=== PATIENT | female | born 1935 | race Caucasian/White ===

== ENCOUNTER 2017-05-15 11:55 | Observation (INO) | payer MEDICARE, SELFPAY ==
[2017-05-15] VITALS (20 sets, daily range): BP systolic 103–181; BP diastolic 56–102; PULSE 63–181; RESP 12–28; TEMP 36.7–36.9; O2SAT 94–100; BMI 20.4; BMI 19.5
--- NOTE | 2017-05-15 12:05 | EKG12_ITS ---
Test Reason : CP Blood Pressure : / mmHG Vent. Rate : 154 BPM Atrial Rate : 156 BPM P-R Int : 000 ms QRS Dur : 086 ms QT Int : 292 ms P-R-T Axes : 000 045 175 degrees QTc Int : 467 ms Atrial fibrillation Marked ST abnormality, possible inferolateral subendocardial injury Abnormal ECG Confirmed by ZACK BOYCE, MAURO ([id number]), general expeditor EM LANDA ([id number] on 05/19/2017 3:51:19 PM Referred By: JOSE Confirmed By:MAURO DIXON MD
--- NOTE | 2017-05-15 12:05 | RAD_ITS ---
STUDY: X-RAY CHEST REASON FOR EXAM: Female, 81 years old. Chest pressure. TECHNIQUE: Single AP portable view of the chest. COMPARISON: Comparison is made with prior study dated March 28, 2015. FINDINGS: EKG electrodes are seen. Hyperinflation. Mild increased markings at the left lung base suggests left pleural linear scarring. There is no demonstrated pleural abnormality. Sternal cerclage wires and vascular clips are present from a prior sternotomy and coronary artery bypass graft procedure (CABG). Normal mediastinum and alexus. Normal visualized pulmonary arteries. There is atherosclerotic calcification of the aortic arch with tortuosity. Normal visualized thoracic spine. Right shoulder replacement. There is no demonstrated abnormality of the visualized soft tissue structures of the upper abdomen. RAD/Chest 1 View (Portable) IMPRESSION: Hyperinflation. Mild increased markings at the left lung base suggestive of scarring. Electronically Signed: Mariusz Alarcon MD at 12:33 EST Tel [phone], Service support ,
--- NOTE | 2017-05-15 12:07 | ED.VISSUMM ---
- ER Visit Summary Date of Service: 05/15/17 Chief Complaint: [] Rapid heart rate chest pain History of Present Illness: The patient is a 81 F [] patient reports that today she noticed rapid heart rate and chest pain she stated for a few days she is generally not felt well but nothing specific the chest pain and rapid heart rate began today. She has had no fever no cough no flu symptoms normal bowel bladder habits. She is a very uncertain historian she has a history of what appears to be a CABG and/or cardiac valve surgery, one cardiac stent and a history of intermittent A. fib, she denies a history of DE PE DVT she is not on any blood thinners or aspirin therapy she has had normal bowel bladder habits Physical Examination: [] She is noted to have A. fib 1 50- 160 on the monitor her blood pressure is 180/80 she is awake and alert feeling better now on oxygen given. And says her HEENT exam is unremarkable the heart tones are regular the lungs are diminished the abdomen soft nontender upper lower extremities unremarkable neurologically she is awake alert moving all 4 she does appear to have a CABG type healed old incision to her chest Test Results: [] Emergency Department Course and Treatment: [] She will receive aggressive therapy for the A. fib rate control fluids evaluation, additional 5 mg metoprolol given and now Heart rate now is about 120-130, additional dose of Cardizem 10 mg has been ordered, her labs chest x-ray are unremarkable she is feeling better She apparently has a history of some unspecified cardiac valvular heart disorder there is no clear documentation of cardiac valve surgery, she has a history of intermittent recurring A. fib, she is not sure of her meds Rapid A. fib RVR and the chest pain of asked the hospital see her for further management admission Treatment Plan: [] Disposition: [] Stable admit Impression: [] Chest pain, A. fib RVR, history of CAD and CABG, history of unspecified cardiac valvular heart disorder This note was generated with [employer] dictation software. It may contain incorrect words, spelling, and punctuation that were not noted in review of the chart prior to signing ED Disposition - Plan for ED Patient: Chief Complaint: Chest Pain Referrals: Rachel Bernabe DO [Primary Care Provider] -
[2017-05-15] MEDS: Ondansetron 4 MG/2 ML Vial IV (12:18)
[2017-05-15] MEDS: Metoprolol Tartrate 5 MG/5 ML Vial IV (12:19)
[2017-05-15 12:29] LABS: Absolute Lymphocyte Count 4.22 X10^3/ul (0.83-4.51); Basophil# 0.01 X10^3/uL; Basophil% 0.1 % (0-1); Eosinophil# 0.19 X10^3/uL; Eosinophils% 2.2 % (0-5); Hematocrit 39.1 % (37-47); Hemoglobin 12.8 g/dl (12.0-15.0); Lymphocyte # 4.22 X10^3/ul (4.0); Mean Corp Hgb Conc 32.7 g/gl (32-36); Mean Corpuscular Hgb 30.7 pg (27.0-32.0); Mean Corpuscular Volume 93.8 fL (81-99); Mean Platelet Vol. 9.5 fl (6.2-12.0); Monocyte# 1.18 X10^3/uL; Monocyte% 13.7 % (0-10); Neutrophil % 34.9 % (47-70); Platelet Count 275 K/mm3 (150-450); RBC Distribution Width CV 14.1 % (11.6-14.6); RBC Distribution Width SD 47.8 fl (35.1-43.9); Red Blood Count 4.17 M/mm3 (4.2-5.4); White Blood Count 8.6 K/mm3 (4.4-11.0)
[2017-05-15 12:33] LABS: POSITIVE COUNT NO; POSITIVE DIFFERENTIAL NO; POSITIVE MORPHOLOGY NO
[2017-05-15] MEDS: 0.9% Normal Saline 1,000 ML 150 ML IV (12:33)
[2017-05-15] MEDS: Aspirin 81 MG TAB.CHEW 324 MG PO (12:37)
[2017-05-15 12:41] LABS: BUN 20 mg/dL (7-18); Creatinine, Serum 0.99 mg/dL (0.55-1.02); Glucose 131 mg/dL (70-110)
[2017-05-15 12:42] LABS: Anion Gap 11 (5-15); BUN/Creat Ratio 20.2 RATIO (10-20); Calcium,Total 9.1 mg/dL (8.5-10.1); Chloride 99 mmol/L (98-107); EST Glomerular Filtration Rate 57 mL/min (>60); Est Glom Filt Rate - Afr Amer 69 mL/min (>60); Estimated Creatinine Clearance 34.65 ml/min; Potassium 3.3 mmol/L (3.5-5.1); Sodium Level 135 mmol/L (136-145)
--- NOTE | 2017-05-15 12:44 | ED.RN ---
PER PT REQUEST, DAUGHTER CONTACTED
[2017-05-15 12:57] LABS: BNP,B-Type NATRIURETIC PEPTIDE 227.8 pg/mL (0-100)
[2017-05-15] MEDS: dilTIAZem 25 MG/5 ML Vial 10 MG IV BOLUS ×2 (13:51→15:50)
--- NOTE | 2017-05-15 14:07 | PCM.HP.STD ---
Problem List (1) Atrial fibrillation with RVR Status: Acute (2) History of aortic valve disorder Status: Chronic (3) Benign essential hypertension Status: Chronic (4) Coronary atherosclerosis of [place] coronary artery Status: Chronic Comment: status post CABG and stent. (5) Hx of CABG Status: Chronic (6) HLD (hyperlipidemia) Status: Chronic (7) Osteoarthritis Status: Chronic (8) Chest pain Status: Acute (9) Flatulence/gas pain/belching Status: Acute (10) Coronary artery disease Status: Chronic (11) Mild mitral regurgitation by prior echocardiogram Status: Chronic (12) Biatrial enlargement Status: Chronic (13) Atrial fibrillation Status: Acute (14) S/P CABG x 3 Status: Chronic (15) S/P PTCA (percutaneous transluminal coronary angioplasty) Status: Chronic (16) PVD (peripheral vascular disease) Status: Chronic (17) Mitral valve regurgitation Status: Chronic (18) Aortic valve disorder Status: Chronic (19) HTN (hypertension) Status: Chronic (20) Paroxysmal atrial flutter Status: Acute (21) Acute congestive heart failure Status: Acute (22) Anemia Status: Acute (23) History of coronary artery disease Status: Chronic (24) Atypical chest pain Status: Acute History of Present Illness Date of Admission: 05/15/17 Chief Complaint: Chest pain/palpitation The patient is a 81 year old F with extensive cardiac history including coronary artery disease status post three-vessel CABG in 02/23 status post stent after [address] or [address] [facility] came to ER with left-sided chest pain. She felt like palpitation/flutter waves today in the morning when she came home from driving. She also feels very dehydrated with first. She denies associated shortness of breath, dizziness, lightheadedness or syncope. She has history of A. fib but it is paroxysmal not on anticoagulation since CABG. In ED, EKG shows A. fib with RVR at 1 54 bpm. Chest x-ray shows hyperinflation with mild increased markings at left lung base but no features suggestive of pulmonary edema/congestion. She was admitted last time in March 2015 for CHF exacerbation and at that time 2D echo shows EF 55% with no regional wall motion abnormalities. Normal LV size and systolic function. LA mildly enlarged. Normal right atrium. Normal RV size and systolic function. Mild diffuse mitral valve thickening consistent with redundant mitral valve chordae tendineae. 2+ eccentric MR. Mild AR. Trivial TR. He also had pharmacological nuclear stress test at that time which did not show any tyndfk-[id number]-ioowgfr ischemia. [] Past Medical History Past Medical History (Chronic Problems): Chronic Problems History of aortic valve disorder (Chronic) Benign essential hypertension (Chronic) Coronary atherosclerosis of [place] coronary artery (Chronic) status post CABG and stent. Hx of CABG (Chronic) HLD (hyperlipidemia) (Chronic) Osteoarthritis (Chronic) Coronary artery disease (Chronic) Mild mitral regurgitation by prior echocardiogram (Chronic) Biatrial enlargement (Chronic) S/P CABG x 3 (Chronic) S/P PTCA (percutaneous transluminal coronary angioplasty) (Chronic) PVD (peripheral vascular disease) (Chronic) Mitral valve regurgitation (Chronic) Aortic valve disorder (Chronic) HTN (hypertension) (Chronic) History of coronary artery disease (Chronic) Allergies alendronate sodium [From Fosamax] Allergy (Verified 05/15/17 12:44) Unknown atorvastatin calcium [From Lipitor] Allergy (Verified 05/15/17 12:44) Unknown colestipol HCl [From Colestid] Allergy (Verified 05/15/17 12:44) Unknown cortisone acetate [From Cortone] Allergy (Verified 05/15/17 12:44) Unknown ezetimibe [From Zetia] Allergy (Verified 05/15/17 12:44) Unknown gabapentin Allergy (Verified 05/15/17 12:44) Unknown goserelin acetate [From Zoladex] Allergy (Verified 05/15/17 12:44) Unknown nabumetone Allergy (Verified 05/15/17 12:44) Other paroxetine HCl [From Paxil] Allergy (Verified 05/15/17 12:44) Unknown rosuvastatin calcium [From Crestor] Allergy (Verified 05/15/17 12:44) Unknown sertraline HCl [From Zoloft] Allergy (Verified 05/15/17 12:44) Unknown venlafaxine HCl [From Effexor] Allergy (Verified 05/15/17 12:44) Unknown acetaminophen [From Vicodin] Adverse Reaction (Verified 05/15/17 12:44) KEEPS ME AWAKE carvedilol Adverse Reaction (Verified 05/15/17 12:44) Unknown hydrocodone bitartrate [From Vicodin] Adverse Reaction (Verified 05/15/17 12:44) KEEPS ME AWAKE Home Medications: Ambulatory Orders Medication Instructions Recorded Aspirin [Aspirin, Baby] 81 mg PO DAILY@0800 03/28/15 Calcium Carbonate [Calcium] 600 mg PO DAILY 03/28/15 Isosorbide Mononitrate [Imdur] 60 mg PO DAILY 03/28/15 Lorazepam [Ativan] 0.5 mg PO DAILY PRN 03/28/15 Nitroglycerin [Nitrostat] 0.4 mg SUBLINGUAL Q5M PRN 03/28/15 [place]-3 Fatty Acids [Fish Oil] 1,000 mg PO DAILY 03/28/15 Ramipril [Altace] 10 mg PO BID #60 capsule 03/29/15 Omeprazole [Prilosec] 40 mg PO DAILY 05/16/16 Metoprolol(XL)Succ [Toprol Xl 25 mg PO DAILY 05/15/17 (Beta Jt)] Potassium (Otc) [Potassium Otc] 99 mg PO DAILY 05/15/17 Surgical History: angioplasty, coronary bypass surgery - Coronary artery bypass grafting was done in 2011. She also had a coronary stent the following year., total knee arthroplasty - the, - Smoking Status: Never smoker - *Family History Maternal History Items: Heart Disease Paternal History Items: Heart Disease Review of Systems Constitutional: Denies: Chills, Fever, Weight Change HEENT: Denies: Head Aches, Sinus Congestion, Sinus Drainage Cardiovascular: Reports: Chest Pain, Palpitations Respiratory: Denies: Cough, Shortness of breath at rest, Sputum production Gastrointestinal: Denies: Abdominal Pain, Nausea, Vomiting Genitourinary: Denies: Dysuria Musculoskeletal: Reports: Joint Pain. Denies: Joint Tenderness Skin: Denies: Rash, Wounds Neurological: Denies: Numbness, Tingling, Focal weakness Psychiatric: Denies: Anxiety, Depression, Homicidal Ideations, Suicidal Ideations Hematologic/ Lymphatic: Denies: Easy Bruising, Easy Bleeding VTE Information - Inpt Only VTE Present on Admission: No VTE Mechan Device Prophylaxis: SCD's VTE Pharm Prophylaxis ordered?: Yes Patient Problems: Active and Suspected Problems Atrial fibrillation with RVR (Acute) Atypical chest pain (Acute) - Physical Exam General: Alert, Oriented x3, Cooperative HEENT: Atraumatic, PERRLA, EOMI, Normocephalic Neck: Supple, No JVD, Negative Carotid Bruits Lungs: Clear to auscultation, No rhonchi, No rales, Diminished Cardiovascular: Normal S1, Normal S2, Irregular Rate, Murmur, Tachycardic Abdomen: Bowel Sounds Present, Soft, Non Tender, Non-Distended Extremities: No edema, Capillary Refill Less than 3 Seconds Skin: No rashes, No breakdown Musculoskeletal: No Tenderness to Palpation of Joints or Extremities, Arthritic Changes Neurological: Cranial nerves II-XII grossly intact Psych/Mental Status: Normal Affect, Appropriate Vital Signs Temp Pulse Resp BP Pulse Ox 98.0 F 125 H 17 123/72 H 100 05/15/17 11:56 05/15/17 13:54 05/15/17 13:54 05/15/17 13:54 05/15/17 13:54 Oxygen Flow Rate 2 Oxygen Delivery Method Nasal Cannula Assessment/Plan Active and Suspected Problems Atrial fibrillation with RVR (Acute) Atypical chest pain (Acute) The patient is a 81 year old F with extensive cardiac history including coronary artery disease status post three-vessel CABG in 02/23 status post stent after [address] [facility] came to ER with left-sided chest pain. She felt like palpitation/flutter waves today in the morning when she came home from driving. She also feels very dehydrated with first. She denies associated shortness of breath, dizziness, lightheadedness or syncope. She has history of A. fib but it is paroxysmal not on anticoagulation since CABG. In ED, EKG shows A. fib with RVR at 1 54 bpm. Chest x-ray shows hyperinflation with mild increased markings at left lung base but no features suggestive of pulmonary edema/congestion. She was admitted last time in March 2015 for CHF exacerbation and at that time 2D echo shows EF 55% with no regional wall motion abnormalities. Normal LV size and systolic function. LA mildly enlarged. Normal right atrium. Normal RV size and systolic function. Mild diffuse mitral valve thickening consistent with redundant mitral valve chordae tendineae. 2+ eccentric MR. Mild AR. Trivial TR. He also had pharmacological nuclear stress test at that time which did not show any wnsmqx-zptkpzb-jeiokof ischemia. 1. Atypical chest pain most probably due to A. fib with RVR: Patient is being admitted on the PCU. Started on IV Cardizem drip after Cardizem 10 mg IV ?2 bolus. Serial cardiac enzymes. BNP is elevated but patient does not have features of CHF exacerbation. 2D echo is ordered. Consulted Dr. Wilkinson. Patient is on aspirin, metoprolol, nitro sublingual, ramipril. Patient on Lovenox 1 mg/kg body weight. 2. Paroxysmal A. fib with RVR: As mentioned above. 3. Coronary artery status post CABG status post stent: Continue home cardiac medications as mentioned above. 4. Chronic diastolic heart failure: As per the 2D echo reported above patient has impaired relaxation of left ventricle. Clinical and radiological features not suggestive of acute CHF. 5. Valvular heart disease: As mentioned in 2D echo above, patient has eccentric mild to moderate MR, diffuse mitral valve thickening with redundant mitral valve chordae tendineae. Mild AR and trivial TR. Other chronic comorbidities include hypertension, dyslipidemia, chest pain, GERD, and anemia of chronic disease: Home medication reconciliation done. Advanced directive: Patient has living will. She does not want life-sustaining treatment including CPR and artificial or machine support including intubation if she is in terminal condition. Patient is DNR CC arrest. About 16 minutes is spent in discussion with the advanced directive. DVT prophylaxis: Already on Lovenox 1 mg/kg body weight. Clinical Impression(s) from Imaging Studies Chest X-Ray 05/15/17 12:05 IMPRESSION: Hyperinflation. Mild increased markings at the left lung base suggestive of scarring. Electronically Signed: Mariusz Alarcon MD at 12:33 EST Tel [phone], Service support , Code Visit Inpatient E&M: 87306 Init Hosp L3 Procedures: 23187 Advncd Care Plan 30 Min
--- NOTE | 2017-05-15 14:23 | HP.PCM_ITS ---
Problem List (1) Atrial fibrillation with RVR Status: Acute (2) History of aortic valve disorder Status: Chronic (3) Benign essential hypertension Status: Chronic (4) Coronary atherosclerosis of [place] coronary artery Status: Chronic Comment: status post CABG and stent. (5) Hx of CABG Status: Chronic (6) HLD (hyperlipidemia) Status: Chronic (7) Osteoarthritis Status: Chronic (8) Chest pain Status: Acute (9) Flatulence/gas pain/belching Status: Acute (10) Coronary artery disease Status: Chronic (11) Mild mitral regurgitation by prior echocardiogram Status: Chronic (12) Biatrial enlargement Status: Chronic (13) Atrial fibrillation Status: Acute (14) S/P CABG x 3 Status: Chronic (15) S/P PTCA (percutaneous transluminal coronary angioplasty) Status: Chronic (16) PVD (peripheral vascular disease) Status: Chronic (17) Mitral valve regurgitation Status: Chronic (18) Aortic valve disorder Status: Chronic (19) HTN (hypertension) Status: Chronic (20) Paroxysmal atrial flutter Status: Acute (21) Acute congestive heart failure Status: Acute (22) Anemia Status: Acute (23) History of coronary artery disease Status: Chronic (24) Atypical chest pain Status: Acute History of Present Illness Date of Admission: 05/15/17 Chief Complaint: Chest pain/palpitation The patient is a 81 year old F with extensive cardiac history including coronary artery disease status post three-vessel CABG in 02/23 status post stent after 1 or 2 years in [facility] came to ER with left-sided chest pain. She felt like palpitation/flutter waves today in the morning when she came home from driving. She also feels very dehydrated with first. She denies associated shortness of breath, dizziness, lightheadedness or syncope. She has history of A. fib but it is paroxysmal not on anticoagulation since CABG. In ED, EKG shows A. fib with RVR at 1 54 bpm. Chest x-ray shows hyperinflation with mild increased markings at left lung base but no features suggestive of pulmonary edema/congestion. She was admitted last time in March 2015 for CHF exacerbation and at that time 2D echo shows EF 55% with no regional wall motion abnormalities. Normal LV size and systolic function. LA mildly enlarged. Normal right atrium. Normal RV size and systolic function. Mild diffuse mitral valve thickening consistent with redundant mitral valve chordae tendineae. 2+ eccentric MR. Mild AR. Trivial TR. He also had pharmacological nuclear stress test at that time which did not show any lhmgsy-erxuyae-gwlmixl ischemia. [] Past Medical History Past Medical History (Chronic Problems): Chronic Problems History of aortic valve disorder (Chronic) Benign essential hypertension (Chronic) Coronary atherosclerosis of [place] coronary artery (Chronic) status post CABG and stent. Hx of CABG (Chronic) HLD (hyperlipidemia) (Chronic) Osteoarthritis (Chronic) Coronary artery disease (Chronic) Mild mitral regurgitation by prior echocardiogram (Chronic) Biatrial enlargement (Chronic) S/P CABG x 3 (Chronic) S/P PTCA (percutaneous transluminal coronary angioplasty) (Chronic) PVD (peripheral vascular disease) (Chronic) Mitral valve regurgitation (Chronic) Aortic valve disorder (Chronic) HTN (hypertension) (Chronic) History of coronary artery disease (Chronic) Allergies alendronate sodium [From Fosamax] Allergy (Verified 05/15/17 12:44) Unknown atorvastatin calcium [From Lipitor] Allergy (Verified 05/15/17 12:44) Unknown colestipol HCl [From Colestid] Allergy (Verified 05/15/17 12:44) Unknown cortisone acetate [From Cortone] Allergy (Verified 05/15/17 12:44) Unknown ezetimibe [From Zetia] Allergy (Verified 05/15/17 12:44) Unknown gabapentin Allergy (Verified 05/15/17 12:44) Unknown goserelin acetate [From Zoladex] Allergy (Verified 05/15/17 12:44) Unknown nabumetone Allergy (Verified 05/15/17 12:44) Other paroxetine HCl [From Paxil] Allergy (Verified 05/15/17 12:44) Unknown rosuvastatin calcium [From Crestor] Allergy (Verified 05/15/17 12:44) Unknown sertraline HCl [From Zoloft] Allergy (Verified 05/15/17 12:44) Unknown venlafaxine HCl [From Effexor] Allergy (Verified 05/15/17 12:44) Unknown acetaminophen [From Vicodin] Adverse Reaction (Verified 05/15/17 12:44) KEEPS ME AWAKE carvedilol Adverse Reaction (Verified 05/15/17 12:44) Unknown hydrocodone bitartrate [From Vicodin] Adverse Reaction (Verified 05/15/17 12:44) KEEPS ME AWAKE Home Medications: Ambulatory Orders Medication Instructions Recorded Aspirin [Aspirin, Baby] 81 mg PO DAILY@0800 03/28/15 Calcium Carbonate [Calcium] 600 mg PO DAILY 03/28/15 Isosorbide Mononitrate [Imdur] 60 mg PO DAILY 03/28/15 Lorazepam [Ativan] 0.5 mg PO DAILY PRN 03/28/15 Nitroglycerin [Nitrostat] 0.4 mg SUBLINGUAL Q5M PRN 03/28/15 Holiday-3 Fatty Acids [Fish Oil] 1,000 mg PO DAILY 03/28/15 Ramipril [Altace] 10 mg PO BID #60 capsule 03/29/15 Omeprazole [Prilosec] 40 mg PO DAILY 05/16/16 Metoprolol(XL)Succ [Toprol Xl 25 mg PO DAILY 05/15/17 (Beta Jt)] Potassium (Otc) [Potassium Otc] 99 mg PO DAILY 05/15/17 Surgical History: angioplasty, coronary bypass surgery - Coronary artery bypass grafting was done in 2011. She also had a coronary stent the following year., total knee arthroplasty - the, - Smoking Status: Never smoker - *Family History Maternal History Items: Heart Disease Paternal History Items: Heart Disease Review of Systems Constitutional: Denies: Chills, Fever, Weight Change HEENT: Denies: Head Aches, Sinus Congestion, Sinus Drainage Cardiovascular: Reports: Chest Pain, Palpitations Respiratory: Denies: Cough, Shortness of breath at rest, Sputum production Gastrointestinal: Denies: Abdominal Pain, Nausea, Vomiting Genitourinary: Denies: Dysuria Musculoskeletal: Reports: Joint Pain. Denies: Joint Tenderness Skin: Denies: Rash, Wounds Neurological: Denies: Numbness, Tingling, Focal weakness Psychiatric: Denies: Anxiety, Depression, Homicidal Ideations, Suicidal Ideations Hematologic/ Lymphatic: Denies: Easy Bruising, Easy Bleeding VTE Information - Inpt Only VTE Present on Admission: No VTE Mechan Device Prophylaxis: SCD's VTE Pharm Prophylaxis ordered?: Yes Patient Problems: Active and Suspected Problems Atrial fibrillation with RVR (Acute) Atypical chest pain (Acute) - Physical Exam General: Alert, Oriented x3, Cooperative HEENT: Atraumatic, PERRLA, EOMI, Normocephalic Neck: Supple, No JVD, Negative Carotid Bruits Lungs: Clear to auscultation, No rhonchi, No rales, Diminished Cardiovascular: Normal S1, Normal S2, Irregular Rate, Murmur, Tachycardic Abdomen: Bowel Sounds Present, Soft, Non Tender, Non-Distended Extremities: No edema, Capillary Refill Less than 3 Seconds Skin: No rashes, No breakdown Musculoskeletal: No Tenderness to Palpation of Joints or Extremities, Arthritic Changes Neurological: Cranial nerves II-XII grossly intact Psych/Mental Status: Normal Affect, Appropriate Vital Signs Temp Pulse Resp BP Pulse Ox 98.0 F 125 H 17 123/72 H 100 05/15/17 11:56 05/15/17 13:54 05/15/17 13:54 05/15/17 13:54 05/15/17 13:54 Oxygen Flow Rate 2 Oxygen Delivery Method Nasal Cannula Assessment/Plan Active and Suspected Problems Atrial fibrillation with RVR (Acute) Atypical chest pain (Acute) The patient is a 81 year old F with extensive cardiac history including coronary artery disease status post three-vessel CABG in 02/23 status post stent after 1 or 2 years in [facility] came to ER with left-sided chest pain. She felt like palpitation/flutter waves today in the morning when she came home from driving. She also feels very dehydrated with first. She denies associated shortness of breath, dizziness, lightheadedness or syncope. She has history of A. fib but it is paroxysmal not on anticoagulation since CABG. In ED, EKG shows A. fib with RVR at 1 54 bpm. Chest x-ray shows hyperinflation with mild increased markings at left lung base but no features suggestive of pulmonary edema/congestion. She was admitted last time in March 2015 for CHF exacerbation and at that time 2D echo shows EF 55% with no regional wall motion abnormalities. Normal LV size and systolic function. LA mildly enlarged. Normal right atrium. Normal RV size and systolic function. Mild diffuse mitral valve thickening consistent with redundant mitral valve chordae tendineae. 2+ eccentric MR. Mild AR. Trivial TR. He also had pharmacological nuclear stress test at that time which did not show any etwthe-catmwjs-kioncfw ischemia. 1. Atypical chest pain most probably due to A. fib with RVR: Patient is being admitted on the PCU. Started on IV Cardizem drip after Cardizem 10 mg IV ?2 bolus. Serial cardiac enzymes. BNP is elevated but patient does not have features of CHF exacerbation. 2D echo is ordered. Consulted Dr. Wilkinson. Patient is on aspirin, metoprolol, nitro sublingual, ramipril. Patient on Lovenox 1 mg/kg body weight. 2. Paroxysmal A. fib with RVR: As mentioned above. 3. Coronary artery status post CABG status post stent: Continue home cardiac medications as mentioned above. 4. Chronic diastolic heart failure: As per the 2D echo reported above patient has impaired relaxation of left ventricle. Clinical and radiological features not suggestive of acute CHF. 5. Valvular heart disease: As mentioned in 2D echo above, patient has eccentric mild to moderate MR, diffuse mitral valve thickening with redundant mitral valve chordae tendineae. Mild AR and trivial TR. Other chronic comorbidities include hypertension, dyslipidemia, chest pain, GERD , and anemia of chronic disease: Home medication reconciliation done. Advanced directive: Patient has living will. She does not want life-sustaining treatment including CPR and artificial or machine support including intubation if she is in terminal condition. Patient is DNR CC arrest. About 16 minutes is spent in discussion with the advanced directive. DVT prophylaxis: Already on Lovenox 1 mg/kg body weight. Clinical Impression(s) from Imaging Studies Chest X-Ray 05/15/17 12:05 IMPRESSION: Hyperinflation. Mild increased markings at the left lung base suggestive of scarring. Electronically Signed: Mariusz Alarcon MD at 12:33 EST Tel [phone], Service support , Code Visit Inpatient E&M: 01052 Init Hosp L3 Procedures: 60269 Advncd Care Plan 30 Min
--- NOTE | 2017-05-15 14:29 | ECHOD_ITS ---
Reason For Study: AFib/Heart Failure Procedure This was a 2D Doppler, Color Flow transthoracic echocardiogram. The study was technically difficult. Exam performed portable in patient room. Left Ventricle Normal LV size. Left ventricular systolic function is normal. The estimated ejection fraction is 65 %. Transmitral diastolic flow velocities suggest severe (stage 3) diastolic dysfunction. No regional wall motion abnormalities noted. Right Ventricle Normal RV size. Normal systolic function. Atria Normal left atrium. Normal right atrium. Mitral Valve Mild focal mitral valve calcification of the anterior leaflet. Mild (1+) eccentric mitral valve insufficiency. Tricuspid Valve Normal tricuspid valve. Mild (1+) tricuspid valve insufficiency. Pulmonary artery systolic pressure is 29 mmHg. Aortic Valve Trisinus/trileaflet aortic valve. Mild focal aortic valve calcification. Pulmonic Valve Normal pulmonic valve. Trivial pulmonic valve insufficiency. Great Vessels Normal aortic root. The pulmonary artery is normal size. Normal inferior vena cava. Pericardium/Pleural No pericardial effusion. MMode/2D Measurements & Calculations LVIDd: 3.5 cm IVSd: 1.1 cm LVOT diam: 2.0 cm LVIDs: 2.2 cm LVPWd: 1.0 cm LVOT area: 3.2 cm2 FS: 38.1 % Ao root diam: 2.8 cm LAV(MOD-sp4): 47.4 ml LA A4 area: 17.6 cm2 LA dimension: 3.5 cm RA A4 area: 14.4 cm2 Time Measurements MV dec time: 0.19 sec Doppler Measurements & Calculations MV E max clementina: 79.3 cm/sec MV V2 max: 123.1 cm/sec MV P1/2t max clementina: 93.1 cm/sec MV A max clementina: 27.8 cm/sec MV max P.1 mmHg MV P1/2t: 35.7 msec MV E/A: 2.9 MV V2 mean: 65.5 cm/sec MV dec slope: 764.1 cm/sec2 MV mean P.1 mmHg MVA(P1/2t): 6.2 cm2 MV V2 VTI: 18.5 cm MVA(VTI): 3.1 cm2 Ao V2 max: 117.8 cm/sec AI max clementina: 414.8 cm/sec LV V1 max: 98.1 cm/sec Ao max P.5 mmHg AI max P.8 mmHg LV V1 max P.9 mmHg Ao V2 mean: 85.0 cm/sec AI dec slope: 226.6 cm/sec2 LV V1 mean P.7 mmHg Ao mean P.2 mmHg AI P1/2t: 536.0 msec LV V1 mean: 59.6 cm/sec Ao V2 VTI: 20.4 cm LV V1 VTI: 17.8 cm MATT(I,D): 2.8 cm2 MATT(V,D): 2.7 cm2 SV(LVOT): 57.5 ml PA V2 max: 72.5 cm/sec TR max clementina: 244.2 cm/sec TR max P.8 mmHg Interpretation Summary Normal LV size. Left ventricular systolic function is normal. The estimated ejection fraction is 65 %. Transmitral diastolic flow velocities suggest severe (stage 3) diastolic dysfunction Mild (1+) tricuspid valve insufficiency. Ordering Physician: Rajesh Sun Referring Physician: Rachel Bernabe Performed By: Sathish Myles RCS
[2017-05-15 14:52] LABS: AST(SGOT) 21 U/L (15-37); Alanine Aminotransfer ALT/SGPT 20 U/L (13-56); Albumin, Serum 3.8 g/dL (3.2-5.0); Alkaline Phosphatase 71 U/L (45-117); Bilirubin, Direct 0.17 mg/dL (0.00-0.30); Globulin 3.4 g/dL (2.2-4.2); Protein, Total 7.2 g/dL (6.4-8.2)
[2017-05-15] MEDS: 0.9% Normal Saline 1,000 ML 100 ML IV (15:50)
[2017-05-15] MEDS: Metoprolol(XL)Succ 25 MG Tablet PO (16:16)
[2017-05-15] MEDS: Enoxaparin 60 MG/0.6 ML Syringe 50 MG SC (16:16)
--- NOTE | 2017-05-15 20:25 | PCM.CONS.C ---
Problem List (1) Atrial fibrillation Status: Acute Qualifiers: Atrial fibrillation type: paroxysmal Qualified Code(s): I48.0 - Paroxysmal atrial fibrillation (2) Coronary atherosclerosis of [place] coronary artery Status: Chronic Qualifiers: [place] vs. transplanted heart: [place] heart Comment: status post CABG and stent. (3) Hx of CABG Status: Chronic (4) S/P PTCA (percutaneous transluminal coronary angioplasty) Status: Chronic (5) Mitral valve regurgitation Status: Chronic Qualifiers: Cardiac valve disease etiology: nonrheumatic Qualified Code(s): I34.0 - Nonrheumatic mitral (valve) insufficiency (6) History of aortic valve disorder Status: Chronic (7) Diastolic CHF, chronic Status: Chronic (8) Thoracic aortic aneurysm Status: Chronic (9) HLD (hyperlipidemia) Status: Chronic Qualifiers: Hyperlipidemia type: unspecified Qualified Code(s): E78.5 - Hyperlipidemia, unspecified (10) HTN (hypertension) Status: Chronic Qualifiers: Hypertension type: essential hypertension Qualified Code(s): I10 - Essential (primary) hypertension Reason for Consult Date of Consultation: 05/15/17 History of Present Illness: The patient is a 81 year old white female with a past cardiovascular history which has included underlying CAD, status post PCI, status post CABG, congestive heart failure, paroxysmal atrial fibrillation, MR, aortic valve disorder, ascending aortic aneurysm, hyperlipidemia, and hypertension who presents for evaluation of atrial fibrillation with rapid ventricular response. She states she has not been feeling well for the last couple of days . She believes her heart rate has changed on and off. Today she noted her heart rate going faster. She also noted associated chest and neck discomfort. She felt somewhat more short of breath and dyspneic. She had nausea but no emesis. There was diaphoresis. She had no near syncope or syncope. She was brought to the hospital for further evaluation. In the emergency department she had a cardiac enzyme level performed which was negative. She had an ECG performed and demonstrated atrial fibrillation with rapid ventricular response with nonspecific ST and segment abnormality potentially compatible with inferior-lateral myocardial ischemia/subendocardial injury. A chest x-ray demonstrated no acute changes. She subsequently had a transthoracic echocardiogram performed. The left ventricle was normal with an LVEF of 65%, mild MR, mild TR, mild focal aortic valve calcification, trivial PI, and an estimated RV systolic pressure 29 mmHg. There was decreased diastolic compliance. She was treated medically with IV diltiazem. She had subsequent slowing of her heart rate and subsequent return to sinus rhythm. She has had follow-up troponin I levels. They have been negative thus far. She has denied any recent orthopnea or PND or peripheral pitting edema. She states she has had leg cramping sensation. [] Past Medical History Allergies/Adverse Reactions: Allergies alendronate sodium [From Fosamax] Allergy (Verified 05/15/17 12:44) Unknown atorvastatin calcium [From Lipitor] Allergy (Verified 05/15/17 12:44) Unknown colestipol HCl [From Colestid] Allergy (Verified 05/15/17 12:44) Unknown cortisone acetate [From Cortone] Allergy (Verified 05/15/17 12:44) Unknown ezetimibe [From Zetia] Allergy (Verified 05/15/17 12:44) Unknown gabapentin Allergy (Verified 05/15/17 12:44) Unknown goserelin acetate [From Zoladex] Allergy (Verified 05/15/17 12:44) Unknown nabumetone Allergy (Verified 05/15/17 12:44) Other paroxetine HCl [From Paxil] Allergy (Verified 05/15/17 12:44) Unknown rosuvastatin calcium [From Crestor] Allergy (Verified 05/15/17 12:44) Unknown sertraline HCl [From Zoloft] Allergy (Verified 05/15/17 12:44) Unknown venlafaxine HCl [From Effexor] Allergy (Verified 05/15/17 12:44) Unknown acetaminophen [From Vicodin] Adverse Reaction (Verified 05/15/17 12:44) KEEPS ME AWAKE carvedilol Adverse Reaction (Verified 05/15/17 12:44) Unknown hydrocodone bitartrate [From Vicodin] Adverse Reaction (Verified 05/15/17 12:44) KEEPS ME AWAKE Home Medications: Ambulatory Orders Medication Instructions Recorded Aspirin [Aspirin, Baby] 81 mg PO DAILY@0800 03/28/15 Calcium Carbonate [Calcium] 600 mg PO DAILY 03/28/15 Isosorbide Mononitrate [Imdur] 60 mg PO DAILY 03/28/15 Lorazepam [Ativan] 0.5 mg PO DAILY PRN 03/28/15 Nitroglycerin [Nitrostat] 0.4 mg SUBLINGUAL Q5M PRN 03/28/15 [place]-3 Fatty Acids [Fish Oil] 1,000 mg PO DAILY 03/28/15 Ramipril [Altace] 10 mg PO BID #60 capsule 03/29/15 Omeprazole [Prilosec] 40 mg PO DAILY 05/16/16 Metoprolol(XL)Succ [Toprol Xl 25 mg PO DAILY 05/15/17 (Beta Jt)] Potassium (Otc) [Potassium Otc] 99 mg PO DAILY 05/15/17 Past Medical History (Chronic Problems): Chronic Problems History of aortic valve disorder (Chronic) Benign essential hypertension (Chronic) Coronary atherosclerosis of [place] coronary artery (Chronic) status post CABG and stent. Hx of CABG (Chronic) HLD (hyperlipidemia) (Chronic) Osteoarthritis (Chronic) Coronary artery disease (Chronic) Mild mitral regurgitation by prior echocardiogram (Chronic) Biatrial enlargement (Chronic) S/P CABG x 3 (Chronic) S/P PTCA (percutaneous transluminal coronary angioplasty) (Chronic) PVD (peripheral vascular disease) (Chronic) Mitral valve regurgitation (Chronic) Aortic valve disorder (Chronic) HTN (hypertension) (Chronic) History of coronary artery disease (Chronic) Diastolic CHF, chronic (Chronic) Thoracic aortic aneurysm (Chronic) Surgical History: angioplasty, coronary bypass surgery - Coronary artery bypass grafting was done in 2011. She also had a coronary stent the following year., total knee arthroplasty - the, - - *Family History Maternal History Items: Heart Disease Paternal History Items: Heart Disease Smoking Status: Never smoker Alcohol: None Drugs: None Review of Systems - Review of Systems General: Denies: Fever, Night Sweats, Fatigue Cardiovascular: Reports: Chest Discomfort, Chest Discomfort at Rest, Shortness of Breath, Shortness of Breath at Rest. Denies: Orthopnea, PND, Peripheral Edema, Palpitations, Lightheadedness, Dizziness, Near Syncope, Syncope Respiratory: Denies: Cough, Sputum Production, Hemoptysis Gastrointestinal: Denies: Hematemesis, Hematochezia, Melena Genitourinary: Denies: Dysuria, Hematuria Skin: Denies: Rash Subjectve: Is an 81-year-old somewhat frail appearing white female who appears to be resting comfortably at the moment in no acute distress. Objective: Vital Signs Temp Pulse Resp BP Pulse Ox 98.1 F 82 16 127/59 H 97 05/15/17 16:35 05/15/17 18:53 05/15/17 16:35 05/15/17 16:35 05/15/17 16:35 Oxygen Flow Rate 2 Oxygen Delivery Method Room Air Weight: 107 lb 2.314 oz Body Mass Index (BMI) 19.5 Intake and Output for Last 24 Hours 05/13/17 05/14/17 05/15/17 23:59 23:59 23:59 Intake Total 700 / 700 Output Total 400 / 400 Balance 300 / 300 General: Awake, Alert, Oriented x 3, Cooperative, No Acute Distress Neck: No JVD Lungs: Clear to auscultation Cardiovascular: Regular Rhythm, Premature Ectopic Beats, Normal S1, Normal S2 Murmur Murmur: Grade 2/6, Harsh, Mid Systolic, LLSB, LVOT, Sternal Notch Vascular: No Carotid Bruits Abdomen: Bowel Sounds Present, Soft, Non Tender Extremities: No Cyanosis, No Clubbing, No edema 05/15/17 16:17: Troponin I 0.03 Rhythm: Sinus rhythm EKG: As noted above ECHO: As noted above Stress Test: 06/07/2014: Pharmacologic ECG with associated 0.[address] segment depression in leads II, III, aVF, and V5 through V6 as well as subsequent cardiac rhythm issues with PACs and atrial fibrillation with rapid ventricular response with associated diffuse ST segment depression; pharmacologic stress nuclear imaging study: Findings compatible with shifting soft tissue attenuation/artifact with no myocardial perfusion changes consider diagnostic for stress-induced myocardial ischemia or previous myocardial injury/infarction Cardiac Cath: 06/07/2014: Elevated left ventricular end-diastolic pressure compatible decreased diastolic compliance; left ventricle normal with an LVEF of 65%; left main coronary artery with minimal luminal irregularities; LAD with proximal diffuse irregular 85% stenosis and subsequent subtotally occluded the remainder the vessel filling predominantly from PRO graft flow; third diagonal branch with proximal diffuse irregular 95% stenosis; LCx with mid diffuse irregular 50% stenosis; OM1 occluded and filling from the SVG graft; RCA large dominant vessel diffusely diseased with proximal to distal 50-75% stenosis and distal 95% stenosis; right PDA with mid 50-75% stenosis; PRO to the LAD patent-small vessel-with minimal luminal irregularities; SVG to the OM system patent with a mid stented segment patent; SVG to RCA patent; mitral valve with mild to moderate MR; aortic root with possible dilatation CT Surgery: 10/20/2009: [facility]: PRO to the LAD, SVG to the OM, and SVG to the right PDA CXR: As noted above Assessment/Plan 1. Atrial fibrillation with rapid ventricular response The patient has had recurrent atrial fibrillation with rapid ventricular response. She has been on antiplatelet therapy and limiting therapy. She has been placed on anticoagulant therapy with anoxic parent/Lovenox. At the present time she is now back in sinus rhythm. Her rate and rhythm will be followed. Consideration will be given to the need for additional medical therapy such as anti-arrhythmic therapy as well as anticoagulant therapy. There have been concerns in the past with respect anticoagulant therapy with her age, somewhat frail status, and multiple medical conditions. 2. CAD status post CABG status post PCI Her initial cardiac enzymes are negative. Her ECG did demonstrate associated ST segment changes as noted above. It is unclear as to whether her symptoms and her associated changes are related to her underlying atrial fibrillation with rapid ventricular response versus her coronary artery disease process being the initiator of her atrial fibrillation rapid ventricular response. At the moment she will continue to be monitored. Her cardiac enzymes and ECG will be followed. It would not be unreasonable to consider a follow-up pharmacologic stress nuclear imaging study to reassess her coronary physiology and ischemic burden. Depending upon her findings she may or may not need repeat diagnostic cardiac catheterization. In the interim she will continue medical management. This will include her antiplatelet therapy, nitrates, beta-blockers, PEACE inhibitors, anticoagulants as deemed appropriate, etc. She has had multiple intolerances to multiple lipid-lowering agents such as statins. 3. Mitral valve disorder She has had a history of an underlying mitral valve disorder with MR. She is undergone recent evaluation as noted above. She will continue to be followed. 4. Aortic valve disorder He does have an underlying aortic valve disorder. This may be contributing to her cardiac murmur. Again she has been reassessed noninvasively. This will continue to be followed. 5. CHF: Chronic diastolic mediated She does have a history of CHF which is thought to be chronic diastolic mediated secondary to her overall preserved LV systolic function. At the moment she is without acute symptoms of CHF. She will continue her combined medical management and follow-up. Her LV systolic function has been reassessed. It has remained preserved. 6. Thoracic aortic aneurysm She does have a history of an underlying dilatation of her thoracic aorta. She was assessed approximately 1 year ago with a chest CT scan. At that time her thoracic aorta, with respect to the ascending portion, appeared to be mildly dilated. This will be followed over time as deemed appropriate. 7. Hyperlipidemia She does have a history of hyperlipidemia. She has been intolerant to statin therapy. 8. Hypertension She will have her blood pressure monitored. She will continue antihypertensive therapy. Comment: The above was discussed and reviewed with the patient, her family members present, and Dr. Sun. This note was generated with [employer] Dict[employer] software. Every effort was made to ensure accuracy, however, computerized plunger machine operator mistakes may persist.
--- NOTE | 2017-05-15 20:36 | CON.PCM_ITS ---
Problem List (1) Atrial fibrillation Status: Acute Qualifiers: Atrial fibrillation type: paroxysmal Qualified Code(s): I48.0 - Paroxysmal atrial fibrillation (2) Coronary atherosclerosis of [place] coronary artery Status: Chronic Qualifiers: [place] vs. transplanted heart: [place] heart Comment: status post CABG and stent. (3) Hx of CABG Status: Chronic (4) S/P PTCA (percutaneous transluminal coronary angioplasty) Status: Chronic (5) Mitral valve regurgitation Status: Chronic Qualifiers: Cardiac valve disease etiology: nonrheumatic Qualified Code(s): I34.0 - Nonrheumatic mitral (valve) insufficiency (6) History of aortic valve disorder Status: Chronic (7) Diastolic CHF, chronic Status: Chronic (8) Thoracic aortic aneurysm Status: Chronic (9) HLD (hyperlipidemia) Status: Chronic Qualifiers: Hyperlipidemia type: unspecified Qualified Code(s): E78.5 - Hyperlipidemia , unspecified (10) HTN (hypertension) Status: Chronic Qualifiers: Hypertension type: essential hypertension Qualified Code(s): I10 - Essential (primary) hypertension Reason for Consult Date of Consultation: 05/15/17 History of Present Illness: The patient is a 81 year old white female with a past cardiovascular history which has included underlying CAD, status post PCI, status post CABG, congestive heart failure, paroxysmal atrial fibrillation, MR, aortic valve disorder, ascending aortic aneurysm, hyperlipidemia, and hypertension who presents for evaluation of atrial fibrillation with rapid ventricular response. She states she has not been feeling well for the last couple of days . She believes her heart rate has changed on and off. Today she noted her heart rate going faster. She also noted associated chest and neck discomfort. She felt somewhat more short of breath and dyspneic. She had nausea but no emesis. There was diaphoresis. She had no near syncope or syncope. She was brought to the hospital for further evaluation. In the emergency department she had a cardiac enzyme level performed which was negative. She had an ECG performed and demonstrated atrial fibrillation with rapid ventricular response with nonspecific ST and segment abnormality potentially compatible with inferior-lateral myocardial ischemia/subendocardial injury. A chest x-ray demonstrated no acute changes. She subsequently had a transthoracic echocardiogram performed. The left ventricle was normal with an LVEF of 65%, mild MR, mild TR, mild focal aortic valve calcification, trivial PI , and an estimated RV systolic pressure 29 mmHg. There was decreased diastolic compliance. She was treated medically with IV diltiazem. She had subsequent slowing of her heart rate and subsequent return to sinus rhythm. She has had follow-up troponin I levels. They have been negative thus far. She has denied any recent orthopnea or PND or peripheral pitting edema. She states she has had leg cramping sensation. [] Past Medical History Allergies/Adverse Reactions: Allergies alendronate sodium [From Fosamax] Allergy (Verified 05/15/17 12:44) Unknown atorvastatin calcium [From Lipitor] Allergy (Verified 05/15/17 12:44) Unknown colestipol HCl [From Colestid] Allergy (Verified 05/15/17 12:44) Unknown cortisone acetate [From Cortone] Allergy (Verified 05/15/17 12:44) Unknown ezetimibe [From Zetia] Allergy (Verified 05/15/17 12:44) Unknown gabapentin Allergy (Verified 05/15/17 12:44) Unknown goserelin acetate [From Zoladex] Allergy (Verified 05/15/17 12:44) Unknown nabumetone Allergy (Verified 05/15/17 12:44) Other paroxetine HCl [From Paxil] Allergy (Verified 05/15/17 12:44) Unknown rosuvastatin calcium [From Crestor] Allergy (Verified 05/15/17 12:44) Unknown sertraline HCl [From Zoloft] Allergy (Verified 05/15/17 12:44) Unknown venlafaxine HCl [From Effexor] Allergy (Verified 05/15/17 12:44) Unknown acetaminophen [From Vicodin] Adverse Reaction (Verified 05/15/17 12:44) KEEPS ME AWAKE carvedilol Adverse Reaction (Verified 05/15/17 12:44) Unknown hydrocodone bitartrate [From Vicodin] Adverse Reaction (Verified 05/15/17 12:44) KEEPS ME AWAKE Home Medications: Ambulatory Orders Medication Instructions Recorded Aspirin [Aspirin, Baby] 81 mg PO DAILY@0800 03/28/15 Calcium Carbonate [Calcium] 600 mg PO DAILY 03/28/15 Isosorbide Mononitrate [Imdur] 60 mg PO DAILY 03/28/15 Lorazepam [Ativan] 0.5 mg PO DAILY PRN 03/28/15 Nitroglycerin [Nitrostat] 0.4 mg SUBLINGUAL Q5M PRN 03/28/15 [place]-3 Fatty Acids [Fish Oil] 1,000 mg PO DAILY 03/28/15 Ramipril [Altace] 10 mg PO BID #60 capsule 03/29/15 Omeprazole [Prilosec] 40 mg PO DAILY 05/16/16 Metoprolol(XL)Succ [Toprol Xl 25 mg PO DAILY 05/15/17 (Beta Jt)] Potassium (Otc) [Potassium Otc] 99 mg PO DAILY 05/15/17 Past Medical History (Chronic Problems): Chronic Problems History of aortic valve disorder (Chronic) Benign essential hypertension (Chronic) Coronary atherosclerosis of [place] coronary artery (Chronic) status post CABG and stent. Hx of CABG (Chronic) HLD (hyperlipidemia) (Chronic) Osteoarthritis (Chronic) Coronary artery disease (Chronic) Mild mitral regurgitation by prior echocardiogram (Chronic) Biatrial enlargement (Chronic) S/P CABG x 3 (Chronic) S/P PTCA (percutaneous transluminal coronary angioplasty) (Chronic) PVD (peripheral vascular disease) (Chronic) Mitral valve regurgitation (Chronic) Aortic valve disorder (Chronic) HTN (hypertension) (Chronic) History of coronary artery disease (Chronic) Diastolic CHF, chronic (Chronic) Thoracic aortic aneurysm (Chronic) Surgical History: angioplasty, coronary bypass surgery - Coronary artery bypass grafting was done in 2011. She also had a coronary stent the following year., total knee arthroplasty - the, - - *Family History Maternal History Items: Heart Disease Paternal History Items: Heart Disease Smoking Status: Never smoker Alcohol: None Drugs: None Review of Systems - Review of Systems General: Denies: Fever, Night Sweats, Fatigue Cardiovascular: Reports: Chest Discomfort, Chest Discomfort at Rest, Shortness of Breath, Shortness of Breath at Rest. Denies: Orthopnea, PND, Peripheral Edema, Palpitations, Lightheadedness, Dizziness, Near Syncope, Syncope Respiratory: Denies: Cough, Sputum Production, Hemoptysis Gastrointestinal: Denies: Hematemesis, Hematochezia, Melena Genitourinary: Denies: Dysuria, Hematuria Skin: Denies: Rash Subjectve: Is an 81-year-old somewhat frail appearing white female who appears to be resting comfortably at the moment in no acute distress. Objective: Vital Signs Temp Pulse Resp BP Pulse Ox 98.1 F 82 16 127/59 H 97 05/15/17 16:35 05/15/17 18:53 05/15/17 16:35 05/15/17 16:35 05/15/17 16:35 Oxygen Flow Rate 2 Oxygen Delivery Method Room Air Weight: 107 lb 2.314 oz Body Mass Index (BMI) 19.5 Intake and Output for Last 24 Hours 05/13/17 05/14/17 05/15/17 23:59 23:59 23:59 Intake Total 700 / 700 Output Total 400 / 400 Balance 300 / 300 General: Awake, Alert, Oriented x 3, Cooperative, No Acute Distress Neck: No JVD Lungs: Clear to auscultation Cardiovascular: Regular Rhythm, Premature Ectopic Beats, Normal S1, Normal S2 Murmur Murmur: Grade 2/6, Harsh, Mid Systolic, LLSB, LVOT, Sternal Notch Vascular: No Carotid Bruits Abdomen: Bowel Sounds Present, Soft, Non Tender Extremities: No Cyanosis, No Clubbing, No edema 05/15/17 16:17: Troponin I 0.03 Rhythm: Sinus rhythm EKG: As noted above ECHO: As noted above Stress Test: 06/07/2014: Pharmacologic ECG with associated 0.[address] segment depression in leads II, III, aVF, and V5 through V6 as well as subsequent cardiac rhythm issues with PACs and atrial fibrillation with rapid ventricular response with associated diffuse ST segment depression; pharmacologic stress nuclear imaging study: Findings compatible with shifting soft tissue attenuation/artifact with no myocardial perfusion changes consider diagnostic for stress-induced myocardial ischemia or previous myocardial injury/ infarction Cardiac Cath: 06/07/2014: Elevated left ventricular end-diastolic pressure compatible decreased diastolic compliance; left ventricle normal with an LVEF of 65%; left main coronary artery with minimal luminal irregularities; LAD with proximal diffuse irregular 85% stenosis and subsequent subtotally occluded the remainder the vessel filling predominantly from PRO graft flow; third diagonal branch with proximal diffuse irregular 95% stenosis; LCx with mid diffuse irregular 50% stenosis; OM1 occluded and filling from the SVG graft; RCA large dominant vessel diffusely diseased with proximal to distal 50-75% stenosis and distal 95% stenosis; right PDA with mid 50-75% stenosis; PRO to the LAD patent- small vessel-with minimal luminal irregularities; SVG to the OM system patent with a mid stented segment patent; SVG to RCA patent; mitral valve with mild to moderate MR; aortic root with possible dilatation CT Surgery: 10/20/2009: [facility]: PRO to the LAD, SVG to the OM, and SVG to the right PDA CXR: As noted above Assessment/Plan 1. Atrial fibrillation with rapid ventricular response The patient has had recurrent atrial fibrillation with rapid ventricular response. She has been on antiplatelet therapy and limiting therapy. She has been placed on anticoagulant therapy with anoxic parent/Lovenox. At the present time she is now back in sinus rhythm. Her rate and rhythm will be followed. Consideration will be given to the need for additional medical therapy such as anti-arrhythmic therapy as well as anticoagulant therapy. There have been concerns in the past with respect anticoagulant therapy with her age, somewhat frail status, and multiple medical conditions. 2. CAD status post CABG status post PCI Her initial cardiac enzymes are negative. Her ECG did demonstrate associated ST segment changes as noted above. It is unclear as to whether her symptoms and her associated changes are related to her underlying atrial fibrillation with rapid ventricular response versus her coronary artery disease process being the initiator of her atrial fibrillation rapid ventricular response. At the moment she will continue to be monitored. Her cardiac enzymes and ECG will be followed. It would not be unreasonable to consider a follow-up pharmacologic stress nuclear imaging study to reassess her coronary physiology and ischemic burden. Depending upon her findings she may or may not need repeat diagnostic cardiac catheterization. In the interim she will continue medical management. This will include her antiplatelet therapy, nitrates, beta-blockers, PEACE inhibitors, anticoagulants as deemed appropriate, etc. She has had multiple intolerances to multiple lipid -lowering agents such as statins. 3. Mitral valve disorder She has had a history of an underlying mitral valve disorder with MR. She is undergone recent evaluation as noted above. She will continue to be followed. 4. Aortic valve disorder He does have an underlying aortic valve disorder. This may be contributing to her cardiac murmur. Again she has been reassessed noninvasively. This will continue to be followed. 5. CHF: Chronic diastolic mediated She does have a history of CHF which is thought to be chronic diastolic mediated secondary to her overall preserved LV systolic function. At the moment she is without acute symptoms of CHF. She will continue her combined medical management and follow-up. Her LV systolic function has been reassessed. It has remained preserved. 6. Thoracic aortic aneurysm She does have a history of an underlying dilatation of her thoracic aorta. She was assessed approximately 1 year ago with a chest CT scan. At that time her thoracic aorta, with respect to the ascending portion, appeared to be mildly dilated. This will be followed over time as deemed appropriate. 7. Hyperlipidemia She does have a history of hyperlipidemia. She has been intolerant to statin therapy. 8. Hypertension She will have her blood pressure monitored. She will continue antihypertensive therapy. Comment: The above was discussed and reviewed with the patient, her family members present, and Dr. Sun. This note was generated with [employer] Dictation software. Every effort was made to ensure accuracy, however, computerized director security risk management mistakes may persist.
[2017-05-15] MEDS: Ramipril 10 MG Capsule PO (21:26)
[2017-05-16] VITALS (8 sets, daily range): BP systolic 105–139; BP diastolic 50–77; PULSE 64–82; RESP 16–18; TEMP 36.6–36.9; O2SAT 96–100
[2017-05-16] MEDS: 0.9% Normal Saline 1,000 ML 100 ML IV (01:06)
--- NOTE | 2017-05-16 05:55 | EKG12_ITS ---
Test Reason : AM EKG Blood Pressure : / mmHG Vent. Rate : 070 BPM Atrial Rate : 070 BPM P-R Int : 142 ms QRS Dur : 072 ms QT Int : 408 ms P-R-T Axes : 051 011 034 degrees QTc Int : 440 ms Normal sinus rhythm Normal ECG Confirmed by ABIOLA BOYCE, SAFIA ([id number]), commissioning editor EM LANDA ([id number] on 05/21/2017 3:06:07 PM Referred By: PENELOPE Confirmed By:SAFIA CULVER MD
[2017-05-16] MEDS: Aspirin 81 MG TAB.CHEW PO (06:00)
[2017-05-16] MEDS: Ramipril 10 MG Capsule PO (06:00)
[2017-05-16 06:08] LABS: Absolute Lymphocyte Count 1.77 X10^3/ul (0.83-4.51); Absolute Neutrophil Count 2.1 X10^3/uL (2.0-7.7); Basophil# 0.02 X10^3/uL; Basophil% 0.4 % (0-1); Eosinophil# 0.14 X10^3/uL; Hematocrit 35.4 % (37-47); Hemoglobin 11.5 g/dl (12.0-15.0); Lymphocyte # 1.77 X10^3/ul (4.0); Lymphocyte % 38.5 % (19-41); Mean Corp Hgb Conc 32.5 g/gl (32-36); Mean Corpuscular Hgb 30.8 pg (27.0-32.0); Mean Corpuscular Volume 94.9 fL (81-99); Mean Platelet Vol. 9.6 fl (6.2-12.0); Monocyte# 0.52 X10^3/uL; Monocyte% 11.3 % (0-10); Neutrophil # 2.14 X10^3/uL (2.7-7.7); Neutrophil % 46.6 % (47-70); Platelet Count 210 K/mm3 (150-450); RBC Distribution Width CV 14.4 % (11.6-14.6); RBC Distribution Width SD 49.2 fl (35.1-43.9); Red Blood Count 3.73 M/mm3 (4.2-5.4); White Blood Count 4.6 K/mm3 (4.4-11.0)
[2017-05-16 06:10] LABS: POSITIVE COUNT NO; POSITIVE DIFFERENTIAL NO; POSITIVE MORPHOLOGY NO
[2017-05-16 06:13] LABS: International Normalized Ratio 1.2; Prothrombin Time (Protime)PT. 14.5 SECONDS (11.7-14.9)
[2017-05-16 06:41] LABS: Anion Gap 8 (5-15); BUN 18 mg/dL (7-18); BUN/Creat Ratio 24.1 RATIO (10-20); Calcium,Total 8.4 mg/dL (8.5-10.1); Chloride 110 mmol/L (98-107); Cholesterol 165 mg/dL (200); Creatinine, Serum 0.75 mg/dL (0.55-1.02); EST Glomerular Filtration Rate 79 mL/min (>60); Est Glom Filt Rate - Afr Amer 95 mL/min (>60); Estimated Creatinine Clearance 33.28 ml/min; Glucose 87 mg/dL (70-110); High Density Lipoprotein 49 mg/dL; Potassium 5.2 mmol/L (3.5-5.1); Sodium Level 140 mmol/L (136-145); Thyroid Stim Hormone (TSH) 1.99 uIU/mL (0.358-3.74); Triglycerides 96 mg/dL; Very Low Density Lipoprotein 19 mg/dL (5-40)
[2017-05-16] MEDS: Pantoprazole Sodium 40 MG Tablet PO (09:21)
[2017-05-16] MEDS: Isosorbide Mononitrate 60 MG Tablet PO (09:22)
[2017-05-16] MEDS: Metoprolol(XL)Succ 50 MG Tablet PO (09:24)
--- NOTE | 2017-05-16 13:07 | CASEMGMT ---
Face to Face with patient for initial transition planning/care coordination assessment. FAMILIA TINSLEY introduced self and role at [facility], pt voices understanding and consents to assessment at this time. Pt sitting up in bed in no distress at this time. Pt A/O x4 at this time and answers all questions appropriately at this time. Care providers, pharmacy, and demographics verified. See attached link. Pt voices no further concerns/needs at this time. Advised pt to ask for CM if any further questions/concerns/needs arise, voices understanding. PLAN: [place] FAMILIA TINSLEY
--- NOTE | 2017-05-16 14:49 | PCM.DC ---
- Discharge Diagnoses Current Active Problems: Current Active and Chronic Problems Atrial fibrillation with RVR (Acute) Atypical chest pain (Acute) Atrial fibrillation (Acute) Diastolic CHF, chronic (Chronic) Thoracic aortic aneurysm (Chronic) You will use the following diet at home:: Cardiac Discharge Activity: Return to Normal Activity Call your doctor if you observe: Fever of 101 or Higher, Shortness of breath, Dizziness, Fainting spells, Chest pain, Increased palpitations (irregular heartbeat) Allergies/Adverse Reactions: Allergies alendronate sodium [From Fosamax] Allergy (Verified 05/15/17 12:44) Unknown atorvastatin calcium [From Lipitor] Allergy (Verified 05/15/17 12:44) Unknown colestipol HCl [From Colestid] Allergy (Verified 05/15/17 12:44) Unknown cortisone acetate [From Cortone] Allergy (Verified 05/15/17 12:44) Unknown ezetimibe [From Zetia] Allergy (Verified 05/15/17 12:44) Unknown gabapentin Allergy (Verified 05/15/17 12:44) Unknown goserelin acetate [From Zoladex] Allergy (Verified 05/15/17 12:44) Unknown nabumetone Allergy (Verified 05/15/17 12:44) Other paroxetine HCl [From Paxil] Allergy (Verified 05/15/17 12:44) Unknown rosuvastatin calcium [From Crestor] Allergy (Verified 05/15/17 12:44) Unknown sertraline HCl [From Zoloft] Allergy (Verified 05/15/17 12:44) Unknown venlafaxine HCl [From Effexor] Allergy (Verified 05/15/17 12:44) Unknown acetaminophen [From Vicodin] Adverse Reaction (Verified 05/15/17 12:44) KEEPS ME AWAKE carvedilol Adverse Reaction (Verified 05/15/17 12:44) Unknown hydrocodone bitartrate [From Vicodin] Adverse Reaction (Verified 05/15/17 12:44) KEEPS ME AWAKE Medications to take at Discharge Aspirin [Aspirin, Baby] 81 mg PO DAILY@0800 03/28/15 Calcium Carbonate [Calcium] 600 mg PO DAILY 03/28/15 Isosorbide Mononitrate [Imdur] 60 mg PO DAILY 03/28/15 Lorazepam [Ativan] 0.5 mg PO DAILY PRN 03/28/15 Nitroglycerin [Nitrostat] 0.4 mg SUBLINGUAL Q5M PRN 03/28/15 [place]-3 Fatty Acids [Fish Oil] 1,000 mg PO DAILY 03/28/15 Ramipril [Altace] 10 mg PO BID #60 capsule 03/29/15 Omeprazole [Prilosec] 40 mg PO DAILY 05/16/16 Amiodarone HCl 200 mg PO DAILY #30 tab 05/16/17 Apixaban [Eliquis] 2.5 mg PO BID #60 tab 05/16/17 Metoprolol(XL)Succ [Toprol Xl (Beta Jt)] 50 mg PO DAILY tablet 05/16/17 The following prescriptions were given: Amiodarone HCl 200 mg PO DAILY #30 tab Apixaban [Eliquis] 2.5 mg PO BID #60 tab Primary Care Physician: Rachel Bernabe DO [Primary Care Provider] - Please follow up with your Primary Care Physician in: 1-2 Weeks Please Follow Up With: Shawn Wilkinson MD When: As scheduled, 05/26/17 Proposed Discharge Date: 05/16/17
--- NOTE | 2017-05-16 14:52 | PCM.DC.SUM ---
<Valerie Hsu - Last Filed: 05/16/17 15:07> Discharge Date and Diagnosis Date of Admission: 05/15/17 Date of Discharge: 05/16/17 - Primary Discharge Diagnosis Active and Suspected Problems Atrial fibrillation with RVR (Acute) Atypical chest pain- ACS ruled out - Secondary Discharge Diagnosis Chronic Problems History of aortic valve disorder (Chronic) Benign essential hypertension (Chronic) Coronary atherosclerosis of [place] coronary artery (Chronic) status post CABG and stent. Hx of CABG (Chronic) HLD (hyperlipidemia) (Chronic) Osteoarthritis (Chronic) Coronary artery disease (Chronic) Mild mitral regurgitation by prior echocardiogram (Chronic) Biatrial enlargement (Chronic) S/P CABG x 3 (Chronic) S/P PTCA (percutaneous transluminal coronary angioplasty) (Chronic) PVD (peripheral vascular disease) (Chronic) Mitral valve regurgitation (Chronic) Aortic valve disorder (Chronic) HTN (hypertension) (Chronic) History of coronary artery disease (Chronic) Diastolic CHF, chronic (Chronic) Thoracic aortic aneurysm (Chronic) Hospital Course and Treatment Imaging Results: Diagnostic Data Chest X-Ray 05/15/17 12:05 IMPRESSION: Hyperinflation. Mild increased markings at the left lung base suggestive of scarring. Electronically Signed: Mariusz Alarcon MD at 12:33 EST Tel [phone], Service support , Dr. Wilkinson- Cardiology Operations: None Procedures: 2-D Echocardiogram, Stress test Summary of Care Provided: The patient is a 81 year old F admitted 05/15/17 due to chest pain and palpitations. She has a past medical history of coronary artery disease status post three-vessel CABG and PTCA, hypertension, chronic diastolic CHF, paroxysmal atrial fibrillation, PVD, osteoarthritis, aortic valve disorder, mitral regurgitation, hyperlipidemia. Acute coronary syndrome ruled out. Troponin negative ?4. Nuclear stress test negative for ischemia. Echocardiogram shows an estimated ejection fraction of 65%, stage III diastolic dysfunction, mild tricuspid valve insufficiency. Patient was noted to be in atrial fibrillation with RVR and converted to sinus rhythm with Cardizem drip. She will be discharged on amiodarone 200 mg daily. She is reported to have been on amiodarone in the past and did not tolerate well. Patient states she is unsure of symptoms she had. She is willing to try a amiodarone again. She has a follow-up with Dr. Wilkinson the near future on 05/26/2017. She will also be discharged on anticoagulation therapy with Eliquis 2.5 mg twice daily. She will continue aspirin, beta-jt, nitrate, PEACE inhibitor. She has a reported intolerance to statins. Patient is in sinus rhythm at discharge. She denies further chest pain, palpitations. Denies dizziness, shortness of breath. Chest x-ray shows hyperinflation, mild increased markings at the left lung base suggestive of scarring. Vitals stable. Patient seen and examined prior to discharge. Heart rate regular rate and rhythm. Lungs clear. Abdomen soft, nontender. Neuro grossly intact. Patient is stable for discharge home with further follow-up with primary care physician and cardiology. This patient was seen by SONU Vera under the supervision of Dr. Breaux. Discharge Diet: Low fat/ Low Cholesterol Discharge Activity: Return to Normal Activity Call your doctor if you observe: Fever of 101 or Higher, Shortness of breath, Dizziness, Fainting spells, Chest pain, Increased palpitations (irregular heartbeat) Home Medications: Medications to take at Discharge Aspirin [Aspirin, Baby] 81 mg PO DAILY@0800 03/28/15 Calcium Carbonate [Calcium] 600 mg PO DAILY 03/28/15 Isosorbide Mononitrate [Imdur] 60 mg PO DAILY 03/28/15 Lorazepam [Ativan] 0.5 mg PO DAILY PRN 03/28/15 Nitroglycerin [Nitrostat] 0.4 mg SUBLINGUAL Q5M PRN 03/28/15 [place]-3 Fatty Acids [Fish Oil] 1,000 mg PO DAILY 03/28/15 Ramipril [Altace] 10 mg PO BID #60 capsule 03/29/15 Omeprazole [Prilosec] 40 mg PO DAILY 05/16/16 Amiodarone HCl 200 mg PO DAILY #30 tab 05/16/17 Apixaban [Eliquis] 2.5 mg PO BID #60 tab 05/16/17 Metoprolol(XL)Succ [Toprol Xl (Beta Jt)] 50 mg PO DAILY tablet 05/16/17 Following Prescrptions Were Given to Patient: Amiodarone HCl 200 mg PO DAILY #30 tab Apixaban [Eliquis] 2.5 mg PO BID #60 tab Primary Care Physician: Rachel Bernabe DO [Primary Care Provider] - Please follow up with your Primary Care Physician in: 1-2 Weeks Please Follow Up With: Shawn Wilkinson MD When: As scheduled, 05/26/17 Disposition: Home Minutes spent on discharge:: 35 Patient Condition:: Stable Meaningful Use Info Meaningful Use Diagnoses (Choose all that apply): None applicable <[email or web address] - Last Filed: 05/16/17 16:26> Discharge Date and Diagnosis - Secondary Discharge Diagnosis Chronic Problems History of aortic valve disorder (Chronic) Benign essential hypertension (Chronic) Coronary atherosclerosis of [place] coronary artery (Chronic) status post CABG and stent. Hx of CABG (Chronic) HLD (hyperlipidemia) (Chronic) Osteoarthritis (Chronic) Coronary artery disease (Chronic) Mild mitral regurgitation by prior echocardiogram (Chronic) Biatrial enlargement (Chronic) S/P CABG x 3 (Chronic) S/P PTCA (percutaneous transluminal coronary angioplasty) (Chronic) PVD (peripheral vascular disease) (Chronic) Mitral valve regurgitation (Chronic) Aortic valve disorder (Chronic) HTN (hypertension) (Chronic) History of coronary artery disease (Chronic) Diastolic CHF, chronic (Chronic) Thoracic aortic aneurysm (Chronic) Hospital Course and Treatment Summary of Care Provided: The patient is a 81 year old F full cardiac comorbidities who presented with chest pain and palpitations. Patient was noted to be in A. fib with RVR converted to sinus rhythm while is on Cardizem drip. She also had serial cardiac markers ordered all of which came back negative for PA. Subsequently underwent a nuclear stress test which is negative for stress-induced ischemia discharge to after her negative workup. Patient was also seen in consultation by Dr. Wilkinson with cardiology Hospital course as elicited above by Valerie CHOWDARY Total time spent on discharge :35 minutes Code Visit OBSV E&M: [id number] Observation care discharge
--- NOTE | 2017-05-16 14:55 | STRESSREP ---
Stress Test Report Pharmacologic myocardial perfusion stress test 81-year-old lady with a history of chest pain. Stress protocol: Resting EKG demonstrates normal sinus rhythm with rate of 73 bpm. Normal intervals are noted. Resting blood pressure is 174/82 mmHg. 0.4 mg regadenoson was infused per usual protocol followed by Intravenous saline flush injection. Continuous EKG monitoring was performed. The maximum heart rate attained was 104 bpm which was 74% of the maximum predicted heart rate. The maximum workload attained was 1 metabolic equivalent. At rest and at peak infusion there were no ST or T-wave changes noted to suggest abnormal flow reserve. No clinical angina was noted. The resting blood pressure is 174/82 with a final blood pressure of 140/70 mmHg. Myocardial perfusion protocol: 11.1 mCi of technetium 99m sestamibi was injected at rest. 0.4 mg of regadenoson was infused per usual protocol. At peak infusion 32.9 mCi of technetium 99m sestamibi was injected. Stress images were obtained. Stress and rest images were reconstructed and compared in the short axis vertical long and horizontal long axis. Gated images were also obtained. Perfusion SPECT analysis: Review of the stress images demonstrate normal uptake of tracer noted in all areas of the myocardium the resting images similarly demonstrated normal uptake of tracer noted in all areas of the myocardium. No areas of reversibility were noted suggest ischemia no previous infarct was noted. Gated SPECT analysis: Ejection fraction is noted to be 82%. Conclusion: Normal pharmacologic myocardial perfusion stress test. Preserved ejection fraction.
--- NOTE | 2017-05-16 15:07 | DS.PCM_ITS ---
<Valerie Hsu - Last Filed: 05/16/17 15:07> Discharge Date and Diagnosis Date of Admission: 05/15/17 Date of Discharge: 05/16/17 - Primary Discharge Diagnosis Active and Suspected Problems Atrial fibrillation with RVR (Acute) Atypical chest pain- ACS ruled out - Secondary Discharge Diagnosis Chronic Problems History of aortic valve disorder (Chronic) Benign essential hypertension (Chronic) Coronary atherosclerosis of [place] coronary artery (Chronic) status post CABG and stent. Hx of CABG (Chronic) HLD (hyperlipidemia) (Chronic) Osteoarthritis (Chronic) Coronary artery disease (Chronic) Mild mitral regurgitation by prior echocardiogram (Chronic) Biatrial enlargement (Chronic) S/P CABG x 3 (Chronic) S/P PTCA (percutaneous transluminal coronary angioplasty) (Chronic) PVD (peripheral vascular disease) (Chronic) Mitral valve regurgitation (Chronic) Aortic valve disorder (Chronic) HTN (hypertension) (Chronic) History of coronary artery disease (Chronic) Diastolic CHF, chronic (Chronic) Thoracic aortic aneurysm (Chronic) Hospital Course and Treatment Imaging Results: Diagnostic Data Chest X-Ray 05/15/17 12:05 IMPRESSION: Hyperinflation. Mild increased markings at the left lung base suggestive of scarring. Electronically Signed: Mariusz Alarcon MD at 12:33 EST Tel [phone], Service support , Dr. Wilkinson- Cardiology Operations: None Procedures: 2-D Echocardiogram, Stress test Summary of Care Provided: The patient is a 81 year old F admitted 05/15/17 due to chest pain and palpitations. She has a past medical history of coronary artery disease status post three-vessel CABG and PTCA, hypertension, chronic diastolic CHF, paroxysmal atrial fibrillation, PVD, osteoarthritis, aortic valve disorder, mitral regurgitation, hyperlipidemia. Acute coronary syndrome ruled out. Troponin negative ?4. Nuclear stress test negative for ischemia. Echocardiogram shows an estimated ejection fraction of 65%, stage III diastolic dysfunction, mild tricuspid valve insufficiency. Patient was noted to be in atrial fibrillation with RVR and converted to sinus rhythm with Cardizem drip. She will be discharged on amiodarone 200 mg daily. She is reported to have been on amiodarone in the past and did not tolerate well. Patient states she is unsure of symptoms she had. She is willing to try a amiodarone again. She has a follow-up with Dr. Wilkinson the near future on . She will also be discharged on anticoagulation therapy with Eliquis 2.5 mg twice daily. She will continue aspirin, beta-jt, nitrate, PEACE inhibitor. She has a reported intolerance to statins. Patient is in sinus rhythm at discharge. She denies further chest pain, palpitations. Denies dizziness, shortness of breath. Chest x-ray shows hyperinflation, mild increased markings at the left lung base suggestive of scarring. Vitals stable. Patient seen and examined prior to discharge. Heart rate regular rate and rhythm. Lungs clear. Abdomen soft, nontender. Neuro grossly intact. Patient is stable for discharge home with further follow-up with primary care physician and cardiology. This patient was seen by SONU Vera under the supervision of Dr. Breaux. Discharge Diet: Low fat/ Low Cholesterol Discharge Activity: Return to Normal Activity Call your doctor if you observe: Fever of 101 or Higher, Shortness of breath, Dizziness, Fainting spells, Chest pain, Increased palpitations (irregular heartbeat) Home Medications: Medications to take at Discharge Aspirin [Aspirin, Baby] 81 mg PO DAILY@0800 03/28/15 Calcium Carbonate [Calcium] 600 mg PO DAILY 03/28/15 Isosorbide Mononitrate [Imdur] 60 mg PO DAILY 03/28/15 Lorazepam [Ativan] 0.5 mg PO DAILY PRN 03/28/15 Nitroglycerin [Nitrostat] 0.4 mg SUBLINGUAL Q5M PRN 03/28/15 [place]-3 Fatty Acids [Fish Oil] 1,000 mg PO DAILY 03/28/15 Ramipril [Altace] 10 mg PO BID #60 capsule 03/29/15 Omeprazole [Prilosec] 40 mg PO DAILY 05/16/16 Amiodarone HCl 200 mg PO DAILY #30 tab 05/16/17 Apixaban [Eliquis] 2.5 mg PO BID #60 tab 05/16/17 Metoprolol(XL)Succ [Toprol Xl (Beta Jt)] 50 mg PO DAILY tablet 05/16/17 Following Prescrptions Were Given to Patient: Amiodarone HCl 200 mg PO DAILY #30 tab Apixaban [Eliquis] 2.5 mg PO BID #60 tab Primary Care Physician: Rachel Bernabe DO [Primary Care Provider] - Please follow up with your Primary Care Physician in: 1-2 Weeks Please Follow Up With: Shawn Wilkinson MD When: As scheduled, 05/26/17 Disposition: Home Minutes spent on discharge:: 35 Patient Condition:: Stable Meaningful Use Info Meaningful Use Diagnoses (Choose all that apply): None applicable <KennedichachaChristian - Last Filed: 05/16/17 16:26> Discharge Date and Diagnosis - Secondary Discharge Diagnosis Chronic Problems History of aortic valve disorder (Chronic) Benign essential hypertension (Chronic) Coronary atherosclerosis of [place] coronary artery (Chronic) status post CABG and stent. Hx of CABG (Chronic) HLD (hyperlipidemia) (Chronic) Osteoarthritis (Chronic) Coronary artery disease (Chronic) Mild mitral regurgitation by prior echocardiogram (Chronic) Biatrial enlargement (Chronic) S/P CABG x 3 (Chronic) S/P PTCA (percutaneous transluminal coronary angioplasty) (Chronic) PVD (peripheral vascular disease) (Chronic) Mitral valve regurgitation (Chronic) Aortic valve disorder (Chronic) HTN (hypertension) (Chronic) History of coronary artery disease (Chronic) Diastolic CHF, chronic (Chronic) Thoracic aortic aneurysm (Chronic) Hospital Course and Treatment Summary of Care Provided: The patient is a 81 year old F full cardiac comorbidities who presented with chest pain and palpitations. Patient was noted to be in A. fib with RVR converted to sinus rhythm while is on Cardizem drip. She also had serial cardiac markers ordered all of which came back negative for MD. Subsequently underwent a nuclear stress test which is negative for stress-induced ischemia discharge to after her negative workup. Patient was also seen in consultation by Dr. Wilkinson with cardiology Hospital course as elicited above by Valerie CHOWDARY Total time spent on discharge :35 minutes Code Visit OBSV E&M: [id number] Observation care discharge
--- NOTE | 2017-05-16 15:36 | CASEMGMT ---
Per Rehana SUPPLIER QUALITY ENGINEER, pt to be discharge on Eliquis. Script e-scribed to [facility] at this time. Call placed to [facility] and per Nick, pt's co-pay is $25.00. Pt updated at this time and voices understanding. Kali BARBOSA CM
== END 2017-05-16 14:49 | disposition home or self-care (01) ==
LOC: ED 12:51 → PCU 16:23
PROVIDERS: Internal Medicine Cardiovascular Disease; Admitting Provider Internal Medicine; Emergency Provider Emergency Medicine; Family Provider Family Medicine; PCP Family Medicine; Visit Provider Internal Medicine
DX: I48.0 Paroxysmal atrial fibrillation (principal); R07.89 Other chest pain; I11.0 Hypertensive heart disease with heart failure; I50.33 Acute on chronic diastolic (congestive) heart failure; I25.10 Atherosclerotic heart disease of native coronary artery without angina pectoris; I08.3 Combined rheumatic disorders of mitral, aortic and tricuspid valves; E78.5 Hyperlipidemia, unspecified; M19.90 Unspecified osteoarthritis, unspecified site; I73.9 Peripheral vascular disease, unspecified; I48.92 Unspecified atrial flutter; K21.9 Gastro-esophageal reflux disease without esophagitis; D63.8 Anemia in other chronic diseases classified elsewhere; Z95.1 Presence of aortocoronary bypass graft; Z79.899 Other long term (current) drug therapy; Z79.82 Long term (current) use of aspirin; Z66 Do not resuscitate
CPT/HCPCS: 36415; 71045; 78452; 80048; 80061; 80076; 83880; 84443; 84484; 85025; 85610; 93005; 93017; 93306; 96361; 96365; 96372; 96375; 96376; 99218; 99285; A9500; J7030; J7050; A4216; G0378; J2405; J2785

== ENCOUNTER 2017-05-20 12:05 | Observation (INO) | payer MEDICARE, SELFPAY ==
[2017-05-15 14:37] VITALS: BMI 19.5
[2017-05-16 11:27] VITALS: BP 119/50
[2017-05-20] VITALS (10 sets, daily range): BP systolic 144–196; BP diastolic 68–85; PULSE 61–77; RESP 12–16; TEMP 36.6–36.8; O2SAT 95–100; BMI 20.8; BMI 20.1
--- NOTE | 2017-05-20 12:19 | CT_ITS ---
STUDY: CT BRAIN WITHOUT CONTRAST REASON FOR EXAM: Female, 81 years old. Dizziness. Hypertension. RADIATION DOSAGE (If Supplied By Facility): CTDIvol = ( 44.99 ) mGy, DLP = ( 711.75 ) mGycm TECHNIQUE: Transaxial CT imaging of the brain was performed without administration of intravenous contrast material. Individualized dose optimization techniques were used for this CT. COMPARISON: None. FINDINGS: Normal soft tissue structures. Normal calvarium. There is mild cerebral atrophy with widening of the extra-axial spaces and ventricular dilatation. There are areas of decreased attenuation within the white matter tracts of the supratentorial brain, consistent with microvascular disease changes. Focal encephalomalacia in the right parietal lobe suggestive of old ischemic change. Normal basal ganglia and thalami. Normal brainstem. Normal cerebellum. There is no intracranial hemorrhage. There are no findings of an acute ischemic infarction. Atherosclerotic calcification of the cavernous portions of the internal carotid arteries and vertebral arteries. Normal visualized paranasal sinuses. CT/Brain/Head without Contrast IMPRESSION: Chronic involutional changes of the brain. Electronically Signed: Mariusz Alarcon MD at 13:24 EST Tel [phone], Service support ,
--- NOTE | 2017-05-20 12:19 | EKG12_ITS ---
Test Reason : CP Blood Pressure : / mmHG Vent. Rate : 070 BPM Atrial Rate : 070 BPM P-R Int : 146 ms QRS Dur : 078 ms QT Int : 436 ms P-R-T Axes : 040 017 036 degrees QTc Int : 470 ms Normal sinus rhythm Consider LVH Nonspecific ST abnormality Poor R wave progression Abnormal ECG Confirmed by ABIOLA BOYCE, SAFIA ([id number]), editor publications EM LANDA ([id number]) on 05/23/2017 1:38:07 PM Referred By: HIEN Confirmed By:SAFIA CULVER MD
--- NOTE | 2017-05-20 12:19 | RAD_ITS ---
STUDY: X-RAY CHEST REASON FOR EXAM: Female, 81 years old. Palpitations. Dyspnea. TECHNIQUE: Single AP portable view of the chest. COMPARISON: Comparison is made with prior study dated May 15, 2017. FINDINGS: EKG electrodes are seen. The lungs are clear and expanded. There is no demonstrated pleural abnormality. Sternal cerclage wires and vascular clips are present from a prior sternotomy and coronary artery bypass graft procedure (CABG). Borderline cardiomegaly. Normal mediastinum and alexus. Normal visualized pulmonary arteries. There is atherosclerotic calcification of the aortic arch with tortuosity. Normal visualized thoracic spine. The patient is status post right reverse shoulder replacement. Osteoarthritis of the left shoulder joint. There is no demonstrated abnormality of the visualized soft tissue structures of the upper abdomen. RAD/Chest 1 View (Portable) IMPRESSION: No acute abnormality is seen. Electronically Signed: Mariusz Alarcon MD at 13:22 EST Tel [phone], Service support ,
[2017-05-20 12:36] LABS: Absolute Lymphocyte Count 1.65 X10^3/ul (0.83-4.51); Basophil# 0.01 X10^3/uL; Basophil% 0.2 % (0-1); Eosinophil# 0.12 X10^3/uL; Eosinophils% 2.2 % (0-5); Hematocrit 35.7 % (37-47); Hemoglobin 11.8 g/dl (12.0-15.0); Lymphocyte # 1.65 X10^3/ul (4.0); Lymphocyte % 30.7 % (19-41); Mean Corp Hgb Conc 33.1 g/gl (32-36); Mean Corpuscular Hgb 30.4 pg (27.0-32.0); Mean Platelet Vol. 8.9 fl (6.2-12.0); Monocyte# 0.57 X10^3/uL; Monocyte% 10.6 % (0-10); Neutrophil # 3.01 X10^3/uL (2.7-7.7); Neutrophil % 56.1 % (47-70); Platelet Count 235 K/mm3 (150-450); Red Blood Count 3.88 M/mm3 (4.2-5.4); White Blood Count 5.4 K/mm3 (4.4-11.0)
[2017-05-20 12:37] LABS: POSITIVE COUNT NO; POSITIVE DIFFERENTIAL NO; POSITIVE MORPHOLOGY NO
[2017-05-20] MEDS: 0.9% Normal Saline 1,000 ML 150 ML IV (12:50)
[2017-05-20 13:00] LABS: Anion Gap 7 (5-15); BUN 15 mg/dL (7-18); BUN/Creat Ratio 18.6 RATIO (10-20); Chloride 101 mmol/L (98-107); Creatinine, Serum 0.81 mg/dL (0.55-1.02); EST Glomerular Filtration Rate 72 mL/min (>60); Est Glom Filt Rate - Afr Amer 87 mL/min (>60); Estimated Creatinine Clearance 42.35 ml/min; Glucose 105 mg/dL (74-106); Potassium 3.9 mmol/L (3.5-5.1); Sodium Level 135 mmol/L (136-145)
[2017-05-20 13:35] LABS: Bacteria 0 SEEN /hpf (None Seen); Color, Urine Yellow (Yellow); Glucose, Dipstick Normal (Normal); Ketone-Dipstick Negative (Negative); Leukocyte Esterase-Dipstick 25 /ul (Negative); Mucous, Urine 0 SEEN /hpf (<or=2+); Nitrite-Dipstick Negative (Negative); Occult Blood-Urine 50 /ul (Negative); Protein-Dipstick Negative (Negative); Urine Bilirubin Dipstick Negative (Negative); Urine Clarity Clear (Clear); Urine Urobilinogen Normal (Normal); White Blood Cells 0 SEEN /hpf (0-5)
[2017-05-20 13:41] LABS: Red Blood Cells-Urine 0-5 SEEN /hpf (0-5); Squamous Epithelial Cells - UA 0-5 SEEN /hpf (5-10)
--- NOTE | 2017-05-20 15:06 | ED.DCSUM_ITS ---
- ER Visit Summary Date of Service: 05/20/17 Chief Complaint: [Chest pain and high blood pressure] History of Present Illness: The patient is a 81 F [presents the emergency department with above complaints that started this morning. Patient states that she was just started on a couple new medicines 4 days ago after being admitted to this hospital for atrial fibrillation with rapid ventricular response. Patient states that she had a stress test and echocardiogram while she was in here. Patient this morning felt like her heart was racing and skipping beats. Patient states that her blood pressure was elevated with systolic in the 190s. Patient denies any recent illness. She describes the discomfort in her chest as a tightness.] Physical Examination: [HEENT-PERRLA, EOMI. Cranial nerves II through XII grossly intact. TMs clear. Mucous membranes moist. No adenopathy. Cardiovascular-regular rate and rhythm without murmur or ectopy Lungs-clear to auscultation, chest wall stable without crepitus or subcu emphysema Abdomen-normoactive bowel sounds, soft, nontender, no rebound or rigidity, no peritoneal signs. Extremities-intact ?4, normal range of motion, normal pulses, atraumatic] Test Results: [EKG obtained showed a sinus rhythm with a ventricular rate of 70 bpm with some nonspecific ST changes. When compared with prior EKG no new changes noted. CBC with differential obtained showed white blood cell count of 5.4, hemoglobin 11.8, hematocrit 36, platelets 235. Chemistries were normal. Urinalysis was normal. Troponin is less than 0.02. Chest x-ray showed nothing acute. CT scan of the brain without contrast showed chronic changes.] Emergency Department Course and Treatment: [] Treatment Plan: [Patient case was discussed with Dr. Shawn Wilkinson who asked that we admit patient and discontinue her Eliquis and then plan will be to perform heart catheterization within next 3 days given her ongoing chest pain and recent stress testing.] Disposition: Admit [] Impression: [Chest pain Hypertension] This note was generated with [employer] dictation software. It may contain incorrect words, spelling, and punctuation that were not noted in review of the chart prior to signing ED Disposition - Plan for ED Patient: Chief Complaint: Hypertension Referrals: Rachel Bernabe DO [Primary Care Provider] -
--- NOTE | 2017-05-20 16:09 | PCM.HP.STD ---
Problem List (1) Atherosclerosis of coronary artery bypass graft without angina pectoris Status: Chronic Comment: PRO to LAD< SVG to distal L CFX, SVG to RCA 2009 (2) History of percutaneous transluminal coronary angioplasty Status: Chronic Comment: PTCA/stent to SVG of OM2 11/13/2011, 03/25/12 (3) Aortic insufficiency Status: Chronic Comment: Mild (4) Ascending aortic aneurysm Status: Chronic Comment: Aortic Root (5) Family history of premature coronary heart disease Status: Chronic Comment: Male < 55 (6) Chronic insomnia Status: Chronic (7) Carotid bruit Status: Chronic Comment: Left (8) Benign essential hypertension Status: Chronic (9) Coronary atherosclerosis of [place] coronary artery Status: Chronic Comment: status post CABG and stent. (10) HLD (hyperlipidemia) Status: Chronic Qualifiers: (11) Osteoarthritis Status: Chronic (12) Biatrial enlargement Status: Chronic (13) Atrial fibrillation Status: Chronic Qualifiers: Atrial fibrillation type: paroxysmal Qualified Code(s): I48.0 - Paroxysmal atrial fibrillation (14) S/P CABG x 3 Status: Chronic Comment: PRO to LAD, SVG to distal L CFX, SVG to RCA 2009 (15) S/P PTCA (percutaneous transluminal coronary angioplasty) Status: Chronic (16) PVD (peripheral vascular disease) Status: Chronic (17) Mitral valve regurgitation Status: Chronic Qualifiers: (18) Aortic valve disorder Status: Chronic (19) Anemia Status: Chronic (20) Diastolic CHF, chronic Status: Chronic (21) Thoracic aortic aneurysm Status: Chronic History of Present Illness Date of Admission: 05/20/17 Chief Complaint: Chest pain, palpitations. The patient is a 81 year old F who presents to the emergency room with chest pain and palpitations. She was recently discharged from PCU 05/16/17 for similar presenting symptoms. Patient underwent nuclear stress test during admission which was negative for ischemia. Her cardiac enzymes were negative. She had an echocardiogram which showed an estimated ejection fraction of 65%, stage III diastolic dysfunction, mild tricuspid valve insufficiency. Patient was also noted to be in atrial fibrillation with RVR during recent admission in which she was converted to sinus rhythm with a Cardizem drip. She was discharged on amiodarone 200 mg daily and Eliquis. She was to follow-up in the near future with Dr. Wilkinson. Patient states this morning she began to have chest pain again which is a fairly constant pressure and occurs even while at rest. Patient states she did not have any nitro at home and did not take any medication to try to relieve the pain. Patient states she took her blood pressure at home during episode of chest pain and blood pressure was over 200 systolically. She complained of associated pain down her left arm and left shoulder. Describes associated dizziness. Patient states since she began taking amiodarone that she has felt slightly unsteady on her feet. She also describes associated heart fluttering. She states when she checked her blood pressure, her heart rate was normal per her machine. Patient states she is concerned she has a blockage in her heart. She states she had previous symptoms when she had CABG in the past. Her other past medical history includes coronary artery disease status post three-vessel CABG and PTCA, hypertension, chronic diastolic CHF, paroxysmal atrial fibrillation, PVD, osteoarthritis, aortic valve disorder, mitral regurgitation, hyperlipidemia. Past Medical History Past Medical History (Chronic Problems): Chronic Problems (Last Updated 05/20/17 @ 08:38 by Emperatriz Cazares) Atherosclerosis of coronary artery bypass graft without angina pectoris (Chronic) PRO to LAD< SVG to distal L CFX, SVG to RCA 2009 History of percutaneous transluminal coronary angioplasty (Chronic) PTCA/stent to SVG of OM2 11/13/2011, 03/25/12 Aortic insufficiency (Chronic) Mild Ascending aortic aneurysm (Chronic) Aortic Root Family history of premature coronary heart disease (Chronic) Male < 55 Chronic insomnia (Chronic) Carotid bruit (Chronic) Left Benign essential hypertension (Chronic) Coronary atherosclerosis of [place] coronary artery (Chronic) status post CABG and stent. HLD (hyperlipidemia) (Chronic) Osteoarthritis (Chronic) Biatrial enlargement (Chronic) Atrial fibrillation (Chronic) S/P CABG x 3 (Chronic) PRO to LAD, SVG to distal L CFX, SVG to RCA 2009 S/P PTCA (percutaneous transluminal coronary angioplasty) (Chronic) PVD (peripheral vascular disease) (Chronic) Mitral valve regurgitation (Chronic) Aortic valve disorder (Chronic) Anemia (Chronic) Diastolic CHF, chronic (Chronic) Thoracic aortic aneurysm (Chronic) Allergies alendronate sodium [From Fosamax] Allergy (Verified 05/15/17 12:44) Unknown atorvastatin calcium [From Lipitor] Allergy (Verified 05/15/17 12:44) Unknown colestipol HCl [From Colestid] Allergy (Verified 05/15/17 12:44) Unknown cortisone acetate [From Cortone] Allergy (Verified 05/15/17 12:44) Unknown ezetimibe [From Zetia] Allergy (Verified 05/15/17 12:44) Unknown gabapentin Allergy (Verified 05/15/17 12:44) Unknown goserelin acetate [From Zoladex] Allergy (Verified 05/15/17 12:44) Unknown nabumetone Allergy (Verified 05/15/17 12:44) Other paroxetine HCl [From Paxil] Allergy (Verified 05/15/17 12:44) Unknown rosuvastatin calcium [From Crestor] Allergy (Verified 05/15/17 12:44) Unknown sertraline HCl [From Zoloft] Allergy (Verified 05/15/17 12:44) Unknown venlafaxine HCl [From Effexor] Allergy (Verified 05/15/17 12:44) Unknown acetaminophen [From Vicodin] Adverse Reaction (Verified 05/15/17 12:44) KEEPS ME AWAKE carvedilol Adverse Reaction (Verified 05/15/17 12:44) Unknown hydrocodone bitartrate [From Vicodin] Adverse Reaction (Verified 05/15/17 12:44) KEEPS ME AWAKE Home Medications: Ambulatory Orders Medication Instructions Recorded Aspirin [Aspirin, Baby] 81 mg PO DAILY@0800 03/28/15 Calcium Carbonate [Calcium] 600 mg PO DAILY 03/28/15 Isosorbide Mononitrate [Imdur] 60 mg PO DAILY 03/28/15 Lorazepam [Ativan] 0.5 mg PO DAILY PRN 03/28/15 Nitroglycerin [Nitrostat] 0.4 mg SUBLINGUAL Q5M PRN 03/28/15 [place]-3 Fatty Acids [Fish Oil] 1,000 mg PO DAILY 03/28/15 Ramipril [Altace] 10 mg PO BID #60 cap 03/29/15 Omeprazole [Prilosec] 40 mg PO DAILY 05/16/16 Amiodarone HCl 200 mg PO DAILY 05/20/17 Apixaban [Eliquis] 2.5 mg PO BID 05/20/17 Metoprolol(XL)Succ [Toprol Xl 50 mg PO DAILY 05/20/17 (Beta Danica)] Surgical History: angioplasty, coronary bypass surgery - Coronary artery bypass grafting was done in 2011. She also had a coronary stent the following year., total knee arthroplasty - the, - Psychiatric History: No pertinent psych hx CHIP FRIER History: No pertinent CHIP FRIER history Lives: Alone Smoking Status: Never smoker Alcohol: None Drugs: None - *Family History Maternal History Items: Heart Disease Paternal History Items: Heart Disease Review of Systems Constitutional: Denies: Chills, Fever, Weight Change HEENT: Denies: Head Aches, Sinus Congestion, Sinus Drainage Cardiovascular: Reports: Chest Pain, Chest Pressure, Light Headedness, Palpitations. Denies: Edema, Syncope Respiratory: Denies: Cough, Shortness of breath at rest, Sputum production Gastrointestinal: Denies: Abdominal Pain, Nausea, Vomiting Genitourinary: Denies: Dysuria Musculoskeletal: Denies: Joint Pain, Joint Tenderness Skin: Denies: Rash, Wounds Neurological: Denies: Numbness, Tingling, Focal weakness Psychiatric: Denies: Anxiety, Depression, Homicidal Ideations, Suicidal Ideations Hematologic/ Lymphatic: Denies: Easy Bruising, Easy Bleeding VTE Information - Inpt Only VTE Present on Admission: No VTE Mechan Device Prophylaxis: None VTE Pharm Prophylaxis ordered?: Yes - Physical Exam General: Alert, Oriented x3, Cooperative, No apparent distress HEENT: Atraumatic, PERRLA, EOMI, Normocephalic Neck: Supple, No JVD, Negative Carotid Bruits Lungs: Clear to auscultation, Normal air movement Cardiovascular: Regular rate, Regular Rhythm, Normal S1, Normal S2, Murmur Abdomen: Bowel Sounds Present, Soft, Non Tender, Non-Distended Extremities: No clubbing, No cyanosis, No edema, Capillary Refill Less than 3 Seconds Skin: No rashes, No breakdown Musculoskeletal: No Tenderness to Palpation of Joints or Extremities Neurological: Cranial nerves II-XII grossly intact, Neuro grossly intact Psych/Mental Status: Normal Affect, Appropriate Vital Signs Temp Pulse Resp BP Pulse Ox 97.8 F 70 16 157/81 H 99 05/20/17 12:14 05/20/17 15:51 05/20/17 15:42 05/20/17 15:51 05/20/17 15:42 Oxygen Delivery Method Room Air Assessment/Plan She has a past medical history of coronary artery disease status post three-vessel CABG and PTCA, hypertension, chronic diastolic CHF, paroxysmal atrial fibrillation, PVD, osteoarthritis, aortic valve disorder, mitral regurgitation, hyperlipidemia. 1. Acute chest pain-patient has history of CABG/PTCA. She recently had stress test which was negative for ischemia on 05/16/17. Dr. Wilkinson consulted who patient follows with as outpatient. Hold Eliquis. Cycle enzymes. Plan for cardiac catheterization later this week. Repeat EKG with new onset chest pain. Nitro as needed for chest pain. Monitor telemetry. EKG in ER shows sinus rhythm with nonspecific ST changes which were not changed from prior EKG. Chest x-ray negative. CT of the brain unremarkable. Troponin negative ?1. 2. CAD status post three-vessel CABG and PTCA-follows with Dr. Wilkinson. Continue aspirin, beta-danica, Imdur. Patient has a reported intolerance to statins. 3. Chronic diastolic CHF-echocardiogram 05/15/17 showed an estimated ejection fraction of 65%, stage III diastolic dysfunction, mild tricuspid valve insufficiency. No signs of acute CHF. 4. Paroxysmal atrial fibrillation-currently in sinus rhythm. Continue beta-danica and amiodarone. Eliquis on hold given plans for cardiac catheterization. 5. Peripheral vascular disease-continue aspirin. 6. Hypertension-elevated on admission which has since improved without medication. Continue metoprolol, Imdur, ramipril. 7. Hyperlipidemia-patient has a reported intolerance to statin. Recent lipid panel WNL. 8. Anxiety-continue home Ativan regimen. 9. GERD-continue omeprazole. DVT prophylaxis-Lovenox subcu. This patient was seen by SONU Vera under the supervision of Dr. Mairn.
--- NOTE | 2017-05-20 16:26 | HP.PCM_ITS ---
Problem List (1) Atherosclerosis of coronary artery bypass graft without angina pectoris Status: Chronic Comment: PRO to LAD< SVG to distal L CFX, SVG to RCA 2009 (2) History of percutaneous transluminal coronary angioplasty Status: Chronic Comment: PTCA/stent to SVG of OM2 11/13/2011, 03/25/12 (3) Aortic insufficiency Status: Chronic Comment: Mild (4) Ascending aortic aneurysm Status: Chronic Comment: Aortic Root (5) Family history of premature coronary heart disease Status: Chronic Comment: Male < 55 (6) Chronic insomnia Status: Chronic (7) Carotid bruit Status: Chronic Comment: Left (8) Benign essential hypertension Status: Chronic (9) Coronary atherosclerosis of [place] coronary artery Status: Chronic Comment: status post CABG and stent. (10) HLD (hyperlipidemia) Status: Chronic Qualifiers: (11) Osteoarthritis Status: Chronic (12) Biatrial enlargement Status: Chronic (13) Atrial fibrillation Status: Chronic Qualifiers: Atrial fibrillation type: paroxysmal Qualified Code(s): I48.0 - Paroxysmal atrial fibrillation (14) S/P CABG x 3 Status: Chronic Comment: PRO to LAD, SVG to distal L CFX, SVG to RCA 2009 (15) S/P PTCA (percutaneous transluminal coronary angioplasty) Status: Chronic (16) PVD (peripheral vascular disease) Status: Chronic (17) Mitral valve regurgitation Status: Chronic Qualifiers: (18) Aortic valve disorder Status: Chronic (19) Anemia Status: Chronic (20) Diastolic CHF, chronic Status: Chronic (21) Thoracic aortic aneurysm Status: Chronic History of Present Illness Date of Admission: 05/20/17 Chief Complaint: Chest pain, palpitations. The patient is a 81 year old F who presents to the emergency room with chest pain and palpitations. She was recently discharged from PCU 05/16/17 for similar presenting symptoms. Patient underwent nuclear stress test during admission which was negative for ischemia. Her cardiac enzymes were negative. She had an echocardiogram which showed an estimated ejection fraction of 65%, stage III diastolic dysfunction, mild tricuspid valve insufficiency. Patient was also noted to be in atrial fibrillation with RVR during recent admission in which she was converted to sinus rhythm with a Cardizem drip. She was discharged on amiodarone 200 mg daily and Eliquis. She was to follow-up in the near future with Dr. Wilkinson. Patient states this morning she began to have chest pain again which is a fairly constant pressure and occurs even while at rest. Patient states she did not have any nitro at home and did not take any medication to try to relieve the pain. Patient states she took her blood pressure at home during episode of chest pain and blood pressure was over 200 systolically. She complained of associated pain down her left arm and left shoulder. Describes associated dizziness. Patient states since she began taking amiodarone that she has felt slightly unsteady on her feet. She also describes associated heart fluttering. She states when she checked her blood pressure, her heart rate was normal per her machine. Patient states she is concerned she has a blockage in her heart. She states she had previous symptoms when she had CABG in the past. Her other past medical history includes coronary artery disease status post three-vessel CABG and PTCA, hypertension, chronic diastolic CHF, paroxysmal atrial fibrillation, PVD, osteoarthritis, aortic valve disorder, mitral regurgitation, hyperlipidemia. Past Medical History Past Medical History (Chronic Problems): Chronic Problems (Last Updated 05/20/17 @ 08:38 by Emperatriz Cazares) Atherosclerosis of coronary artery bypass graft without angina pectoris (Chronic ) PRO to LAD< SVG to distal L CFX, SVG to RCA 2009 History of percutaneous transluminal coronary angioplasty (Chronic) PTCA/stent to SVG of OM2 11/13/2011, 03/25/12 Aortic insufficiency (Chronic) Mild Ascending aortic aneurysm (Chronic) Aortic Root Family history of premature coronary heart disease (Chronic) Male < 55 Chronic insomnia (Chronic) Carotid bruit (Chronic) Left Benign essential hypertension (Chronic) Coronary atherosclerosis of [place] coronary artery (Chronic) status post CABG and stent. HLD (hyperlipidemia) (Chronic) Osteoarthritis (Chronic) Biatrial enlargement (Chronic) Atrial fibrillation (Chronic) S/P CABG x 3 (Chronic) PRO to LAD, SVG to distal L CFX, SVG to RCA 2009 S/P PTCA (percutaneous transluminal coronary angioplasty) (Chronic) PVD (peripheral vascular disease) (Chronic) Mitral valve regurgitation (Chronic) Aortic valve disorder (Chronic) Anemia (Chronic) Diastolic CHF, chronic (Chronic) Thoracic aortic aneurysm (Chronic) Allergies alendronate sodium [From Fosamax] Allergy (Verified 05/15/17 12:44) Unknown atorvastatin calcium [From Lipitor] Allergy (Verified 05/15/17 12:44) Unknown colestipol HCl [From Colestid] Allergy (Verified 05/15/17 12:44) Unknown cortisone acetate [From Cortone] Allergy (Verified 05/15/17 12:44) Unknown ezetimibe [From Zetia] Allergy (Verified 05/15/17 12:44) Unknown gabapentin Allergy (Verified 05/15/17 12:44) Unknown goserelin acetate [From Zoladex] Allergy (Verified 05/15/17 12:44) Unknown nabumetone Allergy (Verified 05/15/17 12:44) Other paroxetine HCl [From Paxil] Allergy (Verified 05/15/17 12:44) Unknown rosuvastatin calcium [From Crestor] Allergy (Verified 05/15/17 12:44) Unknown sertraline HCl [From Zoloft] Allergy (Verified 05/15/17 12:44) Unknown venlafaxine HCl [From Effexor] Allergy (Verified 05/15/17 12:44) Unknown acetaminophen [From Vicodin] Adverse Reaction (Verified 05/15/17 12:44) KEEPS ME AWAKE carvedilol Adverse Reaction (Verified 05/15/17 12:44) Unknown hydrocodone bitartrate [From Vicodin] Adverse Reaction (Verified 05/15/17 12:44) KEEPS ME AWAKE Home Medications: Ambulatory Orders Medication Instructions Recorded Aspirin [Aspirin, Baby] 81 mg PO DAILY@0800 03/28/15 Calcium Carbonate [Calcium] 600 mg PO DAILY 03/28/15 Isosorbide Mononitrate [Imdur] 60 mg PO DAILY 03/28/15 Lorazepam [Ativan] 0.5 mg PO DAILY PRN 03/28/15 Nitroglycerin [Nitrostat] 0.4 mg SUBLINGUAL Q5M PRN 03/28/15 [place]-3 Fatty Acids [Fish Oil] 1,000 mg PO DAILY 03/28/15 Ramipril [Altace] 10 mg PO BID #60 cap 03/29/15 Omeprazole [Prilosec] 40 mg PO DAILY 05/16/16 Amiodarone HCl 200 mg PO DAILY 05/20/17 Apixaban [Eliquis] 2.5 mg PO BID 05/20/17 Metoprolol(XL)Succ [Toprol Xl 50 mg PO DAILY 05/20/17 (Beta Danica)] Surgical History: angioplasty, coronary bypass surgery - Coronary artery bypass grafting was done in 2011. 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 Denies: Edema, Syncope Respiratory: Denies: Cough, Shortness of breath at rest, Sputum production Gastrointestinal: Denies: Abdominal Pain, Nausea, Vomiting Genitourinary: Denies: Dysuria Musculoskeletal: Denies: Joint Pain, Joint Tenderness Skin: Denies: Rash, Wounds Neurological: Denies: Numbness, Tingling, Focal weakness Psychiatric: Denies: Anxiety, Depression, Homicidal Ideations, Suicidal Ideations Hematologic/ Lymphatic: Denies: Easy Bruising, Easy Bleeding VTE Information - Inpt Only VTE Present on Admission: No VTE Mechan Device Prophylaxis: None VTE Pharm Prophylaxis ordered?: Yes - Physical Exam General: Alert, Oriented x3, Cooperative, No apparent distress HEENT: Atraumatic, PERRLA, EOMI, Normocephalic Neck: Supple, No JVD, Negative Carotid Bruits Lungs: Clear to auscultation, Normal air movement Cardiovascular: Regular rate, Regular Rhythm, Normal S1, Normal S2, Murmur Abdomen: Bowel Sounds Present, Soft, Non Tender, Non-Distended Extremities: No clubbing, No cyanosis, No edema, Capillary Refill Less than 3 Seconds Skin: No rashes, No breakdown Musculoskeletal: No Tenderness to Palpation of Joints or Extremities Neurological: Cranial nerves II-XII grossly intact, Neuro grossly intact Psych/Mental Status: Normal Affect, Appropriate Vital Signs Temp Pulse Resp BP Pulse Ox 97.8 F 70 16 157/81 H 99 05/20/17 12:14 05/20/17 15:51 05/20/17 15:42 05/20/17 15:51 05/20/17 15:42 Oxygen Delivery Method Room Air Assessment/Plan She has a past medical history of coronary artery disease status post three- vessel CABG and PTCA, hypertension, chronic diastolic CHF, paroxysmal atrial fibrillation, PVD, osteoarthritis, aortic valve disorder, mitral regurgitation, hyperlipidemia. 1. Acute chest pain-patient has history of CABG/PTCA. She recently had stress test which was negative for ischemia on 05/16/17. Dr. Wilkinson consulted who patient follows with as outpatient. Hold Eliquis. Cycle enzymes. Plan for cardiac catheterization later this week. Repeat EKG with new onset chest pain. Nitro as needed for chest pain. Monitor telemetry. EKG in ER shows sinus rhythm with nonspecific ST changes which were not changed from prior EKG. Chest x-ray negative. CT of the brain unremarkable. Troponin negative ?1. 2. CAD status post three-vessel CABG and PTCA-follows with Dr. Wilkinson. Continue aspirin, beta-danica, Imdur. Patient has a reported intolerance to statins. 3. Chronic diastolic CHF-echocardiogram 05/15/17 showed an estimated ejection fraction of 65%, stage III diastolic dysfunction, mild tricuspid valve insufficiency. No signs of acute CHF. 4. Paroxysmal atrial fibrillation-currently in sinus rhythm. Continue beta- danica and amiodarone. Eliquis on hold given plans for cardiac catheterization. 5. Peripheral vascular disease-continue aspirin. 6. Hypertension-elevated on admission which has since improved without medication. Continue metoprolol, Imdur, ramipril. 7. Hyperlipidemia-patient has a reported intolerance to statin. Recent lipid panel WNL. 8. Anxiety-continue home Ativan regimen. 9. GERD-continue omeprazole. DVT prophylaxis-Lovenox subcu. This patient was seen by SONU Vera under the supervision of Dr. Marin.
--- NOTE | 2017-05-20 18:27 | PCM.CONS.C ---
Problem List (1) Chest pain Status: Acute (2) Coronary atherosclerosis of [place] coronary artery Status: Chronic Qualifiers: [place] vs. transplanted heart: [place] heart Comment: status post CABG and stent. (3) S/P CABG x 3 Status: Chronic Comment: PRO to LAD, SVG to distal L CFX, SVG to RCA 2009 (4) S/P PTCA (percutaneous transluminal coronary angioplasty) Status: Chronic (5) Mitral valve regurgitation Status: Chronic Qualifiers: (6) Aortic valve disorder Status: Chronic (7) Atrial fibrillation Status: Chronic Qualifiers: Atrial fibrillation type: paroxysmal Qualified Code(s): I48.0 - Paroxysmal atrial fibrillation (8) Diastolic CHF, chronic Status: Chronic (9) Thoracic aortic aneurysm Status: Chronic (10) HLD (hyperlipidemia) Status: Chronic Qualifiers: (11) Benign essential hypertension Status: Chronic Reason for Consult Date of Consultation: 05/20/17 History of Present Illness: The patient is a 81 year old white female with a past cardiovascular history which has included underlying CAD, CABG, PTCA, mitral valve regurgitation, aortic valve disorder, paroxysmal atrial fibrillation, chronic diastolic mediated CHF, thoracic aortic aneurysm, hyperlipidemia, and hypertension who is referred for evaluation of chest pain. Has recently undergone [facility] hospitalization for concerns of paroxysmal atrial fibrillation with rapid ventricular response was associated symptoms. Led to a noninvasive evaluation which included a transthoracic echocardiogram or her LVEF was 65% with mild MR, mild TR, mild focal aortic valve calcification, trivial PI, and an estimated RV systolic pressure 29 mmHg. There was decreased diastolic compliance. She had a pharmacologic stress nuclear imaging study which was thought to be negative. She did not require diagnostic cardiac catheterization. She was released home on medical management including the initiation of amiodarone therapy and anticoagulant therapy with apixaban/Eliquis. She has returned to the hospital based upon a variety of concerns. She noted her blood pressure was elevated yesterday evening and today. She felt discomfort in her chest as well as in her neck. She had associated shortness of breath and nausea but no emesis. She did not lose consciousness. In the emergency department she was evaluated and noted to be hypertensive. Her ECG demonstrated sinus rhythm with nonspecific ST segment allergy. She was brought back into the hospital for further evaluation and care. Thus far her troponin I levels have been negative. She states overall she is feeling somewhat better. Her blood pressure appears to have improved somewhat. [] Past Medical History Allergies/Adverse Reactions: Allergies alendronate sodium [From Fosamax] Allergy (Verified 05/15/17 12:44) Unknown atorvastatin calcium [From Lipitor] Allergy (Verified 05/15/17 12:44) Unknown colestipol HCl [From Colestid] Allergy (Verified 05/15/17 12:44) Unknown cortisone acetate [From Cortone] Allergy (Verified 05/15/17 12:44) Unknown ezetimibe [From Zetia] Allergy (Verified 05/15/17 12:44) Unknown gabapentin Allergy (Verified 05/15/17 12:44) Unknown goserelin acetate [From Zoladex] Allergy (Verified 05/15/17 12:44) Unknown nabumetone Allergy (Verified 05/15/17 12:44) Other paroxetine HCl [From Paxil] Allergy (Verified 05/15/17 12:44) Unknown rosuvastatin calcium [From Crestor] Allergy (Verified 05/15/17 12:44) Unknown sertraline HCl [From Zoloft] Allergy (Verified 05/15/17 12:44) Unknown venlafaxine HCl [From Effexor] Allergy (Verified 05/15/17 12:44) Unknown acetaminophen [From Vicodin] Adverse Reaction (Verified 05/15/17 12:44) KEEPS ME AWAKE carvedilol Adverse Reaction (Verified 05/15/17 12:44) Unknown hydrocodone bitartrate [From Vicodin] Adverse Reaction (Verified 05/15/17 12:44) KEEPS ME AWAKE Home Medications: Ambulatory Orders Medication Instructions Recorded Aspirin [Aspirin, Baby] 81 mg PO DAILY@0800 03/28/15 Calcium Carbonate [Calcium] 600 mg PO DAILY 03/28/15 Isosorbide Mononitrate [Imdur] 60 mg PO DAILY 03/28/15 Lorazepam [Ativan] 0.5 mg PO DAILY PRN 03/28/15 Nitroglycerin [Nitrostat] 0.4 mg SUBLINGUAL Q5M PRN 03/28/15 [place]-3 Fatty Acids [Fish Oil] 1,000 mg PO DAILY 03/28/15 Ramipril [Altace] 10 mg PO BID #60 cap 03/29/15 Omeprazole [Prilosec] 40 mg PO DAILY 05/16/16 Amiodarone HCl 200 mg PO DAILY 05/20/17 Apixaban [Eliquis] 2.5 mg PO BID 05/20/17 Metoprolol(XL)Succ [Toprol Xl 50 mg PO DAILY 05/20/17 (Beta Jt)] Past Medical History (Chronic Problems): Chronic Problems (Last Updated 05/20/17 @ 08:38 by Emperatriz Cazares) Atherosclerosis of coronary artery bypass graft without angina pectoris (Chronic) PRO to LAD< SVG to distal L CFX, SVG to RCA 2009 History of percutaneous transluminal coronary angioplasty (Chronic) PTCA/stent to SVG of OM2 11/13/2011, 03/25/12 Aortic insufficiency (Chronic) Mild Ascending aortic aneurysm (Chronic) Aortic Root Family history of premature coronary heart disease (Chronic) Male < 55 Chronic insomnia (Chronic) Carotid bruit (Chronic) Left Benign essential hypertension (Chronic) Coronary atherosclerosis of [place] coronary artery (Chronic) status post CABG and stent. HLD (hyperlipidemia) (Chronic) Osteoarthritis (Chronic) Biatrial enlargement (Chronic) Atrial fibrillation (Chronic) S/P CABG x 3 (Chronic) PRO to LAD, SVG to distal L CFX, SVG to RCA 2009 S/P PTCA (percutaneous transluminal coronary angioplasty) (Chronic) PVD (peripheral vascular disease) (Chronic) Mitral valve regurgitation (Chronic) Aortic valve disorder (Chronic) Anemia (Chronic) Diastolic CHF, chronic (Chronic) Thoracic aortic aneurysm (Chronic) Surgical History: angioplasty, coronary bypass surgery - Coronary artery bypass grafting was done in 2011. 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 Denies: Orthopnea, PND, Peripheral Edema, Palpitations, Lightheadedness, Dizziness, Near Syncope, Syncope Respiratory: Reports: Shortness of Breath. Denies: Cough, Sputum Production, Hemoptysis Gastrointestinal: Reports: Nausea. Denies: Hematemesis, Hematochezia, Melena Genitourinary: Denies: Dysuria, Hematuria Skin: Denies: Rash Subjectve: This is an 81-year-old thin white female who appears to be resting comfortably at the moment in no acute distress. Objective: Vital Signs Temp Pulse Resp BP Pulse Ox 98.3 F 77 12 144/72 H 95 05/20/17 16:10 05/20/17 16:10 05/20/17 16:10 05/20/17 16:10 05/20/17 16:10 Oxygen Delivery Method Room Air Weight: 110 lb 0.171 oz Body Mass Index (BMI) 20.1 General: Awake, Alert, Oriented x 3, Cooperative, No Acute Distress Neck: No JVD Lungs: Clear to auscultation Cardiovascular: Regular Rhythm, Normal S1, Normal S2 Murmur Murmur: Grade 2/6, Harsh, Mid Systolic, LLSB, LVOT, Sternal Notch Vascular: No Carotid Bruits Abdomen: Bowel Sounds Present, Soft, Non Tender Extremities: No Cyanosis, No Clubbing, No edema Rhythm: Sinus rhythm EKG: As noted above ECHO: As noted above Stress Test: As noted above Cardiac Cath: 06/07/2014: Elevated left ventricular end-diastolic pressure, LVEF 65%, left main coronary artery with minimal luminal irregularities, LAD with proximal diffuse irregular 85% stenosis and subsequently subtotally occluded with the remainder of the vessel filling from the PRO graft, third diagonal branch with proximal diffuse irregular 95% stenosis, LCx with mid diffuse irregular 50% stenosis, OM1 occluded and filling from the SVG graft, RCA being large and dominant and diffusely disease with a proximal to distal 50-75% stenosis and distal 95% stenosis, right PDA with mid 50-75% stenosis, PRO to the LAD patent being a small vessel with minimal luminal irregularities, SVG to the OM patent with a mid stented segment patent, SVG to the RCA patent, mitral valve with mild to moderate MR, aortic root with possible dilatation CT Surgery: 10/20/2009: [facility]: PRO to the LAD, SVG to the OM, and SVG to the right PDA CXR: Preliminary evaluation: Post open heart surgery changes: No acute changes: Please see official report Chest CT Scan: April 2016: Descending thoracic aorta reported is mildly dilated at that time with no significant change compared to previous study from 2014 Assessment/Plan 1. Chest pain The patient presents with chest pain and a variety of associated symptoms. It is unclear whether this was related to recurrence of the patient's paroxysmal atrial dysrhythmia, hypertension, or her underlying cardiovascular disease with CAD and graft vessel disease despite her recent unremarkable pharmacologic stress nuclear imaging study. At the present time she is going to be monitored. Her cardiac enzymes will be followed. Her ECG will be followed. She will be considered for further definitive evaluation of her coronary and graft anatomy with diagnostic cardiac catheterization. However she will need to be off her anticoagulant therapy for an appropriate period of time prior to proceeding with such a procedure. Interim she will continue medical management. This will include her aspirin therapy, nitrates, beta-blockers, afterload reducing agents, lipid-lowering agents, anti-platelet and anticoagulant agents as deemed appropriate. 2. CAD status post CABG and status post PCI Have underlying cardiovascular disease as previously described. Again it is unclear as her chest discomfort is related to this versus being related to other issues such as her atrial dysrhythmia or her hypertension. She will continue evaluation care as described above. 3. 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 This will need to be followed by history, exam, and echocardiographic studies as deemed appropriate. 4. Chronic diastolic mediated CHF The patient does have history of chronic diastolic mediated CHF. She appears to be without acute symptoms at this time. She will continue combined medical management and follow-up. 5. Thoracic aortic aneurysm The does have a history of an underlying thoracic aortic aneurysm. Based upon her previous studies it was described as mild. Should be followed over time with chest CT scan. 6. Hyperlipidemia She will continue lipid-lowering therapy as deemed appropriate. 7. Hypertension It is unclear whether her hypertension is a primary etiology for her symptoms, etc. versus being secondary. Her blood pressures will be followed. Her medications will be adjusted as needed. Overall, at the present time, the patient will continue to be monitored. She will continue noninvasive and invasive evaluation as deemed appropriate. Her medications will be adjusted as needed. Comment: The above was discussed and reviewed with Dr. Marin. This note was generated with [employer] software. Every effort was made to ensure accuracy, however, computerized instructor correspondence school mistakes may persist.
--- NOTE | 2017-05-20 18:37 | CON.PCM_ITS ---
Problem List (1) Chest pain Status: Acute (2) Coronary atherosclerosis of [place] coronary artery Status: Chronic Qualifiers: [place] vs. transplanted heart: [place] heart Comment: status post CABG and stent. (3) S/P CABG x 3 Status: Chronic Comment: PRO to LAD, SVG to distal L CFX, SVG to RCA 2009 (4) S/P PTCA (percutaneous transluminal coronary angioplasty) Status: Chronic (5) Mitral valve regurgitation Status: Chronic Qualifiers: (6) Aortic valve disorder Status: Chronic (7) Atrial fibrillation Status: Chronic Qualifiers: Atrial fibrillation type: paroxysmal Qualified Code(s): I48.0 - Paroxysmal atrial fibrillation (8) Diastolic CHF, chronic Status: Chronic (9) Thoracic aortic aneurysm Status: Chronic (10) HLD (hyperlipidemia) Status: Chronic Qualifiers: (11) Benign essential hypertension Status: Chronic Reason for Consult Date of Consultation: 05/20/17 History of Present Illness: The patient is a 81 year old white female with a past cardiovascular history which has included underlying CAD, CABG, PTCA, mitral valve regurgitation, aortic valve disorder, paroxysmal atrial fibrillation, chronic diastolic mediated CHF, thoracic aortic aneurysm, hyperlipidemia, and hypertension who is referred for evaluation of chest pain. Has recently undergone [facility] hospitalization for concerns of paroxysmal atrial fibrillation with rapid ventricular response was associated symptoms. Led to a noninvasive evaluation which included a transthoracic echocardiogram or her LVEF was 65% with mild MR, mild TR, mild focal aortic valve calcification, trivial PI, and an estimated RV systolic pressure 29 mmHg. There was decreased diastolic compliance. She had a pharmacologic stress nuclear imaging study which was thought to be negative. She did not require diagnostic cardiac catheterization. She was released home on medical management including the initiation of amiodarone therapy and anticoagulant therapy with apixaban/ Eliquis. She has returned to the hospital based upon a variety of concerns. She noted her blood pressure was elevated yesterday evening and today. She felt discomfort in her chest as well as in her neck. She had associated shortness of breath and nausea but no emesis. She did not lose consciousness. In the emergency department she was evaluated and noted to be hypertensive. Her ECG demonstrated sinus rhythm with nonspecific ST segment allergy. She was brought back into the hospital for further evaluation and care. Thus far her troponin I levels have been negative. She states overall she is feeling somewhat better. Her blood pressure appears to have improved somewhat. [] Past Medical History Allergies/Adverse Reactions: Allergies alendronate sodium [From Fosamax] Allergy (Verified 05/15/17 12:44) Unknown atorvastatin calcium [From Lipitor] Allergy (Verified 05/15/17 12:44) Unknown colestipol HCl [From Colestid] Allergy (Verified 05/15/17 12:44) Unknown cortisone acetate [From Cortone] Allergy (Verified 05/15/17 12:44) Unknown ezetimibe [From Zetia] Allergy (Verified 05/15/17 12:44) Unknown gabapentin Allergy (Verified 05/15/17 12:44) Unknown goserelin acetate [From Zoladex] Allergy (Verified 05/15/17 12:44) Unknown nabumetone Allergy (Verified 05/15/17 12:44) Other paroxetine HCl [From Paxil] Allergy (Verified 05/15/17 12:44) Unknown rosuvastatin calcium [From Crestor] Allergy (Verified 05/15/17 12:44) Unknown sertraline HCl [From Zoloft] Allergy (Verified 05/15/17 12:44) Unknown venlafaxine HCl [From Effexor] Allergy (Verified 05/15/17 12:44) Unknown acetaminophen [From Vicodin] Adverse Reaction (Verified 05/15/17 12:44) KEEPS ME AWAKE carvedilol Adverse Reaction (Verified 05/15/17 12:44) Unknown hydrocodone bitartrate [From Vicodin] Adverse Reaction (Verified 05/15/17 12:44) KEEPS ME AWAKE Home Medications: Ambulatory Orders Medication Instructions Recorded Aspirin [Aspirin, Baby] 81 mg PO DAILY@0800 03/28/15 Calcium Carbonate [Calcium] 600 mg PO DAILY 03/28/15 Isosorbide Mononitrate [Imdur] 60 mg PO DAILY 03/28/15 Lorazepam [Ativan] 0.5 mg PO DAILY PRN 03/28/15 Nitroglycerin [Nitrostat] 0.4 mg SUBLINGUAL Q5M PRN 03/28/15 [place]-3 Fatty Acids [Fish Oil] 1,000 mg PO DAILY 03/28/15 Ramipril [Altace] 10 mg PO BID #60 cap 03/29/15 Omeprazole [Prilosec] 40 mg PO DAILY 05/16/16 Amiodarone HCl 200 mg PO DAILY 05/20/17 Apixaban [Eliquis] 2.5 mg PO BID 05/20/17 Metoprolol(XL)Succ [Toprol Xl 50 mg PO DAILY 05/20/17 (Beta Jt)] Past Medical History (Chronic Problems): Chronic Problems (Last Updated 05/20/17 @ 08:38 by Emperatriz Cazares) Atherosclerosis of coronary artery bypass graft without angina pectoris (Chronic ) PRO to LAD< SVG to distal L CFX, SVG to RCA 2009 History of percutaneous transluminal coronary angioplasty (Chronic) PTCA/stent to SVG of OM2 11/13/2011, 03/25/12 Aortic insufficiency (Chronic) Mild Ascending aortic aneurysm (Chronic) Aortic Root Family history of premature coronary heart disease (Chronic) Male < 55 Chronic insomnia (Chronic) Carotid bruit (Chronic) Left Benign essential hypertension (Chronic) Coronary atherosclerosis of [place] coronary artery (Chronic) status post CABG and stent. HLD (hyperlipidemia) (Chronic) Osteoarthritis (Chronic) Biatrial enlargement (Chronic) Atrial fibrillation (Chronic) S/P CABG x 3 (Chronic) PRO to LAD, SVG to distal L CFX, SVG to RCA 2009 S/P PTCA (percutaneous transluminal coronary angioplasty) (Chronic) PVD (peripheral vascular disease) (Chronic) Mitral valve regurgitation (Chronic) Aortic valve disorder (Chronic) Anemia (Chronic) Diastolic CHF, chronic (Chronic) Thoracic aortic aneurysm (Chronic) Surgical History: angioplasty, coronary bypass surgery - Coronary artery bypass grafting was done in 2011. She also had a coronary stent the following year., total knee arthroplasty - the, - Psychiatric History: No pertinent psych hx SHUT OFF WORKER History: No pertinent SHUT OFF WORKER history - *Family History Maternal History Items: Heart Disease Paternal History Items: Heart Disease Lives: Alone Smoking Status: Never smoker Alcohol: None Drugs: None Review of Systems - Review of Systems General: Denies: Fever, Night Sweats, Fatigue Cardiovascular: Reports: Chest Discomfort, Shortness of Breath. Denies: Orthopnea, PND, Peripheral Edema, Palpitations, Lightheadedness, Dizziness, Near Syncope, Syncope Respiratory: Reports: Shortness of Breath. Denies: Cough, Sputum Production, Hemoptysis Gastrointestinal: Reports: Nausea. Denies: Hematemesis, Hematochezia, Melena Genitourinary: Denies: Dysuria, Hematuria Skin: Denies: Rash Subjectve: This is an 81-year-old thin white female who appears to be resting comfortably at the moment in no acute distress. Objective: Vital Signs Temp Pulse Resp BP Pulse Ox 98.3 F 77 12 144/72 H 95 05/20/17 16:10 05/20/17 16:10 05/20/17 16:10 05/20/17 16:10 05/20/17 16:10 Oxygen Delivery Method Room Air Weight: 110 lb 0.171 oz Body Mass Index (BMI) 20.1 General: Awake, Alert, Oriented x 3, Cooperative, No Acute Distress Neck: No JVD Lungs: Clear to auscultation Cardiovascular: Regular Rhythm, Normal S1, Normal S2 Murmur Murmur: Grade 2/6, Harsh, Mid Systolic, LLSB, LVOT, Sternal Notch Vascular: No Carotid Bruits Abdomen: Bowel Sounds Present, Soft, Non Tender Extremities: No Cyanosis, No Clubbing, No edema Rhythm: Sinus rhythm EKG: As noted above ECHO: As noted above Stress Test: As noted above Cardiac Cath: 06/07/2014: Elevated left ventricular end-diastolic pressure, LVEF 65%, left main coronary artery with minimal luminal irregularities, LAD with proximal diffuse irregular 85% stenosis and subsequently subtotally occluded with the remainder of the vessel filling from the PRO graft, third diagonal branch with proximal diffuse irregular 95% stenosis, LCx with mid diffuse irregular 50% stenosis, OM1 occluded and filling from the SVG graft, RCA being large and dominant and diffusely disease with a proximal to distal 50-75% stenosis and distal 95% stenosis, right PDA with mid 50-75% stenosis, PRO to the LAD patent being a small vessel with minimal luminal irregularities, SVG to the OM patent with a mid stented segment patent, SVG to the RCA patent, mitral valve with mild to moderate MR, aortic root with possible dilatation CT Surgery: 10/20/2009: [facility]: PRO to the LAD, SVG to the OM, and SVG to the right PDA CXR: Preliminary evaluation: Post open heart surgery changes: No acute changes: Please see official report Chest CT Scan: April 2016: Descending thoracic aorta reported is mildly dilated at that time with no significant change compared to previous study from 2014 Assessment/Plan 1. Chest pain The patient presents with chest pain and a variety of associated symptoms. It is unclear whether this was related to recurrence of the patient's paroxysmal atrial dysrhythmia, hypertension, or her underlying cardiovascular disease with CAD and graft vessel disease despite her recent unremarkable pharmacologic stress nuclear imaging study. At the present time she is going to be monitored. Her cardiac enzymes will be followed. Her ECG will be followed. She will be considered for further definitive evaluation of her coronary and graft anatomy with diagnostic cardiac catheterization. However she will need to be off her anticoagulant therapy for an appropriate period of time prior to proceeding with such a procedure. Interim she will continue medical management. This will include her aspirin therapy, nitrates, beta-blockers, afterload reducing agents, lipid-lowering agents, anti-platelet and anticoagulant agents as deemed appropriate. 2. CAD status post CABG and status post PCI Have underlying cardiovascular disease as previously described. Again it is unclear as her chest discomfort is related to this versus being related to other issues such as her atrial dysrhythmia or her hypertension. She will continue evaluation care as described above. 3. 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 This will need to be followed by history, exam, and echocardiographic studies as deemed appropriate. 4. Chronic diastolic mediated CHF The patient does have history of chronic diastolic mediated CHF. She appears to be without acute symptoms at this time. She will continue combined medical management and follow-up. 5. Thoracic aortic aneurysm The does have a history of an underlying thoracic aortic aneurysm. Based upon her previous studies it was described as mild. Should be followed over time with chest CT scan. 6. Hyperlipidemia She will continue lipid-lowering therapy as deemed appropriate. 7. Hypertension It is unclear whether her hypertension is a primary etiology for her symptoms, etc. versus being secondary. Her blood pressures will be followed. Her medications will be adjusted as needed. Overall, at the present time, the patient will continue to be monitored. She will continue noninvasive and invasive evaluation as deemed appropriate. Her medications will be adjusted as needed. Comment: The above was discussed and reviewed with Dr. Marin. This note was generated with Diafer[employer]ation software. Every effort was made to ensure accuracy, however, computerized abattoir supervisor mistakes may persist.
--- NOTE | 2017-05-20 18:46 | CT_ITS ---
STUDY: CT CHEST WITH CONTRAST REASON FOR EXAM: Female, 81 years old. Thoracic aortic aneurysm. RADIATION DOSAGE (If Supplied By Facility): CTDIvol = ( 11.49 ) mGy, DLP = ( 217.91 ) mGycm TECHNIQUE: Transaxial imaging was performed following intravenous administration of 100ml ml of Isovue 300 contrast material. Coronal and sagittal reformatted images were created. Individualized dose optimization techniques were used for this CT. COMPARISON: None FINDINGS: There are no pulmonary infiltrates or pleural effusions. There is atelectasis noted at the lung bases. There is no pneumothorax. The heart and pericardium are within normal limits. There is no thoracic lymphadenopathy. There is ectasia of the ascending aorta, measuring up to 4.0 cm in maximal dimension. The aortic arch and descending thoracic aorta are normal in caliber. There is no evidence of thoracic aortic dissection. There are no filling defects within the pulmonary arteries to suggest pulmonary embolus. Images through the upper abdomen demonstrate no significant abnormality. There are no destructive osseous lesions. CT/Chest WITH Contrast IMPRESSION: Ectasia of the ascending aorta, measuring up to 4.0 cm in maximal dimension. No evidence of thoracic aortic dissection or pulmonary embolus. Bibasilar atelectasis. Otherwise, clear lungs. Electronically Signed: Andrade Raza, at 23:15 EST Tel , Service support ,
[2017-05-20] MEDS: Clopidogrel Bisulfate 75 MG Tablet PO (20:18)
[2017-05-20] MEDS: 0.9% Normal Saline 1,000 ML 50 ML IV (20:18)
[2017-05-20] MEDS: Enoxaparin 60 MG/0.6 ML Syringe 50 MG SC (20:19)
[2017-05-20] MEDS: Ramipril 10 MG Capsule PO (20:20)
--- NOTE | 2017-05-20 21:11 | EKG12_ITS ---
Test Reason : Blood Pressure : / mmHG Vent. Rate : 078 BPM Atrial Rate : 078 BPM P-R Int : 154 ms QRS Dur : 080 ms QT Int : 420 ms P-R-T Axes : 049 022 063 degrees QTc Int : 478 ms Normal sinus rhythm Left ventricular hypertrophy Nonspecific ST segment abnormality Abnormal ECG Confirmed by ABIOLA BOYCE, SAFIA ([id number]), design editor EM LANDA ([id number] on 05/23/2017 1:41:05 PM Referred By: HIEN Confirmed By:SAIFA CULVER MD
--- NOTE | 2017-05-20 21:41 | NURSING ---
Pt was experiencing chest pain of 4 to 8 out of 10 at 2109. ekg done - SR. notified. Ordered PRN nitro and Tylenol. Pt declined. Pt denies pain any longer at this time.
[2017-05-21] VITALS (12 sets, daily range): BP systolic 125–156; BP diastolic 66–81; PULSE 59–70; RESP 15–18; TEMP 36.2–36.9; O2SAT 96–99
[2017-05-21] MEDS: 0.9% Normal Saline 1,000 ML 50 ML IV (05:00)
[2017-05-21] MEDS: Aspirin 81 MG TAB.CHEW PO (08:37)
--- NOTE | 2017-05-21 08:43 | PN.CARD_ITS ---
Subjectve: The patient denies ongoing chest or neck discomfort at this time. She needs to have concerns with respect to some vague gastrointestinal related issues / discomfort which she states has been long-standing. Objective: Vital Signs Temp Pulse Resp BP Pulse Ox 97.2 F L 62 16 156/66 H 99 05/21/17 06:55 05/21/17 06:55 05/21/17 06:55 05/21/17 06:55 05/21/17 06:55 Oxygen Delivery Method Room Air Weight: 110 lb 0.171 oz Body Mass Index (BMI) 20.1 Intake and Output for Last 24 Hours 05/19/17 05/20/17 05/21/17 23:59 23:59 23:59 Intake Total 320 / 320 669 / 669 Output Total 1300 / 1300 Balance 320 / 320 -631 / -631 General: Awake, Alert, Oriented x 3, Cooperative, No Acute Distress Neck: No JVD Lungs: Clear to auscultation Cardiovascular: Regular Rhythm, Normal S1, Normal S2 Murmur Murmur: Grade 2/6, Harsh, Mid Systolic, LLSB, LVOT, Sternal Notch, - - 2/6 soft diastolic murmur at the lower left sternal border Abdomen: Bowel Sounds Present, Soft, Non Tender, No Organomegaly Extremities: No edema 05/20/17 17:00: Troponin I < 0.02 05/20/17 20:56: Troponin I < 0.02 05/21/17 02:55: Troponin I < 0.02 Rhythm: Sinus rhythm EKG: Rhythm; no acute ECG changes CT scan: A ascending thoracic aorta measuring approximately 4.0 cm: No thromboembolic disease reported: Please see official report Assessment/Plan 1. Chest pain The patient presents with chest pain and a variety of associated symptoms. It is unclear whether this was related to recurrence of the patient's paroxysmal atrial dysrhythmia, hypertension, or her underlying cardiovascular disease with CAD and graft vessel disease despite her recent unremarkable pharmacologic stress nuclear imaging study. At the present time she is going to be monitored. Her cardiac enzymes will be followed. They have been negative thus far. Her ECG will be followed. Not demonstrated any acute changes thus far. She will be considered for further definitive evaluation of her coronary and graft anatomy with diagnostic cardiac catheterization. However she will need to be off her anticoagulant therapy for an appropriate period of time prior to proceeding with such a procedure. Interim she will continue medical management. This will include her aspirin therapy, nitrates, beta-blockers, afterload reducing agents, lipid-lowering agents, anti-platelet and anticoagulant agents as deemed appropriate. 2. CAD status post CABG and status post PCI Have underlying cardiovascular disease as previously described. Again it is unclear as her chest discomfort is related to this versus being related to other issues such as her atrial dysrhythmia or her hypertension. She will continue evaluation care as described above. 3. 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 This will need to be followed by history, exam, and echocardiographic studies as deemed appropriate. 4. Chronic diastolic mediated CHF The patient does have history of chronic diastolic mediated CHF. She appears to be without acute symptoms at this time. She will continue combined medical management and follow-up. 5. Thoracic aortic aneurysm The does have a history of an underlying thoracic aortic aneurysm. Based upon her previous studies it was described as mild. Has been reassessed and the results are as noted above. 6. Hyperlipidemia She will continue lipid-lowering therapy as deemed appropriate. 7. Hypertension It is unclear whether her hypertension is a primary etiology for her symptoms, etc. versus being secondary. Her blood pressures will be followed. However, as her blood pressures have remained elevated, she will initiate additional medical therapy with amlodipine at 2.5 mg p.o. daily. Overall, at the present time, the patient will continue to be monitored. She will continue noninvasive and invasive evaluation as deemed appropriate. Her medications will be adjusted as needed. This note was generated with [employer] Dictation software. Every effort was made to ensure accuracy, however, computerized home energy consultant supervisor mistakes may persist.
[2017-05-21] MEDS: Amiodarone 200 MG Tablet PO (09:45)
[2017-05-21] MEDS: Metoprolol(XL)Succ 50 MG Tablet PO (09:45)
[2017-05-21] MEDS: Clopidogrel Bisulfate 75 MG Tablet PO (09:45)
[2017-05-21] MEDS: Pantoprazole Sodium 40 MG Tablet PO (09:45)
[2017-05-21] MEDS: Isosorbide Mononitrate 60 MG Tablet PO (09:45)
[2017-05-21] MEDS: Ramipril 10 MG Capsule PO ×2 (09:45→21:30)
[2017-05-21] MEDS: amLODIPine 2.5 MG Tablet PO (09:49)
--- NOTE | 2017-05-21 11:45 | PCM.PROGNOTE ---
<Valerie Hsu - Last Filed: 05/21/17 11:52> Patient Problems: Active and Suspected Problems (Last Updated 05/20/17 @ 08:38 by Emperatriz Cazares) Chest pain (Acute) Subjective: Patient seen and examined. Resting comfortably in bed. Denies chest pain at this time. Complains of abdominal discomfort which she states occurred after she took her aspirin this morning. Denies nausea, vomiting. Denies dizziness, shortness of breath, palpitations. - Physical Exam General: Alert, Oriented x3, Cooperative, No apparent distress HEENT: Atraumatic, PERRLA, EOMI, Normocephalic Neck: Supple, No JVD, Negative Carotid Bruits Lungs: Clear to auscultation, Normal air movement Cardiovascular: Regular rate, Regular Rhythm, Normal S1, Normal S2, Murmur Abdomen: Bowel Sounds Present, Soft, Non Tender, Non-Distended Extremities: No clubbing, No cyanosis, No edema, Capillary Refill Less than 3 Seconds Skin: No rashes, No breakdown Musculoskeletal: No Tenderness to Palpation of Joints or Extremities Neurological: Cranial nerves II-XII grossly intact, Neuro grossly intact Psych/Mental Status: Normal Affect, Appropriate Vital Signs Temp Pulse Resp BP Pulse Ox 98.5 F 70 18 154/73 H 98 05/21/17 09:42 05/21/17 09:45 05/21/17 09:42 05/21/17 09:45 05/21/17 09:42 Oxygen Delivery Method Room Air Weight: 49.9 kg Body Mass Index (BMI) 20.1 Intake and Output for Last 24 Hours 05/19/17 05/20/17 05/21/17 23:59 23:59 23:59 Intake Total 320 / 320 669 / 669 Output Total 1300 / 1300 Balance 320 / 320 -631 / -631 Laboratory Tests Past 24 Hrs 05/20/17 05/20/17 05/21/17 17:00 20:56 02:55 Troponin I < 0.02 < 0.02 < 0.02 Assessment/Plan Active and Suspected Problems (Last Updated 05/20/17 @ 08:38 by Emperatriz Cazares) Chest pain (Acute) Patient is an 81-year-old female admitted 05/20/17 due to chest pain. She has a past medical history of coronary artery disease status post three-vessel CABG and PTCA, hypertension, chronic diastolic CHF, paroxysmal atrial fibrillation, PVD, osteoarthritis, aortic valve disorder, mitral regurgitation, hyperlipidemia. 1. Acute chest pain-patient has history of CABG/PTCA. She recently had stress test which was negative for ischemia on 05/16/17. Dr. Wilkinson consulted who patient follows with as outpatient. EKG in ER shows sinus rhythm with nonspecific ST changes which were not changed from prior EKG. Chest x-ray negative. CT of the brain unremarkable. Troponin negative ?4. Eliquis on hold given plans for diagnostic cardiac catheterization later this week. Cardiology following. 2. CAD status post three-vessel CABG and PTCA-follows with Dr. Wilkinson. Continue aspirin, beta-danica, Imdur. Patient has a reported intolerance to statins. 3. Chronic diastolic CHF-echocardiogram 05/15/17 showed an estimated ejection fraction of 65%, stage III diastolic dysfunction, mild tricuspid valve insufficiency. No signs of acute CHF. 4. Paroxysmal atrial fibrillation-currently in sinus rhythm. Continue beta-danica and amiodarone. Eliquis on hold given plans for cardiac catheterization. 5. Peripheral vascular disease-continue aspirin. 6. Hypertension-elevated on admission which has since improved without medication. Continue metoprolol, Imdur, ramipril. 7. Hyperlipidemia-patient has a reported intolerance to statin. Recent lipid panel WNL. 8. Anxiety-continue home Ativan regimen. 9. GERD-continue omeprazole. DVT prophylaxis-Lovenox subcu. This patient was seen by SONU Vera under the supervision of Dr. Claire. <Asia Claire E - Last Filed: 05/21/17 12:16> - Physical Exam Vital Signs Temp Pulse Resp BP Pulse Ox 98.5 F 70 18 154/73 H 98 05/21/17 09:42 05/21/17 09:45 05/21/17 09:42 05/21/17 09:45 05/21/17 09:42 Oxygen Delivery Method Room Air Weight: 110 lb 0.171 oz Body Mass Index (BMI) 20.1 Intake and Output for Last 24 Hours 05/19/17 05/20/17 05/21/17 23:59 23:59 23:59 Intake Total 320 / 320 1533 / 1533 Output Total 1300 / 1300 Balance 320 / 320 233 / 233 Laboratory Tests Past 24 Hrs 05/20/17 05/20/17 05/21/17 17:00 20:56 02:55 Total Bilirubin Direct Bilirubin AST ALT Alkaline Phosphatase Troponin I < 0.02 < 0.02 < 0.02 Total Protein Albumin Lipase 05/21/17 02:55 Total Bilirubin Pending Direct Bilirubin Pending AST Pending ALT Pending Alkaline Phosphatase Pending Troponin I Total Protein Pending Albumin Pending Lipase Pending Assessment/Plan Hospitalist note: I am seeing this patient in conjunction with Valerie Hsu. I independently seen and examined the patient. Progress note above, laboratory data and imaging studies reviewed. I agree with the above treatment plan. Patient seen and examined. This morning, she complained of mid abdominal discomfort. She denied any more chest pain or shortness of breath. She denied nausea vomiting. Denied constipation or diarrhea. Her vital signs are stable. - Physical Exam General: Alert, Oriented x3, Cooperative, No apparent distress. HEENT: Atraumatic, PERRLA, EOMI. Neck: Supple, No JVD, Negative Carotid Bruits, Trachea Midline, Thyroid Normal. Lungs: Clear to auscultation, Normal air movement, No rhonchi, No wheeze, No rales. Cardiovascular: Regular rate, Regular Rhythm, Normal S1, Normal S2, PMI Normal. Abdomen: Bowel Sounds Present, Soft, Non Tender, Non-Distended, No Hepato-splenomegaly. Extremities: No clubbing, No cyanosis, No edema Skin: No rashes, No breakdown Neurological: Neuro grossly intact Vital Signs are stable. Assessment and plan: #1 atypical chest pain, acute. Recurrent chest pain with recent negative stress test on May 16, 2017. EKG revealed sinus rhythm with nonspecific ST-T wave changes, no evidence of acute ischemic changes. Chest x-ray without acute findings. Cardiology consulted and recommended cardiac catheterization. #2 chronic medical problems: CAD status post CABG and stents, chronic diastolic CHF, paroxysmal A. fib, PVD, hypertension, hyperlipidemia, GERD: Stable, continue current medications as above. This note was generated with EpiBoneation software. It may contain incorrect words, spelling, and punctuation that were not noted in checking the note before signing. Code Visit OBSV E&M: 25335 Subsequent observation care L2
--- NOTE | 2017-05-21 11:52 | PN_ITS ---
<Valerie Hsu - Last Filed: 05/21/17 11:52> Patient Problems: Active and Suspected Problems (Last Updated 05/20/17 @ 08:38 by Emperatriz Cazares) Chest pain (Acute) Subjective: Patient seen and examined. Resting comfortably in bed. Denies chest pain at this time. Complains of abdominal discomfort which she states occurred after she took her aspirin this morning. Denies nausea, vomiting. Denies dizziness, shortness of breath, palpitations. - Physical Exam General: Alert, Oriented x3, Cooperative, No apparent distress HEENT: Atraumatic, PERRLA, EOMI, Normocephalic Neck: Supple, No JVD, Negative Carotid Bruits Lungs: Clear to auscultation, Normal air movement Cardiovascular: Regular rate, Regular Rhythm, Normal S1, Normal S2, Murmur Abdomen: Bowel Sounds Present, Soft, Non Tender, Non-Distended Extremities: No clubbing, No cyanosis, No edema, Capillary Refill Less than 3 Seconds Skin: No rashes, No breakdown Musculoskeletal: No Tenderness to Palpation of Joints or Extremities Neurological: Cranial nerves II-XII grossly intact, Neuro grossly intact Psych/Mental Status: Normal Affect, Appropriate Vital Signs Temp Pulse Resp BP Pulse Ox 98.5 F 70 18 154/73 H 98 05/21/17 09:42 05/21/17 09:45 05/21/17 09:42 05/21/17 09:45 05/21/17 09:42 Oxygen Delivery Method Room Air Weight: 49.9 kg Body Mass Index (BMI) 20.1 Intake and Output for Last 24 Hours 05/19/17 05/20/17 05/21/17 23:59 23:59 23:59 Intake Total 320 / 320 669 / 669 Output Total 1300 / 1300 Balance 320 / 320 -631 / -631 Laboratory Tests Past 24 Hrs 05/20/17 05/20/17 05/21/17 17:00 20:56 02:55 Troponin I < 0.02 < 0.02 < 0.02 Assessment/Plan Active and Suspected Problems (Last Updated 05/20/17 @ 08:38 by Emperatriz Cazares) Chest pain (Acute) Patient is an 81-year-old female admitted 05/20/17 due to chest pain. She has a past medical history of coronary artery disease status post three-vessel CABG and PTCA, hypertension, chronic diastolic CHF, paroxysmal atrial fibrillation, PVD, osteoarthritis, aortic valve disorder, mitral regurgitation, hyperlipidemia. 1. Acute chest pain-patient has history of CABG/PTCA. She recently had stress test which was negative for ischemia on 05/16/17. Dr. Wilkinson consulted who patient follows with as outpatient. EKG in ER shows sinus rhythm with nonspecific ST changes which were not changed from prior EKG. Chest x-ray negative. CT of the brain unremarkable. Troponin negative ?4. Eliquis on hold given plans for diagnostic cardiac catheterization later this week. Cardiology following. 2. CAD status post three-vessel CABG and PTCA-follows with Dr. Wilkinson. Continue aspirin, beta-danica, Imdur. Patient has a reported intolerance to statins. 3. Chronic diastolic CHF-echocardiogram 05/15/17 showed an estimated ejection fraction of 65%, stage III diastolic dysfunction, mild tricuspid valve insufficiency. No signs of acute CHF. 4. Paroxysmal atrial fibrillation-currently in sinus rhythm. Continue beta- danica and amiodarone. Eliquis on hold given plans for cardiac catheterization. 5. Peripheral vascular disease-continue aspirin. 6. Hypertension-elevated on admission which has since improved without medication. Continue metoprolol, Imdur, ramipril. 7. Hyperlipidemia-patient has a reported intolerance to statin. Recent lipid panel WNL. 8. Anxiety-continue home Ativan regimen. 9. GERD-continue omeprazole. DVT prophylaxis-Lovenox subcu. This patient was seen by SONU Vera under the supervision of Dr. Claire. <Asia Claire E - Last Filed: 05/21/17 12:16> - Physical Exam Vital Signs Temp Pulse Resp BP Pulse Ox 98.5 F 70 18 154/73 H 98 05/21/17 09:42 05/21/17 09:45 05/21/17 09:42 05/21/17 09:45 05/21/17 09:42 Oxygen Delivery Method Room Air Weight: 110 lb 0.171 oz Body Mass Index (BMI) 20.1 Intake and Output for Last 24 Hours 05/19/17 05/20/17 05/21/17 23:59 23:59 23:59 Intake Total 320 / 320 1533 / 1533 Output Total 1300 / 1300 Balance 320 / 320 233 / 233 Laboratory Tests Past 24 Hrs 05/20/17 05/20/17 05/21/17 17:00 20:56 02:55 Total Bilirubin Direct Bilirubin AST ALT Alkaline Phosphatase Troponin I < 0.02 < 0.02 < 0.02 Total Protein Albumin Lipase 05/21/17 02:55 Total Bilirubin Pending Direct Bilirubin Pending AST Pending ALT Pending Alkaline Phosphatase Pending Troponin I Total Protein Pending Albumin Pending Lipase Pending Assessment/Plan Hospitalist note: I am seeing this patient in conjunction with Valerie Hsu. I independently seen and examined the patient. Progress note above, laboratory data and imaging studies reviewed. I agree with the above treatment plan. Patient seen and examined. This morning, she complained of mid abdominal discomfort. She denied any more chest pain or shortness of breath. She denied nausea vomiting. Denied constipation or diarrhea. Her vital signs are stable. - Physical Exam General: Alert, Oriented x3, Cooperative, No apparent distress. HEENT: Atraumatic, PERRLA, EOMI. Neck: Supple, No JVD, Negative Carotid Bruits, Trachea Midline, Thyroid Normal. Lungs: Clear to auscultation, Normal air movement, No rhonchi, No wheeze, No rales. Cardiovascular: Regular rate, Regular Rhythm, Normal S1, Normal S2, PMI Normal. Abdomen: Bowel Sounds Present, Soft, Non Tender, Non-Distended, No Hepato- splenomegaly. Extremities: No clubbing, No cyanosis, No edema Skin: No rashes, No breakdown Neurological: Neuro grossly intact Vital Signs are stable. Assessment and plan: #1 atypical chest pain, acute. Recurrent chest pain with recent negative stress test on May 16, 2017. EKG revealed sinus rhythm with nonspecific ST- T wave changes, no evidence of acute ischemic changes. Chest x-ray without acute findings. Cardiology consulted and recommended cardiac catheterization. #2 chronic medical problems: CAD status post CABG and stents, chronic diastolic CHF, paroxysmal A. fib, PVD, hypertension, hyperlipidemia, GERD: Stable, continue current medications as above. This note was generated with MOGLation software. It may contain incorrect words, spelling, and punctuation that were not noted in checking the note before signing. Code Visit OBSV E&M: 11061 Subsequent observation care L2
[2017-05-21 12:19] LABS: AST(SGOT) 18 U/L (15-37); Alanine Aminotransfer ALT/SGPT 19 U/L (13-56); Alkaline Phosphatase 58 U/L (45-117); Bilirubin, Direct 0.19 mg/dL (0.00-0.30); Globulin 2.8 g/dL (2.2-4.2); Lipase 140 U/L (73-393); Protein, Total 5.8 g/dL (6.4-8.2)
--- NOTE | 2017-05-21 14:10 | CHAPLAIN ---
Type of Pastoral Visit _x__ Initial Visit ___ Follow-up Visit ___ On-call Visit ___ General Patient Visit ___ Spiritual Assessment ___ Family Conference ___ Bereavement ___ Rapid Response ___ Code Blue ___ Other (describe below) Pastoral Care Referral From _x__ Patient ___ Family ___ Nurse ___ Physician ___ Supervisor Quality Control ___ Radio Board Operator ___ Other (describe below) Sacrament/Intervention _x__ Active listening ___ Anointing ___ Lutheran ___ Bereavement ___ Communion _x__ Arabella exploration ___ ___ Life review _x__ Prayer ___ Reconciliation ___ Sacrament of Sick ___ Supportive presence ___ Wedding ___ Other (describe below) Pastoral Comments patient requests call to her parish; call made
--- NOTE | 2017-05-21 15:01 | CASEMGMT ---
According to [employer] [facility] website, the following are in-network tertiary facilities: [facility], [place], [facility], [facility], [facility], [facility], and . Kali BARBOSA CM
--- NOTE | 2017-05-21 15:13 | CASEMGMT ---
This RN CM to room with LEVY form at this time. LEVY form explained at this time, pt voices understanding and signs form at this time. Original to chart and copy to pt. Pt states no further concerns/needs at this time. SStaten RN CM
[2017-05-21] MEDS: LORazepam 0.5 MG Tablet PO (21:30)
[2017-05-22] VITALS (19 sets, daily range): BP systolic 118–153; BP diastolic 57–66; PULSE 62–82; RESP 16–20; TEMP 36.2–37.2; O2SAT 96–99
[2017-05-22] MEDS: 0.9% Normal Saline 1,000 ML 50 ML IV ×2 (00:42→18:34)
[2017-05-22 05:52] LABS: Basophil# 0.02 X10^3/uL; Basophil% 0.5 % (0-1); Eosinophil# 0.18 X10^3/uL; Eosinophils% 4.4 % (0-5); Hematocrit 33.7 % (37-47); Hemoglobin 11.3 g/dl (12.0-15.0); International Normalized Ratio 1.1; Lymphocyte % 33.9 % (19-41); Mean Corp Hgb Conc 33.5 g/gl (32-36); Mean Corpuscular Hgb 31.1 pg (27.0-32.0); Mean Corpuscular Volume 92.8 fL (81-99); Mean Platelet Vol. 9.1 fl (6.2-12.0); Monocyte# 0.49 X10^3/uL; Monocyte% 11.9 % (0-10); Neutrophil # 2.04 X10^3/uL (2.7-7.7); Neutrophil % 49.3 % (47-70); Platelet Count 264 K/mm3 (150-450); RBC Distribution Width CV 13.9 % (11.6-14.6); RBC Distribution Width SD 45.3 fl (35.1-43.9); Red Blood Count 3.63 M/mm3 (4.2-5.4); White Blood Count 4.1 K/mm3 (4.4-11.0)
[2017-05-22 05:53] LABS: Partial Thromboplast Time 29.5 Seconds (24.1-36.2)
--- NOTE | 2017-05-22 05:55 | EKG12_ITS ---
Test Reason : AM EKG Blood Pressure : / mmHG Vent. Rate : 063 BPM Atrial Rate : 063 BPM P-R Int : 158 ms QRS Dur : 080 ms QT Int : 452 ms P-R-T Axes : 070 016 049 degrees QTc Int : 462 ms Normal sinus rhythm Normal ECG Confirmed by ABIOLA BOYCE, SAFIA ([id number]), index editor EM LANDA ([id number] on 05/26/2017 1:57:12 PM Referred By: DR MORIN Confirmed By:SAFIA CULVER MD
[2017-05-22 06:02] LABS: POSITIVE COUNT NO; POSITIVE DIFFERENTIAL NO; POSITIVE MORPHOLOGY NO
[2017-05-22 06:07] LABS: Anion Gap 6 (5-15); BUN 11 mg/dL (7-18); BUN/Creat Ratio 16.3 RATIO (10-20); Calcium,Total 8.5 mg/dL (8.5-10.1); Chloride 108 mmol/L (98-107); Creatinine, Serum 0.67 mg/dL (0.55-1.02); EST Glomerular Filtration Rate 89 mL/min (>60); Est Glom Filt Rate - Afr Amer 107 mL/min (>60); Estimated Creatinine Clearance 34.17 ml/min; Glucose 90 mg/dL (74-106); Potassium 3.9 mmol/L (3.5-5.1); Sodium Level 139 mmol/L (136-145)
[2017-05-22] MEDS: Isosorbide Mononitrate 60 MG Tablet PO (06:32)
[2017-05-22] MEDS: amLODIPine 2.5 MG Tablet PO (06:32)
[2017-05-22] MEDS: Amiodarone 200 MG Tablet PO (06:32)
[2017-05-22] MEDS: Clopidogrel Bisulfate 75 MG Tablet PO (06:32)
[2017-05-22] MEDS: Ramipril 10 MG Capsule PO ×2 (06:32→21:37)
[2017-05-22] MEDS: Aspirin 81 MG TAB.CHEW PO (06:32)
[2017-05-22] MEDS: Metoprolol(XL)Succ 50 MG Tablet PO (06:32)
--- NOTE | 2017-05-22 09:39 | CL.D_ITS ---
Patient Name: LANNY DIALLO I Study Date: 05/22/2017 Performing: Shawn Wilkinson MD Ht: 61.81 inches 157 cm : 1935 Wt: 110.23 lbs 50 kg Age: 81 Gender: female BSA: 1.48 PROCEDURE(S) PERFORMED GB51-BXN/COR/LV/CABG CLINICAL PROFILE AND INDICATIONS INDICATIONS: Unstable Angina Stress/Imaging Stress Test w/SPECT MPI: Yes Result: NegativeStress Test with SPECT MPI: Negative Angina Classification Anginal Classification w/in 2 Weeks: CCS IV CAD Presentations: Unstable angina. CONCLUSIONS Elevated Left Ventricular End Diastolic Pressure Normal LV size, wall motion,and systolic function LVEF: by LV gram 65 % [place] Multivessel CAD PRO to LAD: patent SVG to OM1: Stented and patent SVG to RPDA: patent Aortic Root dilated Aortic Valve Insufficiency Mild to Moderate Mitral Valve Insufficiency Mild to Moderate Left subclavian artery: ulcerated appearinig plaque Left vertebral artery: ostial appearing 75% stenosis RECOMMENDATIONS Risk factor modification Medical therapy Staged percutaneous intervention to the RPDA via the SVG to the RPDA: if the patient remains symptoma tic despite optimized medial therapy Consider further evaluation of the left subclavian artery and left vertebral artery with CTA if clini sharan indicated DESCRIPTION OF PROCEDURE The patient arrived to the procedure lab. The risks and benefits of the procedure as well as a full d escription of our services here and current unavailability of surgical backup were fully explained to the patient and/or their significant other prior to the catheterization. The Timeout was completed, verifying the correct patient and procedure. The patient's procedural site was prepped and draped in the usual fashion. Local anesthetic was given subcutaneously to right groin region with Lidocaine 2%. Using a modified Seldinger technique, arterial access was obtained via the right femoral artery, a 4 Fr sheath was inserted Left Coronary Artery selective angiography was performed in multiple views us ing a 4 Fr. JL5 catheter. Right Coronary Artery selective angiography was then performed in multiple views using a 4 Fr. 3DRC catheter. Saphenous Vein graft to the RCA selective angiography was performe d in multiple views using a 4 Fr. RCB catheter. Left internal mammary artery graft to the LAD selecti ve angiography was performed in multiple views using a 4 Fr. RCB catheter. Saphenous Vein graft to th e Circumflex selective angiography was performed in multiple views using a 4 Fr. LCB catheter. Left V entriculography was performed in DELUNA projection using a 4 Fr. Pigtail catheter. LV to AO pullback pre ssures were then recorded.The arterial sheath was pulled and manual compression applied until hemosta sis is achieved. CORONARY ANGIOGRAPHY DOMINANCE: Right Dominant LEFT HEART ASSESSMENT Left Ventricular Ejection Fraction: by LV Gram 65 % Normal LV wall motion Elevated Left Ventricular End Diastolic Pressure LVEDP: 23 mmHg LEFT MAIN: Mild luminal irregularities LEFT ANTERIOR DECENDING ARTERY: PROX LAD: Long: Diffuse: Irregular: Hazy: 95 % Stenosis MID LAD: is subtotally occluded with the mid to distal LAD filling from antegrade flow but predominan tly PRO graft flow with no angiographically significant appearing disease distal to the graft attach ment DIAGONAL 1: Proximal - Long: Diffuse: Irregular: Hazy 85 % Stenosis (small caliber vessel) CIRCUMFLEX ARTERY: MID CIRC: Long: Diffuse: Irregular: Hazy 75 % Stenosis OM 1: Proximal - is occluded with the remainder of the vessel filling from SVG graft flow with no ang iographically significant appearing disease distal to the graft attachment RIGHT CORONARY ARTERY: Diffuse: Irregular: Hazy: 50-75 % Stenosis DISTAL RCA: 95 % Stenosis RT PDA: Mid - 50-75 % Stenosis: filling from both antegrade flow but predominantly from SVG graft ellie w with the 50-75% stenosis distal to the graft attachment GRAFTS: PRO graft to the Mid LAD is patent Saphenous Vein graft to the RPDA is patent Saphenous Vein graft to the 1st OM previously placed stent is patent VALVE FINDINGS: Aortic Valve Insufficiency: Grade 1 - Grade 2 Mitral Valve Insufficiency - Grade 1 - Grade 2 AORTIC ROOT: Dilated COMPLICATIONS No Complications PROCEDURE MEDICATIONS Versed 1 mg IV Oxygen: 2 L/min via nasal cannula SUMMARY OF HEMODYNAMIC DATA Time AIR REST ECG 07:58:10 AO 162/73 (108) SA 08:21:06 LV 174/-8, 23 08:51:43 LV 154/-6, 19 08:51:49 LV 171/0, 22 08:52:55 LVp 171/0, 28 08:53:01 AOp 175/71 (112) 08:53:06 AOp 160/61 (100) 09:02:35 Signed By Shawn Wilkinson MD On 05/22/2017 09:38:44 Shawn Wilkinson MD
[2017-05-22] MEDS: Pantoprazole Sodium 40 MG Tablet PO (10:53)
--- NOTE | 2017-05-22 11:00 | PCM.PROGNOTE ---
<Dimitry Verduzco - Last Filed: 05/22/17 11:00> Patient Problems: Active and Suspected Problems (Last Updated 05/20/17 @ 08:38 by Emperatriz Cazares) Chest pain (Acute) Subjective: Pt has no further chest pain or heaviness - prior she had heaviness in her left chest and discomfort in her left shoulder and arm. No SOB. No N/V. Some abdominal discomfort with breakfast, however she has not had her protonix yet. She has no dysuria, constipation, or diarrhea. She is resting comfortably in bed post cath. - Physical Exam General: Alert, Oriented x3, Cooperative HEENT: Atraumatic, PERRLA, EOMI, Normocephalic Neck: Supple, No JVD, Negative Carotid Bruits Lungs: Clear to auscultation, Normal air movement Cardiovascular: Regular rate, No murmurs Abdomen: Bowel Sounds Present, Soft, Tender - mid epigastric mild tenderness to moderate palp. Extremities: No edema, Capillary Refill Less than 3 Seconds Skin: No rashes, No breakdown Musculoskeletal: No Tenderness to Palpation of Joints or Extremities Neurological: Cranial nerves II-XII grossly intact Psych/Mental Status: Normal Affect, Appropriate, Alert and oriented to time, place, person, mood and affect Vital Signs Temp Pulse Resp BP Pulse Ox 97.7 F L 68 17 118/58 L 98 05/22/17 10:45 05/22/17 10:45 05/22/17 10:45 05/22/17 10:45 05/22/17 10:45 Oxygen Delivery Method Room Air Weight: 49.9 kg Body Mass Index (BMI) 20.1 Intake and Output for Last 24 Hours 05/20/17 05/21/17 05/22/17 23:59 23:59 23:59 Intake Total 320 / 320 2186 / 2186 675 / 675 Output Total 1300 / 1300 Balance 320 / 320 886 / 886 675 / 675 Laboratory Tests Past 24 Hrs 05/21/17 05/22/17 05/22/17 02:55 05:10 05:10 WBC 4.1 L RBC 3.63 L Hgb 11.3 L Hct 33.7 L MCV 92.8 MCH 31.1 MCHC 33.5 RDW 13.9 RDW Differential 45.3 H Plt Count 264 MPV 9.1 Immature Gran % (Auto) 0.000 Neut % (Auto) 49.3 Lymph % (Auto) 33.9 [place] % (Auto) 11.9 H Eos % (Auto) 4.4 Baso % (Auto) 0.5 Absolute Neuts (auto) 2.0 Absolute Lymphs (auto) 1.40 Total Counted Not Reportable PT 14.0 INR 1.1 APTT 29.5 Sodium Potassium Chloride Carbon Dioxide Anion Gap BUN Creatinine Estim Creat Clear Calc Est GFR (MDRD) Af Amer Est GFR (MDRD) Non-Af BUN/Creatinine Ratio Glucose Calcium Total Bilirubin 0.70 Direct Bilirubin 0.19 AST 18 ALT 19 Alkaline Phosphatase 58 Total Protein 5.8 L Albumin 3.0 L Globulin 2.8 Lipase 140 05/22/17 05:10 WBC RBC Hgb Hct MCV MCH MCHC RDW RDW Differential Plt Count MPV Immature Gran % (Auto) Neut % (Auto) Lymph % (Auto) [place] % (Auto) Eos % (Auto) Baso % (Auto) Absolute Neuts (auto) Absolute Lymphs (auto) Total Counted PT INR APTT Sodium 139 Potassium 3.9 Chloride 108 H Carbon Dioxide 25.0 Anion Gap 6 BUN 11 Creatinine 0.67 Estim Creat Clear Calc 34.17 Est GFR (MDRD) Af Amer 107 Est GFR (MDRD) Non-Af 89 BUN/Creatinine Ratio 16.3 Glucose 90 Calcium 8.5 Total Bilirubin Direct Bilirubin AST ALT Alkaline Phosphatase Total Protein Albumin Globulin Lipase Assessment/Plan Active and Suspected Problems (Last Updated 05/20/17 @ 08:38 by Emperatriz Cazares) Chest pain (Acute) 1. Chest pain - Dr. Wilkinson following. S/p cath today - no intervention. Imdur increased and norvasc started. Pt stable currently no further CP, arm pain, SOB. EKG neg. Troponin neg x 4 no events on tele. 2. CAD - s/p CABG/PTCA. Asa, BB, imdur. Intolerant of statins 3. Chronic diastolic CHF - no signs of CHF, no respiratory complaints. 4. PAF - Currently SR. amio, beta danica, eliquis held for cath. Restart tomorrow 5. PVD - asa 6. HTN - improved. 7. Anx - home meds 8. GERD - on PPI DVT ppx: SCDs DC planning: likely home tomorrow if ok per cardiology who would like to monitor overnight after the adjustment of medications post cath. This patient was seen by Dimitry Verduzco PA-C under the supervision of Doctor Dakotah. <DakotahAsia E - Last Filed: 05/22/17 13:03> - Physical Exam Vital Signs Temp Pulse Resp BP Pulse Ox 97.6 F L 69 18 119/57 L 98 05/22/17 12:15 05/22/17 12:15 05/22/17 12:15 05/22/17 12:15 05/22/17 12:15 Oxygen Delivery Method Room Air Weight: 110 lb 0.171 oz Body Mass Index (BMI) 20.1 Intake and Output for Last 24 Hours 05/20/17 05/21/17 05/22/17 23:59 23:59 23:59 Intake Total 320 / 320 2186 / 2186 1039 / 1039 Output Total 1300 / 1300 600 / 600 Balance 320 / 320 886 / 886 439 / 439 Laboratory Tests Past 24 Hrs 05/22/17 05/22/17 05/22/17 05:10 05:10 05:10 WBC 4.1 L RBC 3.63 L Hgb 11.3 L Hct 33.7 L MCV 92.8 MCH 31.1 MCHC 33.5 RDW 13.9 RDW Differential 45.3 H Plt Count 264 MPV 9.1 Immature Gran % (Auto) 0.000 Neut % (Auto) 49.3 Lymph % (Auto) 33.9 [place] % (Auto) 11.9 H Eos % (Auto) 4.4 Baso % (Auto) 0.5 Absolute Neuts (auto) 2.0 Absolute Lymphs (auto) 1.40 Total Counted Not Reportable PT 14.0 INR 1.1 APTT 29.5 Sodium 139 Potassium 3.9 Chloride 108 H Carbon Dioxide 25.0 Anion Gap 6 BUN 11 Creatinine 0.67 Estim Creat Clear Calc 34.17 Est GFR (MDRD) Af Amer 107 Est GFR (MDRD) Non-Af 89 BUN/Creatinine Ratio 16.3 Glucose 90 Calcium 8.5 Assessment/Plan Hospitalist note: I am seeing this patient in conjunction with Dimitry Verduzco. I independently seen and examined the patient. Progress note above reviewed. I agree with the above treatment plan. Patient underwent cardiac catheterization findings reviewed, no acute findings and no intervention is done. She denies any chest pain this morning. Vital signs are stable. - Physical Exam General: Alert, Oriented x3, Cooperative, No apparent distress. HEENT: Atraumatic, PERRLA, EOMI. Neck: Supple, No JVD, Negative Carotid Bruits, Trachea Midline, Thyroid Normal. Lungs: Clear to auscultation, Normal air movement, No rhonchi, No wheeze, No rales. Cardiovascular: Regular rate, Regular Rhythm, Normal S1, Normal S2, PMI Normal. Abdomen: Bowel Sounds Present, Soft, Non Tender, Non-Distended, No Hepato-splenomegaly. Extremities: No clubbing, No cyanosis, No edema Skin: No rashes, No breakdown Neurological: Neuro grossly intact Vital Signs are stable. Assessment and plan: #1 atypical chest pain/angina pectoris. Status post cardiac catheterization, no new findings and no acute disease, patent grafts. No interventions done. Vital signs are stable. She is on aspirin, metoprolol, Altace, started on isosorbide mononitrate and Norvasc. Plan to continue same treatment. #2 chronic medical problems: CAD status post CABG and stents, chronic diastolic CHF, paroxysmal A. fib, PVD, hypertension, hyperlipidemia, GERD: Stable, continue current medications as above. This note was generated with Klick2[employer] dictation software. It may contain incorrect words, spelling, and punctuation that were not noted in checking the note before signing. Code Visit Inpatient E&M: 35389 Subs Hosp L2
--- NOTE | 2017-05-22 14:29 | PCM.PN.CARD ---
Subjectve: She underwent diagnostic cardiac catheterization earlier this day. She has had no new acute events. Objective: Vital Signs Temp Pulse Resp BP Pulse Ox 98.3 F 78 18 125/58 H 98 05/22/17 13:15 05/22/17 13:15 05/22/17 13:15 05/22/17 13:15 05/22/17 13:15 Oxygen Delivery Method Room Air Weight: 110 lb 0.171 oz Body Mass Index (BMI) 20.1 Intake and Output for Last 24 Hours 05/20/17 05/21/17 05/22/17 23:59 23:59 23:59 Intake Total 320 / 320 2186 / 2186 1039 / 1039 Output Total 1300 / 1300 600 / 600 Balance 320 / 320 886 / 886 439 / 439 General: Awake, Alert, Oriented x 3, Cooperative, No Acute Distress Neck: No JVD Lungs: Clear to auscultation Cardiovascular: Regular Rhythm, Irregular Rhythm Murmur Murmur: Grade 2/6, Harsh, Mid Systolic, LLSB, LVOT, Sternal Notch, - - 2/6 soft diastolic murmur at the lower left sternal border Vascular: Normal Femoral Pulses Abdomen: Bowel Sounds Present, Soft, Non Tender 05/22/17 05:10: WBC 4.1 L, RBC 3.63 L, Hgb 11.3 L, Hct 33.7 L, MCV 92.8, MCH 31.1, MCHC 33.5, RDW 13.9, RDW Differential 45.3 H, Plt Count 264, MPV 9.1, Immature Gran % (Auto) 0.000, Neut % (Auto) 49.3, Lymph % (Auto) 33.9, Allen % (Auto) 11.9 H, Eos % (Auto) 4.4, Baso % (Auto) 0.5, Absolute Neuts (auto) 2.0, Total Counted Not Reportable 05/22/17 05:10: PT 14.0, INR 1.1, APTT 29.5 05/22/17 05:10: Sodium 139, Potassium 3.9, Chloride 108 H, Carbon Dioxide 25.0, Anion Gap 6, BUN 11, Creatinine 0.67, Est GFR (MDRD) Af Amer 107, Est GFR (MDRD) Non-Af 89, BUN/Creatinine Ratio 16.3, Glucose 90, Calcium 8.5 Rhythm: Sinus rhythm EKG: Sinus rhythm Cardiac Cath: Please see official report Assessment/Plan 1. Chest pain The patient has undergone further evaluation of her chest discomfort. Her cardiac enzymes have been negative. Her ECG is demonstrated no new acute changes. She also underwent diagnostic cardiac catheterization. Her cardiac catheterization revealed her [place] multivessel disease and patent grafts to the LAD, OM, and RCA systems. In comparison to her previous cardiac catheterization from 2014 there appeared to be no angiographically significant appearing change with respect to her [place] vessels or graft vessels. Thus, there is concern that her chest discomfort may be related to her hypertension as well as episodes of her atrial dysrhythmia with rapid ventricular response superimposed upon her underlying CAD process. 2. CAD status post CABG and status post PCI Again, she is undergone evaluation as noted above. Based upon her findings superimposed upon her recent negative pharmacologic stress nuclear imaging study it was not elected, at this time, to proceed with any attempts at catheter based revascularization of her right PDA system via her SVG graft to the right PDA. However, if after optimizing her medications with respect to her blood pressure and her atrial dysrhythmia and her coronary artery disease, etc., she continues with symptoms concerning for angina pectoris then consideration would be given to an attempt at percutaneous intervention of her right PDA via her SVG graft to the right PDA. Thus her medications will be adjusted. She will continue aspirin therapy. Her nitrates will be increased. She will continue beta-danica therapy. She is on PEACE inhibitor therapy. She will eventually resume her anticoagulant therapy. She is not on a statin due to statin intolerance in the past. 3. 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 This will need to be followed by history, exam, and echocardiographic studies as deemed appropriate. 4. Chronic diastolic mediated CHF The patient does have history of chronic diastolic mediated CHF. She appears to be without acute symptoms at this time. She will continue combined medical management and follow-up. 5. Thoracic aortic aneurysm The does have a history of an underlying thoracic aortic aneurysm. Based upon her previous studies it was described as mild. Has been reassessed and the results are as noted above. 6. Hyperlipidemia She will continue lipid-lowering therapy as deemed appropriate. 7. Hypertension Antihypertensive therapy has been adjusted. She has been placed on amlodipine therapy. Her blood pressures will be followed. Patient's case was discussed and reviewed with Edilberto Berkowitz MD of the interventional section of the [facility] area and he agreed with the aforementioned evaluation and care plan. This note was generated with [employer] Dictation software. Every effort was made to ensure accuracy, however, computerized head of sales and marketing mistakes may persist.
[2017-05-22] MEDS: Mag Hydrox/Al Hydrox/Simeth 30 ML UDC 15 ML PO (14:32)
--- NOTE | 2017-05-22 14:34 | PN.CARD_ITS ---
Subjectve: She underwent diagnostic cardiac catheterization earlier this day. She has had no new acute events. Objective: Vital Signs Temp Pulse Resp BP Pulse Ox 98.3 F 78 18 125/58 H 98 05/22/17 13:15 05/22/17 13:15 05/22/17 13:15 05/22/17 13:15 05/22/17 13:15 Oxygen Delivery Method Room Air Weight: 110 lb 0.171 oz Body Mass Index (BMI) 20.1 Intake and Output for Last 24 Hours 05/20/17 05/21/17 05/22/17 23:59 23:59 23:59 Intake Total 320 / 320 2186 / 2186 1039 / 1039 Output Total 1300 / 1300 600 / 600 Balance 320 / 320 886 / 886 439 / 439 General: Awake, Alert, Oriented x 3, Cooperative, No Acute Distress Neck: No JVD Lungs: Clear to auscultation Cardiovascular: Regular Rhythm, Irregular Rhythm Murmur Murmur: Grade 2/6, Harsh, Mid Systolic, LLSB, LVOT, Sternal Notch, - - 2/6 soft diastolic murmur at the lower left sternal border Vascular: Normal Femoral Pulses Abdomen: Bowel Sounds Present, Soft, Non Tender 05/22/17 05:10: WBC 4.1 L, RBC 3.63 L, Hgb 11.3 L, Hct 33.7 L, MCV 92.8, MCH 31.1, MCHC 33.5, RDW 13.9, RDW Differential 45.3 H, Plt Count 264, MPV 9.1, Immature Gran % (Auto) 0.000, Neut % (Auto) 49.3, Lymph % (Auto) 33.9, [place] % ( Auto) 11.9 H, Eos % (Auto) 4.4, Baso % (Auto) 0.5, Absolute Neuts (auto) 2.0, Total Counted Not Reportable 05/22/17 05:10: PT 14.0, INR 1.1, APTT 29.5 05/22/17 05:10: Sodium 139, Potassium 3.9, Chloride 108 H, Carbon Dioxide 25.0, Anion Gap 6, BUN 11, Creatinine 0.67, Est GFR (MDRD) Af Amer 107, Est GFR (MDRD ) Non-Af 89, BUN/Creatinine Ratio 16.3, Glucose 90, Calcium 8.5 Rhythm: Sinus rhythm EKG: Sinus rhythm Cardiac Cath: Please see official report Assessment/Plan 1. Chest pain The patient has undergone further evaluation of her chest discomfort. Her cardiac enzymes have been negative. Her ECG is demonstrated no new acute changes. She also underwent diagnostic cardiac catheterization. Her cardiac catheterization revealed her [place] multivessel disease and patent grafts to the LAD, OM, and RCA systems. In comparison to her previous cardiac catheterization from 2014 there appeared to be no angiographically significant appearing change with respect to her [place] vessels or graft vessels. Thus, there is concern that her chest discomfort may be related to her hypertension as well as episodes of her atrial dysrhythmia with rapid ventricular response superimposed upon her underlying CAD process. 2. CAD status post CABG and status post PCI Again, she is undergone evaluation as noted above. Based upon her findings superimposed upon her recent negative pharmacologic stress nuclear imaging study it was not elected, at this time, to proceed with any attempts at catheter based revascularization of her right PDA system via her SVG graft to the right PDA. However, if after optimizing her medications with respect to her blood pressure and her atrial dysrhythmia and her coronary artery disease, etc., she continues with symptoms concerning for angina pectoris then consideration would be given to an attempt at percutaneous intervention of her right PDA via her SVG graft to the right PDA. Thus her medications will be adjusted. She will continue aspirin therapy. Her nitrates will be increased. She will continue beta-danica therapy. She is on PEACE inhibitor therapy. She will eventually resume her anticoagulant therapy. She is not on a statin due to statin intolerance in the past. 3. 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 This will need to be followed by history, exam, and echocardiographic studies as deemed appropriate. 4. Chronic diastolic mediated CHF The patient does have history of chronic diastolic mediated CHF. She appears to be without acute symptoms at this time. She will continue combined medical management and follow-up. 5. Thoracic aortic aneurysm The does have a history of an underlying thoracic aortic aneurysm. Based upon her previous studies it was described as mild. Has been reassessed and the results are as noted above. 6. Hyperlipidemia She will continue lipid-lowering therapy as deemed appropriate. 7. Hypertension Antihypertensive therapy has been adjusted. She has been placed on amlodipine therapy. Her blood pressures will be followed. Patient's case was discussed and reviewed with Edilberto Berkowitz MD of the interventional section of the [facility] area and he agreed with the aforementioned evaluation and care plan. This note was generated with [employer] Dictation software. Every effort was made to ensure accuracy, however, computerized assistant infant toddler teacher mistakes may persist.
[2017-05-22] MEDS: Ondansetron 4 MG/2 ML Vial IV (16:19)
[2017-05-22] MEDS: 0.9% NaCl Peripheral Flush Adult/Peds IV (16:20)
[2017-05-22] MEDS: Acetaminophen 325 MG Tablet 650 MG PO (18:33)
[2017-05-22] MEDS: LORazepam 0.5 MG Tablet PO (21:37)
[2017-05-23] VITALS (7 sets, daily range): BP systolic 123–137; BP diastolic 59–62; PULSE 75–86; RESP 16–18; TEMP 37.2–37.4; O2SAT 94–97
[2017-05-23 05:34] LABS: Absolute Lymphocyte Count 0.84 X10^3/ul (0.83-4.51); Absolute Neutrophil Count 4.4 X10^3/uL (2.0-7.7); Basophil# 0.01 X10^3/uL; Basophil% 0.2 % (0-1); Eosinophil# 0.11 X10^3/uL; Eosinophils% 1.9 % (0-5); Hematocrit 34.8 % (37-47); Hemoglobin 11.8 g/dl (12.0-15.0); Lymphocyte # 0.84 X10^3/ul (4.0); Lymphocyte % 14.6 % (19-41); Mean Corp Hgb Conc 33.9 g/gl (32-36); Mean Corpuscular Hgb 31.5 pg (27.0-32.0); Mean Corpuscular Volume 92.8 fL (81-99); Mean Platelet Vol. 9.3 fl (6.2-12.0); Monocyte% 6.9 % (0-10); Neutrophil # 4.38 X10^3/uL (2.7-7.7); Neutrophil % 76.1 % (47-70); Platelet Count 250 K/mm3 (150-450); Red Blood Count 3.75 M/mm3 (4.2-5.4); White Blood Count 5.8 K/mm3 (4.4-11.0)
[2017-05-23 05:38] LABS: POSITIVE COUNT NO; POSITIVE DIFFERENTIAL NO; POSITIVE MORPHOLOGY NO
[2017-05-23 05:47] LABS: Anion Gap 11 (5-15); BUN 20 mg/dL (7-18); BUN/Creat Ratio 28.2 RATIO (10-20); Calcium,Total 8.1 mg/dL (8.5-10.1); Chloride 106 mmol/L (98-107); Creatinine, Serum 0.71 mg/dL (0.55-1.02); EST Glomerular Filtration Rate 84 mL/min (>60); Est Glom Filt Rate - Afr Amer 102 mL/min (>60); Estimated Creatinine Clearance 34.17 ml/min; Glucose 102 mg/dL (74-106); Potassium 3.8 mmol/L (3.5-5.1); Sodium Level 139 mmol/L (136-145)
[2017-05-23] MEDS: Aspirin 81 MG TAB.CHEW PO (08:36)
--- NOTE | 2017-05-23 09:10 | RAD_ITS ---
STUDY: X-RAY - ABDOMEN/PELVIS REASON FOR EXAM: Female, 81 years old. Abdominal pain. TECHNIQUE: Single AP view of the abdomen / pelvis. COMPARISON: None. FINDINGS: There is an unremarkable bowel gas pattern. Calcifications are seen overlying the lower pole calyx of the left kidney suggestive of a intrarenal calculi. The largest measures 9.1 mm and is in the mid pole calyx. Normal soft tissue structures. There are diffuse degenerative changes of the visualized lumbar spine. Presents for prior laminectomy and interventricular screw fixation at the L3-L4 and L4-L5 levels. RAD/Abdomen Single View IMPRESSION: Nonspecific bowel gas pattern. Electronically Signed: Mariusz Alarcon MD at 9:41 EST Tel [phone], Service support ,
[2017-05-23] MEDS: Metoprolol(XL)Succ 50 MG Tablet PO (10:08)
[2017-05-23] MEDS: Amiodarone 200 MG Tablet PO (10:08)
[2017-05-23] MEDS: Pantoprazole Sodium 40 MG Tablet PO (10:08)
[2017-05-23] MEDS: amLODIPine 5 MG Tablet PO (10:09)
[2017-05-23] MEDS: Ramipril 10 MG Capsule PO (10:09)
[2017-05-23] MEDS: Ondansetron 4 MG/2 ML Vial IV (10:47)
[2017-05-23] MEDS: 0.9% NaCl Peripheral Flush Adult/Peds IV (10:49)
--- NOTE | 2017-05-23 11:37 | PCM.DC ---
- Discharge Diagnoses Current Active Problems: Current Active and Chronic Problems (Last Updated 05/20/17 @ 08:38 by Emperatriz Cazares) Chest pain (Acute) You will use the following diet at home:: Cardiac Your food should be the consistency of: Regular Your liquids should be the consistency of: Regular/Thin Discharge Activity: Return to Normal Activity Allergies/Adverse Reactions: Allergies alendronate sodium [From Fosamax] Allergy (Verified 05/15/17 12:44) Unknown atorvastatin calcium [From Lipitor] Allergy (Verified 05/15/17 12:44) Unknown colestipol HCl [From Colestid] Allergy (Verified 05/15/17 12:44) Unknown cortisone acetate [From Cortone] Allergy (Verified 05/15/17 12:44) Unknown ezetimibe [From Zetia] Allergy (Verified 05/15/17 12:44) Unknown gabapentin Allergy (Verified 05/15/17 12:44) Unknown goserelin acetate [From Zoladex] Allergy (Verified 05/15/17 12:44) Unknown nabumetone Allergy (Verified 05/15/17 12:44) Other paroxetine HCl [From Paxil] Allergy (Verified 05/15/17 12:44) Unknown rosuvastatin calcium [From Crestor] Allergy (Verified 05/15/17 12:44) Unknown sertraline HCl [From Zoloft] Allergy (Verified 05/15/17 12:44) Unknown venlafaxine HCl [From Effexor] Allergy (Verified 05/15/17 12:44) Unknown acetaminophen [From Vicodin] Adverse Reaction (Verified 05/15/17 12:44) KEEPS ME AWAKE carvedilol Adverse Reaction (Verified 05/15/17 12:44) Unknown hydrocodone bitartrate [From Vicodin] Adverse Reaction (Verified 05/15/17 12:44) KEEPS ME AWAKE Medications to take at Discharge Aspirin [Aspirin, Baby] 81 mg PO DAILY@0800 03/28/15 Calcium Carbonate [Calcium] 600 mg PO DAILY 03/28/15 Lorazepam [Ativan] 0.5 mg PO DAILY PRN 03/28/15 Nitroglycerin [Nitrostat] 0.4 mg SUBLINGUAL Q5M PRN 03/28/15 [place]-3 Fatty Acids [Fish Oil] 1,000 mg PO DAILY 03/28/15 Ramipril [Altace] 10 mg PO BID #60 cap 03/29/15 Omeprazole [Prilosec] 40 mg PO DAILY 05/16/16 Apixaban [Eliquis] 2.5 mg PO BID 05/20/17 Amiodarone HCl [Cordarone] 200 mg PO DAILY tablet 05/23/17 Amlodipine [Norvasc] 5 mg PO DAILY #30 tab 05/23/17 Isosorbide Mononitrate [Imdur] 120 mg PO DAILY #30 tab 05/23/17 Metoprolol(XL)Succ [Toprol Xl (Beta Jt)] 50 mg PO DAILY tablet 05/23/17 The following prescriptions were given: Amlodipine [Norvasc] 5 mg PO DAILY #30 tab Isosorbide Mononitrate [Imdur] 120 mg PO DAILY #30 tab Primary Care Physician: Rachel Bernabe DO [Primary Care Provider] - Please follow up with your Primary Care Physician in: 1-2 weeks Please Follow Up With: Shawn Wilkinson MD When: 2 weeks Proposed Discharge Date: 05/23/17
--- NOTE | 2017-05-23 12:16 | DS.PCM_ITS ---
<Dimitry Verduzco - Last Filed: 05/23/17 12:08> Discharge Date and Diagnosis Date of Admission: 05/20/17 Date of Discharge: 05/22/17 - Primary Discharge Diagnosis Active and Suspected Problems (Last Updated 05/20/17 @ 08:38 by Emperatriz Cazares) Chest pain (Acute) -Angina HTN CAD Paroxysmal atrial fibrillation Chronic diastolic congestive heart failure Thoracic aortic aneurysm Hyperlipidemia GERD Anxiety - Secondary Discharge Diagnosis Chronic Problems (Last Updated 05/20/17 @ 08:38 by Emperatriz Cazares) Atherosclerosis of coronary artery bypass graft without angina pectoris (Chronic ) PRO to LAD< SVG to distal L CFX, SVG to RCA 2009 History of percutaneous transluminal coronary angioplasty (Chronic) PTCA/stent to SVG of OM2 11/13/2011, 03/25/12 Aortic insufficiency (Chronic) Mild Ascending aortic aneurysm (Chronic) Aortic Root Family history of premature coronary heart disease (Chronic) Male < 55 Chronic insomnia (Chronic) Carotid bruit (Chronic) Left Benign essential hypertension (Chronic) Coronary atherosclerosis of [place] coronary artery (Chronic) status post CABG and stent. HLD (hyperlipidemia) (Chronic) Osteoarthritis (Chronic) Biatrial enlargement (Chronic) Atrial fibrillation (Chronic) S/P CABG x 3 (Chronic) PRO to LAD, SVG to distal L CFX, SVG to RCA 2009 S/P PTCA (percutaneous transluminal coronary angioplasty) (Chronic) PVD (peripheral vascular disease) (Chronic) Mitral valve regurgitation (Chronic) Aortic valve disorder (Chronic) Anemia (Chronic) Diastolic CHF, chronic (Chronic) Thoracic aortic aneurysm (Chronic) Hospital Course and Treatment Imaging Results: 05/23/17 09:10 KUB [Abdomen Single View] [RAD] Stat [place] - cardiology Operations: None Procedures: Cardiac catheterization Summary of Care Provided: Physical exam on day of discharge: General: Resting comfortably NAD Psych: A/Ox3 normal affect HEENT: [place] AT NC Neck: Supple NT CV: RRR no m/t/r/g/h Resp: CTA Abd: [id number] mild midepigastric abdominal tenderness no guarding or rigidity Ext: DP2+= no edema Skin: W/D normal turgor Lymph/Heme: No active bleeding or adenopathy Neuro: CN2-12 intact Hospital course: The patient is a 81 year old F with a history of paroxysmal atrial fibrillation , CAD, hypertension, thoracic aortic aneurysm, diastolic congestive heart failure who was recently admitted to the hospital with chest pain for which she underwent a stress test which was negative, diagnosed with atrial fibrillation and placed on amiodarone and Eliquis, who re-presented to the hospital with chest pain. Cardiology was consulted. The patient was admitted and placed on telemetry. She had negative troponin and negative EKG. Chest x-ray demonstrated no acute abnormality and CT of the chest demonstrated ectasia of the ascending aorta measuring 4 cm in maximal dimension. Her blood pressure was poorly controlled with systolic reading into the 190 range. She underwent a cardiac catheterization however no intervention was done, medical therapy was recommended. Her Imdur dose was increased and she was started on Norvasc. Her other medications were continued. Her chest pain resolved after cardiac catheterization. She developed some diarrhea and midepigastric abdominal pain, C. difficile was checked and was negative and a KUB was negative. She had no fever or white count and her electrolytes remained stable. She tolerated p.o. intake. She remained in stable condition on her new medication doses and was discharged home to follow-up with her PCP and with cardiology. This patient was seen by Dimitry Verduzco PA-C under the supervision of Doctor Claire. [] Discharge Diet: Low fat/ Low Cholesterol, 2000 mg Sodium Diet Discharge Activity: Return to Normal Activity Home Medications: Medications to take at Discharge Aspirin [Aspirin, Baby] 81 mg PO DAILY@0800 03/28/15 Calcium Carbonate [Calcium] 600 mg PO DAILY 03/28/15 Lorazepam [Ativan] 0.5 mg PO DAILY PRN 03/28/15 [place]-3 Fatty Acids [Fish Oil] 1,000 mg PO DAILY 03/28/15 Ramipril [Altace] 10 mg PO BID #60 cap 03/29/15 Omeprazole [Prilosec] 40 mg PO DAILY 05/16/16 Apixaban [Eliquis] 2.5 mg PO BID 05/20/17 Amiodarone HCl [Cordarone] 200 mg PO DAILY tablet 05/23/17 Amlodipine [Norvasc] 5 mg PO DAILY #30 tab 05/23/17 Isosorbide Mononitrate [Imdur] 120 mg PO DAILY #30 tab 05/23/17 Metoprolol(XL)Succ [Toprol Xl (Beta Jt)] 50 mg PO DAILY tablet 05/23/17 Nitroglycerin [Nitrostat] 0.4 mg SUBLINGUAL Q5M PRN #6 tab 05/23/17 Following Prescrptions Were Given to Patient: Amlodipine [Norvasc] 5 mg PO DAILY #30 tab Isosorbide Mononitrate [Imdur] 120 mg PO DAILY #30 tab Nitroglycerin [Nitrostat] 0.4 mg SUBLINGUAL Q5M PRN #6 tab PRN Reason: Chest Pain Primary Care Physician: Rachel Bernabe DO [Primary Care Provider] - Please follow up with your Primary Care Physician in: 1-2 weeks Please Follow Up With: Shawn Wilkinson MD When: 2 weeks Please Follow Up With: Rachel Bernabe DO When: 1-2 weeks Disposition: Home Minutes spent on discharge:: 35 Patient Condition:: Stable Meaningful Use Info Meaningful Use Diagnoses (Choose all that apply): None applicable <Asia Claire E - Last Filed: 05/24/17 10:14> Discharge Date and Diagnosis - Secondary Discharge Diagnosis Chronic Problems (Last Updated 05/20/17 @ 08:38 by Emperatriz Cazares) Atherosclerosis of coronary artery bypass graft without angina pectoris (Chronic ) PRO to LAD< SVG to distal L CFX, SVG to RCA 2009 History of percutaneous transluminal coronary angioplasty (Chronic) PTCA/stent to SVG of OM2 11/13/2011, 03/25/12 Aortic insufficiency (Chronic) Mild Ascending aortic aneurysm (Chronic) Aortic Root Family history of premature coronary heart disease (Chronic) Male < 55 Chronic insomnia (Chronic) Carotid bruit (Chronic) Left Benign essential hypertension (Chronic) Coronary atherosclerosis of [place] coronary artery (Chronic) status post CABG and stent. HLD (hyperlipidemia) (Chronic) Osteoarthritis (Chronic) Biatrial enlargement (Chronic) Atrial fibrillation (Chronic) S/P CABG x 3 (Chronic) PRO to LAD, SVG to distal L CFX, SVG to RCA 2009 S/P PTCA (percutaneous transluminal coronary angioplasty) (Chronic) PVD (peripheral vascular disease) (Chronic) Mitral valve regurgitation (Chronic) Aortic valve disorder (Chronic) Anemia (Chronic) Diastolic CHF, chronic (Chronic) Thoracic aortic aneurysm (Chronic) Hospital Course and Treatment Imaging Results: 05/23/17 09:10 KUB [Abdomen Single View] [RAD] Stat Summary of Care Provided: Hospitalist note: Discharge summary above reviewed as well as physical examination and I agree with above discharge plan. Patient admitted because of chest pain which has been recurrent. She had a recent admission for the same complaint and she had stress test that was negative for stress-induced myocardial ischemia. Patient readmitted again the same complaint. Her EKG was negative for acute ischemic changes. Troponin was negative. She underwent cardiac catheterization that revealed patent bypass grafts with normal ejection fraction and no evidence of acute lesions. Her medication was adjusted by cardiology, Imdur was increased. Because of this recurrent chest pain as well as history of thoracic aortic aneurysm, CTA chest done and showed no evidence of PE or dissection. Patient complained of diarrhea and her stool was positive for norovirus. Was not left. Her vital signs remained stable. Her routine blood work was unremarkable. Also, patient complains of vague abdominal pain. Abdominal x-ray done and showed no acute findings. She denied constipation or diarrhea. There was no evidence of UTI. Her LFT and lipase were normal. Patient discharged home in a stable medical condition, discharged on her chronic home medication without any changes including Eliquis for anticoagulation, recommended follow-up with PCP in 1 week and follow-up with cardiology in 2 weeks. . Minutes spent on discharge:: 25 Code Visit OBSV E&M: [id number] Observation care discharge
--- NOTE | 2017-05-23 13:01 | PCM.PN.CARD ---
Subjectve: The patient was evaluated earlier this day. She denied ongoing chest discomfort, worsening shortness of breath, or palpitations. Her main concern was loose bowel movements. Objective: Vital Signs Temp Pulse Resp BP Pulse Ox 99.4 F H 83 17 137/62 H 94 05/23/17 08:30 05/23/17 11:00 05/23/17 08:30 05/23/17 08:30 05/23/17 08:30 Oxygen Delivery Method Room Air Weight: 110 lb 0.171 oz Body Mass Index (BMI) 20.1 Intake and Output for Last 24 Hours 05/21/17 05/22/17 05/23/17 23:59 23:59 23:59 Intake Total 2186 / 2186 2150 / 2150 438 / 438 Output Total 1300 / 1300 850 / 850 Balance 886 / 886 1300 / 1300 438 / 438 General: Awake, Alert, Oriented x 3, Cooperative, No Acute Distress Neck: No JVD Lungs: Clear to auscultation Cardiovascular: Regular Rhythm, Normal S1, Normal S2 Murmur Murmur: Grade 2/6, Harsh, Mid Systolic, LLSB, LVOT, Sternal Notch, - - 2/6 soft diastolic murmur at the lower left sternal border Vascular: Normal Femoral Pulses Abdomen: Bowel Sounds Present, Soft Extremities: No edema 05/23/17 05:00: Sodium 139, Potassium 3.8, Chloride 106, Carbon Dioxide 22.0, Anion Gap 11, BUN 20 H, Creatinine 0.71, Est GFR (MDRD) Af Amer 102, Est GFR (MDRD) Non-Af 84, BUN/Creatinine Ratio 28.2 H, Glucose 102, Calcium 8.1 L 05/23/17 05:00: WBC 5.8, RBC 3.75 L, Hgb 11.8 L, Hct 34.8 L, MCV 92.8, MCH 31.5, MCHC 33.9, RDW 14.0, RDW Differential 46.0 H, Plt Count 250, MPV 9.3, Immature Gran % (Auto) 0.300, Neut % (Auto) 76.1 H, Lymph % (Auto) 14.6 L, [place] % (Auto) 6.9, Eos % (Auto) 1.9, Baso % (Auto) 0.2, Absolute Neuts (auto) 4.4, Total Counted Not Reportable Rhythm: sinus rhythm Assessment/Plan 1. Chest pain The patient has undergone further evaluation of her chest discomfort. Her cardiac enzymes have been negative. Her ECG is demonstrated no new acute changes. She also underwent diagnostic cardiac catheterization. Her cardiac catheterization revealed her [place] multivessel disease and patent grafts to the LAD, OM, and RCA systems. In comparison to her previous cardiac catheterization from 2015 there appeared to be no angiographically significant appearing change with respect to her [place] vessels or graft vessels. Thus, there is concern that her chest discomfort may be related to her hypertension as well as episodes of her atrial dysrhythmia with rapid ventricular response superimposed upon her underlying CAD process. 2. CAD status post CABG and status post PCI Again, she is undergone evaluation as noted above. Based upon her findings superimposed upon her recent negative pharmacologic stress nuclear imaging study it was not elected, at this time, to proceed with any attempts at catheter based revascularization of her right PDA system via her SVG graft to the right PDA. However, if after optimizing her medications with respect to her blood pressure and her atrial dysrhythmia and her coronary artery disease, etc., she continues with symptoms concerning for angina pectoris then consideration would be given to an attempt at percutaneous intervention of her right PDA via her SVG graft to the right PDA. Thus her medications will be adjusted. She will continue aspirin therapy. Her nitrates will be increased. She will continue beta-danica therapy. She is on PEACE inhibitor therapy. She will eventually resume her anticoagulant therapy. She is not on a statin due to statin intolerance in the past. 3. 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 This will need to be followed by history, exam, and echocardiographic studies as deemed appropriate. 4. Chronic diastolic mediated CHF The patient does have history of chronic diastolic mediated CHF. She appears to be without acute symptoms at this time. She will continue combined medical management and follow-up. 5. Thoracic aortic aneurysm The does have a history of an underlying thoracic aortic aneurysm. Based upon her previous studies it was described as mild. Has been reassessed and the results are as noted above. 6. Hyperlipidemia She will continue lipid-lowering therapy as deemed appropriate. 7. Hypertension Antihypertensive therapy has been adjusted. She has been placed on amlodipine therapy. Her blood pressures will be followed. Overall, the present time, the patient does appear to be, from a cardiac standpoint, symptomatically improved, as well as demonstrating improvement in her vital signs with respect to her blood pressure control. She has had no obvious post procedure related adverse events. The tentative plan will be for the patient to continue her cardiovascular medical therapy with future outpatient cardiovascular follow-up to monitor her condition. This note was generated with [employer] Dict[employer] software. Every effort was made to ensure accuracy, however, computerized stopper maker mistakes may persist.
--- NOTE | 2017-05-23 13:02 | CASEMGMT ---
Per RN, pt has questions regarding LEVY form that was signed yesterday and inpt vs obs status. This RN CM to room and pt provided with Medicare inpt vs obs booklet at this time and questions answered at this time. Encouraged pt to read through the information that she states she has received from [facility] in regards understanding what her coverage is, pt voices understanding. Pt voices no further concerns/needs/questions at this time. [place] RN CM
--- NOTE | 2017-05-23 13:04 | PN.CARD_ITS ---
Subjectve: The patient was evaluated earlier this day. She denied ongoing chest discomfort , worsening shortness of breath, or palpitations. Her main concern was loose bowel movements. Objective: Vital Signs Temp Pulse Resp BP Pulse Ox 99.4 F H 83 17 137/62 H 94 05/23/17 08:30 05/23/17 11:00 05/23/17 08:30 05/23/17 08:30 05/23/17 08:30 Oxygen Delivery Method Room Air Weight: 110 lb 0.171 oz Body Mass Index (BMI) 20.1 Intake and Output for Last 24 Hours 05/21/17 05/22/17 05/23/17 23:59 23:59 23:59 Intake Total 2186 / 2186 2150 / 2150 438 / 438 Output Total 1300 / 1300 850 / 850 Balance 886 / 886 1300 / 1300 438 / 438 General: Awake, Alert, Oriented x 3, Cooperative, No Acute Distress Neck: No JVD Lungs: Clear to auscultation Cardiovascular: Regular Rhythm, Normal S1, Normal S2 Murmur Murmur: Grade 2/6, Harsh, Mid Systolic, LLSB, LVOT, Sternal Notch, - - 2/6 soft diastolic murmur at the lower left sternal border Vascular: Normal Femoral Pulses Abdomen: Bowel Sounds Present, Soft Extremities: No edema 05/23/17 05:00: Sodium 139, Potassium 3.8, Chloride 106, Carbon Dioxide 22.0, Anion Gap 11, BUN 20 H, Creatinine 0.71, Est GFR (MDRD) Af Amer 102, Est GFR ( MDRD) Non-Af 84, BUN/Creatinine Ratio 28.2 H, Glucose 102, Calcium 8.1 L 05/23/17 05:00: WBC 5.8, RBC 3.75 L, Hgb 11.8 L, Hct 34.8 L, MCV 92.8, MCH 31.5 , MCHC 33.9, RDW 14.0, RDW Differential 46.0 H, Plt Count 250, MPV 9.3, Immature Gran % (Auto) 0.300, Neut % (Auto) 76.1 H, Lymph % (Auto) 14.6 L, Dolores % (Auto) 6.9, Eos % (Auto) 1.9, Baso % (Auto) 0.2, Absolute Neuts (auto) 4.4, Total Counted Not Reportable Rhythm: sinus rhythm Assessment/Plan 1. Chest pain The patient has undergone further evaluation of her chest discomfort. Her cardiac enzymes have been negative. Her ECG is demonstrated no new acute changes. She also underwent diagnostic cardiac catheterization. Her cardiac catheterization revealed her [place] multivessel disease and patent grafts to the LAD, OM, and RCA systems. In comparison to her previous cardiac catheterization from 2015 there appeared to be no angiographically significant appearing change with respect to her [place] vessels or graft vessels. Thus, there is concern that her chest discomfort may be related to her hypertension as well as episodes of her atrial dysrhythmia with rapid ventricular response superimposed upon her underlying CAD process. 2. CAD status post CABG and status post PCI Again, she is undergone evaluation as noted above. Based upon her findings superimposed upon her recent negative pharmacologic stress nuclear imaging study it was not elected, at this time, to proceed with any attempts at catheter based revascularization of her right PDA system via her SVG graft to the right PDA. However, if after optimizing her medications with respect to her blood pressure and her atrial dysrhythmia and her coronary artery disease, etc., she continues with symptoms concerning for angina pectoris then consideration would be given to an attempt at percutaneous intervention of her right PDA via her SVG graft to the right PDA. Thus her medications will be adjusted. She will continue aspirin therapy. Her nitrates will be increased. She will continue beta-danica therapy. She is on PEACE inhibitor therapy. She will eventually resume her anticoagulant therapy. She is not on a statin due to statin intolerance in the past. 3. 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 This will need to be followed by history, exam, and echocardiographic studies as deemed appropriate. 4. Chronic diastolic mediated CHF The patient does have history of chronic diastolic mediated CHF. She appears to be without acute symptoms at this time. She will continue combined medical management and follow-up. 5. Thoracic aortic aneurysm The does have a history of an underlying thoracic aortic aneurysm. Based upon her previous studies it was described as mild. Has been reassessed and the results are as noted above. 6. Hyperlipidemia She will continue lipid-lowering therapy as deemed appropriate. 7. Hypertension Antihypertensive therapy has been adjusted. She has been placed on amlodipine therapy. Her blood pressures will be followed. Overall, the present time, the patient does appear to be, from a cardiac standpoint, symptomatically improved, as well as demonstrating improvement in her vital signs with respect to her blood pressure control. She has had no obvious post procedure related adverse events. The tentative plan will be for the patient to continue her cardiovascular medical therapy with future outpatient cardiovascular follow-up to monitor her condition. This note was generated with [employer] software. Every effort was made to ensure accuracy, however, computerized skein yarn drier mistakes may persist.
== END 2017-05-23 14:44 | disposition home or self-care (01) ==
LOC: ED 13:24 → PCU 15:36
PROVIDERS: Internal Medicine Cardiovascular Disease; Nurse Practitioner Family; Physician Assistant; Admitting Provider Internal Medicine; Emergency Provider Emergency Medicine; Family Provider Family Medicine; PCP Family Medicine; Visit Provider Hospitalist
DX: I25.700 Atherosclerosis of coronary artery bypass graft(s), unspecified, with unstable angina pectoris (principal); I48.0 Paroxysmal atrial fibrillation; I11.0 Hypertensive heart disease with heart failure; I50.32 Chronic diastolic (congestive) heart failure; E78.5 Hyperlipidemia, unspecified; K21.9 Gastro-esophageal reflux disease without esophagitis; F41.9 Anxiety disorder, unspecified; I71.2 Thoracic aortic aneurysm, without rupture; R94.31 Abnormal electrocardiogram [ECG] [EKG]; M19.90 Unspecified osteoarthritis, unspecified site; I73.9 Peripheral vascular disease, unspecified; I70.0 Atherosclerosis of aorta; I08.0 Rheumatic disorders of both mitral and aortic valves; Z95.1 Presence of aortocoronary bypass graft; Z79.01 Long term (current) use of anticoagulants; Z79.899 Other long term (current) drug therapy; Z79.82 Long term (current) use of aspirin; Z82.49 Family history of ischemic heart disease and other diseases of the circulatory system
CPT/HCPCS: 36415; 70450; 71045; 71260; 74018; 80048; 80076; 81001; 83690; 84484; 85025; 85610; 85730; 87493; 87506; 93005; 93459; 96361; 96372; 96374; 96376; 99152; 99153; 99218; 99285; J7030; Q9967; A4216; C1769; C1894; G0378; J2405

== ENCOUNTER → 2017-06-30 09:13 | Outpatient (CLI) | payer MEDICARE, SELFPAY ==
--- NOTE | 2017-06-30 09:15 | HPBI_ITS ---
MAMMOGRAPHY - BILATERAL SCREENING REASON FOR EXAM: Female, 81 years old. Routine annual screening examination. PERTINENT HISTORY: Non-contributory. TECHNIQUE: Digital bilateral breast gonzalo (3D mammographic acquisition) in the CC and MLO projections. 2-D mediolateral oblique (MLO) and craniocaudad (CC) views of both breasts were obtained. CAD: Full Field Digital Mammography with Computer Added Detection was performed. COMPARISON: Comparison is made with prior study dated May 14, 2016 and January 19, 2015. FINDINGS: Breast Composition: There are scattered areas of fibroglandular density. There are no dominant masses or suspicious calcifications. No other significant abnormalities are identified. There has been no significant change since the prior study. HPBI/SCREENING MAMM (CAD), BILAT IMPRESSION: Stable bilateral screening mammogram. Yearly follow-up mammogram recommended. (A) ASSESSMENT CATEGORY: BIRADS Category 1: Negative. A letter regarding these results will be sent to the patient by the facility within 30 days. Approximately 10% of breast cancers are not detected by mammography. A normal mammogram should not delay biopsy of a clinically suspicious abnormality. [id number] Electronically Signed: Mariusz Alarcon MD at 10:55 EDT Tel [phone], Service support ,
== END ==
PROVIDERS: Family Provider Family Medicine; PCP Family Medicine; Visit Provider Family Medicine
DX: Z12.31 Encounter for screening mammogram for malignant neoplasm of breast (principal)
CPT/HCPCS: 77063; 77067

== ENCOUNTER → 2017-08-06 10:03 | Outpatient (CLI) | payer MEDICARE, SELFPAY ==
[2017-08-06 10:55] LABS: Magnesium 1.8 mg/dL (1.6-2.6)
== END ==
PROVIDERS: Nurse Practitioner Family; Family Provider Family Medicine; PCP Family Medicine; Visit Provider Physician Assistant Medical
DX: R25.2 Cramp and spasm (principal)
CPT/HCPCS: 36415; 83735

== ENCOUNTER → 2017-08-20 08:03 | Outpatient (CLI) | payer MEDICARE, SELFPAY ==
--- NOTE | 2017-08-20 08:05 | RAD_ITS ---
STUDY: X-RAY - ESOPHAGUS (BARIUM SWALLOW) WITH FLUOROSCOPY REASON FOR EXAM: Female, 82 years old. Dysphagia. TECHNIQUE: 17 view(s) of the esophagus were obtained following swallowing of barium. FLUOROSCOPY TIME (if supplied): (0:15) minutes/seconds COMPARISON: None. FINDINGS: There is no demonstrated esophageal foreign body. There is no demonstrated stricture or mucosal abnormality. Normal gastroesophageal junction, without a demonstrated hiatal hernia. There is evidence of gastroesophageal reflux. The patient ingested a 12 mm tablet of barium without any difficulty. There is atherosclerotic calcification of the aortic arch with tortuosity of the descending aorta. Normal visualized pulmonary parenchyma. There are diffuse degenerative changes of the visualized thoracic spine. RAD/Esophagus Only IMPRESSION: Gastroesophageal reflux. Electronically Signed: Mariusz Alarcon MD at 9:14 EDT Tel [phone], Service support ,
== END ==
PROVIDERS: Family Provider Family Medicine; PCP Family Medicine; Visit Provider Internal Medicine Gastroenterology
DX: R13.10 Dysphagia, unspecified (principal)
CPT/HCPCS: 74220

== ENCOUNTER → 2017-09-05 11:56 | Outpatient (CLI) | payer MEDICARE, SELFPAY ==
[2017-09-05 12:29] LABS: Absolute Lymphocyte Count 1.36 X10^3/ul (0.83-4.51); Absolute Neutrophil Count 2.1 X10^3/uL (2.0-7.7); Eosinophil# 0.08 X10^3/uL; Hematocrit 33.8 % (37-47); Hemoglobin 11.4 g/dl (12.0-15.0); Lymphocyte # 1.36 X10^3/ul (4.0); Lymphocyte % 34.1 % (19-41); Mean Corp Hgb Conc 33.7 g/gl (32-36); Mean Corpuscular Hgb 30.5 pg (27.0-32.0); Mean Corpuscular Volume 90.4 fL (81-99); Mean Platelet Vol. 8.7 fl (6.2-12.0); Monocyte# 0.43 X10^3/uL; Monocyte% 10.8 % (0-10); Neutrophil # 2.11 X10^3/uL (2.7-7.7); Neutrophil % 52.8 % (47-70); Platelet Count 229 K/mm3 (150-450); RBC Distribution Width CV 14.3 % (11.6-14.6); RBC Distribution Width SD 46.9 fl (35.1-43.9); Red Blood Count 3.74 M/mm3 (4.2-5.4)
[2017-09-05 12:39] LABS: POSITIVE COUNT NO; POSITIVE DIFFERENTIAL NO; POSITIVE MORPHOLOGY NO
[2017-09-05 13:13] LABS: Anion Gap 7 (5-15); BUN 21 mg/dL (7-18); BUN/Creat Ratio 22.3 RATIO (10-20); Calcium,Total 9.4 mg/dL (8.5-10.1); Chloride 103 mmol/L (98-107); Creatinine, Serum 0.94 mg/dL (0.55-1.02); EST Glomerular Filtration Rate 60 mL/min (>60); Est Glom Filt Rate - Afr Amer 73 mL/min (>60); Glucose 105 mg/dL (74-106); Potassium 4.2 mmol/L (3.5-5.1); Sodium Level 134 mmol/L (136-145); Thyroid Stim Hormone (TSH) 1.87 uIU/mL (0.358-3.74)
== END ==
PROVIDERS: Family Provider Family Medicine; PCP Family Medicine; Visit Provider Internal Medicine Cardiovascular Disease
DX: I50.32 Chronic diastolic (congestive) heart failure (principal); I38 Endocarditis, valve unspecified; I77.9 Disorder of arteries and arterioles, unspecified
CPT/HCPCS: 36415; 80048; 84443; 85025

== ENCOUNTER → 2017-10-17 07:35 | Outpatient (CLI) | payer MEDICARE, SELFPAY ==
[2017-10-17 08:33] LABS: AST(SGOT) 30 U/L (15-37); Alanine Aminotransfer ALT/SGPT 23 U/L (13-56); Albumin, Serum 3.8 g/dL (3.2-5.0); Alkaline Phosphatase 63 U/L (45-117); Bilirubin, Direct 0.18 mg/dL (0.00-0.30); Cholesterol 178 mg/dL (200); Globulin 3.1 g/dL (2.2-4.2); High Density Lipoprotein 66 mg/dL; Protein, Total 6.9 g/dL (6.4-8.2); Triglycerides 55 mg/dL; Very Low Density Lipoprotein 11 mg/dL (5-40)
== END ==
PROVIDERS: Family Provider Family Medicine; PCP Family Medicine; Visit Provider Physician Assistant Medical
DX: E78.5 Hyperlipidemia, unspecified (principal); Z79.899 Other long term (current) drug therapy
CPT/HCPCS: 36415; 80061; 80076

== ENCOUNTER → 2018-01-16 12:52 | Outpatient (CLI) | payer MEDICARE, SELFPAY ==
--- NOTE | 2018-01-16 13:45 | MRI_ITS ---
STUDY: MRI LUMBAR SPINE WITH AND WITHOUT CONTRAST REASON FOR EXAM: Female, 82 years old. Low back pain and left leg weakness and foot numbness TECHNIQUE: Standardized fat and water weighted pulse sequences were obtained in the sagittal and axial planes. 6 ml of Gadavist contrast material was administered for the contrast portion of the examination. COMPARISON: 06/29/2016 FINDINGS: T12-L1: Normal endplates. Normal disc height, hydration and morphology. Normal bilateral facet joints. Normal central canal and bilateral lateral recesses. Normal bilateral intervertebral neural foramina. Normal lumbar lordosis. There is no substantial scoliosis. Normal conus medullaris that terminates at the T12 level. Bilateral posterior pedicle fusions at L3, L4, and L5. Stable grade 1 L2-3 retrolisthesis. Stable grade 1 L4-5 anterolisthesis. Bilateral laminectomies at L2-3, L3-4, L4-5, and L5-S1. L1-2: Bulging annulus without compressive sequelae. L2-3: Retrolisthesis and bulging annulus with bilateral facet hypertrophy. Severe bilateral foraminal stenoses. L3-4: Bulging annulus and bilateral facet hypertrophy with moderate left and mild right foraminal stenoses. L4-5: Anterolisthesis and bulging annulus with bilateral facet hypertrophy. Moderate central canal and moderate to severe left and moderate right foraminal stenoses. L5-S1: No compressive sequelae. Normal visualized sacral ala. Stable seroma posterior to laminectomy site at the L4-5 level measuring 18 mm tall by 12 mm deep. Left renal cysts. MRI/Spine Lumbar W/WO Contrast IMPRESSION: Multilevel degenerative disease and postoperative changes as described. Stable grade 1 L4-5 anterolisthesis. Bilateral laminectomies at L2-3, L3-4, L4-5, and L5-S1. Severe bilateral foraminal stenoses at the L2-3 level. Electronically Signed: Mina Azar MD at 3:20 EDT Tel , Service support ,
[2018-01-16 14:16] LABS: CREATININE FINGERSTICK < 0.6 mg/dL (0.55-1.02); EGFR FINGERSTICK > 60.0000 mL/min (>60)
== END ==
PROVIDERS: Family Provider Family Medicine; PCP Family Medicine; Referring Provider Family Medicine; Visit Provider Family Medicine
DX: M51.36 Other intervertebral disc degeneration, lumbar region (principal); M53.9 Dorsopathy, unspecified
CPT/HCPCS: 72158; A9585

== ENCOUNTER → 2018-04-13 09:32 | Outpatient (CLI) | payer MEDICARE, SELFPAY ==
[2018-04-13 08:45] VITALS: BMI 20.8
--- NOTE | 2018-04-13 09:40 | RAD_ITS ---
STUDY: X-RAY CHEST REASON FOR EXAM: Female, 82 years old. Cough TECHNIQUE: PA and lateral views of the chest. COMPARISON: 05/20/2017 FINDINGS: The lungs are clear and expanded. There is no demonstrated pleural abnormality. There is mild cardiac enlargement. There is pectus excavatum. Sternal wires and mediastinal surgical clips compatible with prior CABG. Normal mediastinum and alexus. Normal visualized pulmonary arteries. There is atherosclerotic calcification of the aortic arch with tortuosity. There are operative changes of the lumbar spine partially visualized. Degenerative changes of the thoracolumbar spine noted. Right shoulder replacement noted. There is no demonstrated abnormality of the visualized soft tissue structures of the upper abdomen. RAD/Chest PA and Lateral IMPRESSION: 1. No airspace consolidation or pleural effusion. 2. Stable chronic and postoperative changes, as above. Electronically Signed: Nima Altamirano MD at 13:07 EST , Service support ,
== END ==
PROVIDERS: Family Provider Family Medicine; PCP Family Medicine; Referring Provider Nurse Practitioner Family; Visit Provider Nurse Practitioner Family
DX: R05 Cough (principal)
CPT/HCPCS: 71046

== ENCOUNTER → 2018-07-09 12:30 | Outpatient (CLI) | payer MEDICARE, SELFPAY ==
[2018-04-13 08:45] VITALS: BMI 20.8
--- NOTE | 2018-07-09 12:34 | BI_ITS ---
MAMMOGRAPHY - BILATERAL SCREENING REASON FOR EXAM: Female, 82 years old. Routine annual screening examination. PERTINENT HISTORY: Non-contributory. TECHNIQUE: Digital bilateral breast gonzalo (3D mammographic acquisition) in the CC and MLO projections. 2-D mediolateral oblique (MLO) and craniocaudad (CC) views of both breasts were obtained. CAD: Full Field Digital Mammography with Computer Added Detection was performed. COMPARISON: Comparison is made with prior study dated June 30, 2017 and November 11, 2016. FINDINGS: Breast Composition: There are scattered areas of fibroglandular density. There are no dominant masses or suspicious calcifications. No other significant abnormalities are identified. There has been no significant change since the prior study. BI/SCREENING MAMM (CAD), BILAT IMPRESSION: Stable bilateral screening mammogram. Yearly follow-up mammogram recommended. (A) ASSESSMENT CATEGORY: BIRADS Category 1: Negative. A letter regarding these results will be sent to the patient by the facility within 30 days. Approximately 10% of breast cancers are not detected by mammography. A normal mammogram should not delay biopsy of a clinically suspicious abnormality. [id number] Electronically Signed: Mariusz Alarcon, at 14:42 EDT , Service support ,
== END ==
PROVIDERS: Family Provider Family Medicine; PCP Family Medicine; Visit Provider Family Medicine
DX: Z12.31 Encounter for screening mammogram for malignant neoplasm of breast (principal)
CPT/HCPCS: 77063; 77067

== ENCOUNTER → 2018-07-13 13:42 | Outpatient (CLI) | payer MEDICARE, SELFPAY ==
[2018-04-13 08:45] VITALS: BMI 20.8
[2018-07-13 16:16] LABS: Absolute Lymphocyte Count 1.68 X10^3/ul (0.83-4.51); Absolute Neutrophil Count 2.7 X10^3/uL (2.0-7.7); Basophil# 0.01 X10^3/uL; Basophil% 0.2 % (0-1); Eosinophil# 0.26 X10^3/uL; Eosinophils% 4.8 % (0-5); Hematocrit 34.4 % (37-47); Hemoglobin 11.6 g/dl (12.0-15.0); Lymphocyte # 1.68 X10^3/ul (4.0); Lymphocyte % 31.2 % (19-41); Mean Corp Hgb Conc 33.7 g/gl (32-36); Mean Corpuscular Hgb 31.3 pg (27.0-32.0); Mean Corpuscular Volume 92.7 fL (81-99); Mean Platelet Vol. 9.1 fl (6.2-12.0); Monocyte# 0.77 X10^3/uL; Monocyte% 14.3 % (0-10); Neutrophil # 2.66 X10^3/uL (2.7-7.7); Neutrophil % 49.3 % (47-70); Platelet Count 287 K/mm3 (150-450); RBC Distribution Width CV 14.2 % (11.6-14.6); Red Blood Count 3.71 M/mm3 (4.2-5.4); White Blood Count 5.4 K/mm3 (4.4-11.0)
[2018-07-13 16:17] LABS: POSITIVE COUNT NO; POSITIVE DIFFERENTIAL NO; POSITIVE MORPHOLOGY NO
[2018-07-13 17:02] LABS: ALB/GLOB Ratio 1.2 RATIO (0.9-2.4); AST(SGOT) 25 U/L (15-37); Alanine Aminotransfer ALT/SGPT 22 U/L (13-56); Albumin, Serum 3.7 g/dL (3.2-5.0); Alkaline Phosphatase 66 U/L (45-117); Anion Gap 8 (5-15); BUN 21 mg/dL (7-18); BUN/Creat Ratio 27.1 RATIO (10-20); Calcium,Total 8.9 mg/dL (8.5-10.1); Chloride 99 mmol/L (98-107); Creatinine, Serum 0.78 mg/dL (0.55-1.02); EST Glomerular Filtration Rate 75 mL/min (>60); Est Glom Filt Rate - Afr Amer 91 mL/min (>60); Free T3 2.8 pg/mL (2.18-3.98); Globulin 3.1 g/dL (2.2-4.2); Glucose 115 mg/dL (74-106); Magnesium 1.9 mg/dL (1.6-2.6); Potassium 4.2 mmol/L (3.5-5.1); Protein, Total 6.8 g/dL (6.4-8.2); Sodium Level 134 mmol/L (136-145); T4 Free Direct 1.23 ng/dL (0.76-1.46); Thyroid Stim Hormone (TSH) 1.46 uIU/mL (0.358-3.74)
== END ==
PROVIDERS: Family Provider Family Medicine; PCP Family Medicine; Visit Provider Family Medicine
DX: E87.6 Hypokalemia (principal); R53.83 Other fatigue; R25.2 Cramp and spasm
CPT/HCPCS: 36415; 80053; 83735; 84439; 84443; 84481; 85025

== ENCOUNTER → 2018-10-02 08:39 | Outpatient (CLI) | payer MEDICARE, SELFPAY ==
[2018-09-30 08:37] VITALS: BMI 21.5
--- NOTE | 2018-10-02 08:41 | CDU_ITS ---
Reason For Study: LEFT BRUIT Rt. Velocities/BP Lt. Velocities/BP Prox CCA 52.6/8.7 cm/sec. Prox CCA 78.4/12.2 cm/sec. Mid CCA 69.1/14.2 cm/sec. Mid CCA 90.7/19.5 cm/sec. Dist CCA 57.0/10.9 cm/sec. Dist CCA 80.9/14.6 cm/sec. Prox ICA 69.0/13.8 cm/sec. Prox ICA 183.7/30.8 cm/sec. Mid ICA 56.7/12.5 cm/sec. Mid ICA 76.4/18.7 cm/sec. Dist ICA 64.1/21.1 cm/sec. Dist ICA 49.4/15.0 cm/sec. Rt. ICA/CCA = 69.0/69.1=1.0. Lt. ICA/CCA = 183.7/90.7=2.0. Prox ECA 100.3/0.0 cm/sec. Prox ECA 142.4/0.0 cm/sec. Rt. Vert. 60.4/13.8 cm/sec. Lt. Vert. 65.3/15.0 cm/sec. Right Extracranial There is heterogeneous, irregular atherosclerotic plaque noted in the right common carotid artery. There is heterogeneous, irregular atherosclerotic plaque noted in the right internal carotid artery. There is intimal thickening but no significant atherosclerotic plaque noted in the right external carotid artery. Antegrade flow is noted in the right vertebral artery. Left Extracranial There is homogeneous, smooth atherosclerotic plaque noted in the left common carotid artery. There is heterogeneous, irregular atherosclerotic plaque noted in the left internal carotid artery. There is homogeneous, smooth atherosclerotic plaque noted in the left external carotid artery. Antegrade flow is noted in the left vertebral artery. Procedure Carotid Duplex 13746. The exam was diagnostic. Exam performed in department. Interpretation Summary Mild (<50%) stenosis right extracranial internal carotid. Moderate (50-69%) stenosis left extracranial internal carotid. Flow within the vertebral arteries is antegrade bilaterally. Ordering Physician: Chika Marrero Referring Physician: Rachel Bernabe Performed By: Tisha Burns RDCS, RVT
== END ==
PROVIDERS: Family Provider Family Medicine; PCP Family Medicine; Referring Provider Physician Assistant Medical; Visit Provider Physician Assistant Medical
DX: R09.89 Other specified symptoms and signs involving the circulatory and respiratory systems (principal); I77.9 Disorder of arteries and arterioles, unspecified
CPT/HCPCS: 93880

== ENCOUNTER 2019-02-28 21:52 | Observation (INO) | payer MEDICARE, SELFPAY ==
[2019-02-04 10:35] VITALS: BMI 21.5
[2019-02-28 21:53] VITALS: BP 178/96; PULSE 125; RESP 22; TEMP 36.3; O2SAT 99; BMI 20.7
--- NOTE | 2019-02-28 22:09 | ED.DCSUM_ITS ---
History of Present Illness Chief Complaint: Chest Pain Informant: Patient Narrative: Presents with atrial fibrillation. She felt her heart racing a few hours ago at home. She denies any chest pain or shortness of breath or other symptoms. She did not feel any chest tightness. She took a aspirin at home in a nitroglycerin thinking that it might slow her heart rate down. She takes isosorbide. She denies being on a blood thinner. She stated she used to be on Eliquis but is no longer on that. She stated the last time she had atrial fibrillation was 2 years ago. She underwent a heart catheterization at that time. She did not require treatments. She has a history of CABG in the past as well as heart stents. She denies any shortness of breath or other symptoms. - Past Medical History (1) Atrial flutter Status: Acute (2) Productive cough Status: Acute (3) Sinus bradycardia Status: Acute (4) Aortic insufficiency Status: Chronic Comment: Mild (5) Aortic valve disorder Status: Chronic (6) Aortocoronary bypass status Status: Chronic Comment: PRO to LAd, SVg to distal LCFX, SVG to RCA 2009 (7) Atherosclerotic heart disease of [place] coronary artery without angina pectoris Status: Chronic Comment: PRO to LAD, SVG to distal LCFX, SVG to RCA 2009; PTCA/Stent to SVG of [facility] 11/13/11 (8) Carotid artery disease Status: Chronic (9) Chronic diastolic (congestive) heart failure Status: Chronic (10) Hyperlipidemia Status: Chronic (11) Hypertension Status: Chronic (12) Left carotid bruit Status: Chronic (13) Mitral valve regurgitation Status: Chronic (14) Paroxysmal atrial fibrillation Status: Chronic (15) Presence of stent in coronary artery Status: Chronic Comment: PTCA/Stent to SVG of 2 11/13/11 (16) Thoracic aortic aneurysm without rupture Status: Chronic (17) Valvular heart disease Status: Chronic Past Medical History - Allergies and Home Meds Allergies/Adverse Reactions: Allergies alendronate sodium [From Fosamax] Allergy (Verified 02/28/19 21:57) Unknown atorvastatin calcium [From Lipitor] Allergy (Verified 02/28/19 21:57) Unknown colestipol HCl [From Colestid] Allergy (Verified 02/28/19 21:57) Unknown cortisone acetate [From Cortone] Allergy (Verified 02/28/19 21:57) Unknown ezetimibe [From Zetia] Allergy (Verified 02/28/19 21:57) Unknown gabapentin Allergy (Verified 02/28/19 21:57) Unknown goserelin acetate [From Zoladex] Allergy (Verified 02/28/19 21:57) Unknown nabumetone Allergy (Verified 02/28/19 21:57) Other paroxetine HCl [From Paxil] Allergy (Verified 02/28/19 21:57) Unknown rosuvastatin calcium [From Crestor] Allergy (Verified 02/28/19 21:57) Unknown sertraline HCl [From Zoloft] Allergy (Verified 02/28/19 21:57) Unknown venlafaxine HCl [From Effexor] Allergy (Verified 02/28/19 21:57) Unknown hydrocodone Adverse Reaction (Intermediate, Verified 02/28/19 21:57) Unknown acetaminophen [From Vicodin] Adverse Reaction (Verified 02/28/19 21:57) KEEPS ME AWAKE carvedilol Adverse Reaction (Verified 02/28/19 21:57) Unknown hydrocodone bitartrate [From Vicodin] Adverse Reaction (Verified 02/28/19 21:57) KEEPS ME AWAKE venlafaxine Adverse Reaction (Severe, Uncoded 02/28/19 21:57) Unknown Prior records reviewed: Yes Past Medical History: - - See problem list Surgical History: angioplasty, coronary bypass surgery - Coronary artery bypass grafting was done in 2011. She also had a coronary stent the following year., total knee arthroplasty - the, - Lives: With Family Smoking Status: Never smoker Alcohol: None Drugs: None - Family History Maternal Family History: Family History (Last Reviewed 02/04/19 @ 09:56 by Vy Mancilla) Brother CAD (coronary artery disease) Diabetes Myocardial infarction Father CAD (coronary artery disease) Other Family history of premature coronary heart disease Family History: Reports: Heart Disease Paternal Family History: Family History (Last Reviewed 02/04/19 @ 09:56 by Vy Mancilla) Brother CAD (coronary artery disease) Diabetes Myocardial infarction Father CAD (coronary artery disease) Other Family history of premature coronary heart disease Family History: Reports: Heart Disease Review of Systems General: Denies: Chills, Fever, Sweats Eyes: Denies: Visual changes - bilaterally, Diplopia ENT: Denies: Rhinorrhea, Sore throat Cardiovascular: Reports: Palpitations, Heart racing. Denies: Chest pain Respiratory: Denies: Dyspnea, Cough, Dyspnea on exertion Gastrointestinal: Denies: Abdominal pain, Nausea, Vomiting, Diarrhea, Melena, Hematochezia Genitourinary: Denies: Dysuria, Hematuria, Frequency Musculoskeletal: Denies: Back pain, Extremity Pain Skin: Denies: Rash, Wounds Neurological: Denies: Headache, Weakness, Numbness Physical Exam Vital Signs/Narrative: Vital Signs Temp Pulse Resp BP Pulse Ox 02/28/19 21:53 97.3 F L 125 H 22 H 178/96 H 99 General: Well nourished, Well developed, No Acute Distress Head: Normocephalic, Atraumatic Eyes: Perrl, EOMI ENT: Moist mucous membranes, No rhinorrhea Neck: Supple, Nontender Cardiovascular: No murmurs, Irregular, Tachycardia. Negative for: Regular rate, Regular rhythm Respiratory: No distress, CTA bilaterally, Chest nontender Abdomen: Soft, Nontender, Nondistended, Normal bowel sounds Back: Nontender, Normal Inspection Extremities: Nontender, No edema Skin: Normal color, No rash Neurological: Alert, Oriented x3, Cranial nerves II-XII grossly intact, Normal Strength, Normal Sensation Psychological: Normal affect, Normal Mood Diagnostic/Tx/Re-eval - Medical Decision Making Patient underwent EKG that shows atrial fibrillation at a rate of 124. No acute STEMI. ST depression in lead V3 through V6. Lab work and chest x-ray obtained. Patient given a dose of Cardizem IV Cardizem brought the patient's heart rate down into the 70s to 80s. She is resting more comfortably. Lab work shows a low potassium of 2.8. Patient stated she should be taking potassium at home but does not take it too frequently. Patient's troponin is negative. CBC shows mild anemia. Chest x-ray shows no acute heart failure. Very mild interstitial pattern. This was read by myself. At this time the patient is a new onset atrial fibrillation. Reviewing the patient's medication she also takes amiodarone and metoprolol. She was unaware of this. She is not on blood thinners. Discussed with the hospitalist. I feel patient should be admitted ED Disposition - Plan for ED Patient: [facility]position: [facility] Unit Diagnosis: Paroxysmal atrial fibrillation with RVR
--- NOTE | 2019-02-28 22:09 | RAD_ITS ---
HISTORY: CHEST PAIN EXAM: XR Chest 1 View: COMPARISON: April 13, 2018 FINDINGS: # of images incl. paperwork: 1 Sternal wires and mediastinal clips persist. Right shoulder arthroplasty is unchanged Basilar airspace disease right greater than left is similar to the previous study. Some interlobular septal thickening is present at the lung bases Heart is borderline enlarged. Thoracic spondylosis and scoliosis is similar Pulmonary vascularity is distinct. Possible tiny right pleural effusions. RAD/Chest 1 View (Portable) IMPRESSION: Mild CHF. at 2254 Reported and signed by: Je Lynne MD Electronically Signed: Je Lynne MD at 22:53 EST Tel , Service support ,
--- NOTE | 2019-02-28 22:09 | EKG12_ITS ---
Test Reason : CP Blood Pressure : / mmHG Vent. Rate : 124 BPM Atrial Rate : 117 BPM P-R Int : 000 ms QRS Dur : 072 ms QT Int : 334 ms P-R-T Axes : 000 037 018 degrees QTc Int : 479 ms Atrial fibrillation with rapid ventricular response ST & T wave abnormality, consider lateral ischemia Abnormal ECG Confirmed by ZACK BOYCE, MAURO ([id number]), editor city EM LANDA ([id number]) on 03/02/2019 11:46:51 AM Referred By: BB Confirmed By:MAURO DIXON MD
[2019-02-28 22:16] VITALS: O2SAT 100
[2019-02-28 22:20] VITALS: BP 165/104; PULSE 136; RESP 17; O2SAT 100
[2019-02-28] MEDS: dilTIAZem 25 MG/5 ML Vial 10 MG IV BOLUS (22:20)
[2019-02-28 22:23] VITALS: PULSE 121
[2019-02-28 22:24] LABS: Absolute Lymphocyte Count 3.17 X10^3/uL (0.83-4.51); Absolute Neutrophil Count 3.7 X10^3/uL (2.0-7.7); Basophil# 0.05 X10^3/uL; Basophil% 0.6 % (0-1); Eosinophil# 0.13 X10^3/uL; Eosinophils% 1.7 % (0-5); Hematocrit 34.3 % (37-47); Hemoglobin 11.2 g/dL (12.0-15.0); Lymphocyte # 3.17 X10^3/ul (4.0); Lymphocyte % 40.3 % (19-41); Mean Corp Hgb Conc 32.7 g/dL (32-36); Mean Corpuscular Hgb 30.4 pg (27.0-32.0); Mean Platelet Vol. 8.8 fl (6.2-12.0); Monocyte# 0.75 X10^3/uL; Monocyte% 9.5 % (0-10); NRBC Flagged by Analyzer 0 % (0-5); Neutrophil # 3.74 X10^3/uL (2.7-7.7); Neutrophil % 47.5 % (47-70); Platelet Count 254 K/mm3 (150-450); RBC Distribution Width CV 15.6 % (11.6-14.6); RBC Distribution Width SD 52.1 fl (35.1-43.9); Red Blood Count 3.69 M/mm3 (4.2-5.4); White Blood Count 7.9 K/mm3 (4.4-11.0)
[2019-02-28 22:44] LABS: Anion Gap 10 (5-15); BUN 19 mg/dL (7-18); BUN/Creat Ratio 20.6 RATIO (10-20); Calcium,Total 8.8 mg/dL (8.5-10.1); Chloride 104 mmol/L (98-107); Creatinine, Serum 0.92 mg/dL (0.55-1.02); EST Glomerular Filtration Rate 62 mL/min (>60); Est Glom Filt Rate - Afr Amer 74 mL/min (>60); Glucose 149 mg/dL (74-106); Potassium 2.8 mmol/L (3.5-5.1); Sodium Level 141 mmol/L (136-145)
[2019-02-28 23:01] VITALS: BP 130/60; PULSE 79; O2SAT 99
[2019-03-01] VITALS (13 sets, daily range): BP systolic 113–139; BP diastolic 48–92; PULSE 76–114; RESP 16–20; TEMP 36.2–37.2; O2SAT 92–98; BMI 19.6; BMI 19.7
--- NOTE | 2019-03-01 00:03 | PCM.HP.STD ---
Problem List (1) Atrial fibrillation with RVR Status: Acute (2) Hypokalemia Status: Acute History of Present Illness Date of Admission: 02/28/19 Chief Complaint: palpitations Patient is seen and examined on February 28. The patient is a 83 year old F with a history of paroxysmal H fibrillation presents with palpitations. Palpitations started on the . Patient took some nitroglycerin because she does not was not feeling well. Paradoxically, patient developed left-sided chest pain after taking the nitroglycerin. Patient presented to the emergency room and was found to be in atrial fibrillation with RVR with a heart rate in the 130s. She received 10 mg of IV diltiazem and heart rate went into the. Patient states that she has been compliant with her medications and not missed any doses. Patient was found to be hypokalemic with a potassium of 2.8 did receive 20 mEq of oral potassium in the emergency room. Currently, the patient is not having further palpitations nor any chest pain. [] Past Medical History Past Medical History (Chronic Problems): Chronic Problems (Last Reviewed 02/04/19 @ 09:56 by Vy Mancilla) Left carotid bruit (Chronic) Valvular heart disease (Chronic) Carotid artery disease (Chronic) Thoracic aortic aneurysm without rupture (Chronic) Atherosclerotic heart disease of [place] coronary artery without angina pectoris (Chronic) PRO to LAD, SVG to distal LCFX, SVG to RCA 2009; PTCA/Stent to SVG of [facility] 11/13/11 Aortocoronary bypass status (Chronic ~2009) PRO to LAd, SVg to distal LCFX, SVG to RCA 2009 Chronic diastolic (congestive) heart failure (Chronic) Paroxysmal atrial fibrillation (Chronic) Presence of stent in coronary artery (Chronic ~11/13/11) PTCA/Stent to SVG of 2 11/13/11 Hypertension (Chronic) Hyperlipidemia (Chronic) Aortic insufficiency (Chronic) Mild Mitral valve regurgitation (Chronic) Aortic valve disorder (Chronic) Medical History: Medical History (Last Reviewed 03/01/19 @ 00:05 by Kin Martinez DO) Atherosclerotic heart disease of [place] coronary artery without angina pectoris (Chronic) I25.10 PRO to LAD, SVG to distal LCFX, SVG to RCA 2009; PTCA/Stent to SVG of [facility] 11/13/11 Chronic diastolic (congestive) heart failure (Chronic) I50.32 Paroxysmal atrial fibrillation (Chronic) I48.0 Hypertension (Chronic) I10 Hyperlipidemia (Chronic) E78.5 Atrial flutter (Acute) I48.92 Sinus bradycardia (Acute) R00.1 Aortic insufficiency (Chronic) I35.1 Mild Mitral valve regurgitation (Chronic) I34.0 Aortic valve disorder (Chronic) I35.9 GERD (gastroesophageal reflux disease) K21.9 Left carotid bruit R09.89 Nonrheumatic mitral valve regurgitation I34.0 Peripheral vascular disease I73.9 Thoracic aortic aneurysm I71.2 Chest pain (Resolved) R07.9 Ascending aortic aneurysm (Inactive) I71.2 Aortic Root Atherosclerosis of coronary artery bypass graft without angina pectoris (Inactive) I25.810 PRO to LAD< SVG to distal L CFX, SVG to RCA 2010 Carotid bruit (Inactive) R09.89 Left Chronic insomnia (Inactive) F51.04 Diastolic dysfunction I51.9 Family history of premature coronary heart disease (Inactive) Z82.49 Male < 55 long term use of drug Z79.899 Mitral valve disorder (Inactive) I05.9 Paroxysmal atrial fibrillation I48.0 Allergies alendronate sodium [From Fosamax] Allergy (Verified 02/28/19 21:57) Unknown atorvastatin calcium [From Lipitor] Allergy (Verified 02/28/19 21:57) Unknown colestipol HCl [From Colestid] Allergy (Verified 02/28/19 21:57) Unknown cortisone acetate [From Cortone] Allergy (Verified 02/28/19 21:57) Unknown ezetimibe [From Zetia] Allergy (Verified 02/28/19 21:57) Unknown gabapentin Allergy (Verified 02/28/19 21:57) Unknown goserelin acetate [From Zoladex] Allergy (Verified 02/28/19 21:57) Unknown nabumetone Allergy (Verified 02/28/19 21:57) Other paroxetine HCl [From Paxil] Allergy (Verified 02/28/19 21:57) Unknown rosuvastatin calcium [From Crestor] Allergy (Verified 02/28/19 21:57) Unknown sertraline HCl [From Zoloft] Allergy (Verified 02/28/19 21:57) Unknown venlafaxine HCl [From Effexor] Allergy (Verified 02/28/19 21:57) Unknown hydrocodone Adverse Reaction (Intermediate, Verified 02/28/19 21:57) Unknown acetaminophen [From Vicodin] Adverse Reaction (Verified 02/28/19 21:57) KEEPS ME AWAKE carvedilol Adverse Reaction (Verified 02/28/19 21:57) Unknown hydrocodone bitartrate [From Vicodin] Adverse Reaction (Verified 02/28/19 21:57) KEEPS ME AWAKE venlafaxine Adverse Reaction (Severe, Uncoded 02/28/19 21:57) Unknown Home Medications: Ambulatory Orders Medication Instructions Recorded Calcium Carbonate [Calcium] 600 mg PO DAILY 03/28/15 Hunter-3 Fatty Acids [Fish Oil] 1,000 mg PO DAILY 03/28/15 Nitroglycerin (INPATIENT USE) 0.4 mg SUBLINGUAL Q5M PRN #6 tab 05/23/17 [Nitrostat] esomeprazole magnesium 20 mg 20 mg PO QDAY PRN 09/05/17 capsule,delayed release aspirin 81 mg tablet,delayed 81 mg PO Q OTHER DAY tab 04/13/18 release potassium 99 mg tablet 99 mg PO DAILY 04/13/18 metoprolol succinate ER 50 mg 50 mg PO DAILY #90 tab 06/23/18 tablet,extended release 24 hr amlodipine 5 mg tablet 5 mg PO QDAY #90 tab 09/30/18 latanoprost 0.005 % eye drops OPHTHALMIC #8 ml 09/30/18 ramipril 10 mg capsule PO #180 cap 09/30/18 isosorbide mononitrate ER 60 mg 60 mg PO QAM #90 tab 01/04/19 tablet,extended release 24 hr Surgical History: Surgical History (Last Reviewed 03/01/19 @ 00:05 by Kin Martinez DO) Aortocoronary bypass status (Chronic) Onset Date: ~2009 Z95.1 PRO to LAd, SVg to distal LCFX, SVG to RCA 2009 Presence of stent in coronary artery (Chronic) Onset Date: ~11/13/11 Z95.5 PTCA/Stent to SVG of OM2 11/13/11 History of knee replacement, total Z96.659 History of back surgery Z98.890 History of right shoulder replacement Z96.611 History of total hysterectomy Z98.890, Z90.710 History of percutaneous transluminal coronary angioplasty (Inactive) Z98.61 PTCA/stent to SVG of OM2 11/13/2011, 03/25/12 Surgical History: angioplasty, coronary bypass surgery - Coronary artery bypass grafting was done in 2011. 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 Lives: With Family Smoking Status: Never smoker Alcohol: None Drugs: None - *Family History Maternal Family History: Family History (Last Reviewed 03/01/19 @ 00:05 by Kin Martinez DO) Brother CAD (coronary artery disease) Diabetes Myocardial infarction Father CAD (coronary artery disease) Other Family history of premature coronary heart disease History Items: Heart Disease Paternal Family History: Family History (Last Reviewed 03/01/19 @ 00:05 by Kin Martinez DO) Brother CAD (coronary artery disease) Diabetes Myocardial infarction Father CAD (coronary artery disease) Other Family history of premature coronary heart disease History Items: Heart Disease Review of Systems Constitutional: Reports: Malaise. Denies: Anorexia, Chills, Fever Eyes: Denies: Blurred vision, Double vision HEENT: Denies: Head Aches, Sinus Congestion, Sinus Drainage Cardiovascular: Reports: Chest Pain, Palpitations. Denies: Edema Respiratory: Denies: Cough, Shortness of breath at rest, Sputum production Gastrointestinal: Denies: Abdominal Pain, Nausea, Vomiting Genitourinary: Denies: Dysuria Musculoskeletal: Denies: Joint Pain, Joint Tenderness Skin: Denies: Rash, Wounds Neurological: Denies: Numbness, Tingling, Focal weakness Psychiatric: Denies: Anxiety, Depression Endocrine: Denies: Change in Body Habitus, Heat/ Cold Intolerance Hematologic/ Lymphatic: Denies: Easy Bruising, Easy Bleeding, Hx of blood clot Comment: All review systems are otherwise negative except for as mentioned above and in the HPI. VTE Information - Inpt Only VTE Present on Admission: No VTE Mechan Device Prophylaxis: None VTE Pharm Prophylaxis ordered?: No Reason prophylaxis not ordered:: Procedure Not Indicated Patient Problems: Active and Suspected Problems (Last Reviewed 02/04/19 @ 09:56 by Vy Mancilla) Paroxysmal atrial fibrillation with RVR (Acute) Atrial fibrillation with RVR (Acute) Hypokalemia (Acute) - Physical Exam Vitals/I&O's: Vital Signs Temp Pulse Resp BP Pulse Ox 36.3 C L 79 17 130/60 H 99 02/28/19 21:53 02/28/19 23:01 02/28/19 22:20 02/28/19 23:01 02/28/19 23:01 Oxygen Delivery Method Room Air Weight: 51.3 kg Body Mass Index (BMI) 20.7 General: Alert, Cooperative, No apparent distress HEENT: Atraumatic, Normocephalic, - - Masses. No icterus. Oral: Moist Mucosa, No Gingival or Mucosal Lesions/ Ulcerations Neck: No Nodes, Trachea Midline Lungs: Clear to auscultation, Normal air movement, No rhonchi, No wheeze, No rales Cardiovascular: Irregular Rate, - - irregularly irregular Abdomen: Bowel Sounds Present, Non Tender, Non-Distended Extremities: No edema, No Calf Tenderness Skin: No rashes, No breakdown Neurological: Deep Tendon Reflexes 2+/4 and Symmetrical, - - No clonus Psych/Mental Status: Normal Affect, Appropriate Laboratory Results 02/28/19 22:17: WBC 7.9, RBC 3.69 L, Hgb 11.2 L, Hct 34.3 L, MCV 93.0, MCH 30.4, MCHC 32.7, RDW Std Deviation 52.1 H, RDW Coeff of Zuleima 15.6 H, Plt Count 254, MPV 8.8, Immature Gran % (Auto) 0.400, Neut % (Auto) 47.5, Lymph % (Auto) 40.3, [place] % (Auto) 9.5, Eos % (Auto) 1.7, Baso % (Auto) 0.6, Absolute Neuts (auto) 3.7, Absolute Lymphs (auto) 3.17, Nucleated RBC % 0 02/28/19 22:17: Sodium 141, Potassium 2.8 L, Chloride 104, Carbon Dioxide 27.0, Anion Gap 10, BUN 19 H, Creatinine 0.92, Estim Creat Clear Calc 36.00, Est GFR (MDRD) Af Amer 74, Est GFR (MDRD) Non-Af 62, BUN/Creatinine Ratio 20.6 H, Glucose 149 H, Calcium 8.8, Troponin I < 0.015 EKG reviewed and showed atrial for ablation with RVR. No other acute changes noted. Subsequent telemetry shows rate controlled atrial fibrillation. Chest x-ray reviewed and showed normal airways without any pulmonary edema nor infiltrate. Assessment/Plan All Active Problems (Last Reviewed 02/04/19 @ 09:56 by Vy Mancilla) Paroxysmal atrial fibrillation with RVR (Acute) Atrial fibrillation with RVR (Acute) Hypokalemia (Acute) Productive cough (Acute) Atrial flutter (Acute) Sinus bradycardia (Acute) Chest pain (Resolved) 1. Atrial fibrillation with RVR Currently rate controlled Continue with metoprolol for now and monitor. Patient did receive 10 mg of IV diltiazem in the emergency room Previously, patient had been on factor X a inhibitor previously had been Eliquis. Not currently on her MAR. I do not see any indication why she should not be on it. Will resume apixaban Check an echocardiogram 2. Hypokalemia Potassium 2.8, only received 20 mg in the emergency room. We will give an additional 40 mEq. Check magnesium 3. Atypical chest pain Per the patient began after she took nitroglycerin and never took nitroglycerin because of chest pain because she just did not feel well with palpitations. We will cycle troponins but not pain do any additional work-up unless this become abnormal. 4. VTE prophylaxis: Low risk as patient will be anticoagulation and observation status. 5. Advanced care planning: Discussed with patient. Patient wishes to be full CODE STATUS at this time. As mentioned above. Patient seen and examined on February 28. Code Visit OBSV E&M: 49352 Initial observation care L3 - billing for 02/28/19
--- NOTE | 2019-03-01 00:49 | ECHOD_ITS ---
Reason For Study: Afib w RVR Procedure This was a 2D Doppler, Color Flow transthoracic echocardiogram. Exam performed portable in patient room. Left Ventricle Normal LV size. Left ventricular systolic function is normal. The estimated ejection fraction is 65 %. Unable to assess diastolic dysfunction due to arrhythmia. No regional wall motion abnormalities noted. Right Ventricle Normal RV size. Normal systolic function. Mitral Valve Bileaflet diffuse mitral valve thickening. Mild focal mitral valve calcification. Moderate (2+) eccentric mitral valve insufficiency. Tricuspid Valve Normal tricuspid valve. Mild (1+) tricuspid valve insufficiency. Pulmonary artery systolic pressure is 36 mmHg. Aortic Valve Trisinus/trileaflet aortic valve. Mild-Moderate (1-2+) eccentric aortic valve insufficiency. Pulmonic Valve Normal pulmonic valve. Great Vessels Normal aortic root. The pulmonary artery is normal size. Normal inferior vena cava. Pericardium/Pleural No pericardial effusion. MMode/2D Measurements & Calculations LVIDd: 3.8 cm IVSd: 0.99 cm Ao root diam: 3.4 cm LVIDs: 2.7 cm LVPWd: 0.81 cm RVDd: 2.4 cm FS: 31.0 % LAV(MOD-bp): 46.9 ml LVAd ap4: 19.3 cm2 SV(MOD-sp4): 27.0 ml LAV(MOD-bp) Indexed: 31.3 ml/m2 EDV(MOD-sp4): 47.3 ml LAV(MOD-sp2): 52.4 ml EDV(sp4-el): 49.4 ml LAV(MOD-sp4): 41.5 ml LVAs ap4: 11.6 cm2 ESV(MOD-sp4): 20.3 ml ESV(sp4-el): 20.3 ml EF(MOD-sp4): 57.1 % EF(sp4-el): 58.9 % SV(sp4-el): 29.1 ml LA dimension(2D): 4.2 cm LA A4 area: 16.0 cm2 RA A4 area: 18.1 cm2 Doppler Measurements & Calculations MV E max clementina: 93.6 cm/sec Ao V2 max: 122.9 cm/sec AI max clementina: 453.2 cm/sec Ao max P.1 mmHg AI max P.2 mmHg Ao V2 mean: 77.5 cm/sec Ao mean P.8 mmHg AI dec slope: 381.8 cm/sec2 Ao V2 VTI: 18.8 cm AI P1/2t: 347.7 msec LV V1 max: 82.4 cm/sec PA V2 max: 71.5 cm/sec TR max clementina: 285.8 cm/sec LV V1 max P.7 mmHg TR max P.7 mmHg Interpretation Summary Normal LV size. Left ventricular systolic function is normal. The estimated ejection fraction is 65 %. Unable to assess diastolic dysfunction due to arrhythmia. Bileaflet diffuse mitral valve thickening. Mild-Moderate (1-2+) eccentric aortic valve insufficiency. Ordering Physician: Kin Martinez Referring Physician: Rachel Bernabe Performed By: Alea Okeefe, ESHA, RVT
[2019-03-01] MEDS: Metoprolol(XL)Succ 50 MG Tablet PO (01:28)
[2019-03-01 05:18] LABS: Anion Gap 7 (5-15); BUN 16 mg/dL (7-18); BUN/Creat Ratio 19.1 RATIO (10-20); Calcium,Total 8.4 mg/dL (8.5-10.1); Chloride 108 mmol/L (98-107); Creatinine, Serum 0.84 mg/dL (0.55-1.02); EST Glomerular Filtration Rate 69 mL/min (>60); Est Glom Filt Rate - Afr Amer 83 mL/min (>60); Estimated Creatinine Clearance 38.41 ml/min; Glucose 104 mg/dL (74-106); Magnesium 1.6 mg/dL (1.6-2.6); Potassium 3.6 mmol/L (3.5-5.1); Sodium Level 144 mmol/L (136-145)
[2019-03-01] MEDS: amLODIPine 5 MG Tablet PO (11:10)
[2019-03-01] MEDS: Isosorbide Mononitrate 60 MG Tablet PO (11:10)
[2019-03-01] MEDS: Omega-3 Acid Ethyl Esters 1 GM Capsule PO (11:10)
[2019-03-01] MEDS: Aspirin E.C. 81 MG Tablet PO (11:10)
[2019-03-01] MEDS: Latanoprost 0.005% 1 Bottle 1 DRP OPHTHALMIC (11:11)
[2019-03-01] MEDS: APIXABAN 2.5 MG TABLET PO (11:11)
[2019-03-01] MEDS: Calcium Carbonate 500 MG Tablet PO (11:11)
--- NOTE | 2019-03-01 11:44 | PCM.PN.HOSP ---
Patient Problems: Active and Suspected Problems (Last Reviewed 03/01/19 @ 00:05 by Kin Martinez DO) Paroxysmal atrial fibrillation with RVR (Acute) Atrial fibrillation with RVR (Acute) Hypokalemia (Acute) Subjective: Patient seen and examined. She was admitted in the early hours of today with a complaint of palpitations and was found to be in A. fib with RVR. She received a bolus of Cardizem heart rate normalized. She was hypokalemic with potassium of 2.8 and was given oral potassium in the ED. Patient has no complaints this morning and feels well. She denies any palpitations and review of systems otherwise negative. Labs and vitals reviewed heart rate has remained controlled. Labs and vitals reviewed. Serum is back to normal after replacement. Vitals/I&O's: Vital Signs Temp Pulse Resp BP Pulse Ox 97.6 F L 76 16 132/71 H 98 03/01/19 11:05 03/01/19 11:05 03/01/19 11:05 03/01/19 11:05 03/01/19 11:05 Oxygen Delivery Method Room Air Weight: 107 lb 9.369 oz Body Mass Index (BMI) 19.6 General: Alert, Oriented x3, Cooperative, No apparent distress HEENT: Atraumatic, PERRLA, EOMI, Normocephalic Oral: Moist Mucosa Neck: Supple, No JVD, Negative Carotid Bruits Lungs: Clear to auscultation, Normal air movement, No rhonchi, No wheeze, No rales Cardiovascular: Normal S1, Normal S2, No murmurs, Irregular Rate Abdomen: Bowel Sounds Present, Soft, Non Tender, Non-Distended, No Hepato-splenomegaly Extremities: No clubbing, No cyanosis, No edema, Capillary Refill Less than 3 Seconds Skin: No rashes, No breakdown Musculoskeletal: No Tenderness to Palpation of Joints or Extremities Lymphatic: No Cervical, Supraclavicular, or Inguinal Adenopathy Neurological: Cranial nerves II-XII grossly intact, Neuro grossly intact, Motor Exam 5/5 strength throughout Psych/Mental Status: Normal Affect, Appropriate, Alert and oriented to time, place, person, mood and affect Laboratory Results 02/28/19 22:17: WBC 7.9, RBC 3.69 L, Hgb 11.2 L, Hct 34.3 L, MCV 93.0, MCH 30.4, MCHC 32.7, RDW Std Deviation 52.1 H, RDW Coeff of Zuleima 15.6 H, Plt Count 254, MPV 8.8, Immature Gran % (Auto) 0.400, Neut % (Auto) 47.5, Lymph % (Auto) 40.3, [place] % (Auto) 9.5, Eos % (Auto) 1.7, Baso % (Auto) 0.6, Absolute Neuts (auto) 3.7, Absolute Lymphs (auto) 3.17, Nucleated RBC % 0 02/28/19 22:17: Sodium 141, Potassium 2.8 L, Chloride 104, Carbon Dioxide 27.0, Anion Gap 10, BUN 19 H, Creatinine 0.92, Estim Creat Clear Calc 36.00, Est GFR (MDRD) Af Amer 74, Est GFR (MDRD) Non-Af 62, BUN/Creatinine Ratio 20.6 H, Glucose 149 H, Calcium 8.8, Troponin I < 0.015 03/01/19 01:26: Troponin I < 0.015 03/01/19 04:46: Sodium 144, Potassium 3.6, Chloride 108 H, Carbon Dioxide 29.0, Anion Gap 7, BUN 16, Creatinine 0.84, Estim Creat Clear Calc 38.41, Est GFR (MDRD) Af Amer 83, Est GFR (MDRD) Non-Af 69, BUN/Creatinine Ratio 19.1, Glucose 104, Calcium 8.4 L, Magnesium 1.6, Troponin I < 0.015 Diagnostic Data Chest X-Ray 02/28/19 22:09 IMPRESSION: Mild CHF. at 2254 Reported and signed by: Je Lynne MD Electronically Signed: Je Lynne MD at 22:53 EST Tel , Service support , Current Medications Acetaminophen (Tylenol) 650 mg PO Q6H PRN PRN PRN Reason: Pain Score 1-10/Temp > 100.7 F Amlodipine Besylate (Norvasc) 5 mg PO DAILY [facility] Last Admin: 03/01/19 11:10 Dose: 5 mg Documented by: Apixaban (Eliquis) 2.5 mg PO BID [facility] Last Admin: 03/01/19 11:11 Dose: 2.5 mg Documented by: Aspirin (Ecotrin) 81 mg PO QODAY@0800 [facility] Last Admin: 03/01/19 11:10 Dose: 81 mg Documented by: Calcium Carbonate (Tums) 500 mg PO DAILY [facility] Last Admin: 03/01/19 11:11 Dose: 500 mg Documented by: Dextrose (D50w Syringe) 0 gm IV X1 PRN; Protocol PRN Reason: Hypoglycemia Glucagon () 1 mg IM .X1 PRN PRN Reason: Hypoglycemia Sodium Chloride () 250 mls @ 15 mls/hr IV .[id number] PRN PRN Reason: Saline Flush Isosorbide Mononitrate (Imdur) 60 mg PO QAM [facility] Last Admin: 03/01/19 11:10 Dose: 60 mg Documented by: Latanoprost (Xalatan Opthalmic) 1 drop OPHTHALMIC DAILY [facility] Last Admin: 03/01/19 11:11 Dose: 1 drop Documented by: Melatonin (Melatonin) 3 mg PO QHS PRN PRN PRN Reason: INSOMNIA Metoprolol Succinate (Toprol Xl (Beta Jt)) 50 mg PO DAILY [facility] Last Admin: 03/01/19 01:28 Dose: 50 mg Documented by: Nitroglycerin (Nitrostat) 0.4 mg SUBLINGUAL Q5M PRN PRN Reason: Chest Pain [id number] Ethyl Esters (Lovaza) 1 gm PO DAILY [facility] Last Admin: 03/01/19 11:10 Dose: 1 gm Documented by: Ondansetron HCl (Zofran) 4 mg IV Q8H PRN PRN PRN Reason: NAUSEA/VOMITING Pantoprazole Sodium (Protonix) 20 mg PO DAILY PRN PRN PRN Reason: GERD Ramipril (Altace) 10 mg PO BID [facility] Sodium Chloride () 10 - 40 ml IV UD PRN PRN Reason: SALINE FLUSH STROKE Vital Signs/Narrative: Vital Signs Temp Pulse Resp BP Pulse Ox 03/01/19 11:05 97.6 F L 76 16 132/71 H 98 Medical Necessity - Tobacco Use Smoking Status: Never smoker Assessment/Plan All Active Problems (Last Reviewed 03/01/19 @ 00:05 by Kin Martinez DO) Paroxysmal atrial fibrillation with RVR (Acute) Atrial fibrillation with RVR (Acute) Hypokalemia (Acute) Productive cough (Acute) Atrial flutter (Acute) Sinus bradycardia (Acute) Chest pain (Resolved) 1. Afib with RVR rate controlled after she received a dose of IV cardizem bolus in the ED on metoprolol 2D echo pending CHADVASC score is ~ 3 (age and gender); used to be on eliquis, but per cardiology outpatient notes, this was discontinued due to epistaxis on aspirin CXR showed evidence of mild CHF, so will check BNP 2. Acute on chronic diastolic CHF exacerbation BNP is >600 2D echo showed EF of 65%, unable to assess diastolic dysfunction due to arrhhythmia CXR as under 1 diurese with IV lasix 40mg bid strict input output chart; fluid restriction to 1500cc daily 3. Hypokalemia: resolved. K was 2.8, now up to 3.6 with replacement 4. Atypical chest pain: Points x3 were negative and EKG showed no acute ST changes. Was thought to be due to the palpitations from A. fib with RVR. DVT prophylaxis: Lovenox Code Visit OBSV E&M: 22860 Subsequent observation care L3
[2019-03-01 13:33] LABS: BNP,B-Type NATRIURETIC PEPTIDE 622.6 pg/mL (0-100)
[2019-03-01] MEDS: 0.9% Saline Lock 10 ML Syringe IV (14:25)
--- NOTE | 2019-03-01 14:28 | CHAPLAIN ---
Type of Pastoral Visit _x__ Initial Visit ___ Follow-up Visit ___ On-call Visit ___ General Patient Visit ___ Spiritual Assessment ___ Family Conference ___ Bereavement ___ Rapid Response ___ Code Blue ___ Other (describe below) Pastoral Care Referral From _x__ Patient ___ Family ___ Nurse ___ Physician ___ Procedure Manager ___ Senior Talent Acquisition Specialist ___ Other (describe below) Sacrament/Intervention _x__ Active listening ___ Anointing ___ Scientologist ___ Bereavement ___ Communion ___ Arabella exploration ___ _x__ Life review _x__ Prayer ___ Reconciliation ___ Sacrament of Sick _x__ Supportive presence ___ Wedding ___ Other (describe below) Pastoral Comments
[2019-03-01] MEDS: Furosemide 40 MG/4 ML Vial IV (14:33)
[2019-03-01] MEDS: Ramipril 10 MG Capsule PO (22:36)
[2019-03-02] VITALS (13 sets, daily range): BP systolic 109–137; BP diastolic 61–78; PULSE 78–129; RESP 14–16; TEMP 36.4–36.8; O2SAT 93–99
[2019-03-02 06:20] LABS: Absolute Lymphocyte Count 2.42 X10^3/uL (0.83-4.51); Absolute Neutrophil Count 2.6 X10^3/uL (2.0-7.7); Basophil# 0.04 X10^3/uL; Basophil% 0.7 % (0-1); Eosinophil# 0.12 X10^3/uL; Eosinophils% 2.1 % (0-5); Hematocrit 34.5 % (37-47); Hemoglobin 11.1 g/dL (12.0-15.0); Lymphocyte # 2.42 X10^3/ul (4.0); Lymphocyte % 41.7 % (19-41); Mean Corp Hgb Conc 32.2 g/dL (32-36); Mean Corpuscular Hgb 30.1 pg (27.0-32.0); Mean Corpuscular Volume 93.5 fL (81-99); Mean Platelet Vol. 9.1 fl (6.2-12.0); Monocyte# 0.57 X10^3/uL; Monocyte% 9.8 % (0-10); NRBC Flagged by Analyzer 0 % (0-5); Neutrophil # 2.64 X10^3/uL (2.7-7.7); Neutrophil % 45.4 % (47-70); Platelet Count 261 K/mm3 (150-450); RBC Distribution Width CV 15.6 % (11.6-14.6); RBC Distribution Width SD 53.1 fl (35.1-43.9); Red Blood Count 3.69 M/mm3 (4.2-5.4); White Blood Count 5.8 K/mm3 (4.4-11.0)
[2019-03-02 06:46] LABS: Anion Gap 6 (5-15); BUN 17 mg/dL (7-18); BUN/Creat Ratio 19.6 RATIO (10-20); Chloride 106 mmol/L (98-107); Creatinine, Serum 0.87 mg/dL (0.55-1.02); EST Glomerular Filtration Rate 66 mL/min (>60); Est Glom Filt Rate - Afr Amer 80 mL/min (>60); Estimated Creatinine Clearance 37.08 ml/min; Glucose 117 mg/dL (74-106); Magnesium 1.9 mg/dL (1.6-2.6); Sodium Level 140 mmol/L (136-145)
[2019-03-02] MEDS: Potassium Chloride 10mEq/100mL 10 MEQ/100 ML IV.SOLN. 100 MEQ IV BOLUS ×4 (08:44→11:48)
[2019-03-02] MEDS: Calcium Carbonate 500 MG Tablet PO (08:48)
[2019-03-02] MEDS: Isosorbide Mononitrate 60 MG Tablet PO (08:48)
[2019-03-02] MEDS: Ramipril 10 MG Capsule PO ×2 (08:48→21:19)
[2019-03-02] MEDS: Omega-3 Acid Ethyl Esters 1 GM Capsule PO (08:48)
[2019-03-02] MEDS: amLODIPine 5 MG Tablet PO (08:49)
[2019-03-02] MEDS: Furosemide 40 MG/4 ML Vial IV (08:49)
[2019-03-02] MEDS: Latanoprost 0.005% 1 Bottle 1 DRP OPHTHALMIC (08:49)
[2019-03-02] MEDS: Metoprolol(XL)Succ 50 MG Tablet PO ×2 (08:49→21:19)
--- NOTE | 2019-03-02 11:50 | CASEMGMT ---
This RN CM to room with LEVY form at this time, explanation done-pt voices understanding, and LEVY form signed at this time. Original to chart and copy to pt at this time. Pt voices no further questions/concerns/needs at this time and states no concerns with going home at time of discharge. [place] [place]
--- NOTE | 2019-03-02 12:25 | PN_ITS ---
Patient Problems: Active and Suspected Problems (Last Reviewed 03/01/19 @ 00:05 by Kin Martinez DO) Paroxysmal atrial fibrillation with RVR (Acute) Atrial fibrillation with RVR (Acute) Hypokalemia (Acute) Subjective: Patient seen and examined. She had no complaints this morning. Patient diuresed significantly overnight. She denies any palpitations or dizziness, chest pain, abdominal pain, diarrhea vomiting. Review of systems otherwise negative. Labs and vitals reviewed. Potassium is noted to be low at 3 today. Plan was to discharge patient today where patient subsequently became even more tachycardic after review with heart rate bouncing between the high 120s in the 110s. Cardiology consult placed. Vitals/I&O's: Vital Signs Temp Pulse Resp BP Pulse Ox 97.9 F 106 H 16 126/68 H 99 03/02/19 08:38 03/02/19 11:50 03/02/19 08:38 03/02/19 11:50 03/02/19 08:38 Oxygen Delivery Method Room Air Weight: 107 lb 9.369 oz Body Mass Index (BMI) 19.6 Orthostatic Vital Signs Start: 03/02/19 11:50 Freq: q24h Status: Active Protocol: Activity Type Activity Date Activity User E-Sign Co-Sign Detail Recorded Client Recorded Date Recorded By Document 03/02/19 11:50 [facility] [id number] 03/02/19 11:55 [facility] 03/02/19 11:50 Orthostatic Vitals Standing -Blood Pressure (90/60-120/80) 124/67 H -Extremity Use Left Arm -Pulse Rate (60-100) 124 H Sitting -Blood Pressure (90/60-120/80) 124/78 H -Extremity Use Left Arm -Pulse Rate (60-100) 115 H Lying -Blood Pressure (90/60-120/80) 126/68 H -Extremity Use Left Arm -Pulse Rate (60-100) 106 H Intake and Output for Last 24 Hours 02/28/19 03/01/19 03/02/19 23:59 23:59 23:59 Intake Total 811.0 / 811.0 740 / 740 Output Total 1999 225 / 225 Balance -1189.0 / -1189.0 515 / 515 General: Alert, Oriented x3, Cooperative, No apparent distress HEENT: Atraumatic, PERRLA, EOMI, Normocephalic Oral: Moist Mucosa Neck: Supple, No JVD, Negative Carotid Bruits Lungs: Clear to auscultation, Normal air movement, No rhonchi, No wheeze, No rales Cardiovascular: Normal S1, Normal S2, No murmurs, Irregular Rate, tachycardic Abdomen: Bowel Sounds Present, Soft, Non Tender, Non-Distended, No Hepato- splenomegaly Extremities: No clubbing, No cyanosis, No edema, Capillary Refill Less than 3 Seconds Skin: No rashes, No breakdown Musculoskeletal: No Tenderness to Palpation of Joints or Extremities Lymphatic: No Cervical, Supraclavicular, or Inguinal Adenopathy Neurological: Cranial nerves II-XII grossly intact, Neuro grossly intact, Motor Exam 5/5 strength throughout Psych/Mental Status: Normal Affect, Appropriate, Alert and oriented to time, place, person, mood and affect Laboratory Results 03/01/19 04:46: B-Natriuretic Peptide 622.6 H 03/02/19 05:45: WBC 5.8, RBC 3.69 L, Hgb 11.1 L, Hct 34.5 L, MCV 93.5, MCH 30.1, MCHC 32.2, RDW Std Deviation 53.1 H, RDW Coeff of [place]ule[place] 15.6 H, Plt Count 261, MPV 9.1, Immature Gran % (Auto) 0.300, Neut % (Auto) 45.4 L, Lymph % (Auto) 41.7 H, [place] % (Auto) 9.8, Eos % (Auto) 2.1, Baso % (Auto) 0.7, Absolute Neuts (auto) 2.6, Absolute Lymphs (auto) 2.42, Nucleated RBC % 0 03/02/19 05:45: Sodium 140, Potassium 3.0 L, Chloride 106, Carbon Dioxide 28.0, Anion Gap 6, BUN 17, Creatinine 0.87, Estim Creat Clear Calc 37.08, Est GFR (MDRD) Af Amer 80, Est GFR (MDRD) Non-Af 66, BUN/Creatinine Ratio 19.6, Glucose 117 H, Calcium 9.0, Magnesium 1.9 Diagnostic Data Chest X-Ray 02/28/19 22:09 IMPRESSION: Mild CHF. at 2254 Reported and signed by: Je Lynne MD Electronically Signed: Je Lynne MD at 22:53 EST Tel , Service support , Current Medications Acetaminophen (Tylenol) 650 mg PO Q6H PRN PRN PRN Reason: Pain Score 1-10/Temp > 100.7 F Amlodipine Besylate (Norvasc) 5 mg PO DAILY COUNTS INCLUDE 234 BEDS AT THE [facility] Last Admin: 03/02/19 08:49 Dose: 5 mg Documented by: Aspirin (Ecotrin) 81 mg PO QODAY@0800 COUNTS INCLUDE 234 BEDS AT THE [facility] Last Admin: 03/01/19 11:10 Dose: 81 mg Documented by: Calcium Carbonate (Tums) 500 mg PO DAILY COUNTS INCLUDE 234 BEDS AT THE [facility] Last Admin: 03/02/19 08:48 Dose: 500 mg Documented by: Dextrose (D50w Syringe) 0 gm IV X1 PRN; Protocol PRN Reason: Hypoglycemia Furosemide (Lasix) 40 mg IV BID@1000,1800 COUNTS INCLUDE 234 BEDS AT THE [facility] Last Admin: 03/02/19 08:49 Dose: 40 mg Documented by: Glucagon () 1 mg IM .X1 PRN PRN Reason: Hypoglycemia Sodium Chloride () 250 mls @ 15 mls/hr IV .[id number] PRN PRN Reason: Saline Flush Last Admin: 03/02/19 09:49 Dose: 15 mls/hr Documented by: Isosorbide Mononitrate (Imdur) 60 mg PO QAM COUNTS INCLUDE 234 BEDS AT THE [facility] Last Admin: 03/02/19 08:48 Dose: 60 mg Documented by: Latanoprost (Xalatan Opthalmic) 1 drop OPHTHALMIC DAILY COUNTS INCLUDE 234 BEDS AT THE [facility] Last Admin: 03/02/19 08:49 Dose: 1 drop Documented by: Melatonin (Melatonin) 3 mg PO QHS PRN PRN PRN Reason: INSOMNIA Metoprolol Succinate (Toprol Xl (Beta Jt)) 50 mg PO DAILY COUNTS INCLUDE 234 BEDS AT THE [facility] Last Admin: 03/02/19 08:49 Dose: 50 mg Documented by: Nitroglycerin (Nitrostat) 0.4 mg SUBLINGUAL Q5M PRN PRN Reason: Chest Pain [id number] Ethyl Esters (Lovaza) 1 gm PO DAILY COUNTS INCLUDE 234 BEDS AT THE [facility] Last Admin: 03/02/19 08:48 Dose: 1 gm Documented by: Ondansetron HCl (Zofran) 4 mg IV Q8H PRN PRN PRN Reason: NAUSEA/VOMITING Pantoprazole Sodium (Protonix) 20 mg PO DAILY PRN PRN PRN Reason: GERD Ramipril (Altace) 10 mg PO BID [facility] Last Admin: 03/02/19 08:48 Dose: 10 mg Documented by: Sodium Chloride () 10 - 40 ml IV UD PRN PRN Reason: SALINE FLUSH Last Admin: 03/01/19 14:25 Dose: 10 ml Documented by: STROKE Vital Signs/Narrative: Vital Signs Temp Pulse Pulse Pulse Pulse Resp BP 03/02/19 11:50 106 H 115 H 124 H 03/02/19 11:04 129 H 03/02/19 08:49 101 H 03/02/19 08:38 97.9 F 101 H 16 127/75 H BP BP BP Pulse Ox 03/02/19 11:50 126/68 H 124/78 H 124/67 H 03/02/19 11:04 03/02/19 08:49 03/02/19 08:38 99 Medical Necessity - Tobacco Use Smoking Status: Never smoker Assessment/Plan All Active Problems (Last Reviewed 03/01/19 @ 00:05 by Kin Martinez DO) Paroxysmal atrial fibrillation with RVR (Acute) Atrial fibrillation with RVR (Acute) Hypokalemia (Acute) Productive cough (Acute) Atrial flutter (Acute) Sinus bradycardia (Acute) Chest pain (Resolved) 1. Afib with RVR * heart rate went back up to the 120s this morning. potassium of 3 is likely contributing, and is being replaced.' * on metoprolol * 2D echo: EF of 65%, unable to assess diastolic dysfunction due to arrhythmias * not on anticoagulation o/a of history of epistaxis in the past * on aspirin * consult cardiology in light of poorly controlled heart rate * 2. Acute on chronic diastolic CHF exacerbation * BNP is >600 * 2D echo showed EF of 65%, unable to assess diastolic dysfunction due to arrhhythmia * CXR as under 1 * on IV lasix 40mg bid * strict input output chart; fluid restriction to 1500cc daily * urine output over last 24 hours was 2l, and weight has gone down from 113 to 107 pounds. * 3. Hypokalemia: K is 3 today. Will replace and monitor 4. Atypical chest pain: resolved. DVT prophylaxis: Lovenox Code Visit OBSV E&M: 59857 Subsequent observation care L3
[2019-03-02 13:44] LABS: Potassium 3.6 mmol/L (3.5-5.1)
[2019-03-02] MEDS: Enoxaparin 40 MG/0.4 ML Syringe SC (13:59)
--- NOTE | 2019-03-02 15:18 | PCM.CONS.C ---
Problem List (1) Atrial fibrillation with RVR Status: Acute (2) CAD in [place] artery Status: Chronic (3) Presence of stent in coronary artery Status: Chronic Comment: PTCA/Stent to SVG of OM2 11/13/11 (4) Aortocoronary bypass status Status: Chronic Comment: PRO to LAd, SVg to distal LCFX, SVG to RCA 2009 (5) Chronic diastolic (congestive) heart failure Status: Chronic (6) Valvular heart disease Status: Chronic (7) Thoracic aortic aneurysm without rupture Status: Chronic (8) Hyperlipidemia Status: Chronic Qualifiers: Hyperlipidemia type: mixed hyperlipidemia Qualified Code(s): E78.2 - Mixed hyperlipidemia (9) Hypertension Status: Chronic Qualifiers: Hypertension type: essential hypertension Qualified Code(s): I10 - Essential (primary) hypertension (10) Hypokalemia Status: Acute (11) Diarrhea Status: Acute Reason for Consult Date of Consultation: 03/02/19 History of Present Illness: The patient is a 83 year old white female with a past medical history of CAD, PCI, CABG, valvular heart disease, atrial fibrillation, chronic diastolic mediated CHF, thoracic aortic aneurysm without rupture, hyperlipidemia, hypertension, who presents for evaluation for her atrial fibrillation with RVR in the setting of hypokalemia and diarrhea. The patient stated that she noted approximately 2 days ago her heart rate was elevated. Based upon her heart rate being elevated and associated symptoms in her chest she elected to present to the hospital yesterday for further evaluation. She was found to be in atrial fibrillation. She underwent cardiac enzymes which were negative. Her ECG is demonstrated atrial fibrillation with RVR with nonspecific ST and T wave abnormality. She was also found to be hypokalemic. She has been continuing medical therapy and potassium supplementation. She states she denies other forms of chest discomfort supper than her sensation of her elevated heart rate. She has had no acute orthopnea or PND. She states she does intermittently have lower extremity peripheral pitting edema more so on one side than the other. She has denied near syncope or syncope. She states 1 of her other main concerns has been ongoing diarrhea. She states she will have intermittent loose bowel movements. She states thus far there is been no explanation for these events. Is being in the hospital she has also undergone evaluation with a transthoracic echocardiogram. The results are as noted below. [] Past Medical History Allergies/Adverse Reactions: Allergies alendronate sodium [From Fosamax] Allergy (Verified 02/28/19 21:57) Unknown atorvastatin calcium [From Lipitor] Allergy (Verified 02/28/19 21:57) Unknown colestipol HCl [From Colestid] Allergy (Verified 02/28/19 21:57) Unknown cortisone acetate [From Cortone] Allergy (Verified 02/28/19 21:57) Unknown ezetimibe [From Zetia] Allergy (Verified 02/28/19 21:57) Unknown gabapentin Allergy (Verified 02/28/19 21:57) Unknown goserelin acetate [From Zoladex] Allergy (Verified 02/28/19 21:57) Unknown nabumetone Allergy (Verified 02/28/19 21:57) Other paroxetine HCl [From Paxil] Allergy (Verified 02/28/19 21:57) Unknown rosuvastatin calcium [From Crestor] Allergy (Verified 02/28/19 21:57) Unknown sertraline HCl [From Zoloft] Allergy (Verified 02/28/19 21:57) Unknown venlafaxine HCl [From Effexor] Allergy (Verified 02/28/19 21:57) Unknown hydrocodone Adverse Reaction (Intermediate, Verified 02/28/19 21:57) Unknown acetaminophen [From Vicodin] Adverse Reaction (Verified 02/28/19 21:57) KEEPS ME AWAKE carvedilol Adverse Reaction (Verified 02/28/19 21:57) Unknown hydrocodone bitartrate [From Vicodin] Adverse Reaction (Verified 02/28/19 21:57) KEEPS ME AWAKE venlafaxine Adverse Reaction (Severe, Uncoded 02/28/19 21:57) Unknown Home Medications: Ambulatory Orders Medication Instructions Recorded Calcium Carbonate [Calcium] 600 mg PO DAILY 03/28/15 [place]-3 Fatty Acids [Fish Oil] 1,000 mg PO DAILY 03/28/15 Nitroglycerin (INPATIENT USE) 0.4 mg SUBLINGUAL Q5M PRN #6 tab 05/23/17 [Nitrostat] esomeprazole magnesium 20 mg 20 mg PO QDAY PRN 09/05/17 capsule,delayed release aspirin 81 mg tablet,delayed 81 mg PO Q OTHER DAY tab 04/13/18 release potassium 99 mg tablet 99 mg PO DAILY 04/13/18 metoprolol succinate ER 50 mg 50 mg PO DAILY #90 tab 06/23/18 tablet,extended release 24 hr amlodipine 5 mg tablet 5 mg PO QDAY #90 tab 09/30/18 latanoprost 0.005 % eye drops 1 drop OPHTHALMIC QHS #8 ml 09/30/18 ramipril 10 mg capsule 10 mg PO BID #180 cap 09/30/18 isosorbide mononitrate ER 60 mg 60 mg PO QAM #90 tab 01/04/19 tablet,extended release 24 hr Furosemide [Lasix] 40 mg PO DAILY #30 tab 03/02/19 Past Medical History (Chronic Problems): Chronic Problems (Last Reviewed 03/01/19 @ 00:05 by Kin Martinez DO) CAD in [place] artery (Chronic) Left carotid bruit (Chronic) Valvular heart disease (Chronic) Carotid artery disease (Chronic) Thoracic aortic aneurysm without rupture (Chronic) Atherosclerotic heart disease of [place] coronary artery without angina pectoris (Chronic) PRO to LAD, SVG to distal LCFX, SVG to RCA 2009; PTCA/Stent to SVG of [facility] 11/13/11 Aortocoronary bypass status (Chronic ~2009) PRO to LAd, SVg to distal LCFX, SVG to RCA 2009 Chronic diastolic (congestive) heart failure (Chronic) Paroxysmal atrial fibrillation (Chronic) Presence of stent in coronary artery (Chronic ~11/13/11) PTCA/Stent to SVG of [facility] 11/13/11 Hypertension (Chronic) Hyperlipidemia (Chronic) Aortic insufficiency (Chronic) Mild Mitral valve regurgitation (Chronic) Aortic valve disorder (Chronic) Surgical History: angioplasty, coronary bypass surgery - Coronary artery bypass grafting was done in 2011. She also had a coronary stent the following year., total knee arthroplasty - the, - Psychiatric History: No pertinent psych hx [employer] History: No pertinent [employer] history - *Family History Maternal Family History: Family History (Last Reviewed 03/01/19 @ 00:05 by Kin Martinez DO) Brother CAD (coronary artery disease) Diabetes Myocardial infarction Father CAD (coronary artery disease) Other Family history of premature coronary heart disease History Items: Heart Disease Paternal Family History: Family History (Last Reviewed 03/01/19 @ 00:05 by Kin Martinez DO) Brother CAD (coronary artery disease) Diabetes Myocardial infarction Father CAD (coronary artery disease) Other Family history of premature coronary heart disease History Items: Heart Disease Lives: With Family Smoking Status: Never smoker Alcohol: None Drugs: None Review of Systems - Review of Systems General: Denies: Fever, Night Sweats, Fatigue Cardiovascular: Reports: Palpitations. Denies: Chest Discomfort, Shortness of Breath, Orthopnea, PND, Peripheral Edema, Lightheadedness, Dizziness, Near Syncope, Syncope Respiratory: Denies: Cough, Sputum Production, Hemoptysis Gastrointestinal: Reports: Diarrhea. Denies: Hematemesis, Hematochezia, Melena Genitourinary: Denies: Dysuria, Hematuria Skin: Denies: Rash Subjectve: This is an 83-year-old thin white female who appears to be resting comfortably at the moment in no acute distress. Objective: Vital Signs Temp Pulse Resp BP Pulse Ox 98.2 F 115 H 14 111/74 98 03/02/19 14:07 03/02/19 15:05 03/02/19 14:07 03/02/19 14:07 03/02/19 14:07 Oxygen Delivery Method Room Air Weight: 107 lb 9.369 oz Body Mass Index (BMI) 19.6 Orthostatic Vital Signs Start: 03/02/19 11:50 Freq: q24h Status: Active Protocol: Activity Type Activity Date Activity User E-Sign Co-Sign Detail Recorded Client Recorded Date Recorded By Document 03/02/19 11:50 [facility] [id number] 03/02/19 11:55 [facility] 03/02/19 11:50 Orthostatic Vitals Standing -Blood Pressure (90/60-120/80 mm Hg) 124/67 H -Extremity Use Left Arm -Pulse Rate (60-100 beats/min) 124 H Sitting -Blood Pressure (90/60-120/80 mm Hg) 124/78 H -Extremity Use Left Arm -Pulse Rate (60-100 beats/min) 115 H Lying -Blood Pressure (90/60-120/80 mm Hg) 126/68 H -Extremity Use Left Arm -Pulse Rate (60-100 beats/min) 106 H Intake and Output for Last 24 Hours 02/28/19 03/01/19 03/02/19 23:59 23:59 23:59 Intake Total 811.0 / 811.0 888.75 / 888.75 Output Total 1999 225 / 225 Balance -1189.0 / -1189.0 663.75 / 663.75 General: Awake, Alert, Oriented x 3, Cooperative, No Acute Distress HEENT: Atraumatic, Normocephalic, PERRL, EOMI, Sclera Non Icteric Oral: Moist Mucosa Neck: Supple, Good ROM, No JVD Lungs: Clear to auscultation Cardiovascular: Irregular Rhythm, Normal S1, Normal S2 Murmur Murmur: Grade 2/6, Mid Systolic, LLSB, LVOT, Sternal Notch Abdomen: Bowel Sounds Present, Soft, Non Tender Extremities: No edema Neurological: No Focal Motor or Sensory Deficit Psych/Mental Status: Appropriate 03/02/19 05:45: WBC 5.8, RBC 3.69 L, Hgb 11.1 L, Hct 34.5 L, MCV 93.5, MCH 30.1, MCHC 32.2, Plt Count 261, MPV 9.1, Immature Gran % (Auto) 0.300, Neut % (Auto) 45.4 L, Lymph % (Auto) 41.7 H, [place] % (Auto) 9.8, Eos % (Auto) 2.1, Baso % (Auto) 0.7, Absolute Neuts (auto) 2.6, Nucleated RBC % 0 03/02/19 05:45: Sodium 140, Potassium 3.0 L, Chloride 106, Carbon Dioxide 28.0, Anion Gap 6, BUN 17, Creatinine 0.87, Est GFR (MDRD) Af Amer 80, Est GFR (MDRD) Non-Af 66, BUN/Creatinine Ratio 19.6, Glucose 117 H, Calcium 9.0, Magnesium 1.9 03/02/19 13:09: Potassium 3.6 Rhythm: Atrial fibrillation EKG: Atrial fibrillation with nonspecific ST/T wave abnormality ECHO: Interpretation Summary Normal LV size. Left ventricular systolic function is normal. The estimated ejection fraction is 65 %. Unable to assess diastolic dysfunction due to arrhythmia. [place] diffuse mitral valve thickening. Mild-Moderate (1-2+) eccentric aortic valve insufficiency. Stress Test: 2?2?18 Stress Test Report Pharmacologic myocardial perfusion stress test 81-year-old lady with a history of chest pain. Stress protocol: Resting EKG demonstrates normal sinus rhythm with rate of 73 bpm. Normal intervals are noted. Resting blood pressure is 174/82 mmHg. 0.4 mg regadenoson was infused per usual protocol followed by Intravenous saline flush injection. Continuous EKG monitoring was performed. The maximum heart rate attained was 104 bpm which was 74% of the maximum predicted heart rate. The maximum workload attained was 1 metabolic equivalent. At rest and at peak infusion there were no ST or T-wave changes noted to suggest abnormal flow reserve. No clinical angina was noted. The resting blood pressure is 174/82 with a final blood pressure of 140/70 mmHg. Myocardial perfusion protocol: 11.1 mCi of technetium 99m sestamibi was injected at rest. 0.4 mg of regadenoson was infused per usual protocol. At peak infusion 32.9 mCi of technetium 99m sestamibi was injected. Stress images were obtained. Stress and rest images were reconstructed and compared in the short axis vertical long and horizontal long axis. Gated images were also obtained. Perfusion SPECT analysis: Review of the stress images demonstrate normal uptake of tracer noted in all areas of the myocardium the resting images similarly demonstrated normal uptake of tracer noted in all areas of the myocardium. No areas of reversibility were noted suggest ischemia no previous infarct was noted. Gated SPECT analysis: Ejection fraction is noted to be 82%. Conclusion: Normal pharmacologic myocardial perfusion stress test. Preserved ejection fraction. Cardiac Cath: 05-22-17 Elevated left ventricular end-diastolic pressure Normal LV size, wall motion, and systolic function LVEF of 65% [place] multivessel CAD PRO to the LAD patent SVG to OM1 stented and patent SVG to right PDA patent Aortic root dilated Mild to moderate AI Mild to moderate MR Left subclavian artery ulcerated appearing plaque Left vertebral artery ostial appearing 75% stenosis CXR: Per radiology: Mild CHF : Please see official report Assessment/Plan 1. Atrial fibrillation with RVR At the present time the patient does have a history of atrial fibrillation. Her atrial fibrillation may be exacerbated by concerns of her underlying diarrhea and hypokalemia. At the moment she is being monitored. She will continue rate control therapy. Her beta-danica schedule will be altered to assist with rate control. She will also continue electrolyte supplementation. She has had issues with anticoagulants in the past with respect to epistaxis. She has not wanted to go back on anticoagulant therapy. 2. CAD status post PCI status post CABG The patient has a history of extensive underlying coronary artery disease and revascularization therapy. Her most recent noninvasive and invasive studies are as noted. At the moment she appears without any acute symptoms and her troponin I levels have been negative. Thus she will continue medical therapy with adjustment as needed. 3. Valvular heart disease She will continue to be followed by history, exam, and echocardiogram as deemed appropriate. 4. Chronic diastolic mediated CHF At the moment she does not appear to be volume overloaded. She will continue medical therapy with adjustment of her doses as deemed appropriate. 5. Thoracic aortic dilatation/aneurysm She has been evaluated for this noninvasively. She continues medical management and follow-up. 6. Hyperlipidemia She will continue medical management. 7. Hypertension Her blood pressure will be followed as her medications are adjusted. 8. Hypokalemia She will need continued electrolyte supplementation to assist with her cardiovascular issues. 9. Diarrhea She has had repetitive episodes of diarrhea. This will need to be addressed by internal medicine for potential etiologies. This may also be contributing to her hypokalemia and potentially her underlying atrial dysrhythmia. This note was generated using a voice recognition system and there may be incorrect words, spelling or punctuation that were not noted when reviewing the office note prior to saving.
[2019-03-02] MEDS: Furosemide 20 MG Tablet PO (16:54)
[2019-03-02] MEDS: 0.9% Saline Lock 10 ML Syringe IV (16:55)
[2019-03-02] MEDS: Acetaminophen 325 MG Tablet 650 MG PO (20:09)
[2019-03-03] VITALS (7 sets, daily range): BP systolic 110–130; BP diastolic 59–67; PULSE 77–111; RESP 14–16; TEMP 36.7–36.8; O2SAT 97–99
[2019-03-03] MEDS: 0.9% Saline Lock 10 ML Syringe IV (03:28)
[2019-03-03 06:20] LABS: Anion Gap 7 (5-15); BUN 21 mg/dL (7-18); BUN/Creat Ratio 22.6 RATIO (10-20); Calcium,Total 9.1 mg/dL (8.5-10.1); Chloride 105 mmol/L (98-107); Creatinine, Serum 0.93 mg/dL (0.55-1.02); EST Glomerular Filtration Rate 61 mL/min (>60); Est Glom Filt Rate - Afr Amer 74 mL/min (>60); Estimated Creatinine Clearance 34.69 ml/min; Glucose 99 mg/dL (74-106); Potassium 3.8 mmol/L (3.5-5.1); Sodium Level 141 mmol/L (136-145)
[2019-03-03] MEDS: Aspirin E.C. 81 MG Tablet PO (07:36)
[2019-03-03] MEDS: Omega-3 Acid Ethyl Esters 1 GM Capsule PO (09:20)
[2019-03-03] MEDS: Ramipril 10 MG Capsule PO (09:20)
[2019-03-03] MEDS: Enoxaparin 40 MG/0.4 ML Syringe SC (09:20)
[2019-03-03] MEDS: Isosorbide Mononitrate 60 MG Tablet PO (09:20)
[2019-03-03] MEDS: Calcium Carbonate 500 MG Tablet PO (09:20)
--- NOTE | 2019-03-03 09:20 | PN.CARD_ITS ---
Subjectve: The patient is awake and alert. She has been up and ambulating. She denies any ongoing acute complaints from a cardiovascular standpoint at this time. She believes her heart rate, by her sensation, has been under better control since yesterday evening. Objective: Vital Signs Temp Pulse Resp BP Pulse Ox 98.2 F 94 16 130/59 H 97 03/03/19 09:06 03/03/19 09:06 03/03/19 09:06 03/03/19 09:06 03/03/19 09:06 Oxygen Delivery Method Room Air Weight: 107 lb 9.369 oz Body Mass Index (BMI) 19.6 Intake and Output for Last 24 Hours 03/01/19 03/02/19 03/03/19 23:59 23:59 23:59 Intake Total 811.0 / 811.0 1328.75 / 1328.75 220 / 220 Output Total 1999 1225 / 1225 Balance -1189.0 / -1189.0 103.75 / 103.75 220 / 220 General: Awake, Alert, Oriented x 3, Cooperative, No Acute Distress HEENT: Atraumatic, Normocephalic, PERRL, EOMI, Sclera Non Icteric Oral: Moist Mucosa Neck: Supple, Good ROM, No JVD Lungs: Clear to auscultation Cardiovascular: Irregular Rhythm, Normal S1, Normal S2 Abdomen: Bowel Sounds Present, Soft, Non Tender Extremities: No edema Neurological: No Focal Motor or Sensory Deficit Psych/Mental Status: Appropriate 03/02/19 13:09: Potassium 3.6 03/03/19 05:40: Sodium 141, Potassium 3.8, Chloride 105, Carbon Dioxide 29.0, Anion Gap 7, BUN 21 H, Creatinine 0.93, Est GFR (MDRD) Af Amer 74, Est GFR (MDRD) Non-Af 61, BUN/Creatinine Ratio 22.6 H, Glucose 99, Calcium 9.1 Rhythm: Atrial fibrillation; occasional PVC Medical Necessity - Tobacco Use Smoking Status: Never smoker Assessment/Plan 1. Atrial fibrillation with RVR At the present time the patient does have a history of atrial fibrillation. Her atrial fibrillation may be exacerbated by concerns of her underlying diarrhea and hypokalemia. She is continuing medical therapy. This has included increasing her beta- danica dose to twice daily. She has had issues with anticoagulants in the past with respect to epistaxis. She has not wanted to go back on anticoagulant therapy. 2. CAD status post PCI status post CABG The patient has a history of extensive underlying coronary artery disease and revascularization therapy. Her most recent noninvasive and invasive studies are as noted. At the moment she appears without any acute symptoms and her troponin I levels have been negative. Thus she will continue medical therapy with adjustment as needed. 3. Valvular heart disease She will continue to be followed by history, exam, and echocardiogram as deemed appropriate. 4. Chronic diastolic mediated CHF At the moment she does not appear to be volume overloaded. She will continue medical therapy with adjustment of her doses as deemed appropriate. 5. Thoracic aortic dilatation/aneurysm She has been evaluated for this noninvasively. She continues medical management and follow-up. 6. Hyperlipidemia She will continue medical management. 7. Hypertension Her blood pressure will be followed as her medications are adjusted. 8. Hypokalemia She will need continued electrolyte supplementation to assist with her cardiovascular issues. 9. Diarrhea She has had repetitive episodes of diarrhea. This will need to be addressed by internal medicine for potential etiologies. This may also be contributing to her hypokalemia and potentially her underlying atrial dysrhythmia. This note was generated using a voice recognition system and there may be incorrect words, spelling or punctuation that were not noted when reviewing the office note prior to saving.
[2019-03-03] MEDS: Furosemide 20 MG Tablet PO (09:21)
[2019-03-03] MEDS: amLODIPine 5 MG Tablet PO (09:21)
[2019-03-03] MEDS: Metoprolol(XL)Succ 50 MG Tablet PO (09:21)
--- NOTE | 2019-03-03 11:03 | DCINST_ITS ---
- Discharge Diagnoses Current Active Problems: Current Active and Chronic Problems (Last Reviewed 03/01/19 @ 00:05 by Kin Martinez DO) Paroxysmal atrial fibrillation with RVR (Acute) Atrial fibrillation with RVR (Acute) Hypokalemia (Acute) CAD in [place] artery (Chronic) Diarrhea (Acute) You will use the following diet at home:: Cardiac Your food should be the consistency of: Regular Your liquids should be the consistency of: Regular/Thin Discharge Activity: Return to Normal Activity Weight Bearing Status: Weight bearing as tolerated Call your doctor if you observe: Shortness of breath, Dizziness, Swelling in the ankles, Chest pain, Increased palpitations (irregular heartbeat) Instructions: Atrial Fibrillation, Taking Medication to Control Heart Failure, What Is Heart Failure? Allergies/Adverse Reactions: Allergies alendronate sodium [From Fosamax] Allergy (Verified 02/28/19 21:57) Unknown atorvastatin calcium [From Lipitor] Allergy (Verified 02/28/19 21:57) Unknown colestipol HCl [From Colestid] Allergy (Verified 02/28/19 21:57) Unknown cortisone acetate [From Cortone] Allergy (Verified 02/28/19 21:57) Unknown ezetimibe [From Zetia] Allergy (Verified 02/28/19 21:57) Unknown gabapentin Allergy (Verified 02/28/19 21:57) Unknown goserelin acetate [From Zoladex] Allergy (Verified 02/28/19 21:57) Unknown nabumetone Allergy (Verified 02/28/19 21:57) Other paroxetine HCl [From Paxil] Allergy (Verified 02/28/19 21:57) Unknown rosuvastatin calcium [From Crestor] Allergy (Verified 02/28/19 21:57) Unknown sertraline HCl [From Zoloft] Allergy (Verified 02/28/19 21:57) Unknown venlafaxine HCl [From Effexor] Allergy (Verified 02/28/19 21:57) Unknown hydrocodone Adverse Reaction (Intermediate, Verified 02/28/19 21:57) Unknown acetaminophen [From Vicodin] Adverse Reaction (Verified 02/28/19 21:57) KEEPS ME AWAKE carvedilol Adverse Reaction (Verified 02/28/19 21:57) Unknown hydrocodone bitartrate [From Vicodin] Adverse Reaction (Verified 02/28/19 21:57) KEEPS ME AWAKE venlafaxine Adverse Reaction (Severe, Uncoded 02/28/19 21:57) Unknown Medications to take at Discharge Calcium Carbonate [Calcium] 600 mg PO DAILY 03/28/15 [place]-3 Fatty Acids [Fish Oil] 1,000 mg PO DAILY 03/28/15 Nitroglycerin (INPATIENT USE) [Nitrostat] 0.4 mg SUBLINGUAL Q5M PRN #6 tab 05/23/17 esomeprazole magnesium 20 mg capsule,delayed release 20 mg PO QDAY PRN 09/05/17 aspirin 81 mg tablet,delayed release 81 mg PO Q OTHER DAY tab 04/13/18 amlodipine 5 mg tablet 5 mg PO QDAY #90 tab 09/30/18 latanoprost 0.005 % eye drops 1 drop OPHTHALMIC QHS #8 ml 09/30/18 ramipril 10 mg capsule 10 mg PO BID #180 cap 09/30/18 isosorbide mononitrate ER 60 mg tablet,extended release 24 hr 60 mg PO QAM #90 tab 01/04/19 Furosemide [Lasix] 20 mg PO BID@1000,1800 #60 tab 03/03/19 Metoprolol(XL)Succ [Toprol Xl (Beta Jt)] 50 mg PO BID #60 tab 03/03/19 Potassium Chloride [K-Dur] 20 meq PO BIDCM #60 tab 03/03/19 The following prescriptions were given: Potassium Chloride [K-Dur] 20 meq PO BIDCM #60 tab Transmission Status: Pending to [facility]30 Furosemide [Lasix] 20 mg PO BID@1000,1800 #60 tab Transmission Status: Pending to [facility] #30 Metoprolol(XL)Succ [Toprol Xl (Beta Jt)] 50 mg PO BID #60 tab Transmission Status: Pending to [facility] Primary Care Physician: Rachel Bernabe DO [Primary Care Provider] - Please follow up with your Primary Care Physician in: one week Test Results: Test results from this visit will be discussed in further detail at your follow- up appointment, if applicable. Please Follow Up With: Shawn Wilkinson MD When: 2-3 weeks Please Follow Up With: Neftaly Kaye MD When: 3-4 weeks for chronic diarrhea; call office for appointment Proposed Discharge Date: 03/03/19
--- NOTE | 2019-03-03 11:05 | DS.PCM_ITS ---
Discharge Date and Diagnosis Date of Admission: 02/28/19 Date of Discharge: 03/03/19 - Primary Discharge Diagnosis Active and Suspected Problems (Last Reviewed 03/01/19 @ 00:05 by Kin Martinez DO) Paroxysmal atrial fibrillation with RVR (Acute) Atrial fibrillation with RVR (Acute) Hypokalemia (Acute) Diarrhea (Acute) - Secondary Discharge Diagnosis Chronic Problems (Last Reviewed 03/01/19 @ 00:05 by Kin Martinez DO) CAD in [place] artery (Chronic) Left carotid bruit (Chronic) Valvular heart disease (Chronic) Carotid artery disease (Chronic) Thoracic aortic aneurysm without rupture (Chronic) Atherosclerotic heart disease of [place] coronary artery without angina pectoris (Chronic) PRO to LAD, SVG to distal LCFX, SVG to RCA 2009; PTCA/Stent to SVG of [facility] 11/13/11 Aortocoronary bypass status (Chronic ~2009) PRO to LAd, SVg to distal LCFX, SVG to RCA 2009 Chronic diastolic (congestive) heart failure (Chronic) Paroxysmal atrial fibrillation (Chronic) Presence of stent in coronary artery (Chronic ~11/13/11) PTCA/Stent to SVG of [facility] 11/13/11 Hypertension (Chronic) Hyperlipidemia (Chronic) Aortic insufficiency (Chronic) Mild Mitral valve regurgitation (Chronic) Aortic valve disorder (Chronic) Hospital Course and Treatment Imaging Results: Diagnostic Data Chest X-Ray 02/28/19 22:09 IMPRESSION: Mild CHF. at 2254 Reported and signed by: Je Lynne MD Electronically Signed: Je Lynne MD at 22:53 EST Tel , Service support , cardiology- Dr Wilkinson Operations: None Procedures: 2-D Echocardiogram Summary of Care Provided: The patient is a 83 year old F with past medical history as listed. She was admitted through the ED on 02/28/2019 with a complaint of palpitations which started on the day of admission with a steady chest pain. She took nitroglycerin but did not help with her symptoms. She was admitted to the ED and was found to be in A. fib with RVR with heart rate in 130s. She was given a bolus of IV Cardizem 10 mg and heart rate became controlled. Patient states she ahd been compliant with her medication. She was found to be hypokalemic with potassium of 2.8 and this was replaced. She was admitted and managed for A. fib with RVR. Chest x-ray done showed evidence of mild CHF with BNP was checked which was over 600. Patient was therefore diuresed with IV Lasix. Hypokalemia improved and gradually resolved with aggressive replacement. Patient's heart rate became controlled but subsequently went into A. fib with RVR again. Cardiology was therefore consulted at this point. Of note, patient also complained that she has been having chronic diarrhea for the past few months. She denied being on any antibiotics recently. It must be stated that patient had not been on oral anticoagulation because of a history of epistasis in the past and prefer not to be on anticoagulation. She was therefore on aspirin. 2D echo done showed EF of 65% and unable to assess diastolic dysfunction due to arrhythmia. Neurology evaluated patient and her metoprolol was increased to 50 mg twice daily. She was also put on p.o. Lasix 20 mg twice daily and was discharged with a prescription for p.o. potassium. She was discharged home on 03/03/2019 and is follow-up with her primary care doctor and cardiology. Patient was also referred to gastroenterology on account of her chronic diarrhea as this could be contributing to the recurrent hypokalemia which was causing her to go into A. fib with RVR. Patient seen and examined prior to discharge. She felt well and had no complaints. Review of systems otherwise negative. Labs and vitals reviewed. Home medications reviewed and reconciled. o/e: Vital Signs Height 5 ft 2 in Weight: 107 lb 9.369 oz Weight in Pounds 107.6 lbs Pulse Ox 98 Temperature 98.2 F Pulse Rate [Standing] 124 Pulse Rate [Sitting] 115 Pulse Rate [Lying] 106 Pulse Rate 99 Respiratory Rate 14 Blood Pressure [Standing] 124/67 Blood Pressure [Sitting] 124/78 Blood Pressure [Lying] 126/68 Blood Pressure [2nd BP] 139/86 Blood Pressure 113/67 Blood Pressure Position [2nd Semi-Fowlers BP] Blood Pressure Position Semi-Fowlers []General: Alert, Oriented x3, Cooperative, No apparent distress HEENT: Atraumatic, PERRLA, EOMI, Normocephalic Oral: Moist Mucosa Neck: Supple, No JVD, Negative Carotid Bruits Lungs: Clear to auscultation, Normal air movement, No rhonchi, No wheeze, No rales Cardiovascular: Normal S1, Normal S2, No murmurs, Irregular Rate, rate controlled Abdomen: Bowel Sounds Present, Soft, Non Tender, Non-Distended, No Hepato- splenomegaly Extremities: No clubbing, No cyanosis, No edema, Capillary Refill Less than 3 Seconds Skin: No rashes, No breakdown Musculoskeletal: No Tenderness to Palpation of Joints or Extremities Lymphatic: No Cervical, Supraclavicular, or Inguinal Adenopathy Neurological: Cranial nerves II-XII grossly intact, Neuro grossly intact, Motor Exam 5/5 strength throughout Psych/Mental Status: Normal Affect, Appropriate, Alert and oriented to time, place, person, mood and affect Plan as above. - Physical Exam Vitals/I&O's: Vital Signs Temp Pulse Resp BP Pulse Ox 98.2 F 94 16 130/59 H 97 03/03/19 09:06 03/03/19 09:21 03/03/19 09:06 03/03/19 09:06 03/03/19 09:06 Oxygen Delivery Method Room Air Weight: 107 lb 9.369 oz Body Mass Index (BMI) 19.6 Intake and Output for Last 24 Hours 03/01/19 03/02/19 03/03/19 23:59 23:59 23:59 Intake Total 811.0 / 811.0 1328.75 / 1328.75 220 / 220 Output Total 1999 1225 / 1225 Balance -1189.0 / -1189.0 103.75 / 103.75 220 / 220 Laboratory Results 03/02/19 13:09: Potassium 3.6 03/03/19 05:40: Sodium 141, Potassium 3.8, Chloride 105, Carbon Dioxide 29.0, Anion Gap 7, BUN 21 H, Creatinine 0.93, Estim Creat Clear Calc 34.69, Est GFR (MDRD) Af Amer 74, Est GFR (MDRD) Non-Af 61, BUN/Creatinine Ratio 22.6 H, Glucose 99, Calcium 9.1 Current Medications Acetaminophen (Tylenol) 650 mg PO Q6H PRN PRN PRN Reason: Pain Score 1-10/Temp > 100.7 F Last Admin: 03/02/19 20:09 Dose: 325 mg Documented by: Amlodipine Besylate (Norvasc) 5 mg PO DAILY COUNTS INCLUDE 234 BEDS AT THE [facility] Last Admin: 03/03/19 09:21 Dose: 5 mg Documented by: Aspirin (Ecotrin) 81 mg PO QODAY@0800 COUNTS INCLUDE 234 BEDS AT THE [facility] Last Admin: 03/03/19 07:36 Dose: 81 mg Documented by: Calcium Carbonate (Tums) 500 mg PO DAILY COUNTS INCLUDE 234 BEDS AT THE [facility] Last Admin: 03/03/19 09:20 Dose: 500 mg Documented by: Dextrose (D50w Syringe) 0 gm IV X1 PRN; Protocol PRN Reason: Hypoglycemia Enoxaparin Sodium (Lovenox) 40 mg SC DAILY COUNTS INCLUDE 234 BEDS AT THE [facility] Last Admin: 03/03/19 09:20 Dose: 40 mg Documented by: Furosemide (Lasix) 20 mg PO BID@1000,1800 COUNTS INCLUDE 234 BEDS AT THE [facility] Last Admin: 03/03/19 09:21 Dose: 20 mg Documented by: Glucagon () 1 mg IM .X1 PRN PRN Reason: Hypoglycemia Sodium Chloride () 250 mls @ 15 mls/hr IV .[id number] PRN PRN Reason: Saline Flush Last Infusion: 03/02/19 13:04 Dose: 0 mls/hr Documented by: Isosorbide Mononitrate (Imdur) 60 mg PO QAM COUNTS INCLUDE 234 BEDS AT THE [facility] Last Admin: 03/03/19 09:20 Dose: 60 mg Documented by: Latanoprost (Xalatan Opthalmic) 1 drop OPHTHALMIC DAILY COUNTS INCLUDE 234 BEDS AT THE [facility] Last Admin: 03/03/19 09:22 Dose: Not Given Documented by: Melatonin (Melatonin) 3 mg PO QHS PRN PRN PRN Reason: INSOMNIA Metoprolol Succinate (Toprol Xl (Beta Jt)) 50 mg PO BID COUNTS INCLUDE 234 BEDS AT THE [facility] Last Admin: 03/03/19 09:21 Dose: 50 mg Documented by: Nitroglycerin (Nitrostat) 0.4 mg SUBLINGUAL Q5M PRN PRN Reason: Chest Pain Ojtsg-1-Uuie Ethyl Esters (Lovaza) 1 gm PO DAILY COUNTS INCLUDE 234 BEDS AT THE [facility] Last Admin: 03/03/19 09:20 Dose: 1 gm Documented by: Ondansetron HCl (Zofran) 4 mg IV Q8H PRN PRN PRN Reason: NAUSEA/VOMITING Pantoprazole Sodium (Protonix) 20 mg PO DAILY PRN PRN PRN Reason: GERD Potassium Chloride (K-Dur) 20 meq PO BIDCM COUNTS INCLUDE 234 BEDS AT THE [facility] Last Admin: 03/03/19 07:36 Dose: 20 meq Documented by: Ramipril (Altace) 10 mg PO BID COUNTS INCLUDE 234 BEDS AT THE [facility] Last Admin: 03/03/19 09:20 Dose: 10 mg Documented by: Sodium Chloride () 10 - 40 ml IV UD PRN PRN Reason: SALINE FLUSH Last Admin: 03/03/19 03:28 Dose: 10 ml Documented by: Discharge Diet: Low fat/ Low Cholesterol Discharge Activity: Return to Normal Activity Weight Bearing Status: Weight bearing as tolerated Call your doctor if you observe: Shortness of breath, Dizziness, Swelling in the ankles, Chest pain, Increased palpitations (irregular heartbeat) Home Medications: Medications to take at Discharge Calcium Carbonate [Calcium] 600 mg PO DAILY 03/28/15 [place]-3 Fatty Acids [Fish Oil] 1,000 mg PO DAILY 03/28/15 Nitroglycerin (INPATIENT USE) [Nitrostat] 0.4 mg SUBLINGUAL Q5M PRN #6 tab 05/23/17 esomeprazole magnesium 20 mg capsule,delayed release 20 mg PO QDAY PRN 09/05/17 aspirin 81 mg tablet,delayed release 81 mg PO Q OTHER DAY tab 04/13/18 amlodipine 5 mg tablet 5 mg PO QDAY #90 tab 09/30/18 latanoprost 0.005 % eye drops 1 drop OPHTHALMIC QHS #8 ml 09/30/18 ramipril 10 mg capsule 10 mg PO BID #180 cap 09/30/18 isosorbide mononitrate ER 60 mg tablet,extended release 24 hr 60 mg PO QAM #90 tab 01/04/19 Furosemide [Lasix] 20 mg PO BID@1000,1800 #60 tab 03/03/19 Metoprolol(XL)Succ [Toprol Xl (Beta Jt)] 50 mg PO BID #60 tab 03/03/19 Potassium Chloride [K-Dur] 20 meq PO BIDCM #60 tab 03/03/19 Following Prescrptions Were Given to Patient: Potassium Chloride [K-Dur] 20 meq PO BIDCM #60 tab Transmission Status: Received by [facility] #30 Furosemide [Lasix] 20 mg PO BID@1000,1800 #60 tab Transmission Status: Received by [facility] #30 Metoprolol(XL)Succ [Toprol Xl (Beta Jt)] 50 mg PO BID #60 tab Transmission Status: Received by [facility] #30 Primary Care Physician: Rachel Bernabe DO [Primary Care Provider] - Please follow up with your Primary Care Physician in: one week Please Follow Up With: Shawn Wilkinson MD When: 2-3 weeks Please Follow Up With: Neftaly Kaye MD When: 3-4 weeks for chronic diarrhea; call office for appointment Patient Instructions: Taking Medication to Control Heart Failure, What Is Heart Failure?, Atrial Fibrillation Disposition: Home Minutes spent on discharge:: 35 Patient Condition:: Stable Medical Necessity - Tobacco Use Smoking Status: Never smoker Meaningful Use Info Meaningful Use Diagnoses (Choose all that apply): CHF - CHF PEACE/ARB ordered at discharge?: Yes Documented LVEF (%): 65 Code Visit OBSV E&M: 34024 Observation care discharge
--- NOTE | 2019-03-03 12:17 | PHA.DC.MC ---
Pharmacy Service has performed discharge medication reconciliation and counseling for this patient. 1. FUROSEMIDE 20MG PO BID 2. METOPROLOL SUCCINATE 50MG PO BID 3. POTASSIUM CHLORIDE 20MEQ PO BID The patient's discharge medication list was reviewed for discrepancies and discrepancies were resolved. Home Medications Calcium Carbonate [Calcium] 600 mg PO DAILY 03/28/15 [place]-3 Fatty Acids [Fish Oil] 1,000 mg PO DAILY 03/28/15 Nitroglycerin (INPATIENT USE) [Nitrostat] 0.4 mg SUBLINGUAL Q5M PRN #6 tab 05/23/17 esomeprazole magnesium 20 mg capsule,delayed release 20 mg PO QDAY PRN 09/05/17 aspirin 81 mg tablet,delayed release 81 mg PO Q OTHER DAY tab 04/13/18 amlodipine 5 mg tablet 5 mg PO QDAY #90 tab 09/30/18 latanoprost 0.005 % eye drops 1 drop OPHTHALMIC QHS #8 ml 09/30/18 ramipril 10 mg capsule 10 mg PO BID #180 cap 09/30/18 isosorbide mononitrate ER 60 mg tablet,extended release 24 hr 60 mg PO QAM #90 tab 01/04/19 Furosemide [Lasix] 20 mg PO BID@1000,1800 #60 tab 03/03/19 Metoprolol(XL)Succ [Toprol Xl (Beta Jt)] 50 mg PO BID #60 tab 03/03/19 Potassium Chloride [K-Dur] 20 meq PO BIDCM #60 tab 03/03/19 The patient was counseled on the following discharge medications and changes in medications for homegoing were reviewed. The Reason for Use, instructions for use, and potential side effects were reviewed for all new medications. The patient's questions regarding all of their medications were answered. The patient was able to verbally demonstrate an understanding of their discharge medications.
== END 2019-03-03 11:04 | disposition home or self-care (01) ==
LOC: ED 23:05 → PCU 03-01 00:15
PROVIDERS: Internal Medicine Cardiovascular Disease; Emergency Provider Emergency Medicine; Family Provider Family Medicine; PCP Family Medicine; Visit Provider Student in an Organized Health Care Education/Training Program
DX: I48.0 Paroxysmal atrial fibrillation (principal); E87.6 Hypokalemia; I25.10 Atherosclerotic heart disease of native coronary artery without angina pectoris; I11.0 Hypertensive heart disease with heart failure; I50.33 Acute on chronic diastolic (congestive) heart failure; I48.20 Chronic atrial fibrillation, unspecified; E78.2 Mixed hyperlipidemia; K21.9 Gastro-esophageal reflux disease without esophagitis; I73.9 Peripheral vascular disease, unspecified; I08.3 Combined rheumatic disorders of mitral, aortic and tricuspid valves; Z79.899 Other long term (current) drug therapy; Z79.82 Long term (current) use of aspirin; Z95.1 Presence of aortocoronary bypass graft
CPT/HCPCS: 36415; 71045; 80048; 83735; 83880; 84132; 84484; 85025; 93005; 93306; 96361; 96372; 96374; 96375; 96376; 99218; 99285; J7050; A4216; G0378; J1940

== ENCOUNTER → 2019-03-09 11:24 | Outpatient (CLI) | payer MEDICARE, SELFPAY ==
[2019-03-03 13:30] VITALS: BMI 20.7
[2019-03-09 16:03] LABS: Anion Gap 8 (5-15); BUN 29 mg/dL (7-18); BUN/Creat Ratio 26.1 RATIO (10-20); Calcium,Total 9.4 mg/dL (8.5-10.1); Chloride 100 mmol/L (98-107); Creatinine, Serum 1.11 mg/dL (0.55-1.02); EST Glomerular Filtration Rate 50 mL/min (>60); Est Glom Filt Rate - Afr Amer 60 mL/min (>60); Glucose 96 mg/dL (74-106); Potassium 4.5 mmol/L (3.5-5.1); Sodium Level 136 mmol/L (136-145)
== END ==
PROVIDERS: Family Provider Family Medicine; PCP Family Medicine; Visit Provider Family Medicine
DX: I48.0 Paroxysmal atrial fibrillation (principal)
CPT/HCPCS: 36415; 80048

== ENCOUNTER → 2019-03-10 08:57 | Outpatient (CLI) | payer MEDICARE, SELFPAY ==
[2019-03-03 13:30] VITALS: BMI 20.7
== END ==
PROVIDERS: Family Provider Family Medicine; PCP Family Medicine; Visit Provider Family Medicine
DX: R19.7 Diarrhea, unspecified (principal)
CPT/HCPCS: 83630; 87177; 87209; 87493; 87506

== ENCOUNTER → 2019-05-10 07:43 | Outpatient (CLI) | payer MEDICARE, SELFPAY ==
[2019-04-26 09:29] VITALS: BMI 20.2
[2019-05-10 09:09] LABS: Absolute Lymphocyte Count 2.45 X10^3/uL (0.83-4.51); Absolute Neutrophil Count 3.1 X10^3/uL (2.0-7.7); Basophil# 0.04 X10^3/uL; Basophil% 0.6 % (0-1); Eosinophil# 0.19 X10^3/uL; Hematocrit 38.4 % (37-47); Hemoglobin 12.7 g/dL (12.0-15.0); Lymphocyte # 2.45 X10^3/ul (4.0); Lymphocyte % 38.8 % (19-41); Mean Corp Hgb Conc 33.1 g/dL (32-36); Mean Corpuscular Volume 93.7 fL (81-99); Mean Platelet Vol. 9.5 fl (6.2-12.0); Monocyte# 0.46 X10^3/uL; Monocyte% 7.3 % (0-10); NRBC Flagged by Analyzer 0.3 % (0-5); Neutrophil # 3.14 X10^3/uL (2.7-7.7); Neutrophil % 49.7 % (47-70); Platelet Count 226 K/mm3 (150-450); RBC Distribution Width CV 15.9 % (11.6-14.6); RBC Distribution Width SD 53.8 fl (35.1-43.9); White Blood Count 6.3 K/mm3 (4.4-11.0)
[2019-05-10 09:52] LABS: ALB/GLOB Ratio 1.1 RATIO (0.9-2.4); AST(SGOT) 28 U/L (15-37); Alanine Aminotransfer ALT/SGPT 26 U/L (13-56); Albumin, Serum 3.7 g/dL (3.2-5.0); Alkaline Phosphatase 57 U/L (45-117); Anion Gap 5 (5-15); BUN 23 mg/dL (7-18); BUN/Creat Ratio 26.3 RATIO (10-20); Bilirubin, Direct 0.25 mg/dL (0.00-0.30); Calcium,Total 9.3 mg/dL (8.5-10.1); Chloride 105 mmol/L (98-107); Cholesterol 183 mg/dL (200); Creatinine, Serum 0.87 mg/dL (0.55-1.02); EST Glomerular Filtration Rate 66 mL/min (>60); Est Glom Filt Rate - Afr Amer 79 mL/min (>60); Globulin 3.5 g/dL (2.2-4.2); Glucose 94 mg/dL (74-106); High Density Lipoprotein 74 mg/dL; Potassium 3.9 mmol/L (3.5-5.1); Protein, Total 7.2 g/dL (6.4-8.2); Sodium Level 138 mmol/L (136-145); Triglycerides 45 mg/dL; Very Low Density Lipoprotein 9 mg/dL (5-40)
== END ==
PROVIDERS: Internal Medicine Cardiovascular Disease; PCP Family Medicine; Referring Provider Family Medicine; Visit Provider Family Medicine
DX: I48.91 Unspecified atrial fibrillation (principal); I43 Cardiomyopathy in diseases classified elsewhere; E87.6 Hypokalemia; E78.5 Hyperlipidemia, unspecified; I25.10 Atherosclerotic heart disease of native coronary artery without angina pectoris; Z51.81 Encounter for therapeutic drug level monitoring; Z79.899 Other long term (current) drug therapy
CPT/HCPCS: 36415; 80053; 80061; 80162; 82248; 85025

== ENCOUNTER 2019-06-12 03:37 | Observation (INO) | payer MEDICARE, SELFPAY ==
[2019-04-26 09:29] VITALS: BMI 20.2
[2019-06-12] VITALS (50 sets, daily range): BP systolic 107–164; BP diastolic 53–104; PULSE 57–113; RESP 12–22; TEMP 36.1–36.7; O2SAT 94–100; BMI 24.3; BMI 20.1
--- NOTE | 2019-06-12 03:48 | EKG12_ITS ---
Test Reason : AM EKG Blood Pressure : / mmHG Vent. Rate : 076 BPM Atrial Rate : 340 BPM P-R Int : 000 ms QRS Dur : 070 ms QT Int : 392 ms P-R-T Axes : 000 012 -50 degrees QTc Int : 441 ms Atrial fibrillation Nonspecific ST and T wave abnormality Abnormal ECG Confirmed by ABIOLA BOYCE, SAFIA ([id number]), editor trade journal REEMA MORATAYA ([id number]) on 06/16/2019 1:59:03 PM Referred By: RADHA Confirmed By:SAFIA CULVER MD
--- NOTE | 2019-06-12 03:50 | RAD_ITS ---
STUDY: X-RAY CHEST REASON FOR EXAM: Female, 83 years old. Chest pain. TECHNIQUE: AP portable upright COMPARISON: 02/28/2019 FINDINGS: No evidence of pneumonia, pulmonary edema, pneumothorax or pleural effusion. Cardiac silhouette, hilar and mediastinal contours with no acute findings. Mild cardiomegaly. Sternotomy wires and mediastinal surgical clips. Atherosclerosis of the thoracic aorta. Degenerative osseous changes with no acute osseous abnormality. Right shoulder reverse arthroplasty. RAD/Chest 1 View (Portable) IMPRESSION: No acute findings. Electronically Signed: Wei Scott, at 4:07 EST Tel , Service support ,
[2019-06-12 03:59] LABS: Absolute Lymphocyte Count 1.78 X10^3/uL (0.83-4.51); Absolute Neutrophil Count 3.6 X10^3/uL (2.0-7.7); Basophil# 0.04 X10^3/uL; Basophil% 0.7 % (0-1); Eosinophil# 0.05 X10^3/uL; Eosinophils% 0.8 % (0-5); Hematocrit 36.2 % (37-47); Hemoglobin 12.1 g/dL (12.0-15.0); Lymphocyte # 1.78 X10^3/ul (4.0); Lymphocyte % 29.4 % (19-41); Mean Corp Hgb Conc 33.4 g/dL (32-36); Mean Corpuscular Hgb 31.1 pg (27.0-32.0); Mean Corpuscular Volume 93.1 fL (81-99); Mean Platelet Vol. 9.4 fl (6.2-12.0); Monocyte# 0.59 X10^3/uL; Monocyte% 9.7 % (0-10); NRBC Flagged by Analyzer 0.3 % (0-5); Neutrophil # 3.59 X10^3/uL (2.7-7.7); Neutrophil % 59.2 % (47-70); Platelet Count 245 K/mm3 (150-450); RBC Distribution Width CV 15.9 % (11.6-14.6); RBC Distribution Width SD 54.2 fl (35.1-43.9); Red Blood Count 3.89 M/mm3 (4.2-5.4); White Blood Count 6.1 K/mm3 (4.4-11.0)
--- NOTE | 2019-06-12 04:01 | ED.VIS.CHEST ---
History of Present Illness Chief Complaint: Chest Pain Informant: Patient Narrative: Patient presenting for evaluation secondary to chest pain. Patient has an underlying history of coronary artery disease with bypass graft, and chronic A. fib. Patient states that this evening she started to notice that she was having some cramping and pain in her left leg. She reports that that was intermittent, seem to be resolving. Patient then states that she was woken up by having some chest pain. She describes this as a tightness and heaviness so EMS was contacted. She denies that there is any sort of exacerbating factors, but it was relieved with nitroglycerin. She denies shortness of breath lightheadedness or sweatiness but does state that she had some feelings of palpitations. Patient denies any recent infectious signs or symptoms such as fever cough nausea vomiting or diarrhea. Patient did have an echocardiogram back in February. Review of systems otherwise negative. Past Medical History - Allergies and Home Meds Allergies/Adverse Reactions: Allergies alendronate sodium [From Fosamax] Allergy (Verified 06/12/19 04:00) Unknown atorvastatin calcium [From Lipitor] Allergy (Verified 06/12/19 04:00) Unknown colestipol HCl [From Colestid] Allergy (Verified 06/12/19 04:00) Unknown cortisone acetate [From Cortone] Allergy (Verified 06/12/19 04:00) Unknown ezetimibe [From Zetia] Allergy (Verified 06/12/19 04:00) Unknown gabapentin Allergy (Verified 06/12/19 04:00) Unknown goserelin acetate [From Zoladex] Allergy (Verified 06/12/19 04:00) Unknown nabumetone Allergy (Verified 06/12/19 04:00) Other paroxetine HCl [From Paxil] Allergy (Verified 06/12/19 04:00) Unknown rosuvastatin calcium [From Crestor] Allergy (Verified 06/12/19 04:00) Unknown sertraline HCl [From Zoloft] Allergy (Verified 06/12/19 04:00) Unknown venlafaxine HCl [From Effexor] Allergy (Verified 06/12/19 04:00) Unknown hydrocodone Adverse Reaction (Intermediate, Verified 06/12/19 04:00) Unknown acetaminophen [From Vicodin] Adverse Reaction (Verified 06/12/19 04:00) KEEPS ME AWAKE carvedilol Adverse Reaction (Verified 06/12/19 04:00) Unknown hydrocodone bitartrate [From Vicodin] Adverse Reaction (Verified 06/12/19 04:00) KEEPS ME AWAKE venlafaxine Adverse Reaction (Severe, Uncoded 06/12/19 04:00) Unknown Past Medical History: - - Coronary artery disease, A. fib Surgical History: angioplasty, coronary bypass surgery - Coronary artery bypass grafting was done in 2011. She also had a coronary stent the following year., total knee arthroplasty - the, - Smoking Status: Never smoker - Family History Maternal Family History: Family History (Last Reviewed 04/26/19 @ 09:34 by Chika Toth) Brother CAD (coronary artery disease) Diabetes Myocardial infarction Father CAD (coronary artery disease) Other Family history of premature coronary heart disease Family History: Reports: Heart Disease Paternal Family History: Family History (Last Reviewed 04/26/19 @ 09:34 by Chika Toth) Brother CAD (coronary artery disease) Diabetes Myocardial infarction Father CAD (coronary artery disease) Other Family history of premature coronary heart disease Family History: Reports: Heart Disease Review of Systems All systems negative except as indicated General: Denies: Chills, Fever, Sweats Eyes: Denies: Visual changes - bilaterally, Diplopia ENT: Denies: Rhinorrhea, Sore throat Cardiovascular: Reports: Chest pain Respiratory: Denies: Dyspnea, Cough, Dyspnea on exertion Gastrointestinal: Denies: Abdominal pain, Nausea, Vomiting, Diarrhea, Melena, Hematochezia Genitourinary: Denies: Dysuria, Hematuria, Frequency Musculoskeletal: Reports: Extremity Pain Skin: Denies: Rash, Wounds Neurological: Denies: Headache, Weakness, Numbness Physical Exam Vital Signs/Narrative: Vital Signs Temp Pulse Resp BP Pulse Ox 06/12/19 03:39 97.5 F L 106 H 12 160/92 H 98 Inital Vital Signs reviewed: Yes General: - - Elderly female no acute distress Head: Normocephalic, Atraumatic Eyes: Perrl, EOMI ENT: Moist mucous membranes Neck: Supple, Nontender, - - JVD is noted Cardiovascular: Regular rate, Irregular, - - 2 out of 6 systolic. Radial pulses are 2+ and symmetric. DP pulses are asymmetric with a 2+ pulse on the left which is the leg the patient was complaining of cramps and and a 1+ pulse on the right. Faint PT pulses bilaterally symmetric. Respiratory: No distress, CTA bilaterally, Chest nontender Abdomen: Soft, Nontender, Nondistended, Normal bowel sounds. Negative for: Pulsatile mass Extremities: Nontender, No edema Skin: Normal color, No rash Neurological: Alert, Oriented x3, Cranial nerves II-XII grossly intact, Normal Strength, Normal Sensation Psychological: Normal affect, Normal Mood Diagnostic/Tx/Re-eval - EKG Initial EKG Interpretation: - - Atrial fibrillation with a ventricular rate of 96. There are lateral ST depressions that were faintly present on prior EKG in leads V6 through V4, but this seems to be exaggerated in lead V3. There is T wave flattening noted inferiorly that appears to be new. No evidence of ST elevation. - Medical Decision Making Patient presented for evaluation secondary to chest pain. She complained of some leg pain, and did have asymmetric pulses but seems to have good perfusion of the legs and the leg but she was complaining of having pain and actually has the better pulse when compared to the contralateral leg so I do not think that this is a presentation of a dissection. Chest pain work-up was obtained. Patient was given nitroglycerin and aspirin was already given in route. EKG to my interpretation seems to show some exaggeration of the lateral ST changes with new flattening of the patient's T waves inferiorly concerning for ischemia. CBC chemistry and troponin were unremarkable. Patient continued to have pain despite completion of a nitroglycerin series. I am concerned for the possibility of acute coronary syndrome in this patient, I discussed it with her degreasing solution mixer Dr. Wilkinson who is in agreement that treatment with nitroglycerin and Lovenox at this point is appropriate. I discussed this with the hospitalist and the patient will be admitted to intensive care. Critical care time (excluding procedures): 30-74 minutes ED Disposition - Plan for ED Patient: Disposition: Acute Care Hospital [facility] Diagnosis: Acute coronary syndrome
[2019-06-12] MEDS: Nitroglycerin SL (ED/IMG/CATH) 0.4 MG TABLET SUBLINGUAL ×2 (04:06→04:12)
[2019-06-12 04:18] LABS: Anion Gap 8 (5-15); BUN 18 mg/dL (7-18); BUN/Creat Ratio 21.7 RATIO (10-20); Calcium,Total 8.6 mg/dL (8.5-10.1); Chloride 105 mmol/L (98-107); Creatinine, Serum 0.83 mg/dL (0.55-1.02); EST Glomerular Filtration Rate 69 mL/min (>60); Est Glom Filt Rate - Afr Amer 84 mL/min (>60); Estimated Creatinine Clearance 39.91 ml/min; Glucose 140 mg/dL (74-106); Potassium 4.3 mmol/L (3.5-5.1); Sodium Level 139 mmol/L (136-145)
[2019-06-12] MEDS: Enoxaparin 60 MG/0.6 ML Syringe SC (04:49)
--- NOTE | 2019-06-12 04:53 | HP.PCM_ITS ---
History of Present Illness Date of Admission: 06/12/19 Chief Complaint: chest pain The patient is a 83 year old F with an extensive PMH as outlined. She was admitted via the ED with a complaitn of chest pain, with associated cramping in her left lower extremity. Chest pain was pressure-like. And was tight and heavy. She had no aggravating or relieving factors. It was initially mildly relieved by sublingual nitroglycerin. She also felt her heart racing. She denied any shortness of breath, lightheadedness or dizziness and chest pain did not radiate. On admission in the ED, vitals were significant for blood pressure of 153/72 with pulse rate of 84 and respiratory rate of 17. She was saturating at 98% on room air. Chemistry was essentially unremarkable initial troponin was negative. CBC was also unremarkable. On admission in the ED, chest pain was refractory to sublingual nitroglycerin so she was started on nitro drip. EKG done showed A. fib which was rate controlled with rate of [address] depressions in V3 to V6. ED doctor discussed with marketing program manager about the lateral ST changes concerning for ischemia and she was given therapeutic dose of Lovenox and started on nitro drip. She has been admitted to be managed for chest pain. [] Past Medical History Past Medical History (Chronic Problems): Chronic Problems (Last Reviewed 04/26/19 @ 09:34 by Chika Toth) Essential hypertension (Chronic) Left carotid bruit (Chronic) Valvular heart disease (Chronic) Carotid artery disease (Chronic) Thoracic aortic aneurysm without rupture (Chronic) Atherosclerotic heart disease of [place] coronary artery without angina pectoris (Chronic) PRO to LAD, SVG to distal LCFX, SVG to RCA 2009; PTCA/Stent to SVG of [facility] 11/13/11 Aortocoronary bypass status (Chronic ~2009) PRO to LAd, SVg to distal LCFX, SVG to RCA 2009 Chronic diastolic (congestive) heart failure (Chronic) Paroxysmal atrial fibrillation (Chronic) Presence of stent in coronary artery (Chronic ~11/13/11) PTCA/Stent to SVG of [facility] 11/13/11 Hyperlipidemia (Chronic) Aortic insufficiency (Chronic) Mild Mitral valve regurgitation (Chronic) Aortic valve disorder (Chronic) Medical History: Medical History (Last Reviewed 04/26/19 @ 09:34 by Chika Toth) Essential hypertension (Chronic) I10 Atherosclerotic heart disease of [place] coronary artery without angina pectoris (Chronic) I25.10 PRO to LAD, SVG to distal LCFX, SVG to RCA 2009; PTCA/Stent to SVG of OM2 11/13/11 Chronic diastolic (congestive) heart failure (Chronic) I50.32 Paroxysmal atrial fibrillation (Chronic) I48.0 Hyperlipidemia (Chronic) E78.5 Atrial flutter (Acute) I48.92 Sinus bradycardia (Acute) R00.1 Aortic insufficiency (Chronic) I35.1 Mild Mitral valve regurgitation (Chronic) I34.0 Aortic valve disorder (Chronic) I35.9 GERD (gastroesophageal reflux disease) K21.9 Left carotid bruit R09.89 Nonrheumatic mitral valve regurgitation I34.0 Peripheral vascular disease I73.9 Thoracic aortic aneurysm I71.2 Chest pain (Resolved) R07.9 Ascending aortic aneurysm (Inactive) I71.2 Aortic Root Atherosclerosis of coronary artery bypass graft without angina pectoris (Inactive) I25.810 PRO to LAD< SVG to distal L CFX, SVG to RCA 2009 Carotid bruit (Inactive) R09.89 Left Chronic insomnia (Inactive) F51.04 Diastolic dysfunction I51.9 Family history of premature coronary heart disease (Inactive) Z82.49 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 Z79.899 Mitral valve disorder (Inactive) I05.9 Paroxysmal atrial fibrillation I48.0 Allergies alendronate sodium [From Fosamax] Allergy (Verified 06/12/19 04:00) Unknown atorvastatin calcium [From Lipitor] Allergy (Verified 06/12/19 04:00) Unknown colestipol HCl [From Colestid] Allergy (Verified 06/12/19 04:00) Unknown cortisone acetate [From Cortone] Allergy (Verified 06/12/19 04:00) Unknown ezetimibe [From Zetia] Allergy (Verified 06/12/19 04:00) Unknown gabapentin Allergy (Verified 06/12/19 04:00) Unknown goserelin acetate [From Zoladex] Allergy (Verified 06/12/19 04:00) Unknown nabumetone Allergy (Verified 06/12/19 04:00) Other paroxetine HCl [From Paxil] Allergy (Verified 06/12/19 04:00) Unknown rosuvastatin calcium [From Crestor] Allergy (Verified 06/12/19 04:00) Unknown sertraline HCl [From Zoloft] Allergy (Verified 06/12/19 04:00) Unknown venlafaxine HCl [From Effexor] Allergy (Verified 06/12/19 04:00) Unknown hydrocodone Adverse Reaction (Intermediate, Verified 06/12/19 04:00) Unknown acetaminophen [From Vicodin] Adverse Reaction (Verified 06/12/19 04:00) KEEPS ME AWAKE carvedilol Adverse Reaction (Verified 06/12/19 04:00) Unknown hydrocodone bitartrate [From Vicodin] Adverse Reaction (Verified 06/12/19 04:00) KEEPS ME AWAKE venlafaxine Adverse Reaction (Severe, Uncoded 06/12/19 04:00) Unknown Home Medications: Ambulatory Orders Medication Instructions Recorded Calcium Carbonate [Calcium] 600 mg PO DAILY 03/28/15 [place]-3 Fatty Acids [Fish Oil] 1,000 mg PO DAILY 03/28/15 Nitroglycerin (INPATIENT USE) 0.4 mg SUBLINGUAL Q5M PRN #6 tab 05/23/17 [Nitrostat] esomeprazole magnesium 20 mg 20 mg PO QDAY PRN 09/05/17 capsule,delayed release aspirin 81 mg tablet,delayed 81 mg PO Q OTHER DAY tab 04/13/18 release amlodipine 5 mg tablet 5 mg PO QDAY #90 tab 09/30/18 latanoprost 0.005 % eye drops 1 drp OPHTHALMIC QHS #8 ml 09/30/18 ramipril 10 mg capsule 10 mg PO BID #180 cap 09/30/18 isosorbide mononitrate 60 mg 60 mg PO QAM #90 tab 01/04/19 tablet,extended release 24 hr metoprolol succinate 50 mg 50 mg PO BID #180 tab 04/13/19 tablet,extended release 24 hr digoxin 125 mcg (0.125 mg) tablet 125 mcg PO DAILY #30 tab 04/26/19 potassium 99 mg tablet 99 mg PO DAILY tab 04/26/19 furosemide 20 mg tablet 10 mg PO DAILY #45 tab 05/10/19 Surgical History: Surgical History (Last Reviewed 04/26/19 @ 09:34 by Chika Toth) Aortocoronary bypass status (Chronic) Onset Date: ~2009 Z95.1 PRO to LAd, SVg to distal LCFX, SVG to RCA 2009 Presence of stent in coronary artery (Chronic) Onset Date: ~11/13/11 Z95.5 PTCA/Stent to SVG of OM2 11/13/11 History of knee replacement, total Z96.659 History of back surgery Z98.890 History of right shoulder replacement Z96.611 History of total hysterectomy Z98.890, Z90.710 History of percutaneous transluminal coronary angioplasty (Inactive) Z98.61 PTCA/stent to SVG of OM2 11/13/2011, 03/25/12 Surgical History: angioplasty, coronary bypass surgery - Coronary artery bypass grafting was done in 2011. 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: No pertinent CUBING MACHINE TENDER history Smoking Status: Never smoker - *Family History Maternal Family History: Family History (Last Reviewed 04/26/19 @ 09:34 by Chika Toth) Brother CAD (coronary artery disease) Diabetes Myocardial infarction Father CAD (coronary artery disease) Other Family history of premature coronary heart disease History Items: Heart Disease Paternal Family History: Family History (Last Reviewed 04/26/19 @ 09:34 by Chika Toth) Brother CAD (coronary artery disease) Diabetes Myocardial infarction Father CAD (coronary artery disease) Other Family history of premature coronary heart disease History Items: Heart Disease Review of Systems Constitutional: Denies: Chills, Fever, Malaise, Weakness, Weight Change Eyes: Denies: Blurred vision HEENT: Denies: Head Aches, Sinus Congestion, Sinus Drainage Cardiovascular: Reports: Chest Pain, Chest Pressure, Chest Tightness, Palpitations. Denies: Claudication, Edema, Heaviness, Light Headedness, Orthopnea, Paroxysmal Noc. Dyspnea, Syncope Respiratory: Denies: Cough, Shortness of Breath, Shortness of breath at rest, Shortness of breath upon exertion, Sputum production Gastrointestinal: Denies: Abdominal Pain, Nausea, Vomiting Genitourinary: Denies: Dysuria Musculoskeletal: Denies: Joint Pain, Joint Tenderness Skin: Denies: Rash, Wounds Neurological: Denies: Numbness, Tingling, Focal weakness Psychiatric: Denies: Anxiety, Depression, Homicidal Ideations, Suicidal Ideations Hematologic/ Lymphatic: Denies: Easy Bruising, Easy Bleeding VTE Information - Inpt Only VTE Present on Admission: No VTE Pharm Prophylaxis ordered?: Yes Patient Problems: Active and Suspected Problems (Last Reviewed 04/26/19 @ 09:34 by Chika Toth) Acute coronary syndrome (Acute) - Physical Exam Vitals/I&O's: Vital Signs Temp Pulse Resp BP Pulse Ox 97.5 F L 98 12 129/77 H 98 06/12/19 03:39 06/12/19 04:12 06/12/19 03:39 06/12/19 04:18 06/12/19 03:39 Oxygen Delivery Method Room Air Weight: 133 lb 6.075 oz Body Mass Index (BMI) 24.3 General: Alert, Oriented x3, Cooperative, No apparent distress HEENT: Atraumatic, PERRLA, EOMI, Normocephalic Oral: Dry Mucosa Neck: Supple, No JVD, Negative Carotid Bruits Lungs: Clear to auscultation, Normal air movement, No rhonchi, No wheeze, No rales Cardiovascular: No murmurs, Irregular Rate - and rhythm; Afib, rate controlled. Abdomen: Bowel Sounds Present, Soft, Non Tender, Non-Distended, No Hepato- splenomegaly Extremities: No clubbing, No cyanosis, No edema, Capillary Refill Less than 3 Seconds Skin: No rashes, No breakdown Musculoskeletal: No Tenderness to Palpation of Joints or Extremities Lymphatic: No Cervical, Supraclavicular, or Inguinal Adenopathy Neurological: Cranial nerves II-XII grossly intact, Neuro grossly intact, Motor Exam 5/5 strength throughout Psych/Mental Status: Normal Affect, Appropriate, Alert and oriented to time, place, person, mood and affect Laboratory Results 06/12/19 03:50: WBC 6.1, RBC 3.89 L, Hgb 12.1, Hct 36.2 L, MCV 93.1, MCH 31.1, MCHC 33.4, RDW Std Deviation 54.2 H, RDW Coeff of [place] 15.9 H, Plt Count 245, MPV 9.4, Immature Gran % (Auto) 0.200, Neut % (Auto) 59.2, Lymph % (Auto) 29.4, [place] % (Auto) 9.7, Eos % (Auto) 0.8, Baso % (Auto) 0.7, Absolute Neuts (auto) 3.6, Absolute Lymphs (auto) 1.78, Nucleated RBC % 0.3 06/12/19 03:50: Sodium 139, Potassium 4.3, Chloride 105, Carbon Dioxide 26.0, Anion Gap 8, BUN 18, Creatinine 0.83, Estim Creat Clear Calc 39.91, Est GFR (MDRD) Af Amer 84, Est GFR (MDRD) Non-Af 69, BUN/Creatinine Ratio 21.7 H, Glucose 140 H, Calcium 8.6, Troponin I < 0.015 Diagnostic Data Chest X-Ray 06/12/19 03:50 IMPRESSION: No acute findings. Electronically Signed: Wei Sonia, at 4:07 EST Tel , Service support , Current Medications Nitroglycerin/Dextrose () 250 mls @ 3 mls/hr CONT INF .[id number] [facility]; Protocol Nitroglycerin (Nitrostat) 0.4 mg SUBLINGUAL Q5M PRN PRN Reason: Chest pain Last Admin: 06/12/19 04:12 Dose: 0.4 mg Documented by: Assessment/Plan All Active Problems (Last Reviewed 04/26/19 @ 09:34 by Chika Toth) Acute coronary syndrome (Acute) Paroxysmal atrial fibrillation with RVR (Acute) Atrial fibrillation with RVR (Acute) Hypokalemia (Acute) Sinusitis, acute (Acute) Productive cough (Acute) Atrial flutter (Acute) Sinus bradycardia (Acute) Chest pain (Resolved) Diarrhea (Resolved) 83 y/o admitted with chest pain refractory to SL nitroglycerin 1. Chest pain to r/o ACS * admit to PCU with telemetry * initial troponin was negative; EKG however showed lateral ST depression concerning for ischemia * CXR showed no acute cardiopulmonary findings * cycle troponins * on Nitro drip for refractory chest pain; will continue, and titrate as per protocol * PO aspirin 81mg daily * consult cardiology * 2. Afib: rate controlled. On metoprolol. Not on anticoagulation o/a of history of epistaxis. On aspirin and digoxin as well as metoprolol 3.HFpEF: * not in exacerbation. * last 2D echo(03/02) showed EF of 65%, unable to assess diastolic dysfunction due to arrhythmia; PA systolic pressure of 36mmhg. * stable * on furosemide. * 4. CAD s/p CABG: on aspirin, metoprolol and statin, aslo on imdur 5.Hypertension: on amlodipine and metoprolol. DVT prophylaxis: lovenox Code status: full code. * Patient counseled extensively about different types of CODE STATUS including full code, DNR CCA and DNR CCA. Patient elects to be full code. Total [id number] time 16 minutes. Code Visit OBSV E&M: 54270 Initial observation care L3 Procedures: 90111 Advncd Care Plan 30 Min
[2019-06-12] MEDS: Nitroglycerin Infusion 250 ML 3 MG CONT INF (05:02)
--- NOTE | 2019-06-12 07:34 | EKG12_ITS ---
Test Reason : CHEST PAIN Blood Pressure : / mmHG Vent. Rate : 101 BPM Atrial Rate : 153 BPM P-R Int : 000 ms QRS Dur : 072 ms QT Int : 324 ms P-R-T Axes : 000 030 255 degrees QTc Int : [address] & T wave abnormality, consider inferior ischemia or digitalis effect ST & T wave abnormality, consider anterolateral ischemia or digitalis effect Abnormal ECG When compared with ECG of 12-JUN-2019 03:44, No significant change was found Confirmed by ZACK BOYCE, MAURO ([id number]), pictures editor EM LANDA ([id number]) on 07/13/2019 10:22:20 AM Referred By: Rachel Bernabe Confirmed By:MAURO DIXON MD
--- NOTE | 2019-06-12 07:57 | PCM.PN.BLA ---
Progress Note Patient is an 83-year-old lady admitted with intractable chest pain GENERAL: cooperative HEENT: Atraumatic; EYES; Anicteric, Normal Conjunctiva NECK; supple, normal thyroid, RESPIRATORY: Diminished to auscultation CARDIOVASCULAR: Irregularly irregular, with a systolic murmur GI: soft, normoactive bowel sounds, : No Renal angle tenderness; EXTREMITIES: No edema, no clubbing, MUSCULOSKELETAL: no muscle waisting NEURO: Awake; no lateralizing signs. SKIN: No Rash PSYCH; Flat affect 1. Chest pain -Admitted to the intensive care unit started on nitroglycerin drip in view of her persistent pain. Consult placed to patient's document controller Dr. Wilkinson; subsequent management deferred 2. Chronic A. fib ?Not on systemic anticoagulation due to history of recurrent epistaxis 3. Chronic congestive heart failure with preserved ejection fraction ?Last echo obtained on 1118 demonstrated EF of 65% 4. Hypertension ~ blood pressure controlled, home medications continued with dose adjustment as needed 5. Coronary artery disease with previous CABG ?Patient is on recommended medications including aspirin metoprolol statin therapy as well as Imdur 6. Dyslipidemia ~With diet patient has reported allergies to statin therapy 7. Valvular heart disease -Known history of mitral valve regurgitation, followed by cardiology STROKE Vital Signs/Narrative: Vital Signs Temp Pulse Resp BP Pulse Ox 06/12/19 07:43 104 H 06/12/19 07:35 116/69 06/12/19 06:55 148/78 H 06/12/19 06:45 96 18 126/86 H 97 06/12/19 06:40 155/82 H 06/12/19 06:35 104 H 19 H 155/82 H 97 06/12/19 06:25 82 06/12/19 06:19 97.0 F L 82 18 119/89 H 97 06/12/19 05:49 99 06/12/19 05:46 107 H 15 139/59 H 96 06/12/19 05:38 85 16 131/59 H 97 06/12/19 05:24 153/72 H 06/12/19 05:06 84 17 150/66 H 98 06/12/19 05:02 100 164/104 H 06/12/19 04:18 129/77 H 06/12/19 04:12 98 144/79 H 06/12/19 04:06 87 151/53 H
--- NOTE | 2019-06-12 08:27 | ECHOD_ITS ---
Reason For Study: Chest Pain Procedure This was a 2D Doppler, Color Flow transthoracic echocardiogram. The exam was of adequate technical quality. Exam performed portable in ICU/CCU. Left Ventricle Normal LV size. Left ventricular systolic function is normal. The estimated ejection fraction is 65 %. Unable to assess diastolic dysfunction. No regional wall motion abnormalities noted. Right Ventricle Normal RV size. Normal systolic function. Atria The left atrium is mildly enlarged. The right atrium is mildly enlarged. No doppler evidence for ASD. Mitral Valve There is no mitral annular calcification. Mild diffuse mitral valve thickening. Mild focal mitral valve calcification, bileaflet. Moderate (2+) mitral valve insufficiency. Tricuspid Valve Normal tricuspid valve. Moderate (2+) tricuspid valve insufficiency. Right ventricular systolic pressure estimated to be 35 mmHg. Aortic Valve Trisinus/trileaflet aortic valve. Mild diffuse aortic valve thickening. Mild focal aortic valve calcification. Aortic sclerosis, no stenosis. Mild (1+) aortic valve insufficiency. Pulmonic Valve The pulmonic valve is not well visualized. Trivial pulmonic valve insufficiency. Great Vessels Normal sized aortic root. Pericardium/Pleural No pericardial effusion. MMode/2D Measurements & Calculations LVIDd: 3.3 cm IVSd: 1.0 cm Ao root diam: 3.3 cm LVIDs: 2.5 cm LVPWd: 1.1 cm RVDd: 1.9 cm FS: 23.5 % LAV(MOD-bp): 43.3 ml LVAd ap4: 13.3 cm2 SV(MOD-sp4): 14.3 ml LAV(MOD-bp) Indexed: 26.9 ml/m2 EDV(MOD-sp4): 25.4 ml LAV(MOD-sp2): 43.0 ml EDV(sp4-el): 25.7 ml LAV(MOD-sp4): 38.7 ml LVAs ap4: 7.8 cm2 ESV(MOD-sp4): 11.2 ml ESV(sp4-el): 10.5 ml EF(MOD-sp4): 56.1 % EF(sp4-el): 59.3 % SV(sp4-el): 15.3 ml LA A4 area: 15.4 cm2 LA dimension(2D): 4.1 cm RA A4 area: 19.2 cm2 Doppler Measurements & Calculations MV E max clementina: 99.6 cm/sec Ao V2 max: 129.3 cm/sec AI max clementina: 416.6 cm/sec Ao max P.7 mmHg AI max P.4 mmHg Ao V2 mean: 96.3 cm/sec Ao mean P.0 mmHg AI dec slope: 249.1 cm/sec2 Ao V2 VTI: 26.0 cm AI P1/2t: 489.9 msec LV V1 max: 96.9 cm/sec PA V2 max: 75.1 cm/sec TR max clementina: 260.4 cm/sec LV V1 max P.8 mmHg TR max P.1 mmHg Interpretation Summary Left ventricular systolic function is normal. The estimated ejection fraction is 65 %. The left atrium is mildly enlarged. The right atrium is mildly enlarged. Mild diffuse mitral valve thickening. Mild focal mitral valve calcification, bileaflet. Moderate (2+) mitral valve insufficiency. Moderate (2+) tricuspid valve insufficiency. Aortic sclerosis, no stenosis. Mild (1+) aortic valve insufficiency. Trivial pulmonic valve insufficiency. Right ventricular systolic pressure estimated to be 35 mmHg. Unable to assess diastolic dysfunction. Ordering Physician: Shawn Wilkinson Referring Physician: Rachel Bernabe Performed By: Alea Okeefe, RDBNIH, RVT
--- NOTE | 2019-06-12 08:50 | NURSING ---
Echo in progress
[2019-06-12] MEDS: Pantoprazole Sodium 20 MG Tablet PO (09:24)
[2019-06-12] MEDS: Metoprolol(XL)Succ 50 MG Tablet PO (09:24)
[2019-06-12] MEDS: Furosemide 20 MG Tablet 10 MG PO (09:29)
[2019-06-12] MEDS: Ramipril 10 MG Capsule PO ×2 (09:30→21:18)
[2019-06-12] MEDS: Calcium (Elemental) 500 MG Tablet PO (09:30)
[2019-06-12] MEDS: Aspirin E.C. 81 MG Tablet PO (09:31)
--- NOTE | 2019-06-12 09:50 | PCM.CONS.C ---
Problem List (1) Chest pain Status: Acute (2) CAD in [place] artery Status: Chronic (3) Presence of stent in coronary artery Status: Chronic Comment: PTCA/Stent to SVG of OM2 11/13/11 (4) Aortocoronary bypass status Status: Chronic Comment: PRO to LAd, SVg to distal LCFX, SVG to RCA 2009 (5) Atrial fibrillation Status: Chronic Qualifiers: Atrial fibrillation type: permanent Qualified Code(s): I48.21 - Permanent atrial fibrillation (6) Valvular heart disease Status: Chronic (7) Thoracic aortic aneurysm without rupture Status: Chronic (8) Hyperlipidemia Status: Chronic Qualifiers: Hyperlipidemia type: mixed hyperlipidemia Qualified Code(s): E78.2 - Mixed hyperlipidemia (9) Essential hypertension Status: Chronic (10) Carotid artery disease Status: Chronic Qualifiers: Laterality: bilateral Reason for Consult Date of Consultation: 06/12/19 History of Present Illness: The patient is a 83 year old white female who presents with a history of coronary artery disease status post bypass surgery in 2009 with a PRO to LAD, SVG to distal circumflex, and SVG to RCA a history of stenting to her SVG to her OM in 2011, paroxysmal atrial fibrillation, valvular heart disease, diastolic congestive heart failure, thoracic aortic aneurysm, hypertension, and hyperlipidemia. She states that recently she has been noticing cramping in her lower extremities. When she has cramping in her lower extremities, especially at night, she feels her heart pounding faster and she feels warm or flushed. She is also noted chronic intermittent epigastric discomfort, left lower rib cage discomfort, and back discomfort. She states some of these discomforts are more prominent with deep inspiration and somewhat tender to palpation. She states that she presented to the hospital because she was more concerned of her heart being elevated. In the emergency department, after evaluation, there were concerns of all her symptoms and there was concerns that she may have been experiencing an acute coronary syndrome. Her troponin I level was negative. Her ECG demonstrated atrial fibrillation with nonspecific ST/T wave abnormality. Her chest x-ray demonstrated no acute findings. She was subsequently placed in the ICU for further evaluation care on IV nitroglycerin. She does not believe the IV nitroglycerin has made any significant difference in any of her underlying discomforts. She has not been complaining of acute orthopnea or PND. There is been no worsening peripheral pitting edema. There is been no near syncope or syncope. She states she has noted over time that her vision is not as clear as it used to be. She does states she has been taking her medications as prescribed. There does seem to be some question as to whether or not she has been taking her digitalis medicine as listed on her outpatient medical records/home medical records. Since being in the ICU she has had repeat troponin I levels which have remained negative. Her repeat ECG is demonstrated no acute ECG changes. [] Past Medical History Allergies/Adverse Reactions: Allergies alendronate sodium [From Fosamax] Allergy (Verified 06/12/19 04:00) Unknown atorvastatin calcium [From Lipitor] Allergy (Verified 06/12/19 04:00) Unknown colestipol HCl [From Colestid] Allergy (Verified 06/12/19 04:00) Unknown cortisone acetate [From Cortone] Allergy (Verified 06/12/19 04:00) Unknown ezetimibe [From Zetia] Allergy (Verified 06/12/19 04:00) Unknown gabapentin Allergy (Verified 06/12/19 04:00) Unknown goserelin acetate [From Zoladex] Allergy (Verified 06/12/19 04:00) Unknown nabumetone Allergy (Verified 06/12/19 04:00) Other paroxetine HCl [From Paxil] Allergy (Verified 06/12/19 04:00) Unknown rosuvastatin calcium [From Crestor] Allergy (Verified 06/12/19 04:00) Unknown sertraline HCl [From Zoloft] Allergy (Verified 06/12/19 04:00) Unknown venlafaxine HCl [From Effexor] Allergy (Verified 06/12/19 04:00) Unknown hydrocodone Adverse Reaction (Intermediate, Verified 06/12/19 04:00) Unknown acetaminophen [From Vicodin] Adverse Reaction (Verified 06/12/19 04:00) KEEPS ME AWAKE carvedilol Adverse Reaction (Verified 06/12/19 04:00) Unknown hydrocodone bitartrate [From Vicodin] Adverse Reaction (Verified 06/12/19 04:00) KEEPS ME AWAKE venlafaxine Adverse Reaction (Severe, Uncoded 06/12/19 04:00) Unknown Home Medications: Ambulatory Orders Medication Instructions Recorded Calcium Carbonate [Calcium] 600 mg PO DAILY 03/28/15 [place]-3 Fatty Acids [Fish Oil] 1,000 mg PO DAILY 03/28/15 Nitroglycerin (INPATIENT USE) 0.4 mg SUBLINGUAL Q5M PRN #6 tab 05/23/17 [Nitrostat] esomeprazole magnesium 20 mg 20 mg PO QDAY PRN 09/05/17 capsule,delayed release aspirin 81 mg tablet,delayed 81 mg PO Q OTHER DAY tab 04/13/18 release amlodipine 5 mg tablet 5 mg PO QDAY #90 tab 09/30/18 latanoprost 0.005 % eye drops 1 drp OPHTHALMIC QHS #8 ml 09/30/18 ramipril 10 mg capsule 10 mg PO BID #180 cap 09/30/18 isosorbide mononitrate 60 mg 60 mg PO QAM #90 tab 01/04/19 tablet,extended release 24 hr metoprolol succinate 50 mg 50 mg PO BID #180 tab 04/13/19 tablet,extended release 24 hr digoxin 125 mcg (0.125 mg) tablet 125 mcg PO DAILY #30 tab 04/26/19 potassium 99 mg tablet 99 mg PO DAILY tab 04/26/19 furosemide 20 mg tablet 10 mg PO DAILY #45 tab 05/10/19 Past Medical History (Chronic Problems): Chronic Problems (Last Reviewed 04/26/19 @ 09:34 by Chika Toth) CAD in [place] artery (Chronic) Atrial fibrillation (Chronic) Essential hypertension (Chronic) Left carotid bruit (Chronic) Valvular heart disease (Chronic) Carotid artery disease (Chronic) Thoracic aortic aneurysm without rupture (Chronic) Atherosclerotic heart disease of [place] coronary artery without angina pectoris (Chronic) PRO to LAD, SVG to distal LCFX, SVG to RCA 2009; PTCA/Stent to SVG of [facility] 11/13/11 Aortocoronary bypass status (Chronic ~2009) PRO to LAd, SVg to distal LCFX, SVG to RCA 2009 Chronic diastolic (congestive) heart failure (Chronic) Paroxysmal atrial fibrillation (Chronic) Presence of stent in coronary artery (Chronic ~11/13/11) PTCA/Stent to SVG of [facility] 11/13/11 Hyperlipidemia (Chronic) Aortic insufficiency (Chronic) Mild Mitral valve regurgitation (Chronic) Aortic valve disorder (Chronic) Surgical History: angioplasty, coronary bypass surgery - Coronary artery bypass grafting was done in 2011. She also had a coronary stent the following year., total knee arthroplasty - the, - Psychiatric History: No pertinent psych hx [employer] History: No pertinent [employer] TE[employer]ER history - *Family History Maternal Family History: Family History (Last Reviewed 04/26/19 @ 09:34 by Chika Toth) Brother CAD (coronary artery disease) Diabetes Myocardial infarction Father CAD (coronary artery disease) Other Family history of premature coronary heart disease History Items: Heart Disease Paternal Family History: Family History (Last Reviewed 04/26/19 @ 09:34 by Chika Toth) Brother CAD (coronary artery disease) Diabetes Myocardial infarction Father CAD (coronary artery disease) Other Family history of premature coronary heart disease History Items: Heart Disease Smoking Status: Never smoker Review of Systems - Review of Systems General: Denies: Fever, Night Sweats, Fatigue Cardiovascular: Reports: Chest Discomfort, Palpitations. Denies: Shortness of Breath, Orthopnea, PND, Peripheral Edema, Lightheadedness, Dizziness, Near Syncope, Syncope Respiratory: Denies: Cough, Sputum Production, Hemoptysis Gastrointestinal: Denies: Hematemesis, Hematochezia, Melena Genitourinary: Denies: Dysuria, Hematuria Skin: Denies: Rash Subjectve: Is a thin frail appearing 83-year-old white female who appears to be resting comfortably at the moment in no acute distress. Objective: Vital Signs Temp Pulse Resp BP Pulse Ox 97.0 F L 92 15 134/74 H 95 06/12/19 06:19 06/12/19 09:24 06/12/19 09:00 06/12/19 09:30 06/12/19 09:00 Oxygen Flow Rate (L/min) 2 Oxygen Delivery Method Room Air Weight: 110 lb 0.171 oz Body Mass Index (BMI) 20.1 Intake and Output for Last 24 Hours 06/10/19 06/11/19 06/12/19 23:59 23:59 23:59 Intake Total 72.30 / 72.30 Balance 72.30 / 72.30 General: Awake, Alert, Oriented x 3, Cooperative, No Acute Distress HEENT: Atraumatic, Normocephalic, PERRL, EOMI, Sclera Non Icteric Oral: Moist Mucosa Neck: Supple, Good ROM, No JVD Lungs: Clear to auscultation Cardiovascular: Irregular Rhythm, Normal S1, Normal S2 Murmur Murmur: Grade 2/6, Soft, Mid Systolic, LLSB Abdomen: Bowel Sounds Present, Soft, Non Tender Extremities: No edema Neurological: No Focal Motor or Sensory Deficit Psych/Mental Status: Appropriate 06/12/19 03:50: WBC 6.1, RBC 3.89 L, Hgb 12.1, Hct 36.2 L, MCV 93.1, MCH 31.1, MCHC 33.4, Plt Count 245, MPV 9.4, Immature Gran % (Auto) 0.200, Neut % (Auto) 59.2, Lymph % (Auto) 29.4, [place] % (Auto) 9.7, Eos % (Auto) 0.8, Baso % (Auto) 0.7, Absolute Neuts (auto) 3.6, Nucleated RBC % 0.3 06/12/19 03:50: Sodium 139, Potassium 4.3, Chloride 105, Carbon Dioxide 26.0, Anion Gap 8, BUN 18, Creatinine 0.83, Est GFR (MDRD) Af Amer 84, Est GFR (MDRD) Non-Af 69, BUN/Creatinine Ratio 21.7 H, Glucose 140 H, Calcium 8.6, Troponin I < 0.015 06/12/19 06:52: Troponin I < 0.015 Rhythm: EKG: ECHO: 03-01-2019 Interpretation Summary Normal LV size. Left ventricular systolic function is normal. The estimated ejection fraction is 65 %. Unable to assess diastolic dysfunction due to arrhythmia. [place] diffuse mitral valve thickening. Mild-Moderate (1-2+) eccentric aortic valve insufficiency. Stress Test: 05-22-2017 Stress Test Report Pharmacologic myocardial perfusion stress test 81-year-old lady with a history of chest pain. Stress protocol: Resting EKG demonstrates normal sinus rhythm with rate of 73 bpm. Normal intervals are noted. Resting blood pressure is 174/82 mmHg. 0.4 mg regadenoson was infused per usual protocol followed by Intravenous saline flush injection. Continuous EKG monitoring was performed. The maximum heart rate attained was 104 bpm which was 74% of the maximum predicted heart rate. The maximum workload attained was 1 metabolic equivalent. At rest and at peak infusion there were no ST or T-wave changes noted to suggest abnormal flow reserve. No clinical angina was noted. The resting blood pressure is 174/82 with a final blood pressure of 140/70 mmHg. Myocardial perfusion protocol: 11.1 mCi of technetium 99m sestamibi was injected at rest. 0.4 mg of regadenoson was infused per usual protocol. At peak infusion 32.9 mCi of technetium 99m sestamibi was injected. Stress images were obtained. Stress and rest images were reconstructed and compared in the short axis vertical long and horizontal long axis. Gated images were also obtained. Perfusion SPECT analysis: Review of the stress images demonstrate normal uptake of tracer noted in all areas of the myocardium the resting images similarly demonstrated normal uptake of tracer noted in all areas of the myocardium. No areas of reversibility were noted suggest ischemia no previous infarct was noted. Gated SPECT analysis: Ejection fraction is noted to be 82%. Conclusion: Normal pharmacologic myocardial perfusion stress test. Preserved ejection fraction. Cardiac Cath: 05-22-2017 CONCLUSIONS Elevated Left Ventricular End Diastolic Pressure Normal LV size, wall motion,and systolic function LVEF: by LV gram 65 % [place] Multivessel CAD PRO to LAD: patent SVG to OM1: Stented and patent SVG to RPDA: patent Aortic Root dilated Aortic Valve Insufficiency Mild to Moderate Mitral Valve Insufficiency Mild to Moderate Left subclavian artery: ulcerated appearinig plaque Left vertebral artery: ostial appearing 75% stenosis RECOMMENDATIONS Risk factor modification Medical therapy Staged percutaneous intervention to the RPDA via the SVG to the RPDA: if the patient remains symptomatic despite optimized medial therapy Consider further evaluation of the left subclavian artery and left vertebral artery with CTA if clinically indicated CORONARY ANGIOGRAPHY DOMINANCE: Right Dominant LEFT HEART ASSESSMENT Left Ventricular Ejection Fraction: by LV Gram 65 % Normal LV wall motion Elevated Left Ventricular End Diastolic Pressure LVEDP: 23 mmHg LEFT MAIN: Mild luminal irregularities LEFT ANTERIOR DECENDING ARTERY: PROX LAD: Long: Diffuse: Irregular: Hazy: 95 % Stenosis MID LAD: is subtotally occluded with the mid to distal LAD filling from antegrade flow but predominantly PRO graft flow with no angiographically significant appearing disease distal to the graft attachment DIAGONAL 1: Proximal - Long: Diffuse: Irregular: Hazy 85 % Stenosis (small caliber vessel) CIRCUMFLEX ARTERY: MID CIRC: Long: Diffuse: Irregular: Hazy 75 % Stenosis OM 1: Proximal - is occluded with the remainder of the vessel filling from SVG graft flow with no angiographically significant appearing disease distal to the graft attachment RIGHT CORONARY ARTERY: Diffuse: Irregular: Hazy: 50-75 % Stenosis DISTAL RCA: 95 % Stenosis RT PDA: Mid - 50-75 % Stenosis: filling from both antegrade flow but predominantly from SVG graft flow with the 50-75% stenosis distal to the graft attachment GRAFTS: PRO graft to the Mid LAD is patent Saphenous Vein graft to the RPDA is patent Saphenous Vein graft to the 1st OM previously placed stent is patent VALVE FINDINGS: Aortic Valve Insufficiency: Grade 1 - Grade 2 Mitral Valve Insufficiency - Grade 1 - Grade 2 AORTIC ROOT: Dilated CXR: FINDINGS: No evidence of pneumonia, pulmonary edema, pneumothorax or pleural effusion. Cardiac silhouette, hilar and mediastinal contours with no acute findings. Mild cardiomegaly. Sternotomy wires and mediastinal surgical clips. Atherosclerosis of the thoracic aorta. Degenerative osseous changes with no acute osseous abnormality. Right shoulder reverse arthroplasty. Chest CT Scan: 05-20-2017 IMPRESSION: Ectasia of the ascending aorta, measuring up to 4.0 cm in maximal dimension. No evidence of thoracic aortic dissection or pulmonary embolus. Bibasilar atelectasis. Otherwise, clear lungs. Assessment/Plan 1. Chest pain The patient was admitted because of concerns of chest discomfort. She appears to be having concerns of a variety of chest discomforts. Her discomforts have been been in various locations and have waxed and waned over time. They have been more chronic than acute. They also can be exacerbated by deep inspiration as well as by palpation. Her cardiac evaluation thus far has been negative based upon her cardiac enzymes. Her ECGs have demonstrated no new acute ECG changes. Her chest x-ray demonstrated no acute cardiopulmonary pathology per radiology. She is continuing to be monitored. She is continuing medical management as deemed appropriate. An echocardiogram was requested to reassess her left ventricular wall motion and systolic function. Depending upon her clinical course she may or may not need further noninvasive and/or invasive studies. However, she states she would prefer to avoid invasive studies if possible. 2. CAD status post PCI status post CABG She has a history of extensive CAD status post revascularization therapies as noted. Her most recent noninvasive and invasive studies are as noted. She does have CAD that is deemed not amenable to revascularization therapy. At the moment her cardiac enzymes remain negative. As noted above her ECG demonstrated no new acute changes. She will continue medical management at this time. Her IV nitroglycerin drip will be weaned off/discontinued. She will continue oral therapy. Her echocardiogram once performed in process will be reviewed for reassessment of her left ventricular wall motion and systolic function. 3. Atrial fibrillation She has persistent/permanent atrial fibrillation. Based upon her home medication list she was on beta-danica therapy and digitalis therapy. Her medications will be adjusted and her levels checked. She will also continue anticoagulant therapy as deemed appropriate. 4. Valvular heart disease She does have a history of valvular heart disease as previously noted on her diagnostic studies. This can also be reassessed with her echocardiogram. 5. Thoracic aortic aneurysm She has had dilatation of her aortic root in the past. This is been followed noninvasively. Her echocardiogram will be reviewed. Depending upon her course she may or may not need reassessment with a chest CT scan. 6. Hyperlipidemia She will continue medical therapy as deemed appropriate. However there have been concerns of her being intolerant to lipid-lowering medications. 7. Hypertension Her blood pressure will be followed and her medications adjusted accordingly. 8. Carotid artery disease She has a history of carotid artery disease. This can be reassessed as deemed appropriate. Comment: The patient's case was discussed and reviewed with the patient and previously with the [facility] emergency department staff. This note was generated using a voice recognition system and there may be incorrect words, spelling or punctuation that were not noted when reviewing the office note prior to saving.
[2019-06-12] MEDS: Isosorbide Mononitrate 60 MG Tablet PO (12:03)
[2019-06-12] MEDS: amLODIPine 5 MG Tablet PO (12:03)
[2019-06-12] MEDS: 0.9% Saline Lock 10 ML Syringe IV (12:11)
[2019-06-12 13:37] LABS: Digoxin Level 1.19 ng/mL (0.80-2.00)
--- NOTE | 2019-06-12 13:55 | CM.UR ---
Noted the bed roster and admission in demographic banner at top both have patient listed as OBS however the order written at 06/12/19 at 4:53am states patient should be a IP admission. Alerted registration. Miroslava Beatty RN, CCM.
--- NOTE | 2019-06-12 20:35 | NURSING ---
Dr. Wilkinson contacted, ordered okay for transfer to PCU. Dr. Nettles contacted and transfer orders obtained. Nursing tapper supervisor aware and provided room 114. Called report to FAMILIA Jeffrey. Pt transferred via bed and on campus monitor. All medications and personal belongings transferred with pt.
[2019-06-12] MEDS: Latanoprost 0.005% 1 Bottle 1 DRP OPHTHALMIC (21:18)
[2019-06-12] MEDS: Metoprolol(XL)Succ 50 MG Tablet 75 MG PO (21:18)
[2019-06-13 02:58] VITALS: PULSE 66
[2019-06-13 03:00] VITALS: BP 102/76; PULSE 66; RESP 15; TEMP 36.6; O2SAT 96
--- NOTE | 2019-06-13 05:55 | EKG12_ITS ---
Test Reason : CP Blood Pressure : / mmHG Vent. Rate : 096 BPM Atrial Rate : 101 BPM P-R Int : 000 ms QRS Dur : 072 ms QT Int : 350 ms P-R-T Axes : 000 034 256 degrees QTc Int : [address] & T wave abnormality, consider inferior ischemia ST & T wave abnormality, consider anterolateral ischemia Abnormal ECG Confirmed by ZACK BOYCE, MAURO ([id number]), editor house organ MARCELA JENSEN ([id number]) on 06/14/2019 10:10:42 AM Referred By: MR Confirmed By:MAURO DIXON MD
[2019-06-13 07:00] VITALS: PULSE 75
[2019-06-13 07:29] LABS: Absolute Lymphocyte Count 2.35 X10^3/uL (0.83-4.51); Absolute Neutrophil Count 2.2 X10^3/uL (2.0-7.7); Basophil# 0.04 X10^3/uL; Basophil% 0.8 % (0-1); Eosinophil# 0.08 X10^3/uL; Eosinophils% 1.5 % (0-5); Hematocrit 35.8 % (37-47); Hemoglobin 11.7 g/dL (12.0-15.0); Lymphocyte # 2.35 X10^3/ul (4.0); Lymphocyte % 45.5 % (19-41); Mean Corp Hgb Conc 32.7 g/dL (32-36); Mean Corpuscular Hgb 30.8 pg (27.0-32.0); Mean Corpuscular Volume 94.2 fL (81-99); Mean Platelet Vol. 9.5 fl (6.2-12.0); Monocyte# 0.49 X10^3/uL; Monocyte% 9.5 % (0-10); NRBC Flagged by Analyzer 0 % (0-5); Neutrophil % 42.5 % (47-70); Platelet Count 239 K/mm3 (150-450); RBC Distribution Width CV 16.3 % (11.6-14.6); RBC Distribution Width SD 55.8 fl (35.1-43.9); White Blood Count 5.2 K/mm3 (4.4-11.0)
[2019-06-13 07:59] LABS: Anion Gap 8 (5-15); BUN 25 mg/dL (7-18); Calcium,Total 8.9 mg/dL (8.5-10.1); Chloride 104 mmol/L (98-107); Creatinine, Serum 0.81 mg/dL (0.55-1.02); EST Glomerular Filtration Rate 72 mL/min (>60); Est Glom Filt Rate - Afr Amer 87 mL/min (>60); Estimated Creatinine Clearance 40.24 ml/min; Glucose 94 mg/dL (74-106); Potassium 4.1 mmol/L (3.5-5.1); Sodium Level 139 mmol/L (136-145)
[2019-06-13] MEDS: Ramipril 10 MG Capsule PO (08:46)
[2019-06-13] MEDS: Isosorbide Mononitrate 60 MG Tablet PO (08:46)
[2019-06-13 08:47] VITALS: PULSE 64
[2019-06-13] MEDS: Digoxin 125 MCG Tablet PO (08:47)
[2019-06-13] MEDS: Furosemide 20 MG Tablet 10 MG PO (08:48)
[2019-06-13 08:49] VITALS: PULSE 75
[2019-06-13] MEDS: amLODIPine 5 MG Tablet PO (08:49)
[2019-06-13] MEDS: Metoprolol(XL)Succ 50 MG Tablet 75 MG PO (08:49)
[2019-06-13] MEDS: Pantoprazole Sodium 20 MG Tablet PO (08:49)
[2019-06-13] MEDS: Calcium (Elemental) 500 MG Tablet PO (08:49)
[2019-06-13 09:00] VITALS: BP 130/50; PULSE 59; RESP 16; TEMP 36.8; O2SAT 99
--- NOTE | 2019-06-13 09:52 | PN_ITS ---
Patient Problems: Active and Suspected Problems (Last Reviewed 04/26/19 @ 09:34 by Chika Toth) Acute coronary syndrome (Acute) Chest pain (Acute) Reason for Visit: Chest Pain Subjective: Patient is an 83-year-old lady admitted with intractable chest pain. Chest pain resolved enzymes have remained negative to date Case discussed with Dr. Wilkinson plan is for patient to be discharged home with continuation of current medical therapy. Objective: GENERAL: cooperative HEENT: Atraumatic; EYES; Anicteric, Normal Conjunctiva NECK; supple, normal thyroid, RESPIRATORY: Diminished to auscultation CARDIOVASCULAR: Irregularly irregular, with a systolic murmur GI: soft, normoactive bowel sounds, : No Renal angle tenderness; EXTREMITIES: No edema, no clubbing, MUSCULOSKELETAL: no muscle waisting NEURO: Awake; no lateralizing signs. SKIN: No Rash PSYCH; Flat affect Vitals/I&O's: Vital Signs Temp Pulse Resp BP Pulse Ox 97.8 F 75 15 102/76 96 06/13/19 03:00 06/13/19 08:49 06/13/19 03:00 06/13/19 03:00 06/13/19 03:00 Oxygen Flow Rate (L/min) 2 Oxygen Delivery Method Room Air Weight: 49.3 kg Body Mass Index (BMI) 20.1 Intake and Output for Last 24 Hours 06/11/19 06/12/19 06/13/19 23:59 23:59 23:59 Intake Total 476.75 / 476.75 100 / 100 Output Total 550 / 550 Balance -73.25 / -73.25 100 / 100 Laboratory Results 06/12/19 12:00: Troponin I < 0.015 06/12/19 12:00: Digoxin 1.19 06/13/19 06:40: WBC 5.2, RBC 3.80 L, Hgb 11.7 L, Hct 35.8 L, MCV 94.2, MCH 30.8, MCHC 32.7, RDW Std Deviation 55.8 H, RDW Coeff of [place] 16.3 H, Plt Count 239, MPV 9.5, Immature Gran % (Auto) 0.200, Neut % (Auto) 42.5 L, Lymph % (Auto) 45.5 H, [place] % (Auto) 9.5, Eos % (Auto) 1.5, Baso % (Auto) 0.8, Absolute Neuts (auto) 2.2, Absolute Lymphs (auto) 2.35, Nucleated RBC % 0 06/13/19 06:40: Sodium 139, Potassium 4.1, Chloride 104, Carbon Dioxide 27.0, Anion Gap 8, BUN 25 H, Creatinine 0.81, Estim Creat Clear Calc 40.24, Est GFR (MDRD) Af Amer 87, Est GFR (MDRD) Non-Af 72, BUN/Creatinine Ratio 31.0 H, Glucose 94, Calcium 8.9 Current Medications Amlodipine Besylate (Norvasc) 5 mg PO DAILY [facility] Last Admin: 06/13/19 08:49 Dose: 5 mg Documented by: Aspirin (Ecotrin) 81 mg PO Q48 [facility] Last Admin: 06/12/19 09:31 Dose: 81 mg Documented by: Calcium Carbonate (Os-Rodrigo 500) 500 mg PO DAILY [facility] Last Admin: 06/13/19 08:49 Dose: 500 mg Documented by: Digoxin (Lanoxin) 125 mcg PO DAILY [facility] Last Admin: 06/13/19 08:47 Dose: 125 mcg Documented by: Furosemide (Lasix) 10 mg PO DAILY [facility] Last Admin: 06/13/19 08:48 Dose: 10 mg Documented by: Glucagon () 1 mg IM .X1 PRN PRN Reason: Hypoglycemia Dextrose (Dextrose 10%-Water) 250 mls @ 999 mls/hr IV .Q16M PRN; Protocol PRN Reason: HYPOGLYCEMIA Isosorbide Mononitrate (Imdur) 60 mg PO QAM [facility] Last Admin: 06/13/19 08:46 Dose: 60 mg Documented by: Latanoprost (Xalatan Opthalmic) 1 drop OPHTHALMIC QHS [facility] Last Admin: 06/12/19 21:18 Dose: 1 drop Documented by: Metoprolol Succinate (Toprol Xl (Beta Jt)) 75 mg PO BID [facility] Last Admin: 06/13/19 08:49 Dose: 75 mg Documented by: Nitroglycerin (Nitrostat) 0.4 mg SUBLINGUAL Q5M PRN PRN Reason: Chest pain Last Admin: 06/12/19 04:12 Dose: 0.4 mg Documented by: Ondansetron HCl (Zofran) 4 mg IV Q8H PRN PRN PRN Reason: NAUSEA/VOMITING Pantoprazole Sodium (Protonix) 20 mg PO DAILY [facility] Last Admin: 06/13/19 08:49 Dose: 20 mg Documented by: Ramipril (Altace) 10 mg PO BID [facility] Last Admin: 06/13/19 08:46 Dose: 10 mg Documented by: Sodium Chloride () 10 - 40 ml IV UD PRN PRN Reason: SALINE FLUSH Last Admin: 06/12/19 12:11 Dose: 10 ml Documented by: STROKE Vital Signs/Narrative: Vital Signs Pulse 06/13/19 08:49 75 06/13/19 08:47 64 06/13/19 07:00 75 Medical Necessity - Tobacco Use Smoking Status: Never smoker Assessment/Plan All Active Problems (Last Reviewed 04/26/19 @ 09:34 by Chika Toth) Acute coronary syndrome (Acute) Chest pain (Acute) Paroxysmal atrial fibrillation with RVR (Acute) Atrial fibrillation with RVR (Acute) Hypokalemia (Acute) Sinusitis, acute (Acute) Productive cough (Acute) Atrial flutter (Acute) Sinus bradycardia (Acute) Chest pain (Resolved) Diarrhea (Resolved) Patient is an 83-year-old lady admitted with intractable chest pain 1. Chest pain -Admitted to the intensive care unit started on nitroglycerin drip in view of her persistent pain. Consult placed to patient's torch burner Dr. Wilkinson; subsequent management deferred 2. Chronic A. fib ?Not on systemic anticoagulation due to history of recurrent epistaxis 3. Chronic congestive heart failure with preserved ejection fraction ?Last echo obtained on 1118 demonstrated EF of 65% 4. Hypertension ~ blood pressure controlled, home medications continued with dose adjustment as needed 5. Coronary artery disease with previous CABG ?Patient is on recommended medications including aspirin metoprolol statin thera py as well as Imdur 6. Dyslipidemia ~With diet patient has reported allergies to statin therapy 7. Valvular heart disease -Known history of mitral valve regurgitation, followed by cardiology Code Visit Inpatient E&M: 83471 Subs Hosp L2
--- NOTE | 2019-06-13 11:05 | DCINST_ITS ---
- Discharge Diagnoses Current Active Problems: Current Active and Chronic Problems (Last Reviewed 04/26/19 @ 09:34 by Chika Toth) Acute coronary syndrome (Acute) Chest pain (Acute) CAD in [place] artery (Chronic) Atrial fibrillation (Chronic) You will use the following diet at home:: No restrictions Discharge Activity: Return to Normal Activity Instructions: CHEST PAIN, NonCardiac Allergies/Adverse Reactions: Allergies alendronate sodium [From Fosamax] Allergy (Verified 06/12/19 04:00) Unknown atorvastatin calcium [From Lipitor] Allergy (Verified 06/12/19 04:00) Unknown colestipol HCl [From Colestid] Allergy (Verified 06/12/19 04:00) Unknown cortisone acetate [From Cortone] Allergy (Verified 06/12/19 04:00) Unknown ezetimibe [From Zetia] Allergy (Verified 06/12/19 04:00) Unknown gabapentin Allergy (Verified 06/12/19 04:00) Unknown goserelin acetate [From Zoladex] Allergy (Verified 06/12/19 04:00) Unknown nabumetone Allergy (Verified 06/12/19 04:00) Other paroxetine HCl [From Paxil] Allergy (Verified 06/12/19 04:00) Unknown rosuvastatin calcium [From Crestor] Allergy (Verified 06/12/19 04:00) Unknown sertraline HCl [From Zoloft] Allergy (Verified 06/12/19 04:00) Unknown venlafaxine HCl [From Effexor] Allergy (Verified 06/12/19 04:00) Unknown hydrocodone Adverse Reaction (Intermediate, Verified 06/12/19 04:00) Unknown acetaminophen [From Vicodin] Adverse Reaction (Verified 06/12/19 04:00) KEEPS ME AWAKE carvedilol Adverse Reaction (Verified 06/12/19 04:00) Unknown hydrocodone bitartrate [From Vicodin] Adverse Reaction (Verified 06/12/19 04:00) KEEPS ME AWAKE venlafaxine Adverse Reaction (Severe, Uncoded 06/12/19 04:00) Unknown Medications to take at Discharge Calcium Carbonate [Calcium] 600 mg PO DAILY 03/28/15 [place]-3 Fatty Acids [Fish Oil] 1,000 mg PO DAILY 03/28/15 Nitroglycerin (INPATIENT USE) [Nitrostat] 0.4 mg SUBLINGUAL Q5M PRN #6 tab 05/23/17 esomeprazole magnesium 20 mg capsule,delayed release 20 mg PO QDAY PRN 09/05/17 aspirin 81 mg tablet,delayed release 81 mg PO Q OTHER DAY tab 04/13/18 amlodipine 5 mg tablet 5 mg PO QDAY #90 tab 09/30/18 latanoprost 0.005 % eye drops 1 drp OPHTHALMIC QHS #8 ml 09/30/18 ramipril 10 mg capsule 10 mg PO BID #180 cap 09/30/18 isosorbide mononitrate 60 mg tablet,extended release 24 hr 60 mg PO QAM #90 tab 01/04/19 metoprolol succinate 50 mg tablet,extended release 24 hr 50 mg PO BID #180 tab 04/13/19 digoxin 125 mcg (0.125 mg) tablet 125 mcg PO DAILY #30 tab 04/26/19 potassium 99 mg tablet 99 mg PO DAILY tab 04/26/19 furosemide 20 mg tablet 10 mg PO DAILY #45 tab 05/10/19 Primary Care Physician: Rachel Bernabe DO [Primary Care Provider] - Please follow up with your Primary Care Physician in: in 1 week Test Results: Test results from this visit will be discussed in further detail at your follow- up appointment, if applicable. Please Follow Up With: Shawn Wilkinson MD When: in 2-3 weeks Proposed Discharge Date: 06/13/19
--- NOTE | 2019-06-13 11:06 | PCM.DC.SUM ---
Discharge Date and Diagnosis - Problem List Patient Problems: Active and Suspected Problems (Last Reviewed 04/26/19 @ 09:34 by hCika Toth) Acute coronary syndrome (Acute) Chest pain (Acute) Date of Admission: 06/12/19 Date of Discharge: 06/13/19 - Primary Discharge Diagnosis Active and Suspected Problems (Last Reviewed 04/26/19 @ 09:34 by Chika Toth) Acute coronary syndrome (Acute) Chest pain (Acute) - Secondary Discharge Diagnosis Chronic Problems (Last Reviewed 04/26/19 @ 09:34 by Chika Toth) CAD in [place] artery (Chronic) Atrial fibrillation (Chronic) Essential hypertension (Chronic) Left carotid bruit (Chronic) Valvular heart disease (Chronic) Carotid artery disease (Chronic) Thoracic aortic aneurysm without rupture (Chronic) Atherosclerotic heart disease of [place] coronary artery without angina pectoris (Chronic) PRO to LAD, SVG to distal LCFX, SVG to RCA 2009; PTCA/Stent to SVG of OM2 11/13/11 Aortocoronary bypass status (Chronic ~2009) PRO to LAd, SVg to distal LCFX, SVG to RCA 2009 Chronic diastolic (congestive) heart failure (Chronic) Paroxysmal atrial fibrillation (Chronic) Presence of stent in coronary artery (Chronic ~11/13/11) PTCA/Stent to SVG of OM2 11/13/11 Hyperlipidemia (Chronic) Aortic insufficiency (Chronic) Mild Mitral valve regurgitation (Chronic) Aortic valve disorder (Chronic) Hospital Course and Treatment Imaging Results: Clinical Impression(s) from Imaging Studies Chest X-Ray 06/12/19 03:50 IMPRESSION: No acute findings. Electronically Signed: Wei Scott, at 4:07 EST Tel , Service support , Operations: None Summary of Care Provided: Patient is an 83-year-old lady admitted with intractable chest pain 1. Chest pain -Admitted to the intensive care unit started on nitroglycerin drip in view of her persistent pain. Consult placed to patient's prefitter Dr. Wilkinson; subsequent management deferred -06/13/2019: Case was discussed with Dr. Wilkinson was felt patient was stable for discharge. No adjustments were made to her current management with regards to medications. 2. Chronic A. fib ?Not on systemic anticoagulation due to history of recurrent epistaxis 3. Chronic congestive heart failure with preserved ejection fraction ?Last echo obtained on 1118 demonstrated EF of 65% 4. Hypertension ~ blood pressure controlled, home medications continued with dose adjustment as needed 5. Coronary artery disease with previous CABG ?Patient is on recommended medications including aspirin metoprolol statin therapy as well as Imdur 6. Dyslipidemia ~With diet patient has reported allergies to statin therapy 7. Valvular heart disease -Known history of mitral valve regurgitation, followed by cardiology Patient Problems: Active and Suspected Problems (Last Reviewed 04/26/19 @ 09:34 by Chika Toth) Acute coronary syndrome (Acute) Chest pain (Acute) Objective: GENERAL: cooperative HEENT: Atraumatic; EYES; Anicteric, Normal Conjunctiva NECK; supple, normal thyroid, RESPIRATORY: Diminished to auscultation CARDIOVASCULAR: Irregularly irregular, with a systolic murmur GI: soft, normoactive bowel sounds, : No Renal angle tenderness; EXTREMITIES: No edema, no clubbing, MUSCULOSKELETAL: no muscle waisting NEURO: Awake; no lateralizing signs. SKIN: No Rash - Physical Exam Vitals/I&O's: Vital Signs Temp Pulse Resp BP Pulse Ox 98.2 F 59 L 16 130/50 H 99 06/13/19 09:00 06/13/19 09:00 06/13/19 09:00 06/13/19 09:00 06/13/19 09:00 Oxygen Flow Rate (L/min) 2 Oxygen Delivery Method Room Air Weight: 49.3 kg Body Mass Index (BMI) 20.1 Intake and Output for Last 24 Hours 06/11/19 06/12/19 06/13/19 23:59 23:59 23:59 Intake Total 476.75 / 476.75 100 / 100 Output Total 550 / 550 Balance -73.25 / -73.25 100 / 100 Laboratory Results 06/12/19 12:00: Troponin I < 0.015 06/12/19 12:00: Digoxin 1.19 06/13/19 06:40: WBC 5.2, RBC 3.80 L, Hgb 11.7 L, Hct 35.8 L, MCV 94.2, MCH 30.8, MCHC 32.7, RDW Std Deviation 55.8 H, RDW Coeff of [place]ule[place] 16.3 H, Plt Count 239, MPV 9.5, Immature Gran % (Auto) 0.200, Neut % (Auto) 42.5 L, Lymph % (Auto) 45.5 H, [place] % (Auto) 9.5, Eos % (Auto) 1.5, Baso % (Auto) 0.8, Absolute Neuts (auto) 2.2, Absolute Lymphs (auto) 2.35, Nucleated RBC % 0 06/13/19 06:40: Sodium 139, Potassium 4.1, Chloride 104, Carbon Dioxide 27.0, Anion Gap 8, BUN 25 H, Creatinine 0.81, Estim Creat Clear Calc 40.24, Est GFR (MDRD) Af Amer 87, Est GFR (MDRD) Non-Af 72, BUN/Creatinine Ratio 31.0 H, Glucose 94, Calcium 8.9 Current Medications Amlodipine Besylate (Norvasc) 5 mg PO DAILY [facility] Last Admin: 06/13/19 08:49 Dose: 5 mg Documented by: Aspirin (Ecotrin) 81 mg PO Q48 [facility] Last Admin: 06/12/19 09:31 Dose: 81 mg Documented by: Calcium Carbonate (Os-Rodrigo 500) 500 mg PO DAILY [facility] Last Admin: 06/13/19 08:49 Dose: 500 mg Documented by: Digoxin (Lanoxin) 125 mcg PO DAILY [facility] Last Admin: 06/13/19 08:47 Dose: 125 mcg Documented by: Furosemide (Lasix) 10 mg PO DAILY [facility] Last Admin: 06/13/19 08:48 Dose: 10 mg Documented by: Glucagon () 1 mg IM .X1 PRN PRN Reason: Hypoglycemia Dextrose (Dextrose 10%-Water) 250 mls @ 999 mls/hr IV .Q16M PRN; Protocol PRN Reason: HYPOGLYCEMIA Isosorbide Mononitrate (Imdur) 60 mg PO QAM [facility] Last Admin: 06/13/19 08:46 Dose: 60 mg Documented by: Latanoprost (Xalatan Opthalmic) 1 drop OPHTHALMIC QHS [facility] Last Admin: 06/12/19 21:18 Dose: 1 drop Documented by: Metoprolol Succinate (Toprol Xl (Beta Jt)) 75 mg PO BID [facility] Last Admin: 06/13/19 08:49 Dose: 75 mg Documented by: Nitroglycerin (Nitrostat) 0.4 mg SUBLINGUAL Q5M PRN PRN Reason: Chest pain Last Admin: 06/12/19 04:12 Dose: 0.4 mg Documented by: Ondansetron HCl (Zofran) 4 mg IV Q8H PRN PRN PRN Reason: NAUSEA/VOMITING Pantoprazole Sodium (Protonix) 20 mg PO DAILY [facility] Last Admin: 06/13/19 08:49 Dose: 20 mg Documented by: Ramipril (Altace) 10 mg PO BID [facility] Last Admin: 06/13/19 08:46 Dose: 10 mg Documented by: Sodium Chloride () 10 - 40 ml IV UD PRN PRN Reason: SALINE FLUSH Last Admin: 06/12/19 12:11 Dose: 10 ml Documented by: Discharge Diet: No Restrictions Discharge Activity: Return to Normal Activity Home Medications: Medications to take at Discharge Calcium Carbonate [Calcium] 600 mg PO DAILY 03/28/15 [place]-3 Fatty Acids [Fish Oil] 1,000 mg PO DAILY 03/28/15 Nitroglycerin (INPATIENT USE) [Nitrostat] 0.4 mg SUBLINGUAL Q5M PRN #6 tab 05/23/17 esomeprazole magnesium 20 mg capsule,delayed release 20 mg PO QDAY PRN 09/05/17 aspirin 81 mg tablet,delayed release 81 mg PO Q OTHER DAY tab 04/13/18 amlodipine 5 mg tablet 5 mg PO QDAY #90 tab 09/30/18 latanoprost 0.005 % eye drops 1 drp OPHTHALMIC QHS #8 ml 09/30/18 ramipril 10 mg capsule 10 mg PO BID #180 cap 09/30/18 isosorbide mononitrate 60 mg tablet,extended release 24 hr 60 mg PO QAM #90 tab 01/04/19 metoprolol succinate 50 mg tablet,extended release 24 hr 50 mg PO BID #180 tab 04/13/19 digoxin 125 mcg (0.125 mg) tablet 125 mcg PO DAILY #30 tab 04/26/19 potassium 99 mg tablet 99 mg PO DAILY tab 04/26/19 furosemide 20 mg tablet 10 mg PO DAILY #45 tab 05/10/19 Primary Care Physician: Rachel Bernabe DO [Primary Care Provider] - Please follow up with your Primary Care Physician in: in 1 week Please Follow Up With: Shawn Wilkinson MD When: in 2-3 weeks Patient Instructions: CHEST PAIN, NonCardiac Disposition: Home Minutes spent on discharge:: 35 Patient Condition:: Stable Medical Necessity - Tobacco Use Smoking Status: Never smoker Meaningful Use Info Meaningful Use Diagnoses (Choose all that apply): None applicable Code Visit Inpatient E&M: 69302 Disch Hosp
--- NOTE | 2019-06-13 12:05 | PCM.PN.CARD ---
Subjectve: The patient was evaluated earlier this day. She denied any acute symptoms with respect to her palpitations or her chest discomfort. Objective: Vital Signs Temp Pulse Resp BP Pulse Ox 98.2 F 59 L 16 130/50 H 99 06/13/19 09:00 06/13/19 09:00 06/13/19 09:00 06/13/19 09:00 06/13/19 09:00 Oxygen Flow Rate (L/min) 2 Oxygen Delivery Method Room Air Weight: 108 lb 11.006 oz Body Mass Index (BMI) 20.1 Intake and Output for Last 24 Hours 06/11/19 06/12/19 06/13/19 23:59 23:59 23:59 Intake Total 476.75 / 476.75 750 / 750 Output Total 550 / 550 Balance -73.25 / -73.25 750 / 750 General: Awake, Alert, Oriented x 3, Cooperative, No Acute Distress HEENT: Atraumatic, Normocephalic, PERRL, EOMI, Sclera Non Icteric Oral: Moist Mucosa Neck: Supple, Good ROM, No JVD Lungs: Clear to auscultation Cardiovascular: Irregular Rhythm, Normal S1, Normal S2 Murmur Murmur: Grade 2/6, Soft, Mid Systolic, LLSB Abdomen: Bowel Sounds Present, Soft, Non Tender Extremities: No edema Psych/Mental Status: Appropriate 06/12/19 12:00: Troponin I < 0.015 06/12/19 12:00: Digoxin 1.19 06/13/19 06:40: WBC 5.2, RBC 3.80 L, Hgb 11.7 L, Hct 35.8 L, MCV 94.2, MCH 30.8, MCHC 32.7, Plt Count 239, MPV 9.5, Immature Gran % (Auto) 0.200, Neut % (Auto) 42.5 L, Lymph % (Auto) 45.5 H, [place] % (Auto) 9.5, Eos % (Auto) 1.5, Baso % (Auto) 0.8, Absolute Neuts (auto) 2.2, Nucleated RBC % 0 06/13/19 06:40: Sodium 139, Potassium 4.1, Chloride 104, Carbon Dioxide 27.0, Anion Gap 8, BUN 25 H, Creatinine 0.81, Est GFR (MDRD) Af Amer 87, Est GFR (MDRD) Non-Af 72, BUN/Creatinine Ratio 31.0 H, Glucose 94, Calcium 8.9 Rhythm: Atrial fibrillation Echocardiogram: Interpretation Summary Left ventricular systolic function is normal. The estimated ejection fraction is 65 %. The left atrium is mildly enlarged. The right atrium is mildly enlarged. Mild diffuse mitral valve thickening. Mild focal mitral valve calcification, bileaflet. Moderate (2+) mitral valve insufficiency. Moderate (2+) tricuspid valve insufficiency. Aortic sclerosis, no stenosis. Mild (1+) aortic valve insufficiency. Trivial pulmonic valve insufficiency. Right ventricular systolic pressure estimated to be 35 mmHg. Unable to assess diastolic dysfunction. Medical Necessity - Tobacco Use Smoking Status: Never smoker Assessment/Plan 1. Chest pain The patient was admitted because of concerns of chest discomfort. She appears to be having concerns of a variety of chest discomforts. Her discomforts have been been in various locations and have waxed and waned over time. They have been more chronic than acute. They also can be exacerbated by deep inspiration as well as by palpation. Her cardiac evaluation thus far has been negative based upon her cardiac enzymes. Her ECGs have demonstrated no new acute ECG changes. Her chest x-ray demonstrated no acute cardiopulmonary pathology per radiology. Her transthoracic echocardiogram is as noted. She is continuing to be monitored. She is continuing medical management as deemed appropriate. At the moment there are no immediate plans for additional noninvasive or invasive studies. 2. CAD status post PCI status post CABG She has a history of extensive CAD status post revascularization therapies as noted. Her most recent noninvasive and invasive studies are as noted. She does have CAD that is deemed not amenable to revascularization therapy. At the moment her cardiac enzymes remain negative. As noted above her ECG demonstrated no new acute changes. She will continue medical management at this time. 3. Atrial fibrillation She has persistent/permanent atrial fibrillation. Based upon her home medication list she was on beta-danica therapy and digitalis therapy. Her medications will be adjusted and her levels checked. She will also continue anticoagulant therapy as deemed appropriate. 4. Valvular heart disease She does have a history of valvular heart disease as previously noted on her diagnostic studies. Her echocardiographic findings are as noted. She will continue to be followed. 5. Thoracic aortic aneurysm She has had dilatation of her aortic root in the past. This is been followed noninvasively. Based upon her echocardiographic findings her thoracic aortic root size appeared to be within normal range. 6. Hyperlipidemia She will continue medical therapy as deemed appropriate. However there have been concerns of her being intolerant to lipid-lowering medications. 7. Hypertension Her blood pressure will be followed and her medications adjusted accordingly. 8. Carotid artery disease She has a history of carotid artery disease. This can be reassessed as deemed appropriate. Comment: The patient's case was discussed and reviewed with the patient and Dr. Breaux. This note was generated using a voice recognition system and there may be incorrect words, spelling or punctuation that were not noted when reviewing the office note prior to saving.
== END 2019-06-13 13:02 | disposition home or self-care (01) ==
LOC: ED 04:07 → PCU 05:16 → ICU 07:24 → PCU 06-14 06:31
PROVIDERS: Internal Medicine Cardiovascular Disease; Admitting Provider Student in an Organized Health Care Education/Training Program; Emergency Provider Emergency Medicine; PCP Family Medicine; Visit Provider Internal Medicine
DX: I24.9 Acute ischemic heart disease, unspecified (principal); I25.10 Atherosclerotic heart disease of native coronary artery without angina pectoris; I11.0 Hypertensive heart disease with heart failure; I50.32 Chronic diastolic (congestive) heart failure; I08.3 Combined rheumatic disorders of mitral, aortic and tricuspid valves; I48.0 Paroxysmal atrial fibrillation; K21.9 Gastro-esophageal reflux disease without esophagitis; I73.9 Peripheral vascular disease, unspecified; R94.31 Abnormal electrocardiogram [ECG] [EKG]; E78.2 Mixed hyperlipidemia; I48.21 Permanent atrial fibrillation; Z95.5 Presence of coronary angioplasty implant and graft; Z79.899 Other long term (current) drug therapy; Z79.82 Long term (current) use of aspirin; Z95.1 Presence of aortocoronary bypass graft; Z79.01 Long term (current) use of anticoagulants
CPT/HCPCS: 36415; 71045; 80048; 80162; 84484; 85025; 93005; 93306; 96365; 96366; 96372; 97162; 97166; 99218; 99285; J7030; A4216; G0378

== ENCOUNTER → 2019-07-12 07:42 | Outpatient (CLI) | payer MEDICARE, SELFPAY ==
[2019-04-26 09:29] VITALS: BMI 20.2
[2019-06-12 06:19] VITALS: BMI 20.1
--- NOTE | 2019-07-12 07:44 | BI_ITS ---
MAMMOGRAPHY - BILATERAL SCREENING REASON FOR EXAM: Female, 83 years old. Routine annual screening examination. PERTINENT HISTORY: Non-contributory. TECHNIQUE: Digital bilateral breast alysha (3D mammographic acquisition) in the CC and MLO projections. 2-D mediolateral oblique (MLO) and craniocaudad (CC) views of both breasts were obtained. CAD: Full Field Digital Mammography with Computer Added Detection was performed. COMPARISON: Comparison is made with prior study dated July 09, 2018 and June 30, 2017. FINDINGS: Breast Composition: There are scattered areas of fibroglandular density. There are no dominant masses or suspicious calcifications. No other significant abnormalities are identified. There has been no significant change since the prior study. BI/SCREEN MAMM (CAD) W/ALYSHA BILAT IMPRESSION: Stable bilateral screening mammogram. Yearly follow-up mammogram recommended. (A) ASSESSMENT CATEGORY: BIRADS Category 1: Negative. A letter regarding these results will be sent to the patient by the facility within 30 days. Approximately 10% of breast cancers are not detected by mammography. A normal mammogram should not delay biopsy of a clinically suspicious abnormality. [id number] Electronically Signed: Mariusz Alarcon, at 9:23 EDT , Service support ,
== END ==
PROVIDERS: Family Provider Family Medicine; PCP Family Medicine; Referring Provider Family Medicine; Visit Provider Family Medicine
DX: Z12.31 Encounter for screening mammogram for malignant neoplasm of breast (principal)
CPT/HCPCS: 77063; 77067

== ENCOUNTER → 2019-10-04 13:16 | Outpatient (CLI) | payer MEDICARE, SELFPAY ==
[2019-06-12 06:19] VITALS: BMI 20.1
--- NOTE | 2019-10-04 10:30 | TISS_PTH ---
PATIENT: LANNY DIALLO I LOC: [facility] U#:[id number] AGE/SX: 89/F ROOM: RE10/04/[address]: Dr. Rachel Bernabe DO : 1935 BED: DIS: SPEC #: [id number] RECD: 10/04/19 15:04 STATUS: JENNIE EBNNY #: [id number] JOSHUA: 10/04/19 10:[address]: Rachel Bernabe DEPT: SURGICAL PATHOLOGY RECD BY: Pablo Horowitz Tissues: A - Skin of leg, NOS B - Skin of leg, NOS Skin, NOS TISSUE SURGICALLY REMOVED Procedures: Surgery Specimen Level IV HEADER OPERATION: Punch biopsy PRE-OP DIAGNOSIS: Rule out SCC right lower pires; right medial calf, rule out vasculitis vs venous stasis dermatitis TISSUE SUBMITTED: A - Right lower pires, rule out SCC, B - Right medial lower calf, rule out vasculitis vs venous stasis dermatitis MICROSCOPIC DIAGNOSIS A. Right lower pires lesion, punch biopsy: A piece of skin with underlying tissue with focal suprabasal vesicle formation and dermal granulation tissue reaction. Negative for malignancy. B. Right medial lower calf lesion, biopsy: Suggestive of lentigo. Solar elastosis. Negative for malignancy. See comment. SJ:rg 10/06/19 COMMENT B. Changes consistent with vasculitis or stasis dermatitis are not seen. Correlation with clinical findings and appropriate follow up are necessary, excision of the lesions are suggested, if clinically indicated. Case has been reviewed in consultation with Dr. Lopez who concurs with the above diagnosis. IDC:AM MICROSCOPIC DESCRIPTION Slides are reviewed. GROSS DESCRIPTION A - Received in fixative is one container labeled with the patient's name and designated right lower pires. The specimen consists of one irregular fragment of light zee soft tissue that measures 0.5 x 0.3 x 0.1 cm. The specimen is totally submitted in one cassette. B - Received in fixative is one container labeled with the patient's name and designated right medial lower calf. The specimen consists of one irregular fragment of light zee soft tissue that measures 0.3 x 0.3 x 0.1 cm. The specimen is totally submitted in one cassette. / AM:leonardo 10/05/19 TC:5 CPT: 44638 x2
== END ==
PROVIDERS: PCP Family Medicine; Visit Provider Family Medicine
DX: L98.9 Disorder of the skin and subcutaneous tissue, unspecified (principal)
CPT/HCPCS: 88305

== ENCOUNTER → 2019-11-04 14:27 | Outpatient (CLI) | payer MEDICARE, SELFPAY ==
[2019-11-04 10:00] VITALS: BMI 20.1
== END ==
PROVIDERS: PCP Family Medicine; Referring Provider Physician Assistant; Visit Provider Physician Assistant
DX: L02.91 Cutaneous abscess, unspecified (principal)
CPT/HCPCS: 87070; 87205

== ENCOUNTER 2019-12-24 19:36 | Emergency (ER) | payer MEDICARE, SELFPAY ==
[2019-11-04 10:00] VITALS: BMI 20.1
[2019-12-24 19:36] VITALS: BP 144/48; PULSE 88; RESP 15; TEMP 36.4; O2SAT 99; BMI 19.3
--- NOTE | 2019-12-24 19:54 | ED.VIS.GEN ---
History of Present Illness Chief Complaint: Laceration Informant: Patient Onset: Today Narrative: Was mowing the lawn when she felt something against her left lateral leg. She looked down she was bleeding. She states this continued to ooze blood over the past 3-1/2 hours. States that she was on blood thinners until yesterday. Past Medical History - Allergies and Home Meds Allergies/Adverse Reactions: Allergies alendronate sodium [From Fosamax] Allergy (Verified 11/04/19 10:00) Unknown atorvastatin calcium [From Lipitor] Allergy (Verified 11/04/19 10:00) Unknown colestipol HCl [From Colestid] Allergy (Verified 11/04/19 10:00) Unknown cortisone acetate [From Cortone] Allergy (Verified 11/04/19 10:00) Unknown ezetimibe [From Zetia] Allergy (Verified 11/04/19 10:00) Unknown gabapentin Allergy (Verified 11/04/19 10:00) Unknown goserelin acetate [From Zoladex] Allergy (Verified 11/04/19 10:00) Unknown nabumetone Allergy (Verified 11/04/19 10:00) Other paroxetine HCl [From Paxil] Allergy (Verified 11/04/19 10:00) Unknown rosuvastatin calcium [From Crestor] Allergy (Verified 11/04/19 10:00) Unknown sertraline HCl [From Zoloft] Allergy (Verified 11/04/19 10:00) Unknown venlafaxine HCl [From Effexor] Allergy (Verified 11/04/19 10:00) Unknown hydrocodone Adverse Reaction (Intermediate, Verified 11/04/19 10:00) Unknown acetaminophen [From Vicodin] Adverse Reaction (Verified 11/04/19 10:00) KEEPS ME AWAKE carvedilol Adverse Reaction (Verified 11/04/19 10:00) Unknown hydrocodone bitartrate [From Vicodin] Adverse Reaction (Verified 11/04/19 10:00) KEEPS ME AWAKE venlafaxine Adverse Reaction (Severe, Uncoded 11/04/19 10:00) Unknown Primary Care Physician: Rachel Bernabe DO [Primary Care Provider] - Surgical History: angioplasty, coronary bypass surgery - Coronary artery bypass grafting was done in 2011. She also had a coronary stent the following year., total knee arthroplasty - the, - Smoking Status: Never smoker - Family History Maternal Family History: Family History (Last Reviewed 11/04/19 @ 10:00 by Velasquez Lara) Brother CAD (coronary artery disease) Diabetes Myocardial infarction Father CAD (coronary artery disease) Other Family history of premature coronary heart disease Family History: Reports: Heart Disease Paternal Family History: Family History (Last Reviewed 11/04/19 @ 10:00 by Velasquez Lara) Brother CAD (coronary artery disease) Diabetes Myocardial infarction Father CAD (coronary artery disease) Other Family history of premature coronary heart disease Family History: Reports: Heart Disease Review of Systems General: Denies: Chills, Fever, Sweats Eyes: Denies: Visual changes - bilaterally, Diplopia ENT: Denies: Rhinorrhea, Sore throat Cardiovascular: Denies: Chest pain, Palpitations Respiratory: Denies: Dyspnea, Cough, Dyspnea on exertion Gastrointestinal: Denies: Abdominal pain, Nausea, Vomiting, Diarrhea, Melena, Hematochezia Genitourinary: Denies: Dysuria, Hematuria, Frequency Musculoskeletal: Denies: Back pain, Extremity Pain Skin: Reports: Wounds. Denies: Rash Neurological: Denies: Headache, Weakness, Numbness Physical Exam Vital Signs/Narrative: Vital Signs Temp Pulse Resp BP Pulse Ox 12/24/19 19:36 97.6 F L 88 15 144/48 H 99 Inital Vital Signs reviewed: Yes General: Well nourished, Well developed, No Acute Distress Head: Normocephalic, Atraumatic Eyes: Perrl, EOMI ENT: Moist mucous membranes, No rhinorrhea Neck: Supple, Nontender Cardiovascular: Regular rate, Regular rhythm, No murmurs Respiratory: No distress, CTA bilaterally, Chest nontender Abdomen: Soft, Nontender, Nondistended, Normal bowel sounds Back: Nontender, Normal Inspection Extremities: Nontender, No edema Skin: Normal color, No rash, Trauma - There is about 1/2 cm superficial skin avulsion to the mid lateral left leg. This has very mild venous oozing. It appears clean. Neurological: Alert, Oriented x3, Cranial nerves II-XII grossly intact, Normal Strength, Normal Sensation Psychological: Normal affect, Normal Mood Diagnostic/Tx/Re-eval - Medical Decision Making Foam was applied to the wound and it was dressed. Patient will be instructed to leave this on for 48 hours and then she may remove it in the shower doing local wound care after that. ED Disposition - Plan for ED Patient: Disposition: Home or Assisted Living Diagnosis: Avulsion of skin of left lower leg Instructions: ED AVULSION LACERATION Referrals: Rachel Bernabe DO [Primary Care Provider] - As Needed Additional Instructions: I would recommend leaving this dressing on for 48 hours. Then take off the dressing in the shower. You should be able to do just local wound care after that. The dressing we are placing helps the body form a clot.
[2019-12-24] MEDS: Gelfoam 12-7 MM Sponge (1) 1 EACH TP (20:03)
== END 2019-12-24 20:13 | disposition home or self-care (01) ==
LOC: ED 20:09
PROVIDERS: Emergency Provider Emergency Medicine; PCP Family Medicine
DX: S81.802A Unspecified open wound, left lower leg, initial encounter (principal); W45.8XXA Other foreign body or object entering through skin, initial encounter; Y93.H9 Activity, other involving exterior property and land maintenance, building and construction; Y92.096 Garden or yard of other non-institutional residence as the place of occurrence of the external cause; Y99.8 Other external cause status; Z79.01 Long term (current) use of anticoagulants; Z82.49 Family history of ischemic heart disease and other diseases of the circulatory system; Z88.5 Allergy status to narcotic agent; Z95.1 Presence of aortocoronary bypass graft; Z95.5 Presence of coronary angioplasty implant and graft
CPT/HCPCS: 99282

== ENCOUNTER → 2020-02-03 08:31 | Outpatient (CLI) | payer MEDICARE, SELFPAY ==
[2020-02-03 12:19] LABS: Absolute Lymphocyte Count 2.17 X10^3/uL (0.83-4.51); Absolute Neutrophil Count 4.2 X10^3/uL (2.0-7.7); Basophil# 0.04 X10^3/uL; Basophil% 0.6 % (0-1); Eosinophil# 0.21 X10^3/uL; Eosinophils% 2.9 % (0-5); Hematocrit 37.6 % (37-47); Hemoglobin 12.1 g/dL (12.0-15.0); Lymphocyte # 2.17 X10^3/ul (4.0); Mean Corp Hgb Conc 32.2 g/dL (32-36); Mean Corpuscular Hgb 32.2 pg (27.0-32.0); Monocyte# 0.58 X10^3/uL; NRBC Flagged by Analyzer 0.3 % (0-5); Neutrophil # 4.21 X10^3/uL (2.7-7.7); Neutrophil % 58.2 % (47-70); POSITIVE MORPHOLOGY YES; Platelet Count 278 K/mm3 (150-450); RBC Distribution Width CV 14.9 % (11.6-14.6); RBC Distribution Width SD 54.6 fl (35.1-43.9); Red Blood Count 3.76 M/mm3 (4.2-5.4); White Blood Count 7.2 K/mm3 (4.4-11.0)
[2020-02-03 12:20] LABS: Differential Indicated SCAN CRITERIA MET
[2020-02-03 12:42] LABS: Differential Comment SCANNED
[2020-02-03 12:45] LABS: ALB/GLOB Ratio 1.2 RATIO (0.9-2.4); AST(SGOT) 28 U/L (15-37); Alanine Aminotransfer ALT/SGPT 25 U/L (13-56); Albumin, Serum 4.2 g/dL (3.2-5.0); Alkaline Phosphatase 52 U/L (45-117); Anion Gap 7 (5-15); BUN 17 mg/dL (7-18); Calcium,Total 9.4 mg/dL (8.5-10.1); Chloride 101 mmol/L (98-107); Creatinine, Serum 0.94 mg/dL (0.55-1.02); EST Glomerular Filtration Rate 60 mL/min (>60); Est Glom Filt Rate - Afr Amer 72 mL/min (>60); Globulin 3.4 g/dL (2.2-4.2); Glucose 90 mg/dL (74-106); Protein, Total 7.6 g/dL (6.4-8.2); Sodium Level 136 mmol/L (136-145)
== END ==
PROVIDERS: PCP Family Medicine; Visit Provider Family Medicine
DX: E87.6 Hypokalemia (principal); D64.9 Anemia, unspecified
CPT/HCPCS: 36415; 80053; 85025

== ENCOUNTER 2020-04-27 08:25 | Observation (INO) | payer MEDICARE, SELFPAY ==
[2020-04-27] VITALS (13 sets, daily range): BP systolic 132–159; BP diastolic 61–133; PULSE 61–78; RESP 16–23; TEMP 36–36.7; O2SAT 92–100; BMI 19.3; BMI 20.1
--- NOTE | 2020-04-27 08:32 | EKG12_ITS ---
Test Reason : Blood Pressure : / mmHG Vent. Rate : 057 BPM Atrial Rate : 087 BPM P-R Int : 000 ms QRS Dur : 076 ms QT Int : 410 ms P-R-T Axes : 000 064 253 degrees QTc Int : [address] & T wave abnormality, consider anterior ischemia Abnormal ECG When compared with ECG of 13-JUN-2019 04:38, No significant change was found Confirmed by COLIN BOYCE, RADHA ([id number]), managing editor REEMA MORATAYA ([id number]) on 05/01/2020 11:16:52 AM Referred By: PENELOPE Confirmed By:KEELEY SHAW MD
[2020-04-27] MEDS: Aspirin 81 MG TAB.CHEW 324 MG PO (08:40)
[2020-04-27 08:48] LABS: Absolute Lymphocyte Count 1.55 X10^3/uL (0.83-4.51); Absolute Neutrophil Count 6.1 X10^3/uL (2.0-7.7); Basophil# 0.04 X10^3/uL; Basophil% 0.5 % (0-1); Eosinophil# 0.06 X10^3/uL; Eosinophils% 0.7 % (0-5); Hematocrit 35.8 % (37-47); Lymphocyte # 1.55 X10^3/ul (4.0); Lymphocyte % 18.3 % (19-41); Mean Corp Hgb Conc 33.5 g/dL (32-36); Mean Corpuscular Hgb 32.3 pg (27.0-32.0); Mean Corpuscular Volume 96.5 fL (81-99); Mean Platelet Vol. 9.2 fl (6.2-12.0); Monocyte# 0.73 X10^3/uL; Monocyte% 8.6 % (0-10); NRBC Flagged by Analyzer 0.2 % (0-5); Neutrophil # 6.06 X10^3/uL (2.7-7.7); Neutrophil % 71.7 % (47-70); Platelet Count 283 K/mm3 (150-450); RBC Distribution Width CV 15.7 % (11.6-14.6); RBC Distribution Width SD 54.4 fl (35.1-43.9); Red Blood Count 3.71 M/mm3 (4.2-5.4); White Blood Count 8.5 K/mm3 (4.4-11.0)
--- NOTE | 2020-04-27 08:59 | ED.VIS.CHEST ---
History of Present Illness Chief Complaint: Chest Pain Informant: Patient Narrative: Patient presenting for evaluation secondary to chest pain. Patient has an underlying history of atrial fibrillation and cardiovascular disease status post triple bypass. Patient states that recently she has been dealing with some peripheral edema that is worsening. Patient states that since yesterday she has been dealing with chest pain. This is exertional, and is associated with exertional dyspnea. Patient states that it has not been associated with recent illness such as fever cough nausea vomiting or diarrhea. Pain is a heaviness tightness type feeling. Review of systems otherwise negative. Past Medical History - Allergies and Home Meds Allergies/Adverse Reactions: Allergies alendronate sodium [From Fosamax] Allergy (Verified 11/04/19 10:00) Unknown atorvastatin calcium [From Lipitor] Allergy (Verified 11/04/19 10:00) Unknown colestipol HCl [From Colestid] Allergy (Verified 11/04/19 10:00) Unknown cortisone acetate [From Cortone] Allergy (Verified 11/04/19 10:00) Unknown ezetimibe [From Zetia] Allergy (Verified 11/04/19 10:00) Unknown gabapentin Allergy (Verified 11/04/19 10:00) Unknown goserelin acetate [From Zoladex] Allergy (Verified 11/04/19 10:00) Unknown nabumetone Allergy (Verified 11/04/19 10:00) Other paroxetine HCl [From Paxil] Allergy (Verified 11/04/19 10:00) Unknown rosuvastatin calcium [From Crestor] Allergy (Verified 11/04/19 10:00) Unknown sertraline HCl [From Zoloft] Allergy (Verified 11/04/19 10:00) Unknown venlafaxine HCl [From Effexor] Allergy (Verified 11/04/19 10:00) Unknown hydrocodone Adverse Reaction (Intermediate, Verified 11/04/19 10:00) Unknown acetaminophen [From Vicodin] Adverse Reaction (Verified 11/04/19 10:00) KEEPS ME AWAKE carvedilol Adverse Reaction (Verified 11/04/19 10:00) Unknown hydrocodone bitartrate [From Vicodin] Adverse Reaction (Verified 11/04/19 10:00) KEEPS ME AWAKE venlafaxine Adverse Reaction (Severe, Uncoded 11/04/19 10:00) Unknown Primary Care Physician: Rachel Bernabe DO [Primary Care Provider] - Prior records reviewed: Yes Past Medical History: - - A. fib, hypertension, coronary artery disease, congestive heart failure Surgical History: angioplasty, coronary bypass surgery - Coronary artery bypass grafting was done in 2011. She also had a coronary stent the following year., total knee arthroplasty - the, - Smoking Status: Never smoker - Family History Maternal Family History: Family History (Last Reviewed 11/04/19 @ 10:00 by Velasquez Lara) Brother CAD (coronary artery disease) Diabetes Myocardial infarction Father CAD (coronary artery disease) Other Family history of premature coronary heart disease Family History: Reports: Heart Disease Paternal Family History: Family History (Last Reviewed 11/04/19 @ 10:00 by Velasquez Lara) Brother CAD (coronary artery disease) Diabetes Myocardial infarction Father CAD (coronary artery disease) Other Family history of premature coronary heart disease Family History: Reports: Heart Disease Review of Systems All systems negative except as indicated General: Denies: Chills, Fever, Sweats Eyes: Denies: Visual changes - bilaterally, Diplopia ENT: Denies: Rhinorrhea, Sore throat Cardiovascular: Reports: Chest pain Respiratory: Reports: Dyspnea Gastrointestinal: Denies: Abdominal pain, Nausea, Vomiting, Diarrhea, Melena, Hematochezia Genitourinary: Denies: Dysuria, Hematuria, Frequency Musculoskeletal: Reports: Swelling Skin: Denies: Rash, Wounds Neurological: Denies: Headache, Weakness, Numbness Physical Exam Vital Signs/Narrative: Vital Signs Temp Pulse Resp BP Pulse Ox 04/27/20 08:25 96.8 F L 64 16 148/97 H 100 General: Well nourished, Well developed, No Acute Distress Head: Normocephalic, Atraumatic Eyes: Perrl, EOMI ENT: Moist mucous membranes, No rhinorrhea Neck: Supple, Nontender Cardiovascular: Regular rate, No murmurs, Irregular, Murmur Respiratory: No distress, CTA bilaterally, Chest nontender Abdomen: Soft, Nontender, Nondistended, Normal bowel sounds Back: Nontender, Normal Inspection Extremities: Nontender, Edema - 1+ bilaterally symmetric lower extremity edema Skin: Normal color, No rash Neurological: Alert, Oriented x3, Cranial nerves II-XII grossly intact, Normal Strength, Normal Sensation Psychological: Normal affect, Normal Mood Diagnostic/Tx/Re-eval Chest X-Ray - ED: 2 View, Read by ED Physician, Cardiomegaly, CHF - EKG Initial EKG Interpretation: - - Atrial fibrillation with a controlled ventricular rate of 66. There are anterolateral ST depressions noted with some T wave inversions inferiorly that appear to be present on prior EKG from May of last year. Follow-up EKG Interpretation: - - Continued atrial fibrillation with a controlled ventricular rate of 65. Continued inferior and lateral ST changes that are unchanged and not exaggerated from prior EKG - Medical Decision Making Patient presented for evaluation secondary to chest pain. Patient had very concerning story and has a underlying history of coronary artery disease. Work-up was obtained. EKG does not show acute changes from prior EKG. Troponin negative. Chest x-ray two-view by my personal review shows some increased lung markings and pleural effusions concerning for some CHF. Patient had a repeat episode of chest pain, subsequent EKG does not show any evolution. Patient's heart score is 8. I believe that she requires admission for cardiac rule out ED Disposition - Plan for ED Patient: Disposition: Acute Care Hospital [facility] Diagnosis: Chest pain
[2020-04-27 09:06] LABS: Anion Gap 5 (5-15); BUN 13 mg/dL (7-18); BUN/Creat Ratio 15.3 RATIO (10-20); Calcium,Total 9.1 mg/dL (8.5-10.1); Chloride 107 mmol/L (98-107); Creatinine, Serum 0.85 mg/dL (0.55-1.02); EST Glomerular Filtration Rate 67 mL/min (>60); Est Glom Filt Rate - Afr Amer 82 mL/min (>60); Estimated Creatinine Clearance 39.11 ml/min; Glucose 145 mg/dL (74-106); Potassium 3.5 mmol/L (3.5-5.1); Sodium Level 139 mmol/L (136-145)
[2020-04-27] MEDS: Nitroglycerin SL (ED/IMG/CATH) 0.4 MG TABLET SUBLINGUAL (09:06)
--- NOTE | 2020-04-27 09:08 | NURSING ---
2nd EKG obtained for episode of CP, pt states I didn't have any until I took that aspirin. Nitro given, will monitor for effect.
--- NOTE | 2020-04-27 09:10 | RAD_ITS ---
STUDY: X-RAY CHEST REASON FOR EXAM: Female, 84 years old. Chest pain, swelling in legs and sob. TECHNIQUE: AP and lateral views of the chest. COMPARISON: Comparison is made with prior examination dated 06/12/2019. FINDINGS: EKG electrodes are seen. There now is evidence of small bilateral pleural effusions with mild degree of increased markings at the lung bases suggestive of bibasilar atelectasis. Sternal cerclage wires and vascular clips are present from a prior sternotomy and coronary artery bypass graft procedure (CABG). Normal mediastinum and alexus. Normal visualized pulmonary arteries. There is atherosclerotic calcification of the aortic arch with tortuosity. Normal visualized thoracic spine. Prior right total shoulder replacement. There is no demonstrated abnormality of the visualized soft tissue structures of the upper abdomen. RAD/Chest PA and Lateral IMPRESSION: Small bilateral pleural effusions with mild increased markings at the lung bases suggestive of bibasilar atelectasis. Electronically Signed: Mariusz Alarcon, at 9:32 EST , Service support ,
--- NOTE | 2020-04-27 10:11 | HP.PCM_ITS ---
Problem List (1) Chest pain Status: Acute (2) CAD in [place] artery Status: Chronic (3) Atrial fibrillation Status: Chronic Qualifiers: Atrial fibrillation type: permanent Qualified Code(s): I48.21 - Permanent atrial fibrillation (4) Essential hypertension Status: Chronic (5) Paroxysmal atrial fibrillation with RVR Status: Acute (6) Atrial fibrillation with RVR Status: Acute (7) Hypokalemia Status: Acute (8) Sinusitis, acute Status: Acute Qualifiers: Sinusitis location: pansinusitis Recurrence: non-recurrent Qualified Code(s): J01.40 - Acute pansinusitis, unspecified (9) Left carotid bruit Status: Chronic (10) Productive cough Status: Acute (11) Valvular heart disease Status: Chronic (12) Carotid artery disease Status: Chronic Qualifiers: Carotid artery disease type: stenosis Laterality: bilateral Qualified Code(s): I65.23 - Occlusion and stenosis of bilateral carotid arteries (13) Thoracic aortic aneurysm without rupture Status: Chronic (14) Atherosclerotic heart disease of [place] coronary artery without angina pectoris Status: Chronic Qualifiers: [place] vs. transplanted heart: [place] heart Qualified Code(s): I25.10 - Atherosclerotic heart disease of [place] coronary artery without angina pectoris Comment: PRO to LAD, SVG to distal LCFX, SVG to RCA 2009; PTCA/Stent to SVG of [facility] 11/13/11 (15) Aortocoronary bypass status Status: Chronic Comment: PRO to LAd, SVg to distal LCFX, SVG to RCA 2009 (16) Chronic diastolic (congestive) heart failure Status: Chronic (17) Paroxysmal atrial fibrillation Status: Chronic (18) Presence of stent in coronary artery Status: Chronic Comment: PTCA/Stent to SVG of [facility] 11/13/11 (19) Hyperlipidemia Status: Chronic Qualifiers: Hyperlipidemia type: mixed hyperlipidemia Qualified Code(s): E78.2 - Mixed hyperlipidemia (20) Atrial flutter Status: Acute (21) Sinus bradycardia Status: Acute (22) Aortic insufficiency Status: Chronic Comment: Mild (23) Mitral valve regurgitation Status: Chronic (24) Aortic valve disorder Status: Chronic (25) Acute on chronic diastolic heart failure Status: Chronic History of Present Illness Date of Admission: 04/27/20 Chief Complaint: Shortness of breath for few days The patient is a 84 year old F with history of coronary artery status post CABG and valvular heart disease came to ED with shortness of breath, chest tightness and leg swelling for few days. She has exertional dyspnea, getting short of breath on return from her mailbox, PND and orthopnea for 2 to 3 days. She also gained weight about 5 pounds in the last 3 to 4 weeks. She has chest tightness, midsternal with sometimes radiation to left arm but denies any relation with exertion or at rest. No associated dizziness, syncope, diaphoresis. In ER, vitals were acceptable limit. Respiratory rate 18-23 on pulse ox 95% room air. Twelve-lead EKG shows chronic A. fib and nonspecific ST-T changes in anterolateral leads similar to previous EKG. First troponin negative. She had aspirin 324 mg in ED. Past Medical History Past Medical History (Chronic Problems): Chronic Problems (Last Reviewed 11/04/19 @ 10:00 by Velasquez Lara) CAD in [place] artery (Chronic) Atrial fibrillation (Chronic) Acute on chronic diastolic heart failure (Chronic) Essential hypertension (Chronic) Left carotid bruit (Chronic) Valvular heart disease (Chronic) Carotid artery disease (Chronic) Thoracic aortic aneurysm without rupture (Chronic) Atherosclerotic heart disease of [place] coronary artery without angina pectoris (Chronic) PRO to LAD, SVG to distal LCFX, SVG to RCA 2009; PTCA/Stent to SVG of [facility] 11/13/11 Aortocoronary bypass status (Chronic ~2009) PRO to LAd, SVg to distal LCFX, SVG to RCA 2009 Chronic diastolic (congestive) heart failure (Chronic) Paroxysmal atrial fibrillation (Chronic) Presence of stent in coronary artery (Chronic ~11/13/11) PTCA/Stent to SVG of [facility] 11/13/11 Hyperlipidemia (Chronic) Aortic insufficiency (Chronic) Mild Mitral valve regurgitation (Chronic) Aortic valve disorder (Chronic) Medical History: Medical History (Last Reviewed 11/04/19 @ 10:00 by Velasquez Lara) Essential hypertension (Chronic) I10 Atherosclerotic heart disease of [place] coronary artery without angina pectoris (Chronic) I25.10 PRO to LAD, SVG to distal LCFX, SVG to RCA 2009; PTCA/Stent to SVG of [facility] 11/13/11 Chronic diastolic (congestive) heart failure (Chronic) I50.32 Paroxysmal atrial fibrillation (Chronic) I48.0 Hyperlipidemia (Chronic) E78.5 Atrial flutter (Acute) I48.92 Sinus bradycardia (Acute) R00.1 Aortic insufficiency (Chronic) I35.1 Mild Mitral valve regurgitation (Chronic) I34.0 Aortic valve disorder (Chronic) I35.9 GERD (gastroesophageal reflux disease) K21.9 Left carotid bruit R09.89 Nonrheumatic mitral valve regurgitation I34.0 Peripheral vascular disease I73.9 Thoracic aortic aneurysm I71.2 Chest pain (Resolved) R07.9 Ascending aortic aneurysm (Inactive) I71.2 Aortic Root Atherosclerosis of coronary artery bypass graft without angina pectoris (Inactive) I25.810 PRO to LAD< SVG to distal L CFX, SVG to RCA 2010 Carotid bruit (Inactive) R09.89 Left Chronic insomnia (Inactive) F51.04 Diastolic dysfunction I51.9 Family history of premature coronary heart disease (Inactive) Z82.49 Male < 55 retirement use of drug Z79.899 Mitral valve disorder (Inactive) I05.9 Paroxysmal atrial fibrillation I48.0 Allergies alendronate sodium [From Fosamax] Allergy (Verified 11/04/19 10:00) Unknown atorvastatin calcium [From Lipitor] Allergy (Verified 11/04/19 10:00) Unknown colestipol HCl [From Colestid] Allergy (Verified 11/04/19 10:00) Unknown cortisone acetate [From Cortone] Allergy (Verified 11/04/19 10:00) Unknown ezetimibe [From Zetia] Allergy (Verified 11/04/19 10:00) Unknown gabapentin Allergy (Verified 11/04/19 10:00) Unknown goserelin acetate [From Zoladex] Allergy (Verified 11/04/19 10:00) Unknown nabumetone Allergy (Verified 11/04/19 10:00) Other paroxetine HCl [From Paxil] Allergy (Verified 11/04/19 10:00) Unknown rosuvastatin calcium [From Crestor] Allergy (Verified 11/04/19 10:00) Unknown sertraline HCl [From Zoloft] Allergy (Verified 11/04/19 10:00) Unknown venlafaxine HCl [From Effexor] Allergy (Verified 11/04/19 10:00) Unknown hydrocodone Adverse Reaction (Intermediate, Verified 11/04/19 10:00) Unknown acetaminophen [From Vicodin] Adverse Reaction (Verified 11/04/19 10:00) KEEPS ME AWAKE carvedilol Adverse Reaction (Verified 11/04/19 10:00) Unknown hydrocodone bitartrate [From Vicodin] Adverse Reaction (Verified 11/04/19 10:00) KEEPS ME AWAKE venlafaxine Adverse Reaction (Severe, Uncoded 11/04/19 10:00) Unknown Home Medications: Ambulatory Orders Medication Instructions Recorded Calcium Carbonate [Calcium] 600 mg PO DAILY 03/28/15 [place]ford-3 Fatty Acids [Fish Oil] 1,000 mg PO DAILY 03/28/15 Nitroglycerin (INPATIENT USE) 0.4 mg SUBLINGUAL Q5M PRN #6 tab 05/23/17 [Nitrostat] esomeprazole magnesium 20 mg 20 mg PO QDAY PRN 09/05/17 capsule,delayed release latanoprost 0.005 % eye drops 1 drp OPHTHALMIC QHS #8 ml 09/30/18 ramipril 10 mg capsule 10 mg PO BID #180 cap 09/30/18 potassium 99 mg tablet 99 mg PO DAILY tab 04/26/19 Amlodipine Besylate [Norvasc] 5 mg PO QDAY 04/27/20 Digoxin 125 mcg PO DAILY 04/27/20 Furosemide [Lasix] 10 mg PO DAILY 04/27/20 Isosorbide Mononitrate [Isosorbide 60 mg PO DAILY 04/27/20 Mononitrate ER] Metoprolol Succinate 50 mg PO BID 04/27/20 Surgical History: Surgical History (Last Reviewed 11/04/19 @ 10:00 by Velasquez Lara) Aortocoronary bypass status (Chronic) Onset Date: ~2009 Z95.1 PRO to LAd, SVg to distal LCFX, SVG to RCA 2009 Presence of stent in coronary artery (Chronic) Onset Date: ~11/13/11 Z95.5 PTCA/Stent to SVG of OM2 11/13/11 History of knee replacement, total Z96.659 History of back surgery Z98.890 History of right shoulder replacement Z96.611 History of total hysterectomy Z98.890, Z90.710 History of percutaneous transluminal coronary angioplasty (Inactive) Z98.61 PTCA/stent to SVG of OM2 11/13/2011, 03/25/12 Surgical History: angioplasty, coronary bypass surgery - Coronary artery bypass grafting was done in 2011. 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 Smoking Status: Never smoker - *Family History Maternal Family History: Family History (Last Reviewed 11/04/19 @ 10:00 by Velasquez Lara) Brother CAD (coronary artery disease) Diabetes Myocardial infarction Father CAD (coronary artery disease) Other Family history of premature coronary heart disease History Items: Heart Disease Paternal Family History: Family History (Last Reviewed 11/04/19 @ 10:00 by Velasquez Lara) Brother CAD (coronary artery disease) Diabetes Myocardial infarction Father CAD (coronary artery disease) Other Family history of premature coronary heart disease History Items: Heart Disease Review of Systems Constitutional: Denies: Chills, Fever, Weight Change Eyes: Reports: Vision Change - Gradual with blurry vision sometimes, chronic HEENT: Reports: Difficulty Hearing. Denies: Head Aches, Sinus Congestion, Sinus Drainage Cardiovascular: Reports: Chest Pressure, Chest Tightness. Denies: Chest Pain, Palpitations Respiratory: Reports: Shortness of Breath, Shortness of breath upon exertion. Denies: Cough, Shortness of breath at rest, Sputum production Gastrointestinal: Denies: Abdominal Pain, Nausea, Vomiting Genitourinary: Denies: Dysuria, Frequency, Hesitancy Musculoskeletal: Denies: Joint Pain, Joint Tenderness Skin: Denies: Rash, Wounds Neurological: Denies: Focal weakness, Numbness, Tingling Psychiatric: Denies: Anxiety, Depression, Homicidal Ideations, Suicidal Ideations Hematologic/ Lymphatic: Denies: Easy Bruising, Easy Bleeding VTE Information - Inpt Only VTE Present on Admission: No VTE Mechan Device Prophylaxis: None VTE Pharm Prophylaxis ordered?: Yes Patient Problems: Active and Suspected Problems (Last Reviewed 11/04/19 @ 10:00 by Velasquez Lara) Chest pain (Acute) Paroxysmal atrial fibrillation with RVR (Acute) Atrial fibrillation with RVR (Acute) Hypokalemia (Acute) Sinusitis, acute (Acute) Productive cough (Acute) Atrial flutter (Acute) Sinus bradycardia (Acute) - Physical Exam Vitals/I&O's: Vital Signs Temp Pulse Resp BP Pulse Ox 96.8 F L 64 17 132/61 H 92 04/27/20 08:25 04/27/20 10:00 04/27/20 10:00 04/27/20 10:00 04/27/20 10:00 Oxygen Flow Rate (L/min) 2 Oxygen Delivery Method Room Air Weight: 112 lb 14.027 oz Body Mass Index (BMI) 19.3 General: Alert, Oriented x3, Cooperative HEENT: Atraumatic, PERRLA, EOMI, Normocephalic Oral: No Gingival or Mucosal Lesions/ Ulcerations Neck: Supple, No JVD, Negative Carotid Bruits Lungs: Clear to auscultation, Normal air movement Cardiovascular: Regular rate, Normal S1, Normal S2, Irregular Rate, Murmur - Holosystolic murmur present over cardiac apex and LLSB Abdomen: Bowel Sounds Present, Soft, Non Tender, Non-Distended, - - : No suprapubic tenderness. Urine is clear Extremities: Capillary Refill Less than 3 Seconds, Edema - Bilateral pitting leg edema. Healed biopsy over right lower leg near ankle on medial aspect Skin: No rashes, No breakdown Musculoskeletal: No Tenderness to Palpation of Joints or Extremities, Arthritic Changes Neurological: Cranial nerves II-XII grossly intact, Deep Tendon Reflexes 2+/4 and Symmetrical, Neuro grossly intact Psych/Mental Status: Normal Affect, Appropriate Laboratory Results 04/27/20 08:41: WBC 8.5, RBC 3.71 L, Hgb 12.0, Hct 35.8 L, MCV 96.5, MCH 32.3 H, MCHC 33.5, RDW Std Deviation 54.4 H, RDW Coeff of Zuleima 15.7 H, Plt Count 283, MPV 9.2, Immature Gran % (Auto) 0.200, Neut % (Auto) 71.7 H, Lymph % (Auto) 18.3 L, Richardson % (Auto) 8.6, Eos % (Auto) 0.7, Baso % (Auto) 0.5, Absolute Neuts (auto) 6.1, Absolute Lymphs (auto) 1.55, Nucleated RBC % 0.2 04/27/20 08:41: Sodium 139, Potassium 3.5, Chloride 107, Carbon Dioxide 27.0, Anion Gap 5, BUN 13, Creatinine 0.85, Estim Creat Clear Calc 39.11, Est GFR (MDRD) Af Amer 82, Est GFR (MDRD) Non-Af 67, BUN/Creatinine Ratio 15.3, Glucose 145 H, Calcium 9.1, Troponin I < 0.015 Current Medications Nitroglycerin (Nitroglycerin Sl (Ed/Img/Cath) 0.4 Mg Tablet) 0.4 mg SUBLINGUAL Q5M PRN PRN Reason: Chest pain Last Admin: 04/27/20 09:06 Dose: 0.4 mg Documented by: Assessment/Plan All Active Problems (Last Reviewed 11/04/19 @ 10:00 by Velasquez Lara) Chest pain (Acute) Paroxysmal atrial fibrillation with RVR (Acute) Atrial fibrillation with RVR (Acute) Hypokalemia (Acute) Sinusitis, acute (Acute) Productive cough (Acute) Atrial flutter (Acute) Sinus bradycardia (Acute) Chest pain (Resolved) Diarrhea (Resolved) This 84-year-old question female was admitted with exertional dyspnea, PND and orthopnea and chest tightness. Twelve-lead EKG shows chronic A. fib and nonspecific ST-T changes in anterolateral leads similar to previous EKG. First troponin negative. She had aspirin 324 mg in ED. 1. Acute on chronic diastolic heart failure/HFpEF with chest tightness, atypical chest pain: The patient is being admitted in PCU. Serial troponin. Repeat twelve-lead EKG is similar with first and previous EKGs in the past. Chronic A. fib with nonspecific ST-T changes in anterolateral lead. Patient had echo done in May 2019 as reported below Interpretation Summary Left ventricular systolic function is normal.The estimated ejection fraction is 65 %. The left atrium is mildly enlarged.The right atrium is mildly enlarged. Moderate (2+) mitral valve insufficiency. Moderate (2+) tricuspid valve insufficiency. Aortic sclerosis, no stenosis. Mild (1+) aortic valve insufficiency. Trivial pulmonic valve insufficiency. Right ventricular systolic pressure estimated to be 35 mmHg. Serial troponin enzymes. Lasix 40 mg IV daily. Heart failure protocol with fluid restriction, strict intake and output monitoring, electrolytes and kidney function monitoring and weight monitoring. Repeat 2D echo ordered. 2. Chronic cardiovascular conditions: Coronary artery disease status post triple-vessel CABG, stent to SVG of OM 2, in November 2011, chronic A. fib not on anticoagulant, chronic MR and TR, thoracic aortic aneurysm without rupture, carotid artery disease: Patient is on digoxin, isosorbide mononitrate 60 mg daily, amlodipine, ramipril, Lasix 10 mg daily with potassium supplement. Home medications continued except change in the Lasix. Digoxin level ordered. BNP ordered 3. Hypertension: Blood pressure is in acceptable range as per her age and comorbidities 4. Dyslipidemia: Fasting profile ordered. Patient allergic to atorvastatin colestipol. At home she is on omega-3 fatty acid. 5. Other comorbidities include glaucoma, GERD and chronic degenerative arthritis: Home medications reconciliation done. Living will/advanced directive/end of life care: Patient has living will or advanced directive. Tomeka Matthews is the power of nuclear physicist for health. She wishes to make anatomical gift. After discussion of benefits/risks procedures involved with full code, DNR CC arrest and DNR CC, the patient opted for DNR-CC Arrest with no intubation Patient does not want artificial life support including intubation, tube feed, ventilator and/chest compression, central venous catheter, vasopressor and DC shock if needed Total time spent in [id number] encounter in discussion of advanced directive 16 minutes. OBSV E&M: [id number] Initial observation care L3 Procedures: 34034 Advncd Care Plan 30 Min
--- NOTE | 2020-04-27 10:11 | NURSING ---
DR PENELOPE BACK
--- NOTE | 2020-04-27 10:14 | NURSING ---
PCU OBS PENELOPE VILLELA
--- NOTE | 2020-04-27 11:28 | EKG12_ITS ---
Test Reason : CP Blood Pressure : / mmHG Vent. Rate : 066 BPM Atrial Rate : 202 BPM P-R Int : 000 ms QRS Dur : 080 ms QT Int : 398 ms P-R-T Axes : 000 060 -52 degrees QTc Int : [address] & T wave abnormality, consider anterolateral ischemia Abnormal ECG Confirmed by ZACK BOYCE, MAURO ([id number]), business editor EM LANDA ([id number]) on 05/03/2020 6:11:08 AM Referred By: MR Confirmed By:MAURO DIXON MD
[2020-04-27 11:46] LABS: Magnesium 1.8 mg/dL (1.6-2.6)
--- NOTE | 2020-04-27 12:24 | ECHOD_ITS ---
Reason For Study: HEART FAILURE Procedure This was a 2D Doppler, Color Flow transthoracic echocardiogram. Exam performed portable in patient room. Left Ventricle Normal LV size. The estimated ejection fraction is 55 %. Diastolic function is indeterminate. No regional wall motion abnormalities noted. Right Ventricle Normal RV size. Normal systolic function. Atria The left atrium is mildly enlarged. The right atrium is mildly enlarged. No doppler evidence for ASD. Mitral Valve There is no mitral valve stenosis. Mild-Moderate (1-2+) mitral valve insufficiency. Tricuspid Valve There is no tricuspid stenosis. Trivial tricuspid valve insufficiency. Pulmonary artery systolic pressure is 45 mmHg. Aortic Valve There is no aortic stenosis. Mild (1+) aortic valve insufficiency. Pulmonic Valve There is no pulmonic valvular stenosis. Trivial pulmonic valve insufficiency. Great Vessels Normal aortic root. Pericardium/Pleural No pericardial effusion. MMode/2D Measurements & Calculations LVIDd: 4.0 cm IVSd: 0.77 cm Ao root diam: 3.0 cm LVIDs: 2.5 cm LVPWd: 0.82 cm RVDd: 2.8 cm FS: 39.3 % LAV(MOD-bp): 56.5 ml LA A4 area: 19.7 cm2 LA dimension(2D): 3.8 cm LAV(MOD-bp) Indexed: 38.1 ml/m2 LAV(MOD-sp2): 46.2 ml LAV(MOD-sp4): 66.4 ml Time Measurements MV dec time: 0.15 sec Doppler Measurements & Calculations MV E max lucius: 98.2 cm/sec Lat Peak E' Lucius: 11.7 cm/sec Med Peak E' Lucius: 9.1 cm/sec MV A max lucius: 30.3 cm/sec E/E' lat: 8.4 E/E' med: 10.8 MV E/A: 3.2 Ao V2 max: 115.9 cm/sec AI max lucius: 407.9 cm/sec LV V1 max: 87.1 cm/sec Ao max P.4 mmHg AI max P.7 mmHg LV V1 max P.0 mmHg AI dec slope: 191.8 cm/sec2 AI P1/2t: 623.1 msec PA V2 max: 84.3 cm/sec TR max lucius: 293.0 cm/sec TR max P.1 mmHg Interpretation Summary The estimated ejection fraction is 55 %. Diastolic function is indeterminate. The left atrium is mildly enlarged. Mild (1+) aortic valve insufficiency. Mild-Moderate (1-2+) mitral valve insufficiency. Ordering Physician: Rajesh Sun Referring Physician: Rachel Bernabe Performed By: Tisha Burns RDCS, RVT
[2020-04-27 12:46] LABS: Digoxin Level 2.35 ng/mL (0.80-2.00)
[2020-04-27] MEDS: Enoxaparin 40 MG/0.4 ML Syringe SC (12:46)
[2020-04-27] MEDS: 0.9% Saline Lock 10 ML Syringe IV (12:46)
[2020-04-27] MEDS: Furosemide 40 MG/4 ML Vial IV (12:47)
[2020-04-27] MEDS: Ramipril 10 MG Capsule PO (23:13)
[2020-04-27] MEDS: Metoprolol(XL)Succ 25 MG Tablet PO (23:16)
[2020-04-27] MEDS: Latanoprost 0.005% 1 Bottle 1 DRP OPHTHALMIC (23:17)
[2020-04-27] MEDS: amLODIPine 5 MG Tablet PO (23:22)
[2020-04-28] VITALS (13 sets, daily range): BP systolic 133–157; BP diastolic 51–74; PULSE 56–77; RESP 15–18; TEMP 35.8–36.8; O2SAT 93–98
--- NOTE | 2020-04-28 00:30 | PCS.PANDOC ---
PANDEMIC DOCUMENTATION INITIATED: Date: 04/27/20 Time: 2169
--- NOTE | 2020-04-28 01:01 | PCM.PN.BLA ---
Progress Note Nurse reported patient has cramping of legs. Magnesium is 1.6; replaced. Magnesium ordered for a.m. of 04/28/2020 move to 04/29/2020. Instructed the nurse to give morphine already ordered. STROKE Vital Signs/Narrative: Vital Signs Temp Pulse Resp BP Pulse Ox 04/27/20 23:16 68 04/27/20 23:05 97.9 F 62 18 154/61 H 95
[2020-04-28] MEDS: 0.9% Saline Lock 10 ML Syringe IV ×2 (02:08→11:32)
[2020-04-28] MEDS: Acetaminophen 325 MG Tablet 650 MG PO ×2 (04:16→14:00)
--- NOTE | 2020-04-28 05:55 | EKG12_ITS ---
Test Reason : AM EKG Blood Pressure : / mmHG Vent. Rate : 061 BPM Atrial Rate : 214 BPM P-R Int : 000 ms QRS Dur : 076 ms QT Int : 432 ms P-R-T Axes : 000 018 -63 degrees QTc Int : 434 ms Atrial fibrillation Nonspecific ST & Twave abnormality Abnormal ECG Confirmed by ABIOLA BOYCE, SAFIA ([id number]), web content editor REEMA MORATAYA ([id number]) on 05/05/2020 9:52:10 AM Referred By: DR NEGRETE Confirmed By:SAFIA CULVER MD
[2020-04-28] MEDS: Ramipril 10 MG Capsule PO ×2 (06:25→22:10)
[2020-04-28 07:34] LABS: Anion Gap 5 (5-15); BUN 17 mg/dL (7-18); BUN/Creat Ratio 21.2 RATIO (10-20); Calcium,Total 8.9 mg/dL (8.5-10.1); Chloride 107 mmol/L (98-107); Cholesterol 151 mg/dL (200); EST Glomerular Filtration Rate 72 mL/min (>60); Est Glom Filt Rate - Afr Amer 87 mL/min (>60); Glucose 89 mg/dL (74-106); High Density Lipoprotein 47 mg/dL; Magnesium 2.6 mg/dL (1.6-2.6); Potassium 3.7 mmol/L (3.5-5.1); Sodium Level 140 mmol/L (136-145); Thyroid Stim Hormone (TSH) 2.93 uIU/mL (0.358-3.74); Triglycerides 61 mg/dL; Very Low Density Lipoprotein 12 mg/dL (5-40)
[2020-04-28 07:45] LABS: Digoxin Level 1.41 ng/mL (0.80-2.00)
[2020-04-28] MEDS: Furosemide 40 MG/4 ML Vial IV (11:31)
[2020-04-28] MEDS: amLODIPine 5 MG Tablet PO (11:32)
[2020-04-28] MEDS: Isosorbide Mononitrate 60 MG Tablet PO (11:33)
[2020-04-28] MEDS: Metoprolol(XL)Succ 25 MG Tablet PO (11:37)
--- NOTE | 2020-04-28 13:17 | STRESSREP ---
Stress Test Report Date: 04-28-2020 Procedure: Pharmacologic stress nuclear imaging study Indications: Chest pain; CAD; PCI; CABG Consent: Per the patient Procedure: The patient underwent pharmacologic (Regadenoson) evaluation with a peak heart rate of 99 beats per minute (73%predicted maximal heart rate) and a peak blood pressure of 158/60 mmHg. The baseline ECG demonstrated atrial fibrillation; nonspecific ST segment abnormality. The peak pharmacologic ECG demonstrated no obvious ECG changes. There was a rare PVC during recovery. There was no complaint of chest discomfort during pharmacologic infusion or recovery. The examination was discontinued secondary to completion of protocol. Impression: 1. Pharmacologic (Regadenoson) evaluation 2. Peak pharmacologic ECG with continued nonspecific ST segment abnormality. 3. There was a rare PVC during recovery. 4. Nuclear images pending Myocardial perfusion imaging study: Technique: The patient was injected with 11.1 millicuries of technetium 99m Cardiolite and subsequently rest SPECT Cardiolite nuclear imaging was obtained in the horizontal long, vertical long, and short axis views. The patient underwent pharmacologic (Regadenoson) evaluation with a peak heart rate of 99 beats per minute (73% percent predicted maximal heart rate) and a peak blood pressure of 158/60 mmHg. The patient was injected with 32.8 millicuries of technetium 99m Cardiolite and subsequently stress SPECT Cardiolite nuclear imaging was obtained in the horizontal long, vertical long, and short axis views. A gated Cardiolite study at peak stress was obtained. Interpretation: Rest and stress SPECT Cardiolite nuclear imaging status post realignment, normalization, and attenuation correction demonstrate relative uniform tracer uptake and myocardial perfusion appearing within normal limits. There is end systolic thickening and brightening. The gated Cardiolite study demonstrates myocardial thickening and inward wall motion. The reported LVEF is 81%. Impression: 1. Rest and stress SPECT Cardiolite nuclear imaging demonstrate relative uniform tracer uptake and myocardial perfusion appearing within normal limits. 2. The gated Cardiolite study reports an LVEF of 81%. This note was generated with [employer] software. It may contain incorrect words, spelling, and punctuation that were not noted in checking the note before signing.
--- NOTE | 2020-04-28 14:15 | CASEMGMT ---
This RN CM to room with LEVY form at this time, explanation done-pt voices understanding, and pt signs LEVY form at this time. Original to chart and copy to pt at this time. Pt voices no further questions/concerns/needs at this time. SStaten FAMILIA CM
--- NOTE | 2020-04-28 17:33 | PCM.PN.HOSP ---
Patient Problems: Active and Suspected Problems (Last Reviewed 11/04/19 @ 10:00 by Velasquez Lara) Chest pain (Acute) Paroxysmal atrial fibrillation with RVR (Acute) Atrial fibrillation with RVR (Acute) Hypokalemia (Acute) Sinusitis, acute (Acute) Productive cough (Acute) Atrial flutter (Acute) Sinus bradycardia (Acute) Reason for Visit: Follow-up for CHF exacerbation, sinus bradycardia with sinus pause. Objective: On cardiac catheterization technician patient has sinus bradycardia, heart rate in 50s which increased to 60s in afternoon. Patient also had sinus pause about 2.07-second in yesterday afternoon. A. fib with bradycardia Physical exam General: Alert, Oriented x3, Cooperative HEENT: Atraumatic, PERRLA, EOMI, Normocephalic Oral: No Gingival or Mucosal Lesions/ Ulcerations Neck: Supple, No JVD, Negative Carotid Bruits Lungs: Air entry diminished in bilateral lung bases. No crepitation/rhonchi Cardiovascular: A. fib with slow ventricular response. Holosystolic murmur present over cardiac apex and LLSB Abdomen: Bowel Sounds Present, Soft, Non Tender, Non-Distended : No renal angle tenderness. No suprapubic tenderness. Extremities: No edema, Capillary Refill Less than 3 Seconds Skin: No rashes, No breakdown Musculoskeletal: No Tenderness to Palpation of Joints or Extremities Neurological: Cranial nerves II-XII grossly intact, Deep Tendon Reflexes 2+/4 and Symmetrical, Neuro grossly intact Psych/Mental Status: Normal Affect, Appropriate. Vitals/I&O's: Vital Signs Temp Pulse Resp BP Pulse Ox 98.2 F 64 18 133/59 H 98 04/28/20 16:25 04/28/20 16:25 04/28/20 16:25 04/28/20 16:25 04/28/20 16:25 Oxygen Flow Rate (L/min) 2 Oxygen Delivery Method Room Air Weight: 110 lb 7.225 oz Body Mass Index (BMI) 20.1 Intake and Output for Last 24 Hours 04/26/20 04/27/20 04/28/20 23:59 23:59 23:59 Intake Total 240 / 240 344 / 344 Output Total 2800 / 2800 850 / 850 Balance -2560 / -2560 -506 / -506 Laboratory Results 04/28/20 05:46: Sodium 140, Potassium 3.7, Chloride 107, Carbon Dioxide 28.0, Anion Gap 5, BUN 17, Creatinine 0.80, Estim Creat Clear Calc 40.50, Est GFR (MDRD) Af Amer 87, Est GFR (MDRD) Non-Af 72, BUN/Creatinine Ratio 21.2 H, Glucose 89, Calcium 8.9, Magnesium 2.6, Triglycerides 61, Cholesterol 151, LDL Cholesterol 92, VLDL Cholesterol 12, HDL Cholesterol 47, TSH 2.93 04/28/20 05:46: Digoxin 1.41 Current Medications Acetaminophen (Acetaminophen 325 Mg Tablet) 650 mg PO Q6H PRN PRN PRN Reason: Pain Score 1-10/Temp > 100.7 F Last Admin: 04/28/20 14:00 Dose: 650 mg Documented by: Al Hydroxide/Mg Hydroxide (Mag Hydrox/Al Hydrox/Simeth 30 Ml Udc) 30 ml PO Q6H PRN PRN PRN Reason: Gastric Burning Albuterol Sulfate (Albuterol 2.5 Mg/3 Ml Vial.Neb.) 2.5 mg INHALATION Q2H PRN PRN PRN Reason: SOB/Wheezing Amlodipine Besylate (Amlodipine 5 Mg Tablet) 5 mg PO DAILY [facility] Last Admin: 04/28/20 11:32 Dose: 5 mg Documented by: Enoxaparin Sodium (Enoxaparin 40 Mg/0.4 Ml Syringe) 40 mg SC DAILY [facility] Last Admin: 04/28/20 11:31 Dose: Not Given Documented by: Furosemide (Furosemide 40 Mg/4 Ml Vial) 40 mg IV DAILY [facility] Last Admin: 04/28/20 11:31 Dose: 40 mg Documented by: Sodium Chloride () 250 mls @ 15 mls/hr IV .[id number] PRN PRN Reason: Saline Flush Sodium Chloride () 250 mls @ 15 mls/hr IV .[id number] PRN PRN Reason: Additional IVPB Infusion Isosorbide Mononitrate (Isosorbide Mononitrate 60 Mg Tablet) 60 mg PO DAILY [facility] Last Admin: 04/28/20 11:33 Dose: 60 mg Documented by: Latanoprost (Latanoprost 0.005% 1 Bottle) 1 drop OPHTHALMIC QHS [facility] Last Admin: 04/27/20 23:17 Dose: 1 drop Documented by: Melatonin (Melatonin 3 Mg Tablet) 3 mg PO QHS PRN PRN PRN Reason: INSOMNIA Metoprolol Tartrate (Metoprolol Tartrate 25 Mg Tablet) 25 mg PO BID [facility] Morphine Sulfate (Morphine 2 Mg/Ml Syringe) 2 mg IV Q3H PRN PRN PRN Reason: Pain Score 6-10 Nitroglycerin (Nitroglycerin Sl (Ed/Img/Cath) 0.4 Mg Tablet) 0.4 mg SUBLINGUAL Q5M PRN PRN Reason: Chest pain Last Admin: 04/27/20 09:06 Dose: 0.4 mg Documented by: Nitroglycerin (Nitroglycerin (Inpatient Use) 0.4 Mg Tab.Subl) 0.4 mg SUBLINGUAL Q5M PRN PRN Reason: CHEST PAIN Pantoprazole Sodium (Pantoprazole Sodium 20 Mg Tablet) 20 mg PO DAILY PRN PRN Reason: ACID REFLUX Potassium Chloride (Potassium Chloride 20 Meq Tablet) 40 meq PO DAILYCM [facility] Stop: 04/29/20 11:29 Last Admin: 04/28/20 11:32 Dose: 40 meq Documented by: Prochlorperazine Edisylate (Prochlorperazine 10 Mg/2 Ml Vial) 5 mg IV Q4H PRN PRN PRN Reason: Breakthrough Nausea/Vomiting Ramipril (Ramipril 10 Mg Capsule) 10 mg PO BID [facility] Last Admin: 04/28/20 06:25 Dose: 10 mg Documented by: Senna/Docusate Sodium (Senna/Docusate Sodium 1 Tablet) 2 tablet PO BID PRN PRN PRN Reason: Constipation Sodium Chloride (0.9% Saline Lock 10 Ml Syringe) 10 - 40 ml IV UD PRN PRN Reason: SALINE FLUSH Last Admin: 04/28/20 11:32 Dose: 10 ml Documented by: STROKE Vital Signs/Narrative: Vital Signs Temp Pulse Resp BP Pulse Ox 04/28/20 16:25 98.2 F 64 18 133/59 H 98 Medical Necessity - Tobacco Use Smoking Status: Never smoker Assessment/Plan All Active Problems (Last Reviewed 11/04/19 @ 10:00 by Velasquez Lara) Chest pain (Acute) Paroxysmal atrial fibrillation with RVR (Acute) Atrial fibrillation with RVR (Acute) Hypokalemia (Acute) Sinusitis, acute (Acute) Productive cough (Acute) Atrial flutter (Acute) Sinus bradycardia (Acute) Chest pain (Resolved) Diarrhea (Resolved) This 84-year-old question female was admitted with exertional dyspnea, PND and orthopnea and chest tightness. Twelve-lead EKG shows chronic A. fib and nonspecific ST-T changes in anterolateral leads similar to previous EKG. First troponin negative. She had aspirin 324 mg in ED. 1. Acute on chronic diastolic heart failure/HFpEF with chest tightness, atypical chest pain: The patient is being admitted in PCU. Serial troponin. Repeat twelve-lead EKG is similar with first and previous EKGs in the past. Chronic A. fib with nonspecific ST-T changes in anterolateral lead. Patient had echo done in May 2019 as reported below Interpretation Summary Left ventricular systolic function is normal.The estimated ejection fraction is 65 %. The left atrium is mildly enlarged.The right atrium is mildly enlarged. Moderate (2+) mitral valve insufficiency. Moderate (2+) tricuspid valve insufficiency. Aortic sclerosis, no stenosis. Mild (1+) aortic valve insufficiency. Trivial pulmonic valve insufficiency. Right ventricular systolic pressure estimated to be 35 mmHg. 04/28: Serial troponin negative. Patient has improvement in shortness of breath and leg edema on Lasix. Net negative 3 L fluid balance. Echo done on 04/27/2020 Interpretation Summary The estimated ejection fraction is 55 %. Diastolic function is indeterminate. The left atrium is mildly enlarged. Mild (1+) aortic valve insufficiency. Mild-Moderate (1-2+) mitral valve insufficiency. Pharmacological nuclear stress test negative. 2. Chronic cardiovascular conditions: Coronary artery disease status post triple-vessel CABG, stent to SVG of OM 2, in November 2011, chronic A. fib not on anticoagulant, chronic MR and TR, thoracic aortic aneurysm without rupture, carotid artery disease: 04/28: BNP elevated 453. Digoxin toxic level 2.35 and digoxin was not given and discontinued. Metoprolol succinate changed to metoprolol tartrate and decreased to 25 mg twice daily. On ramipril 10 mg twice daily. Isosorbide mononitrate 60 mg daily. TSH normal. 3. Hypertension: Blood pressure is in acceptable range as per her age and comorbidities 4. Dyslipidemia: Fasting profile ordered. Patient allergic to atorvastatin colestipol. At home she is on omega-3 fatty acid. Fasting profile is within normal limit, LDL 92. 5. Other comorbidities include glaucoma, GERD and chronic degenerative arthritis: Home medications reconciliation done. Living will/advanced directive/end of life care: Patient has living will or advanced directive. Tomeka Matthews is the power of associate attorney for health. She wishes to make anatomical gift. After discussion of benefits/risks procedures involved with full code, DNR CC arrest and DNR CC, the patient opted for DNR-CC Arrest with no intubation Patient does not want artificial life support including intubation, tube feed, ventilator and/chest compression, central venous catheter, vasopressor and DC shock if needed Total time spent in [id number]-[id number] encounter in discussion of advanced directive 16 minutes. Inpatient E&M: 64289 Subs Hosp L2
[2020-04-28] MEDS: Metoprolol Tartrate 25 MG Tablet PO (22:11)
[2020-04-28] MEDS: Latanoprost 0.005% 1 Bottle 1 DRP OPHTHALMIC (22:13)
[2020-04-28] MEDS: MELATONIN 3 MG TABLET PO (23:25)
[2020-04-29] VITALS (7 sets, daily range): BP systolic 129–143; BP diastolic 68–77; PULSE 51–64; RESP 15–16; TEMP 36.3–36.6; O2SAT 95–96
--- NOTE | 2020-04-29 08:38 | DCINST_ITS ---
- Discharge Diagnoses Current Active Problems: Current Active and Chronic Problems (Last Reviewed 11/04/19 @ 10:00 by Velasquez Lara) Chest pain (Acute) CAD in [place] artery (Chronic) Atrial fibrillation (Chronic) Acute on chronic diastolic heart failure (Chronic) Essential hypertension (Chronic) Paroxysmal atrial fibrillation with RVR (Acute) Atrial fibrillation with RVR (Acute) Hypokalemia (Acute) Sinusitis, acute (Acute) Left carotid bruit (Chronic) Productive cough (Acute) Valvular heart disease (Chronic) Carotid artery disease (Chronic) Thoracic aortic aneurysm without rupture (Chronic) Atherosclerotic heart disease of [place] coronary artery without angina pectoris (Chronic) PRO to LAD, SVG to distal LCFX, SVG to RCA 2009; PTCA/Stent to SVG of 2 11/13/11 Aortocoronary bypass status (Chronic ~2009) PRO to LAd, SVg to distal LCFX, SVG to RCA 2009 Chronic diastolic (congestive) heart failure (Chronic) Paroxysmal atrial fibrillation (Chronic) Presence of stent in coronary artery (Chronic ~11/13/11) PTCA/Stent to SVG of [facility] 11/13/11 Hyperlipidemia (Chronic) Atrial flutter (Acute) Sinus bradycardia (Acute) Aortic insufficiency (Chronic) Mild Mitral valve regurgitation (Chronic) Aortic valve disorder (Chronic) You will use the following diet at home:: Cardiac Your food should be the consistency of: Regular Your liquids should be the consistency of: Regular/Thin Discharge Activity: May Not Drive Call your doctor if you observe: Fever of 101 or Higher, Coldness, Increased Pain, Numbness or Tingling, Change in Color, Inability to urinate, Inability to have a bowel movement, Shortness of breath, Dizziness, Fainting spells, Swelling in the ankles, Chest pain, Prolonged hiccoughing, Increased palpitations (irregular heartbeat), Calf discomfort, Uncontrolled pain Additional Instructions: Do not take Lasix, metoprolol, isosorbide mononitrate or ramipril if you are feeling dizzy or lightheaded Allergies/Adverse Reactions: Allergies alendronate sodium [From Fosamax] Allergy (Verified 11/04/19 10:00) Unknown atorvastatin calcium [From Lipitor] Allergy (Verified 11/04/19 10:00) Unknown colestipol HCl [From Colestid] Allergy (Verified 11/04/19 10:00) Unknown cortisone acetate [From Cortone] Allergy (Verified 11/04/19 10:00) Unknown ezetimibe [From Zetia] Allergy (Verified 11/04/19 10:00) Unknown gabapentin Allergy (Verified 11/04/19 10:00) Unknown goserelin acetate [From Zoladex] Allergy (Verified 11/04/19 10:00) Unknown nabumetone Allergy (Verified 11/04/19 10:00) Other paroxetine HCl [From Paxil] Allergy (Verified 11/04/19 10:00) Unknown rosuvastatin calcium [From Crestor] Allergy (Verified 11/04/19 10:00) Unknown sertraline HCl [From Zoloft] Allergy (Verified 11/04/19 10:00) Unknown venlafaxine HCl [From Effexor] Allergy (Verified 11/04/19 10:00) Unknown hydrocodone Adverse Reaction (Intermediate, Verified 11/04/19 10:00) Unknown acetaminophen [From Vicodin] Adverse Reaction (Verified 11/04/19 10:00) KEEPS ME AWAKE carvedilol Adverse Reaction (Verified 11/04/19 10:00) Unknown hydrocodone bitartrate [From Vicodin] Adverse Reaction (Verified 11/04/19 10:00) KEEPS ME AWAKE venlafaxine Adverse Reaction (Severe, Uncoded 11/04/19 10:00) Unknown Medications to take at Discharge Calcium Carbonate [Calcium] 600 mg PO DAILY 03/28/15 [place]-3 Fatty Acids [Fish Oil] 1,000 mg PO DAILY 03/28/15 Nitroglycerin (INPATIENT USE) [Nitrostat] 0.4 mg SUBLINGUAL Q5M PRN #6 tab 05/23/17 esomeprazole magnesium 20 mg capsule,delayed release 20 mg PO QDAY PRN 09/05/17 latanoprost 0.005 % eye drops 1 drp OPHTHALMIC QHS #8 ml 09/30/18 ramipril 10 mg capsule 10 mg PO BID #180 cap 09/30/18 potassium 99 mg tablet 99 mg PO DAILY tab 04/26/19 Amlodipine Besylate [Norvasc] 5 mg PO QDAY 04/27/20 Isosorbide Mononitrate [Isosorbide Mononitrate ER] 60 mg PO DAILY 04/27/20 Furosemide [Lasix] 20 mg PO DAILY #0 01/16/21 Metoprolol Tartrate [Lopressor (beta danica)] 12.5 mg PO BID #60 tab 04/29/20 The following prescriptions were given: Metoprolol Tartrate [Lopressor (beta danica)] 12.5 mg PO BID #60 tab Transmission Status: Pending to [facility] #30 Primary Care Physician: Rachel Bernabe DO [Primary Care Provider] - Please follow up with your Primary Care Physician in: In 2 weeks Test Results: Test results from this visit will be discussed in further detail at your follow- up appointment, if applicable. Please Follow Up With: Shawn Wilkinson MD When: in 3-4 weeks for Afib with bradycardia, sinus pauses
--- NOTE | 2020-04-29 08:38 | PCM.DC.SUM ---
Discharge Date and Diagnosis - Problem List Patient Problems: Active and Suspected Problems (Last Reviewed 11/04/19 @ 10:00 by Velasquez Lara) Chest pain (Acute) Paroxysmal atrial fibrillation with RVR (Acute) Atrial fibrillation with RVR (Acute) Hypokalemia (Acute) Sinusitis, acute (Acute) Productive cough (Acute) Atrial flutter (Acute) Sinus bradycardia (Acute) Date of Admission: 04/27/20 Date of Discharge: 04/29/20 - Primary Discharge Diagnosis Acute Problems: Active Problems (Last Reviewed 11/04/19 @ 10:00 by Velasquez Lara) Chest pain (Acute) Paroxysmal atrial fibrillation with RVR (Acute) Atrial fibrillation with RVR (Acute) Hypokalemia (Acute) Sinusitis, acute (Acute) Productive cough (Acute) Atrial flutter (Acute) Sinus bradycardia (Acute) - Secondary Discharge Diagnosis Chronic Problems: Chronic Problems (Last Reviewed 11/04/19 @ 10:00 by Velasquez Lara) CAD in [place] artery (Chronic) Atrial fibrillation (Chronic) Acute on chronic diastolic heart failure (Chronic) Essential hypertension (Chronic) Left carotid bruit (Chronic) Valvular heart disease (Chronic) Carotid artery disease (Chronic) Thoracic aortic aneurysm without rupture (Chronic) Atherosclerotic heart disease of [place] coronary artery without angina pectoris (Chronic) PRO to LAD, SVG to distal LCFX, SVG to RCA 2009; PTCA/Stent to SVG of [facility] 11/13/11 Aortocoronary bypass status (Chronic ~2009) PRO to LAd, SVg to distal LCFX, SVG to RCA 2009 Chronic diastolic (congestive) heart failure (Chronic) Paroxysmal atrial fibrillation (Chronic) Presence of stent in coronary artery (Chronic ~11/13/11) PTCA/Stent to SVG of [facility] 11/13/11 Hyperlipidemia (Chronic) Aortic insufficiency (Chronic) Mild Mitral valve regurgitation (Chronic) Aortic valve disorder (Chronic) Hospital Course and Treatment Operations: None Summary of Care Provided: This 84-year-old question female was admitted with exertional dyspnea, PND and orthopnea and chest tightness. Twelve-lead EKG shows chronic A. fib and nonspecific ST-T changes in anterolateral leads similar to previous EKG. First troponin negative. She had aspirin 324 mg in ED. 1. Acute on chronic diastolic heart failure/HFpEF with chest tightness, atypical chest pain: The patient is being admitted in PCU. Repeat twelve-lead EKG is similar with first and previous EKGs in the past. Chronic A. fib with nonspecific ST-T changes in anterolateral lead. Patient had echo done in May 2019 with EF 65%, LA mildly enlarged. Moderate 2+ MR and TR. Initially patient was started on Lasix 40 mg IV daily. Patient had serial troponin negative. BNP elevated 443. Patient had net negative -3.75 L fluid balance. Lasix was changed to 20 mg daily. Echo done on 04/27/2020 Interpretation Summary The estimated ejection fraction is 55 %. Diastolic function is indeterminate. The left atrium is mildly enlarged. Mild (1+) aortic valve insufficiency. Mild-Moderate (1-2+) mitral valve insufficiency. Pharmacological nuclear stress test negative. 2. Chronic cardiovascular conditions: Coronary artery disease status post triple-vessel CABG, stent to SVG of OM 2, in November 2011, chronic A. fib not on anticoagulant, chronic MR and TR, thoracic aortic aneurysm without rupture, carotid artery disease: Chronic A. fib with slow ventricular response and sinus pauses: Was thought mainly due to combined effect of digoxin and metoprolol. Digoxin was discontinued at this level was in toxic levels of 2.35. Metoprolol dose was initially held and then resumed at lower dose 25 mg twice daily and then decreased to 12.5 mg twice daily. Continue isosorbide mononitrate 60 mg daily. TSH normal. Patient on ramipril 10 mg twice daily. 3. Hypertension: Blood pressure is in acceptable range as per her age and comorbidities 4. Dyslipidemia: Fasting profile ordered. Patient allergic to atorvastatin colestipol. At home she is on omega-3 fatty acid. Fasting profile is within normal limit, LDL 92. 5. Other comorbidities include glaucoma, GERD and chronic degenerative arthritis: Home medications reconciliation done. Living will/advanced directive/end of life care: Patient has living will or advanced directive. DNRCC arrest with no intubation Discharge medication reconciliation done. Discharge follow-up instructions completed. Discharge process discussed with the patient and all questions were answered to patient's satisfaction. Discharge medications discussed with patient's undergraduate advisor Dr. Wilkinson. Total time spent, exact 35 minutes on discharge meds reconciliation, examination, coordination of care with nurses and ancillary staff, review of imaging and blood test and discussion with the patient on follow-up instructions Patient Problems: Active and Suspected Problems (Last Reviewed 11/04/19 @ 10:00 by Velasquez Lara) Chest pain (Acute) Paroxysmal atrial fibrillation with RVR (Acute) Atrial fibrillation with RVR (Acute) Hypokalemia (Acute) Sinusitis, acute (Acute) Productive cough (Acute) Atrial flutter (Acute) Sinus bradycardia (Acute) Objective: Seen and examined. Patient does not have any symptoms of shortness of breath, palpitation or flutter waves. On distribution collection operator shows sinus pauses about 2.03 seconds. Patient's heart rate has been in 60s barring 1 or 2 occasions in 70s. Metoprolol dose further decreased to 12.5 mg twice daily with holding parameters. Physical exam General: Alert, Oriented x3, Cooperative HEENT: Atraumatic, PERRLA, EOMI, Normocephalic Oral: No Gingival or Mucosal Lesions/ Ulcerations Neck: Supple, No JVD, Negative Carotid Bruits Lungs: Air entry diminished in bilateral lung bases. No crepitation/rhonchi Cardiovascular: A. fib with slow ventricular response. Holosystolic murmur present over cardiac apex and LLSB Abdomen: Bowel Sounds Present, Soft, Non Tender, Non-Distended : No renal angle tenderness. No suprapubic tenderness. Extremities: No edema, Capillary Refill Less than 3 Seconds Skin: No rashes, No breakdown Musculoskeletal: No Tenderness to Palpation of Joints or Extremities Neurological: Cranial nerves II-XII grossly intact, Deep Tendon Reflexes 2+/4 and Symmetrical, Neuro grossly intact Psych/Mental Status: Normal Affect, Appropriate. - Physical Exam Vitals/I&O's: Vital Signs Temp Pulse Resp BP Pulse Ox 97.4 F L 64 15 129/68 H 95 04/29/20 03:35 04/29/20 07:42 04/29/20 03:35 04/29/20 03:35 04/29/20 07:44 Oxygen Flow Rate (L/min) 2 Oxygen Delivery Method Room Air Weight: 103 lb 9.6 oz Body Mass Index (BMI) 20.1 Intake and Output for Last 24 Hours 04/27/20 04/28/20 04/29/20 23:59 23:59 23:59 Intake Total 240 / 240 644 / 794 250 / 250 Output Total 2800 / 2800 2049 / 2049 Balance -2560 / -2560 -1406 / -1256 250 / 250 Current Medications Acetaminophen (Acetaminophen 325 Mg Tablet) 650 mg PO Q6H PRN PRN PRN Reason: Pain Score 1-10/Temp > 100.7 F Last Admin: 04/28/20 14:00 Dose: 650 mg Documented by: Al Hydroxide/Mg Hydroxide (Mag Hydrox/Al Hydrox/Simeth 30 Ml Udc) 30 ml PO Q6H PRN PRN PRN Reason: Gastric Burning Albuterol Sulfate (Albuterol 2.5 Mg/3 Ml Vial.Neb.) 2.5 mg INHALATION Q2H PRN PRN PRN Reason: SOB/Wheezing Amlodipine Besylate (Amlodipine 5 Mg Tablet) 5 mg PO DAILY [facility] Last Admin: 04/28/20 11:32 Dose: 5 mg Documented by: Enoxaparin Sodium (Enoxaparin 40 Mg/0.4 Ml Syringe) 40 mg SC DAILY [facility] Last Admin: 04/28/20 11:31 Dose: Not Given Documented by: Furosemide (Furosemide 40 Mg/4 Ml Vial) 40 mg IV DAILY [facility] Last Admin: 04/28/20 11:31 Dose: 40 mg Documented by: Sodium Chloride () 250 mls @ 15 mls/hr IV .[id number] PRN PRN Reason: Saline Flush Sodium Chloride () 250 mls @ 15 mls/hr IV .[id number] PRN PRN Reason: Additional IVPB Infusion Isosorbide Mononitrate (Isosorbide Mononitrate 60 Mg Tablet) 60 mg PO DAILY [facility] Last Admin: 04/28/20 11:33 Dose: 60 mg Documented by: Latanoprost (Latanoprost 0.005% 1 Bottle) 1 drop OPHTHALMIC QHS [facility] Last Admin: 04/28/20 22:13 Dose: 1 drop Documented by: Melatonin (Melatonin 3 Mg Tablet) 3 mg PO QHS PRN PRN PRN Reason: INSOMNIA Last Admin: 04/28/20 23:25 Dose: 3 mg Documented by: Metoprolol Tartrate (Metoprolol Tartrate 25 Mg Tablet) 25 mg PO BID [facility] Last Admin: 04/28/20 22:11 Dose: 25 mg Documented by: Morphine Sulfate (Morphine 2 Mg/Ml Syringe) 2 mg IV Q3H PRN PRN PRN Reason: Pain Score 6-10 Nitroglycerin (Nitroglycerin Sl (Ed/Img/Cath) 0.4 Mg Tablet) 0.4 mg SUBLINGUAL Q5M PRN PRN Reason: Chest pain Last Admin: 04/27/20 09:06 Dose: 0.4 mg Documented by: Nitroglycerin (Nitroglycerin (Inpatient Use) 0.4 Mg Tab.Subl) 0.4 mg SUBLINGUAL Q5M PRN PRN Reason: CHEST PAIN Pantoprazole Sodium (Pantoprazole Sodium 20 Mg Tablet) 20 mg PO DAILY PRN PRN Reason: ACID REFLUX Potassium Chloride (Potassium Chlor[facility] 20 Meq Tablet) [facility]: 04/29/20 11:29 Last Admin: 04/28/20 11:32 Dose: 40 meq Documented by: Prochlorperazine Edisylate (Prochlorperazine 10 Mg/2 Ml Vial) 5 mg IV Q4H PRN PRN PRN Reason: Breakthrough Nausea/Vomiting Ramipril (Ramipril 10 Mg Capsule) 10 mg PO BID [facility] Last Admin: 04/28/20 22:10 Dose: 10 mg Documented by: Senna/Docusate Sodium (Senna/Docusate Sodium 1 Tablet) 2 tablet PO BID PRN PRN PRN Reason: Constipation Sodium Chloride (0.9% Saline Lock 10 Ml Syringe) 10 - 40 ml IV UD PRN PRN Reason: SALINE FLUSH Last Admin: 04/28/20 11:32 Dose: 10 ml Documented by: Home Medications: Medications to take at Discharge Calcium Carbonate [Calcium] 600 mg PO DAILY 03/28/15 [place]-3 Fatty Acids [Fish Oil] 1,000 mg PO DAILY 03/28/15 Nitroglycerin (INPATIENT USE) [Nitrostat] 0.4 mg SUBLINGUAL Q5M PRN #6 tab 05/23/17 esomeprazole magnesium 20 mg capsule,delayed release 20 mg PO QDAY PRN 09/05/17 latanoprost 0.005 % eye drops 1 drp OPHTHALMIC QHS #8 ml 09/30/18 ramipril 10 mg capsule 10 mg PO BID #180 cap 09/30/18 potassium 99 mg tablet 99 mg PO DAILY tab 04/26/19 Amlodipine Besylate [Norvasc] 5 mg PO QDAY 04/27/20 Isosorbide Mononitrate [Isosorbide Mononitrate ER] 60 mg PO DAILY 04/27/20 Furosemide [Lasix] 20 mg PO DAILY #0 04/29/20 Metoprolol Tartrate [Lopressor (beta danica)] 12.5 mg PO BID #60 tab 04/29/20 Following Prescriptions Were Given to Patient: Metoprolol Tartrate [Lopressor (beta danica)] 12.5 mg PO BID #60 tab Transmission Status: Received by [facility]30 Primary Care Physician: Rachel Bernabe DO [Primary Care Provider] - Medical Necessity - Tobacco Use Smoking Status: Never smoker Meaningful Use Info Meaningful Use Diagnoses (Choose all that apply): CHF - CHF PEACE/ARB ordered at discharge?: Yes Documented LVEF (%): 55 Inpatient E&M: 16383 Disch Hosp
[2020-04-29] MEDS: amLODIPine 5 MG Tablet PO (08:53)
[2020-04-29] MEDS: Enoxaparin 40 MG/0.4 ML Syringe SC (08:53)
[2020-04-29] MEDS: Isosorbide Mononitrate 60 MG Tablet PO (08:53)
[2020-04-29] MEDS: Metoprolol Tartrate 25 MG Tablet PO (08:54)
[2020-04-29] MEDS: Ramipril 10 MG Capsule PO (08:54)
[2020-04-29] MEDS: Furosemide 20 MG Tablet PO (10:36)
--- NOTE | 2020-04-29 13:23 | NURSING ---
PT ADVISED AGAINST DRIVING D/T PAUSES. FAMILY TO COME AND CLERK STENOGRAPHER PT. DC INSTRUCTIONS GONE OVER WITH PT AND NO QUESTIONS VOICED. WILL CALL OUT WHEN DAUGHTER DOWNSTAIRS
--- NOTE | 2020-04-29 14:20 | NURSING ---
1406 PTS DAUGHTER HERE FOR DC SECURITY ASSOCIATE. ESCORTED TO MAIN ENTRANCE VIA WC WITH ALL BELONGINGS.
== END 2020-04-29 12:14 | disposition home or self-care (01) ==
LOC: ED 09:40 → PCU 10:40
PROVIDERS: Admitting Provider Internal Medicine; Emergency Provider Emergency Medicine; PCP Family Medicine; Visit Provider Internal Medicine
DX: I11.0 Hypertensive heart disease with heart failure (principal); I48.21 Permanent atrial fibrillation; I25.10 Atherosclerotic heart disease of native coronary artery without angina pectoris; I50.33 Acute on chronic diastolic (congestive) heart failure; E78.2 Mixed hyperlipidemia; K21.9 Gastro-esophageal reflux disease without esophagitis; I48.92 Unspecified atrial flutter; I73.9 Peripheral vascular disease, unspecified; I08.0 Rheumatic disorders of both mitral and aortic valves; R00.1 Bradycardia, unspecified; Z95.1 Presence of aortocoronary bypass graft; Z79.899 Other long term (current) drug therapy
CPT/HCPCS: 36415; 71046; 78452; 80048; 80061; 80162; 83735; 83880; 84443; 84484; 85025; 93005; 93017; 93306; 96372; 96374; 96376; 99218; 99285; A9500; A4216; G0378; J1940; J2785

== ENCOUNTER → 2020-07-13 10:30 | Outpatient (CLI) | payer MEDICARE, SELFPAY ==
[2020-06-12 11:16] VITALS: BMI 20.1
--- NOTE | 2020-07-13 10:32 | BI_ITS ---
MAMMOGRAPHY - BILATERAL SCREENING REASON FOR EXAM: Female, 84 years old. Routine annual screening examination. PERTINENT HISTORY: Non-contributory. TECHNIQUE: Digital bilateral breast alysha (3D mammographic acquisition) in the CC and MLO projections. 2-D mediolateral oblique (MLO) and craniocaudad (CC) views of both breasts were obtained. CAD: Full Field Digital Mammography with Computer Added Detection was performed. COMPARISON: Comparison is made with prior examination dated 07/12/2019 and 07/09/2018. FINDINGS: Breast Composition: There are scattered areas of fibroglandular density. There are no dominant masses or suspicious calcifications. No other significant abnormalities are identified. There has been no significant change since the prior study. BI/SCRN MAMM (CAD)W/ALYSHA BILAT IMPRESSION: Stable bilateral screening mammogram. Yearly follow-up mammogram recommended. (A) ASSESSMENT CATEGORY: BIRADS Category 1: Negative. A letter regarding these results will be sent to the patient by the facility within 30 days. Approximately 10% of breast cancers are not detected by mammography. A normal mammogram should not delay biopsy of a clinically suspicious abnormality. [id number] Electronically Signed: Mariusz Alarcon MD at 12:27 EDT , Service support ,
== END ==
PROVIDERS: PCP Family Medicine; Referring Provider Family Medicine; Visit Provider Family Medicine
DX: Z12.31 Encounter for screening mammogram for malignant neoplasm of breast (principal)
CPT/HCPCS: 77063; 77067

== ENCOUNTER 2021-04-21 14:13 | Emergency (ER) | payer MEDICARE, SELFPAY ==
[2021-04-21] VITALS (8 sets, daily range): BP systolic 111–144; BP diastolic 73–87; PULSE 76–135; RESP 14–16; TEMP 35.9; O2SAT 96–99; BMI 20.5
--- NOTE | 2021-04-21 14:43 | CT_ITS ---
STUDY: CT BRAIN WITHOUT CONTRAST REASON FOR EXAM: Female, 85 years old. Head trauma RADIATION DOSAGE (If Supplied By Facility): CTDIvol = ( 44.99 ) mGy, DLP = ( 728.62 ) mGycm TECHNIQUE: Transaxial CT imaging of the brain was performed without administration of intravenous contrast material. Individualized dose optimization techniques were used for this CT. COMPARISON: 05/20/2017. FINDINGS: Occipital scalp soft tissue hematoma. Normal calvarium. There is mild cerebral atrophy with widening of the extra-axial spaces and ventricular dilatation. There are areas of decreased attenuation within the white matter tracts of the supratentorial brain, consistent with microvascular disease changes. Normal basal ganglia and thalami. Normal brainstem. Normal cerebellum. There is no intracranial hemorrhage. There are no findings of an acute ischemic infarction. Atherosclerotic calcifications of the cavernous internal carotid arteries and of the vertebral arteries. Normal visualized paranasal sinuses. CT/Brain/Head without Contrast IMPRESSION: 1. Chronic involutional changes of the brain. 2. No acute intracranial process. 3. Occipital scalp soft tissue hematoma. Electronically Signed: Pablo Brothers, at 15:37 EST Tel , Service support ,
--- NOTE | 2021-04-21 14:43 | EKG12_ITS ---
Test Reason : FALL Blood Pressure : / mmHG Vent. Rate : 080 BPM Atrial Rate : 083 BPM P-R Int : 000 ms QRS Dur : 076 ms QT Int : 398 ms P-R-T Axes : 000 014 050 degrees QTc Int : 459 ms Atrial fibrillation Abnormal ECG Low voltage QRS (limb leads) Confirmed by ABIOLA BOYCE, SAFIA ([id number]), news video editor SANAZ GOVEA ([id number]) on 04/24/2021 12:45:36 PM Referred By: CYNTHIA/TONJA Confirmed By:SAFIA CULVER MD
--- NOTE | 2021-04-21 14:49 | ED.VIS.FALL ---
HPI HPI - Fall History of Present Illness Chief Complaint: Fall Informant: patient Occured/Mechanism Occurred: Today and Hours Usually ambulates: Without assistance Pain/Injury Pain Location: head Current Severity: Mild Maximum Severity: Mild Associated Symptoms Associated Symptoms: Negative for Parasthesias, Weakness, Loss of function, Inability to ambulate, Loss of consciousness and Amnesia Narrative Narrative: 85-year-old female history of A. fib, CHF and CABG. Not on blood thinners. She was actually changing a furnace filter up on a chair when she pulled back and either lost her balance or something happened and she fell striking the back aspect of her head causing a laceration. She denies any LOC she denies any neck pain or other injuries. This occurred around 130 this afternoon. She denies any nausea or vomiting. She is unsure of her last tetanus. Denies any recent hospitalization or illness. Tetanus Immunization: Unknown Prior similar symptoms: No Recent Illness/Hospitalization: No PFSH PFSH Medical History (Updated 04/21/21 @ 17:[address] Kenney Carrasquillo MD) Aortic insufficiency Aortic valve disorder Ascending aortic aneurysm Atherosclerosis of coronary artery bypass graft without angina pectoris Atherosclerotic heart disease of [place] coronary artery without angina pectoris Atrial flutter Carotid bruit Chest pain Chronic diastolic (congestive) heart failure Chronic insomnia Diastolic dysfunction Essential hypertension Family history of premature coronary heart disease GERD (gastroesophageal reflux disease) Hyperlipidemia Left carotid bruit longterm use of drug Mitral valve disorder Mitral valve regurgitation Nonrheumatic mitral valve regurgitation Paroxysmal atrial fibrillation Paroxysmal atrial fibrillation Peripheral vascular disease Sinus bradycardia Thoracic aortic aneurysm Home Medications latanoprost 0.005 % eye drops 1 drp OPHTHALMIC QHS #8 ml 09/30/18 [History Last Taken 04/26/20] potassium 99 mg tablet 99 mg PO DAILY tab 04/26/19 [History Last Taken 04/26/20] calcium carb-vit M5-edlutvnxy-tulj 333 mg-200 unit-133 mg-5 mg tablet 1 tab PO DAILY 05/22/20 [History Last Taken Unknown] cholecalciferol (vitamin D3) 25 mcg (1,000 unit) tablet 25 mcg PO DAILY 05/22/20 [History Last Taken Unknown] fish, borage, flaxseed oils-omega 3,6,9 cb #1 400 mg-400 mg-400 mg cap 1 cap PO DAILY 05/22/20 [History Last Taken Unknown] vitamin B complex 1 tab PO DAILY 05/22/20 [History Last Taken Unknown] isosorbide mononitrate 60 mg tablet,extended release 24 hr 60 mg PO DAILY #90 tab 10/02/20 [Rx Last Taken Unknown] metoprolol tartrate 25 mg tablet 25 mg PO DAILY tab 12/13/20 [History Last Taken Unknown] nitroglycerin 0.4 mg sublingual tablet 0.4 mg SUBLINGUAL Q5M PRN #25 tab 03/06/21 [Rx Last Taken Unknown] furosemide 20 mg tablet 20 mg PO BID #180 tab 03/22/21 [Rx Last Taken Unknown] Allergy/AdvReac Type Severity Reaction Status Date / Time alendronate sodium Allergy Unknown Verified 04/21/21 14:15 [From Fosamax] atorvastatin calcium Allergy Unknown Verified 04/21/21 14:15 [From Lipitor] colestipol HCl Allergy Unknown Verified 04/21/21 14:15 [From Colestid] cortisone acetate Allergy Unknown Verified 04/21/21 14:15 [From Cortone] ezetimibe [From Zetia] Allergy Unknown Verified 04/21/21 14:15 gabapentin Allergy Unknown Verified 04/21/21 14:15 goserelin acetate Allergy Unknown Verified 04/21/21 14:15 [From Zoladex] nabumetone Allergy Other Verified 04/21/21 14:15 paroxetine HCl [From Paxil] Allergy Unknown Verified 04/21/21 14:15 rosuvastatin calcium Allergy Unknown Verified 04/21/21 14:15 [From Crestor] sertraline HCl [From Zoloft] Allergy Unknown Verified 04/21/21 14:15 venlafaxine HCl Allergy Unknown Verified 04/21/21 14:15 [From Effexor] hydrocodone AdvReac Intermediate Unknown Verified 04/21/21 14:15 acetaminophen [From Vicodin] AdvReac KEEPS ME Verified 04/21/21 14:15 AWAKE carvedilol AdvReac Unknown Verified 04/21/21 14:15 hydrocodone bitartrate AdvReac KEEPS ME Verified 04/21/21 14:15 [From Vicodin] AWAKE venlafaxine AdvReac Severe Unknown Uncoded 04/21/21 14:15 Family History Brother CAD (coronary artery disease) Diabetes Myocardial infarction Father CAD (coronary artery disease) Other Family history of premature coronary heart disease Surgical History Aortocoronary bypass status (~2009) History of back surgery History of knee replacement, total History of percutaneous transluminal coronary angioplasty History of right shoulder replacement History of total hysterectomy Presence of stent in coronary artery (~11/13/11) Social History Smoking Status: Never smoker alcohol intake: never substance use type: does not use caffeine: Yes Type: coffee Number of servings: 2 what type of physical activity do you participate in: none seatbelt use: always do you feel safe at home: Yes ROS ROS ED ROS Narrative Denies any recent illness. Review of Systems ROS Unobtainable: Denies due to encephalopathy Constitutional Constitutional ED: Denies fever(s) or subjective Eyes Eyes: Denies change in vision ENT ENT ED: Denies ear pain or sore throat Cardiovascular Cardiovascular: Denies chest pain Respiratory/Chest Respiratory/Chest: Denies cough or dyspnea Gastrointestinal Gastrointestinal: Denies abdominal pain, diarrhea, nausea or vomiting Genitourinary Genitourinary ED: Denies dysuria Musculoskeletal Musculoskeletal: Denies myalgias Integumentary Denies rash Neurologic Neurologic: Denies headache(s) Psychiatric Psychiatric: Denies depression Endocrine Endocrinology: Denies polyuria Hematologic/Lymphatic Hematologic/Lymphatic: Denies easy bruising Allergic/Immunologic Allergic/Immunologic ED: Denies urticaria EXAM Physical Exam Narrative Exam Narrative: 85-year-old female no acute distress but on the monitor she is in A. fib RVR rate about 130. H EENT exam. Relate no facial trauma. Posterior scalp she is in with Germaine with some blood on the back of her hair. Will clean it off and see if there is anything needs to be sewn. C-spine nontender. Trachea midline. Lungs clear to auscultation. Heart A. fib rate about 130 no murmur. Chest wall and ribs nontender. Abdomen soft nontender. Pelvic girdle intact. 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 Normal dorsi plantar flexion she can flex extend both hips knees and ankles. Back spine nontender ribs nontender. Neurologically she is awake and alert with no focal motor deficits. Const Vital Signs: 04/21/21 14:15 04/21/21 14:25 04/21/21 14:26 Temperature 96.7 F L Temperature Source Temporal Pulse Rate 135 H 125 H Respiratory Rate 16 14 Respiratory Effort Normal Non-Labored Respiratory Depth Normal Respiratory Pattern Normal Blood Pressure 144/84 H 136/87 H Blood Pressure Mean 104 103 Pulse Ox 99 97 98 Oxygen Delivery Method Room Air Room Air Room Air 04/21/21 14:49 04/21/21 15:08 04/21/21 15:10 Temperature Temperature Source Pulse Rate 115 H 82 Respiratory Rate 14 Respiratory Effort Respiratory Depth Respiratory Pattern Blood Pressure 130/83 H Blood Pressure Mean 98 Pulse Ox 97 98 Oxygen Delivery Method Room Air Room Air 04/21/21 17:11 Temperature Temperature Source Pulse Rate 76 Respiratory Rate 16 Respiratory Effort Respiratory Depth Respiratory Pattern Blood Pressure 111/73 Blood Pressure Mean 85 Pulse Ox 96 Oxygen Delivery Method Room Air Positive well nourished and well developed; Negative for obese, cachectic, contractures or unkempt General Appearance ED: well developed and NAD; Negative for unkempt, cachectic or contractures Nutritional Appearance: Negative for cachectic or obese HEENT Reports normocephalic HEENT Narrative: Hematoma and laceration posterior scalp. Small amount of blood. trauma and tenderness; Negative for atraumatic Eyes PERRL and EOMs intact bilaterally General Eye ED: Negative for pale conjunctiva or scleral icterus Neck full ROM, no lymphadenopathy and supple General: Negative for tenderness Chest Wall inspection of chest normal and palpation of chest normal Resp normal respiratory effort, no retractions and clear to auscultation bilaterally Auscultation: Negative for rales, rhonchi or wheezes Cardio no murmurs; Negative for regular rate or regular rhythm Cardio Narrative: A. fib with rapid ventricular rate approximately 130. Rate: tachycardic GI non-tender, non-distended and no masses Auscultation: normoactive bowel sounds Palpation: soft; Negative for guarding or rebound tenderness present Back/Spine no CVA tenderness General Back: Negative for CVA tenderness Cervical Spine: Negative for cervical spine tenderness Thoracic Spine / Upper Back: Negative for thoracic spinal tenderness Lumbar Spine / Lower Back: Negative for lumbar spinal tenderness or paraspinal muscle tenderness Extremity normal to inspection, full ROM and normal capillary refill Neuro oriented x3, moves all extremities and no focal motor deficits [facility] Coma Scale: document GCS findings Spontaneous Obeys Commands Oriented 15 Sensorium / Orientation: alert, oriented to person, oriented to place and oriented to time; Negative for orientation impaired, confused, lethargic or stuporous Motor Exam: strength 5/5 throughout Psych mental status grossly normal and thought process normal Appearance: Negative for unkempt Attitude: No agitated Mood & Affect: Negative for depressed, anxious or tearful Skin Skin Narrative: Posterior scalp hematoma and suspected laceration. Lesions: no lesions Rashes: no rashes Trauma: laceration MDM MDM MDM Narrative Medical decision making narrative: 85-year-old female who fell off a chair while changing a furnace filter has a scalp laceration that will need further evaluation. We will CAT scan her head. She also is a known history of A. fib and is in A. fib RVR currently will undergo cardiac work-up. She also be treated with Cardizem for her A. fib RVR. Repeat exam patient is doing well at 5:20 PM. Her heart rates in the 70s and 80s. She remains in A. fib but well controlled after the 1 dose of IV Cardizem. She is awake alert moving everything. She and I discussed her test results and CAT scan. Nurses are cleaning off her scalp to see if there is anything I need to repair. Nurses cleaned out the back of the patient's head Nothing do so at this time. There is no active bleeding. There is a hematoma which was also seen on CAT scan and exam. The wound does not gape or need closed. I discussed with patient home-going instructions and follow-up with her primary care physician. Lab Data Attestation: I reviewed the patient's lab results. Lab results narrative: CBC showed a white count of 5. Hemoglobin of 10.7. Platelets 261. Electrolytes gap of 8 BUN of 22 creatinine 1. Matheus 221. Troponin XI. Labs: Laboratory Results - last 24 hr 04/21/21 04/21/21 14:51 14:51 WBC 5.9 RBC 3.34 L Hgb 10.7 L Hct 32.7 L MCV 97.9 MCH 32.0 MCHC 32.7 RDW Std Deviation 58.6 H RDW Coeff of [place] 16.5 H Plt Count 261 MPV 9.6 Immature Gran % (Auto) 0.200 Neut % (Auto) 68.3 Lymph % (Auto) 18.3 L [place] % (Auto) 8.5 Eos % (Auto) 3.8 Baso % (Auto) 0.9 Absolute Neuts (auto) 4.0 Absolute Lymphs (auto) 1.07 Nucleated RBC % 0.5 Sodium 136 Potassium 3.9 Chloride 100 Carbon Dioxide 28.0 Anion Gap 8 BUN 22 H Creatinine 1.09 H Estim Creat Clear Calc 29.30 Est GFR (MDRD) Af Amer 61 Est GFR (MDRD) Non-Af 51 L BUN/Creatinine Ratio 20.2 H Glucose 221 H Calcium 9.4 Troponin I High Sens 11 Radiography Diagnostic Testing: Clinical Impression(s) from Imaging Studies Brain CT 04/21/21 14:43 IMPRESSION: 1. Chronic involutional changes of the brain. 2. No acute intracranial process. 3. Occipital scalp soft tissue hematoma. Electronically Signed: Pablo Brothers, at 15:37 EST Tel , Service support , Chest X-Ray 04/21/21 15:20 IMPRESSION: Cardiomegaly. No active pulmonary disease. Electronically Signed: Pablo Brothers, at 15:47 EST Tel , Service support , Chest x-ray, portable, single view showed no acute abnormality. Chronic changes. Borderline cardiomegaly. Right shoulder prosthesis. Interpreted by myself and the radiologist. CT of the brain is read by the radiologist reviewed by me showed a posterior occipital hematoma but no acute intracranial abnormality. Rhythm Strip Rhythm Strip: A-fib Rate: 80 Ectopy: None EKG Initial EKG: Attestation: I personally reviewed and interpreted this EKG as follows: Interpretation: Atrial Fibrillation Comments: Atrial fibrillation rate of 80 no acute signs of PR or ischemia. EKG was done after she was given a dose of IV Cardizem. Currently her rate is controlled. Discharge Plan Triage Chief Complaint: Fall ED Provider: Kenney Carrasquillo Dx/Rx/DC Orders Clinical Impression: Fall, Atrial fibrillation with rapid ventricular response, History of atrial fibrillation, Head injury Instructions: ED AFIB, ED Head Injury (Adult) Prescriptions: No Action latanoprost 0.005 % drops 1 drp OPHTHALMIC QHS Qty: 8 RF: 0 potassium 99 mg tablet 99 mg PO DAILY RF: 0 cholecalciferol (vitamin D3) 25 mcg (1,000 unit) tablet 25 mcg PO DAILY RF: 0 vitamin B complex Tablet 1 tab PO DAILY RF: 0 fish,bora,flax oils-om3,6,9no1 400-400-400 mg capsule 1 cap PO DAILY RF: 0 calcium carb-D3-mag hcl12-ulxz [id number] gm-ucde-fv-mg tablet 1 tab PO DAILY RF: 0 metoprolol tartrate 25 mg tablet 25 mg PO DAILY RF: 0 nitroglycerin 0.4 mg tablet, sublingual 0.4 mg SUBLINGUAL Q5M PRN (Reason: Chest Pain) Qty: 25 RF: 3 isosorbide mononitrate 60 mg tablet extended release 24 hr 60 mg PO DAILY Qty: 90 RF: 3 furosemide 20 mg tablet 20 mg PO BID Qty: 180 RF: 3 Primary Care Provider: Rachel Bernabe Referrals: Rachel Bernabe DO [Primary Care Provider] - 3-5 Days Activity Restrictions/Additional Instructions: Ice to your scalp. Tylenol for pain. Return if severe headache, vomiting or feeling worse. Follow-up with your doctor to ensure your heart rate is remaining controlled between 60 and 100. Continue your normal medications. Disposition Disposition: Home, Self Care
[2021-04-21 15:00] LABS: Absolute Lymphocyte Count 1.07 X10^3/uL (0.83-4.51); Basophil# 0.05 X10^3/uL; Basophil% 0.9 % (0-1); Eosinophil# 0.22 X10^3/uL; Eosinophils% 3.8 % (0-5); Hematocrit 32.7 % (37-47); Hemoglobin 10.7 g/dL (12.0-15.0); Lymphocyte # 1.07 X10^3/ul (0.83-4.51); Lymphocyte % 18.3 % (19-41); Mean Corp Hgb Conc 32.7 g/dL (32-36); Mean Corpuscular Volume 97.9 fL (81-99); Mean Platelet Vol. 9.6 fl (6.2-12.0); Monocyte% 8.5 % (0-10); NRBC Flagged by Analyzer 0.5 % (0-5); Neutrophil % 68.3 % (47-70); Platelet Count 261 K/mm3 (150-450); RBC Distribution Width CV 16.5 % (11.6-14.6); RBC Distribution Width SD 58.6 fl (35.1-43.9); Red Blood Count 3.34 M/mm3 (4.2-5.4); White Blood Count 5.9 K/mm3 (4.4-11.0)
[2021-04-21] MEDS: dilTIAZem 25 MG/5 ML Vial 20 MG IV BOLUS (15:06)
[2021-04-21] MEDS: Lidocaine 1% (20 ml mdv) 20 ML Vial 10 ML INFILT (15:07)
[2021-04-21 15:19] LABS: Anion Gap 8 (5-15); BUN 22 mg/dL (7-18); BUN/Creat Ratio 20.2 RATIO (10-20); Calcium,Total 9.4 mg/dL (8.5-10.1); Chloride 100 mmol/L (98-107); Creatinine, Serum 1.09 mg/dL (0.55-1.02); EST Glomerular Filtration Rate 51 mL/min (>60); Est Glom Filt Rate - Afr Amer 61 mL/min (>60); Glucose 221 mg/dL (74-106); Potassium 3.9 mmol/L (3.5-5.1); Sodium Level 136 mmol/L (136-145); Troponin-I HS 11 pg/mL (3.0-54.0)
--- NOTE | 2021-04-21 15:20 | RAD_ITS ---
STUDY: X-RAY CHEST REASON FOR EXAM: Female, 85 years old. Chest pain TECHNIQUE: Single AP portable view of the chest. COMPARISON: 04/27/2020. FINDINGS: Slightly prominent interstitial markings but no focal infiltrate is seen. There is no demonstrated pleural abnormality. Sternal cerclage wires and vascular clips are present from a prior sternotomy and coronary artery bypass graft procedure (CABG). Mild enlargement of the cardiac silhouette. Normal mediastinum and alexus. Normal visualized pulmonary arteries. There is atherosclerotic calcification of the aortic arch with tortuosity. Right shoulder arthroplasty. There is no demonstrated abnormality of the visualized soft tissue structures of the upper abdomen. RAD/Chest 1 View (Portable) IMPRESSION: Cardiomegaly. No active pulmonary disease. Electronically Signed: Pablo Brothers, at 15:47 EST Tel , Service support ,
== END 2021-04-21 17:45 | disposition home or self-care (01) ==
PROVIDERS: Emergency Provider Emergency Medicine; PCP Family Medicine; Visit Provider Emergency Medicine
DX: S00.03XA Contusion of scalp, initial encounter (principal); I11.0 Hypertensive heart disease with heart failure; I50.32 Chronic diastolic (congestive) heart failure; I73.9 Peripheral vascular disease, unspecified; I48.91 Unspecified atrial fibrillation; I48.0 Paroxysmal atrial fibrillation; S01.01XA Laceration without foreign body of scalp, initial encounter; W07.XXXA Fall from chair, initial encounter; I25.10 Atherosclerotic heart disease of native coronary artery without angina pectoris; Y93.9 Activity, unspecified; Y92.9 Unspecified place or not applicable; K21.9 Gastro-esophageal reflux disease without esophagitis; Z95.1 Presence of aortocoronary bypass graft; I34.0 Nonrheumatic mitral (valve) insufficiency; Z79.899 Other long term (current) drug therapy
CPT/HCPCS: 70450; 71045; 80048; 84484; 85025; 93005; 99285; A4216

== ENCOUNTER 2021-05-02 15:34 | Outpatient (CLI) | payer MEDICARE, SELFPAY ==
--- NOTE | 2021-05-02 | LES_PTH ---
PATIENT: LANNY DIALLO I LOC: [facility] #:[id number] AGE/SX: 85/F ROOM: RE05/02/[address]: Dr. James Resendiz MD : [id number] BED: DIS: 05/02/2021 SPEC #: [id number] RECD: 05/02/21 15:26 STATUS: JENNIE BENNY #: [id number] JOSHUA: 05/02/21 00:[address]: James Resendiz DEPT: SURGICAL PATHOLOGY RECD BY: Stevo Escobedo ENTERED: 05/03/21 12:22 SP TYPE: Lesion OTHR DR: Dr. Rachel Bernabe, DO Tissues: Skin of scalp, NOS Procedures: Surgery Specimen Level IV HEADER OPERATION: Excision scalp lesion PRE-OP DIAGNOSIS: Uncertain neoplasm scalp TISSUE SUBMITTED: Scalp tissue MICROSCOPIC DIAGNOSIS Skin lesion of scalp, excision: Basal cell carcinoma, superficial nodular, cystic and focally ulcerated, completely excised. Solar elastosis. Focal dystrophic microcalcifications. AM:leonardo 05/04/2021 MICROSCOPIC DESCRIPTION Slides are reviewed. GROSS DESCRIPTION Received in fixative is one container labeled with the patient's name and designated scalp. The specimen consists of a zee-white skin ellipse measuring 3.5 x 1.5 cm and up to 0.2 cm in thickness. There is a raised zee lesion on the surface measuring 1.2 x 0.7 cm. The specimen is inked, serially sectioned and submitted entirely in two cassettes. Cassette 1 also contains the tip of the skin ellipse. / SJ:leonardo 05/03/2021 TC:0 CPT: 75081
== END 2021-05-02 23:59 | disposition short-term general hospital (02) ==
LOC: LABSPEC 15:35
PROVIDERS: PCP Family Medicine; Visit Provider Surgery
DX: D48.5 Neoplasm of uncertain behavior of skin (principal)
CPT/HCPCS: 88305

== ENCOUNTER 2021-07-16 07:36 | Outpatient (CLI) | payer MEDICARE, SELFPAY ==
--- NOTE | 2021-07-16 07:40 | BI_ITS ---
MAMMOGRAPHY - BILATERAL SCREENING REASON FOR EXAM: Female, 85 years old. Routine annual screening examination. PERTINENT HISTORY: Non-contributory. TECHNIQUE: Digital bilateral breast alysha (3D mammographic acquisition) in the CC and MLO projections. 2-D mediolateral oblique (MLO) and craniocaudad (CC) views of both breasts were obtained. CAD: Full Field Digital Mammography with Computer Added Detection was performed. COMPARISON: Comparison is made with prior study dated 07/13/2020 and 07/12/2019. FINDINGS: Breast Composition: There are scattered areas of fibroglandular density. There are no dominant masses or suspicious calcifications. No other significant abnormalities are identified. There has been no significant change since the prior study. BI/SCRN MAMM (CAD)W/ALYSHA BILAT IMPRESSION: Stable bilateral screening mammogram. Yearly follow-up mammogram recommended. (A) ASSESSMENT CATEGORY: BIRADS Category 1: Negative. A letter regarding these results will be sent to the patient by the facility within 30 days. Approximately 10% of breast cancers are not detected by mammography. A normal mammogram should not delay biopsy of a clinically suspicious abnormality. [id number] Electronically Signed: Mariusz Alarcon MD at 8:42 EDT ,
== END 2021-07-16 23:59 | disposition home or self-care (01) ==
LOC: OPBI 07:38
PROVIDERS: PCP Family Medicine; Visit Provider Family Medicine
DX: Z12.31 Encounter for screening mammogram for malignant neoplasm of breast (principal)
CPT/HCPCS: 77063; 77067

== ENCOUNTER 2022-07-13 08:22 | Observation (INO) | payer MEDICARE, SELFPAY ==
[2022-07-13] VITALS (11 sets, daily range): BP systolic 140–173; BP diastolic 68–100; PULSE 74–130; RESP 15–20; TEMP 36.2–36.9; O2SAT 90–99; BMI 21.2; BMI 20.9
--- NOTE | 2022-07-13 08:34 | EKG12_ITS ---
Test Reason : CP Blood Pressure : / mmHG Vent. Rate : 118 BPM Atrial Rate : 000 BPM P-R Int : 000 ms QRS Dur : 076 ms QT Int : 316 ms P-R-T Axes : 000 058 129 degrees QTc Int : 442 ms Atrial fibrillation with rapid ventricular response Abnormal ECG Confirmed by COLIN BOYCE, RADHA ([id number]), department editor SANAZ GOVEA ([id number]) on 07/15/2022 11:15:06 AM Referred By: DAVIDE Confirmed By:KEELEY SHAW MD
--- NOTE | 2022-07-13 08:34 | RAD_ITS ---
STUDY: X-RAY CHEST REASON FOR EXAM: Female, 86 years old. Chest pain TECHNIQUE: Frontal view of the chest COMPARISON: 04/21/2021 FINDINGS: There is a small right pleural effusion with overlying atelectasis. The left lung is clear. There is no pneumothorax. The heart is stable in size. The patient is status post sternotomy. There are stable postsurgical changes in the right shoulder. RAD/Chest 1 View (Portable) IMPRESSION: Small right pleural effusion with overlying atelectasis. Electronically Signed: Andrade Raza MD at 9:28 EDT ,
--- NOTE | 2022-07-13 08:58 | ED.VIS.CHEST ---
HPI History of Present Illness Chief Complaint: Chest Pain Narrative Narrative: 86-year-old female with history of A-fib, CHF, hypertension presenting with chest tightness which she states has been coming and going for 2 to 3 days. She states that she is not anticoagulated. 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 She denied fever, chills, cough. No nausea or vomiting. She does not complain of dizziness or lightheadedness. She states she does feel short of breath but its not new. 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 Mitral valve disorder Mitral valve regurgitation Nonrheumatic mitral valve regurgitation Paroxysmal atrial fibrillation Paroxysmal atrial fibrillation Peripheral vascular disease Sinus bradycardia Thoracic aortic aneurysm Home Medications latanoprost 0.005 % eye drops 1 drp ophthalmic (eye) [facility] eye health #8 mL 09/30/18 [History Last Taken 04/26/20] potassium 99 mg tablet 99 mg PO DAILY supplement 04/26/19 [History Last Taken 04/26/20] calcium carb-vit [id number]-yxae 333 mg-200 unit-133 mg-5 mg tablet 1 tab PO DAILY 05/22/20 [History Last Taken Unknown] cholecalciferol (vitamin D3) 25 mcg (1,000 unit) tablet 25 mcg PO DAILY 05/22/20 [History Last Taken Unknown] fish, borage, flaxseed oils-omega 3,6,9 cb #1 400 mg-400 mg-400 mg cap 1 cap PO DAILY 05/22/20 [History Last Taken Unknown] nitroglycerin 0.4 mg sublingual tablet 0.4 mg sublingual Q5M PRN Chest Pain #25 tabs 03/06/21 [Rx Last Taken Unknown] isosorbide mononitrate 60 mg tablet,extended release 24 hr 60 mg PO DAILY chest pain #90 tabs 10/03/21 [Rx Last Taken Unknown] metoprolol tartrate 25 mg tablet 25 mg PO DAILY #90 tabs 11/14/21 [Rx Last Taken Unknown] paroxetine HCl 10 mg tablet 10 mg PO DAILY 12/20/21 [History Last Taken Unknown] turmeric 400 mg capsule 400 mg PO DAILY 12/20/21 [History Last Taken Unknown] furosemide 20 mg tablet 20 mg PO BID water pill #180 tabs 04/10/22 [Rx Last Taken Unknown] Allergy/AdvReac Type Severity Reaction Status Date / Time alendronate sodium Allergy Unknown Verified 07/13/22 08:32 [From Fosamax] atorvastatin calcium Allergy Unknown Verified 07/13/22 08:32 [From Lipitor] colestipol HCl Allergy Unknown Verified 07/13/22 08:32 [From Colestid] cortisone acetate Allergy Unknown Verified 07/13/22 08:32 [From Cortone] ezetimibe [From Zetia] Allergy Unknown Verified 07/13/22 08:32 gabapentin Allergy Unknown Verified 07/13/22 08:32 goserelin acetate Allergy Unknown Verified 07/13/22 08:32 [From Zoladex] nabumetone Allergy Other Verified 07/13/22 08:32 paroxetine HCl [From Paxil] Allergy Unknown Verified 07/13/22 08:32 rosuvastatin calcium Allergy Unknown Verified 07/13/22 08:32 [From Crestor] sertraline HCl [From Zoloft] Allergy Unknown Verified 07/13/22 08:32 venlafaxine HCl Allergy Unknown Verified 07/13/22 08:32 [From Effexor] carvedilol AdvReac Unknown Verified 07/13/22 08:32 hydrocodone bitartrate AdvReac KEEPS ME Verified 07/13/22 08:32 [From Vicodin] AWAKE Family History Brother CAD (coronary artery disease) Diabetes Myocardial infarction Father CAD (coronary artery disease) Other Family history of premature coronary heart disease Surgical History Aortocoronary bypass status (~2009) History of back surgery History of knee replacement, total History of percutaneous transluminal coronary angioplasty History of right shoulder replacement History of total hysterectomy Presence of stent in coronary artery (~11/13/11) Social History Smoking Status: Never smoker alcohol intake: never substance use type: does not use caffeine: Yes Type: coffee Number of servings: 2 what type of physical activity do you participate in: none seatbelt use: always do you feel safe at home: Yes ROS ROS ED Constitutional Constitutional ED: Denies chills or fever(s) Eyes Eyes: Denies change in vision or diplopia ENT ENT ED: Denies rhinorrhea or sore throat Cardiovascular Cardiovascular: Reports as per HPI Respiratory/Chest Respiratory/Chest: Reports dyspnea and dyspnea on exertion; Denies cough Gastrointestinal Gastrointestinal: Denies abdominal pain, nausea or vomiting Genitourinary Genitourinary ED: Denies dysuria or hematuria Musculoskeletal Musculoskeletal: Denies arthralgias Integumentary Denies abscess Neurologic Neurologic: Denies headache(s) or paresthesias Psychiatric Psychiatric: Denies anxiety or depression EXAM Physical Exam Const Vital Signs: 07/13/22 08:25 07/13/22 08:30 07/13/22 08:35 Temperature 97.2 F L Temperature Source Temporal Pulse Rate 114 H Respiratory Rate 16 Respiratory Effort Normal Non-Labored Blood Pressure 173/98 H Blood Pressure Mean 123 Pulse Ox 97 94 Oxygen Delivery Method Room Air Room Air Oxygen Flow Rate (L/min) 07/13/22 09:16 07/13/22 11:01 07/13/22 12:00 Temperature Temperature Source Pulse Rate 74 79 92 Respiratory Rate 15 18 18 Respiratory Effort Blood Pressure 146/100 H 145/77 H 147/68 H Blood Pressure Mean 115 99 94 Pulse Ox 95 91 98 Oxygen Delivery Method Room Air Nasal Cannula Nasal Cannula Oxygen Flow Rate (L/min) 2 Positive well nourished General Appearance ED: NAD HEENT Reports moist mucous membranes normocephalic and atraumatic Eyes PERRL Resp normal respiratory effort and clear to auscultation bilaterally Effort and Inspection: Negative for respiratory distress Cardio Rate: tachycardic Rhythm: abnormal rhythm irregularly irregular Neuro oriented x3 and CN's II-XII intact bilaterally Sensorium / Orientation: awake and alert Psych mental status grossly normal Skin no rashes or lesions noted Heart Score History: Slightly/Non-Suspicious ECG: Normal Age: >/= 65 years Risk Factors: >/= 3 Risk Factors or History of CAD Troponin: </= Normal Limit Score: 4 MDM MDM MDM Narrative Medical decision making narrative: Patient presenting with chest pain which has been intermittent for 2 to 3 days. Differential includes but not limited to ACS, A-fib, a flutter, dehydration, anemia, electrolyte abnormality, dehydration, pneumonia. EKG was obtained which shows atrial fibrillation at a rate of 118 bpm on my interpretation. Patient given 20 mg of Cardizem and her heart rate responded and repeat EKG on my interpretation shows A-fib at a ventricular of 60 bpm without evidence of ischemic change. Chest x-ray on my interpretation shows a small pleural effusion on the right. Thus far patient 95% to 97% on room air and not requiring any oxygen. Patient CBC shows normal white blood cell count of 6.8. Hemoglobin 11.2 and therefore stable. Platelets 258. BMP was obtained and shows creatinine 1.07 which was previously 1.09 so there is not much interval change. Potassium slightly low at 3.1 which was repleted orally. Glucose 145 without anion gap. Patient's D-dimer returned at 1.07. CTA of the chest was negative for PE or dissection but did show pleural effusions and evidence of CHF. In the interim patient was ambulated and her pulse ox dropped to 84 on room air. I discussed with her that she would likely need to stay in the hospital at this with low pulse ox and evidence of CHF. High-sensitivity troponin was initially 18 and delta troponin was 25. There is no significant interval change. She stated that she would have to call her sons to take care of pets that she is caring for for her daughter. Patient discussed with hospitalist for admission. She was given 40 of Lasix. Impression: 1. Hypoxia 2. CHF 3. A-fib with RVR 4. Chest pain Lab Data Labs: Laboratory Results - last 24 hr 07/13/22 07/13/22 07/13/22 08:38 08:38 08:38 WBC 6.8 RBC 3.46 L Hgb 11.2 L Hct 34.9 L MCV 100.9 H MCH 32.4 H MCHC 32.1 RDW Std Deviation 66.4 H RDW Coeff of Zuleima 18.2 H Plt Count 258 MPV 9.5 Immature Gran % (Auto) 0.400 Neut % (Auto) 71.8 H Lymph % (Auto) 17.4 L [place] % (Auto) 8.5 Eos % (Auto) 1.2 Baso % (Auto) 0.7 Absolute Neuts (auto) 4.9 Absolute Lymphs (auto) 1.18 Nucleated RBC % 0 Differential Comment SCANNED Anisocytosis 2+ Microcytosis 1+ Macrocytosis 1+ D-Dimer Quant (PE/DVT) 1.07 H* Sodium 138 Potassium 3.1 L Chloride 103 Carbon Dioxide 28.0 Anion Gap 7 BUN 19 H Creatinine 1.07 H Estim Creat Clear Calc 29.30 Est GFR (MDRD) Af Amer 62 Est GFR (MDRD) Non-Af 51 L BUN/Creatinine Ratio 17.8 Glucose 145 H Calcium 9.4 Troponin I High Sens 18 07/13/22 11:00 WBC RBC Hgb Hct MCV MCH MCHC RDW Std Deviation RDW Coeff of Zuleima Plt Count MPV Immature Gran % (Auto) Neut % (Auto) Lymph % (Auto) [place] % (Auto) Eos % (Auto) Baso % (Auto) Absolute Neuts (auto) Absolute Lymphs (auto) Nucleated RBC % Differential Comment Anisocytosis Microcytosis Macrocytosis D-Dimer Quant (PE/DVT) Sodium Potassium Chloride Carbon Dioxide Anion Gap BUN Creatinine Estim Creat Clear Calc Est GFR (MDRD) Af Amer Est GFR (MDRD) Non-Af BUN/Creatinine Ratio Glucose Calcium Troponin I High Sens 25 Radiography Diagnostic Testing: Clinical Impression(s) from Imaging Studies Chest X-Ray 07/13/22 08:34 IMPRESSION: Small right pleural effusion with overlying atelectasis. Electronically Signed: Andrade Raza MD at 9:28 EDT , Chest CTA 07/13/22 09:44 IMPRESSION: No pulmonary embolus. No thoracic aortic aneurysm. The contrast bolus is insufficient to exclude thoracic aortic dissection. Moderate right pleural effusion and small left pleural effusion with overlying atelectasis. Mild pulmonary vascular congestion. No pulmonary infiltrate. Cardiomegaly with findings suggesting right heart failure. Status post sternotomy. Electronically Signed: Andrade Raza MD at 10:46 EDT , Discharge Plan Triage Chief Complaint: Chest Pain ED Provider: Jeramie Swartz Dx/Rx/DC Orders Prescriptions: No Action latanoprost 0.005 % drops 1 drp OPHTHALMIC QHS Qty: 8 Label Comments: instill 1 drop into both eyes every night Rx Instructions: 1 drop each eye potassium 99 mg tablet 99 mg PO DAILY cholecalciferol (vitamin D3) 25 mcg (1,000 unit) tablet 25 mcg PO DAILY fish,bora,flax oils-om3,6,9no1 400-400-400 mg capsule 1 cap PO DAILY calcium carb-D3-mag [phone] bd-hppl-ik-mg tablet 1 tab PO DAILY Rx Instructions: administer with a meal nitroglycerin 0.4 mg tablet, sublingual 0.4 mg SUBLINGUAL Q5M PRN (Reason: Chest Pain) Qty: 25 3RF paroxetine HCl 10 mg tablet 10 mg PO DAILY turmeric 400 mg capsule 400 mg PO DAILY isosorbide mononitrate 60 mg tablet extended release 24 hr 60 mg PO DAILY Qty: 90 3RF metoprolol tartrate 25 mg tablet 25 mg PO DAILY Qty: 90 3RF Rx Instructions: Hold for heart less than 60 or systolic blood pressure less than 100 mmHg or dizziness furosemide 20 mg tablet 20 mg PO BID Qty: 180 3RF Primary Care Provider: Rachel Bernabe Referrals: Rachel Bernabe DO [Primary Care Provider] -
[2022-07-13 08:59] LABS: Absolute Lymphocyte Count 1.18 X10^3/uL (0.83-4.51); Absolute Neutrophil Count 4.9 X10^3/uL (2.0-7.7); Basophil# 0.05 X10^3/uL; Basophil% 0.7 % (0-1); Eosinophil# 0.08 X10^3/uL; Eosinophils% 1.2 % (0-5); Hematocrit 34.9 % (37-47); Hemoglobin 11.2 g/dL (12.0-15.0); Lymphocyte # 1.18 X10^3/ul (0.83-4.51); Lymphocyte % 17.4 % (19-41); Mean Corp Hgb Conc 32.1 g/dL (32-36); Mean Corpuscular Hgb 32.4 pg (27.0-32.0); Mean Corpuscular Volume 100.9 fL (81-99); Mean Platelet Vol. 9.5 fl (6.2-12.0); Monocyte# 0.58 X10^3/uL; Monocyte% 8.5 % (0-10); NRBC Flagged by Analyzer 0 % (0-5); Neutrophil # 4.87 X10^3/uL (2.7-7.7); Neutrophil % 71.8 % (47-70); POSITIVE MORPHOLOGY YES; Platelet Count 258 K/mm3 (150-450); RBC Distribution Width CV 18.2 % (11.6-14.6); RBC Distribution Width SD 66.4 fl (35.1-43.9); Red Blood Count 3.46 M/mm3 (4.2-5.4); White Blood Count 6.8 K/mm3 (4.4-11.0)
[2022-07-13 09:06] LABS: Anion Gap 7 (5-15); BUN 19 mg/dL (7-18); BUN/Creat Ratio 17.8 RATIO (10-20); Calcium,Total 9.4 mg/dL (8.5-10.1); Chloride 103 mmol/L (98-107); Creatinine, Serum 1.07 mg/dL (0.55-1.02); EST Glomerular Filtration Rate 51 mL/min (>60); Est Glom Filt Rate - Afr Amer 62 mL/min (>60); Glucose 145 mg/dL (74-106); Potassium 3.1 mmol/L (3.5-5.1); Sodium Level 138 mmol/L (136-145); Troponin-I HS (w/2H Reflex) 18 pg/mL (3.0-54.0)
[2022-07-13 09:10] LABS: Differential Indicated SCAN CRITERIA MET
[2022-07-13] MEDS: Potassium Chloride Oral Tablet 20 MEQ 40 MEQ PO (09:13)
[2022-07-13] MEDS: dilTIAZem 25 MG/5 ML Vial 20 MG IV BOLUS (09:13)
--- NOTE | 2022-07-13 09:40 | EKG12_ITS ---
Test Reason : REPEAT-RHYTHM CHANGE Blood Pressure : / mmHG Vent. Rate : 060 BPM Atrial Rate : 000 BPM P-R Int : 000 ms QRS Dur : 080 ms QT Int : 452 ms P-R-T Axes : 000 032 116 degrees QTc Int : 452 ms Atrial fibrillation Nonspecific ST and T wave abnormality Abnormal ECG Confirmed by COLIN BOYCE, RADHA ([id number]), book editor SANAZ GOVEA ([id number]) on 07/15/2022 11:14:47 AM Referred By: Confirmed By:KEELEY SHAW MD
[2022-07-13 09:43] LABS: D-Dimer Quantitative (DVT/PE) 1.07 FEU/ug/m (0.27-0.49)
--- NOTE | 2022-07-13 09:44 | CT_ITS ---
STUDY: CTA CHEST REASON FOR EXAM: Female, 86 years old. Chest pain RADIATION DOSAGE (If Supplied By Facility): CTDIvol = ( 13.54 ) mGy, DLP = ( 344.52 ) mGycm TECHNIQUE: The examination was performed with the intravenous administration of IV 75mL Isovue-370. Post-processing of the angiographic images was performed, with multiplanar reformation and 3D reconstruction. Individualized dose optimization techniques were used for this CT. COMPARISON: None. FINDINGS: There is a small left pleural effusion and moderate right pleural effusion with overlying atelectasis. There are mild congestive changes noted. There are no pulmonary infiltrates. There is no pneumothorax. There is no pulmonary embolus. There is no thoracic aortic aneurysm. The contrast bolus is insufficient to exclude thoracic aortic dissection. The heart is enlarged. There is no pericardial effusion. The patient is status post sternotomy and coronary artery bypass. Images through the upper abdomen demonstrate reflux of contrast into the hepatic veins and IVC, suggesting right heart failure. There are no destructive osseous lesions. CT/CTA Chest W/WO Contrast IMPRESSION: No pulmonary embolus. No thoracic aortic aneurysm. The contrast bolus is insufficient to exclude thoracic aortic dissection. Moderate right pleural effusion and small left pleural effusion with overlying atelectasis. Mild pulmonary vascular congestion. No pulmonary infiltrate. Cardiomegaly with findings suggesting right heart failure. Status post sternotomy. Electronically Signed: Andrade Raza MD at 10:46 EDT ,
[2022-07-13 09:53] LABS: Anisocytosis 2+; Differential Comment SCANNED; Macrocytosis 1+; Microcytosis 1+
[2022-07-13 10:42] LABS: Reflex Troponin-HS? (from REC) Y
[2022-07-13 11:21] LABS: Troponin-I HS 25 pg/mL (3.0-54.0)
--- NOTE | 2022-07-13 13:10 | HP.PCM.HOS_ITS ---
[facility] - General General Date of Service: 07/13/22 Chief Complaint: shortness of breath. [facility] Narrative LANNY DIALLO, is a 86 F who presents with shortness of breath. Patient was found to be in A-fib with RVR. Patient received one-time dose of 20 g of diltiazem. Heart rate improved but still is in A-fib. Patient had a potassium of 3.1 and did receive 40 mg of potassium chloride. Attempt was to try to get the patient home, however, when he got her up and walked her, her pulse ox dropped into the 80% range. Patient had elevated D-dimer and had a CTA that showed pleural effusion consistent with CHF. Patient received 40 mg of IV furosemide. Given hypoxia and her symptoms, the hospital service was contacted for admission. 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 Mitral valve disorder Mitral valve regurgitation Nonrheumatic mitral valve regurgitation Paroxysmal atrial fibrillation Paroxysmal atrial fibrillation Peripheral vascular disease Sinus bradycardia Thoracic aortic aneurysm Home Medications latanoprost 0.005 % eye drops 1 drp ophthalmic (eye) [facility] eye health #8 mL 09/30/18 [History Last Taken 04/26/20] potassium 99 mg tablet 99 mg PO DAILY supplement 04/26/19 [History Last Taken 04/26/20] calcium carb-vit C9-[id number]-ufno 333 mg-200 unit-133 mg-5 mg tablet 1 tab PO DAILY 05/22/20 [History Last Taken Unknown] cholecalciferol (vitamin D3) 25 mcg (1,000 unit) tablet 25 mcg PO DAILY 05/22/20 [History Last Taken Unknown] fish, borage, flaxseed oils-omega 3,6,9 cb #1 400 mg-400 mg-400 mg cap 1 cap PO DAILY 05/22/20 [History Last Taken Unknown] nitroglycerin 0.4 mg sublingual tablet 0.4 mg sublingual Q5M PRN Chest Pain #25 tabs 11/23/21 [Rx Last Taken Unknown] isosorbide mononitrate 60 mg tablet,extended release 24 hr 60 mg PO DAILY chest pain #90 tabs 10/03/21 [Rx Last Taken Unknown] metoprolol tartrate 25 mg tablet 25 mg PO DAILY #90 tabs 11/14/21 [Rx Last Taken Unknown] paroxetine HCl 10 mg tablet 10 mg PO DAILY 12/20/21 [History Last Taken Unknown] turmeric 400 mg capsule 400 mg PO DAILY 12/20/21 [History Last Taken Unknown] furosemide 20 mg tablet 20 mg PO BID water pill #180 tabs 04/10/22 [Rx Last Taken Unknown] Allergy/AdvReac Type Severity Reaction Status Date / Time alendronate sodium Allergy Unknown Verified 07/13/22 08:32 [From Fosamax] atorvastatin calcium Allergy Unknown Verified 07/13/22 08:32 [From Lipitor] colestipol HCl Allergy Unknown Verified 07/13/22 08:32 [From Colestid] cortisone acetate Allergy Unknown Verified 07/13/22 08:32 [From Cortone] ezetimibe [From Zetia] Allergy Unknown Verified 07/13/22 08:32 gabapentin Allergy Unknown Verified 07/13/22 08:32 goserelin acetate Allergy Unknown Verified 07/13/22 08:32 [From Zoladex] nabumetone Allergy Other Verified 07/13/22 08:32 paroxetine HCl [From Paxil] Allergy Unknown Verified 07/13/22 08:32 rosuvastatin calcium Allergy Unknown Verified 07/13/22 08:32 [From Crestor] sertraline HCl [From Zoloft] Allergy Unknown Verified 07/13/22 08:32 venlafaxine HCl Allergy Unknown Verified 07/13/22 08:32 [From Effexor] carvedilol AdvReac Unknown Verified 07/13/22 08:32 hydrocodone bitartrate AdvReac KEEPS ME Verified 07/13/22 08:32 [From Vicodin] AWAKE Family History Brother CAD (coronary artery disease) Diabetes Myocardial infarction Father CAD (coronary artery disease) Other Family history of premature coronary heart disease Surgical History Aortocoronary bypass status (~2009) History of back surgery History of knee replacement, total History of percutaneous transluminal coronary angioplasty History of right shoulder replacement History of total hysterectomy Presence of stent in coronary artery (~11/13/11) Social History Smoking Status: Never smoker alcohol intake: never substance use type: does not use caffeine: Yes Type: coffee Number of servings: 2 what type of physical activity do you participate in: none seatbelt use: always do you feel safe at home: Yes JOHNNIE Yuen Has put on weight but unclear how much. Does have some lower extremity edema as well. Denies chest pain. All review of systems were negative except as mentioned above in the history of present illness and the other review of systems. Vital Signs Vital Signs Vital Signs: 07/13/22 08:25 07/13/22 08:30 07/13/22 08:35 Temperature 36.2 C L Temperature Source Temporal Pulse Rate 114 H Respiratory Rate 16 Respiratory Effort Normal Non-Labored Blood Pressure 173/98 H Blood Pressure Mean 123 Pulse Ox 97 94 Oxygen Delivery Method Room Air Room Air Oxygen Flow Rate (L/min) 07/13/22 09:16 07/13/22 11:01 07/13/22 12:00 Temperature Temperature Source Pulse Rate 74 79 92 Respiratory Rate 15 18 18 Respiratory Effort Blood Pressure 146/100 H 145/77 H 147/68 H Blood Pressure Mean 115 99 94 Pulse Ox 95 91 98 Oxygen Delivery Method Room Air Nasal Cannula Nasal Cannula Oxygen Flow Rate (L/min) 2 Weight Weight: 52.7 kg Body Mass Index (BMI) 21.2 Physical Exam Narrative - Physical Exam General: Alert, Oriented x3, Cooperative. Severely hard of hearing. I would say some to the patient and she would not GRS simply 100 yes/no questions. I did speak very loudly for the patient to hear me and follow questioning and commands. HEENT: Atraumatic, PERRLA, EOMI, Normocephalic Oral: Moist Mucosa, No Gingival or Mucosal Lesions/ Ulcerations Neck: Supple, No JVD, Negative Carotid Bruits Lungs: Clear to auscultation, Normal air movement Cardiovascular: Regular rate, Normal S1, Normal S2, No murmurs Abdomen: Bowel Sounds Present, Soft, Non Tender, Non-Distended, No Hepato-splenomegaly Extremities: No clubbing, No cyanosis, trace edema, Capillary Refill Less than 3 Seconds Skin: No rashes, No breakdown Musculoskeletal: No Tenderness to Palpation of Joints or Extremities Neurological: Neuro grossly intact Psych/Mental Status: Normal Affect, Appropriate Results Lab / Micro Data Attestation: I reviewed the patient's lab results. Result Diagrams: 07/13/22 08:38 07/13/22 08:38 Labs: Laboratory Results - last 24 hr 07/13/22 08:38: WBC 6.8, RBC 3.46 L, Hgb 11.2 L, Hct 34.9 L, MCV 100.9 H, MCH 32.4 H, MCHC 32.1, RDW Std Deviation 66.4 H, RDW Coeff of Zuleima 18.2 H, Plt Count 258, MPV 9.5, Immature Gran % (Auto) 0.400, Neut % (Auto) 71.8 H, Lymph % (Auto) 17.4 L, [place] % (Auto) 8.5, Eos % (Auto) 1.2, Baso % (Auto) 0.7, Absolute Neuts (auto) 4.9, Absolute Lymphs (auto) 1.18, Nucleated RBC % 0, Differential Comment SCANNED, Anisocytosis 2+, Microcytosis 1+, Macrocytosis 1+ 07/13/22 08:38: D-Dimer Quant (PE/DVT) 1.07 H* 07/13/22 08:38: Sodium 138, Potassium 3.1 L, Chloride 103, Carbon Dioxide 28.0, Anion Gap 7, BUN 19 H, Creatinine 1.07 H, Estim Creat Clear Calc 29.30, Est GFR (MDRD) Af Amer 62, Est GFR (MDRD) Non-Af 51 L, BUN/Creatinine Ratio 17.8, Glucose 145 H, Calcium 9.4, Troponin I High Sens 18 07/13/22 11:00: Troponin I High Sens 25 EKG Initial EKG: Attestation: I personally reviewed and interpreted this EKG as follows: Prior EKG tracings: available for review EKG Rhythm Intrepretation: Atrial Fibrillation Radiology Impression Chest X-Ray 07/13/22 08:34 IMPRESSION: Small right pleural effusion with overlying atelectasis. Electronically Signed: Andrade Raza MD at 9:28 EDT , Chest CTA 07/13/22 09:44 IMPRESSION: No pulmonary embolus. No thoracic aortic aneurysm. The contrast bolus is insufficient to exclude thoracic aortic dissection. Moderate right pleural effusion and small left pleural effusion with overlying atelectasis. Mild pulmonary vascular congestion. No pulmonary infiltrate. Cardiomegaly with findings suggesting right heart failure. Status post sternotomy. Electronically Signed: Andrade Raza MD at 10:46 EDT , Assessment & Plan Assessment/Plan (1) (HFpEF) heart failure with preserved ejection fraction: PLAN: EF of 55% from 2D echocardiogram on September 25, 2020 Patient takes 20 mg of furosemide daily She received 40 mg IV in the emergency room. We will continue with 40 mg IV twice daily. Patient takes metoprolol tartrate and will continue as patient has taken before. But has some reaction to carvedilol. (2) Atrial fibrillation with RVR: PLAN: Resolved after IV diltiazem Continue with her home dose of metoprolol tartrate Cardiology notes from December 20, patient has not tolerated anticoagulation want to reattempt at due to bleeding and bruising. (3) Hypokalemia: PLAN: Likely secondary to furosemide. Replaced in the emergency room. Follow-up in the morning as well as check a magnesium PLAN: Plan Chronic conditions * CAD: Troponins are negative. Patient has a history of bypass with PRO to LAD, saphenous right coronary artery distal left circumflex,. Chest pain-free at this time * Hyperlipidemia: Not on statin due to intolerance to atorvastatin and also intolerance to ezetimibe * Depression: Continue with the paroxetine * Glaucoma: Continue with latanoprost * Presbycusis: I addressed the patient directly to say if she does not hear something to asked the individual repeated despite how frustrated that he may hear so that she can communicate effectively. VTE prophylaxis with enoxaparin CODE STATUS: Addressed with the patient. Patient wishes to be full code. Charges/Coding Visit Charges Inpatient E&M: 22759 Subs Hosp L2
[2022-07-13] MEDS: Furosemide 40 MG/4 ML Vial IV ×2 (13:17→17:21)
--- NOTE | 2022-07-13 15:45 | ECHOD_ITS ---
Reason For Study: CHF Procedure This was a 2D Doppler, Color Flow transthoracic echocardiogram. Exam performed portable in patient room. Left Ventricle Normal LV size. The estimated ejection fraction is 55 %. Unable to assess diastolic dysfunction. No regional wall motion abnormalities noted. Right Ventricle Normal RV size. Normal systolic function. Atria The left atrium is mildly enlarged. Normal right atrium. No doppler evidence for ASD. Mitral Valve There is no mitral valve stenosis. Mild-Moderate (1-2+) mitral valve insufficiency. Tricuspid Valve There is no tricuspid stenosis. Trivial tricuspid valve insufficiency. Pulmonary artery systolic pressure is 30 mmHg. Aortic Valve Trisinus/trileaflet aortic valve. There is no aortic stenosis. Mild (1+) aortic valve insufficiency. Pulmonic Valve There is no pulmonic valvular stenosis. No pulmonic valve insufficiency. Great Vessels Normal aortic root. Pericardium/Pleural No pericardial effusion. MMode/2D Measurements & Calculations LVIDd: 4.2 cm IVSd: 0.93 cm Ao root diam: 3.4 cm LVIDs: 2.8 cm LVPWd: 0.90 cm RVDd: 2.6 cm FS: 33.3 % LAV(MOD-bp): 54.4 ml LA dimension(2D): 4.0 cm RA A4 area: 19.1 cm2 LAV(MOD-bp) Indexed: 36.2 ml/m2 LAV(MOD-sp2): 43.9 ml LAV(MOD-sp4): 51.8 ml Doppler Measurements & Calculations Ao V2 max: 104.5 cm/sec AI max clementina: 442.0 cm/sec LV V1 max: 77.2 cm/sec Ao max P.4 mmHg AI max P.3 mmHg LV V1 max P.4 mmHg Ao V2 mean: 74.0 cm/sec LV V1 mean P.4 mmHg Ao mean P.5 mmHg AI dec slope: 276.0 cm/sec2 LV V1 mean: 56.0 cm/sec Ao V2 VTI: 19.5 cm AI P1/2t: 469.0 msec LV V1 VTI: 13.6 cm AV (velocity ratio): 0.70 PA V2 max: 63.6 cm/sec TR max clementina: 252.0 cm/sec TR max P.4 mmHg ECHO/Echo Complete Interpretation Summary The estimated ejection fraction is 55 %. Unable to assess diastolic dysfunction. The left atrium is mildly enlarged. Mild-Moderate (1-2+) mitral valve insufficiency. Mild (1+) aortic valve insufficiency. Ordering Physician: Kin Martinez Referring Physician: KIMMIE ALFARO Performed By: Tisha Burns, ESHA, RVT
[2022-07-13 16:52] LABS: Troponin-I HS 33 pg/mL (3.0-54.0)
[2022-07-13] MEDS: 0.9% Saline Lock 10 ML Syringe IV (17:21)
[2022-07-13] MEDS: Latanoprost 0.005% 1 Bottle 1 DRP OPHTHALMIC (22:06)
[2022-07-14 02:30] VITALS: BP 122/63; PULSE 80; RESP 16; TEMP 37.1; O2SAT 95
[2022-07-14 06:00] VITALS: BMI 20.5
[2022-07-14 07:52] LABS: Anion Gap 7 (5-15); BUN 19 mg/dL (7-18); BUN/Creat Ratio 21.8 RATIO (10-20); Calcium,Total 9.3 mg/dL (8.5-10.1); Chloride 104 mmol/L (98-107); Creatinine, Serum 0.87 mg/dL (0.55-1.02); EST Glomerular Filtration Rate 65 mL/min (>60); Est Glom Filt Rate - Afr Amer 79 mL/min (>60); Estimated Creatinine Clearance 36.03 ml/min; Glucose 111 mg/dL (74-106); Magnesium 1.9 mg/dL (1.6-2.6); Potassium 3.6 mmol/L (3.5-5.1); Sodium Level 141 mmol/L (136-145)
[2022-07-14 08:09] VITALS: BP 154/71; PULSE 109; RESP 18; TEMP 36.9; O2SAT 97
[2022-07-14 08:19] VITALS: BP 154/71; PULSE 109
[2022-07-14] MEDS: Metoprolol Tartrate 25 MG Tablet PO (08:19)
[2022-07-14] MEDS: Furosemide 40 MG/4 ML Vial IV ×2 (08:19→17:30)
[2022-07-14] MEDS: Enoxaparin 40 MG/0.4 ML Syringe SC (08:19)
[2022-07-14] MEDS: Isosorbide Mononitrate 60 MG Tablet PO (08:20)
[2022-07-14] MEDS: PARoxetine 10 MG Tablet PO (08:20)
--- NOTE | 2022-07-14 08:20 | PN.HOSP_ITS ---
Reason for Visit Reason for Visit: Diagnoses Hypokalemia (07/13/22) Unspecified atrial fibrillation (07/13/22) Unspecified diastolic (congestive) heart failure (07/13/22) Subjective Subjective Breathing better. Decreased LE edema. Objective Data Objective Data Vital Signs: Vital Signs Temp Pulse Resp BP Pulse Ox O2 Del Method O2 Flow Rate 36.9 C 109 H 18 154/71 H 97 Nasal Cannula 1.5 07/14/22 08:09 07/14/22 08:09 07/14/22 08:09 07/14/22 08:09 07/14/22 08:09 07/14/22 08:09 07/14/22 08:09 Oxygen Flow Rate (L/min) 1.5 Oxygen Delivery Method Nasal Cannula Weight: 51 kg Body Mass Index (BMI) 20.5 Intake & Output: Intake and Output for Last 24 Hours 07/12/22 07/13/22 07/14/22 23:59 23:59 23:59 Intake Total 1300 / 1300 100 / 100 Output Total 1000 / 1000 700 / 700 Balance 300 / 300 -600 / -600 Lab / Micro Data Result Diagrams: 07/13/22 08:38 07/14/22 06:41 Labs: Laboratory Results - last 24 hr 07/13/22 08:38: WBC 6.8, RBC 3.46 L, Hgb 11.2 L, Hct 34.9 L, MCV 100.9 H, MCH 32.4 H, MCHC 32.1, RDW Std Deviation 66.4 H, RDW Coeff of Zuleima 18.2 H, Plt Count 258, MPV 9.5, Immature Gran % (Auto) 0.400, Neut % (Auto) 71.8 H, Lymph % (Auto) 17.4 L, Bell % (Auto) 8.5, Eos % (Auto) 1.2, Baso % (Auto) 0.7, Absolute Neuts (auto) 4.9, Absolute Lymphs (auto) 1.18, Nucleated RBC % 0, Differential Comment SCANNED, Anisocytosis 2+, Microcytosis 1+, Macrocytosis 1+ 07/13/22 08:38: D-Dimer Quant (PE/DVT) 1.07 H* 07/13/22 08:38: Sodium 138, Potassium 3.1 L, Chloride 103, Carbon Dioxide 28.0, Anion Gap 7, BUN 19 H, Creatinine 1.07 H, Estim Creat Clear Calc 29.30, Est GFR (MDRD) Af Amer 62, Est GFR (MDRD) Non-Af 51 L, BUN/Creatinine Ratio 17.8, Glucose 145 H, Calcium 9.4, Troponin I High Sens 18 07/13/22 11:00: Troponin I High Sens 25 07/13/22 16:14: Troponin I High Sens 33 07/14/22 06:41: Sodium 141, Potassium 3.6, Chloride 104, Carbon Dioxide 30.0, An ion Gap 7, BUN 19 H, Creatinine 0.87, Estim Creat Clear Calc 36.03, Est GFR ( MDRD) Af Amer 79, Est GFR (MDRD) Non-Af 65, BUN/Creatinine Ratio 21.8 H, Glucose 111 H, Calcium 9.3, Magnesium 1.9 Radiography Diagnostic Testing: Radiology Impression Chest X-Ray 07/13/22 08:34 IMPRESSION: Small right pleural effusion with overlying atelectasis. Electronically Signed: Andrade Raza MD at 9:28 EDT , Chest CTA 07/13/22 09:44 IMPRESSION: No pulmonary embolus. No thoracic aortic aneurysm. The contrast bolus is insufficient to exclude thoracic aortic dissection. Moderate right pleural effusion and small left pleural effusion with overlying atelectasis. Mild pulmonary vascular congestion. No pulmonary infiltrate. Cardiomegaly with findings suggesting right heart failure. Status post sternotomy. Electronically Signed: Andrade Raza MD at 10:46 EDT , Physical Exam Const alert and no apparent distress HEENT head/scalp atraumatic and moist oral mucous membranes Resp normal respiratory effort, no retractions, no use of accessory muscles and clear to auscultation bilaterally Cardio regular rate, regular rhythm, S1 normal heart sound and S2 normal heart sound GI normal to inspection, nondistended, normoactive bowel sounds, soft to palpation, non-tender and non-distended Extremity Extremity Narrative: trace LE edema. Psych affect normal Assessment & Plan Assessment/Plan (1) (HFpEF) heart failure with preserved ejection fraction: PLAN: EF of 55% from 2D echocardiogram on September 25, 2020 Patient takes 20 mg of furosemide daily She received 40 mg IV in the emergency room. We will continue with 40 mg IV twice daily. Patient takes metoprolol tartrate and will continue as patient has taken before. But has some reaction to carvedilol. Echo ordered. (2) Atrial fibrillation with RVR: PLAN: Resolved after IV diltiazem Continue with her home dose of metoprolol tartrate Cardiology notes from December 20, patient has not tolerated anticoagulation want to reattempt at due to bleeding and bruising. (3) Hypokalemia: PLAN: Improved w replacement, though still low, so will replete again Likely secondary to furosemide. Replaced in the emergency room. Magnesium 1.9 PLAN: Plan Chronic conditions * CAD: Troponins are negative. Patient has a history of bypass with PRO to LAD, saphenous right coronary artery distal left circumflex,. Chest pain-free at this time * Hyperlipidemia: Not on statin due to intolerance to atorvastatin and also intolerance to ezetimibe * Depression: Continue with the paroxetine * Glaucoma: Continue with latanoprost * Presbycusis: I addressed the patient directly to say if she does not hear something to asked the individual repeated despite how frustrated that he may hear so that she can communicate effectively. VTE prophylaxis with enoxaparin CODE STATUS: Addressed with the patient. Patient wishes to be full code. Disposition: anticipate pt may be ready for dischare in next 24-48h. Follow up echo. Charges/Coding Visit Charges Inpatient E&M: 81043 Subs Hosp L2
[2022-07-14] MEDS: Potassium Chloride Oral Tablet 20 MEQ 40 MEQ PO (10:14)
[2022-07-14 14:00] VITALS: BP 115/67; PULSE 97; RESP 16; TEMP 36.7; O2SAT 98
[2022-07-14 20:04] VITALS: BP 138/70; PULSE 97; RESP 16; TEMP 36.7; O2SAT 95
[2022-07-14] MEDS: Latanoprost 0.005% 1 Bottle 1 DRP OPHTHALMIC (21:13)
[2022-07-15 02:15] VITALS: BP 150/70; PULSE 90; RESP 18; TEMP 36.8; O2SAT 95
[2022-07-15 06:00] VITALS: BMI 20.7
[2022-07-15 06:31] LABS: Anion Gap 6 (5-15); BUN 24 mg/dL (7-18); BUN/Creat Ratio 26.3 RATIO (10-20); Calcium,Total 9.3 mg/dL (8.5-10.1); Chloride 105 mmol/L (98-107); Creatinine, Serum 0.91 mg/dL (0.55-1.02); EST Glomerular Filtration Rate 62 mL/min (>60); Est Glom Filt Rate - Afr Amer 75 mL/min (>60); Estimated Creatinine Clearance 34.45 ml/min; Glucose 101 mg/dL (74-106); Potassium 3.7 mmol/L (3.5-5.1); Sodium Level 139 mmol/L (136-145)
[2022-07-15 08:15] VITALS: BP 149/92; PULSE 104; RESP 16; TEMP 36.4; O2SAT 95
[2022-07-15 09:02] VITALS: PULSE 104
[2022-07-15] MEDS: Metoprolol Tartrate 25 MG Tablet PO (09:02)
[2022-07-15] MEDS: 0.9% Saline Lock 10 ML Syringe IV (09:02)
[2022-07-15] MEDS: Furosemide 40 MG/4 ML Vial IV (09:02)
[2022-07-15] MEDS: Isosorbide Mononitrate 60 MG Tablet PO (09:03)
[2022-07-15] MEDS: Enoxaparin 40 MG/0.4 ML Syringe SC (09:03)
[2022-07-15] MEDS: PARoxetine 10 MG Tablet PO (09:04)
--- NOTE | 2022-07-15 10:15 | CASEMGMT ---
RN ALVINA Face to Face with patient for initial transition planning/care coordination assessment. RN CM introduced self and role at [facility]. Patient lying in bed, alert and oriented. Patient willing to participate in assessment and is able to answer all questions appropriately. Care providers, pharmacy, and demographics verified. Patient wishes to discharge home, denies need for home health at this time. Patient states she has no further needs or concerns at this time. CM to follow for discharge planning needs that may arise. PCP: Srinivasa Specialists: Patient follow with vascular at [facility] Preferred Pharmacy: [facility] Insurance: [facility] Prescription Benefit: yes Living Will/HPOA: yes, daughter Amada Matthews LNOK: daughter, son Living Arrangements: Patient lives with alone in a 2 story home with bed and bath on first floor with 2 steps and railing to enter the home. Patient states she is independent at home. Transportation: self, daughter DME/HHC: patient has shower chair, raised toilet, and cane. Disposition Plan: Patient to discharge home with family support and follow-up plans in place. Talita ROSAS, RN, CM
--- NOTE | 2022-07-15 11:11 | PCM.PN.HOSP ---
Reason for Visit Reason for Visit: Diagnoses Hypokalemia (07/13/22) Unspecified atrial fibrillation (07/13/22) Unspecified diastolic (congestive) heart failure (07/13/22) Subjective Subjective Patient is an 86-year-old lady admitted with shortness of breath diagnosed with acute on chronic congestive heart failure with preserved ejection fraction admitted to monitored bed where patient is currently being managed Objective Data Objective Data Vital Signs: Vital Signs Temp Pulse Resp BP Pulse Ox O2 Del Method O2 Flow Rate 97.5 F L 104 H 16 149/92 H 95 Room Air 1.5 07/15/22 08:15 07/15/22 09:02 07/15/22 08:15 07/15/22 08:15 07/15/22 08:15 07/15/22 08:15 07/14/22 14:00 Oxygen Flow Rate (L/min) 1.5 Oxygen Delivery Method Room Air Weight: 51.5 kg Body Mass Index (BMI) 20.7 Intake & Output: Intake and Output for Last 24 Hours 07/13/22 07/14/22 07/15/22 23:59 23:59 23:59 Intake Total 1300 / 1300 300 / 300 200 / 200 Output Total 1000 / 1000 1250 / 1250 Balance 300 / 300 -950 / -950 200 / 200 Lab / Micro Data Result Diagrams: 07/13/22 08:38 07/15/22 05:00 Labs: Laboratory Results - last 24 hr 07/15/22 05:00: Sodium 139, Potassium 3.7, Chloride 105, Carbon Dioxide 28.0, Anion Gap 6, BUN 24 H, Creatinine 0.91, Estim Creat Clear Calc 34.45, Est GFR (MDRD) Af Amer 75, Est GFR (MDRD) Non-Af 62, BUN/Creatinine Ratio 26.3 H, Glucose 101, Calcium 9.3 Physical Exam Narrative GENERAL: cooperative HEENT: Atraumatic; normocephalic EYES; Anicteric, Normal Conjunctiva NECK; supple, normal thyroid, RESPIRATORY: Diminished to auscultation CARDIOVASCULAR: Regular S1 S2, GI: soft, normoactive bowel sounds, : No Renal angle tenderness; EXTREMITIES: No edema, no clubbing, MUSCULOSKELETAL: no muscle wasting NEURO: Awake; no lateralizing signs. SKIN: No Rash PSYCH; Flat affect Assessment & Plan Assessment/Plan (1) (HFpEF) heart failure with preserved ejection fraction: (2) Atrial fibrillation with RVR: (3) Hypokalemia: PLAN: Patient is an 86-year-old lady admitted with shortness of breath diagnosed with acute on chronic congestive heart failure with preserved ejection fraction admitted to monitored bed where patient is currently being managed 1. Acute on chronic congestive heart failure with preserved ejection fraction ? Patient management diuretics, strict input and output, daily weight fluid restriction. Echo from 09/25/2020 demonstrated EF of 55% repeat echo ordered 2. Paroxysmal A-fib with RVR ? Patient was responded to IV diltiazem currently on metoprolol. Not on systemic anticoagulation due to risk for falls 3. Hypokalemia ? Corrected per protocol repeat labs ordered for monitoring 4. Coronary artery disease - status post triple-vessel CABG, stent to SVG of OM 2, in November 2011, 5. Valvular heart disease ? With history of mitral regurgitation as well as tricuspid regurgitation 6. History of thoracic aortic aneurysm without rupture ? Currently stable 7. Dyslipidemia ? Per history patient apparently has allergies to statins. Only on fish oil 8. Hypertension - Blood pressure controlled, home medications continued with dose adjustment as needed 9. Depression ? Patient is on paroxetine continued 10. DVT prophylaxis ? SC Lovenox Time spent in the patient's overall evaluation,decision-making process, review of diagnostic data, adjustment of management, discussion with other providers, nursing nursing and ancillary staff involved in patient's care documentation, 40 Minutes Charges/Coding Visit Charges Inpatient E&M: 55833 Subs Hosp L2
--- NOTE | 2022-07-15 13:05 | PCM.DC.SUM ---
Providers Date of Admission: 07/13/22 Date of Discharge: 07/15/22 Primary Care Physician: Dr. Rachel Bernabe, DO Reason For Visit: CHF Diagnosis Discharge Diagnosis (1) (HFpEF) heart failure with preserved ejection fraction: Status: Acute Code(s): I50.30 - Unspecified diastolic (congestive) heart failure (2) Atrial fibrillation with RVR: Status: Acute Code(s): I48.91 - Unspecified atrial fibrillation (3) Hypokalemia: Status: Acute Code(s): E87.6 - Hypokalemia Plan: Patient is an 86-year-old lady admitted with shortness of breath diagnosed with acute on chronic congestive heart failure with preserved ejection fraction admitted to monitored bed where patient is currently being managed 1. Acute on chronic congestive heart failure with preserved ejection fraction ? Patient management diuretics, strict input and output, daily weight fluid restriction. Echo from 09/25/2020 demonstrated EF of 55% repeat echo ordered 2. Paroxysmal A-fib with RVR ? Patient was responded to IV diltiazem currently on metoprolol. Not on systemic anticoagulation due to risk for falls 3. Hypokalemia ? Corrected per protocol repeat labs ordered for monitoring 4. Coronary artery disease - status post triple-vessel CABG, stent to SVG of OM 2, in November 2011, 5. Valvular heart disease ? With history of mitral regurgitation as well as tricuspid regurgitation 6. History of thoracic aortic aneurysm without rupture ? Currently stable 7. Dyslipidemia ? Per history patient apparently has allergies to statins. Only on fish oil 8. Hypertension - Blood pressure controlled, home medications continued with dose adjustment as needed 9. Depression ? Patient is on paroxetine continued 10. DVT prophylaxis ? SC Lovenox Time spent in the patient's overall evaluation,decision-making process, review of diagnostic data, adjustment of management, discussion with other providers, nursing nursing and ancillary staff involved in patient's care documentation, 40 Minutes Medications at Discharge Home Medications latanoprost 0.005 % eye drops 1 drp ophthalmic (eye) [facility] eye health #8 mL 09/30/18 potassium 99 mg tablet 99 mg PO DAILY supplement 04/26/19 calcium carb-vit B6-lkvougxla-mvha 333 mg-200 unit-133 mg-5 mg tablet 1 tab PO DAILY SUPPLEMENT 05/22/20 cholecalciferol (vitamin D3) 25 mcg (1,000 unit) tablet 25 mcg PO DAILY SUPPLEMENT 05/22/20 fish, borage, flaxseed oils-omega 3,6,9 cb #1 400 mg-400 mg-400 mg cap 1 cap PO DAILY SUPPLEMENT 05/22/20 nitroglycerin 0.4 mg sublingual tablet 0.4 mg sublingual Q5M PRN Chest Pain #25 tabs 03/06/21 isosorbide mononitrate 60 mg tablet,extended release 24 hr 60 mg PO DAILY chest pain #90 tabs 10/03/21 paroxetine HCl 10 mg tablet 10 mg PO DAILY MOOD 12/20/21 turmeric 400 mg capsule 400 mg PO DAILY SUPPLEMENT 12/20/21 metoprolol tartrate 25 mg tablet 25 mg PO DAILY HEART 07/13/22 furosemide 20 mg tablet 40 mg PO BID water pill #180 tabs 07/15/22 Hospital Course Summary of Care Provided Minutes Spent on Discharge: 40 Physical Exam Narrative GENERAL: cooperative HEENT: Atraumatic; normocephalic EYES; Anicteric, Normal Conjunctiva NECK; supple, normal thyroid, RESPIRATORY: Diminished to auscultation CARDIOVASCULAR: Regular S1 S2, GI: soft, normoactive bowel sounds, : No Renal angle tenderness; EXTREMITIES: No edema, no clubbing, MUSCULOSKELETAL: no muscle wasting NEURO: Awake; no lateralizing signs. SKIN: No Rash PSYCH; Flat affect Weight / BMI Weight Weight: 51.5 kg Body Mass Index (BMI) 20.7 ABG / Lab / Microbiology Data Result Diagrams: 07/13/22 08:38 07/15/22 05:00 Laboratory: Laboratory Results - last 24 hr 07/15/22 05:00: Sodium 139, Potassium 3.7, Chloride 105, Carbon Dioxide 28.0, Anion Gap 6, BUN 24 H, Creatinine 0.91, Estim Creat Clear Calc 34.45, Est GFR (MDRD) Af Amer 75, Est GFR (MDRD) Non-Af 62, BUN/Creatinine Ratio 26.3 H, Glucose 101, Calcium 9.3 D/C Instructions Discharge Diet: 8 Cup Fluid Restriction and 2000 mg Sodium Diet Discharge Activity: Return to Normal Activity Call your doctor if you observe: Fever of 101 or Higher, Shortness of breath, Fainting spells and Chest pain Meaningful Use Info Meaningful Use Diagnoses (Choose all that apply): CHF CHF PEACE/ARB ordered at discharge?: No Reason PEACE/ARB not ordered?: Not indicated Documented LVEF (%): 55 Discharge Plan Admission Admit Date/Time: 07/13/22 13:05 Attending Provider: Christian Breaux Primary Care Provider: Rachel Bernabe Consulting Providers: Kin Martinez Discharge Orders/Prescriptions Prescriptions: Continued latanoprost 0.005 % drops 1 drp OPHTHALMIC QHS Qty: 8 Label Comments: instill 1 drop into both eyes every night Rx Instructions: 1 drop each eye potassium 99 mg tablet 99 mg PO DAILY cholecalciferol (vitamin D3) 25 mcg (1,000 unit) tablet 25 mcg PO DAILY fish,bora,flax oils-om3,6,9no1 400-400-400 mg capsule 1 cap PO DAILY calcium carb-D3-mag [id number] [id number] cm-iwux-vp-mg tablet 1 tab PO DAILY Rx Instructions: administer with a meal nitroglycerin 0.4 mg tablet, sublingual 0.4 mg SUBLINGUAL Q5M PRN (Reason: Chest Pain) Qty: 25 3RF paroxetine HCl 10 mg tablet 10 mg PO DAILY turmeric 400 mg capsule 400 mg PO DAILY metoprolol tartrate 25 mg tablet 25 mg PO DAILY Rx Instructions: Hold for heart less than 60 or systolic blood pressure less than 100 mmHg or dizziness isosorbide mononitrate 60 mg tablet extended release 24 hr 60 mg PO DAILY Qty: 90 3RF Changed furosemide 20 mg tablet 40 mg PO BID Qty: 180 3RF Referrals / Follow Up: Rachel Bernabe DO [Primary Care Provider] - Disposition Disposition (needs filled in before D/C Order can be placed): Home, Self Care Charges/Coding Visit Charges Inpatient E&M: 50252 Disch Hosp >30min
--- NOTE | 2022-07-15 13:52 | PHA.DC.MR ---
Pharmacy Service has performed discharge medication reconciliation for this patient. The patient's discharge medication list was reviewed for discrepancies and discrepancies were resolved. Home Medications latanoprost 0.005 % eye drops 1 drp ophthalmic (eye) [facility] eye health #8 mL 09/30/18 potassium 99 mg tablet 99 mg PO DAILY supplement 04/26/19 calcium carb-vit V6-uysspcmfd-vpqz 333 mg-200 unit-133 mg-5 mg tablet 1 tab PO DAILY SUPPLEMENT 05/22/20 cholecalciferol (vitamin D3) 25 mcg (1,000 unit) tablet 25 mcg PO DAILY SUPPLEMENT 05/22/20 fish, borage, flaxseed oils-omega 3,6,9 cb #1 400 mg-400 mg-400 mg cap 1 cap PO DAILY SUPPLEMENT 05/22/20 nitroglycerin 0.4 mg sublingual tablet 0.4 mg sublingual Q5M PRN Chest Pain #25 tabs 03/06/21 isosorbide mononitrate 60 mg tablet,extended release 24 hr 60 mg PO DAILY chest pain #90 tabs 10/03/21 paroxetine HCl 10 mg tablet 10 mg PO DAILY MOOD 12/20/21 turmeric 400 mg capsule 400 mg PO DAILY SUPPLEMENT 12/20/21 metoprolol tartrate 25 mg tablet 25 mg PO DAILY HEART 07/13/22 furosemide 20 mg tablet 40 mg PO BID water pill #180 tabs 07/15/22
[2022-07-15 14:00] VITALS: BP 140/74; PULSE 95; RESP 16; TEMP 36.6; O2SAT 95
--- NOTE | 2022-07-15 14:42 | CHAPLAIN ---
Type of Pastoral Visit _x__ Initial Visit ___ Follow-up Visit ___ On-call Visit ___ General Patient Visit ___ Spiritual Assessment ___ Family Conference ___ Bereavement ___ Rapid Response ___ Code Blue ___ Other (describe below) Pastoral Care Referral From _x__ Patient ___ Family ___ Nurse ___ Physician ___ Lbd Teacher ___ Needle Grader ___ Other (describe below) Sacrament/Intervention _x__ Active listening ___ Anointing ___ Caodaism ___ Bereavement ___ Communion _x__ Arabella exploration ___ ___ Life review _x__ Prayer ___ Reconciliation ___ Sacrament of Sick _x__ Supportive presence ___ Wedding ___ Other (describe below) Pastoral Comments patient is welcoming and admits I missed islam today thinking today is Palm Friday; pt would like her islam contacted which was done by this foundry patternmaker; pt believes she will be going home tomorrow; pt has no other needs but a casual conversation
== END 2022-07-15 15:45 | disposition home or self-care (01) | DRG 291 ==
LOC: ED 09:04 → PCU 13:15
PROVIDERS: Emergency Provider Student in an Organized Health Care Education/Training Program; PCP Family Medicine; Visit Provider Internal Medicine
DX: I11.0 Hypertensive heart disease with heart failure (principal); I50.33 Acute on chronic diastolic (congestive) heart failure; I48.0 Paroxysmal atrial fibrillation; E78.5 Hyperlipidemia, unspecified; E87.6 Hypokalemia; I25.10 Atherosclerotic heart disease of native coronary artery without angina pectoris; R09.02 Hypoxemia; H40.9 Unspecified glaucoma; F32.A Depression, unspecified; Z95.5 Presence of coronary angioplasty implant and graft; K21.9 Gastro-esophageal reflux disease without esophagitis; Z79.899 Other long term (current) drug therapy
CPT/HCPCS: 36415; 71045; 71275; 80048; 83735; 84484; 85025; 85379; 93005; 93306; 96372; 96374; 96375; 96376; 97802; 99221; 99285; J7030; Q9967; A4216; G0378; J1940

== ENCOUNTER → 2022-07-19 | Outpatient (CLI) | payer MEDICARE, SELFPAY ==
--- NOTE | 2022-07-19 08:11 | BI_ITS ---
MAMMOGRAPHY - BILATERAL SCREENING REASON FOR EXAM: Female, 86 years old. Routine annual screening examination. PERTINENT HISTORY: Non-contributory. TECHNIQUE: Digital bilateral breast alysha (3D mammographic acquisition) in the CC and MLO projections. 2-D mediolateral oblique (MLO) and craniocaudad (CC) views of both breasts were obtained. CAD: Full Field Digital Mammography with Computer Added Detection was performed. COMPARISON: Comparison is made with prior examination dated July 16, 2021 and July 13, 2020. FINDINGS: Breast Composition: There are scattered areas of fibroglandular density. There are no dominant masses or suspicious calcifications. No other significant abnormalities are identified. There has been no significant change since the prior study. BI/SCRN MAMM (CAD)W/ALYSHA BILAT IMPRESSION: Stable bilateral screening mammogram. Yearly follow-up mammogram recommended. (A) ASSESSMENT CATEGORY: BIRADS Category 1: Negative. A letter regarding these results will be sent to the patient by the facility within 30 days. Approximately 10% of breast cancers are not detected by mammography. A normal mammogram should not delay biopsy of a clinically suspicious abnormality. [id number] Electronically Signed: Mariusz Alarcon MD at 9:20 EDT ,
== END | disposition home or self-care (01) ==
PROVIDERS: PCP Family Medicine; Referring Provider Family Medicine; Visit Provider Family Medicine
DX: Z12.31 Encounter for screening mammogram for malignant neoplasm of breast (principal)
CPT/HCPCS: 77063; 77067

== ENCOUNTER → 2022-08-30 | Outpatient (CLI) | payer MEDICARE, SELFPAY ==
[2022-08-30 15:19] LABS: Absolute Lymphocyte Count 1.53 X10^3/uL (0.83-4.51); Absolute Neutrophil Count 3.4 X10^3/uL (2.0-7.7); Basophil# 0.08 X10^3/uL; Basophil% 1.4 % (0-1); Eosinophil# 0.25 X10^3/uL; Eosinophils% 4.3 % (0-5); Hemoglobin 10.6 g/dL (12.0-15.0); Lymphocyte # 1.53 X10^3/ul (0.83-4.51); Mean Corp Hgb Conc 31.2 g/dL (32-36); Mean Corpuscular Hgb 31.2 pg (27.0-32.0); Mean Platelet Vol. 9.7 fl (6.2-12.0); Monocyte# 0.62 X10^3/uL; Monocyte% 10.5 % (0-10); NRBC Flagged by Analyzer 0.3 % (0-5); Neutrophil # 3.37 X10^3/uL (2.7-7.7); Neutrophil % 57.3 % (47-70); Platelet Count 294 K/mm3 (150-450); RBC Distribution Width CV 17.8 % (11.6-14.6); RBC Distribution Width SD 64.6 fl (35.1-43.9); White Blood Count 5.9 K/mm3 (4.4-11.0)
[2022-08-30 16:08] LABS: ALB/GLOB Ratio 1.1 RATIO (0.9-2.4); AST(SGOT) 36 U/L (15-37); Alanine Aminotransfer ALT/SGPT 22 U/L (13-56); Albumin, Serum 3.4 g/dL (3.2-5.0); Alkaline Phosphatase 71 U/L (45-117); Anion Gap 10 (5-15); BUN 21 mg/dL (7-18); BUN/Creat Ratio 21.2 RATIO (10-20); Calcium,Total 9.2 mg/dL (8.5-10.1); Chloride 100 mmol/L (98-107); Creatinine, Serum 0.99 mg/dL (0.55-1.02); EST Glomerular Filtration Rate 56 mL/min (>60); Est Glom Filt Rate - Afr Amer 68 mL/min (>60); Globulin 3.2 g/dL (2.2-4.2); Glucose 112 mg/dL (74-106); Iron 63 ug/dL (50-170); Potassium 3.7 mmol/L (3.5-5.1); Protein, Total 6.6 g/dL (6.4-8.2); Sodium Level 137 mmol/L (136-145); Thyroid Stim Hormone (TSH) 2.23 uIU/mL (0.358-3.74)
[2022-09-01 17:07] LABS: Cholesterol 136 mg/dL (200); High Density Lipoprotein 51 mg/dL; Triglycerides 50 mg/dL; Very Low Density Lipoprotein 10 mg/dL (5-40)
== END | disposition home or self-care (01) ==
LOC: BFHLAB 11:52
PROVIDERS: PCP Family Medicine; Visit Provider Family Medicine
DX: E78.5 Hyperlipidemia, unspecified (principal); I73.9 Peripheral vascular disease, unspecified; Z51.81 Encounter for therapeutic drug level monitoring; E87.6 Hypokalemia
CPT/HCPCS: 36415; 80053; 80061; 83540; 84443; 85025

== ENCOUNTER → 2022-12-23 | Outpatient (CLI) | payer MEDICARE, SELFPAY ==
--- NOTE | 2022-12-23 09:37 | RAD_ITS ---
STUDY: X-RAY - LEFT SHOULDER REASON FOR EXAM: Female, 87 years old. Left shoulder pain. TECHNIQUE: 4 view(s) of the shoulder. COMPARISON: None. FINDINGS: Osteopenia. Moderate to marked arthrosis of the glenohumeral joint. Moderate to marked arthrosis of the AC joint. Sclerosis and cystic changes of the humeral head. Calcific tendinosis. Normal visualized pulmonary apex. 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 No acute abnormality or erosive changes. Electronically Signed: Kuldeep Ritchie MD at 11:20 EDT ,
--- NOTE | 2022-12-23 09:40 | RAD_ITS ---
STUDY: X-RAY - LEFT SCAPULA REASON FOR EXAM: Female, 87 years old. Left shoulder and scapular pain. TECHNIQUE: 2 view(s) of the scapula were obtained. COMPARISON: None. FINDINGS: Osteopenia. Normal scapula, including the osseous glenoid rim, acromion, scapular neck, spine, coracoid process, and visualized body. Severe arthrosis of the glenohumeral joint. Moderate to marked arthrosis of the AC joint. Sclerosis and cystic changes of the humeral head. Calcific tendinosis. Normal visualized pulmonary apex. 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 No acute abnormality or erosive changes. Electronically Signed: Kuldeep Ritchie MD at 11:19 EDT ,
== END | disposition home or self-care (01) ==
LOC: RAD 09:31
PROVIDERS: PCP Family Medicine; Referring Provider Family Medicine; Visit Provider Family Medicine
DX: M25.512 Pain in left shoulder (principal)
CPT/HCPCS: 73010; 73030

== ENCOUNTER 2023-01-07 06:28 | Emergency (ER) | payer MEDICARE, SELFPAY ==
[2023-01-07 06:29] VITALS: BP 154/95; PULSE 129; RESP 16; TEMP 36.5; O2SAT 97; BMI 19.1
--- NOTE | 2023-01-07 06:50 | EX.ED.DYSGE1 ---
HPI History of Present Illness Chief Complaint: Back Informant: patient and family Narrative Narrative: Patient is an 87-year-old female from home with past medical history of hypertension and atrial fibrillation and congestive heart failure. She states that she has been outside in her yard bending over repeatedly picking up knots that are falling from her tree. She states on Friday she noticed some pain along the right low back and she denies any trauma prior to the pain beginning. She states that over the next few days the pain seemed to worsen and is now radiating down her right leg and making it difficult for her to sleep. Secondary to this she presents for evaluation. She states that she only took her anxiety meds this morning and did not take her other normal medication. Patient denies any dysuria or hematuria and she denies any loss of bowel or bladder control or IV drug use [facility] Medical History Aortic insufficiency Aortic valve disorder Ascending aortic aneurysm Atherosclerosis of coronary artery bypass graft without angina pectoris Atherosclerotic heart disease of [place] coronary artery without angina pectoris Atrial flutter Basal cell carcinoma of scalp Carotid bruit Chest pain Chronic diastolic (congestive) heart failure Chronic insomnia Diastolic dysfunction Essential hypertension Family history of premature coronary heart disease GERD (gastroesophageal reflux disease) History of basal cell carcinoma Hyperlipidemia Left carotid bruit 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 Mitral valve disorder Mitral valve regurgitation Nonrheumatic mitral valve regurgitation Paroxysmal atrial fibrillation Paroxysmal atrial fibrillation Peripheral vascular disease Sinus bradycardia Thoracic aortic aneurysm Home Medications latanoprost 0.005 % eye drops 1 drp ophthalmic (eye) [facility] eye health #8 mL 09/30/18 [History Last Taken 07/12/22] potassium 99 mg tablet 99 mg PO DAILY supplement 04/26/19 [History Last Taken 07/13/22] calcium carb-vit W4-[id number]-xbov 333 mg-200 unit-133 mg-5 mg tablet 1 tab PO DAILY SUPPLEMENT 05/22/20 [History Last Taken 07/13/22] cholecalciferol (vitamin D3) 25 mcg (1,000 unit) tablet 25 mcg PO DAILY SUPPLEMENT 05/22/20 [History Last Taken 07/13/22] fish, borage, flaxseed oils-omega 3,6,9 cb #1 400 mg-400 mg-400 mg cap 1 cap PO DAILY SUPPLEMENT 05/22/20 [History Last Taken 07/13/22] nitroglycerin 0.4 mg sublingual tablet 0.4 mg sublingual Q5M PRN Chest Pain #25 tabs 03/06/21 [Rx Last Taken Unknown] paroxetine HCl 10 mg tablet 10 mg PO DAILY MOOD 12/20/21 [History Last Taken 07/13/22] turmeric 400 mg capsule 400 mg PO DAILY SUPPLEMENT 12/20/21 [History Last Taken 07/13/22] furosemide 20 mg tablet 40 mg (2 x 20 mg) PO BID water pill #180 tabs 07/15/22 [Rx Last Taken 07/13/22] isosorbide mononitrate 60 mg tablet,extended release 24 hr 60 mg PO DAILY chest pain #90 tabs 11/15/22 [Rx Last Taken Unknown] metoprolol tartrate 25 mg tablet 25 mg PO DAILY HEART #90 tabs 11/15/22 [Rx Last Taken Unknown] methocarbamol 500 mg tablet 500 mg PO 4X/DAY PRN Muscle pain/spasm #40 tabs 01/07/23 [Rx Last Taken Unknown] oxycodone-acetaminophen 5 mg-325 mg tablet (Percocet) 1 tab PO Q6H PRN pain 3 days #12 tabs 01/07/23 [Rx Last Taken Unknown] Allergy/AdvReac Type Severity Reaction Status Date / Time alendronate sodium Allergy Unknown Verified 07/13/22 08:32 [From Fosamax] atorvastatin calcium Allergy Unknown Verified 07/13/22 08:32 [From Lipitor] colestipol HCl Allergy Unknown Verified 07/13/22 08:32 [From Colestid] cortisone acetate Allergy Unknown Verified 07/13/22 08:32 [From Cortone] ezetimibe [From Zetia] Allergy Unknown Verified 07/13/22 08:32 gabapentin Allergy Unknown Verified 07/13/22 08:32 goserelin acetate Allergy Unknown Verified 07/13/22 08:32 [From Zoladex] nabumetone Allergy Other Verified 07/13/22 08:32 paroxetine HCl [From Paxil] Allergy Unknown Verified 07/13/22 08:32 rosuvastatin calcium Allergy Unknown Verified 07/13/22 08:32 [From Crestor] sertraline HCl [From Zoloft] Allergy Unknown Verified 07/13/22 08:32 venlafaxine HCl Allergy Unknown Verified 07/13/22 08:32 [From Effexor] carvedilol AdvReac Unknown Verified 07/13/22 08:32 hydrocodone bitartrate AdvReac KEEPS ME Verified 07/13/22 08:32 [From Vicodin] AWAKE Family History Brother CAD (coronary artery disease) Diabetes Myocardial infarction Father CAD (coronary artery disease) Other Family history of premature coronary heart disease Surgical History Aortocoronary bypass status (~2009) History of back surgery History of knee replacement, total History of percutaneous transluminal coronary angioplasty History of right shoulder replacement History of total hysterectomy Presence of stent in coronary artery (~11/13/11) Social History Smoking Status: Never smoker alcohol intake: never substance use type: does not use caffeine: Yes Type: coffee Number of servings: 2 what type of physical activity do you participate in: none seatbelt use: always do you feel safe at home: Yes ROS ROS ED Constitutional Constitutional ED: Denies chills or fever(s) ENT ENT ED: Denies sore throat Cardiovascular Cardiovascular: Denies chest pain Respiratory/Chest Respiratory/Chest: Denies cough or dyspnea Gastrointestinal Gastrointestinal: Denies abdominal pain, diarrhea, nausea or vomiting Genitourinary Genitourinary ED: Denies dysuria Musculoskeletal Musculoskeletal: Reports back pain Integumentary Denies rash Neurologic Neurologic: Denies headache(s) Hematologic/Lymphatic Hematologic/Lymphatic: Denies easy bleeding or easy bruising EXAM Physical Exam Const Vital Signs: 01/07/23 06:29 Temperature 97.7 F L Temperature Source Oral Pulse Rate 129 H Respiratory Rate 16 Blood Pressure 154/95 H Blood Pressure Mean 114 Pulse Ox 97 Oxygen Delivery Method Room Air Positive well nourished and well developed General Appearance ED: well developed HEENT HEENT Narrative: Normocephalic atraumatic Eyes PERRL and EOMs intact bilaterally General Eye ED: Negative for scleral icterus Neck supple Resp normal respiratory effort and clear to auscultation bilaterally Cardio Rate: other Other Details: Irregularly irregular rhythm with tachycardic rate consistent with history of atrial fibrillation GI normal to inspection, nondistended, normoactive bowel sounds, non-tender, non-distended and no masses GI Narrative: No voluntary guarding or rigidity. No pulsatile mass or fluid wave Auscultation: normoactive bowel sounds Palpation: soft Back/Spine Back/Spine Narrative: No bony deformity or step-off of the thoracic or lumbar spine no midline pain with palpation. There is mild right paralumbar tenderness and spasm noted that worsens with extension and rotation. No saddle anesthesia. Negative straight leg raise. No clonus or Babinski. Patellar reflexes are plus 1 out of 4 bilaterally. Patient does have increased pain to palpation over top of the piriformis muscle as well. No overlying soft tissue changes to suggest trauma or infection No CVA pain Extremity Extremity Narrative: There is asymmetric edema of the right lower leg compared to the left. Positive Homans' sign is noted. No overlying soft tissue changes to suggest trauma or infection. Neuro oriented x3 and CN's II-XII intact bilaterally Sensorium / Orientation: alert Psych mental status grossly normal Skin no rashes or lesions noted MDM MDM MDM Narrative Medical decision making narrative: Presented to the ER in atrial fibrillation which she has chronically and was technically in RVR but did not take any of her morning medication. Her back pain appears very musculoskeletal in nature as it is worse with motion and there is a radicular component to it as her radiates down her right leg. With the fact that she has been performing excessive bending and standing this would go with lumbosacral strain and piriformis syndrome. We discussed the potential venous duplex for the right leg swelling and calf tenderness but patient states the right leg is always swollen compared to left. He also states that she cannot take any type of anticoagulation and therefore even if the test was positive she could not take the medication for treatment such as Coumadin Eliquis or Xarelto and therefore would not change plan of care. At this time the symptoms are consistent with musculoskeletal and she has had improvement of her pain with Toradol and Norflex and therefore she will be prescribed medication for home and is otherwise safe for discharge. History & Record Review Discussion w/independent historian: Patient and Family Discharge Plan Triage Chief Complaint: Back ED Provider: Arnie Saba Dx/Rx/DC Orders Clinical Impression: Acute lumbosacral myofascial strain, Atrial fibrillation, Piriformis syndrome Instructions: Understanding Lumbosacral Strain Prescriptions: New oxycodone-acetaminophen [Percocet] 5-325 mg tablet 1 tab PO Q6H PRN (Reason: pain) 3 Days Qty: 12 0RF methocarbamol 500 mg tablet 500 mg PO 4X/DAY PRN (Reason: Muscle pain/spasm) Qty: 40 0RF No Action latanoprost 0.005 % drops 1 drp OPHTHALMIC QHS Qty: 8 Patient Comments: instill 1 drop into both eyes every night Rx Instructions: 1 drop each eye potassium 99 mg tablet 99 mg PO DAILY cholecalciferol (vitamin D3) 25 mcg (1,000 unit) tablet 25 mcg PO DAILY fish,bora,flax oils-om3,6,9no1 400-400-400 mg capsule 1 cap PO DAILY calcium carb-D3-mag [id number] ku-ejpq-xj-mg tablet 1 tab PO DAILY Rx Instructions: administer with a meal nitroglycerin 0.4 mg tablet, sublingual 0.4 mg SUBLINGUAL Q5M PRN (Reason: Chest Pain) Qty: 25 3RF paroxetine HCl 10 mg tablet 10 mg PO DAILY turmeric 400 mg capsule 400 mg PO DAILY furosemide 20 mg tablet 40 mg PO BID Qty: 180 3RF isosorbide mononitrate 60 mg tablet extended release 24 hr 60 mg PO DAILY Qty: 90 3RF metoprolol tartrate 25 mg tablet 25 mg PO DAILY Qty: 90 3RF Rx Instructions: Hold for heart less than 60 or systolic blood pressure less than 100 mmHg or dizziness Primary Care Provider: Rachel Bernabe Referrals: Rachel Bernabe DO [Primary Care Provider] - Activity Restrictions/Additional Instructions: Your exam indicates that you have muscular tension and spasm secondary to the repetitive bending and stooping. Take the medication prescribed to help resolve symptoms and you may add [id number]-[id number]-fbfncte rubs or wraps to help with pain. Please continue to stretch to help reduce pain and speed healing and return to the ER should you have any further concerns. Disposition Disposition: Home, Self Care
[2023-01-07] MEDS: Ketorolac 15 MG/ML Vial IM (06:54)
[2023-01-07] MEDS: Orphenadrine 60 MG/2 ML Ampul IM (06:55)
[2023-01-07] MEDS: Metoprolol Tartrate 25 MG Tablet PO (07:50)
[2023-01-07 07:53] VITALS: BP 152/92
== END 2023-01-07 07:54 | disposition home or self-care (01) ==
PROVIDERS: Emergency Provider Emergency Medicine; PCP Family Medicine; Visit Provider Emergency Medicine
DX: S39.012A Strain of muscle, fascia and tendon of lower back, initial encounter (principal); I50.32 Chronic diastolic (congestive) heart failure; I11.0 Hypertensive heart disease with heart failure; I73.9 Peripheral vascular disease, unspecified; I71.40 Abdominal aortic aneurysm, without rupture, unspecified; I48.0 Paroxysmal atrial fibrillation; E78.5 Hyperlipidemia, unspecified; I25.10 Atherosclerotic heart disease of native coronary artery without angina pectoris; F51.04 Psychophysiologic insomnia; Z95.1 Presence of aortocoronary bypass graft; Z79.899 Other long term (current) drug therapy; K21.9 Gastro-esophageal reflux disease without esophagitis; X50.1XXA Overexertion from prolonged static or awkward postures, initial encounter
CPT/HCPCS: 96372; 99282

== ENCOUNTER 2023-02-24 10:42 | Emergency (ER) | payer MEDICARE, SELFPAY ==
[2023-02-24 10:48] VITALS: BP 152/106; PULSE 113; RESP 14; TEMP 36.4; O2SAT 96; BMI 21.4
[2023-02-24 10:49] VITALS: O2SAT 96
--- NOTE | 2023-02-24 11:12 | EKG12_ITS ---
Test Reason : AFIB Blood Pressure : / mmHG Vent. Rate : 116 BPM Atrial Rate : 000 BPM P-R Int : 000 ms QRS Dur : 076 ms QT Int : 376 ms P-R-T Axes : 000 049 030 degrees QTc Int : 522 ms Atrial fibrillation with rapid ventricular response Nonspecific T wave abnormality Abnormal ECG Confirmed by ZACK BOYCE, MAURO ([id number]), avid editor MARCELA JENSEN ([id number]) on 03/05/2023 10:02:32 AM Referred By: ROSELYN/JOSEFINA Confirmed By:MAURO DIXON MD
--- NOTE | 2023-02-24 11:19 | EX.ED.DYSGE1 ---
HPI <MO Evans - Last Filed: 02/24/23 13:43> History of Present Illness Chief Complaint: Shortness of Breath Narrative Narrative: 87-year-old female with PMH of HTN, CABG, A-fib presents with 2 days of shortness of breath and bilateral lower extremity swelling. She takes metoprolol and Lasix 40 mg twice daily. When looking at her pill bottles she is not really sure what she took this morning. She states she had chest pressure earlier but none now. No fever or cough. She used to be on anticoagulation but stopped due to recurrent epistaxis. PFSH <MO Evans - Last Filed: 02/24/23 13:43> [facility] Medical History (Updated 02/24/23 @ 13:43 by MO Evans) Aortic insufficiency Aortic valve disorder Ascending aortic aneurysm Atherosclerosis of coronary artery bypass graft without angina pectoris Atherosclerotic heart disease of [place] coronary artery without angina pectoris Atrial flutter Basal cell carcinoma of scalp Carotid bruit Chest pain Chronic diastolic (congestive) heart failure Chronic insomnia Diastolic dysfunction Essential hypertension Family history of premature coronary heart disease GERD (gastroesophageal reflux disease) History of basal cell carcinoma Hyperlipidemia 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 Mitral valve disorder Mitral valve regurgitation Nonrheumatic mitral valve regurgitation Paroxysmal atrial fibrillation Paroxysmal atrial fibrillation Peripheral vascular disease Scabies Sinus bradycardia Thoracic aortic aneurysm Home Medications latanoprost 0.005 % eye drops 1 drp ophthalmic (eye) [facility] #8 mL 09/30/18 [History Last Taken 07/12/22] potassium 99 mg tablet 99 mg PO DAILY supplement 04/26/19 [History Last Taken 07/13/22] calcium carb-vit C9-syhpxnfau-stih 333 mg-200 unit-133 mg-5 mg tablet 1 tab PO DAILY SUPPLEMENT 05/22/20 [History Last Taken 07/13/22] cholecalciferol (vitamin D3) 25 mcg (1,000 unit) tablet 25 mcg PO DAILY SUPPLEMENT 05/22/20 [History Last Taken 07/13/22] fish, borage, flaxseed oils-omega 3,6,9 cb #1 400 mg-400 mg-400 mg cap 1 cap PO DAILY SUPPLEMENT 05/22/20 [History Last Taken 07/13/22] nitroglycerin 0.4 mg sublingual tablet 0.4 mg sublingual Q5M PRN Chest Pain #25 tabs 03/06/21 [Rx Last Taken Unknown] paroxetine HCl 10 mg tablet 10 mg PO DAILY MOOD 12/20/21 [History Last Taken 07/13/22] turmeric 400 mg capsule 400 mg PO DAILY SUPPLEMENT 12/20/21 [History Last Taken 07/13/22] isosorbide mononitrate 60 mg tablet,extended release 24 hr 60 mg PO DAILY chest pain #90 tabs 11/15/22 [Rx Last Taken Unknown] metoprolol tartrate 25 mg tablet 25 mg PO DAILY HEART #90 tabs 11/15/22 [Rx Last Taken Unknown] methocarbamol 500 mg tablet 500 mg PO 4X/DAY PRN Muscle pain/spasm #40 tabs 01/07/23 [Rx Last Taken Unknown] oxycodone-acetaminophen 5 mg-325 mg tablet (Percocet) 1 tab PO Q6H PRN pain 3 days #12 tabs 01/07/23 [Rx Last Taken Unknown] permethrin 5 % topical cream 1 applic topical .twice #60 grams 02/12/23 [Rx Last Taken Unknown] furosemide 20 mg tablet 40 mg (2 x 20 mg) PO BID water pill #120 tabs 02/19/23 [Rx Last Taken Unknown] Allergy/AdvReac Type Severity Reaction Status Date / Time alendronate sodium Allergy Unknown Verified 02/24/23 10:47 [From Fosamax] atorvastatin calcium Allergy Unknown Verified 02/24/23 10:47 [From Lipitor] colestipol HCl Allergy Unknown Verified 02/24/23 10:47 [From Colestid] cortisone acetate Allergy Unknown Verified 02/24/23 10:47 [From Cortone] ezetimibe [From Zetia] Allergy Unknown Verified 02/24/23 10:47 gabapentin Allergy Unknown Verified 02/24/23 10:47 goserelin acetate Allergy Unknown Verified 02/24/23 10:47 [From Zoladex] nabumetone Allergy Other Verified 02/24/23 10:47 paroxetine HCl [From Paxil] Allergy Unknown Verified 02/24/23 10:47 rosuvastatin calcium Allergy Unknown Verified 02/24/23 10:47 [From Crestor] sertraline HCl [From Zoloft] Allergy Unknown Verified 02/24/23 10:47 venlafaxine HCl Allergy Unknown Verified 02/24/23 10:47 [From Effexor] carvedilol AdvReac Unknown Verified 02/24/23 10:47 hydrocodone bitartrate AdvReac KEEPS ME Verified 02/24/23 10:47 [From Vicodin] AWAKE Family History Brother CAD (coronary artery disease) Diabetes Myocardial infarction Father CAD (coronary artery disease) Other Family history of premature coronary heart disease Surgical History Aortocoronary bypass status (~2009) History of back surgery History of knee replacement, total History of percutaneous transluminal coronary angioplasty History of right shoulder replacement History of total hysterectomy Presence of stent in coronary artery (~11/13/11) Social History Smoking Status: Never smoker alcohol intake: never substance use type: does not use caffeine: Yes Type: coffee Number of servings: 2 what type of physical activity do you participate in: none seatbelt use: always do you feel safe at home: Yes ROS <MO Evans - Last Filed: 02/24/23 13:43> ROS ED ROS Narrative Constitutional: Negative for fever, chills, malaise. CVS: Negative for palpitations, chest pain, syncope. Respiratory: Positive for shortness of breath. Negative for cough. GI: Negative for abdominal pain, nausea, vomiting, diarrhea. EXAM <MO Evans - Last Filed: 02/24/23 13:43> Physical Exam Narrative Exam Narrative: CONST: Patient sitting in no acute distress. EYES: Normal inspection. NECK: Normal inspection. RESP: No respiratory distress, CTAB. CVS: R irregularly irregular rhythm around 110 bpm, no murmur, no gallop. ABD: Soft and nontender, no guarding or rebound. SKIN: Color normal, no rash, warm, dry, intact. EXTREMITIES: Normal appearance, symmetric 2+ pitting edema to bilateral knees. NEURO: Oriented x4. PSYCH: Normal affect. Const Vital Signs: 02/24/23 10:48 02/24/23 10:49 02/24/23 12:43 Temperature 97.6 F L 97.9 F Temperature Source Temporal Temporal Pulse Rate 113 H 115 H Respiratory Rate 14 16 Respiratory Effort Short of Breath Respiratory Depth Normal Respiratory Pattern Normal Blood Pressure 152/106 H 146/98 H Blood Pressure Mean 121 114 Pulse Ox 96 97 Oxygen Delivery Method Room Air Room Air Room Air 02/24/23 13:15 Temperature Temperature Source Pulse Rate 100 Respiratory Rate 20 H Respiratory Effort Respiratory Depth Respiratory Pattern Blood Pressure 151/83 H Blood Pressure Mean 105 Pulse Ox 94 Oxygen Delivery Method <Dr. Chito Murray MD - Last Filed: 02/24/23 11:50> Physical Exam Const Vital Signs: 02/24/23 10:48 02/24/23 10:49 02/24/23 12:43 Temperature 97.6 F L 97.9 F Temperature Source Temporal Temporal Pulse Rate 113 H 115 H Respiratory Rate 14 16 Respiratory Effort Short of Breath Respiratory Depth Normal Respiratory Pattern Normal Blood Pressure 152/106 H 146/98 H Blood Pressure Mean 121 114 Pulse Ox 96 97 Oxygen Delivery Method Room Air Room Air Room Air 02/24/23 13:15 Temperature Temperature Source Pulse Rate 100 Respiratory Rate 20 H Respiratory Effort Respiratory Depth Respiratory Pattern Blood Pressure 151/83 H Blood Pressure Mean 105 Pulse Ox 94 Oxygen Delivery Method MDM <MO Evans - Last Filed: 02/24/23 13:43> [facility] MDM Narrative Medical decision making narrative: History gathered from: Patient and EMS Patient presents with shortness of breath and bilateral lower extremity swelling. History of A-fib and CHF. She appears well and nontoxic. She is in A-fib between 100-110 bpm. Saturations are 96% and she speaking in no distress. She has slight Rales in right lower lung base 2+ bilateral lower extremity edema. EKG is A-fib RVR at 116 bpm with no acute ischemic changes. Troponin is 15 ruling out ACS. CBC shows normal white count at 6.0, hemoglobin 11.5 is higher than previous. BMP shows normal electrolytes, BUN 25, creatinine 1.09. Glucose is 150 with normal CO2 and anion gap. BNP 962. ED attending interpretation of 1 view chest x-ray shows right pleural effusion and CHF. She was treated with IV Lasix 40 mg and her ambulatory pulse ox is 96%. She feels comfortable going home. I reviewed her medications again. Her Lasix bottle has 20 mg tablets and states she spoke to take 40 mg twice daily. She tells me she is only taking 1 pill in the morning and 1 in the evening which is 20 mg so I told her to increase it to the 40 mg dose twice daily x3 days to treat the CHF exacerbation. She should return if symptoms worsen was discharged in stable condition. Differential: A-fib RVR, ACS, CHF exacerbation, pneumonia External records reviewed: 07/13/22 echocardiogram EF 55%, LA dilated, mild to moderate mitral valve insufficiency Lab Data Attestation: I reviewed the patient's lab results. Labs: Laboratory Results - last 24 hr 02/24/23 02/24/23 03:14 10:57 WBC 6.0 RBC 3.60 L Hgb 11.5 L Hct 36.0 L MCV 100.0 H MCH 31.9 MCHC 31.9 L RDW Std Deviation 68.6 H RDW Coeff of [place] 18.6 H Plt Count 292 MPV 10.0 Immature Gran % (Auto) 0.500 Neut % (Auto) 70.6 H Lymph % (Auto) 17.7 L [place] % (Auto) 8.7 Eos % (Auto) 1.3 Baso % (Auto) 1.2 H Absolute Neuts (auto) 4.2 Absolute Lymphs (auto) 1.06 Nucleated RBC % 0.7 Differential Comment SCANNED Anisocytosis 2+ Microcytosis 1+ Macrocytosis 1+ Sodium 136 Potassium 3.9 Chloride 98 Carbon Dioxide 31.0 Anion Gap 7 BUN 25 H Creatinine 1.09 H Estim Creat Clear Calc 28.22 Est GFR (MDRD) Af Amer 61 Est GFR (MDRD) Non-Af 50 L BUN/Creatinine Ratio 22.9 H Glucose 150 H Calcium 9.3 Troponin I High Sens 15 B-Natriuretic Peptide 962.2 H Radiography Diagnostic Testing: Clinical Impression(s) from Imaging Studies Chest X-Ray 02/24/23 11:20 IMPRESSION: Small right pleural effusion with right basilar atelectasis and mild degree of CHF. Electronically Signed: Mariusz Alarcon MD at 12:37 EST , EKG Initial EKG: Attestation: I personally reviewed and interpreted this EKG as follows: Interpretation: Atrial Fibrillation Comments: A-fib RVR at 116 bpm, no STEMI criteria Prior EKG tracings: available for review Prior: Unchanged <Dr. Chito Murray MD - Last Filed: 02/24/23 11:50> [facility] Lab Data Labs: Laboratory Results - last 24 hr 02/24/23 02/24/23 03:14 10:57 WBC 6.0 RBC 3.60 L Hgb 11.5 L Hct 36.0 L MCV 100.0 H MCH 31.9 MCHC 31.9 L RDW Std Deviation 68.6 H RDW Coeff of [place] 18.6 H Plt Count 292 MPV 10.0 Immature Gran % (Auto) 0.500 Neut % (Auto) 70.6 H Lymph % (Auto) 17.7 L [place] % (Auto) 8.7 Eos % (Auto) 1.3 Baso % (Auto) 1.2 H Absolute Neuts (auto) 4.2 Absolute Lymphs (auto) 1.06 Nucleated RBC % 0.7 Differential Comment SCANNED Anisocytosis 2+ Microcytosis 1+ Macrocytosis 1+ Sodium 136 Potassium 3.9 Chloride 98 Carbon Dioxide 31.0 Anion Gap 7 BUN 25 H Creatinine 1.09 H Estim Creat Clear Calc 28.22 Est GFR (MDRD) Af Amer 61 Est GFR (MDRD) Non-Af 50 L BUN/Creatinine Ratio 22.9 H Glucose 150 H Calcium 9.3 Troponin I High Sens 15 B-Natriuretic Peptide 962.2 H Radiography Diagnostic Testing: Clinical Impression(s) from Imaging Studies Chest X-Ray 02/24/23 11:20 IMPRESSION: Small right pleural effusion with right basilar atelectasis and mild degree of CHF. Electronically Signed: Mariusz Alarcon MD at 12:37 EST , Treatment and Re-Evaluation Comments:: I have personally performed a face to face assessment of the patient and have reviewed the CAROLANN Note. I performed a substantive portion of the visit including all aspects of the following. My manuel findings include: History is 2 or 3 days of gradual onset dyspnea and bilateral lower leg edema. She thinks she is having some chest heaviness as well it is nonpleuritic. Dyspnea is mostly with exertion, denies orthopnea. No cough or fever/chills. No GI symptoms. Exam is bilateral lower extremity moderate edema symmetric without signs of a DVT. Few possible rhonchi but for the most part lungs are clear, speaking in full sentences, pleasant. Irregularly irregular and tachycardic mildly. No significant JVD. Medical Decison Making EKG showing rapid A-fib with no injury pattern, will obtain labs including troponin and BNP, chest x-ray, empiric Lasix, reevaluate. Other additions or changes: [None] Discharge Plan Triage Chief Complaint: Shortness of Breath ED Midlevel Provider: Rachel Gunter ED Provider: Chito Murray Dx/Rx/DC Orders Clinical Impression: Acute exacerbation of CHF (congestive heart failure), Pleural effusion, right, Bilateral leg edema Instructions: Coping with Heart Failure Prescriptions: No Action latanoprost 0.005 % drops 1 drp OPHTHALMIC QHS Qty: 8 Patient Comments: instill 1 drop into both eyes every night Rx Instructions: 1 drop each eye potassium 99 mg tablet 99 mg PO DAILY cholecalciferol (vitamin D3) 25 mcg (1,000 unit) tablet 25 mcg PO DAILY fish,bora,flax oils-om3,6,9no1 400-400-400 mg capsule 1 cap PO DAILY calcium carb-D3-mag [id number] [phone] dk-pvpy-wb-mg tablet 1 tab PO DAILY Rx Instructions: administer with a meal nitroglycerin 0.4 mg tablet, sublingual 0.4 mg SUBLINGUAL Q5M PRN (Reason: Chest Pain) Qty: 25 3RF paroxetine HCl 10 mg tablet 10 mg PO DAILY turmeric 400 mg capsule 400 mg PO DAILY permethrin 5 % cream 1 applic topical .twice Qty: 60 0RF Rx Instructions: apply 1/2 tube leaving on for 8-to-14 hrs before washing off; repeat in 10-12 days oxycodone-acetaminophen [Percocet] 5-325 mg tablet 1 tab PO Q6H PRN (Reason: pain) 3 Days Qty: 12 0RF methocarbamol 500 mg tablet 500 mg PO 4X/DAY PRN (Reason: Muscle pain/spasm) Qty: 40 0RF isosorbide mononitrate 60 mg tablet extended release 24 hr 60 mg PO DAILY Qty: 90 3RF metoprolol tartrate 25 mg tablet 25 mg PO DAILY Qty: 90 3RF Rx Instructions: Hold for heart less than 60 or systolic blood pressure less than 100 mmHg or dizziness furosemide 20 mg tablet 40 mg PO BID Qty: 120 2RF Primary Care Provider: Rachel Bernabe Referrals: Rachel Bernabe DO [Primary Care Provider] - Activity Restrictions/Additional Instructions: There is increased fluid in your lungs from congestive heart failure. For the next 3 days increase your furosemide dose to 40 mg in the morning (2 tablets) and 40 mg in the evening (2 tablets). Then go back to your regular dose. If you feel significantly short of breath or worsen come back to the ER Disposition Disposition: Home, Self Care
--- NOTE | 2023-02-24 11:20 | RAD_ITS ---
STUDY: X-RAY CHEST REASON FOR EXAM: Female, 87 years old. Dyspnea TECHNIQUE: Single AP portable view of the chest. COMPARISON: Comparison is made with prior study July 13, 2022. FINDINGS: EKG electrodes are seen. Small right pleural effusion with right basilar atelectasis. Massive congestion and mild degree of CHF. Sternal cerclage wires and vascular clips are present from a prior sternotomy and coronary artery bypass graft procedure (CABG). Normal mediastinum and alexus. Normal visualized pulmonary arteries. There is atherosclerotic calcification of the aortic arch with tortuosity. There are diffuse degenerative changes of the visualized thoracic spine. The patient is status post right reverse shoulder replacement. There is no demonstrated abnormality of the visualized soft tissue structures of the upper abdomen. RAD/Chest 1 View (Portable) IMPRESSION: Small right pleural effusion with right basilar atelectasis and mild degree of CHF. Electronically Signed: Mariusz Alarcon MD at 12:37 EST ,
[2023-02-24 11:34] LABS: Absolute Lymphocyte Count 1.06 X10^3/uL (0.83-4.51); Absolute Neutrophil Count 4.2 X10^3/uL (2.0-7.7); Basophil# 0.07 X10^3/uL; Basophil% 1.2 % (0-1); Eosinophil# 0.08 X10^3/uL; Eosinophils% 1.3 % (0-5); Hemoglobin 11.5 g/dL (12.0-15.0); Lymphocyte # 1.06 X10^3/ul (0.83-4.51); Lymphocyte % 17.7 % (19-41); Mean Corp Hgb Conc 31.9 g/dL (32-36); Mean Corpuscular Hgb 31.9 pg (27.0-32.0); Monocyte# 0.52 X10^3/uL; Monocyte% 8.7 % (0-10); NRBC Flagged by Analyzer 0.7 % (0-5); Neutrophil # 4.22 X10^3/uL (2.7-7.7); Neutrophil % 70.6 % (47-70); POSITIVE MORPHOLOGY YES; Platelet Count 292 K/mm3 (150-450); RBC Distribution Width CV 18.6 % (11.6-14.6); RBC Distribution Width SD 68.6 fl (35.1-43.9)
[2023-02-24 11:35] LABS: Differential Indicated SCAN CRITERIA MET
[2023-02-24] MEDS: Furosemide 40 MG/4 ML Vial IV (11:35)
[2023-02-24 11:45] LABS: Anisocytosis 2+; Differential Comment SCANNED; Macrocytosis 1+; Microcytosis 1+
[2023-02-24 11:46] LABS: Anion Gap 7 (5-15); BUN 25 mg/dL (7-18); BUN/Creat Ratio 22.9 RATIO (10-20); Calcium,Total 9.3 mg/dL (8.5-10.1); Chloride 98 mmol/L (98-107); Creatinine, Serum 1.09 mg/dL (0.55-1.02); EST Glomerular Filtration Rate 50 mL/min (>60); Est Glom Filt Rate - Afr Amer 61 mL/min (>60); Estimated Creatinine Clearance 28.22 ml/min; Glucose 150 mg/dL (74-106); Potassium 3.9 mmol/L (3.5-5.1); Sodium Level 136 mmol/L (136-145); Troponin-I HS 15 pg/mL (3.0-54.0)
[2023-02-24 11:58] LABS: BNP,B-Type NATRIURETIC PEPTIDE 962.2 pg/mL (0-100)
[2023-02-24 12:43] VITALS: BP 146/98; PULSE 115; RESP 16; TEMP 36.6; O2SAT 97
[2023-02-24 13:05] VITALS: O2SAT 96
[2023-02-24 13:15] VITALS: BP 151/83; PULSE 100; RESP 20; O2SAT 94
--- NOTE | 2023-02-24 13:55 | ED.RN ---
left message for daughter to give her a ride home
== END 2023-02-24 14:52 | disposition home or self-care (01) ==
PROVIDERS: Physician Assistant; Emergency Provider Emergency Medicine; PCP Family Medicine; Visit Provider Emergency Medicine
DX: I11.0 Hypertensive heart disease with heart failure (principal); I50.32 Chronic diastolic (congestive) heart failure; I48.0 Paroxysmal atrial fibrillation; E78.5 Hyperlipidemia, unspecified; I25.10 Atherosclerotic heart disease of native coronary artery without angina pectoris; Z79.899 Other long term (current) drug therapy; Z95.1 Presence of aortocoronary bypass graft; Z96.659 Presence of unspecified artificial knee joint; Z96.611 Presence of right artificial shoulder joint; Z90.710 Acquired absence of both cervix and uterus; Z95.5 Presence of coronary angioplasty implant and graft; J90 Pleural effusion, not elsewhere classified; R60.0 Localized edema
CPT/HCPCS: 71045; 80048; 83880; 84484; 85025; 93005; 96374; 99285; A4216; J1940

== ENCOUNTER 2023-03-16 11:41 | Inpatient (IN) | payer MEDICARE, SELFPAY ==
[2023-03-16] VITALS (12 sets, daily range): BP systolic 137–173; BP diastolic 78–105; PULSE 60–135; RESP 17–20; TEMP 36.2–36.7; O2SAT 87–100; BMI 20.2; BMI 19.9
--- NOTE | 2023-03-16 12:04 | EKG12_ITS ---
Test Reason : SOB Blood Pressure : / mmHG Vent. Rate : 099 BPM Atrial Rate : 000 BPM P-R Int : 000 ms QRS Dur : 082 ms QT Int : 390 ms P-R-T Axes : 000 075 033 degrees QTc Int : 500 ms Atrial fibrillation with premature ventricular or aberrantly conducted complexes Nonspecific ST and T wave abnormality Abnormal ECG Confirmed by ZACK BOYCE, MAURO ([id number]), technical writer and editor SANAZ GOVEA ([id number]) on 03/17/2023 10:55:24 AM Referred By: THIAGO/LARRY Confirmed By:MAURO DIXON MD
--- NOTE | 2023-03-16 12:05 | EX.ED.DYSGE1 ---
HPI <SONU Cueto - Last Filed: 03/16/23 14:17> History of Present Illness Chief Complaint: Shortness of Breath Narrative Narrative: Patient is an 87-year-old female with history of atrial fibrillation, hypertension, who used to be on blood thinners however has been off them for several months secondary to nosebleeds. Patient today was at [employer], per the daughter, slightly confused, patient then became more short of breath on exertion. Patient also complained of chest pain, left arm pain, however is difficult because the patient states the left arm has been there for years. Patient was 87% on room air. Patient is a poor informant. PFS <SONU Cueto - Last Filed: 03/16/23 14:17> [facility] Medical History Aortic insufficiency Aortic valve disorder Ascending aortic aneurysm Atherosclerosis of coronary artery bypass graft without angina pectoris Atherosclerotic heart disease of [place] coronary artery without angina pectoris Atrial flutter Basal cell carcinoma of scalp Carotid bruit Chest pain Chronic diastolic (congestive) heart failure Chronic insomnia Diastolic dysfunction Essential hypertension Family history of premature coronary heart disease GERD (gastroesophageal reflux disease) History of basal cell carcinoma Hyperlipidemia Left carotid bruit assisted use of drug Mitral valve disorder Mitral valve regurgitation Nonrheumatic mitral valve regurgitation Paroxysmal atrial fibrillation Paroxysmal atrial fibrillation Peripheral vascular disease Scabies Sinus bradycardia Thoracic aortic aneurysm Home Medications latanoprost 0.005 % eye drops 1 drp ophthalmic (eye) [facility] eye health #8 mL 09/30/18 [History Last Taken 03/15/23] potassium 99 mg tablet 99 mg PO DAILY supplement 04/26/19 [History Last Taken 03/16/23] calcium carb-vit [id number]-diba 333 mg-200 unit-133 mg-5 mg tablet 1 tab PO DAILY SUPPLEMENT 05/22/20 [History Last Taken 03/16/23] cholecalciferol (vitamin D3) 25 mcg (1,000 unit) tablet 25 mcg PO DAILY SUPPLEMENT 05/22/20 [History Last Taken 03/16/23] fish, borage, flaxseed oils-omega 3,6,9 cb #1 400 mg-400 mg-400 mg cap 1 cap PO DAILY SUPPLEMENT 05/22/20 [History Last Taken 03/16/23] nitroglycerin 0.4 mg sublingual tablet 0.4 mg sublingual Q5M PRN Chest Pain #25 tabs 03/06/21 [Rx Last Taken Unknown] paroxetine HCl 10 mg tablet 10 mg PO DAILY MOOD 12/20/21 [History Last Taken 03/15/23] turmeric 400 mg capsule 400 mg PO DAILY SUPPLEMENT 12/20/21 [History Last Taken 03/16/23] isosorbide mononitrate 60 mg tablet,extended release 24 hr 60 mg PO DAILY chest pain #90 tabs 11/15/22 [Rx Last Taken 03/16/23] metoprolol tartrate 25 mg tablet 25 mg PO DAILY HEART #90 tabs 11/15/22 [Rx Last Taken 03/16/23] furosemide 20 mg tablet 40 mg PO BID water pill 03/04/23 [History Last Taken 03/15/23] Allergy/AdvReac Type Severity Reaction Status Date / Time alendronate sodium Allergy Unknown Verified 03/16/23 11:42 [From Fosamax] atorvastatin calcium Allergy Unknown Verified 03/16/23 11:42 [From Lipitor] colestipol HCl Allergy Unknown Verified 03/16/23 11:42 [From Colestid] cortisone acetate Allergy Unknown Verified 03/16/23 11:42 [From Cortone] ezetimibe [From Zetia] Allergy Unknown Verified 03/16/23 11:42 gabapentin Allergy Unknown Verified 03/16/23 11:42 goserelin acetate Allergy Unknown Verified 03/16/23 11:42 [From Zoladex] nabumetone Allergy Other Verified 03/16/23 11:42 paroxetine HCl [From Paxil] Allergy Unknown Verified 03/16/23 11:42 rosuvastatin calcium Allergy Unknown Verified 03/16/23 11:42 [From Crestor] sertraline HCl [From Zoloft] Allergy Unknown Verified 03/16/23 11:42 venlafaxine HCl Allergy Unknown Verified 03/16/23 11:42 [From Effexor] carvedilol AdvReac Unknown Verified 03/16/23 11:42 hydrocodone bitartrate AdvReac KEEPS ME Verified 03/16/23 11:42 [From Vicodin] AWAKE Family History Brother CAD (coronary artery disease) Diabetes Myocardial infarction Father CAD (coronary artery disease) Other Family history of premature coronary heart disease Surgical History Aortocoronary bypass status (~2009) History of back surgery History of knee replacement, total History of percutaneous transluminal coronary angioplasty History of right shoulder replacement History of total hysterectomy Presence of stent in coronary artery (~11/13/11) Social History Smoking Status: Never smoker alcohol intake: never substance use type: does not use caffeine: Yes Type: coffee Number of servings: 2 what type of physical activity do you participate in: none seatbelt use: always do you feel safe at home: Yes ROS <SONU Cueto - Last Filed: 03/16/23 14:17> ROS ED ROS Narrative Constitutional: Negative for fever, chills, weight loss, weakness Eyes: Negative for vision loss, vision change, double vision ENT: Negative for any sore throat, ear pain, congestion Cardiovascular: Negative for any palpitations. Positive for chest tightness, chest pain Respiratory: Negative for any cough, sputum production, hemoptysis.positive for dyspnea, dyspnea on exertion, orthopnea Gastrointestinal: Negative for any abdominal pain, nausea, vomiting, diarrhea, constipation, blood in stool, blood in vomit : Negative for any urinary frequency, dysuria, retention, blood in urine Muscle skeletal: Negative for any myalgias, arthralgias, neck pain, back pain Neurological: Negative for any headache, syncope, numbness or tingling, dizziness Skin: Negative for any rashes, lumps, itching, abrasions, lacerations Psychiatric: Negative for any depression, anxiety, stress, suicidal ideation, homicidal ideation Hematologic: Negative for any easy bruising, excessive bruising, easy bleeding Allergies: Negative for any eczema, hives, rash EXAM <SONU Cueto - Last Filed: 03/16/23 14:17> Physical Exam Narrative Exam Narrative: Vital signs reviewed. HEET: Head normocephalic atraumatic, TMs clear bilaterally. Posterior pharynx is clear, moist mucous membranes. Nares clear bilaterally. Neck: Supple with no lymphadenopathy or tenderness. No signs of meningismus. Cardiac: Irregular rate, no murmurs gallops or rubs, equal peripheral pulses bilaterally. Respiratory: Patient has diminished lung sounds to the right lung base. No chest tenderness. Abdomen: Soft, nontender, nondistended. No abdominal bruit or pulsatile masses. No hepatosplenomegaly Extremities: +2 pedal pulse bilaterally to lower extremities, no signs of gross trauma or deformity. Active full range of motion of all extremities. Neuro: Cranial nerves II through XII intact, no focal neurological deficits. Skin: Clean dry and intact with no rash, purpura, petechiae, vesicles or pustules. Backs/flank: No CVA tenderness, no midline spinal tenderness, no deformity. Psych: Normal mood and affect. No SI, HI or acute psychosis. Const Vital Signs: 03/16/23 11:42 03/16/23 11:56 03/16/23 11:57 Temperature 97.2 F L Temperature Source Temporal Pulse Rate 135 H 101 H Respiratory Rate 20 H 20 H Respiratory Effort Normal Non-Labored Respiratory Depth Normal Respiratory Pattern Normal Blood Pressure 158/100 H 173/85 H Blood Pressure Mean 119 114 Pulse Ox 90 99 Oxygen Delivery Method Room Air Nasal Cannula Nasal Cannula Oxygen Flow Rate (L/min) 3 2 03/16/23 12:24 03/16/23 12:48 03/16/23 12:56 Temperature 97.8 F Temperature Source Temporal Pulse Rate 91 87 Respiratory Rate 19 H 17 Respiratory Effort Respiratory Depth Respiratory Pattern Blood Pressure 141/97 H 141/97 H Blood Pressure Mean 111 111 Pulse Ox 97 97 Oxygen Delivery Method Nasal Cannula Nasal Cannula Nasal Cannula Oxygen Flow Rate (L/min) 2 1 1 03/16/23 13:00 03/16/23 14:18 Temperature Temperature Source Pulse Rate 94 94 Respiratory Rate 18 17 Respiratory Effort Respiratory Depth Respiratory Pattern Blood Pressure 157/87 H 168/98 H Blood Pressure Mean 110 121 Pulse Ox 87 94 Oxygen Delivery Method Room Air Oxygen Flow Rate (L/min) <Fabiano Guevara MD - Last Filed: 03/16/23 15:13> Physical Exam Const Vital Signs: 03/16/23 11:42 03/16/23 11:56 03/16/23 11:57 Temperature 97.2 F L Temperature Source Temporal Pulse Rate 135 H 101 H Respiratory Rate 20 H 20 H Respiratory Effort Normal Non-Labored Respiratory Depth Normal Respiratory Pattern Normal Blood Pressure 158/100 H 173/85 H Blood Pressure Mean 119 114 Pulse Ox 90 99 Oxygen Delivery Method Room Air Nasal Cannula Nasal Cannula Oxygen Flow Rate (L/min) 3 2 03/16/23 12:24 03/16/23 12:48 03/16/23 12:56 Temperature 97.8 F Temperature Source Temporal Pulse Rate 91 87 Respiratory Rate 19 H 17 Respiratory Effort Respiratory Depth Respiratory Pattern Blood Pressure 141/97 H 141/97 H Blood Pressure Mean 111 111 Pulse Ox 97 97 Oxygen Delivery Method Nasal Cannula Nasal Cannula Nasal Cannula Oxygen Flow Rate (L/min) 2 1 1 03/16/23 13:00 03/16/23 14:18 Temperature Temperature Source Pulse Rate 94 94 Respiratory Rate 18 17 Respiratory Effort Respiratory Depth Respiratory Pattern Blood Pressure 157/87 H 168/98 H Blood Pressure Mean 110 121 Pulse Ox 87 94 Oxygen Delivery Method Room Air Oxygen Flow Rate (L/min) MATTIE <SONU Cueto - Last Filed: 03/16/23 14:17> MATTIE Lab Data Labs: Laboratory Results - last 24 hr 03/16/23 03/16/23 12:15 12:43 WBC 5.8 RBC 3.44 L Hgb 11.1 L Hct 34.1 L MCV 99.1 H MCH 32.3 H MCHC 32.6 RDW Std Deviation 68.3 H RDW Coeff of Zuleima 18.7 H Plt Count 297 MPV 9.5 Immature Gran % (Auto) 0.200 Neut % (Auto) 71.8 H Lymph % (Auto) 16.0 L Dade % (Auto) 9.1 Eos % (Auto) 1.9 Baso % (Auto) 1.0 Absolute Neuts (auto) 4.2 Absolute Lymphs (auto) 0.93 Nucleated RBC % 0.5 Anisocytosis 2+ Microcytosis 1+ Macrocytosis 1+ PT 18.3 H INR 1.5 Sodium 139 Potassium 2.9 L Chloride 100 Carbon Dioxide 32.0 Anion Gap 7 BUN 21 H Creatinine 1.05 H Estim Creat Clear Calc 29.29 Est GFR (MDRD) Af Amer 64 Est GFR (MDRD) Non-Af 53 L BUN/Creatinine Ratio 20.0 Glucose 129 H Calcium 9.0 Troponin I High Sens 21 B-Natriuretic Peptide 1613.5 H Urine Color Yellow Urine Clarity Clear Urine pH 7.0 Ur Specific [place] 1.010 Urine Protein Negative Urine Glucose (UA) Normal Urine Ketones Negative Urine Occult Blood 10 H Urine Nitrite Negative Urine Bilirubin Negative Urine Urobilinogen Normal Ur Leukocyte Esterase 25 H Urine RBC 0-5 SEEN Urine WBC 0-5 SEEN Ur Squamous Epith Cells 0 SEEN Urine Bacteria 1+ Urine Mucus 0 SEEN Radiography Diagnostic Testing: Clinical Impression(s) from Imaging Studies Chest X-Ray 03/16/23 12:30 IMPRESSION: Mild pulmonary vascular congestion. Small right pleural effusion with overlying atelectasis which is decreased in size when compared with the prior exam. Electronically Signed: Andrade Raza MD at 13:14 EST , EKG Atrial fibrillation: Attestation: I personally reviewed and interpreted this EKG as follows: Comments: Atrial fibrillation with a rate of 99 bpm, QRS duration 82 ms, no acute ST elevation, no acute infarct noted. Treatment and Re-Evaluation :: Patient appears to be in mild distress on room air, patient was 87%. On 2 L, the patient is tolerating well. Presenting to the emergency department for complaints of left-sided chest pain, left arm pain, shortness of breath on exertion. Per the daughter, the patient was also slightly confused this morning. Patient received a full cardiac work-up. Differential diagnosis includes CHF exacerbation, urinary tract infection, COVID-19, influenza, community-acquired pneumonia, ACS or DE. Patient will receive 2 sets of troponins, proBNP, CBC, BMP concerning for any leukocytosis, electrolyte imbalance. Chest x-ray looking for any fluid overload, pneumonia, all radiologic examinations were read, reviewed by the emergency department attending. From these reads, a plan of care will be put in place. Patient on reevaluation is resting comfortably, when the patient does start to speak, she is dropped between 89 to 88%. With any sort of movement, the patient does get significantly short of breath. Patient's chest x-ray does show a small right pleural effusion with overlying atelectasis this is decreased in size compared to previous exam. Patient's laboratory values show a baseline CBC, PT/INR was unremarkable. Patient's chemistries do show a low potassium at 2.9, this was replaced orally, kidney function is baseline. Patient's proBNP was elevated at 1613, patient on February 24, 2023 was 962. Troponin was negative at 21. Urinalysis negative for infection, patient had no COVID-19 or influenza on rapid test. At this time, secondary to the worsening shortness of breath, weakness, hypoxia, I do believe the patient needs to be admitted to the hospital. Patient be admitted with CHF exacerbation, fluid overload. Patient given 40 mg of IV Lasix, I will speak with hospitalist for admission. <Fabiano Guevara MD - Last Filed: 03/16/23 15:13> [facility] MDM Narrative Medical decision making narrative: Dr. Guevara: I have personally performed a face to face assessment of the patient and have reviewed the CAROLANN Note. I performed a substantive portion of the visit including all aspects of the following. My manuel findings include: History is shortness of breath with history of CHF, recent admission 3 weeks ago. Lasix increased for short period of time. Exam is afebrile. Vital signs noted. Decreased breath sounds right base. Occasional rales. No respiratory distress. Medical Decision Making: Check chest x-ray. Check labs. Increase in BNP. Hypoxic on room air at rest/while talking. Admit. Discussed with hospitalist, Dr. Bourne. Chest x-ray in 1 view interpreted by myself independently demonstrates right pleural effusion but improved with CHF and pulmonary vascular congestion. I reviewed the radiology report which confirms my independent interpretation. Other additions or changes: [None] History & Record Review Discussion w/independent historian: Patient and Family Additional record(s) reviewed:: Prior ED visit and Prior labs Lab Data Attestation: I reviewed the patient's lab results. Labs: Laboratory Results - last 24 hr 03/16/23 03/16/23 12:15 12:43 WBC 5.8 RBC 3.44 L Hgb 11.1 L Hct 34.1 L MCV 99.1 H MCH 32.3 H MCHC 32.6 RDW Std Deviation 68.3 H RDW Coeff of Zuleima 18.7 H Plt Count 297 MPV 9.5 Immature Gran % (Auto) 0.200 Neut % (Auto) 71.8 H Lymph % (Auto) 16.0 L Dade % (Auto) 9.1 Eos % (Auto) 1.9 Baso % (Auto) 1.0 Absolute Neuts (auto) 4.2 Absolute Lymphs (auto) 0.93 Nucleated RBC % 0.5 Anisocytosis 2+ Microcytosis 1+ Macrocytosis 1+ PT 18.3 H INR 1.5 Sodium 139 Potassium 2.9 L Chloride 100 Carbon Dioxide 32.0 Anion Gap 7 BUN 21 H Creatinine 1.05 H Estim Creat Clear Calc 29.29 Est GFR (MDRD) Af Amer 64 Est GFR (MDRD) Non-Af 53 L BUN/Creatinine Ratio 20.0 Glucose 129 H Calcium 9.0 Troponin I High Sens 21 B-Natriuretic Peptide 1613.5 H Urine Color Yellow Urine Clarity Clear Urine pH 7.0 Ur Specific [place] 1.010 Urine Protein Negative Urine Glucose (UA) Normal Urine Ketones Negative Urine Occult Blood 10 H Urine Nitrite Negative Urine Bilirubin Negative Urine Urobilinogen Normal Ur Leukocyte Esterase 25 H Urine RBC 0-5 SEEN Urine WBC 0-5 SEEN Ur Squamous Epith Cells 0 SEEN Urine Bacteria 1+ Urine Mucus 0 SEEN Radiography Chest X-Ray - ED: 1 View and Read by ED Physician Diagnostic Testing: Clinical Impression(s) from Imaging Studies Chest X-Ray 03/16/23 12:30 IMPRESSION: Mild pulmonary vascular congestion. Small right pleural effusion with overlying atelectasis which is decreased in size when compared with the prior exam. Electronically Signed: Andrade Raza MD at 13:14 EST , Discharge Plan Dx/Rx/DC Orders Clinical Impression: Acute exacerbation of CHF (congestive heart failure), A-fib, Fluid overload, unspecified, Hypoxia, Acute hypokalemia Disposition Disposition: Acute Care Hospital [facility]
[2023-03-16] MEDS: Aspirin 81 MG TAB.CHEW 324 MG PO (12:22)
--- NOTE | 2023-03-16 12:30 | RAD_ITS ---
STUDY: X-RAY CHEST REASON FOR EXAM: Female, 87 years old. Chest pain TECHNIQUE: Frontal view of the chest COMPARISON: 02/24/2023 FINDINGS: There is a small right pleural effusion with overlying atelectasis. This is decreased in size when compared with the prior exam. There is no left-sided effusion. There is no pneumothorax. There are mild congestive changes noted. The patient is status post sternotomy. The heart is stable in size. The visualized osseous structures are within normal limits. RAD/Chest 1 View (Portable) IMPRESSION: Mild pulmonary vascular congestion. Small right pleural effusion with overlying atelectasis which is decreased in size when compared with the prior exam. Electronically Signed: Andrade Raza MD at 13:14 EST ,
[2023-03-16 12:40] LABS: Absolute Lymphocyte Count 0.93 X10^3/uL (0.83-4.51); Absolute Neutrophil Count 4.2 X10^3/uL (2.0-7.7); Basophil# 0.06 X10^3/uL; Eosinophil# 0.11 X10^3/uL; Eosinophils% 1.9 % (0-5); Hematocrit 34.1 % (37-47); Hemoglobin 11.1 g/dL (12.0-15.0); Lymphocyte # 0.93 X10^3/ul (0.83-4.51); Mean Corp Hgb Conc 32.6 g/dL (32-36); Mean Corpuscular Hgb 32.3 pg (27.0-32.0); Mean Corpuscular Volume 99.1 fL (81-99); Mean Platelet Vol. 9.5 fl (6.2-12.0); Monocyte# 0.53 X10^3/uL; Monocyte% 9.1 % (0-10); NRBC Flagged by Analyzer 0.5 % (0-5); Neutrophil # 4.16 X10^3/uL (2.7-7.7); Neutrophil % 71.8 % (47-70); POSITIVE MORPHOLOGY YES; Platelet Count 297 K/mm3 (150-450); RBC Distribution Width CV 18.7 % (11.6-14.6); RBC Distribution Width SD 68.3 fl (35.1-43.9); Red Blood Count 3.44 M/mm3 (4.2-5.4); White Blood Count 5.8 K/mm3 (4.4-11.0)
[2023-03-16 12:45] LABS: Mucous, Urine 0 SEEN /hpf (<or=2+); Squamous Epithelial Cells - UA 0 SEEN /hpf (5-10)
[2023-03-16 12:47] LABS: Color, Urine Yellow (Yellow); Glucose, Dipstick Normal (Normal); Ketone-Dipstick Negative (Negative); Leukocyte Esterase-Dipstick 25 /ul (Negative); Nitrite-Dipstick Negative (Negative); Occult Blood-Urine 10 /ul (Negative); Protein-Dipstick Negative (Negative); Urine Bilirubin Dipstick Negative (Negative); Urine Clarity Clear (Clear); Urine Urobilinogen Normal (Normal)
[2023-03-16 12:47] LABS: Differential Indicated SCAN CRITERIA MET
[2023-03-16 12:48] LABS: Anion Gap 7 (5-15); BUN 21 mg/dL (7-18); Chloride 100 mmol/L (98-107); Creatinine, Serum 1.05 mg/dL (0.55-1.02); EST Glomerular Filtration Rate 53 mL/min (>60); Est Glom Filt Rate - Afr Amer 64 mL/min (>60); Estimated Creatinine Clearance 29.29 ml/min; Glucose 129 mg/dL (74-106); Potassium 2.9 mmol/L (3.5-5.1); Sodium Level 139 mmol/L (136-145); Troponin-I HS (w/2H Reflex) 21 pg/mL (3.0-54.0)
[2023-03-16 12:51] LABS: International Normalized Ratio 1.5; Prothrombin Time (Protime)PT. 18.3 SECONDS (11.7-14.9)
[2023-03-16 13:00] LABS: Anisocytosis 2+
[2023-03-16 13:01] LABS: Macrocytosis 1+; Microcytosis 1+
[2023-03-16 13:30] LABS: BNP,B-Type NATRIURETIC PEPTIDE 1613.5 pg/mL (0-100)
[2023-03-16 13:37] LABS: Red Blood Cells-Urine 0-5 SEEN /hpf (0-5); White Blood Cells 0-5 SEEN /hpf (0-5)
[2023-03-16 13:38] LABS: Bacteria 1+ /hpf (None Seen)
--- NOTE | 2023-03-16 14:07 | PCM.HP.STD ---
HPI - General General Date of Admission: 03/16/23 Date of Service: 03/16/23 Chief Complaint: Worsening dyspnea on exertion HPI Narrative LANNY DIALLO, is a 87 F who presented to [facility] ED on 03/16/2023 with worsening shortness of breath. Patient seen at bedside in the ED, daughter present. Patient is fairly thin and chronically ill-appearing but is otherwise sitting fairly comfortably in bed, conversing normally, no acute distress. Patient denies any shortness of breath at rest currently but did have shortness of breath when she was walked on the ED prior to my interview. Patient was given a dose of IV Lasix prior to my interview and states he has urinated 3 times with this. Patient states he follows with cardiology in the office and saw him a few weeks ago. No medication changes were made at that time. Patient reports taking her Lasix and other home medications as prescribed recently for the most part. Patient does have a history of anxiety/depression and takes Paxil at home; states at times she will take extra doses of Paxil when she is feeling more anxious. Patient lives at home by herself, daughter lives close by. Daughter does note her concern about patient living on her own but patient has been fairly adamant about wanting to remain at home. Patient denies any chest pain, cough, sputum production, abdominal pain or discomfort, lightheadedness or dizziness. No other acute concerns this time. [facility] Medical History Aortic insufficiency Aortic valve disorder Ascending aortic aneurysm Atherosclerosis of coronary artery bypass graft without angina pectoris Atherosclerotic heart disease of [place] coronary artery without angina pectoris Atrial flutter Basal cell carcinoma of scalp Carotid bruit Chest pain Chronic diastolic (congestive) heart failure Chronic insomnia Diastolic dysfunction Essential hypertension Family history of premature coronary heart disease GERD (gastroesophageal reflux disease) History of basal cell carcinoma Hyperlipidemia 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 Mitral valve disorder Mitral valve regurgitation Nonrheumatic mitral valve regurgitation Paroxysmal atrial fibrillation Paroxysmal atrial fibrillation Peripheral vascular disease Scabies Sinus bradycardia Thoracic aortic aneurysm Home Medications latanoprost 0.005 % eye drops 1 drp ophthalmic (eye) [facility] eye health #8 mL 09/30/18 [History Last Taken 03/15/23] potassium 99 mg tablet 99 mg PO DAILY supplement 04/26/19 [History Last Taken 03/16/23] calcium carb-vit [id number] 333 mg-200 unit-133 mg-5 mg tablet 1 tab PO DAILY SUPPLEMENT 05/22/20 [History Last Taken 03/16/23] cholecalciferol (vitamin D3) 25 mcg (1,000 unit) tablet 25 mcg PO DAILY SUPPLEMENT 05/22/20 [History Last Taken 03/16/23] fish, borage, flaxseed oils-omega 3,6,9 cb #1 400 mg-400 mg-400 mg cap 1 cap PO DAILY SUPPLEMENT 05/22/20 [History Last Taken 03/16/23] nitroglycerin 0.4 mg sublingual tablet 0.4 mg sublingual Q5M PRN Chest Pain #25 tabs 03/06/21 [Rx Last Taken Unknown] paroxetine HCl 10 mg tablet 10 mg PO DAILY MOOD 12/20/21 [History Last Taken 03/15/23] turmeric 400 mg capsule 400 mg PO DAILY SUPPLEMENT 12/20/21 [History Last Taken 03/16/23] isosorbide mononitrate 60 mg tablet,extended release 24 hr 60 mg PO DAILY chest pain #90 tabs 11/15/22 [Rx Last Taken 03/16/23] metoprolol tartrate 25 mg tablet 25 mg PO DAILY HEART #90 tabs 11/15/22 [Rx Last Taken 03/16/23] furosemide 20 mg tablet 40 mg PO BID water pill 03/04/23 [History Last Taken 03/15/23] latanoprost 0.005 % eye drops 1 drp EACH EYE QPM eye pressur 03/16/23 [History Last Taken Unknown] Allergy/AdvReac Type Severity Reaction Status Date / Time alendronate sodium Allergy Unknown Verified 03/16/23 11:42 [From Fosamax] atorvastatin calcium Allergy Unknown Verified 03/16/23 11:42 [From Lipitor] colestipol HCl Allergy Unknown Verified 03/16/23 11:42 [From Colestid] cortisone acetate Allergy Unknown Verified 03/16/23 11:42 [From Cortone] ezetimibe [From Zetia] Allergy Unknown Verified 03/16/23 11:42 gabapentin Allergy Unknown Verified 03/16/23 11:42 goserelin acetate Allergy Unknown Verified 03/16/23 11:42 [From Zoladex] nabumetone Allergy Other Verified 03/16/23 11:42 paroxetine HCl [From Paxil] Allergy Unknown Verified 03/16/23 11:42 rosuvastatin calcium Allergy Unknown Verified 03/16/23 11:42 [From Crestor] sertraline HCl [From Zoloft] Allergy Unknown Verified 03/16/23 11:42 venlafaxine HCl Allergy Unknown Verified 03/16/23 11:42 [From Effexor] carvedilol AdvReac Unknown Verified 03/16/23 11:42 hydrocodone bitartrate AdvReac KEEPS ME Verified 03/16/23 11:42 [From Vicodin] AWAKE Family History Brother CAD (coronary artery disease) Diabetes Myocardial infarction Father CAD (coronary artery disease) Other Family history of premature coronary heart disease Surgical History Aortocoronary bypass status (~2009) History of back surgery History of knee replacement, total History of percutaneous transluminal coronary angioplasty History of right shoulder replacement History of total hysterectomy Presence of stent in coronary artery (~11/13/11) Social History Smoking Status: Never smoker alcohol intake: never substance use type: does not use caffeine: Yes Type: coffee Number of servings: 2 what type of physical activity do you participate in: none seatbelt use: always do you feel safe at home: Yes ROS Constitutional Constitutional: Denies change in weight, chills, fatigue, fever(s) or weakness Eyes Eyes: Denies change in vision Cardiovascular Cardiovascular: Reports dyspnea on exertion; Denies chest pain, edema, lightheadedness, palpitations or rapid heart rate Respiratory/Chest Respiratory/Chest: Denies cough, productive cough, shortness of breath at rest or wheezing Gastrointestinal Gastrointestinal: Denies abdominal pain, constipation, diarrhea, nausea or vomiting Genitourinary Genitourinary: Denies dysuria Musculoskeletal Musculoskeletal: Denies arthralgias or back pain Neurologic Neurologic: Denies dizziness, focal weakness, headache(s), numbness or paresthesias Vital Signs Vital Signs Vital Signs: 03/16/23 11:42 03/16/23 11:56 03/16/23 11:57 Temperature 97.2 F L Temperature Source Temporal Pulse Rate 135 H 101 H Respiratory Rate 20 H 20 H Respiratory Effort Normal Non-Labored Respiratory Depth Normal Respiratory Pattern Normal Blood Pressure 158/100 H 173/85 H Blood Pressure Mean 119 114 Pulse Ox 90 99 Oxygen Delivery Method Room Air Nasal Cannula Nasal Cannula Oxygen Flow Rate (L/min) 3 2 03/16/23 12:24 03/16/23 12:48 03/16/23 12:56 Temperature 97.8 F Temperature Source Temporal Pulse Rate 91 87 Respiratory Rate 19 H 17 Respiratory Effort Respiratory Depth Respiratory Pattern Blood Pressure 141/97 H 141/97 H Blood Pressure Mean 111 111 Pulse Ox 97 97 Oxygen Delivery Method Nasal Cannula Nasal Cannula Nasal Cannula Oxygen Flow Rate (L/min) 2 1 1 Weight Weight: 50.122 kg Body Mass Index (BMI) 20.2 Physical Exam Const alert, oriented x3 and no apparent distress Constitutional Narrative: Elderly female, thin and chronically ill-appearing, sitting comfortably in bed, conversing normally, no acute distress. General Appearance: cooperative and comfortable HEENT normocephalic, head/scalp atraumatic, hearing grossly normal bilaterally, nasal mucous membranes and turbinates normal and moist oral mucous membranes Eyes PERRL, EOMs intact bilaterally and conjunctivae normal Neck full ROM, no lymphadenopathy and supple Lymph Lymphatic: no lymphadenopathy noted Chest inspection of chest normal Resp Resp Narrative: Mildly decreased breath sounds bilaterally. No wheezing or crackles noted. Satting in high 90s on 2 L nasal cannula, no increased work of breathing noted. Cardio no murmurs and peripheral pulses 2+ throughout Cardio Narrative: A-fib, rate controlled. GI normal to inspection, nondistended, normoactive bowel sounds, soft to palpation, non-tender and non-distended Back/Spine normal ROM Extremity normal to inspection and full ROM Extremity Narrative: +1-2 bilateral lower extremity edema. Skin no rashes or lesions noted Neuro moves all extremities and no focal motor deficits Speech: speech normal Psych mental status grossly normal Results Lab / Micro Data 03/16/23 12:15 03/16/23 12:15 Labs: Laboratory Results - last 24 hr 03/16/23 12:15: WBC 5.8, RBC 3.44 L, Hgb 11.1 L, Hct 34.1 L, MCV 99.1 H, MCH 32.3 H, MCHC 32.6, RDW Std Deviation 68.3 H, RDW Coeff of [place] 18.7 H, Plt Count 297, MPV 9.5, Immature Gran % (Auto) 0.200, Neut % (Auto) 71.8 H, Lymph % (Auto) 16.0 L, [place] % (Auto) 9.1, Eos % (Auto) 1.9, Baso % (Auto) 1.0, Absolute Neuts (auto) 4.2, Absolute Lymphs (auto) 0.93, Nucleated RBC % 0.5, Anisocytosis 2+, Microcytosis 1+, Macrocytosis 1+, PT 18.3 H, INR 1.5, Sodium 139, Potassium 2.9 L, Chloride 100, Carbon Dioxide 32.0, Anion Gap 7, BUN 21 H, Creatinine 1.05 H, Estim Creat Clear Calc 29.29, Est GFR (MDRD) Af Amer 64, Est GFR (MDRD) Non-Af 53 L, BUN/Creatinine Ratio 20.0, Glucose 129 H, Calcium 9.0, Troponin I High Sens 21, B-Natriuretic Peptide 1613.5 H 03/16/23 12:43: Urine Color Yellow, Urine Clarity Clear, Urine pH 7.0, Ur Specific [place] 1.010, Urine Protein Negative, Urine Glucose (UA) Normal, Urine Ketones Negative, Urine Occult Blood 10 H, Urine Nitrite Negative, Urine Bilirubin Negative, Urine Urobilinogen Normal, Ur Leukocyte Esterase 25 H, Urine RBC 0-5 SEEN, Urine WBC 0-5 SEEN, Ur Squamous Epith Cells 0 SEEN, Urine Bacteria 1+, Urine Mucus 0 SEEN Micro: Microbiology 03/16/23 12:30 Nasal Secretion SARS-CoV-2 & FLU Antigen (Rapid) - Final Imagaing Radiology Impression Chest X-Ray 03/16/23 12:30 IMPRESSION: Mild pulmonary vascular congestion. Small right pleural effusion with overlying atelectasis which is decreased in size when compared with the prior exam. Electronically Signed: Andrade Raza MD at 13:14 EST , Assessment & Plan Assessment/Plan (1) (HFpEF) heart failure with preserved ejection fraction: (2) Hypoxia: PLAN: Plan Patient is an 87-year-old female who presented to [facility] ED on 03/16/2023 with worsening shortness of breath. 1. Mild HFpEF exacerbation; hypoxia on exertion Follows with cardiology, last office visit on 03/04/2023. No medication changes made at that time. O2 saturation in low 90s at rest on admission, dropped to mid 80s with exertion. Chest x-ray showed mild pulmonary vascular congestion, small right pleural effusion. BNP 1613, previous BNP 962 on 02/24. Unclear etiology for mild exacerbation, patient reports taking home medications as prescribed. EKG on admit showed rate controlled A-fib. Troponin negative x 2. Last echo in 07/2022 showed EF 55%, mild enlarged LA, mild MV and AV insufficiency, unable to assess diastolic dysfunction. ? Admit under inpatient status to PCU. Cardiology consulted. Repeat echo ordered. Given 1 dose of IV Lasix 40 mg in the ED with good urine output, will start IV Lasix 40 mg twice daily for now. Monitor BMP and urine output. Wean supplemental oxygen as able. Suspect patient may need O2 ambulatory test prior to discharge. 2. Debility Patient lives at home by herself, daughter lives close by. Daughter does have concern for patient living by herself but patient has been fairly adamant about wanting to live at home. Patient reports mild difficulty with ambulation at baseline, attributes this to her history of previous back surgery, total knee replacement, right shoulder replacement. ? PT/OT/case management consulted. 3. History of CAD s/p CABG and stenting, PAD s/p stenting of popliteal artery, hypertension, hyperlipidemia ? Stable. Continue home Lopressor, isosorbide mononitrate. Patient notably has an extensive allergy list that includes atorvastatin, rosuvastatin and Zetia. 4. Atrial fibrillation Follows with cardiology as noted above. EKG showed rate controlled A-fib on admit. Patient notably was intolerant to anticoagulation secondary to bleeding and bruising, and does not wish to reattempt anticoagulation. [id number] score noted to be 6. ? Continue home Lopressor 25 mg daily. 5. Hypokalemia Potassium 2.9 on admit. Unclear etiology, may be secondary to GI losses. ? Monitor daily potassium, replete as needed. Magnesium ordered. Chronic medical conditions: ? Chronic normocytic anemia: Hemoglobin 11.1, MCV 99 on admit. Stable at baseline. ? Anxiety/depression: Daughter notes patient has fairly significant anxiety at baseline despite trying many medications in the past. Patient reports taking her Paxil daily, but does states she occasionally takes extra doses of Paxil when she is more anxious. Educated patient on not taking medication as prescribed. Will continue home Paxil at this time. ? Extensive list of allergies to medications: Please note extensive list of allergies reported by patient. DVT prophylaxis: SCDs CODE STATUS: Full code, verified Expected disposition: TBD Total clinical time spent by myself addressing the patient's medical issues, reviewing all the data, and collaborating with patient's care team: 55 minutes. Charges/Coding Visit Charges Inpatient E&M: 10952 Init Hosp L2
[2023-03-16] MEDS: Potassium Chloride Oral Tablet 20 MEQ 40 MEQ PO (14:12)
[2023-03-16] MEDS: Furosemide 40 MG/4 ML Vial IV ×2 (14:12→19:01)
[2023-03-16 14:24] LABS: Reflex Troponin-HS? (from REC) Y
[2023-03-16 15:11] LABS: Troponin-I HS 24 pg/mL (3.0-54.0)
[2023-03-16 16:21] LABS: Magnesium 1.8 mg/dL (1.6-2.6)
[2023-03-16] MEDS: 0.9% Saline Lock 10 ML Syringe IV (19:02)
--- NOTE | 2023-03-16 21:47 | ECHOD_ITS ---
Reason For Study: CHF Procedure This was a 2D Doppler, Color Flow transthoracic echocardiogram. Exam performed portable in patient room. Left Ventricle Normal LV size. Left ventricular systolic function is lower limits of normal. The estimated ejection fraction is 50 %. No regional wall motion abnormalities noted. Right Ventricle Normal RV size. Normal systolic function. Atria The left atrium is mildly enlarged. The right atrium is moderately enlarged. Mitral Valve Bileaflet diffuse mitral valve thickening. Mild-Moderate (1-2+) eccentric mitral valve insufficiency. Tricuspid Valve Normal tricuspid valve. Moderate (2+) tricuspid valve insufficiency. Pulmonary artery systolic pressure is 65 mmHg. Moderate pulmonary hypertension. Aortic Valve Trisinus/trileaflet aortic valve. Mild (1+) aortic valve insufficiency. Pulmonic Valve Normal pulmonic valve. Mild (1+) pulmonic valve insufficiency. Great Vessels Normal aortic root. The pulmonary artery is normal size. Plethoric inferior vena cava. Pericardium/Pleural No pericardial effusion. MMode/2D Measurements & Calculations LVIDd: 3.9 cm IVSd: 1.1 cm LVOT diam: 1.6 cm LVIDs: 3.1 cm LVPWd: 1.2 cm LVOT area: 2.0 cm2 RVDd: 4.0 cm FS: 21.6 % Ao root diam: 3.5 cm LAV(MOD-bp): 54.7 ml LVAd ap4: 21.6 cm2 LAV(MOD-bp) Indexed: 37.0 ml/m2 LVLd ap4: 7.4 cm LAV(MOD-sp2): 42.5 ml EDV(MOD-sp4): 52.4 ml LAV(MOD-sp4): 61.7 ml EDV(sp4-el): 53.9 ml LVAs ap4: 14.9 cm2 LVLs ap4: 6.3 cm ESV(MOD-sp4): 30.1 ml ESV(sp4-el): 29.7 ml EF(MOD-sp4): 42.6 % EF(sp4-el): 44.8 % SV(MOD-sp4): 22.4 ml SV(sp4-el): 24.2 ml LA A4 area: 22.4 cm2 LA dimension(2D): 3.6 cm RA A4 area: 26.2 cm2 Doppler Measurements & Calculations MV E max clementina: 100.9 cm/sec Ao V2 max: 121.5 cm/sec LV V1 max: 101.6 cm/sec Ao max P.9 mmHg LV V1 max P.2 mmHg Ao V2 mean: 81.3 cm/sec LV V1 mean P.3 mmHg Ao mean P.0 mmHg LV V1 mean: 70.9 cm/sec Ao V2 VTI: 22.9 cm LV V1 VTI: 18.2 cm AV (velocity ratio): 0.79 MATT(I,D): 1.6 cm2 MATT(V,D): 1.7 cm2 MR max clementina: 580.8 cm/sec SV(LVOT): 36.7 ml TR max clementina: 387.1 cm/sec MR max P.9 mmHg TR max P.9 mmHg ECHO/Echo Complete Interpretation Summary Normal LV size. Left ventricular systolic function is lower limits of normal. The estimated ejection fraction is 50 %. Mild-Moderate (1-2+) eccentric mitral valve insufficiency. Pulmonary artery systolic pressure is 65 mmHg. Moderate pulmonary hypertension. Ordering Physician: Connor Bourne Referring Physician: Rachel Bernabe Performed By: Preeti Chavez RCS
[2023-03-17] VITALS (10 sets, daily range): BP systolic 135–165; BP diastolic 64–95; PULSE 82–132; RESP 16–18; TEMP 36.4–36.9; O2SAT 88–98; BMI 19.8
--- NOTE | 2023-03-17 07:09 | CON.PCM.CA_ITS ---
Assessment & Plan Assessment/Plan (1) A-fib: QUALIFIERS: Atrial fibrillation type: permanent Qualified Code(s): I48.21 - Permanent atrial fibrillation PLAN: She does present with atrial fibrillation with rapid ventricular response rate which I suspect is contributing to her shortness of breath. I would recommend that we increase her beta-danica to 50 mg of metoprolol tartrate twice daily and repeat her echocardiogram. As noted previously she is not interested in taking anticoagulation. The risks have been explained to her and she understands. (2) (HFpEF) heart failure with preserved ejection fraction: QUALIFIERS: Heart failure chronicity: chronic Qualified Code(s): I50.32 - Chronic diastolic (congestive) heart failure PLAN: She does have heart failure with preserved ejection fraction likely contributed to by her atrial fibrillation as well as her mild mitral regurgitation. She will be on Lasix for now and will be transition to oral Lasix. (3) Essential hypertension: PLAN: She does have a history of hypertension. The plan will be to continue with the current medical therapy. (4) Atherosclerosis of coronary artery bypass graft without angina pectoris: QUALIFIERS: [place] vs. transplanted heart: [place] heart Qualified Code(s): I25.810 - Atherosclerosis of coronary artery bypass graft(s) without angina pectoris PLAN: She does have atherosclerotic cardiovascular disease status post coronary bypass surgery. She does not appear to have an acute coronary syndrome and we will pursue medical therapy at this time. Thank you for allowing me to participate in the care of your patient. Please don't hesitate to call if any issues arise. HPI Consult Data Date of Consult: 03/17/23 HPI Narrative HPI Narrative: LANNY DIALLO, is a 87 F who presents to the emergency room with complaints of shortness of breath which she says has been happening over the last few days. She does have a history of coronary artery disease status post coronary bypass surgery in 2009 with a PRO to the LAD, saphenous vein graft to the circumflex artery, and saphenous vein graft to the right coronary artery. She subsequently had saphenous clinic graft stenting to the obtuse marginal branch in 2011. In addition she has had valvular heart disease and paroxysmal atrial fibrillation as well as diastolic heart failure. Compounding this is hypertension hyperlipidemia and thoracic aortic aneurysm. She lives alone but she says that her son lives next door. She was seen in the emergency room was noted to be short of breath with minimally elevated natruretic peptide level and a decision was made to admit her. She denies any chest pain or paroxysmal nocturnal dyspnea or pedal edema. She underwent a cardiac catheterization in 2017 and at that time her grafts were noted to be patent though she did have some distal disease in the right posterior descending artery. She has also not wanted to be on anticoagulation in the past. She did have an echocardiogram in July 2022 demonstrating preserved ejection fraction with mild mitral regurgitation. Cardiology was called to see her and at the moment she appears to be comfortable. [facility] Medical History (Updated 03/17/23 @ 07:[address] Chase Pham MD) Aortic insufficiency Aortic valve disorder Ascending aortic aneurysm Atherosclerosis of coronary artery bypass graft without angina pectoris Atherosclerotic heart disease of [place] coronary artery without angina pectoris Atrial flutter Basal cell carcinoma of scalp Carotid bruit Chest pain Chronic diastolic (congestive) heart failure Chronic insomnia Diastolic dysfunction Essential hypertension Family history of premature coronary heart disease GERD (gastroesophageal reflux disease) History of basal cell carcinoma Hyperlipidemia Left carotid bruit FDC use of drug Mitral valve disorder Mitral valve regurgitation Nonrheumatic mitral valve regurgitation Paroxysmal atrial fibrillation Paroxysmal atrial fibrillation Peripheral vascular disease Scabies Sinus bradycardia Thoracic aortic aneurysm Home Medications latanoprost 0.005 % eye drops 1 drp ophthalmic (eye) [facility] eye health #8 mL 09/30/18 [History Last Taken 03/15/23] potassium 99 mg tablet 99 mg PO DAILY supplement 04/26/19 [History Last Taken 03/16/23] calcium carb-vit [id number] 333 mg-200 unit-133 mg-5 mg tablet 1 tab PO DAILY SUPPLEMENT 05/22/20 [History Last Taken 03/16/23] cholecalciferol (vitamin D3) 25 mcg (1,000 unit) tablet 25 mcg PO DAILY SUPPLEMENT 05/22/20 [History Last Taken 03/16/23] fish, borage, flaxseed oils-omega 3,6,9 cb #1 400 mg-400 mg-400 mg cap 1 cap PO DAILY SUPPLEMENT 05/22/20 [History Last Taken 03/16/23] nitroglycerin 0.4 mg sublingual tablet 0.4 mg sublingual Q5M PRN Chest Pain #25 tabs 03/06/21 [Rx Last Taken Unknown] paroxetine HCl 10 mg tablet 10 mg PO DAILY MOOD 12/20/21 [History Last Taken 03/15/23] turmeric 400 mg capsule 400 mg PO DAILY SUPPLEMENT 12/20/21 [History Last Taken 03/16/23] isosorbide mononitrate 60 mg tablet,extended release 24 hr 60 mg PO DAILY chest pain #90 tabs 11/15/22 [Rx Last Taken 03/16/23] metoprolol tartrate 25 mg tablet 25 mg PO DAILY HEART #90 tabs 11/15/22 [Rx Last Taken 03/16/23] furosemide 20 mg tablet 40 mg PO BID water pill 03/04/23 [History Last Taken 03/15/23] latanoprost 0.005 % eye drops 1 drp EACH EYE QPM eye pressur 03/16/23 [History Last Taken Unknown] Allergy/AdvReac Type Severity Reaction Status Date / Time alendronate sodium Allergy Unknown Verified 03/16/23 11:42 [From Fosamax] atorvastatin calcium Allergy Unknown Verified 03/16/23 11:42 [From Lipitor] colestipol HCl Allergy Unknown Verified 03/16/23 11:42 [From Colestid] cortisone acetate Allergy Unknown Verified 03/16/23 11:42 [From Cortone] ezetimibe [From Zetia] Allergy Unknown Verified 03/16/23 11:42 gabapentin Allergy Unknown Verified 03/16/23 11:42 goserelin acetate Allergy Unknown Verified 03/16/23 11:42 [From Zoladex] nabumetone Allergy Other Verified 03/16/23 11:42 paroxetine HCl [From Paxil] Allergy Unknown Verified 03/16/23 11:42 rosuvastatin calcium Allergy Unknown Verified 03/16/23 11:42 [From Crestor] sertraline HCl [From Zoloft] Allergy Unknown Verified 03/16/23 11:42 venlafaxine HCl Allergy Unknown Verified 03/16/23 11:42 [From Effexor] carvedilol AdvReac Unknown Verified 03/16/23 11:42 hydrocodone bitartrate AdvReac KEEPS ME Verified 03/16/23 11:42 [From Vicodin] AWAKE Family History Brother CAD (coronary artery disease) Diabetes Myocardial infarction Father CAD (coronary artery disease) Other Family history of premature coronary heart disease Surgical History Aortocoronary bypass status (~2009) History of back surgery History of knee replacement, total History of percutaneous transluminal coronary angioplasty History of right shoulder replacement History of total hysterectomy Presence of stent in coronary artery (~11/13/11) Social History Smoking Status: Never smoker alcohol intake: never substance use type: does not use caffeine: Yes Type: coffee Number of servings: 2 what type of physical activity do you participate in: none seatbelt use: always do you feel safe at home: Yes Physical Exam Const alert, oriented x3 and no apparent distress General Appearance: cooperative HEENT hearing grossly normal bilaterally Head and Scalp: atraumatic Eyes EOMs intact bilaterally Neck General: normal visual inspection Chest inspection of chest normal and palpation of chest normal Resp normal respiratory effort Auscultation: clear to auscultation bilaterally Cardio regular rhythm, S1 normal heart sound and S2 normal heart sound Jugular Venous Distention: JVD Rhythm: abnormal rhythm irregularly irregular GI normal to inspection, nondistended, normoactive bowel sounds Extremity normal capillary refill and no pedal edema Peripheral Pulses: Yes pulses 2+ throughout and femoral pulses present Skin no rashes or lesions noted Neuro oriented x3 and CN's II-XII intact bilaterally Psych Appearance: grossly normal and appropriate Risk Stratification Risk Stratification Applicable: No Objective Data Vital Signs: Vital Signs Temp Pulse Resp BP Pulse Ox O2 Del Method O2 Flow Rate 97.5 F L 132 H 18 149/95 H 93 Nasal Cannula 2 03/17/23 01:14 03/17/23 01:14 03/17/23 01:14 03/17/23 01:14 03/17/23 01:14 03/17/23 01:14 03/17/23 01:14 Oxygen Flow Rate (L/min) 2 Oxygen Delivery Method Nasal Cannula Weight: 109 lb 2.061 oz Body Mass Index (BMI) 19.9 Intake & Output: Intake and Output for Last 24 Hours 03/15/23 03/16/23 03/17/23 23:59 23:59 23:59 Intake Total 120 / 120 Balance 120 / 120 Lab / Micro Data 03/16/23 12:15 03/16/23 12:15 Labs: Laboratory Results - last 24 hr 03/16/23 12:15: WBC 5.8, RBC 3.44 L, Hgb 11.1 L, Hct 34.1 L, MCV 99.1 H, MCH 32.3 H, MCHC 32.6, RDW Std Deviation 68.3 H, RDW Coeff of Zuleima 18.7 H, Plt Count 297, MPV 9.5, Immature Gran % (Auto) 0.200, Neut % (Auto) 71.8 H, Lymph % (Auto) 16.0 L, [place] % (Auto) 9.1, Eos % (Auto) 1.9, Baso % (Auto) 1.0, Absolute Neuts (auto) 4.2, Absolute Lymphs (auto) 0.93, Nucleated RBC % 0.5, Anisocytosis 2+, Microcytosis 1+, Macrocytosis 1+, PT 18.3 H, INR 1.5, Sodium 139, Potassium 2.9 L, Chloride 100, Carbon Dioxide 32.0, Anion Gap 7, BUN 21 H, Creatinine 1.05 H, Estim Creat Clear Calc 29.29, Est GFR (MDRD) Af Amer 64, Est GFR (MDRD) Non-Af 53 L, BUN/Creatinine Ratio 20.0, Glucose 129 H, Calcium 9.0, Troponin I High Sens 21, B-Natriuretic Peptide 1613.5 H 03/16/23 12:43: Urine Color Yellow, Urine Clarity Clear, Urine pH 7.0, Ur Specific [place] 1.010, Urine Protein Negative, Urine Glucose (UA) Normal, Urine Ketones Negative, Urine Occult Blood 10 H, Urine Nitrite Negative, Urine Bilirubin Negative, Urine Urobilinogen Normal, Ur Leukocyte Esterase 25 H, Urine RBC 0-5 SEEN, Urine WBC 0-5 SEEN, Ur Squamous Epith Cells 0 SEEN, Urine Bacteria 1+, Urine Mucus 0 SEEN 03/16/23 14:45: Magnesium 1.8, Troponin I High Sens 24 Micro: Microbiology 03/16/23 12:30 Nasal Secretion SARS-CoV-2 & FLU Antigen (Rapid) - Final Cardiology Labs/Tests 03/16/23 12:15: WBC 5.8, RBC 3.44 L, Hgb 11.1 L, Hct 34.1 L, MCV 99.1 H, MCH 32.3 H, MCHC 32.6, Plt Count 297, MPV 9.5, Immature Gran % (Auto) 0.200, Neut % (Auto) 71.8 H, Lymph % (Auto) 16.0 L, [place] % (Auto) 9.1, Eos % (Auto) 1.9, Baso % (Auto) 1.0, Absolute Neuts (auto) 4.2, Nucleated RBC % 0.5, PT 18.3 H, INR 1.5, Sodium 139, Potassium 2.9 L, Chloride 100, Carbon Dioxide 32.0, Anion Gap 7, BUN 21 H, Creatinine 1.05 H, Est GFR (MDRD) Af Amer 64, Est GFR (MDRD) Non-Af 53 L, BUN/Creatinine Ratio 20.0, Glucose 129 H, Calcium 9.0, B-Natriuretic Peptide 1613.5 H 03/16/23 12:43: Urine Color Yellow, Urine Clarity Clear, Urine pH 7.0, Ur S pecific [place] 1.010, Urine Protein Negative, Urine Glucose (UA) Normal, Urine Ketones Negative, Urine Occult Blood 10 H, Urine Nitrite Negative, Urine Bilirubin Negative, Urine Urobilinogen Normal, Ur Leukocyte Esterase 25 H, Urine RBC 0-5 SEEN, Urine WBC 0-5 SEEN 03/16/23 14:45: Magnesium 1.8 Rhythm: EKG: ECHO: Stress Test: Cardiac Cath: PCI: CT Surgery: Holter monitor: EPS: PPM: CXR: Chest CT Scan: Radiography Diagnostic Testing: Radiology Impression Chest X-Ray 03/16/23 12:30 IMPRESSION: Mild pulmonary vascular congestion. Small right pleural effusion with overlying atelectasis which is decreased in size when compared with the prior exam. Electronically Signed: Andrade Raza MD at 13:14 EST ,
[2023-03-17 07:20] LABS: Hematocrit 35.6 % (37-47); Hemoglobin 11.6 g/dL (12.0-15.0); Mean Corp Hgb Conc 32.6 g/dL (32-36); Mean Corpuscular Hgb 32.1 pg (27.0-32.0); Mean Corpuscular Volume 98.6 fL (81-99); Mean Platelet Vol. 9.4 fl (6.2-12.0); POSITIVE MORPHOLOGY YES; Platelet Count 278 K/mm3 (150-450); RBC Distribution Width CV 18.8 % (11.6-14.6); RBC Distribution Width SD 68.6 fl (35.1-43.9); Red Blood Count 3.61 M/mm3 (4.2-5.4); White Blood Count 7.2 K/mm3 (4.4-11.0)
[2023-03-17 07:25] LABS: Scan Indicated on CBC? Y/N YES- FLAGS NOTED
[2023-03-17 08:11] LABS: ALB/GLOB Ratio 1.1 RATIO (0.9-2.4); AST(SGOT) 27 U/L (15-37); Alanine Aminotransfer ALT/SGPT 17 U/L (13-56); Albumin, Serum 3.3 g/dL (3.2-5.0); Alkaline Phosphatase 66 U/L (45-117); Anion Gap 9 (5-15); BUN 23 mg/dL (7-18); BUN/Creat Ratio 22.5 RATIO (10-20); Bilirubin, Direct 0.69 mg/dL (0.00-0.30); Calcium,Total 8.9 mg/dL (8.5-10.1); Chloride 103 mmol/L (98-107); Creatinine, Serum 1.02 mg/dL (0.55-1.02); EST Glomerular Filtration Rate 54 mL/min (>60); Est Glom Filt Rate - Afr Amer 66 mL/min (>60); Estimated Creatinine Clearance 29.67 ml/min; Globulin 3.1 g/dL (2.2-4.2); Glucose 145 mg/dL (74-106); Magnesium 1.9 mg/dL (1.6-2.6); Potassium 3.1 mmol/L (3.5-5.1); Protein, Total 6.4 g/dL (6.4-8.2); Sodium Level 140 mmol/L (136-145)
[2023-03-17] MEDS: Isosorbide Mononitrate 60 MG Tablet PO (08:12)
[2023-03-17] MEDS: Metoprolol Tartrate 50 MG Tablet PO ×2 (08:14→20:26)
[2023-03-17] MEDS: Cholecalciferol (VIT D3) 25 MCG TABLET (1,000 UNITS) PO (08:15)
[2023-03-17] MEDS: PARoxetine 10 MG Tablet PO (08:16)
[2023-03-17] MEDS: Furosemide 40 MG/4 ML Vial IV ×2 (08:17→17:31)
[2023-03-17] MEDS: 0.9% Saline Lock 10 ML Syringe IV ×3 (08:17→20:26)
[2023-03-17] MEDS: Enoxaparin 30 MG/0.3 ML Syringe SC (08:18)
[2023-03-17 08:41] LABS: International Normalized Ratio 1.2; Prothrombin Time (Protime)PT. 15.6 SECONDS (11.7-14.9)
--- NOTE | 2023-03-17 09:55 | CASEMGMT ---
RN CM Face to Face with patient for initial transition planning/care coordination assessment. RN CM introduced self and role at [facility]. Patient lying in bed, alert and oriented. Patient willing to participate in assessment and is able to answer all questions appropriately. Care providers, pharmacy, and demographics verified. Patient wishes to discharge home, denies need for home health at this time. Patient states she has no further needs or concerns at this time. CM to follow for discharge planning needs that may arise. PCP: Srinivasa Specialists: [facility] Preferred Pharmacy: [facility] Insurance: [email or web address] [facility] Prescription Benefit: yes Living Will/HPOA: yes, daughter Amada Matthews LNOK: daughter, son Living Arrangements: Patient lives alone in a 2 story home with bed and bath on first floor. Patient is independent at home. Transportation: self, daughter DME/HHC: Patient has raised toilet, cane, grab bars. Patient has been to TCU and [facility] in the past. No previous C Disposition Plan: Patient to discharge home with family support and follow-up plans in place. Talita ROSAS, RN, CM
[2023-03-17] MEDS: Potassium Chloride Oral Tablet 20 MEQ 40 MEQ PO (10:27)
--- NOTE | 2023-03-17 13:35 | PN_ITS ---
Subjective Subjective Patient seen and examined. She had no active complaints. Her breathing had improved. Review of systems is otherwise negative. She is on 2L of oxygen. Review of systems is otherwise negative. Objective Data Objective Data Vital Signs: Vital Signs Temp Pulse Resp BP Pulse Ox O2 Del Method O2 Flow Rate 97.7 F L 122 H 17 165/95 H 94 Nasal Cannula 2 03/17/23 07:39 03/17/23 08:14 03/17/23 07:39 03/17/23 07:39 03/17/23 08:38 03/17/23 08:38 03/17/23 11:16 Oxygen Flow Rate (L/min) 2 Oxygen Delivery Method Nasal Cannula Weight: 108 lb 11.006 oz Body Mass Index (BMI) 19.8 Intake & Output: Intake and Output for Last 24 Hours 03/15/23 03/16/23 03/17/23 23:59 23:59 23:59 Intake Total 120 / 120 Balance 120 / 120 Lab / Micro Data 03/17/23 06:55 03/17/23 06:55 Labs: Laboratory Results - last 24 hr 03/16/23 12:43: Urine RBC 0-5 SEEN, Urine WBC 0-5 SEEN, Ur Squamous Epith Cells 0 SEEN, Urine Bacteria 1+, Urine Mucus 0 SEEN 03/16/23 14:45: Magnesium 1.8, Troponin I High Sens 24 03/17/23 06:55: WBC 7.2, RBC 3.61 L, Hgb 11.6 L, Hct 35.6 L, MCV 98.6, MCH 32.1 H, MCHC 32.6, RDW Std Deviation 68.6 H, RDW Coeff of Zuleima 18.8 H, Plt Count 278, MPV 9.4, Differential Comment COMMENT, PT 15.6 H, INR 1.2, Sodium 140, Potassium 3.1 L, Chloride 103, Carbon Dioxide 28.0, Anion Gap 9, BUN 23 H, Creatinine 1.02, Estim Creat Clear Calc 29.67, Est GFR (MDRD) Af Amer 66, Est GFR (MDRD) Non-Af 54 L, BUN/Creatinine Ratio 22.5 H, Glucose 145 H, Calcium 8.9, Magnesium 1.9, Total Bilirubin 2.20 H, Direct Bilirubin 0.69 H, AST 27, ALT 17, Alkaline Phosphatase 66, Total Protein 6.4, Albumin 3.3, Globulin 3.1, Albumin/Globulin Ratio 1.1 Micro: Microbiology 03/16/23 12:30 Nasal Secretion SARS-CoV-2 & FLU Antigen (Rapid) - Final Radiography Diagnostic Testing: Radiology Impression Echocardiogram 03/16/23 21:47 Interpretation Summary Normal LV size. Left ventricular systolic function is lower limits of normal. The estimated ejection fraction is 50 %. Mild-Moderate (1-2+) eccentric mitral valve insufficiency. Pulmonary artery systolic pressure is 65 mmHg. Moderate pulmonary hypertension. Ordering Physician: Connor Bourne Referring Physician: Rachel Bernabe Performed By: Preeti Chavez RCS Physical Exam Const alert, oriented x3 and no apparent distress General Appearance: cooperative HEENT normocephalic, head/scalp atraumatic, moist oral mucous membranes and oropharynx normal Eyes PERRL and EOMs intact bilaterally Neck no lymphadenopathy, supple and no JVD Lymph Lymphatic: no lymphadenopathy noted and no lymphedema noted Resp Resp Narrative: diminished breath sounds bibasally, no wheezes or crackles. On 2L of oxygen by nasal canula Cardio regular rate, regular rhythm, S1 normal heart sound and S2 normal heart sound GI normal to inspection, nondistended, normoactive bowel sounds, soft to palpation, non-tender and non-distended Extremity normal capillary refill, no clubbing, cyanosis or edema and no calf tenderness General Extremity: no tenderness to palpation of joints or extremities Skin General Skin Exam: no breakdown Neuro CN's II-XII intact bilaterally, no focal motor deficits, no sensory deficits noted and deep tendon reflexes 2+ bilaterally Motor Exam: strength 5/5 throughout and general weakness Psych thought process normal, cooperative and affect normal Appearance: appropriate Assessment & Plan Assessment/Plan (1) Acute exacerbation of CHF (congestive heart failure): (2) (HFpEF) heart failure with preserved ejection fraction: QUALIFIERS: Heart failure chronicity: chronic Qualified Code(s): I50.32 - Chronic diastolic (congestive) heart failure PLAN: Plan #Acute on chronic HFpEF * BNP was elevated at 1613 * she was hypoxic and was down to the mid 80s on room air with exertion * EKG showed afib, rate controlled. * 2D echo showed EF of 50%, with LVSF lower limits of normal, as well as pulmo nary artery systolic pressure of 65mmhg. * on IV lasix 40mg bid. * monitor intake and output. * fluid restriction to 1500cc daily * #CAD s/p CABG and stenting: on imdur, lopressor. Allergic to statin. #Atrial fibrillation * cardiology on board. * on lopressor. * intolerant to anticoagulation. * #Hypokalemia: K is 3.1 today, was 2.9 on admission. WIll replace and trend. #Anxiety and depression; on paxil. #Debility: lives on her own, though daughter lives close by. PT/OT on board. Fall precautions DVT prophylaxis; SCDs Charges/Coding Visit Charges Inpatient E&M: 20572 Subs Hosp L2
--- NOTE | 2023-03-17 14:59 | CHAPLAIN ---
Type of Pastoral Visit _x__ Initial Visit ___ Follow-up Visit ___ On-call Visit ___ General Patient Visit ___ Spiritual Assessment ___ Family Conference ___ Bereavement ___ Rapid Response ___ Code Blue ___ Other (describe below) Pastoral Care Referral From _x__ Patient ___ Family ___ Nurse ___ Physician ___ Outpatient Pharmacy Manager ___ Board Lining Machine Operator ___ Other (describe below) Sacrament/Intervention _x__ Active listening ___ Anointing ___ Christianity ___ Bereavement ___ Communion _x__ Arabella exploration ___ ___ Life review _x__ Prayer ___ Reconciliation ___ Sacrament of Sick _x__ Supportive presence ___ Wedding ___ Other (describe below) Pastoral Comments patient discusses her several health issues that brought her to the hospital; pt talks about her pentec[employer]ism and would like them notified of her admission; called [employer] to complete the request; sat at bedside for pt to talk and then to offer a prayer
[2023-03-18] VITALS (11 sets, daily range): BP systolic 134–159; BP diastolic 67–98; PULSE 78–97; RESP 16–20; TEMP 36.1–36.9; O2SAT 85–98; BMI 19.3
[2023-03-18 08:46] LABS: Absolute Lymphocyte Count 1.64 X10^3/uL (0.83-4.51); Absolute Neutrophil Count 6.3 X10^3/uL (2.0-7.7); Basophil# 0.06 X10^3/uL; Basophil% 0.7 % (0-1); Eosinophil# 0.07 X10^3/uL; Eosinophils% 0.8 % (0-5); Hematocrit 36.8 % (37-47); Hemoglobin 11.7 g/dL (12.0-15.0); Lymphocyte # 1.64 X10^3/ul (0.83-4.51); Lymphocyte % 18.8 % (19-41); Mean Corp Hgb Conc 31.8 g/dL (32-36); Mean Corpuscular Hgb 32.1 pg (27.0-32.0); Mean Corpuscular Volume 101.1 fL (81-99); Mean Platelet Vol. 9.9 fl (6.2-12.0); Monocyte# 0.66 X10^3/uL; Monocyte% 7.6 % (0-10); NRBC Flagged by Analyzer 0.5 % (0-5); Neutrophil # 6.25 X10^3/uL (2.7-7.7); Neutrophil % 71.8 % (47-70); POSITIVE MORPHOLOGY YES; Platelet Count 279 K/mm3 (150-450); RBC Distribution Width CV 19.2 % (11.6-14.6); RBC Distribution Width SD 70.1 fl (35.1-43.9); Red Blood Count 3.64 M/mm3 (4.2-5.4); White Blood Count 8.7 K/mm3 (4.4-11.0)
[2023-03-18 08:51] LABS: Differential Indicated SCAN CRITERIA MET
[2023-03-18 09:21] LABS: Anisocytosis 1+
[2023-03-18 09:30] LABS: Anion Gap 8 (5-15); BUN 28 mg/dL (7-18); BUN/Creat Ratio 26.4 RATIO (10-20); Calcium,Total 9.5 mg/dL (8.5-10.1); Chloride 103 mmol/L (98-107); Creatinine, Serum 1.06 mg/dL (0.55-1.02); EST Glomerular Filtration Rate 52 mL/min (>60); Est Glom Filt Rate - Afr Amer 63 mL/min (>60); Estimated Creatinine Clearance 27.57 ml/min; Glucose 147 mg/dL (74-106); Potassium 3.3 mmol/L (3.5-5.1); Sodium Level 137 mmol/L (136-145)
[2023-03-18] MEDS: PARoxetine 10 MG Tablet PO ×2 (09:49→21:57)
[2023-03-18] MEDS: Cholecalciferol (VIT D3) 25 MCG TABLET (1,000 UNITS) PO (09:49)
[2023-03-18] MEDS: Metoprolol Tartrate 50 MG Tablet PO ×2 (09:49→21:55)
[2023-03-18] MEDS: Isosorbide Mononitrate 60 MG Tablet PO (09:50)
[2023-03-18] MEDS: Enoxaparin 30 MG/0.3 ML Syringe SC (09:50)
[2023-03-18] MEDS: Furosemide 40 MG/4 ML Vial IV ×2 (09:50→18:05)
--- NOTE | 2023-03-18 14:37 | PN_ITS ---
Subjective Subjective Patient seen and examined. She said her shortness of breath was better but she got very short of breath with wheezing when she got up to ambulate. She denied any chest pain or palpitations, dizziness, nausea or vomiting. She remains on 2 L of oxygen.Review of systems is otherwise negative. Objective Data Objective Data Vital Signs: Vital Signs Temp Pulse Resp BP Pulse Ox O2 Del Method O2 Flow Rate 97.6 F L 91 20 H 151/74 H 85 Nasal Cannula 2 03/18/23 09:45 03/18/23 09:49 03/18/23 09:45 03/18/23 09:49 03/18/23 09:50 03/18/23 09:45 03/18/23 10:53 Oxygen Flow Rate (L/min) [ 2 AMBULATING with Oxygen #1] Oxygen Flow Rate (L/min) [At 2 REST with Oxygen] Oxygen Flow Rate (L/min) 2 Oxygen Delivery Method Nasal Cannula Weight: 104 lb 15.04 oz Body Mass Index (BMI) 19.3 Intake & Output: Intake and Output for Last 24 Hours 03/16/23 03/17/23 03/18/23 23:59 23:59 23:59 Intake Total 120 / 120 500 / 600 400 / 400 Output Total 600 / 1100 1250 / 1250 Balance 120 / 120 -100 / -500 -850 / -850 Lab / Micro Data 03/18/23 08:20 03/18/23 08:20 Labs: Laboratory Results - last 24 hr 03/18/23 08:20: WBC 8.7, RBC 3.64 L, Hgb 11.7 L, Hct 36.8 L, MCV 101.1 H, MCH 32.1 H, MCHC 31.8 L, RDW Std Deviation 70.1 H, RDW Coeff of Zule[place] 19.2 H, Plt Count 279, MPV 9.9, Immature Gran % (Auto) 0.300, Neut % (Auto) 71.8 H, Lymph % (Auto) 18.8 L, [place] % (Auto) 7.6, Eos % (Auto) 0.8, Baso % (Auto) 0.7, Absolute Neuts (auto) 6.3, Absolute Lymphs (auto) 1.64, Nucleated RBC % 0.5, Anisocytosis 1+, Sodium 137, Potassium 3.3 L, Chloride 103, Carbon Dioxide 26.0, Anion Gap 8, BUN 28 H, Creatinine 1.06 H, Estim Creat Clear Calc 27.57, Est GFR (MDRD) Af Amer 63, Est GFR (MDRD) Non-Af 52 L, BUN/Creatinine Ratio 26.4 H, Glucose 147 H, Calcium 9.5 Micro: Microbiology 03/16/23 12:30 Nasal Secretion SARS-CoV-2 & FLU Antigen (Rapid) - Final Physical Exam Const alert, oriented x3 and no apparent distress General Appearance: cooperative and comfortable HEENT normocephalic, head/scalp atraumatic, hearing grossly normal bilaterally, nasal mucous membranes and turbinates normal, moist oral mucous membranes and oropharynx normal Eyes PERRL, EOMs intact bilaterally and conjunctivae normal Neck full ROM, no lymphadenopathy, supple and no JVD Lymph Lymphatic: no lymphadenopathy noted and no lymphedema noted Chest inspection of chest normal Resp Resp Narrative: diminished breath sounds bibasally, no wheezes or crackles. remains on 2L of oxygen by nasal canula Cardio regular rate, S1 normal heart sound, S2 normal heart sound, no murmurs and peripheral pulses 2+ throughout Cardio Narrative: A-fib, rate controlled. GI normal to inspection, nondistended, normoactive bowel sounds, soft to palpation, non-tender and non-distended Back/Spine normal ROM Extremity normal to inspection, full ROM, normal capillary refill, no clubbing, cyanosis or edema and no calf tenderness General Extremity: no tenderness to palpation of joints or extremities Skin no rashes or lesions noted General Skin Exam: no breakdown Neuro CN's II-XII intact bilaterally, moves all extremities, no focal motor deficits, no sensory deficits noted and deep tendon reflexes 2+ bilaterally Speech: speech normal Motor Exam: strength 5/5 throughout and general weakness Psych mental status grossly normal, thought process normal, cooperative and affect normal Appearance: appropriate Assessment & Plan Assessment/Plan (1) Acute exacerbation of CHF (congestive heart failure): (2) (HFpEF) heart failure with preserved ejection fraction: QUALIFIERS: Heart failure chronicity: chronic Qualified Code(s): I50.32 - Chronic diastolic (congestive) heart failure PLAN: Plan #Acute on chronic HFpEF * BNP was elevated at 1613 * being diuresed with IV lasix 40mg bid * EKG showed afib, rate controlled. * 2D echo showed EF of 50%, with LVSF lower limits of normal, as well as pulmonary artery systolic pressure of 65mmhg. * on IV lasix 40mg bid. * monitor intake and output. * fluid restriction to 1500cc daily * #CAD s/p CABG and stenting: on imdur, lopressor. Allergic to statin. #Atrial fibrillation * cardiology on board. * on lopressor. * intolerant to anticoagulation. * #Hypokalemia: K is 3.3 today. Will replace and trend. #Anxiety and depression; on paxil. #Debility: lives on her own, though daughter lives close by. PT/OT on board. Fall precautions DVT prophylaxis; SCDs Disposition: Anticipate DC over the next 24 to 48 hours. Charges/Coding Visit Charges Inpatient E&M: 61859 Subs Hosp L2
--- NOTE | 2023-03-18 14:38 | CASEMGMT ---
SW notified patient that her Healthcare Living Will is on file, but her Healthcare Power of Operations Team Leader is not. QUE asked that someone bring in a copy. Alycia Duron SIENE MAKER AMISH
[2023-03-18] MEDS: 0.9% Saline Lock 10 ML Syringe IV (18:05)
[2023-03-18] MEDS: Latanoprost 0.005% 1 Bottle 1 DRP OPHTHALMIC (21:59)
[2023-03-19] VITALS (9 sets, daily range): BP systolic 125–151; BP diastolic 66–94; PULSE 71–90; RESP 18; TEMP 36.1–36.7; O2SAT 86–100; BMI 18.5
[2023-03-19 07:17] LABS: Absolute Lymphocyte Count 1.54 X10^3/uL (0.83-4.51); Absolute Neutrophil Count 4.4 X10^3/uL (2.0-7.7); Basophil# 0.04 X10^3/uL; Basophil% 0.6 % (0-1); Eosinophil# 0.13 X10^3/uL; Eosinophils% 1.9 % (0-5); Hematocrit 32.8 % (37-47); Hemoglobin 10.9 g/dL (12.0-15.0); Lymphocyte # 1.54 X10^3/ul (0.83-4.51); Lymphocyte % 22.9 % (19-41); Mean Corp Hgb Conc 33.2 g/dL (32-36); Mean Corpuscular Volume 99.4 fL (81-99); Mean Platelet Vol. 10.1 fl (6.2-12.0); Monocyte# 0.58 X10^3/uL; Monocyte% 8.6 % (0-10); NRBC Flagged by Analyzer 0.4 % (0-5); Neutrophil # 4.41 X10^3/uL (2.7-7.7); Neutrophil % 65.7 % (47-70); POSITIVE MORPHOLOGY YES; Platelet Count 248 K/mm3 (150-450); RBC Distribution Width CV 19.2 % (11.6-14.6); RBC Distribution Width SD 69.9 fl (35.1-43.9); White Blood Count 6.7 K/mm3 (4.4-11.0)
[2023-03-19 07:35] LABS: Differential Indicated SCAN CRITERIA MET
[2023-03-19 07:53] LABS: Anion Gap 6 (5-15); BUN 26 mg/dL (7-18); BUN/Creat Ratio 29.8 RATIO (10-20); Calcium,Total 9.1 mg/dL (8.5-10.1); Chloride 102 mmol/L (98-107); Creatinine, Serum 0.87 mg/dL (0.55-1.02); EST Glomerular Filtration Rate 65 mL/min (>60); Est Glom Filt Rate - Afr Amer 79 mL/min (>60); Estimated Creatinine Clearance 32.25 ml/min; Glucose 104 mg/dL (74-106); Potassium 2.7 mmol/L (3.5-5.1); Sodium Level 139 mmol/L (136-145)
[2023-03-19 08:15] LABS: Anisocytosis 1+
[2023-03-19] MEDS: Potassium Chloride Oral Tablet 20 MEQ 40 MEQ PO ×3 (09:53→13:13)
--- NOTE | 2023-03-19 10:06 | PRO.PCM_ITS ---
Assessment & Plan Assessment/Plan (1) Acute exacerbation of CHF (congestive heart failure): (2) (HFpEF) heart failure with preserved ejection fraction: QUALIFIERS: Heart failure chronicity: chronic Qualified Code(s): I50.32 - Chronic diastolic (congestive) heart failure PLAN: Plan #Acute on chronic HFpEF * BNP was elevated at 1613 * being diuresed with IV lasix 40mg bid * EKG showed afib, rate controlled. * 2D echo showed EF of 50%, with LVSF lower limits of normal, as well as pulmonary artery systolic pressure of 65mmhg. * on IV lasix 40mg bid. * monitor intake and output. * fluid restriction to 1500cc daily * #CAD s/p CABG and stenting: on imdur, lopressor. Allergic to statin. #Atrial fibrillation * cardiology on board. * on lopressor. * intolerant to anticoagulation. * #Hypokalemia: K is 3.3 today. Will replace and trend. #Anxiety and depression; on paxil. #Debility: lives on her own, though daughter lives close by. PT/OT on board. Fall precautions DVT prophylaxis; SCDs
--- NOTE | 2023-03-19 10:06 | PCM.OP.PRO ---
Assessment & Plan Assessment/Plan (1) Acute exacerbation of CHF (congestive heart failure): (2) (HFpEF) heart failure with preserved ejection fraction: QUALIFIERS: Heart failure chronicity: chronic Qualified Code(s): I50.32 - Chronic diastolic (congestive) heart failure PLAN: Plan #Acute on chronic HFpEF BNP was elevated at 1613 being diuresed with IV lasix 40mg bid EKG showed afib, rate controlled. 2D echo showed EF of 50%, with LVSF lower limits of normal, as well as pulmonary artery systolic pressure of 65mmhg. on IV lasix 40mg bid. monitor intake and output. fluid restriction to 1500cc daily #CAD s/p CABG and stenting: on imdur, lopressor. Allergic to statin. #Atrial fibrillation cardiology on board. on lopressor. intolerant to anticoagulation. #Hypokalemia: K is 3.3 today. Will replace and trend. #Anxiety and depression; on paxil. #Debility: lives on her own, though daughter lives close by. PT/OT on board. Fall precautions DVT prophylaxis; SCDs
--- NOTE | 2023-03-19 10:09 | PN.HOSP_ITS ---
Reason for Visit Reason for Visit: Diagnoses Essential (primary) hypertension (03/16/23) Atherosclerosis of coronary artery bypass graft(s) without angina pectoris (03/16/23) Permanent atrial fibrillation (03/16/23) Unspecified diastolic (congestive) heart failure (03/16/23) Chronic diastolic (congestive) heart failure (03/16/23) Heart failure, unspecified (03/16/23) Hypoxemia (03/16/23) Objective Data Objective Data Vital Signs: Vital Signs Temp Pulse Resp BP Pulse Ox O2 Del Method O2 Flow Rate 97.1 F L 90 18 137/66 H 98 Nasal Cannula 3 03/19/23 09:56 03/19/23 09:56 03/19/23 09:56 03/19/23 09:56 03/19/23 09:56 03/19/23 10:05 03/19/23 10:05 Oxygen Flow Rate (L/min) [ 2 AMBULATING with Oxygen #1] Oxygen Flow Rate (L/min) [At 2 REST with Oxygen] Oxygen Flow Rate (L/min) 3 Oxygen Delivery Method Nasal Cannula Weight: 100 lb 12.02 oz Body Mass Index (BMI) 18.5 Intake & Output: Intake and Output for Last 24 Hours 03/17/23 03/18/23 03/19/23 23:59 23:59 23:59 Intake Total 500 / 600 840 / 840 Output Total 600 / 1100 2250 / 2250 425 / 425 Balance -100 / -500 -1410 / -1410 -425 / -425 Lab / Micro Data 03/19/23 06:50 03/19/23 06:50 Labs: Laboratory Results - last 24 hr 03/19/23 06:50: WBC 6.7, RBC 3.30 L, Hgb 10.9 L, Hct 32.8 L, MCV 99.4 H, MCH 33.0 H, MCHC 33.2, RDW Std Deviation 69.9 H, RDW Coeff of Zuleima 19.2 H, Plt Count 248, MPV 10.1, Immature Gran % (Auto) 0.300, Neut % (Auto) 65.7, Lymph % (Auto) 22.9, Baxter % (Auto) 8.6, Eos % (Auto) 1.9, Baso % (Auto) 0.6, Absolute Neuts (auto) 4.4, Absolute Lymphs (auto) 1.54, Nucleated RBC % 0.4, Anisocytosis 1+, Sodium 139, Potassium 2.7 L*, Chloride 102, Carbon Dioxide 31.0, Anion Gap 6, BUN 26 H, Creatinine 0.87, Estim Creat Clear Calc 32.25, Est GFR (MDRD) Af Amer 79, Est GFR (MDRD) Non-Af 65, BUN/Creatinine Ratio 29.8 H, Glucose 104, Calcium 9.1, Phosphorus 3.0 Micro: Microbiology 03/16/23 12:30 Nasal Secretion SARS-CoV-2 & FLU Antigen (Rapid) - Final Physical Exam Narrative Seen and examined. Patient is mild short of breath. No chest pain. She states her shortness of breath is much improved 70 to 80%. General: Alert, Oriented x3, Cooperative HEENT: Atraumatic, PERRLA, EOMI, Normocephalic Oral: No Gingival or Mucosal Lesions/ Ulcerations Neck: Supple, No JVD, Negative Carotid Bruits Lungs: Air entry diminished in bilateral lung bases. No crepitation/rhonchi Cardiovascular: CABG scar. Regular rate, Regular Rhythm, Normal S1, Normal S2, systolic murmur over right second ICS this be Abdomen: Bowel Sounds Present, Soft, Non Tender, Non-Distended : No renal angle tenderness. No suprapubic tenderness. Extremities: mild edema edema, Capillary Refill Less than 3 Seconds Skin: No rashes, No breakdown Musculoskeletal: No Tenderness to Palpation of Joints or Extremities Neurological: Cranial nerves II-XII grossly intact, DTR 2+/4. No acute focal neurological deficit. Psych/Mental Status: Flat affect. Assessment & Plan Assessment/Plan (1) Acute exacerbation of CHF (congestive heart failure): (2) (HFpEF) heart failure with preserved ejection fraction: QUALIFIERS: Heart failure chronicity: chronic Qualified Code(s): I50.32 - Chronic diastolic (congestive) heart failure PLAN: Plan #Acute on chronic HFpEF * BNP was elevated at 1613 * being diuresed with IV lasix 40mg bid * EKG showed afib, rate controlled. * 2D echo showed EF of 50%, with LVSF lower limits of normal, as well as pulmonary artery systolic pressure of 65mmhg. * on IV lasix 40mg bid. * monitor intake and output. * fluid restriction to 1500cc daily 03/19:: Patient is still short of breath on walking, dyspnea on mild exertion, exertional dyspnea present. Therefore patient was not discharged. #CAD s/p CABG and stenting: on imdur, lopressor. Allergic to statin. #Atrial fibrillation * cardiology on board. * on lopressor. * intolerant to anticoagulation. #Hypokalemia: K is 3.3 today. Started on spironolactone. Potassium replaced. #Anxiety and depression; on paxil. #Debility: lives on her own, though daughter lives close by. PT/OT on board. Fall precautions DVT prophylaxis; SCDs Charges/Coding Visit Charges Inpatient E&M: 37590 Subs Hosp L2
[2023-03-19] MEDS: Furosemide 40 MG Tablet PO ×2 (10:13→17:01)
[2023-03-19] MEDS: Isosorbide Mononitrate 60 MG Tablet PO (10:13)
[2023-03-19] MEDS: Enoxaparin 30 MG/0.3 ML Syringe SC (10:13)
[2023-03-19] MEDS: Metoprolol Tartrate 50 MG Tablet PO ×2 (10:13→21:19)
[2023-03-19] MEDS: Magnesium Chloride 64 MG Delay Rel.Tablet 128 MG PO ×2 (10:14→21:18)
[2023-03-19] MEDS: Cholecalciferol (VIT D3) 25 MCG TABLET (1,000 UNITS) PO (10:14)
[2023-03-19] MEDS: PARoxetine 10 MG Tablet PO ×2 (10:14→21:19)
[2023-03-19] MEDS: Latanoprost 0.005% 1 Bottle 1 DRP OPHTHALMIC (21:18)
[2023-03-20 03:15] VITALS: BP 128/87; PULSE 85; RESP 16; TEMP 35.7; O2SAT 96
[2023-03-20 05:55] LABS: Absolute Lymphocyte Count 1.46 X10^3/uL (0.83-4.51); Absolute Neutrophil Count 3.7 X10^3/uL (2.0-7.7); Basophil# 0.04 X10^3/uL; Basophil% 0.7 % (0-1); Eosinophil# 0.22 X10^3/uL; Eosinophils% 3.6 % (0-5); Hematocrit 33.6 % (37-47); Hemoglobin 10.7 g/dL (12.0-15.0); Lymphocyte # 1.46 X10^3/ul (0.83-4.51); Lymphocyte % 24.1 % (19-41); Mean Corp Hgb Conc 31.8 g/dL (32-36); Mean Corpuscular Hgb 32.5 pg (27.0-32.0); Mean Corpuscular Volume 102.1 fL (81-99); Monocyte# 0.58 X10^3/uL; Monocyte% 9.6 % (0-10); Neutrophil # 3.74 X10^3/uL (2.7-7.7); Neutrophil % 61.8 % (47-70); POSITIVE MORPHOLOGY YES; Platelet Count 265 K/mm3 (150-450); RBC Distribution Width CV 19.3 % (11.6-14.6); RBC Distribution Width SD 72.7 fl (35.1-43.9); Red Blood Count 3.29 M/mm3 (4.2-5.4); White Blood Count 6.1 K/mm3 (4.4-11.0)
[2023-03-20 06:00] VITALS: BMI 18.6
[2023-03-20 06:09] LABS: Differential Indicated SCAN CRITERIA MET
[2023-03-20 06:32] LABS: Anion Gap 4 (5-15); BUN 31 mg/dL (7-18); BUN/Creat Ratio 28.7 RATIO (10-20); Chloride 105 mmol/L (98-107); Creatinine, Serum 1.08 mg/dL (0.55-1.02); EST Glomerular Filtration Rate 51 mL/min (>60); Est Glom Filt Rate - Afr Amer 62 mL/min (>60); Estimated Creatinine Clearance 26.03 ml/min; Glucose 131 mg/dL (74-106); Potassium 3.8 mmol/L (3.5-5.1); Sodium Level 140 mmol/L (136-145)
[2023-03-20 07:00] VITALS: O2SAT 97
[2023-03-20 07:07] LABS: Anisocytosis 1+; Differential Comment SCANNED; Macrocytosis 1+
[2023-03-20 09:18] VITALS: BP 131/93; PULSE 98; RESP 18; TEMP 36.6; O2SAT 98
[2023-03-20] MEDS: Enoxaparin 40 MG/0.4 ML Syringe SC (09:30)
[2023-03-20 09:31] VITALS: BP 131/93; PULSE 98
[2023-03-20] MEDS: Metoprolol Tartrate 50 MG Tablet PO (09:31)
[2023-03-20] MEDS: Spironolactone 25 MG Tablet PO (09:31)
[2023-03-20] MEDS: Isosorbide Mononitrate 60 MG Tablet PO (09:31)
[2023-03-20] MEDS: Furosemide 40 MG Tablet PO (09:31)
[2023-03-20] MEDS: Magnesium Chloride 64 MG Delay Rel.Tablet 128 MG PO (09:31)
[2023-03-20] MEDS: PARoxetine 10 MG Tablet PO (09:31)
[2023-03-20] MEDS: Cholecalciferol (VIT D3) 25 MCG TABLET (1,000 UNITS) PO (09:31)
[2023-03-20] MEDS: Acetaminophen 325 MG Tablet 650 MG PO (09:35)
--- NOTE | 2023-03-20 10:06 | PN.HOSP_ITS ---
Reason for Visit Reason for Visit: Diagnoses Essential (primary) hypertension (03/16/23) Atherosclerosis of coronary artery bypass graft(s) without angina pectoris (03/16/23) Permanent atrial fibrillation (03/16/23) Unspecified diastolic (congestive) heart failure (03/16/23) Chronic diastolic (congestive) heart failure (03/16/23) Heart failure, unspecified (03/16/23) Hypoxemia (03/16/23) Objective Data Objective Data Vital Signs: Vital Signs Temp Pulse Resp BP Pulse Ox O2 Del Method O2 Flow Rate 97.8 F 98 18 131/93 H 98 Nasal Cannula 2 03/20/23 09:18 03/20/23 09:31 03/20/23 09:18 03/20/23 09:31 03/20/23 09:18 03/20/23 09:18 03/20/23 09:18 Oxygen Flow Rate (L/min) [ 3 AMBULATING with Oxygen #1] Oxygen Flow Rate (L/min) [At 2 REST with Oxygen] Oxygen Flow Rate (L/min) [At 0 REST on Room Air] Oxygen Flow Rate (L/min) 2 Oxygen Delivery Method Nasal Cannula Weight: 100 lb 15.547 oz Body Mass Index (BMI) 18.6 Intake & Output: Intake and Output for Last 24 Hours 03/18/23 03/19/23 03/20/23 23:59 23:59 23:59 Intake Total 840 / 840 480 / 630 150 / 150 Output Total 2250 / 2250 850 / 850 Balance -1410 / -1410 -370 / -220 150 / 150 Lab / Micro Data 03/20/23 04:33 03/20/23 04:33 Labs: Laboratory Results - last 24 hr 03/20/23 04:33: WBC 6.1, RBC 3.29 L, Hgb 10.7 L, Hct 33.6 L, MCV 102.1 H, MCH 32.5 H, MCHC 31.8 L, RDW Std Deviation 72.7 H, RDW Coeff of Zuleima 19.3 H, Plt Count 265, MPV 10.0, Immature Gran % (Auto) 0.200, Neut % (Auto) 61.8, Lymph % (Auto) 24.1, Warrick % (Auto) 9.6, Eos % (Auto) 3.6, Baso % (Auto) 0.7, Absolute Neuts (auto) 3.7, Absolute Lymphs (auto) 1.46, Nucleated RBC % 1.0, Differential Comment SCANNED, Anisocytosis 1+, Macrocytosis 1+, Sodium 140, Potassium 3.8, Chloride 105, Carbon Dioxide 31.0, Anion Gap 4 L, BUN 31 H, Creatinine 1.08 H, Estim Creat Clear Calc 26.03, Est GFR (MDRD) Af Amer 62, Est GFR (MDRD) Non-Af 51 L, BUN/Creatinine Ratio 28.7 H, Glucose 131 H, Calcium 9.0 Micro: Microbiology 03/16/23 12:30 Nasal Secretion SARS-CoV-2 & FLU Antigen (Rapid) - Final Physical Exam Narrative Seen and examined. Patient is mild short of breath. No chest pain. She states her shortness of breath is much improved 70 to 80%. General: Alert, Oriented x3, Cooperative HEENT: Atraumatic, PERRLA, EOMI, Normocephalic Oral: No Gingival or Mucosal Lesions/ Ulcerations Neck: Supple, No JVD, Negative Carotid Bruits Lungs: Air entry diminished in bilateral lung bases. No crepitation/rhonchi Cardiovascular: CABG scar. Regular rate, Regular Rhythm, Normal S1, Normal S2, systolic murmur over right second ICS this be Abdomen: Bowel Sounds Present, Soft, Non Tender, Non-Distended : No renal angle tenderness. No suprapubic tenderness. Extremities: mild edema edema, Capillary Refill Less than 3 Seconds Skin: No rashes, No breakdown Musculoskeletal: No Tenderness to Palpation of Joints or Extremities Neurological: Cranial nerves II-XII grossly intact, DTR 2+/4. No acute focal neurological deficit. Psych/Mental Status: Flat affect. Const alert, oriented x3 and no apparent distress Constitutional Narrative: General Appearance: cooperative and comfortable HEENT normocephalic, head/scalp atraumatic, hearing grossly normal bilaterally, nasal mucous membranes and turbinates normal, moist oral mucous membranes and orophary nx normal Eyes PERRL, EOMs intact bilaterally and conjunctivae normal Neck full ROM, no lymphadenopathy, supple and no JVD Lymph Lymphatic: no lymphadenopathy noted and no lymphedema noted Chest inspection of chest normal Resp Resp Narrative: diminished breath sounds bibasally, no wheezes or crackles. remains on 2L of oxygen by nasal canula Cardio regular rate, regular rhythm, S1 normal heart sound, S2 normal heart sound, no murmurs and peripheral pulses 2+ throughout Cardio Narrative: A-fib, rate controlled. GI normal to inspection, nondistended, normoactive bowel sounds, soft to palpation, non-tender and non-distended Back/Spine normal ROM Extremity normal to inspection, full ROM, normal capillary refill, no clubbing, cyanosis or edema and no calf tenderness Extremity Narrative: +1-2 bilateral lower extremity edema. General Extremity: no tenderness to palpation of joints or extremities Skin no rashes or lesions noted General Skin Exam: no breakdown Neuro CN's II-XII intact bilaterally, moves all extremities, no focal motor deficits, no sensory deficits noted and deep tendon reflexes 2+ bilaterally Speech: speech normal Motor Exam: strength 5/5 throughout and general weakness Psych mental status grossly normal, thought process normal, cooperative and affect normal Appearance: appropriate Assessment & Plan Assessment/Plan (1) Acute exacerbation of CHF (congestive heart failure): (2) (HFpEF) heart failure with preserved ejection fraction: QUALIFIERS: Heart failure chronicity: chronic Qualified Code(s): I50.32 - Chronic diastolic (congestive) heart failure PLAN: Plan #Acute on chronic HFpEF * BNP was elevated at 1613 * being diuresed with IV lasix 40mg bid * EKG showed afib, rate controlled. * 2D echo showed EF of 50%, with LVSF lower limits of normal, as well as pulmonary artery systolic pressure of 65mmhg. * on IV lasix 40mg bid. * monitor intake and output. * fluid restriction to 1500cc daily03/19:: Patient is still short of breath on walking, dyspnea on mild exertion, exertional dyspnea present. Therefore patient was not discharged. It seems patient might have FAD active disease/undiagnosed COPD/asthma: Patient had coarse crepitations and wheezing negatively short of breath. Patient is being managed on scheduled bronchodilator, IV Solu-Medrol, Mucinex, incentive spirometry and Pep. #CAD s/p CABG and stenting: on imdur, lopressor. Allergic to statin. #Atrial fibrillation * cardiology on board. * on lopressor. * intolerant to anticoagulation. #Hypokalemia: K is 3.3 today. Started on spironolactone. Potassium replaced. #Anxiety and depression; on paxil. #Debility: lives on her own, though daughter lives close by. PT/OT on board. Fall precautions DVT prophylaxis; SCDs
[2023-03-20 11:14] VITALS: O2SAT 87; O2SAT 91; O2SAT 92
[2023-03-20] MEDS: guaiFENesin/D-Methorphan TAB.SR.12H 2 TABLET PO (12:05)
--- NOTE | 2023-03-20 14:06 | DCINST_ITS ---
Discharge Instructions Diet Discharge Diet: 2000 mg Sodium Diet Activity Discharge Activity: Return to Normal Activity Weight Bearing Status: Weight bearing as tolerated Dressing / Incision Call your doctor if you observe: Fever of 101 or Higher, Coldness, Increased Pain, Numbness or Tingling, Change in Color, Inability to urinate, Inability to have a bowel movement, Using more than 1 pad per hour, Shortness of breath, Dizziness, Fainting spells, Swelling in the ankles, Chest pain, Prolonged hiccupping, Increased palpitations (irregular heartbeat) and Calf discomfort Follow Up Care When: IN 2 WEEKS Test Results: Test results from this visit will be discussed in further detail at your follow- up appointment, if applicable. Discharge Plan Admission Admit Date/Time: 03/16/23 14:37 Primary Reason for Your Visit: Acute on chronic HFpEF with bronchitis. Attending Provider: Rajesh Sun Primary Care Provider: Rachel Bernabe Consulting Providers: Chase Pham; Connor Bourne; Irene Bush Discharge Orders/Prescriptions Prescriptions: New furosemide 40 mg Tablet 40 mg PO BIDLX 30 Days Qty: 60 2RF Rx Instructions: Take extra 40 mg dose at 5 PM for increased leg swelling or weight gain 5 pounds in 1 week. metoprolol tartrate 50 mg Tablet 50 mg PO BID 30 Days Qty: 60 2RF Rx Instructions: Hold for heart less than 50 or systolic blood pressure less than 100 mmHg. Mucinex DM 30-600 mg Tablet Extended Release 12 Hr 2 tab PO BID 7 Days Qty: 28 0RF Mag 64 64 mg Tablet,Delayed Release (Dr/Ec) 128 mg PO BID 7 Days Qty: 28 0RF spironolactone 25 mg Tablet 25 mg PO DAILY 30 Days Qty: 30 2RF Rx Instructions: Hold if serum potassium is more than 5.0. prednisone 20 mg tablet 40 mg PO DAILY 4 Days Qty: 8 0RF Continued latanoprost 0.005 % drops 1 drp OPHTHALMIC QHS Qty: 8 Patient Comments: instill 1 drop into both eyes every night Rx Instructions: 1 drop each eye cholecalciferol (vitamin D3) 25 mcg (1,000 unit) tablet 25 mcg PO DAILY fish,bora,flax oils-om3,6,9no1 400-400-400 mg capsule 1 cap PO DAILY calcium carb-D3-mag [id number] kf-vqdp-mg-mg tablet 1 tab PO DAILY Rx Instructions: administer with a meal nitroglycerin 0.4 mg tablet, sublingual 0.4 mg SUBLINGUAL Q5M PRN (Reason: Chest Pain) Qty: 25 3RF paroxetine HCl 10 mg tablet 10 mg PO BID turmeric 400 mg capsule 400 mg PO DAILY latanoprost 0.005 % drops 1 drp EACH EYE QPM isosorbide mononitrate 60 mg tablet extended release 24 hr 60 mg PO DAILY Qty: 90 3RF Discontinued potassium 99 mg tablet 99 mg PO DAILY furosemide 20 mg tablet 40 mg PO BID metoprolol tartrate 25 mg tablet 25 mg PO DAILY Qty: 90 3RF Rx Instructions: Hold for heart less than 60 or systolic blood pressure less than 100 mmHg or dizziness Referrals / Follow Up: Chase Pham MD [Med Staff - Active Staff] - Within 1 Month Lewis Glass DO [Med Staff - Active Staff] - Within 1 Month Rachel Bernabe DO [Primary Care Provider] - Jaylen Okeefe MAGAZINE DESIGNER, MAGAZINE DESIGNER-C [Med Staff - Adv Practice Prof] - Within 2 Weeks Disposition Disposition (needs filled in before D/C Order can be placed): Home, Self Care
--- NOTE | 2023-03-20 14:15 | DS.PCM_ITS ---
Providers Date of Admission: 03/16/23 Date of Discharge: 03/20/23 Primary Care Physician: Dr. Rachel Bernabe, Consultations 03/16/23 21:47 Consult: Cardiology Routine Consulting Provider: Chase Pham Reason for Consult: HFpEF exacerbation EMERGENT Consult: No MD Notified: Yes Date Notified: 03/16/23 Time Notified: 21:47 Method of Notification: Text Reason For Visit: HFPEF EXACERBATION Diagnosis Discharge Diagnosis (1) Acute exacerbation of CHF (congestive heart failure): Status: Chronic Code(s): I50.9 - Heart failure, unspecified (2) (HFpEF) heart failure with preserved ejection fraction: Status: Acute Code(s): I50.30 - Unspecified diastolic (congestive) heart failure Qualifiers: Heart failure chronicity: chronic Qualified Code(s): I50.32 - Chronic diastolic (congestive) heart failure Plan #Acute on chronic HFpEF * BNP was elevated at 1613 * being diuresed with IV lasix 40mg bid * EKG showed afib, rate controlled. * 2D echo showed EF of 50%, with LVSF lower limits of normal, as well as pulmonary artery systolic pressure of 65mmhg. * on IV lasix 40mg bid. * monitor intake and output. * fluid restriction to 1500cc daily03/19:: Patient is still short of breath on walking, dyspnea on mild exertion, exertional dyspnea present. Therefore patient was not discharged. 03/20: Potassium is normal. Patient is discharged on furosemide 40 mg twice daily and spironolactone along with other hold if heart rate less than 60/min and if persistently low between 60-70/m, can decrease the dose to 25 mg twice daily in consultation his PCP and her home heart medications. It seems patient might have airway reactive disease/undiagnosed COPD/asthma: Patient had coarse crepitations and wheezing negatively short of breath. Patient is being managed on scheduled bronchodilator, IV Solu-Medrol, Mucinex, incentive spirometry and Pep. Prescription given for burst dose of prednisone 40 mg daily for 4 more days, Mucinex DM. Continue incentive spirometry and Pep for 1 more week at home. Fol low-up in pulmonary clinic. #CAD s/p CABG and stenting: on imdur, lopressor. Allergic to statin. #Atrial fibrillation * cardiology on board. * on lopressor. * intolerant to anticoagulation. #Hypokalemia: K is 3.3 today. Started on spironolactone. Potassium replaced. Hypokalemia corrected. #Anxiety and depression; on paxil. #Debility: lives on her own, though daughter lives close by. PT/OT on board. Fall precautions DVT prophylaxis; SCDs The patient is ambulatory in home and in the community and requires home oxygen with portability as she requires 2 L of continuous oxygen. Follow-up in pulmonary clinic.. Discharge medication reconciliation done. Discharge follow-up instructions completed. Discharge process discussed with the patient and all questions were answered to patient's satisfaction. Follow with PCP in 1 to 2 weeks Total time spent, exact 35 minutes on discharge meds reconciliation, examinat ion, coordination of care with nurses and ancillary staff, review of imaging and blood test and discussion with the patient on follow-up instructions. Medications at Discharge Home Medications latanoprost 0.005 % eye drops 1 drp ophthalmic (eye) [facility] eye health #8 mL 09/30/18 calcium carb-vit H0-vaxtlsjlp-racp 333 mg-200 unit-133 mg-5 mg tablet 1 tab PO DAILY SUPPLEMENT 05/22/20 cholecalciferol (vitamin D3) 25 mcg (1,000 unit) tablet 25 mcg PO DAILY SUPPLEMENT 05/22/20 fish, borage, flaxseed oils-omega 3,6,9 cb #1 400 mg-400 mg-400 mg cap 1 cap PO DAILY SUPPLEMENT 05/22/20 nitroglycerin 0.4 mg sublingual tablet 0.4 mg sublingual Q5M PRN Chest Pain #25 tabs 03/06/21 paroxetine HCl 10 mg tablet 10 mg PO BID MOOD 12/20/21 turmeric 400 mg capsule 400 mg PO DAILY SUPPLEMENT 12/20/21 isosorbide mononitrate 60 mg tablet,extended release 24 hr 60 mg PO DAILY chest pain #90 tabs 11/15/22 latanoprost 0.005 % eye drops 1 drp EACH EYE QPM eye pressur 03/16/23 dextromethorphan-guaifenesin 30 mg-600 mg tablet extended [id number] hr (Mucinex DM) 2 tab PO BID 7 days #28 tabs 03/20/23 furosemide 40 mg tablet 40 mg PO BIDLX 30 days #60 tabs 03/20/23 magnesium chloride 64 mg (magnesium chloride) tablet,delayed release (Mag 64) 128 mg (2 x 64 mg) PO BID 7 days #28 tabs 03/20/23 metoprolol tartrate 50 mg tablet 50 mg PO BID 30 days #60 tabs 03/20/23 prednisone 20 mg tablet 40 mg (2 x 20 mg) PO DAILY 4 days #8 tabs 03/20/23 spironolactone 25 mg tablet 25 mg PO DAILY 30 days #30 tabs 03/20/23 Physical Exam Narrative Seen and examined. The patient was short of breath in the morning but about 10:00 she felt better when she walked to the nursing station. She requires 2 L of oxygen. She was not dyspneic on walking/exertional dyspnea. Before that patient was given IV Solu-Medrol and bronchodilator. Physical exam General: Alert, Oriented x3, Cooperative HEENT: Atraumatic, PERRLA, EOMI, Normocephalic Oral: No Gingival or Mucosal Lesions/ Ulcerations Neck: Supple, No JVD, Negative Carotid Bruits Lungs: Air entry diminished in bilateral lung bases. Bilateral coarse crepitation and wheezing. Cardiovascular: CABG scar. Regular rate, Regular Rhythm, Normal S1, Normal S2, systolic murmur over right second ICS this be Abdomen: Bowel Sounds Present, Soft, Non Tender, Non-Distended : No renal angle tenderness. No suprapubic tenderness. Extremities: mild edema edema, Capillary Refill Less than 3 Seconds Skin: No rashes, No breakdown Musculoskeletal: No Tenderness to Palpation of Joints or Extremities Neurological: Cranial nerves II-XII grossly intact, DTR 2+/4. No acute focal neurological deficit. Psych/Mental Status: Flat affect. Weight / BMI Weight Weight: 100 lb 15.547 oz Body Mass Index (BMI) 18.6 ABG / Lab / Microbiology Data 03/20/23 04:33 03/20/23 04:33 Laboratory: Laboratory Results - last 24 hr 03/20/23 04:33: WBC 6.1, RBC 3.29 L, Hgb 10.7 L, Hct 33.6 L, MCV 102.1 H, MCH 32.5 H, MCHC 31.8 L, RDW Std Deviation 72.7 H, RDW Coeff of Zuleima 19.3 H, Plt Count 265, MPV 10.0, Immature Gran % (Auto) 0.200, Neut % (Auto) 61.8, Lymph % (Auto) 24.1, Pershing % (Auto) 9.6, Eos % (Auto) 3.6, Baso % (Auto) 0.7, Absolute Neuts (auto) 3.7, Absolute Lymphs (auto) 1.46, Nucleated RBC % 1.0, Differential Comment SCANNED, Anisocytosis 1+, Macrocytosis 1+, Sodium 140, Potassium 3.8, Chloride 105, Carbon Dioxide 31.0, Anion Gap 4 L, BUN 31 H, Creatinine 1.08 H, Estim Creat Clear Calc 26.03, Est GFR (MDRD) Af Amer 62, Est GFR (MDRD) Non-Af 51 L, BUN/Creatinine Ratio 28.7 H, Glucose 131 H, Calcium 9.0 Microbiology: Microbiology 03/16/23 12:30 Nasal Secretion SARS-CoV-2 & FLU Antigen (Rapid) - Final D/C Instructions Discharge Diet: 2000 mg Sodium Diet Weight Bearing Status: Weight bearing as tolerated Call your doctor if you observe: Fever of 101 or Higher, Coldness, Increased Pain, Numbness or Tingling, Change in Color, Inability to urinate, Inability to have a bowel movement, Using more than 1 pad per hour, Shortness of breath, Dizziness, Fainting spells, Swelling in the ankles, Chest pain, Prolonged hiccupping, Increased palpitations (irregular heartbeat) and Calf discomfort When: IN 2 WEEKS Meaningful Use Info Meaningful Use Diagnoses (Choose all that apply): None applicable Discharge Plan Admission Admit Date/Time: 03/16/23 14:37 Primary Reason for Your Visit: Acute on chronic HFpEF with bronchitis. Attending Provider: Rajesh Sun Primary Care Provider: Rachel Bernabe Consulting Providers: Chase Pham; Connor Bourne; Irene Bush Discharge Orders/Prescriptions Prescriptions: New furosemide 40 mg Tablet 40 mg PO BIDLX 30 Days Qty: 60 2RF Rx Instructions: Take extra 40 mg dose at 5 PM for increased leg swelling or weight gain 5 pounds in 1 week. metoprolol tartrate 50 mg Tablet 50 mg PO BID 30 Days Qty: 60 2RF Rx Instructions: Hold for heart less than 50 or systolic blood pressure less than 100 mmHg. Mucinex DM 30-600 mg Tablet Extended Release 12 Hr 2 tab PO BID 7 Days Qty: 28 0RF Mag 64 64 mg Tablet,Delayed Release (Dr/Ec) 128 mg PO BID 7 Days Qty: 28 0RF spironolactone 25 mg Tablet 25 mg PO DAILY 30 Days Qty: 30 2RF Rx Instructions: Hold if serum potassium is more than 5.0. prednisone 20 mg tablet 40 mg PO DAILY 4 Days Qty: 8 0RF Continued latanoprost 0.005 % drops 1 drp OPHTHALMIC QHS Qty: 8 Patient Comments: instill 1 drop into both eyes every night Rx Instructions: 1 drop each eye cholecalciferol (vitamin D3) 25 mcg (1,000 unit) tablet 25 mcg PO DAILY fish,bora,flax oils-om3,6,9no1 400-400-400 mg capsule 1 cap PO DAILY calcium carb-D3-mag [id number] vf-dwmw-vy-mg tablet 1 tab PO DAILY Rx Instructions: administer with a meal nitroglycerin 0.4 mg tablet, sublingual 0.4 mg SUBLINGUAL Q5M PRN (Reason: Chest Pain) Qty: 25 3RF paroxetine HCl 10 mg tablet 10 mg PO BID turmeric 400 mg capsule 400 mg PO DAILY latanoprost 0.005 % drops 1 drp EACH EYE QPM isosorbide mononitrate 60 mg tablet extended release 24 hr 60 mg PO DAILY Qty: 90 3RF Discontinued potassium 99 mg tablet 99 mg PO DAILY furosemide 20 mg tablet 40 mg PO BID metoprolol tartrate 25 mg tablet 25 mg PO DAILY Qty: 90 3RF Rx Instructions: Hold for heart less than 60 or systolic blood pressure less than 100 mmHg or dizziness Referrals / Follow Up: Chase Pham MD [Med Staff - Active Staff] - Within 1 Month Lewis Glass DO [Med Staff - Active Staff] - Within 1 Month Rachel Bernabe DO [Primary Care Provider] - Jaylen Okeefe NP, HEEL SEAT SANDER-C [Med Staff - Adv Practice Prof] - Within 2 Weeks Disposition Disposition (needs filled in before D/C Order can be placed): Home, Self Care Charges/Coding Visit Charges Inpatient E&M: 30228 Disch Hosp >30min
[2023-03-20 14:40] VITALS: BP 151/90; PULSE 105; RESP 16; TEMP 36.7; O2SAT 96
--- NOTE | 2023-03-20 15:50 | CASEMGMT ---
Patient has order for discharge today. Patient will need home oxygen at discharge. FAMILIA TINSLEY in to discuss with patient and family, patient prefers [employer]. Patient denied further needs at home. Script received and [facility]. Patient provided with portable tank from [employer] stock. FAMILIA TINSLEY called daughter Amada to discuss oxygen setup and discharge plans. Amada voiced understanding and denied further questions or concerns.
--- NOTE | 2023-03-21 16:48 | CASEMGMT ---
RN CM: 1610: received from pt's daughter Tomeka Matthews stating she was interested in getting home health to check on her mother while she was at work. Return call placed to pt who placed Tomeka on the phone. This RN CM discussed the different types of home healthcare including skilled and nonskilled care including insurance coverage and frequency of visits. Tomeka states she is interested in intermittent skilled care. Discussed following up with pt's PCP for an order which Tomeka states she is able to do. Began to review home healthcare providers but Tomeka was receiving a separate call from the hospital so she discontinued our conversation. I offered to call her back in a little bit. 1630: This RN CM attempted to call pt's home phone number and Tomeka's cell phone number and received voicemail at both numbers. Message left on Tomeka's voicemail offering to continue to assist her with home health set up and provided this RN CM's contact phone number. Jason Astorga RN CM
== END 2023-03-20 17:25 | disposition home or self-care (01) | DRG 291 ==
LOC: ED 13:58 → PCU 14:46
PROVIDERS: Nurse Practitioner; Student in an Organized Health Care Education/Training Program; Admitting Provider Hospitalist; Emergency Provider Emergency Medicine; PCP Family Medicine; Visit Provider Internal Medicine
DX: I11.0 Hypertensive heart disease with heart failure (principal); I50.33 Acute on chronic diastolic (congestive) heart failure; I48.21 Permanent atrial fibrillation; I71.20 Thoracic aortic aneurysm, without rupture, unspecified; Z95.1 Presence of aortocoronary bypass graft; J44.9 Chronic obstructive pulmonary disease, unspecified; D64.9 Anemia, unspecified; F32.A Depression, unspecified; E78.5 Hyperlipidemia, unspecified; E87.6 Hypokalemia; I25.10 Atherosclerotic heart disease of native coronary artery without angina pectoris; F41.9 Anxiety disorder, unspecified; Z95.5 Presence of coronary angioplasty implant and graft; R53.81 Other malaise; R09.02 Hypoxemia
CPT/HCPCS: 36415; 71045; 80048; 80053; 81001; 82248; 83735; 83880; 84100; 84484; 85025; 85027; 85610; 87428; 93005; 93306; 94668; 97110; 97116; 97162; 97530; 99285; A4216; J1940

== ENCOUNTER 2023-07-21 20:03 | Inpatient (IN) | payer MEDICARE, SELFPAY ==
[2023-07-21 20:05] VITALS: BP 132/73; PULSE 102; PULSE 104; RESP 20; RESP 22; TEMP 36.1; O2SAT 100
--- NOTE | 2023-07-21 20:27 | EKG12_ITS ---
Test Reason : SOB Blood Pressure : / mmHG Vent. Rate : 098 BPM Atrial Rate : 000 BPM P-R Int : 000 ms QRS Dur : 080 ms QT Int : 386 ms P-R-T Axes : 000 081 148 degrees QTc Int : 492 ms Atrial fibrillation with premature ventricular or aberrantly conducted complexes Minor Nonspecific ST and T wave abnormality Abnormal ECG Confirmed by Victorino Fountain ([id number]), subeditor MARCELA JENSEN ([id number]) on 07/23/2023 12:58:56 PM Referred By: Confirmed By:Victorino Fountain
[2023-07-21 20:29] VITALS: O2SAT 100
--- NOTE | 2023-07-21 20:32 | ED.VIS.DYS ---
HPI History of Present Illness Chief Complaint: Shortness of Breath Informant: patient and family Onset/Context/Timing Onset: Today and Yesterday Context: gradual Timing: Continuous Quality: Positive for Dyspnea on exertion Current Severity: Moderate Maximum Severity: Moderate Worsened by: Exertion Relieved by: Rest and Oxygen Associated Symptoms Negative for cough Chest Pain: Positive for None Narrative Narrative: 87-year-old female history of A-fib and flutter, CHF, CAD and CABG. On 2 L of oxygen at home. Had increase it to 3 recently. The last 2 days she has developed increasing shortness of breath. No chest pain nor fever nor cough. She is also developed bilateral lower extremity swelling. Similar episode around March with CHF. PE Risk Factors: Negative for Cancer, OCP + Smoking + > 35, Prior DVT or PE, Recent immobilization, Recent surgery or Recent travel Prior similar symptoms: Yes Recent Illness/Hospitalization: No PFSH PFSH Medical History (HFpEF) heart failure with preserved ejection fraction Aortic insufficiency Aortic valve disorder Ascending aortic aneurysm Atherosclerosis of coronary artery bypass graft without angina pectoris Atherosclerotic heart disease of [place] coronary artery without angina pectoris Atrial flutter Basal cell carcinoma of scalp Carotid bruit Chest pain Chronic diastolic (congestive) heart failure Chronic insomnia Diastolic dysfunction Essential hypertension Family history of premature coronary heart disease GERD (gastroesophageal reflux disease) History of basal cell carcinoma Hyperlipidemia Left carotid bruit 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 Mitral valve disorder Mitral valve regurgitation Nonrheumatic mitral valve regurgitation Paroxysmal atrial fibrillation Paroxysmal atrial fibrillation Peripheral vascular disease Scabies Sinus bradycardia Thoracic aortic aneurysm Home Medications calcium carb-vit [id number] 333 mg-200 unit-133 mg-5 mg tablet 1 tab PO DAILY SUPPLEMENT 05/22/20 [History Last Taken 03/16/23] cholecalciferol (vitamin D3) 25 mcg (1,000 unit) tablet 25 mcg PO DAILY SUPPLEMENT 05/22/20 [History Last Taken 03/16/23] fish, borage, flaxseed oils-omega 3,6,9 cb #1 400 mg-400 mg-400 mg cap 1 cap PO DAILY SUPPLEMENT 05/22/20 [History Last Taken 03/16/23] nitroglycerin 0.4 mg sublingual tablet 0.4 mg sublingual Q5M PRN Chest Pain #25 tabs 03/06/21 [Rx Last Taken Unknown] paroxetine HCl 10 mg tablet 10 mg PO BID MOOD 12/20/21 [History Last Taken 03/15/23] turmeric 400 mg capsule 400 mg PO DAILY SUPPLEMENT 12/20/21 [History Last Taken 03/16/23] isosorbide mononitrate 60 mg tablet,extended release 24 hr 60 mg PO DAILY chest pain #90 tabs 11/15/22 [Rx Last Taken 03/16/23] latanoprost 0.005 % eye drops 1 drp EACH EYE QPM eye pressur 03/16/23 [History Last Taken Unknown] dextromethorphan-guaifenesin 30 mg-600 mg tablet extended [id number] hr (Mucinex DM) 2 tab PO BID 7 days #28 tabs 03/20/23 [Rx Last Taken Unknown] furosemide 40 mg tablet 40 mg PO BIDLX 30 days #60 tabs 03/20/23 [Rx Last Taken Unknown] magnesium chloride 64 mg (magnesium chloride) tablet,delayed release (Mag 64) 128 mg (2 x 64 mg) PO BID 7 days #28 tabs 03/20/23 [Rx Last Taken Unknown] spironolactone 25 mg tablet 25 mg PO DAILY 30 days #30 tabs 03/20/23 [Rx Last Taken Unknown] metoprolol tartrate 50 mg tablet 50 mg PO BID PRN blood pressure 04/16/23 [History Last Taken Unknown] Allergy/AdvReac Type Severity Reaction Status Date / Time alendronate sodium Allergy Unknown Verified 07/21/23 20:09 [From Fosamax] atorvastatin calcium Allergy Unknown Verified 07/21/23 20:09 [From Lipitor] colestipol HCl Allergy Unknown Verified 07/21/23 20:09 [From Colestid] cortisone acetate Allergy Unknown Verified 07/21/23 20:09 [From Cortone] ezetimibe [From Zetia] Allergy Unknown Verified 07/21/23 20:09 gabapentin Allergy Unknown Verified 07/21/23 20:09 goserelin acetate Allergy Unknown Verified 07/21/23 20:09 [From Zoladex] nabumetone Allergy Other Verified 07/21/23 20:09 paroxetine HCl [From Paxil] Allergy Unknown Verified 07/21/23 20:09 rosuvastatin calcium Allergy Unknown Verified 07/21/23 20:09 [From Crestor] sertraline HCl [From Zoloft] Allergy Unknown Verified 07/21/23 20:09 venlafaxine HCl Allergy Unknown Verified 07/21/23 20:09 [From Effexor] carvedilol AdvReac Unknown Verified 07/21/23 20:09 hydrocodone bitartrate AdvReac KEEPS ME Verified 07/21/23 20:09 [From Vicodin] AWAKE Family History Brother CAD (coronary artery disease) Diabetes Myocardial infarction Father CAD (coronary artery disease) Other Family history of premature coronary heart disease Surgical History Aortocoronary bypass status (~2009) History of back surgery History of knee replacement, total History of percutaneous transluminal coronary angioplasty History of right shoulder replacement History of total hysterectomy Presence of stent in coronary artery (~11/13/11) Social History Smoking Status: Never smoker alcohol intake: never substance use type: does not use caffeine: Yes Type: coffee Number of servings: 2 what type of physical activity do you participate in: none seatbelt use: always do you feel safe at home: Yes ROS ROS ED ROS Narrative Shortness of breath. Bilateral leg swelling. Review of Systems ROS Unobtainable: Denies due to encephalopathy Constitutional Constitutional ED: Denies chills or fever(s) Eyes Eyes: Denies blurry vision ENT ENT ED: Denies ear pain Cardiovascular Cardiovascular: Denies chest pain Respiratory/Chest Respiratory/Chest: Reports dyspnea and dyspnea on exertion Gastrointestinal Gastrointestinal: Denies abdominal pain, constipation, diarrhea, melena, nausea or vomiting Genitourinary Genitourinary ED: Denies dysuria or hematuria Musculoskeletal Musculoskeletal: Denies arthralgias Integumentary Denies abscess Neurologic Neurologic: Denies headache(s) Psychiatric Psychiatric: Denies anxiety Endocrine Endocrinology: Denies cold intolerance Hematologic/Lymphatic Hematologic/Lymphatic: Denies easy bleeding, easy bruising or lymphadenopathy Allergic/Immunologic Allergic/Immunologic ED: Denies mouth swelling, tongue swelling or urticaria EXAM Physical Exam Narrative Exam Narrative: 87-year-old female vital signs are stable. On 3 L she is 100%. She does not look septic toxic. She has no acute distress. 0.9. Daughter at bedside. H EENT exam dry mucous members. Neck nontender. No JVD. Lungs diminished breath sounds in both bases. Heart A-fib rate about 100 no murmur. Chest wall nontender. Abdomen soft nontender. Nondistended. No peritoneal signs. Moving all 4 extremities. Normal material damage adjuster strength. Normal dorsi plantarflexion. Bilateral 1+ pitting edema in both lower extremities. Calves are nontender. No cords. Neurologically she is awake alert answering questions following commands. Const Vital Signs: 07/21/23 20:05 07/21/23 20:05 07/21/23 20:05 Temperature 96.9 F L 96.9 F L 96.9 F L Temperature Source Temporal Temporal Temporal Pulse Rate 102 H 104 H 104 H Respiratory Rate 20 H 22 H 22 H Respiratory Effort Respiratory Depth Respiratory Pattern Blood Pressure 132/73 H 132/73 H 132/73 H Blood Pressure Mean 92 92 92 Pulse Ox 100 100 100 Oxygen Delivery Method Nasal Cannula Nasal Cannula Nasal Cannula Oxygen Flow Rate (L/min) 3 3 07/21/23 20:29 07/21/23 20:29 07/21/23 21:09 Temperature 97.8 F Temperature Source Axillary Pulse Rate 86 Respiratory Rate 22 H Respiratory Effort Short of Breath Respiratory Depth Normal Respiratory Pattern Tachypnea Blood Pressure 168/61 H Blood Pressure Mean 96 Pulse Ox 96 Oxygen Delivery Method Nasal Cannula Nasal Cannula Nasal Cannula Oxygen Flow Rate (L/min) 3 3 3 07/21/23 22:00 07/21/23 22:05 Temperature 97.2 F L 97.7 F L Temperature Source Axillary Pulse Rate 84 96 Respiratory Rate 25 H 22 H Respiratory Effort Respiratory Depth Respiratory Pattern Blood Pressure 137/77 H 137/77 H Blood Pressure Mean 97 97 Pulse Ox 99 99 Oxygen Delivery Method Nasal Cannula Oxygen Flow Rate (L/min) 3 Positive well nourished and well developed; Negative for obese, cachectic, contractures or unkempt General Appearance ED: well developed and NAD; Negative for unkempt, cachectic, contractures or pallor Nutritional Appearance: Negative for cachectic or obese HEENT Reports dry mucous membranes; Denies moist mucous membranes atraumatic; Negative for trauma or tenderness Mouth ED: Yes dry mucous membranes Mouth: dry mucous membranes Eyes PERRL and EOMs intact bilaterally General Eye ED: Negative for pale conjunctiva or scleral icterus Neck no lymphadenopathy, supple, no meningeal signs and no JVD General: Negative for tenderness Lymph Lymphatic: Negative for other Resp No normal respiratory effort and No clear to auscultation bilaterally Resp Narrative: Slightly increased respiratory rate. Diminished in both bases. Few scattered rales. Auscultation: rales; Negative for rhonchi or wheezes Cardio Negative for regular rate Cardio Narrative: A-fib rate of 98. Rate: Negative for bradycardia or tachycardic Rhythm: abnormal rhythm GI non-tender, non-distended and no masses Auscultation: normoactive bowel sounds Palpation: soft; Negative for tender, guarding or rebound tenderness present Back/Spine no CVA tenderness and normal to inspection General Back: Negative for CVA tenderness Extremity Negative for normal to inspection Extremity Narrative: Bilateral 1+ pitting edema. General Extremety ED: Yes edema; Negative for tenderness General Extremity: edema Neuro oriented x3 and CN's II-XII intact bilaterally Sensorium / Orientation: alert, oriented to person, oriented to place and oriented to time; Negative for orientation impaired, confused, lethargic or stuporous Motor Exam: strength 5/5 throughout Psych mental status grossly normal Appearance: Negative for unkempt Attitude: No agitated Mood & Affect: Negative for depressed, anxious or tearful Skin no wounds General Skin Exam: Negative for jaundice or pallor Lesions: no lesions Rashes: no rashes MDM MDM MDM Narrative Medical decision making narrative: 87-year-old female with A-fib with CHF on exam. Labs and chest x-ray and EKG will be obtained. Repeat exam at 9:40 PM unchanged. Patient resting comfortably sitting upright in bed. We discussed all of her test results that I showed in the chest x-ray. She has both CHF and right pleural effusion. She has had a right pleural effusion before. They do not believe she is ever had a drain. I will give her IV Lasix. Speak to the hospitalist about admission and further evaluation. History & Record Review Discussion w/independent historian: Patient and Family Additional record(s) reviewed:: Prior inpatient record, Prior outpatient record, Prior ED visit and Prior labs Lab Data Attestation: I reviewed the patient's lab results. Lab results narrative: CBC shows white count 5.6. H&H 11.5 and 35. Platelets 382. Electrolytes show sodium 131. Gap 8. BUN 34 creatinine 1.34. Glucose 133. Troponin normal at 15. BNP elevated at 2497. Labs: Laboratory Results - last 24 hr 07/21/23 20:35 WBC 5.6 RBC 3.63 L Hgb 11.5 L Hct 35.4 L MCV 97.5 MCH 31.7 MCHC 32.5 RDW Std Deviation 65.1 H RDW Coeff of [place] 18.8 H Plt Count 382 MPV 9.3 Immature Gran % (Auto) 0.500 Neut % (Auto) 60.5 Lymph % (Auto) 24.1 [place] % (Auto) 11.9 H Eos % (Auto) 2.1 Baso % (Auto) 0.9 Absolute Neuts (auto) 3.4 Absolute Lymphs (auto) 1.36 Nucleated RBC % 3.0 Differential Comment Sodium 131 L Potassium 4.0 Chloride 93 L Carbon Dioxide 30.0 Anion Gap 8 BUN 34 H Creatinine 1.34 H Est GFR (MDRD) Af Amer 48 L Est GFR (MDRD) Non-Af 40 L BUN/Creatinine Ratio 25.4 H Glucose 133 H Calcium 8.9 Troponin I High Sens 15 B-Natriuretic Peptide 2497.7 H Radiography Chest X-Ray - ED: 1 View, Read by ED Physician, Heart, Mediastinum, Bony Structures, Chronic Changes and Right Effusion Diagnostic Testing: Clinical Impression(s) from Imaging Studies Chest X-Ray 07/21/23 20:43 IMPRESSION: Worsening opacification of the lower right hemithorax. Electronically Signed: Damien Carolina MD at 21:13 EDT , Chest x-ray, cortical, single view shows normal cardiac silhouette. Right hemithorax with moderate to large right pleural effusion. Interpreted by myself and the radiologist. Rhythm Strip Rhythm Strip: A-fib Rate: 98 Ectopy: PVC(s) EKG Initial EKG: Attestation: I personally reviewed and interpreted this EKG as follows: Interpretation: No Acute Injury Pattern and Atrial Fibrillation Comments: A-fib rate of 98. PVCs. No acute signs of RI or ischemia. Discharge Plan Dx/Rx/DC Orders Clinical Impression: Acute dyspnea, CHF (congestive heart failure), Acute renal insufficiency, Chronic a-fib, Chronic anemia, Pleural effusion on right Disposition Disposition: Acute Care Hospital [facility]
--- NOTE | 2023-07-21 20:43 | RAD_ITS ---
STUDY: X-RAY CHEST REASON FOR EXAM: Female, 87 years old. chest pain TECHNIQUE: Single AP portable view of the chest. COMPARISON: 03/16/2023. FINDINGS: Worsening opacification in the lower right lung consistent with atelectasis or infiltrate with small to moderate pleural effusion. Mild atelectasis or infiltrate in the left lung base with probable small effusion. Normal size heart. Previous CABG. Normal mediastinum and alexus. Normal visualized pulmonary arteries. There is atherosclerotic calcification of the aortic arch with tortuosity. There are diffuse degenerative changes of the visualized thoracic spine. There is a right shoulder arthroplasty. There is no demonstrated abnormality of the visualized soft tissue structures of the upper abdomen. RAD/Chest 1 View (Portable) IMPRESSION: Worsening opacification of the lower right hemithorax. Electronically Signed: Damien Carolina MD at 21:13 EDT ,
[2023-07-21 20:54] LABS: Absolute Lymphocyte Count 1.36 X10^3/uL (0.83-4.51); Absolute Neutrophil Count 3.4 X10^3/uL (2.0-7.7); Basophil# 0.05 X10^3/uL; Basophil% 0.9 % (0-1); Eosinophil# 0.12 X10^3/uL; Eosinophils% 2.1 % (0-5); Hematocrit 35.4 % (37-47); Hemoglobin 11.5 g/dL (12.0-15.0); Lymphocyte # 1.36 X10^3/ul (0.83-4.51); Lymphocyte % 24.1 % (19-41); Mean Corp Hgb Conc 32.5 g/dL (32-36); Mean Corpuscular Hgb 31.7 pg (27.0-32.0); Mean Corpuscular Volume 97.5 fL (81-99); Mean Platelet Vol. 9.3 fl (6.2-12.0); Monocyte# 0.67 X10^3/uL; Monocyte% 11.9 % (0-10); Neutrophil # 3.41 X10^3/uL (2.7-7.7); Neutrophil % 60.5 % (47-70); POSITIVE MORPHOLOGY YES; Platelet Count 382 K/mm3 (150-450); RBC Distribution Width CV 18.8 % (11.6-14.6); RBC Distribution Width SD 65.1 fl (35.1-43.9); Red Blood Count 3.63 M/mm3 (4.2-5.4); White Blood Count 5.6 K/mm3 (4.4-11.0)
[2023-07-21 20:58] LABS: Differential Indicated SCAN CRITERIA MET
[2023-07-21 21:03] LABS: BNP,B-Type NATRIURETIC PEPTIDE 2497.7 pg/mL (0-100)
[2023-07-21 21:06] LABS: Anion Gap 8 (5-15); BUN 34 mg/dL (7-18); BUN/Creat Ratio 25.4 RATIO (10-20); Calcium,Total 8.9 mg/dL (8.5-10.1); Chloride 93 mmol/L (98-107); Creatinine, Serum 1.34 mg/dL (0.55-1.02); EST Glomerular Filtration Rate 40 mL/min (>60); Est Glom Filt Rate - Afr Amer 48 mL/min (>60); Glucose 133 mg/dL (74-106); Sodium Level 131 mmol/L (136-145); Troponin-I HS 15 pg/mL (3.0-54.0)
[2023-07-21 21:09] VITALS: BP 168/61; PULSE 86; RESP 22; TEMP 36.6; O2SAT 96
--- NOTE | 2023-07-21 21:44 | HP.PCM.HOS_ITS ---
[facility] - General General Date of Admission: 07/21/23 Date of Service: 07/21/23 Chief Complaint: SOB and extremity edema. HPI Narrative LANNY DIALLO, is a 87 F with a past medical history of essential hypertension, hyperlipidemia, coronary artery disease; status post CABG (2009) and coronary artery stent (2011), history of ascending aortic aneurysm, peripheral vascular disease, chronic left carotid bruit, paroxysmal atrial fibrillation, history of nonrheumatic mitral valve regurgitation, history of chronic diastolic CHF; with preserved LVEF, history of chronic hypoxic respiratory insufficiency on 3L nasal cannula at home (recently increased from 2), history of basal cell carcinoma of scalp, depression, chronic insomnia, glaucoma, GERD and osteoarthritis; with history of back surgery and total knee replacement who presents to [facility] ER complaining of shortness of breath and lower extremity edema. Ms. Diallo reports her symptoms began approximately 2 days prior to admission with a gradual onset of dyspnea on exertion that progressed to shortness of breath at rest. She also admits to mild increase in bilateral l ower extremity pitting edema that is similar to her previous acute exacerbation of CHF in March 2023. She denies associated fever, chills, nausea or vomiting. In the ER she was noted to have a chest x-ray positive for worsening opacification in the right lower lobe with small to moderate pleural effusion along with evidence of previous CABG plus an elevated BNP of 2,497.7 pg/mL present on admission consistent with acute exacerbation of chronic diastolic CHF; with preserved LVEF complicated by clinical evidence of acute hypoxic respiratory insufficiency and she was then admitted to the PCU for ongoing care for status expected to be greater than 48 hours. [facility] Medical History (HFpEF) heart failure with preserved ejection fraction Aortic insufficiency Aortic valve disorder Ascending aortic aneurysm Atherosclerosis of coronary artery bypass graft without angina pectoris Atherosclerotic heart disease of [place] coronary artery without angina pectoris Atrial flutter Basal cell carcinoma of scalp Carotid bruit Chest pain Chronic diastolic (congestive) heart failure Chronic insomnia Diastolic dysfunction Essential hypertension Family history of premature coronary heart disease GERD (gastroesophageal reflux disease) History of basal cell carcinoma Hyperlipidemia Left carotid bruit manager long term care use of drug Mitral valve disorder Mitral valve regurgitation Nonrheumatic mitral valve regurgitation Paroxysmal atrial fibrillation Paroxysmal atrial fibrillation Peripheral vascular disease Scabies Sinus bradycardia Thoracic aortic aneurysm Home Medications calcium carb-vit [id number] 333 mg-200 unit-133 mg-5 mg tablet 1 tab PO DAILY SUPPLEMENT 05/22/20 [History Last Taken 03/16/23] cholecalciferol (vitamin D3) 25 mcg (1,000 unit) tablet 25 mcg PO DAILY SUPPLEMENT 05/22/20 [History Last Taken 03/16/23] fish, borage, flaxseed oils-omega 3,6,9 cb #1 400 mg-400 mg-400 mg cap 1 cap PO DAILY SUPPLEMENT 05/22/20 [History Last Taken 03/16/23] nitroglycerin 0.4 mg sublingual tablet 0.4 mg sublingual Q5M PRN Chest Pain #25 tabs 03/06/21 [Rx Last Taken Unknown] paroxetine HCl 10 mg tablet 10 mg PO DAILY MOOD 12/20/21 [History Last Taken 03/15/23] turmeric 400 mg capsule 400 mg PO DAILY SUPPLEMENT 12/20/21 [History Last Taken 03/16/23] isosorbide mononitrate 60 mg tablet,extended release 24 hr 60 mg PO DAILY chest pain #90 tabs 11/15/22 [Rx Last Taken 03/16/23] latanoprost 0.005 % eye drops 1 drp EACH EYE QPM eye pressur 03/16/23 [History Last Taken Unknown] dextromethorphan-guaifenesin 30 mg-600 mg tablet extended [id number] hr (Mucinex DM) 2 tab PO BID 7 days #28 tabs 03/20/23 [Rx Last Taken Unknown] furosemide 40 mg tablet 40 mg PO BIDLX 30 days #60 tabs 03/20/23 [Rx Last Taken Unknown] magnesium chloride 64 mg (magnesium chloride) tablet,delayed release (Mag 64) 128 mg (2 x 64 mg) PO BID 7 days #28 tabs 03/20/23 [Rx Last Taken Unknown] spironolactone 25 mg tablet 25 mg PO DAILY 30 days #30 tabs 03/20/23 [Rx Last Taken Unknown] metoprolol tartrate 50 mg tablet 50 mg PO BID blood pressure 04/16/23 [History Last Taken Unknown] Allergy/AdvReac Type Severity Reaction Status Date / Time alendronate sodium Allergy Unknown Verified 07/21/23 20:09 [From Fosamax] atorvastatin calcium Allergy Unknown Verified 07/21/23 20:09 [From Lipitor] colestipol HCl Allergy Unknown Verified 07/21/23 20:09 [From Colestid] cortisone acetate Allergy Unknown Verified 07/21/23 20:09 [From Cortone] ezetimibe [From Zetia] Allergy Unknown Verified 07/21/23 20:09 gabapentin Allergy Unknown Verified 07/21/23 20:09 goserelin acetate Allergy Unknown Verified 07/21/23 20:09 [From Zoladex] nabumetone Allergy Other Verified 07/21/23 20:09 paroxetine HCl [From Paxil] Allergy Unknown Verified 07/21/23 20:09 rosuvastatin calcium Allergy Unknown Verified 07/21/23 20:09 [From Crestor] sertraline HCl [From Zoloft] Allergy Unknown Verified 07/21/23 20:09 venlafaxine HCl Allergy Unknown Verified 07/21/23 20:09 [From Effexor] carvedilol AdvReac Unknown Verified 07/21/23 20:09 hydrocodone bitartrate AdvReac KEEPS ME Verified 07/21/23 20:09 [From Vicodin] AWAKE Family History Brother CAD (coronary artery disease) Diabetes Myocardial infarction Father CAD (coronary artery disease) Other Family history of premature coronary heart disease Surgical History Aortocoronary bypass status (~2009) History of back surgery History of knee replacement, total History of percutaneous transluminal coronary angioplasty History of right shoulder replacement History of total hysterectomy Presence of stent in coronary artery (~11/13/11) Social History Smoking Status: Never smoker alcohol intake: never substance use type: does not use caffeine: Yes Type: coffee Number of servings: 2 what type of physical activity do you participate in: none seatbelt use: always do you feel safe at home: Yes ROS ROS Narrative Review of systems: General: Patient admits to shortness of breath and bilateral lower extremity swelling as per HPI. Patient denies fevers or chills. HENT: Denies headache, denies stuffy nose, denies sore throat EYES: Denies changes in vision or discharge from eyes. Resp: Patient admits to dyspnea on exertion that progressed to shortness of breath at rest as per HPI. Cardiac: Denies chest pain or palpitations. GI: Denies abdominal pain, denies changes in bowel, denies nausea or vomiting. : Denies changes in urination Extremity: Patient admits to significant bilateral lower extremity edema as per HPI. Musculoskeletal: Patient denies arthralgias or myalgias. Neuro: Patient denies headache, paresthesias or focal neurologic weakness. Heme: Denies any bleeding or bruising Skin: Denies rashes Psychiatric: No complaints voiced related to uncontrolled depression or anxiety. Endocrine: No polyuria, polydipsia or polyphagia. The rest of the 14 point ROS was negative except for positives in HPI. Vital Signs Vital Signs Vital Signs: 07/21/23 20:05 07/21/23 20:05 07/21/23 20:05 Temperature 96.9 F L 96.9 F L 96.9 F L Temperature Source Temporal Temporal Temporal Pulse Rate 102 H 104 H 104 H Respiratory Rate 20 H 22 H 22 H Respiratory Effort Respiratory Depth Respiratory Pattern Blood Pressure 132/73 H 132/73 H 132/73 H Blood Pressure Mean 92 92 92 Pulse Ox 100 100 100 Oxygen Delivery Method Nasal Cannula Nasal Cannula Nasal Cannula Oxygen Flow Rate (L/min) 3 3 07/21/23 20:29 07/21/23 20:29 07/21/23 21:09 Temperature 97.8 F Temperature Source Axillary Pulse Rate 86 Respiratory Rate 22 H Respiratory Effort Short of Breath Respiratory Depth Normal Respiratory Pattern Tachypnea Blood Pressure 168/61 H Blood Pressure Mean 96 Pulse Ox 96 Oxygen Delivery Method Nasal Cannula Nasal Cannula Nasal Cannula Oxygen Flow Rate (L/min) 3 3 3 Physical Exam Const alert, oriented x3, no apparent distress, average body habitus and healthy appearing General Appearance: cooperative HEENT normocephalic, head/scalp atraumatic, hearing grossly normal bilaterally and moist oral mucous membranes Eyes PERRL and EOMs intact bilaterally Neck no lymphadenopathy and supple Resp Resp Narrative: Decreased breath sounds over right lower lobe. Cardio regular rate and regular rhythm GI normal to inspection, nondistended, normoactive bowel sounds, soft to palpation, non-tender and non-distended Extremity Extremity Narrative: 1-2+ bilateral lower extremity pitting edema noted. Skin Skin Narrative: Patient has no evidence of rash or jaundice. Neuro oriented x3, CN's II-XII intact bilaterally, moves all extremities and no focal motor deficits Sensorium / Orientation: awake, alert, oriented to person, oriented to place and oriented to time Speech: speech normal Psych affect normal Results Medical Records Data Attestation: I reviewed the patient's medical records Lab / Micro Data Attestation: I reviewed the patient's lab results. 07/21/23 20:35 07/22/23 03:50 Labs: Laboratory Results - last 24 hr 07/21/23 20:35: WBC 5.6, RBC 3.63 L, Hgb 11.5 L, Hct 35.4 L, MCV 97.5, MCH 31.7, MCHC 32.5, RDW Std Deviation 65.1 H, RDW Coeff of Zuleima 18.8 H, Plt Count 382, MPV 9.3, Immature Gran % (Auto) 0.500, Neut % (Auto) 60.5, Lymph % (Auto) 24.1, [place] % (Auto) 11.9 H, Eos % (Auto) 2.1, Baso % (Auto) 0.9, Absolute Neuts (auto) 3.4, Absolute Lymphs (auto) 1.36, Nucleated RBC % 3.0, Differential Comment , Sodium 131 L, Potassium 4.0, Chloride 93 L, Carbon Dioxide 30.0, Anion Gap 8, BUN 34 H, Creatinine 1.34 H, Est GFR (MDRD) Af Amer 48 L, Est GFR (MDRD) Non-Af 40 L, BUN/Creatinine Ratio 25.4 H, Glucose 133 H, Calcium 8.9, Troponin I High Sens 15, B-Natriuretic Peptide 2497.7 H Rhythm Strip Rhythm Strip: A-fib Rate: 98 Ectopy: PVC(s) Imaging Radiology Impression Chest X-Ray 07/21/23 20:43 IMPRESSION: Worsening opacification of the lower right hemithorax. Electronically Signed: Damien Carolina MD at 21:13 EDT , Assessment & Plan Assessment/Plan (1) (HFpEF) heart failure with preserved ejection fraction: QUALIFIERS: Heart failure chronicity: chronic Qualified Code(s): I50.32 - Chronic diastolic (congestive) heart failure (2) Pleural effusion on right: (3) Respiratory insufficiency: PLAN: Plan 1. Acute exacerbation of chronic diastolic CHF; with preserved LVEF evidenced by right pleural effusion with elevated BNP of 2,497.7 pg/mL present on admission - Admit to PCU. Continue IV Lasix plus supplemental potassium and magnesium. Recheck BNP in the a.m. to follow trend. Also recheck chest x-ray in a.m. to see if right pleural effusion can be mobilized medically in an effort to avoid thoracentesis. Finally, we will consult service advisor on-call to see this patient on rounds in the a.m. for further recommendations with help appreciated in advance. 2. [id number] hypoxic respiratory insufficiency arising from #1 - Wean additional supplemental oxygen back to baseline levels as tolerated. 3. CAD; status post CABG (2009) and coronary artery stent (2011) - Stable. Continue home medications as previous plus serialize troponin. 4. PAF; rate controlled - Resume current management. 5. Essential hypertension - Continue home regimen plus give IV hydralazine as needed for systolic blood pressure greater than 160 mmHg. 6. Hyperlipidemia - Resume statin and check lipid profile. 7. History of ascending aortic aneurysm - Apparently stable. Echocardiogram pending for #1. 8. Peripheral vascular disease - Stable. 9. Chronic left carotid bruit - Noted. Check carotid Doppler to evaluate for possible significant stenosis. 10. History of nonrheumatic mitral valve regurgitation - Noted. Echocardiogram pending for #1. 11. History of basal cell carcinoma of scalp - Noted. 12. Depression - Resume current regimen plus give as needed Xanax for breakthrough symptoms. 13. Chronic insomnia - Stable. Give melatonin p.o. nightly as needed. 14. Glaucoma - Resume latanoprost eyedrops as previous. 15. GERD - Stable with patient currently not on antacid medication. 16. Osteoarthritis; with history of back surgery, total knee replacement and shoulder surgery - Give Tylenol as needed. 17. DVT prophylaxis - Heparin 5,000 units SQ twice daily. Total time: Approximately 55 minutes. Charges/Coding Visit Charges Inpatient E&M: 35171 Init Hosp L2
[2023-07-21 22:00] VITALS: BP 137/77; PULSE 84; RESP 25; TEMP 36.2; O2SAT 99
[2023-07-21 22:05] VITALS: BP 137/77; PULSE 96; RESP 22; TEMP 36.5; O2SAT 99
[2023-07-21] MEDS: Furosemide 20 MG/2 ML VIAL IV (23:05)
[2023-07-21 23:37] VITALS: BP 143/99; PULSE 94; RESP 18; TEMP 36.7; O2SAT 100
[2023-07-22] VITALS (7 sets, daily range): BP systolic 117–134; BP diastolic 66–89; PULSE 74–85; RESP 14–18; TEMP 36.2–36.6; O2SAT 98–100
[2023-07-22 00:32] LABS: Troponin-I HS 15 pg/mL (3.0-54.0)
[2023-07-22] MEDS: Potassium Chloride Oral Tablet 20 MEQ 40 MEQ PO (01:14)
[2023-07-22 04:29] LABS: Troponin-I HS 14 pg/mL (3.0-54.0)
[2023-07-22 04:35] LABS: Anion Gap 9 (5-15); BUN 32 mg/dL (7-18); BUN/Creat Ratio 28.1 RATIO (10-20); Calcium,Total 8.6 mg/dL (8.5-10.1); Chloride 96 mmol/L (98-107); Cholesterol 132 mg/dL (200); Creatinine, Serum 1.14 mg/dL (0.55-1.02); EST Glomerular Filtration Rate 48 mL/min (>60); Est Glom Filt Rate - Afr Amer 58 mL/min (>60); Estimated Creatinine Clearance 26.82 ml/min; Glucose 102 mg/dL (74-106); High Density Lipoprotein 40 mg/dL; Potassium 3.9 mmol/L (3.5-5.1); Sodium Level 133 mmol/L (136-145); Triglycerides 50 mg/dL; Very Low Density Lipoprotein 10 mg/dL (5-40)
--- NOTE | 2023-07-22 05:55 | RAD_ITS ---
STUDY: X-RAY CHEST REASON FOR EXAM: Female, 87 years old. AE of Chronic Diastolic CHF; with preserved LVEF TECHNIQUE: Single AP portable view of the chest. COMPARISON: Comparison is made with prior study dated July 21, 2023. FINDINGS: EKG electrodes are seen. Mild increase in the right pleural effusion with right basilar atelectasis. There has been improvement in the CHF. Blunting of the left costophrenic angle. Sternal cerclage wires and vascular clips are present from a prior sternotomy and coronary artery bypass graft procedure (CABG). Cardiomegaly. Normal mediastinum and alexus. Normal visualized pulmonary arteries. There is atherosclerotic calcification of the aortic arch with tortuosity. There are degenerative changes of the visualized thoracic spine. There is degenerative osteoarthritis of the left shoulder. Prior right shoulder replacement. There is no demonstrated abnormality of the visualized soft tissue structures of the upper abdomen. RAD/Chest PA and Lateral IMPRESSION: Interval improvement in the CHF although there has been mild degree of progression in the right pleural effusion with right basilar atelectasis. Electronically Signed: Mariusz Alarcon MD at 12:38 EDT ,
--- NOTE | 2023-07-22 07:47 | PCM.PN.HOSP ---
Reason for Visit Reason for Visit: Diagnoses Unspecified diastolic (congestive) heart failure (07/21/23) Chronic diastolic (congestive) heart failure (07/21/23) Pleural effusion, not elsewhere classified (07/21/23) Other abnormalities of breathing (07/21/23) Objective Data Objective Data Vital Signs: Vital Signs Temp Pulse Resp BP Pulse Ox O2 Del Method O2 Flow Rate 97.2 F L 81 18 134/77 H 98 Nasal Cannula 2 07/22/23 04:02 07/22/23 04:02 07/22/23 04:02 07/22/23 04:02 07/22/23 04:02 07/22/23 04:02 07/22/23 04:02 Oxygen Flow Rate (L/min) 2 Oxygen Delivery Method Nasal Cannula Weight: 109 lb 12.643 oz Body Mass Index (BMI) 20.0 Lab / Micro Data 07/21/23 20:35 07/22/23 03:50 Labs: Laboratory Results - last 24 hr 07/21/23 20:35: WBC 5.6, RBC 3.63 L, Hgb 11.5 L, Hct 35.4 L, MCV 97.5, MCH 31.7, MCHC 32.5, RDW Std Deviation 65.1 H, RDW Coeff of Zuleima 18.8 H, Plt Count 382, MPV 9.3, Immature Gran % (Auto) 0.500, Neut % (Auto) 60.5, Lymph % (Auto) 24.1, [place] % (Auto) 11.9 H, Eos % (Auto) 2.1, Baso % (Auto) 0.9, Absolute Neuts (auto) 3.4, Absolute Lymphs (auto) 1.36, Nucleated RBC % 3.0, Differential Comment , Sodium 131 L, Potassium 4.0, Chloride 93 L, Carbon Dioxide 30.0, Anion Gap 8, BUN 34 H, Creatinine 1.34 H, Est GFR (MDRD) Af Amer 48 L, Est GFR (MDRD) Non-Af 40 L, BUN/Creatinine Ratio 25.4 H, Glucose 133 H, Calcium 8.9, Troponin I High Sens 15, B-Natriuretic Peptide 2497.7 H 07/21/23 23:51: Troponin I High Sens 15 07/22/23 03:50: Sodium 133 L, Potassium 3.9, Chloride 96 L, Carbon Dioxide 28.0, Anion Gap 9, BUN 32 H, Creatinine 1.14 H, Estim Creat Clear Calc 26.82, Est GFR (MDRD) Af Amer 58 L, Est GFR (MDRD) Non-Af 48 L, BUN/Creatinine Ratio 28.1 H, Glucose 102, Calcium 8.6, Troponin I High Sens 14, B-Natriuretic Peptide 2402.0 H, Triglycerides 50, Cholesterol 132, LDL Cholesterol 82, VLDL Cholesterol 10, HDL Cholesterol 40 Radiography Diagnostic Testing: Radiology Impression Chest X-Ray 07/21/23 20:43 IMPRESSION: Worsening opacification of the lower right hemithorax. Electronically Signed: Damien Carolina MD at 21:13 EDT , Rhythm Strip Rhythm Strip: A-fib Rate: 98 Ectopy: PVC(s) Physical Exam Narrative Patient admitted with shortness of breath and dyspnea on minimal exertion. She felt mild chest congestion but denies chest pressure/squeezing sensation or chest pain. Mild dry cough. No fever Physical exam General: Alert, Oriented x3, Cooperative HEENT: Very hard of hearing atraumatic, PERRLA, EOMI, Normocephalic Oral: No Gingival or Mucosal Lesions/ Ulcerations Neck: Supple, No JVD, Negative Carotid Bruits Chest wall/Lungs: Air entry diminished in the posterior half of right lung, moderate pleural effusion with stony dullness. Left lung clear. Cardiovascular: Regular rate, Regular Rhythm, Normal S1, Normal S2, systolic murmur present. Abdomen: Bowel Sounds Present, Soft, Non Tender, Non-Distended : No dysuria. No renal angle tenderness. No suprapubic tenderness. Extremities: 2+ pitting bilateral ankle edema, Capillary Refill Less than 3 Seconds Skin: No rashes, No breakdown Musculoskeletal: No Tenderness to Palpation of Joints or Extremities. ROM restricted Neurological: Cranial nerves II-XII grossly intact, DTR 2+/4. No acute focal neurological deficit. Psych/Mental Status: Normal Affect, Appropriate. Assessment & Plan Assessment/Plan (1) (HFpEF) heart failure with preserved ejection fraction: QUALIFIERS: Heart failure chronicity: chronic Qualified Code(s): I50.32 - Chronic diastolic (congestive) heart failure (2) Pleural effusion on right: (3) Respiratory insufficiency: PLAN: Plan 1. Acute exacerbation of chronic diastolic CHF; with preserved LVEF evidenced by right pleural effusion with elevated BNP of 2,497.7 pg/mL present on admission - Admit to PCU. Continue IV Lasix plus supplemental potassium and magnesium. Chest x-ray reviewed and shows right moderate effusion worse than the previous 03/16/2023. He also has left lung base atelectasis. BNP does not show change. Repeat chest x-ray does not show change since yesterday therefore ultrasound-guided thoracocentesis with diagnostic labs ordered. Discussed with the lockstitch front maker, Dr. Fountain advised to treat with diuretic and if does not get better then let him know to see the patient.Patient on furosemide 40 mg IV twice daily. Heart failure core measures including intake and output, fluid restriction less than 1500 mL, daily weight monitoring, kidney and electrolytes monitoring. On metoprolol, Imdur, Jardiance and spironolactone 2. Acute respiratory insufficiency with mild hypoxia:- Wean additional supplemental oxygen back to baseline levels as tolerated. 3. CAD; status post CABG (2009) and coronary artery stent (2011) - Stable. Continue home medications as previous plus serialize troponin. 4. PAF; rate controlled - Resume current management. 5. Essential hypertension - Continue home regimen plus give IV hydralazine as needed for systolic blood pressure greater than 160 mmHg. 6. Hyperlipidemia - Resume statin and check lipid profile. 7. History of ascending aortic aneurysm - Apparently stable. Echocardiogram pending for #1. 8. Peripheral vascular disease - Stable. 9. Chronic left carotid bruit - Noted. Check carotid Doppler to evaluate for possible significant stenosis. 10. History of nonrheumatic mitral valve regurgitation - Noted. Echocardiogram pending for #1. 11. History of basal cell carcinoma of scalp - Noted. 12. Depression - Resume current regimen plus give as needed Xanax for breakthrough symptoms. 13. Chronic insomnia - Stable. Give melatonin p.o. nightly as needed. 14. Glaucoma - Resume latanoprost eyedrops as previous. 15. GERD - Stable with patient currently not on antacid medication. 16. Osteoarthritis; with history of back surgery, total knee replacement and shoulder surgery - Give Tylenol as needed. 17. DVT prophylaxis -enoxaparin 30 mg subcu daily.. Charges/Coding Visit Charges Inpatient E&M: 87538 Subs Hosp L2
--- NOTE | 2023-07-22 09:35 | ECHOD_ITS ---
Reason For Study: CHF Procedure This was a 2D Doppler, Color Flow transthoracic echocardiogram. Exam performed portable in patient room. Left Ventricle Normal LV size. The estimated ejection fraction is 50 %. Unable to assess diastolic dysfunction. No regional wall motion abnormalities noted. Right Ventricle Moderately dilated right ventricle. Normal systolic function. Atria The left atrium is mildly enlarged. The right atrium is mildly enlarged. No doppler evidence for ASD. Mitral Valve There is no mitral valve stenosis. Moderate (2+) mitral valve insufficiency. Tricuspid Valve There is no tricuspid stenosis. Mild eccentric tricuspid valve insufficiency. Pulmonary artery systolic pressure is 55 mmHg. Aortic Valve Trisinus/trileaflet aortic valve. There is no aortic stenosis. Mild (1+) aortic valve insufficiency. Pulmonic Valve There is no pulmonic valvular stenosis. Trivial pulmonic valve insufficiency. Great Vessels Normal aortic root. Pericardium/Pleural No pericardial effusion. MMode/2D Measurements & Calculations LVIDd: 4.4 cm IVSd: 0.88 cm Ao root diam: 3.5 cm LVIDs: 3.4 cm LVPWd: 0.88 cm RVDd: 3.8 cm FS: 22.2 % LAV(MOD-sp4): 80.7 ml LVAd ap4: 25.0 cm2 LVAd ap2: 27.9 cm2 LVLd ap4: 7.0 cm LVLd ap2: 7.9 cm EDV(MOD-sp4): 75.3 ml EDV(MOD-sp2): 83.4 ml EDV(sp4-el): 76.4 ml EDV(sp2-el): 84.0 ml LVAs ap4: 17.6 cm2 LVAs ap2: 19.3 cm2 LVLs ap4: 6.3 cm LVLs ap2: 6.6 cm ESV(MOD-sp4): 43.5 ml ESV(MOD-sp2): 48.4 ml ESV(sp4-el): 42.1 ml ESV(sp2-el): 47.9 ml EF(MOD-sp4): 42.2 % EF(MOD-sp2): 42.0 % EF(sp4-el): 44.9 % SV(MOD-sp4): 31.8 ml SV(MOD-sp2): 35.0 ml SV(sp4-el): 34.3 ml LA dimension(2D): 4.2 cm LA A4 area: 24.3 cm2 RA A4 area: 21.5 cm2 TAPSE: 1.4 cm Doppler Measurements & Calculations MV E max lucius: 77.8 cm/sec Lat Peak E' Lucius: 12.7 cm/sec Med Peak E' Lucius: 9.7 cm/sec MV A max lucius: 28.1 cm/sec E/E' lat: 6.1 E/E' med: 8.0 MV E/A: 2.8 Ao V2 max: 95.5 cm/sec AI max lucius: 403.3 cm/sec LV V1 max: 65.5 cm/sec Ao max P.6 mmHg AI max P.2 mmHg LV V1 max P.7 mmHg Ao V2 mean: 58.4 cm/sec AI dec slope: 396.0 cm/sec2 LV V1 mean P.68 mmHg Ao mean P.5 mmHg AI P1/2t: 298.3 msec LV V1 mean: 38.0 cm/sec Ao V2 VTI: 13.4 cm LV V1 VTI: 9.1 cm AV (velocity ratio): 0.68 MR max lucius: 530.4 cm/sec PA V2 max: 55.1 cm/sec TR max lucius: 332.2 cm/sec MR max P.6 mmHg PA V2 mean: 36.7 cm/sec TR max P.1 mmHg MR mean lucius: 426.4 cm/sec PA V2 VTI: 9.4 cm MR mean P.3 mmHg MR VTI: 161.5 cm ECHO/Echo Complete Interpretation Summary The estimated ejection fraction is 50 %. Unable to assess diastolic dysfunction. Moderately dilated right ventricle. The left atrium is mildly enlarged. The right atrium is mildly enlarged. Moderate (2+) mitral valve insufficiency. Mild eccentric tricuspid valve insufficiency. Mild (1+) aortic valve insufficiency. Ordering Physician: Rajesh Sun Referring Physician: Rachel Bernabe Performed By: Tisha Burns RDCS, RVT
[2023-07-22] MEDS: Enoxaparin 30 MG/0.3 ML Syringe SC (10:16)
[2023-07-22] MEDS: Ondansetron 4 MG/2 ML Vial IV (10:16)
[2023-07-22] MEDS: Cholecalciferol (VIT D3) 25 MCG TABLET (1,000 UNITS) PO (10:17)
[2023-07-22] MEDS: Magnesium Chloride 64 MG Delay Rel.Tablet 128 MG PO ×2 (10:17→21:39)
[2023-07-22] MEDS: Empagliflozin 10 MG Tablet PO (10:17)
[2023-07-22] MEDS: Metoprolol Tartrate 50 MG Tablet PO ×2 (10:18→21:38)
[2023-07-22] MEDS: Furosemide 40 MG/4 ML Vial IV ×2 (10:18→17:39)
[2023-07-22] MEDS: guaiFENesin/D-Methorphan TAB.SR.12H 2 TABLET PO ×2 (10:18→21:39)
[2023-07-22] MEDS: Spironolactone 25 MG Tablet PO (10:19)
[2023-07-22] MEDS: PARoxetine 10 MG Tablet PO (10:19)
[2023-07-22] MEDS: Isosorbide Mononitrate 60 MG Tablet PO (10:19)
--- NOTE | 2023-07-22 13:13 | CHAPLAIN ---
Type of Pastoral Visit _x__ Initial Visit ___ Follow-up Visit ___ On-call Visit ___ General Patient Visit ___ Spiritual Assessment ___ Family Conference ___ Bereavement ___ Rapid Response ___ Code Blue ___ Other (describe below) Pastoral Care Referral From _x__ Patient ___ Family ___ Nurse ___ Physician ___ Corporate Sales Trainer ___ Eeo Officer ___ Other (describe below) Sacrament/Intervention _x__ Active listening ___ Anointing ___ Scientologist ___ Bereavement ___ Communion ___ Arabella exploration ___ ___ Life review _x__ Prayer ___ Reconciliation ___ Sacrament of Sick _x__ Supportive presence ___ Wedding ___ Other (describe below) Pastoral Comments patient is alert and able to answer questions; pt had visit with communion earlier and is pleased about that; pt speaks of her family; prayer given; no other needs
[2023-07-22 14:50] LABS: Globulin 2.8 g/dL (2.2-4.2); LDH 227 U/L (84-246); Protein, Total 5.7 g/dL (6.4-8.2)
--- NOTE | 2023-07-22 15:45 | CASEMGMT ---
RN CM Face to Face with patient for initial transition planning/care coordination assessment. RN CM introduced self and role at [facility]. Patient sitting in chair, alert and oriented, very hard of hearing. Patient requested CM call daughter Tomeka to complete assessment. Patient willing to participate in assessment and is able to answer all questions appropriately. Care providers, pharmacy, and demographics verified. PCP: Srinivasa Specialists: [facility] Pharmacy: [facility] Insurance: [facility] Prescription Benefit: yes Living Will/HPOA: yes, daughter Amadasa Matthews LNOK: daughter, son Living Arrangements: Patient lives alone in a 2 story home with bed and bath on first floor. Per daughter patient is independent at home. Transportation: self, daughter DME/HHC: Patient has walker, cane, grab bars, and home oxygen through [employer]. Patient has been to TCU and [facility] in the past. Daughter states her and brother have been having conversations with patient regarding possible assisted living or SNF. Will monitor progress with therapy. Daughter states she has no further needs or concerns at this time. CM to follow for discharge planning needs that may arise. Disposition Plan: TBD, will monitor progress with therapy for disposition recommendations. Talita ROSAS, RN, CM
[2023-07-22] MEDS: 0.9% Saline Lock 10 ML Syringe IV ×2 (17:40→21:47)
[2023-07-22] MEDS: Latanoprost 0.005% 1 Bottle 1 DRP EACH EYE (21:38)
[2023-07-23] VITALS (10 sets, daily range): BP systolic 115–137; BP diastolic 59–87; PULSE 75–101; RESP 16–18; TEMP 36.2–36.4; O2SAT 98–100
[2023-07-23 06:40] LABS: Absolute Lymphocyte Count 1.43 X10^3/uL (0.83-4.51); Absolute Neutrophil Count 3.2 X10^3/uL (2.0-7.7); Basophil# 0.04 X10^3/uL; Basophil% 0.7 % (0-1); Eosinophil# 0.18 X10^3/uL; Eosinophils% 3.3 % (0-5); Hematocrit 32.5 % (37-47); Hemoglobin 10.5 g/dL (12.0-15.0); Lymphocyte # 1.43 X10^3/ul (0.83-4.51); Lymphocyte % 26.5 % (19-41); Mean Corp Hgb Conc 32.3 g/dL (32-36); Mean Corpuscular Hgb 31.6 pg (27.0-32.0); Mean Corpuscular Volume 97.9 fL (81-99); Mean Platelet Vol. 9.1 fl (6.2-12.0); Monocyte# 0.58 X10^3/uL; Monocyte% 10.7 % (0-10); NRBC Flagged by Analyzer 0.6 % (0-5); Neutrophil # 3.15 X10^3/uL (2.7-7.7); Neutrophil % 58.4 % (47-70); POSITIVE MORPHOLOGY YES; Platelet Count 339 K/mm3 (150-450); RBC Distribution Width CV 19.2 % (11.6-14.6); RBC Distribution Width SD 67.7 fl (35.1-43.9); Red Blood Count 3.32 M/mm3 (4.2-5.4); White Blood Count 5.4 K/mm3 (4.4-11.0)
[2023-07-23 06:51] LABS: Differential Indicated SCAN CRITERIA MET
[2023-07-23 07:11] LABS: AST(SGOT) 34 U/L (15-37); Alanine Aminotransfer ALT/SGPT 23 U/L (13-56); Albumin, Serum 2.9 g/dL (3.2-5.0); Alkaline Phosphatase 54 U/L (45-117); Anion Gap 7 (5-15); BUN 33 mg/dL (7-18); BUN/Creat Ratio 27.7 RATIO (10-20); Bilirubin, Direct 0.48 mg/dL (0.00-0.30); Calcium,Total 8.8 mg/dL (8.5-10.1); Chloride 98 mmol/L (98-107); Creatinine, Serum 1.19 mg/dL (0.55-1.02); EST Glomerular Filtration Rate 45 mL/min (>60); Est Glom Filt Rate - Afr Amer 55 mL/min (>60); Estimated Creatinine Clearance 25.15 ml/min; Globulin 2.8 g/dL (2.2-4.2); Glucose 88 mg/dL (74-106); LDH 222 U/L (84-246); Potassium 3.8 mmol/L (3.5-5.1); Protein, Total 5.7 g/dL (6.4-8.2); Sodium Level 133 mmol/L (136-145)
[2023-07-23 08:49] LABS: Anisocytosis 2+
[2023-07-23] MEDS: Lidocaine 2% (20 ml mdv) 20 ML Vial INFILT (09:36)
--- NOTE | 2023-07-23 09:40 | FLU_PTH ---
PATIENT: LANNY DIALLO I LOC: [facility] U#:[id number] AGE/SX: 88/F ROOM: [facility] RE07/21/[address]: Dr. Rajesh Sun MD : [id number] BED: 1 DIS: 07/24/2023 SPEC #: [id number] RECD: 07/23/23 10:01 STATUS: JENNIE RESerenity #: [id number] JOSHUA: 07/23/23 09:[address]: Rajesh Sun DEPT: CYTOLOGY RECD BY: Malia Weber ENTERED: 07/23/23 10:51 SP TYPE: Fluid OTHR DR: DO Dr. Rachel Kaba DO Tissues: THORACIC FLUID Procedures: Special Stain Group II Surgery Specimen Level IV Cytospin Fluid HEADER OPERATION: Thoracentesis PRE-OP DIAGNOSIS: Pleural effusion TISSUE SUBMITTED: Thoracentesis fluid for cytology DIAGNOSIS CYTOLOGY Thoracentesis fluid for cytology (cytospin): Negative for malignant cells. See comment. SJ/mr 07/24/23 COMMENT Clinical correlation and appropriate follow up are necessary. CYTOLOGY STUDY Slides are reviewed. CYTOLOGY GROSS Received is 80 ml of reddish orange-cloudy fluid labeled with the patient's name and and designated per the requisition as Thoracentesis fluid. Submitted for cytology preparation including cell block. mr 07/23/23 TC:5 CPT: 51033 ,48565
--- NOTE | 2023-07-23 09:48 | RAD_ITS ---
STUDY: X-RAY CHEST REASON FOR EXAM: Female, 88 years old. Post thora TECHNIQUE: AP and inspiration and expiration views. COMPARISON: Comparison is made with prior study of July 22, 2023. FINDINGS: The patient is status post right thoracentesis. No evidence of pneumothorax. Residual pleural parenchymal changes are seen at the right lung base. RAD/Chest Insp/Exp 2 View IMPRESSION: Status post right thoracentesis. No evidence of pneumothorax. Mild residual pleural-parenchymal changes at the right lung base. Electronically Signed: Mariusz Alarcon MD at 10:16 EDT ,
[2023-07-23] MEDS: Metoprolol Tartrate 50 MG Tablet PO ×2 (10:08→20:04)
[2023-07-23] MEDS: PARoxetine 10 MG Tablet PO (10:08)
[2023-07-23] MEDS: Magnesium Chloride 64 MG Delay Rel.Tablet 128 MG PO ×2 (10:08→20:04)
[2023-07-23] MEDS: Spironolactone 25 MG Tablet PO (10:08)
[2023-07-23] MEDS: Empagliflozin 10 MG Tablet PO (10:09)
[2023-07-23] MEDS: guaiFENesin/D-Methorphan TAB.SR.12H 2 TABLET PO ×2 (10:09→20:04)
[2023-07-23] MEDS: Furosemide 40 MG/4 ML Vial IV (10:09)
[2023-07-23] MEDS: Cholecalciferol (VIT D3) 25 MCG TABLET (1,000 UNITS) PO (10:09)
[2023-07-23] MEDS: Isosorbide Mononitrate 60 MG Tablet PO (10:09)
--- NOTE | 2023-07-23 10:14 | PCM.OP.PRO ---
Procedure Report Date of Procedure: 07/23/23 Assessment & Plan Assessment/Plan (1) Pleural effusion on right: PLAN: PROCEDURE: Ultrasound Guided Thoracentesis ORDERING PROVIDER: Dr. Sun INDICATION: Female, 88 years old. Right pleural effusion. PROVIDER: ALCON Addison PROCEDURE: The risks, benefits, and alternatives to the procedure were explained to the patient. The specific risks of bleeding, infection, and pneumothorax requiring chest tube insertion were discussed and accepted. Written informed consent was obtained. The patient was placed in the sitting, upright position. Ultrasonographic evaluation of the bilateral lower pleural spaces was carried out. An adequate pocket was identified in the right lower pleural space.The overlying skin was prepped and draped in sterile fashion. 2% lidocaine was administered subcutaneously for local anesthesia. Under ultrasound guidance, a 5-Occitan thoracentesis needle/catheter system was advanced into the right posterior lower pleural fluid collection. 950 ml of joleen colored fluid was drained. 100 mL of this fluid was collected and sent to the laboratory for analysis. The catheter was removed, and a sterile dressing was applied. The patient tolerated the procedure well. A chest x-ray was ordered. IMPRESSION: Successful ultrasound-guided thoracentesis of right pleural effusion Procedures Radiology Radiology US Procedures: 34680 Thoracentesis
[2023-07-23 10:17] LABS: Cytology, Body Fluid / CSF SEE PATHOLOGY REPORT
[2023-07-23] MEDS: 0.9% Saline Lock 10 ML Syringe IV (10:17)
[2023-07-23 10:36] LABS: Glucose, Body Fluid 102 mg/dL (40-70); LDH,Body Fluid 74 Units/L (Not Establ.); Protein, Body Fluid 2.3 g/dL (Not Establ.)
[2023-07-23 10:51] LABS: Body Fluid Mononuclear WBC # 0.435 10^3/uL; Body Fluid Mononuclear WBC % 90.8 %; Body Fluid Polynuclear WBC # 0.044 10^3/uL; Body Fluid Polynuclear WBC % 9.2 %; Body Fluid Total Cells Counted 0.501 10^3/ul; Red Cell Count/Body Fluid 0.009 10^6/ul; White Blood Count/Body Fluid 0.479 10^3/uL
[2023-07-23 11:30] LABS: Auto B Fluid Analyzer BKGD Ct COUNTS W/IN LIMITS (W/IN LIMITS); Source- Body Fluid THORACENTESIS
[2023-07-23 11:31] LABS: Appearance/Body Fluid SL CLDY; Color/Body Fluid YELLOW
[2023-07-23 11:58] LABS: Body Fluid QC Type(s) BF1Q; Lymphocytes 63 %; Mesothelial Cells 4 %; Monocytes 12 %; Neutrophil (Segs) 14 %; Other Cell Type/BF 7 %
--- NOTE | 2023-07-23 14:27 | PCM.PN.HOSP ---
Reason for Visit Reason for Visit: Diagnoses Unspecified diastolic (congestive) heart failure (07/21/23) Chronic diastolic (congestive) heart failure (07/21/23) Pleural effusion, not elsewhere classified (07/21/23) Other abnormalities of breathing (07/21/23) Objective Data Objective Data Vital Signs: Vital Signs Temp Pulse Resp BP Pulse Ox O2 Del Method O2 Flow Rate 97.6 F L 85 18 137/87 H 98 Nasal Cannula 2 07/23/23 10:05 07/23/23 10:08 07/23/23 10:05 07/23/23 10:08 07/23/23 13:33 07/23/23 13:33 07/23/23 13:38 Oxygen Flow Rate (L/min) 2 Oxygen Delivery Method Nasal Cannula Weight: 109 lb 9.116 oz Body Mass Index (BMI) 20.0 Intake & Output: Intake and Output for Last 24 Hours 07/21/23 07/22/23 07/23/23 23:59 23:59 23:59 Intake Total 420 / 420 640 / 640 Output Total 1150 / 1150 1600 / 1600 Balance -730 / -730 -960 / -960 Lab / Micro Data 07/23/23 05:35 07/23/23 05:35 Labs: Laboratory Results - last 24 hr 07/22/23 03:50: Lactate Dehydrogenase 227, Total Protein 5.7 L, Globulin 2.8, Albumin/Globulin Ratio 1.0 07/23/23 05:35: WBC 5.4, RBC 3.32 L, Hgb 10.5 L, Hct 32.5 L, MCV 97.9, MCH 31.6, MCHC 32.3, RDW Std Deviation 67.7 H, RDW Coeff of Zuleima 19.2 H, Plt Count 339, MPV 9.1, Immature Gran % (Auto) 0.400, Neut % (Auto) 58.4, Lymph % (Auto) 26.5, [place] % (Auto) 10.7 H, Eos % (Auto) 3.3, Baso % (Auto) 0.7, Absolute Neuts (auto) 3.2, Absolute Lymphs (auto) 1.43, Nucleated RBC % 0.6, Anisocytosis 2+, Sodium 133 L, Potassium 3.8, Chloride 98, Carbon Dioxide 28.0, Anion Gap 7, BUN 33 H, Creatinine 1.19 H, Estim Creat Clear Calc 25.15, Est GFR (MDRD) Af Amer 55 L, Est GFR (MDRD) Non-Af 45 L, BUN/Creatinine Ratio 27.7 H, Glucose 88, Calcium 8.8, Total Bilirubin 1.20 H, Direct Bilirubin 0.48 H, AST 34, ALT 23, Alkaline Phosphatase 54, Lactate Dehydrogenase 222, Total Protein 5.7 L, Albumin 2.9 L, Globulin 2.8 07/23/23 09:40: Fluid Source THORACENTESIS, Fluid Color YELLOW, Fluid Appearance SL CLDY, Fluid WBC 0.479, Fluid RBC 0.009, Fluid Tot Cell Count 0.501 H, Fld Polynuclear WBCs # 0.044, Fld Polynuclear WBCs % 9.2, Fluid Mononuclear WBCs 0.435, Fld Mononuclear WBCs % 90.8, Fluid Neutrophils 14, Fluid Lymphocytes 63, Fluid Monocytes 12, Fld Mesothelial Cells 4, Fluid Other Cells 7, Fl Pathologist Comment May follow, Fluid Glucose 102 H, Fluid Total Protein 2.3, Fluid LDH 74, Fluid Comment 2 SEE COMMENT Micro: Microbiology 07/23/23 09:40 Fluid - Thoracentesis Fluid Gram Stain - Final Rhythm Strip Rhythm Strip: A-fib Rate: 98 Ectopy: PVC(s) Physical Exam Narrative Patient had thoracocentesis today, 950 mL clear fluid was drained. No chest pain or pressure. Shortness of breath improved and patient feels better. She said she wants to go home. No chest pain Physical exam General: Alert, Oriented x3, Cooperative HEENT: Very hard of hearing atraumatic, PERRLA, EOMI, Normocephalic Oral: No Gingival or Mucosal Lesions/ Ulcerations Neck: Supple, No JVD, Negative Carotid Bruits Chest wall/Lungs: Air entry improved on the right posterior half lung after thoracocentesis. Left lung clear. Dyspnea on exertion resolved. Cardiovascular: Regular rate, Regular Rhythm, Normal S1, Normal S2, systolic murmur present. Abdomen: Bowel Sounds Present, Soft, Non Tender, Non-Distended : No dysuria. No renal angle tenderness. No suprapubic tenderness. Extremities: 2+ pitting bilateral ankle edema, Capillary Refill Less than 3 Seconds Skin: No rashes, No breakdown Musculoskeletal: No Tenderness to Palpation of Joints or Extremities. ROM restricted Neurological: Cranial nerves II-XII grossly intact, DTR 2+/4. No acute focal neurological deficit. Psych/Mental Status: Normal Affect, Appropriate. Assessment & Plan Assessment/Plan (1) (HFpEF) heart failure with preserved ejection fraction: QUALIFIERS: Heart failure chronicity: chronic Qualified Code(s): I50.32 - Chronic diastolic (congestive) heart failure (2) Pleural effusion on right: (3) Respiratory insufficiency: PLAN: Plan 1. Acute exacerbation of chronic diastolic CHF; with preserved LVEF evidenced by right pleural effusion with elevated BNP of 2,497.7 pg/mL present on admission - Admit to PCU. Continue IV Lasix plus supplemental potassium and magnesium. Chest x-ray reviewed and shows right moderate effusion worse than the previous 03/16/2023. He also has left lung base atelectasis. BNP does not show change. Repeat chest x-ray does not show change since yesterday therefore ultrasound-guided thoracocentesis with diagnostic labs ordered. Discussed with the blacksmith assistant, Dr. Fountain advised to treat with diuretic and if does not get better then let him know to see the patient.Patient on furosemide 40 mg IV twice daily. Heart failure core measures including intake and output, fluid restriction less than 1500 mL, daily weight monitoring, kidney and electrolytes monitoring. On metoprolol, Imdur, Jardiance and spironolactone 07/22: Patient had thoracocentesis manage 50 mill joleen-colored fluid drained. Repeat chest x-ray after procedure does not show pneumothorax. As per lights criteria, fluid analysis shows transudative due to CHF. Glucose 102. Total WBC count 479, polymorphs 44, mononuclear 435. Fluid culture pending. Gram stain 2+ WBC 4+ RBC no organisms seen. 2. Acute respiratory insufficiency with mild hypoxia:- Wean additional supplemental oxygen back to baseline levels as tolerated. 07/22: Patient is still on 2 L of oxygen but respiratory status and dyspnea has improved. Although patient wanted to go home but needs PT and OT evaluation therefore anticipate discharge tomorrow. 3. CAD; status post CABG (2009) and coronary artery stent (2011) - Stable. Continue home medications as previous plus serialize troponin. 4. PAF; rate controlled - Resume current management. 5. Essential hypertension - Continue home regimen plus give IV hydralazine as needed for systolic blood pressure greater than 160 mmHg. 6. Hyperlipidemia - Resume statin and check lipid profile. 7. History of ascending aortic aneurysm - Apparently stable. Echocardiogram pending for #1. 8. Peripheral vascular disease - Stable. 9. Chronic left carotid bruit - Noted. Check carotid Doppler to evaluate for possible significant stenosis. 10. History of nonrheumatic mitral valve regurgitation - Noted. Echocardiogram pending for #1. 11. History of basal cell carcinoma of scalp - Noted. 12. Depression - Resume current regimen plus give as needed Xanax for breakthrough symptoms. 13. Chronic insomnia - Stable. Give melatonin p.o. nightly as needed. 14. Glaucoma - Resume latanoprost eyedrops as previous. 15. GERD - Stable with patient currently not on antacid medication. 16. Osteoarthritis; with history of back surgery, total knee replacement and shoulder surgery - Give Tylenol as needed. 17. DVT prophylaxis -enoxaparin 30 mg subcu daily.. Charges/Coding Visit Charges Inpatient E&M: 82321 Subs Hosp L2
[2023-07-23] MEDS: Latanoprost 0.005% 1 Bottle 1 DRP EACH EYE (20:05)
[2023-07-24 02:58] VITALS: BP 118/66; PULSE 74; RESP 14; TEMP 36.1; O2SAT 100
[2023-07-24 06:00] VITALS: BMI 19.8
[2023-07-24 07:23] LABS: Absolute Lymphocyte Count 1.55 X10^3/uL (0.83-4.51); Absolute Neutrophil Count 3.4 X10^3/uL (2.0-7.7); Basophil# 0.04 X10^3/uL; Basophil% 0.7 % (0-1); Eosinophil# 0.27 X10^3/uL; Eosinophils% 4.6 % (0-5); Hematocrit 32.8 % (37-47); Hemoglobin 10.7 g/dL (12.0-15.0); Lymphocyte # 1.55 X10^3/ul (0.83-4.51); Lymphocyte % 26.7 % (19-41); Mean Corp Hgb Conc 32.6 g/dL (32-36); Mean Corpuscular Hgb 31.9 pg (27.0-32.0); Mean Corpuscular Volume 97.9 fL (81-99); Mean Platelet Vol. 9.2 fl (6.2-12.0); Monocyte# 0.55 X10^3/uL; Monocyte% 9.5 % (0-10); NRBC Flagged by Analyzer 0.3 % (0-5); Neutrophil # 3.37 X10^3/uL (2.7-7.7); POSITIVE MORPHOLOGY YES; Platelet Count 324 K/mm3 (150-450); RBC Distribution Width CV 19.5 % (11.6-14.6); RBC Distribution Width SD 69.9 fl (35.1-43.9); Red Blood Count 3.35 M/mm3 (4.2-5.4); White Blood Count 5.8 K/mm3 (4.4-11.0)
[2023-07-24 07:26] LABS: Differential Indicated SCAN CRITERIA MET
[2023-07-24 07:42] VITALS: O2SAT 98
[2023-07-24 07:56] LABS: Anisocytosis 1+; Differential Comment SCANNED
[2023-07-24 08:26] LABS: Anion Gap 5 (5-15); BUN 25 mg/dL (7-18); BUN/Creat Ratio 22.9 RATIO (10-20); Calcium,Total 8.5 mg/dL (8.5-10.1); Chloride 99 mmol/L (98-107); Creatinine, Serum 1.09 mg/dL (0.55-1.02); EST Glomerular Filtration Rate 50 mL/min (>60); Est Glom Filt Rate - Afr Amer 61 mL/min (>60); Estimated Creatinine Clearance 27.07 ml/min; Glucose 90 mg/dL (74-106); Potassium 3.7 mmol/L (3.5-5.1); Sodium Level 133 mmol/L (136-145)
[2023-07-24 08:58] VITALS: BP 121/59; PULSE 80; RESP 18; TEMP 36.4; O2SAT 100
--- NOTE | 2023-07-24 09:10 | DCINST_ITS ---
Discharge Instructions Diet Discharge Diet: 8 Cup Fluid Restriction and 2000 mg Sodium Diet Activity Discharge Activity: Return to Normal Activity Weight Bearing Status: Weight bearing as tolerated Dressing / Incision Call your doctor if you observe: Fever of 101 or Higher, Coldness, Increased Pain, Numbness or Tingling, Change in Color, Inability to urinate, Inability to have a bowel movement, Using more than 1 pad per hour, Shortness of breath, Dizziness, Fainting spells, Swelling in the ankles, Chest pain, Prolonged hiccupping, Increased palpitations (irregular heartbeat) and Calf discomfort Follow Up Care When: IN 2 WEEKS Test Results: Test results from this visit will be discussed in further detail at your follow- up appointment, if applicable. Discharge Plan Admission Admit Date/Time: 07/21/23 22:07 Primary Reason for Your Visit: Acute on chronic HFpEF, moderate right pleural effusion Attending Provider: Rajesh Sun Primary Care Provider: Rachel Bernabe Consulting Providers: Christian Valdez Instructions Patient Instructions: MARY RN Thoracentesis Dc Discharge Orders/Prescriptions Prescriptions: New Jardiance 10 mg Tablet 10 mg PO DAILY Qty: 30 2RF lisinopril 2.5 mg tablet 2.5 mg PO DINNER Qty: 30 0RF Rx Instructions: Hold for SBP less than 90 or K more than 5.1 Continued cholecalciferol (vitamin D3) 25 mcg (1,000 unit) tablet 25 mcg PO DAILY fish,bora,flax oils-om3,6,9no1 400-400-400 mg capsule 1 cap PO DAILY calcium carb-D3-mag [id number] [phone] ff-agca-[id number]-mg tablet 1 tab PO DAILY Rx Instructions: administer with a meal nitroglycerin 0.4 mg tablet, sublingual 0.4 mg SUBLINGUAL Q5M PRN (Reason: Chest Pain) Qty: 25 3RF paroxetine HCl 10 mg tablet 10 mg PO DAILY metoprolol tartrate 50 mg tablet 50 mg PO BID Rx Instructions: Hold for heart less than 50 or systolic blood pressure less than 100 mmHg. latanoprost 0.005 % drops 1 drp EACH EYE QPM furosemide 40 mg Tablet 40 mg PO BIDLX 30 Days Qty: 60 2RF Patient Comments: pt states she has been taking 2 tablets daily for several days Rx Instructions: Take extra 40 mg dose at 5 PM for increased leg swelling or weight gain 5 pounds in 1 week. Mucinex DM 30-600 mg Tablet Extended Release 12 Hr 2 tab PO BID 7 Days Qty: 28 0RF Mag 64 64 mg Tablet,Delayed Release (Dr/Ec) 128 mg PO BID 7 Days Qty: 28 0RF spironolactone 25 mg Tablet 25 mg PO DAILY 30 Days Qty: 30 2RF Rx Instructions: Hold if serum potassium is more than 5.0. isosorbide mononitrate 60 mg tablet extended release 24 hr 60 mg PO DAILY Qty: 90 3RF Discontinued turmeric 400 mg capsule 400 mg PO DAILY Referrals / Follow Up: Rachel Bernabe DO [Primary Care Provider] - Victorino Fountain MD [Med Staff - Active Staff] - Within 1 Month Disposition Disposition (needs filled in before D/C Order can be placed): Home Health Service
--- NOTE | 2023-07-24 09:49 | PCM.DC.SUM ---
Providers Date of Admission: 07/21/23 Date of Discharge: 07/24/23 Primary Care Physician: Dr. Rachel Bernabe DO Reason For Visit: ACUTE EXACERBATION OF CHRONIC \DIASTOLIC CHF Diagnosis Discharge Diagnosis (1) (HFpEF) heart failure with preserved ejection fraction: Status: Acute Code(s): I50.30 - Unspecified diastolic (congestive) heart failure Qualifiers: Heart failure chronicity: chronic Qualified Code(s): I50.32 - Chronic diastolic (congestive) heart failure (2) Pleural effusion on right: Status: Acute Code(s): J90 - Pleural effusion, not elsewhere classified (3) Respiratory insufficiency: Status: Acute Code(s): R06.89 - Other abnormalities of breathing Plan 1. Acute exacerbation of chronic diastolic CHF; with preserved LVEF evidenced by right pleural effusion with elevated BNP of 2,497.7 pg/mL present on admission - Admit to PCU. Continue IV Lasix plus supplemental potassium and magnesium. Chest x-ray reviewed and shows right moderate effusion worse than the previous 03/16/2023. He also has left lung base atelectasis. BNP does not show change. Repeat chest x-ray does not show change since yesterday therefore ultrasound-guided thoracocentesis with diagnostic labs ordered. Discussed with the gang plank workman, Dr. Fountain advised to treat with diuretic and if does not get better then let him know to see the patient.Patient on furosemide 40 mg IV twice daily. Heart failure core measures including intake and output, fluid restriction less than 1500 mL, daily weight monitoring, kidney and electrolytes monitoring. On metoprolol, Imdur, Jardiance and spironolactone 07/22: Patient had thoracocentesis manage 50 mill joleen-colored fluid drained. Repeat chest x-ray after procedure does not show pneumothorax. As per lights criteria, fluid analysis shows transudative due to CHF. Glucose 102. Total WBC count 479, polymorphs 44, mononuclear 435. Fluid culture pending. Gram stain 2+ WBC 4+ RBC no organisms seen. 07/23:Lungs: Lungs are clear. Patient discharged on home dose of furosemide 40 mg twice daily, is low-dose spironolactone. Low-dose lisinopril 2.5 mg daily started. Prescription given for lisinopril and empagliflozin. Follow-up in cardiology office Dr. Fountain in about 1 month. 2. Acute respiratory insufficiency with mild hypoxia:- Wean additional supplemental oxygen back to baseline levels as tolerated. 07/22: Patient is still on 2 L of oxygen but respiratory status and dyspnea has improved. Although patient wanted to go home but needs PT and OT evaluation therefore anticipate discharge tomorrow. 07/23: Home oxygen qualification test. 3. CAD; status post CABG (2009) and coronary artery stent (2011) - Stable. Continue home medications as previous plus serialize troponin. 4. PAF; rate controlled - Resume current management. 5. Essential hypertension - Continue home regimen plus give IV hydralazine as needed for systolic blood pressure greater than 160 mmHg. 6. Hyperlipidemia - Resume statin and check lipid profile. 7. History of ascending aortic aneurysm - Apparently stable. Echocardiogram pending for #1. 8. Peripheral vascular disease - Stable. 9. Chronic left carotid bruit - Noted. Check carotid Doppler to evaluate for possible significant stenosis. 10. History of nonrheumatic mitral valve regurgitation - Noted. Echocardiogram pending for #1. 11. History of basal cell carcinoma of scalp - Noted. 12. Depression - Resume current regimen plus give as needed Xanax for breakthrough symptoms. 13. Chronic insomnia - Stable. Give melatonin p.o. nightly as needed. 14. Glaucoma - Resume latanoprost eyedrops as previous. 15. GERD - Stable with patient currently not on antacid medication. 16. Osteoarthritis; with history of back surgery, total knee replacement and shoulder surgery - Give Tylenol as needed. 17. DVT prophylaxis -enoxaparin 30 mg subcu daily.. Medications at Discharge Home Medications calcium carb-vit [id number] 333 mg-200 unit-133 mg-5 mg tablet 1 tab PO DAILY SUPPLEMENT 05/22/20 cholecalciferol (vitamin D3) 25 mcg (1,000 unit) tablet 25 mcg PO DAILY SUPPLEMENT 05/22/20 fish, borage, flaxseed oils-omega 3,6,9 cb #1 400 mg-400 mg-400 mg cap 1 cap PO DAILY SUPPLEMENT 05/22/20 nitroglycerin 0.4 mg sublingual tablet 0.4 mg sublingual Q5M PRN Chest Pain #25 tabs 03/06/21 paroxetine HCl 10 mg tablet 10 mg PO DAILY MOOD 12/20/21 isosorbide mononitrate 60 mg tablet,extended release 24 hr 60 mg PO DAILY chest pain #90 tabs 11/15/22 latanoprost 0.005 % eye drops 1 drp EACH EYE QPM eye pressur 03/16/23 dextromethorphan-guaifenesin 30 mg-600 mg tablet extended hr (Mucinex DM) 2 tab PO BID 7 days #28 tabs 03/20/23 furosemide 40 mg tablet 40 mg PO BIDLX 30 days #60 tabs 03/20/23 magnesium chloride 64 mg (magnesium chloride) tablet,delayed release (Mag 64) 128 mg (2 x 64 mg) PO BID 7 days #28 tabs 03/20/23 spironolactone 25 mg tablet 25 mg PO DAILY 30 days #30 tabs 03/20/23 metoprolol tartrate 50 mg tablet 50 mg PO BID blood pressure 04/16/23 empagliflozin 10 mg tablet (Jardiance) 10 mg PO DAILY #30 tabs 07/24/23 lisinopril 2.5 mg tablet 2.5 mg PO DINNER #30 tabs 07/24/23 Physical Exam Narrative Patient had thoracocentesis on 07/22/2021 for 950 mL clear fluid was drained. No chest pain or pressure. Shortness of breath is much improved. Patient still on 2 L of oxygen. No chest pain Physical exam General: Alert, Oriented x3, Cooperative HEENT: Very hard of hearing atraumatic, PERRLA, EOMI, Normocephalic Oral: No Gingival or Mucosal Lesions/ Ulcerations Neck: Supple, No JVD, Negative Carotid Bruits Chest wall/Lungs: Air entry improved on the right posterior half lung after thoracocentesis. Left lung clear. Dyspnea on exertion resolved. Cardiovascular: Regular rate, Regular Rhythm, Normal S1, Normal S2, systolic murmur present. Abdomen: Bowel Sounds Present, Soft, Non Tender, Non-Distended : No dysuria. No renal angle tenderness. No suprapubic tenderness. Extremities: 2+ pitting bilateral ankle edema, Capillary Refill Less than 3 Seconds Skin: No rashes, No breakdown Musculoskeletal: No Tenderness to Palpation of Joints or Extremities. ROM restricted Neurological: Cranial nerves II-XII grossly intact, DTR 2+/4. No acute focal neurological deficit. Psych/Mental Status: Normal Affect, Appropriate. Weight / BMI Weight Weight: 108 lb 0.424 oz Body Mass Index (BMI) 19.8 ABG / Lab / Microbiology Data 07/24/23 06:45 07/24/23 06:45 Laboratory: Laboratory Results - last 24 hr 07/23/23 09:40: Fluid Source THORACENTESIS, Fluid Color YELLOW, Fluid Appearance SL CLDY, Fluid WBC 0.479, Fluid RBC 0.009, Fluid Tot Cell Count 0.501 H, Fld Polynuclear WBCs # 0.044, Fld Polynuclear WBCs % 9.2, Fluid Mononuclear WBCs 0.435, Fld Mononuclear WBCs % 90.8, Fluid Neutrophils 14, Fluid Lymphocytes 63, Fluid Monocytes 12, Fld Mesothelial Cells 4, Fluid Other Cells 7, Fl Pathologist Comment May follow, Fluid Glucose 102 H, Fluid Total Protein 2.3, Fluid LDH 74, Fluid Comment 2 SEE COMMENT 07/24/23 06:45: WBC 5.8, RBC 3.35 L, Hgb 10.7 L, Hct 32.8 L, MCV 97.9, MCH 31.9, MCHC 32.6, RDW Std Deviation 69.9 H, RDW Coeff of Zuleima 19.5 H, Plt Count 324, MPV 9.2, Immature Gran % (Auto) 0.500, Neut % (Auto) 58.0, Lymph % (Auto) 26.7, Harlan % (Auto) 9.5, Eos % (Auto) 4.6, Baso % (Auto) 0.7, Absolute Neuts (auto) 3.4, Absolute Lymphs (auto) 1.55, Nucleated RBC % 0.3, Differential Comment SCANNED, Anisocytosis 1+, Sodium 133 L, Potassium 3.7, Chloride 99, Carbon Dioxide 29.0, Anion Gap 5, BUN 25 H, Creatinine 1.09 H, Estim Creat Clear Calc 27.07, Est GFR (MDRD) Af Amer 61, Est GFR (MDRD) Non-Af 50 L, BUN/Creatinine Ratio 22.9 H, Glucose 90, Calcium 8.5 Microbiology: Microbiology 07/23/23 09:40 Fluid - Thoracentesis Fluid Gram Stain - Final Radiography Diagnostic Testing: Radiology Impression Chest X-Ray 07/23/23 09:48 IMPRESSION: Status post right thoracentesis. No evidence of pneumothorax. Mild residual pleural-parenchymal changes at the right lung base. Electronically Signed: Mariusz Alarcon MD at 10:16 EDT , D/C Instructions Discharge Diet: 8 Cup Fluid Restriction and 2000 mg Sodium Diet Weight Bearing Status: Weight bearing as tolerated Call your doctor if you observe: Fever of 101 or Higher, Coldness, Increased Pain, Numbness or Tingling, Change in Color, Inability to urinate, Inability to have a bowel movement, Using more than 1 pad per hour, Shortness of breath, Dizziness, Fainting spells, Swelling in the ankles, Chest pain, Prolonged hiccupping, Increased palpitations (irregular heartbeat) and Calf discomfort When: IN 2 WEEKS Meaningful Use Info Meaningful Use Diagnoses (Choose all that apply): None applicable Discharge Plan Admission Admit Date/Time: 07/21/23 22:07 Primary Reason for Your Visit: Acute on chronic HFpEF, moderate right pleural effusion Attending Provider: Rajesh Sun Primary Care Provider: Rachel Bernabe Consulting Providers: Christian Valdez Instructions Patient Instructions: MARY BARBOSA Thoracentesis Dc Discharge Orders/Prescriptions Prescriptions: New Jardiance 10 mg Tablet 10 mg PO DAILY Qty: 30 2RF lisinopril 2.5 mg tablet 2.5 mg PO DINNER Qty: 30 0RF Rx Instructions: Hold for SBP less than 90 or K more than 5.1 Continued cholecalciferol (vitamin D3) 25 mcg (1,000 unit) tablet 25 mcg PO DAILY fish,bora,flax oils-om3,6,9no1 400-400-400 mg capsule 1 cap PO DAILY calcium carb-D3-mag [id number] 354-146-111-5 qg-cudk-tl-mg tablet 1 tab PO DAILY Rx Instructions: administer with a meal nitroglycerin 0.4 mg tablet, sublingual 0.4 mg SUBLINGUAL Q5M PRN (Reason: Chest Pain) Qty: 25 3RF paroxetine HCl 10 mg tablet 10 mg PO DAILY metoprolol tartrate 50 mg tablet 50 mg PO BID Rx Instructions: Hold for heart less than 50 or systolic blood pressure less than 100 mmHg. latanoprost 0.005 % drops 1 drp EACH EYE QPM furosemide 40 mg Tablet 40 mg PO BIDLX 30 Days Qty: 60 2RF Patient Comments: pt states she has been taking 2 tablets daily for several days Rx Instructions: Take extra 40 mg dose at 5 PM for increased leg swelling or weight gain 5 pounds in 1 week. Mucinex DM 30-600 mg Tablet Extended Release 12 Hr 2 tab PO BID 7 Days Qty: 28 0RF Mag 64 64 mg Tablet,Delayed Release (Dr/Ec) 128 mg PO BID 7 Days Qty: 28 0RF spironolactone 25 mg Tablet 25 mg PO DAILY 30 Days Qty: 30 2RF Rx Instructions: Hold if serum potassium is more than 5.0. isosorbide mononitrate 60 mg tablet extended release 24 hr 60 mg PO DAILY Qty: 90 3RF Discontinued turmeric 400 mg capsule 400 mg PO DAILY Referrals / Follow Up: Rachel Bernabe DO [Primary Care Provider] - Victorino Fountain MD [Med Staff - Active Staff] - Within 1 Month Disposition Disposition (needs filled in before D/C Order can be placed): Home Health Service Charges/Coding Visit Charges Inpatient E&M: 58622 Disch Hosp >30min
[2023-07-24] MEDS: Enoxaparin 30 MG/0.3 ML Syringe SC (09:57)
[2023-07-24 09:58] VITALS: BP 121/59; PULSE 80
[2023-07-24] MEDS: Magnesium Chloride 64 MG Delay Rel.Tablet 128 MG PO (09:58)
[2023-07-24] MEDS: Isosorbide Mononitrate 60 MG Tablet PO (09:58)
[2023-07-24] MEDS: Spironolactone 25 MG Tablet PO (09:58)
[2023-07-24] MEDS: Cholecalciferol (VIT D3) 25 MCG TABLET (1,000 UNITS) PO (09:58)
[2023-07-24] MEDS: Metoprolol Tartrate 50 MG Tablet PO (09:58)
[2023-07-24] MEDS: PARoxetine 10 MG Tablet PO (09:58)
[2023-07-24] MEDS: guaiFENesin/D-Methorphan TAB.SR.12H 2 TABLET PO (09:58)
[2023-07-24] MEDS: Furosemide 40 MG/4 ML Vial IV (09:59)
[2023-07-24] MEDS: 0.9% Saline Lock 10 ML Syringe IV (10:00)
[2023-07-24] MEDS: Empagliflozin 10 MG Tablet PO (10:02)
[2023-07-24 10:09] VITALS: BP 121/59; PULSE 80; RESP 18; TEMP 36.4; O2SAT 100
[2023-07-24 10:16] VITALS: O2SAT 100; O2SAT 88; O2SAT 95
--- NOTE | 2023-07-24 10:34 | CASEMGMT ---
Addendum entered by Talita Gutierrez 07/24/23 12:00: FAMILIA TINSLEY received call from [facility] and they are able to accept the patient with planned start of care for tomorrow. FAMILIA TINSLEY updated discharge plan. RN ALVINA called and left message updated daughter regarding [facility] acceptance and start of care. Original Note: Patient has order for discharge today. Patient ambulated SBA with therapy. FAMILIA TINSLEY in to discuss needs at discharge. FAMILIA TINSLEY discussed HHC, patient is agreeable. A list of [facility] providers including quality and resource use data and consistent with the patient?s preferred geographical region, medical needs, and insurance network were provided from the [employer] Guide. Patient asked FAMILIA TINSLEY to call daughter Tomeka. FAMILIA TINSLEY called daughter and her preferences are [facility] or [facility]. Daughter had no further questions or concerns. FAMILIA TINSLEY called [facility] with referral, awaiting call back.
--- NOTE | 2023-07-24 11:40 | PHA.DC_ITS ---
Pharmacy [facility] has performed discharge medication reconciliation and counseling for this patient. 1. EMPAGLIFLOZIN 10MG PO DAILY 2. LISINOPRIL 2.5MG PO DINNER The patient's discharge medication list was reviewed for discrepancies and discrepancies were resolved. The patient was counseled on the following discharge medications and changes in medications for homegoing were reviewed. The Reason for Use, instructions for use, and potential side effects were reviewed for all new medications. The patient's questions regarding all of their medications were answered. The patient was able to verbally demonstrate an understanding of their discharge medications. Medications at Discharge Home Medications calcium carb-vit Z1-evvxfctzu-xkdb 333 mg-200 unit-133 mg-5 mg tablet 1 tab PO DAILY SUPPLEMENT 05/22/20 cholecalciferol (vitamin D3) 25 mcg (1,000 unit) tablet 25 mcg PO DAILY SUPPLEMENT 05/22/20 fish, borage, flaxseed oils-omega 3,6,9 cb #1 400 mg-400 mg-400 mg cap 1 cap PO DAILY SUPPLEMENT 05/22/20 nitroglycerin 0.4 mg sublingual tablet 0.4 mg sublingual Q5M PRN Chest Pain #25 tabs 03/06/21 paroxetine HCl 10 mg tablet 10 mg PO DAILY MOOD 12/20/21 isosorbide mononitrate 60 mg tablet,extended release 24 hr 60 mg PO DAILY chest pain #90 tabs 11/15/22 latanoprost 0.005 % eye drops 1 drp EACH EYE QPM eye pressur 03/16/23 dextromethorphan-guaifenesin 30 mg-600 mg tablet extended [id number] hr (Mucinex DM) 2 tab PO BID 7 days #28 tabs 03/20/23 furosemide 40 mg tablet 40 mg PO BIDLX 30 days #60 tabs 03/20/23 magnesium chloride 64 mg (magnesium chloride) tablet,delayed release (Mag 64) 128 mg (2 x 64 mg) PO BID 7 days #28 tabs 03/20/23 spironolactone 25 mg tablet 25 mg PO DAILY 30 days #30 tabs 03/20/23 metoprolol tartrate 50 mg tablet 50 mg PO BID blood pressure 04/16/23 empagliflozin 10 mg tablet (Jardiance) 10 mg PO DAILY #30 tabs 07/24/23 lisinopril 2.5 mg tablet 2.5 mg PO DINNER #30 tabs 07/24/23
[2023-07-24 16:09] LABS: pH, Body Fluid 11254 7.4 (Not Estab.)
[2023-07-25 08:19] LABS: Pathologist Comment/Body Fluid Reviewed
== END 2023-07-24 13:26 | disposition home health service (06) | DRG 291 ==
LOC: ED 22:08 → PCU 22:20
PROVIDERS: Admitting Provider Internal Medicine; Emergency Provider Emergency Medicine; PCP Family Medicine; Visit Provider Internal Medicine
DX: I11.0 Hypertensive heart disease with heart failure (principal); I50.33 Acute on chronic diastolic (congestive) heart failure; J90 Pleural effusion, not elsewhere classified; I48.20 Chronic atrial fibrillation, unspecified; J98.11 Atelectasis; I73.9 Peripheral vascular disease, unspecified; D64.9 Anemia, unspecified; F32.A Depression, unspecified; E78.5 Hyperlipidemia, unspecified; K21.9 Gastro-esophageal reflux disease without esophagitis; I25.10 Atherosclerotic heart disease of native coronary artery without angina pectoris; R09.02 Hypoxemia; H40.9 Unspecified glaucoma; N28.9 Disorder of kidney and ureter, unspecified; Z95.5 Presence of coronary angioplasty implant and graft; Z95.1 Presence of aortocoronary bypass graft; R06.89 Other abnormalities of breathing; Z82.49 Family history of ischemic heart disease and other diseases of the circulatory system
CPT/HCPCS: 32555; 36415; 71045; 71046; 80048; 80061; 80076; 82945; 83615; 83880; 83986; 84156; 84157; 84484; 85025; 87070; 87075; 87205; 88108; 88305; 88313; 89050; 93005; 93306; 97162; 97166; 97802; 99285; A4216; J1940; J2405

== ENCOUNTER → 2023-07-31 | Outpatient (CLI) | payer MEDICARE, SELFPAY ==
[2023-07-31 18:08] LABS: Absolute Lymphocyte Count 2.02 X10^3/uL (0.83-4.51); Absolute Neutrophil Count 3.5 X10^3/uL (2.0-7.7); Basophil# 0.06 X10^3/uL; Basophil% 0.9 % (0-1); Eosinophil# 0.16 X10^3/uL; Eosinophils% 2.5 % (0-5); Hematocrit 35.2 % (37-47); Hemoglobin 11.2 g/dL (12.0-15.0); Lymphocyte # 2.02 X10^3/ul (0.83-4.51); Lymphocyte % 30.9 % (19-41); Mean Corp Hgb Conc 31.8 g/dL (32-36); Mean Corpuscular Hgb 31.2 pg (27.0-32.0); Mean Corpuscular Volume 98.1 fL (81-99); Mean Platelet Vol. 9.8 fl (6.2-12.0); Monocyte# 0.78 X10^3/uL; Monocyte% 11.9 % (0-10); NRBC Flagged by Analyzer 0 % (0-5); Neutrophil % 53.6 % (47-70); POSITIVE MORPHOLOGY YES; Platelet Count 243 K/mm3 (150-450); RBC Distribution Width SD 68.5 fl (35.1-43.9); Red Blood Count 3.59 M/mm3 (4.2-5.4); White Blood Count 6.5 K/mm3 (4.4-11.0)
[2023-07-31 18:18] LABS: Differential Indicated SCAN CRITERIA MET
[2023-07-31 18:46] LABS: Anisocytosis 1+; Crenated RBC 1+; Differential Comment SCANNED
[2023-07-31 19:27] LABS: AST(SGOT) 27 U/L (15-37); Alanine Aminotransfer ALT/SGPT 21 U/L (13-56); Albumin, Serum 3.4 g/dL (3.2-5.0); Alkaline Phosphatase 64 U/L (45-117); Anion Gap 7 (5-15); BUN 26 mg/dL (7-18); BUN/Creat Ratio 23.6 RATIO (10-20); Calcium,Total 9.3 mg/dL (8.5-10.1); Chloride 98 mmol/L (98-107); EST Glomerular Filtration Rate 50 mL/min (>60); Est Glom Filt Rate - Afr Amer 60 mL/min (>60); Globulin 3.5 g/dL (2.2-4.2); Glucose 116 mg/dL (74-106); Potassium 3.7 mmol/L (3.5-5.1); Protein, Total 6.9 g/dL (6.4-8.2); Sodium Level 135 mmol/L (136-145)
== END | disposition home or self-care (01) ==
LOC: MTLAB 16:50
PROVIDERS: PCP Family Medicine; Referring Provider Family Medicine; Visit Provider Family Medicine
DX: Z51.81 Encounter for therapeutic drug level monitoring (principal); I50.33 Acute on chronic diastolic (congestive) heart failure; I27.20 Pulmonary hypertension, unspecified; D64.9 Anemia, unspecified
CPT/HCPCS: 36415; 80053; 83880; 85025

== ENCOUNTER 2024-02-11 10:54 | Inpatient (IN) | payer MEDICARE, SELFPAY ==
[2024-02-11] VITALS (7 sets, daily range): BP systolic 98–129; BP diastolic 44–59; PULSE 69–109; RESP 14–18; TEMP 36–36.6; O2SAT 85–100; BMI 19.5; BMI 15.3
[2024-02-11] MEDS: Ondansetron 4 MG/2 ML Vial IV (13:46)
[2024-02-11] MEDS: Morphine 4 MG/ML Syringe IV ×2 (13:46→14:54)
[2024-02-11 13:59] LABS: Absolute Lymphocyte Count 0.96 X10^3/uL (0.83-4.51); Absolute Neutrophil Count 15.3 X10^3/uL (2.0-7.7); Basophil# 0.04 X10^3/uL; Basophil% 0.2 % (0-1); Hematocrit 28.9 % (37-47); Hemoglobin 9.8 g/dL (12.0-15.0); Lymphocyte # 0.96 X10^3/ul (0.83-4.51); Lymphocyte % 5.5 % (19-41); Mean Corp Hgb Conc 33.9 g/dL (32-36); Mean Corpuscular Volume 100.3 fL (81-99); Mean Platelet Vol. 9.7 fl (6.2-12.0); Monocyte# 1.07 X10^3/uL; Monocyte% 6.1 % (0-10); NRBC Flagged by Analyzer 0.5 % (0-5); Neutrophil # 15.28 X10^3/uL (2.7-7.7); Neutrophil % 87.3 % (47-70); Platelet Count 312 K/mm3 (150-450); RBC Distribution Width CV 16.3 % (11.6-14.6); RBC Distribution Width SD 59.9 fl (35.1-43.9); Red Blood Count 2.88 M/mm3 (4.2-5.4); White Blood Count 17.5 K/mm3 (4.4-11.0)
[2024-02-11 14:04] LABS: Bacteria 0 SEEN /hpf (None Seen); Mucous, Urine 0 SEEN /hpf (<or=2+); Red Blood Cells-Urine 0 SEEN /hpf (0-5); Squamous Epithelial Cells - UA 0 SEEN /hpf (5-10); White Blood Cells 0 SEEN /hpf (0-5)
[2024-02-11 14:10] LABS: Color, Urine Yellow (Yellow); Glucose, Dipstick 1000 mg/dl (Normal); Ketone-Dipstick Negative (Negative); Leukocyte Esterase-Dipstick Negative /ul (Negative); Nitrite-Dipstick Negative (Negative); Occult Blood-Urine 25 /ul (Negative); Protein-Dipstick 15 mg/dl (Negative); Urine Bilirubin Dipstick Negative (Negative); Urine Clarity Sl. Cloudy (Clear); Urine Urobilinogen Normal (Normal); Urine pH 6.5 (5.0 - 8.0)
[2024-02-11 14:16] LABS: International Normalized Ratio 1.1; Partial Thromboplast Time 25.9 Seconds (24.1-36.2); Prothrombin Time (Protime)PT. 13.8 SECONDS (11.7-14.9)
[2024-02-11 14:27] LABS: ALB/GLOB Ratio 1.1 RATIO (0.9-2.4); AST(SGOT) 25 U/L (15-37); Alanine Aminotransfer ALT/SGPT 24 U/L (13-56); Albumin, Serum 3.1 g/dL (3.2-5.0); Alkaline Phosphatase 43 U/L (45-117); Anion Gap 7 (5-15); BUN 54 mg/dL (7-18); Calcium,Total 8.9 mg/dL (8.5-10.1); Chloride 95 mmol/L (98-107); Creatinine, Serum 1.42 mg/dL (0.55-1.02); EST Glomerular Filtration Rate 37 mL/min (>60); Est Glom Filt Rate - Afr Amer 45 mL/min (>60); Estimated Creatinine Clearance 20.48 ml/min; Globulin 2.7 g/dL (2.2-4.2); Glucose 119 mg/dL (74-106); Potassium 5.1 mmol/L (3.5-5.1); Protein, Total 5.8 g/dL (6.4-8.2); Sodium Level 128 mmol/L (136-145)
[2024-02-11 18:31] LABS: ALB/GLOB Ratio 1.1 RATIO (0.9-2.4); AST(SGOT) 31 U/L (15-37); Alanine Aminotransfer ALT/SGPT 23 U/L (13-56); Albumin, Serum 3.3 g/dL (3.2-5.0); Alkaline Phosphatase 45 U/L (45-117); Anion Gap 5 (5-15); BUN 55 mg/dL (7-18); BUN/Creat Ratio 38.2 RATIO (10-20); Calcium,Total 9.3 mg/dL (8.5-10.1); Chloride 96 mmol/L (98-107); Creatinine, Serum 1.44 mg/dL (0.55-1.02); EST Glomerular Filtration Rate 36 mL/min (>60); Est Glom Filt Rate - Afr Amer 44 mL/min (>60); Estimated Creatinine Clearance 15.89 ml/min; Glucose 115 mg/dL (74-106); Potassium 5.3 mmol/L (3.5-5.1); Protein, Total 6.3 g/dL (6.4-8.2); Sodium Level 127 mmol/L (136-145)
[2024-02-11 18:32] LABS: Vitamin D,25 Hydroxy 29.9 ng/mL
[2024-02-11] MEDS: Acetaminophen 500 MG Tablet 1000 MG PO (21:25)
[2024-02-11] MEDS: Latanoprost 0.005% 1 Bottle 1 DRP EACH EYE (21:25)
[2024-02-11] MEDS: guaiFENesin/D-Methorphan TAB.SR.12H 2 TABLET PO (21:28)
[2024-02-12] VITALS (9 sets, daily range): BP systolic 91–114; BP diastolic 44–59; PULSE 90–107; RESP 13–18; TEMP 36.3–36.6; O2SAT 96–100; BMI 15.3
[2024-02-12] MEDS: Acetaminophen 500 MG Tablet 1000 MG PO ×3 (05:42→20:29)
[2024-02-12 07:18] LABS: Absolute Lymphocyte Count 1.32 X10^3/uL (0.83-4.51); Absolute Neutrophil Count 7.3 X10^3/uL (2.0-7.7); Basophil# 0.04 X10^3/uL; Basophil% 0.4 % (0-1); Eosinophil# 0.01 X10^3/uL; Eosinophils% 0.1 % (0-5); Hematocrit 28.9 % (37-47); Hemoglobin 9.7 g/dL (12.0-15.0); Lymphocyte # 1.32 X10^3/ul (0.83-4.51); Lymphocyte % 13.5 % (19-41); Mean Corp Hgb Conc 33.6 g/dL (32-36); Mean Corpuscular Hgb 33.7 pg (27.0-32.0); Mean Corpuscular Volume 100.3 fL (81-99); Mean Platelet Vol. 9.9 fl (6.2-12.0); Monocyte# 1.06 X10^3/uL; Monocyte% 10.8 % (0-10); NRBC Flagged by Analyzer 0.9 % (0-5); Neutrophil # 7.28 X10^3/uL (2.7-7.7); Neutrophil % 74.2 % (47-70); Platelet Count 291 K/mm3 (150-450); RBC Distribution Width CV 16.3 % (11.6-14.6); RBC Distribution Width SD 59.8 fl (35.1-43.9); Red Blood Count 2.88 M/mm3 (4.2-5.4); White Blood Count 9.8 K/mm3 (4.4-11.0)
[2024-02-12 07:49] LABS: Anion Gap 7 (5-15); BUN 53 mg/dL (7-18); BUN/Creat Ratio 32.9 RATIO (10-20); Calcium,Total 8.8 mg/dL (8.5-10.1); Chloride 96 mmol/L (98-107); Creatinine, Serum 1.61 mg/dL (0.55-1.02); EST Glomerular Filtration Rate 32 mL/min (>60); Est Glom Filt Rate - Afr Amer 39 mL/min (>60); Estimated Creatinine Clearance 14.21 ml/min; Glucose 140 mg/dL (74-106); Potassium 5.6 mmol/L (3.5-5.1); Sodium Level 127 mmol/L (136-145)
[2024-02-12] MEDS: 0.9% Normal Saline (1000mL) 1,000 ML 125 ML IV ×2 (11:42→20:38)
[2024-02-12] MEDS: Morphine 2 MG/ML Syringe IV (11:45)
[2024-02-12] MEDS: Sodium Polystyrene Sulfonate 15 GM/60 ML UDC 30 GM PO ×2 (11:46→18:33)
[2024-02-12] MEDS: Calcium Gluconate 1 GM/10 ML Vial IVP (11:51)
[2024-02-12] MEDS: Hydrocortisone Sod Succinate 100 MG/2 ML Vial 50 MG IV ×2 (12:38→17:51)
[2024-02-12 14:13] LABS: Anion Gap 9 (5-15); BUN 51 mg/dL (7-18); BUN/Creat Ratio 35.2 RATIO (10-20); Calcium,Total 9.6 mg/dL (8.5-10.1); Chloride 98 mmol/L (98-107); Creatinine, Serum 1.45 mg/dL (0.55-1.02); EST Glomerular Filtration Rate 36 mL/min (>60); Est Glom Filt Rate - Afr Amer 44 mL/min (>60); Estimated Creatinine Clearance 15.78 ml/min; Glucose 159 mg/dL (74-106); Potassium 5.5 mmol/L (3.5-5.1); Sodium Level 130 mmol/L (136-145)
[2024-02-12] MEDS: 0.9% Saline Lock 10 ML Syringe IV (17:51)
[2024-02-12] MEDS: Ensure Plus High Protein 120 ML LIQUID PO ×2 (17:53→20:33)
[2024-02-12] MEDS: oxyCODONE 5 MG Tablet PO (20:28)
[2024-02-12] MEDS: Senna/Docusate Sodium 1 Tablet 2 TABLET PO (20:28)
[2024-02-12] MEDS: guaiFENesin/D-Methorphan TAB.SR.12H 2 TABLET PO (20:29)
[2024-02-12] MEDS: Latanoprost 0.005% 1 Bottle 1 DRP EACH EYE (20:34)
[2024-02-13] VITALS (16 sets, daily range): BP systolic 80–155; BP diastolic 40–90; PULSE 71–147; RESP 14–18; TEMP 35.9–36.8; O2SAT 96–100; BMI 15.3
[2024-02-13] MEDS: Hydrocortisone Sod Succinate 100 MG/2 ML Vial 50 MG IV ×3 (00:11→21:57)
[2024-02-13] MEDS: Acetaminophen 500 MG Tablet 1000 MG PO ×2 (05:17→21:53)
[2024-02-13 05:54] LABS: Absolute Lymphocyte Count 0.68 X10^3/uL (0.83-4.51); Hematocrit 25.2 % (37-47); Hemoglobin 8.3 g/dL (12.0-15.0); Lymphocyte # 0.68 X10^3/ul (0.83-4.51); Lymphocyte % 8.1 % (19-41); Mean Corp Hgb Conc 32.9 g/dL (32-36); Mean Corpuscular Hgb 33.6 pg (27.0-32.0); Mean Platelet Vol. 9.7 fl (6.2-12.0); Monocyte# 0.61 X10^3/uL; Monocyte% 7.3 % (0-10); NRBC Flagged by Analyzer 0.4 % (0-5); Neutrophil # 7.02 X10^3/uL (2.7-7.7); Neutrophil % 83.8 % (47-70); Platelet Count 212 K/mm3 (150-450); RBC Distribution Width CV 16.4 % (11.6-14.6); RBC Distribution Width SD 61.6 fl (35.1-43.9); Red Blood Count 2.47 M/mm3 (4.2-5.4); White Blood Count 8.4 K/mm3 (4.4-11.0)
[2024-02-13 06:28] LABS: Anion Gap 8 (5-15); BUN 40 mg/dL (7-18); BUN/Creat Ratio 34.5 RATIO (10-20); Calcium,Total 8.2 mg/dL (8.5-10.1); Chloride 104 mmol/L (98-107); Creatinine, Serum 1.16 mg/dL (0.55-1.02); EST Glomerular Filtration Rate 47 mL/min (>60); Est Glom Filt Rate - Afr Amer 57 mL/min (>60); Estimated Creatinine Clearance 19.73 ml/min; Glucose 156 mg/dL (74-106); Potassium 3.6 mmol/L (3.5-5.1); Sodium Level 136 mmol/L (136-145)
[2024-02-13] MEDS: Lactated Ringers 1,000 ML 15 ML IV (15:39)
[2024-02-13] MEDS: Cefazolin 2 GM in Syringe IV (17:38)
[2024-02-13] MEDS: Bupiv/Epi 0.25% 30 ML Vial (18:25)
[2024-02-13] MEDS: Metoprolol Tartrate 50 MG Tablet PO (21:51)
[2024-02-13] MEDS: Senna/Docusate Sodium 1 Tablet 2 TABLET PO (21:52)
[2024-02-13] MEDS: guaiFENesin/D-Methorphan TAB.SR.12H 2 TABLET PO (21:52)
[2024-02-13] MEDS: Latanoprost 0.005% 1 Bottle 1 DRP EACH EYE (21:58)
[2024-02-14] VITALS (16 sets, daily range): BP systolic 80–126; BP diastolic 37–77; PULSE 70–128; RESP 14–18; TEMP 36.2–36.6; O2SAT 92–100; BMI 15.3
[2024-02-14] MEDS: 0.9% Normal Saline (500mL Bag) 500 ML 999 ML IV (00:24)
[2024-02-14] MEDS: Cefazolin 1 GM/50 ML BAG IV ×3 (01:36→16:59)
[2024-02-14] MEDS: Acetaminophen 500 MG Tablet 1000 MG PO ×3 (06:13→21:22)
[2024-02-14 06:49] LABS: Absolute Lymphocyte Count 1.14 X10^3/uL (0.83-4.51); Absolute Neutrophil Count 8.4 X10^3/uL (2.0-7.7); Basophil# 0.01 X10^3/uL; Basophil% 0.1 % (0-1); Hematocrit 19.8 % (37-47); Hemoglobin 6.5 g/dL (12.0-15.0); Lymphocyte # 1.14 X10^3/ul (0.83-4.51); Mean Corp Hgb Conc 32.8 g/dL (32-36); Mean Corpuscular Hgb 33.7 pg (27.0-32.0); Mean Corpuscular Volume 102.6 fL (81-99); Monocyte# 0.78 X10^3/uL; Monocyte% 7.5 % (0-10); NRBC Flagged by Analyzer 0.4 % (0-5); Neutrophil # 8.39 X10^3/uL (2.7-7.7); Neutrophil % 80.7 % (47-70); Platelet Count 198 K/mm3 (150-450); RBC Distribution Width CV 16.5 % (11.6-14.6); RBC Distribution Width SD 62.2 fl (35.1-43.9); Red Blood Count 1.93 M/mm3 (4.2-5.4); White Blood Count 10.4 K/mm3 (4.4-11.0)
[2024-02-14 07:18] LABS: Anion Gap 6 (5-15); BUN 32 mg/dL (7-18); BUN/Creat Ratio 32.1 RATIO (10-20); Calcium,Total 8.3 mg/dL (8.5-10.1); Chloride 106 mmol/L (98-107); EST Glomerular Filtration Rate 56 mL/min (>60); Est Glom Filt Rate - Afr Amer 67 mL/min (>60); Estimated Creatinine Clearance 22.89 ml/min; Glucose 144 mg/dL (74-106); Potassium 2.8 mmol/L (3.5-5.1); Sodium Level 138 mmol/L (136-145)
[2024-02-14] MEDS: 0.9% Normal Saline (1000mL) 1,000 ML 125 ML IV ×2 (07:50→15:22)
[2024-02-14] MEDS: Potassium Chloride Oral Tablet 20 MEQ 60 MEQ PO (08:01)
[2024-02-14] MEDS: Ensure Plus High Protein 120 ML LIQUID PO ×4 (08:09→21:22)
[2024-02-14] MEDS: Senna/Docusate Sodium 1 Tablet 2 TABLET PO ×2 (08:27→21:22)
[2024-02-14] MEDS: guaiFENesin/D-Methorphan TAB.SR.12H 2 TABLET PO ×2 (08:27→21:21)
[2024-02-14] MEDS: PARoxetine 10 MG Tablet PO (08:27)
[2024-02-14] MEDS: Calcium Carbonate 500 MG Tablet PO ×3 (08:28→17:00)
[2024-02-14] MEDS: Empagliflozin 10 MG Tablet PO (08:29)
[2024-02-14] MEDS: Hydrocortisone Sod Succinate 100 MG/2 ML Vial 50 MG IV ×3 (08:36→17:00)
[2024-02-14] MEDS: Potassium Chloride 10mEq/100mL 10 MEQ/100 ML IV.SOLN. 100 MEQ IV BOLUS ×4 (08:36→14:16)
[2024-02-14] MEDS: Ondansetron 4 MG/2 ML Vial IV (10:22)
[2024-02-14] MEDS: Enoxaparin 30 MG/0.3 ML Syringe SC (17:00)
[2024-02-14] MEDS: Latanoprost 0.005% 1 Bottle 1 DRP EACH EYE (21:23)
[2024-02-15] VITALS (8 sets, daily range): BP systolic 97–119; BP diastolic 75–92; PULSE 83–145; RESP 16–18; TEMP 35.9–36.6; O2SAT 96–99; BMI 15.3
[2024-02-15] MEDS: Hydrocortisone Sod Succinate 100 MG/2 ML Vial 50 MG IV ×4 (00:45→20:41)
[2024-02-15] MEDS: 0.9% Saline Lock 10 ML Syringe IV ×3 (00:46→10:26)
[2024-02-15] MEDS: Acetaminophen 500 MG Tablet 1000 MG PO ×3 (05:46→20:41)
[2024-02-15 05:55] LABS: Absolute Lymphocyte Count 0.97 X10^3/uL (0.83-4.51); Absolute Neutrophil Count 6.4 X10^3/uL (2.0-7.7); Hematocrit 31.1 % (37-47); Hemoglobin 10.3 g/dL (12.0-15.0); Lymphocyte # 0.97 X10^3/ul (0.83-4.51); Lymphocyte % 12.1 % (19-41); Mean Corp Hgb Conc 33.1 g/dL (32-36); Mean Corpuscular Hgb 32.3 pg (27.0-32.0); Mean Corpuscular Volume 97.5 fL (81-99); Mean Platelet Vol. 10.4 fl (6.2-12.0); Monocyte# 0.59 X10^3/uL; Monocyte% 7.4 % (0-10); NRBC Flagged by Analyzer 1.1 % (0-5); Neutrophil # 6.37 X10^3/uL (2.7-7.7); Neutrophil % 79.6 % (47-70); POSITIVE MORPHOLOGY YES; Platelet Count 184 K/mm3 (150-450); RBC Distribution Width SD 67.1 fl (35.1-43.9); Red Blood Count 3.19 M/mm3 (4.2-5.4)
[2024-02-15 05:58] LABS: Differential Indicated SCAN CRITERIA MET
[2024-02-15 06:47] LABS: Anisocytosis 2+; Differential Comment SCANNED; Platelet Estimate ADEQUATE (ADEQ); Polychromasia 1+
[2024-02-15 06:48] LABS: Ovalocyte 2+; Tear Drop Cell 1+
[2024-02-15 06:54] LABS: Anion Gap 5 (5-15); BUN 37 mg/dL (7-18); BUN/Creat Ratio 33.6 RATIO (10-20); Calcium,Total 8.3 mg/dL (8.5-10.1); Chloride 111 mmol/L (98-107); EST Glomerular Filtration Rate 50 mL/min (>60); Est Glom Filt Rate - Afr Amer 60 mL/min (>60); Estimated Creatinine Clearance 20.81 ml/min; Glucose 171 mg/dL (74-106); Potassium 4.1 mmol/L (3.5-5.1); Sodium Level 137 mmol/L (136-145)
[2024-02-15] MEDS: Ensure Plus High Protein 120 ML LIQUID PO ×3 (08:57→20:41)
[2024-02-15] MEDS: Senna/Docusate Sodium 1 Tablet 2 TABLET PO ×2 (08:58)
[2024-02-15] MEDS: Isosorbide Mononitrate 60 MG Tablet PO (08:58)
[2024-02-15] MEDS: Enoxaparin 30 MG/0.3 ML Syringe SC (08:58)
[2024-02-15] MEDS: Empagliflozin 10 MG Tablet PO (08:59)
[2024-02-15] MEDS: guaiFENesin/D-Methorphan TAB.SR.12H 2 TABLET PO ×2 (08:59→20:41)
[2024-02-15] MEDS: Calcium Carbonate 500 MG Tablet PO ×3 (08:59→16:03)
[2024-02-15] MEDS: PARoxetine 10 MG Tablet PO (08:59)
[2024-02-15] MEDS: Metoprolol Tartrate 5 MG/5 ML Vial 2.5 MG IV (10:25)
[2024-02-15] MEDS: Metoprolol Tartrate 50 MG Tablet PO ×2 (10:25→20:40)
[2024-02-15] MEDS: Latanoprost 0.005% 1 Bottle 1 DRP EACH EYE (20:39)
[2024-02-16] VITALS (7 sets, daily range): BP systolic 107–111; BP diastolic 61–76; PULSE 95–108; RESP 18; TEMP 36.3–37; O2SAT 94–100; BMI 15.3
[2024-02-16] MEDS: Acetaminophen 500 MG Tablet 1000 MG PO ×3 (05:24→21:49)
[2024-02-16 06:06] LABS: Hematocrit 32.4 % (37-47); Hemoglobin 10.6 g/dL (12.0-15.0); Mean Corp Hgb Conc 32.7 g/dL (32-36); Mean Corpuscular Hgb 32.3 pg (27.0-32.0); Mean Corpuscular Volume 98.8 fL (81-99); Mean Platelet Vol. 10.5 fl (6.2-12.0); POSITIVE COUNT YES; POSITIVE MORPHOLOGY YES; Platelet Count 255 K/mm3 (150-450); RBC Distribution Width CV 18.5 % (11.6-14.6); RBC Distribution Width SD 66.3 fl (35.1-43.9); Red Blood Count 3.28 M/mm3 (4.2-5.4)
[2024-02-16 06:39] LABS: Differential Indicated MANUAL DIFF
[2024-02-16 06:41] LABS: Lymphocyte 10 % (19-41); Metamyelocyte 3 % (0-1); Monocyte 2 % (0-10); Myelocyte 1 % (0-0); Neutrophil-Band 1 % (0-5); Neutrophil-Segmented 83 % (47-70); Nucleated Red Bld Cells,Manual 7 % (0-5); Total Cells Counted 100 (MANUAL DIFF)
[2024-02-16 06:44] LABS: Platelet Estimate ADEQUATE (ADEQ)
[2024-02-16 06:45] LABS: Absolute Neutrophil Count 8.4 X10^3/uL (2.0-7.7); Anisocytosis 2+; Ovalocyte 2+; Polychromasia 1+; Stomatocyte 1+
[2024-02-16 08:02] LABS: Anion Gap 6 (5-15); BUN 50 mg/dL (7-18); BUN/Creat Ratio 33.6 RATIO (10-20); Calcium,Total 8.6 mg/dL (8.5-10.1); Chloride 108 mmol/L (98-107); Creatinine, Serum 1.49 mg/dL (0.55-1.02); EST Glomerular Filtration Rate 35 mL/min (>60); Est Glom Filt Rate - Afr Amer 42 mL/min (>60); Estimated Creatinine Clearance 15.36 ml/min; Glucose 161 mg/dL (74-106); Sodium Level 138 mmol/L (136-145)
[2024-02-16] MEDS: Calcium Carbonate 500 MG Tablet PO ×3 (08:32→16:26)
[2024-02-16] MEDS: predniSONE 20 MG Tablet 40 MG PO (08:32)
[2024-02-16] MEDS: Ensure Plus High Protein 120 ML LIQUID PO ×3 (08:32→16:26)
[2024-02-16] MEDS: Senna/Docusate Sodium 1 Tablet 2 TABLET PO ×2 (08:34→21:48)
[2024-02-16] MEDS: Enoxaparin 30 MG/0.3 ML Syringe SC (08:34)
[2024-02-16] MEDS: guaiFENesin/D-Methorphan TAB.SR.12H 2 TABLET PO ×2 (08:35→21:48)
[2024-02-16] MEDS: Metoprolol Tartrate 50 MG Tablet PO ×2 (08:35→21:48)
[2024-02-16] MEDS: Empagliflozin 10 MG Tablet PO (08:35)
[2024-02-16] MEDS: PARoxetine 10 MG Tablet PO (08:36)
[2024-02-16] MEDS: Latanoprost 0.005% 1 Bottle 1 DRP EACH EYE (21:47)
[2024-02-16] MEDS: Ondansetron 4 MG/2 ML Vial IV (22:02)
[2024-02-17] VITALS (8 sets, daily range): BP systolic 102–119; BP diastolic 62–84; PULSE 100–129; RESP 16–18; TEMP 35.6–37.1; O2SAT 92–99
[2024-02-17 06:17] LABS: Absolute Lymphocyte Count 1.73 X10^3/uL (0.83-4.51); Absolute Neutrophil Count 9.7 X10^3/uL (2.0-7.7); Basophil# 0.12 X10^3/uL; Basophil% 0.9 % (0-1); Hematocrit 36.6 % (37-47); Lymphocyte # 1.73 X10^3/ul (0.83-4.51); Lymphocyte % 12.7 % (19-41); Mean Corp Hgb Conc 32.8 g/dL (32-36); Mean Corpuscular Hgb 32.3 pg (27.0-32.0); Mean Corpuscular Volume 98.4 fL (81-99); Mean Platelet Vol. 10.7 fl (6.2-12.0); Monocyte% 11.7 % (0-10); NRBC Flagged by Analyzer 16.9 % (0-5); Neutrophil # 9.72 X10^3/uL (2.7-7.7); Neutrophil % 71.4 % (47-70); POSITIVE COUNT YES; POSITIVE DIFFERENTIAL YES; POSITIVE MORPHOLOGY YES; RBC Distribution Width CV 17.5 % (11.6-14.6); RBC Distribution Width SD 62.9 fl (35.1-43.9); Red Blood Count 3.72 M/mm3 (4.2-5.4); White Blood Count 13.6 K/mm3 (4.4-11.0)
[2024-02-17 06:39] LABS: Anion Gap 8 (5-15); BUN 62 mg/dL (7-18); Calcium,Total 9.3 mg/dL (8.5-10.1); Chloride 102 mmol/L (98-107); Creatinine, Serum 1.77 mg/dL (0.55-1.02); Differential Indicated SCAN CRITERIA MET; EST Glomerular Filtration Rate 29 mL/min (>60); Est Glom Filt Rate - Afr Amer 35 mL/min (>60); Estimated Creatinine Clearance 12.93 ml/min; Glucose 156 mg/dL (74-106); Potassium 5.6 mmol/L (3.5-5.1); Sodium Level 128 mmol/L (136-145)
[2024-02-17 07:31] LABS: Reactive Lymphocyte 1+
[2024-02-17] MEDS: Ondansetron 4 MG/2 ML Vial IV (07:45)
[2024-02-17] MEDS: 0.9% Saline Lock 10 ML Syringe IV (07:45)
[2024-02-17] MEDS: Metoprolol Tartrate 50 MG Tablet PO ×2 (07:53→20:49)
[2024-02-17] MEDS: Isosorbide Mononitrate 60 MG Tablet PO (07:54)
[2024-02-17] MEDS: Hydrocortisone Sod Succinate 100 MG/2 ML Vial 50 MG IV (09:08)
[2024-02-17] MEDS: 0.9% Normal Saline (1000mL) 1,000 ML 125 ML IV ×2 (09:08→18:22)
[2024-02-17] MEDS: Calcium Carbonate 500 MG Tablet PO ×3 (09:10→18:22)
[2024-02-17] MEDS: Ensure Plus High Protein 120 ML LIQUID PO ×3 (11:11→18:22)
[2024-02-17] MEDS: Sodium Polystyrene Sulfonate 15 GM/60 ML UDC 30 GM PO (11:11)
[2024-02-17] MEDS: Enoxaparin 30 MG/0.3 ML Syringe SC (11:12)
[2024-02-17] MEDS: guaiFENesin/D-Methorphan TAB.SR.12H 2 TABLET PO (11:13)
[2024-02-17] MEDS: Senna/Docusate Sodium 1 Tablet 2 TABLET PO (11:14)
[2024-02-17] MEDS: PARoxetine 10 MG Tablet PO (11:14)
[2024-02-17] MEDS: Empagliflozin 10 MG Tablet PO (11:14)
[2024-02-17 13:49] LABS: Pathologist Review Reviewed
[2024-02-17] MEDS: Acetaminophen 500 MG Tablet 1000 MG PO (14:43)
[2024-02-17] MEDS: Latanoprost 0.005% 1 Bottle 1 DRP EACH EYE (21:04)
[2024-02-18 04:00] VITALS: BP 109/74; PULSE 99; RESP 18; TEMP 35.6; O2SAT 98
[2024-02-18] MEDS: Acetaminophen 500 MG Tablet 1000 MG PO ×2 (04:05→15:00)
[2024-02-18 05:54] LABS: Hematocrit 32.7 % (37-47); Hemoglobin 10.6 g/dL (12.0-15.0); Mean Corp Hgb Conc 32.4 g/dL (32-36); Mean Corpuscular Hgb 32.1 pg (27.0-32.0); Mean Corpuscular Volume 99.1 fL (81-99); Mean Platelet Vol. 10.5 fl (6.2-12.0); POSITIVE COUNT YES; POSITIVE DIFFERENTIAL YES; POSITIVE MORPHOLOGY YES; Platelet Count 278 K/mm3 (150-450); RBC Distribution Width CV 17.5 % (11.6-14.6); RBC Distribution Width SD 62.4 fl (35.1-43.9)
[2024-02-18 06:24] LABS: Anion Gap 8 (5-15); BUN 64 mg/dL (7-18); BUN/Creat Ratio 40.3 RATIO (10-20); Calcium,Total 8.8 mg/dL (8.5-10.1); Chloride 106 mmol/L (98-107); Creatinine, Serum 1.59 mg/dL (0.55-1.02); EST Glomerular Filtration Rate 32 mL/min (>60); Est Glom Filt Rate - Afr Amer 39 mL/min (>60); Estimated Creatinine Clearance 14.39 ml/min; Glucose 177 mg/dL (74-106); Potassium 4.1 mmol/L (3.5-5.1); Sodium Level 135 mmol/L (136-145)
[2024-02-18 07:07] VITALS: O2SAT 92
[2024-02-18 09:42] LABS: Scan Smear per Review Criteria MANUAL DIFF
[2024-02-18 09:43] LABS: Differential Indicated MANUAL DIFF
[2024-02-18 09:47] LABS: Corrected WBC 12.1 K/mm3 (4.4-11.0); Lymphocyte 22 % (19-41); Monocyte 5 % (0-10); Neutrophil-Band 1 % (0-5); Neutrophil-Segmented 72 % (47-70); Nucleated Red Bld Cells,Manual 17 % (0-5); Total Cells Counted 100 (MANUAL DIFF)
[2024-02-18 09:50] LABS: Absolute Lymphocyte Count 3.12 X10^3/uL (0.83-4.51); Absolute Neutrophil Count 10.4 X10^3/uL (2.0-7.7)
[2024-02-18 09:52] LABS: Acanthocytes RARE; Anisocytosis 1+; Burr Cells RARE; Macrocytosis 1+; Ovalocyte 1+; Platelet Estimate ADEQUATE (ADEQ); Polychromasia 2+; Schistocytes RARE
[2024-02-18 10:00] VITALS: BP 103/69; PULSE 66; RESP 15; TEMP 37; O2SAT 96
[2024-02-18] MEDS: Calcium Carbonate 500 MG Tablet PO ×2 (10:03→15:00)
[2024-02-18] MEDS: Senna/Docusate Sodium 1 Tablet 2 TABLET PO (10:03)
[2024-02-18] MEDS: PARoxetine 10 MG Tablet PO (10:03)
[2024-02-18 10:04] VITALS: PULSE 66
[2024-02-18] MEDS: guaiFENesin/D-Methorphan TAB.SR.12H 2 TABLET PO (10:04)
[2024-02-18] MEDS: Metoprolol Tartrate 50 MG Tablet PO (10:04)
[2024-02-18] MEDS: Isosorbide Mononitrate 60 MG Tablet PO (10:05)
[2024-02-18] MEDS: Ensure Plus High Protein 120 ML LIQUID PO ×2 (10:05→15:00)
[2024-02-18] MEDS: Hydrocortisone 10 MG Tablet PO (10:05)
[2024-02-18] MEDS: Empagliflozin 10 MG Tablet PO (10:05)
[2024-02-18] MEDS: Enoxaparin 30 MG/0.3 ML Syringe SC (10:05)
[2024-02-18 14:00] VITALS: BP 122/76; PULSE 64; RESP 16; TEMP 36.6; O2SAT 97
[2024-02-18 14:39] LABS: Pathologist Review Reviewed
[2024-02-20 08:07] LABS: Pathologist Review Reviewed
== END 2024-02-18 15:30 | disposition skilled nursing facility (03) | DRG 481 ==
LOC: ED 15:11 → MS3 16:40 → PCU 02-12 16:11
PROVIDERS: Student in an Organized Health Care Education/Training Program; Emergency Provider Emergency Medicine; PCP Family Medicine; Visit Provider Student in an Organized Health Care Education/Training Program
PROC: 0QS636Z Reposition Right Upper Femur with Intramedullary Internal Fixation Device, Percutaneous Approach (ICD-10-PCS; CPT 27245; principal; 2024-02-13 16:00)
DX: S72.141A Displaced intertrochanteric fracture of right femur, initial encounter for closed fracture (principal); D62 Acute posthemorrhagic anemia; E27.40 Unspecified adrenocortical insufficiency; I50.32 Chronic diastolic (congestive) heart failure; E87.1 Hypo-osmolality and hyponatremia; Z68.1 Body mass index [BMI] 19.9 or less, adult; I11.0 Hypertensive heart disease with heart failure; J44.9 Chronic obstructive pulmonary disease, unspecified; F32.A Depression, unspecified; I48.91 Unspecified atrial fibrillation; E78.5 Hyperlipidemia, unspecified; I25.10 Atherosclerotic heart disease of native coronary artery without angina pectoris; E87.5 Hyperkalemia; W19.XXXA Unspecified fall, initial encounter; Z79.818 Long term (current) use of other agents affecting estrogen receptors and estrogen levels; Z79.84 Long term (current) use of oral hypoglycemic drugs; Z90.710 Acquired absence of both cervix and uterus; Z79.891 Long term (current) use of opiate analgesic; Z95.5 Presence of coronary angioplasty implant and graft; Z79.83 Long term (current) use of bisphosphonates; R63.6 Underweight
CPT/HCPCS: 36415; 51702; 71045; 73502; 76000; 80048; 80053; 81001; 82306; 85025; 85610; 85730; 86850; 86900; 86901; 86920; 87426; 93005; 94762; 97162; 97166; 97530; 97535; 97802; 99252; 99285; C1776; J7030; J7040; J7120; P9016; A4216; G0463; J0612; J2405